=== PATIENT | female | born 1970 | race Caucasian/White ===

== ENCOUNTER 2019-01-10 15:47 | Emergency (ER) | payer SELFPAY ==
[~2019-01-10] VITALS: Ht 170.2 cm; Wt 89.4 kg
[2019-01-10] MEDS ORDERED: NITROGLYCERIN 0.4 MG SL TABS BTL 25'S SL PRN (16:15)
--- NOTE | 2019-01-10 16:19 | ED Chest Pain ---
General Chief Complaint: Cardiac/General Problems Stated Complaint: CHEST PAIN, RT ARM NUMB Nursing Triage Note: Ambulatory to rm 3. Pt c/o chest pain that began approximately 1 hour prior to arrival. Pt reports feeling as if there are "a ton of bricks sitting on my chest." Pt also c/o dizziness and pain radiating to L arm. Pt reports having a pacemaker. Nursing Sepsis Screen: No Definite Risk (CHARLOTTE NUNO DO) History of Present Illness Date Seen by Provider: Jan 10, 2019 Time Seen by Provider: 16:06 This is a 48-year-old female with a history of hypertension, pacemaker/ defibrillator placement, here for chest pain that started 1 hour ago at rest. It feels "like a ton of bricks on my chest". She says she has felt this pain in the past and denies a history of DC or PE. It is not pleuritic. No significant shortness of breath. No leg swelling. Mild cough, no fever, no hemoptysis. No recent stress test, no cardiac stents. No paresthesias in the extremities. Constant, moderate, nonradiating. No modifying factors. (CHARLOTTE NUNO DO) Allergies and Home Medications Allergies Coded Allergies: aspirin (Verified Allergy, Unknown, 01/10/19) morphine (Verified Allergy, Unknown, 01/10/19) Patient Home Medication List Home Medication List Reviewed: Yes (CHARLOTTE NUNO DO) Review of Systems Review of Systems Constitutional: no symptoms reported EENTM: No Symptoms Reported Respiratory: No Symptoms Reported Cardiovascular: See HPI Gastrointestinal: No Symptoms Reported Genitourinary: No Symptoms Reported Musculoskeletal: no symptoms reported Skin: no symptoms reported Psychiatric/Neurological: No Symptoms Reported Endocrine: No Symptoms Reported Hematologic/Lymphatic: No Symptoms Reported (CHARLOTTE NUNO DO) Past Oxmevlx-Yqhleq-Fgdpeo Hx Past Med/Social Hx: Reviewed Nursing Past Med/Soc Hx (CHARLOTTE NUNO DO) Patient Social History Recent Foreign Travel: No Contact w/Someone Who Travel: No Recent Infectious Disease Expo: No (CHARLOTTE NUNO DO) Physical Exam Vital Signs Vital Signs - First Documented 01/10/19 15:47 Temp 98.1 Pulse 86 Resp 10 B/P (MAP) 192/112 (138) Pulse Ox 98 O2 Delivery Room Air (LAMIN ADLER MD) Vital Signs Capillary Refill : Less Than 3 Seconds (CHARLOTTE NUNO DO) Height, Weight, BMI Height: 5'7.00" Weight: 197lbs. oz. 89.122694fx; BMI Method:Stated General Appearance: No Apparent Distress HEENT: PERRL/EOMI, Normal ENT Inspection, Moist Mucous Membranes Neck: Non Tender Respiratory: Lungs Clear; No Rales, No Rhonci, No Wheezing Cardiovascular: Regular Rate, Rhythm, No Edema, Normal Peripheral Pulses Gastrointestinal: Non Tender, Soft Neurologic/Psychiatric: Alert, Oriented x3, No Motor/Sensory Deficits, Normal Mood/Affect Skin: Warm/Dry (CHARLOTTE NUNO DO) Progress/Results/Core Measures Results/Orders Lab Results Laboratory Tests Test 01/10/19 16:00 01/10/19 18:54 Range/Units White Blood Count 8.5 4.3-11.0 10^3/uL Red Blood Count 5.06 4.35-5.85 10^6/uL Hemoglobin 15.8 11.5-16.0 G/DL Hematocrit 48 35-52 % Mean Corpuscular Volume 94 80-99 FL Mean Corpuscular Hemoglobin 31 25-34 PG Mean Corpuscular Hemoglobin Concent 33 32-36 G/DL Red Cell Distribution Width 14.1 10.0-14.5 % Platelet Count 223 130-400 10^3/uL Mean Platelet Volume 10.4 7.4-10.4 FL Prothrombin Time 12.4 12.2-14.7 SEC INR Comment 0.9 0.8-1.4 Activated Partial Thromboplast Time 27 24-35 SEC Sodium Level 138 135-145 MMOL/L Potassium Level 4.1 3.6-5.0 MMOL/L Chloride Level 98 98-107 MMOL/L Carbon Dioxide Level 24 21-32 MMOL/L Anion Gap 16 H 5-14 MMOL/L Blood Urea Nitrogen 14 7-18 MG/DL Creatinine 0.68 0.60-1.30 MG/DL Estimat Glomerular Filtration Rate > 60 BUN/Creatinine Ratio 21 Glucose Level 99 70-105 MG/DL Calcium Level 9.3 8.5-10.1 MG/DL Corrected Calcium 8.5-10.1 MG/DL Magnesium Level 1.9 1.8-2.4 MG/DL Total Bilirubin 0.3 0.1-1.0 MG/DL Aspartate Amino Transf (AST/SGOT) 11 5-34 U/L Alanine Aminotransferase (ALT/SGPT) 12 0-55 U/L Alkaline Phosphatase 114 40-136 U/L Troponin T < 6 6 <=10 NG/L Total Protein 8.0 6.4-8.2 GM/DL Albumin 4.7 H 3.2-4.5 GM/DL (LAMIN ADLER MD) My Orders Orders - LAMIN ADLER MD Troponin T (01/10/19 18:40) (LAMIN ADLER MD) Medications Given in ED Current Medications Medications Dose Ordered Sig/Norma Route Start Time Stop Time Status Last Admin Dose Admin Nitroglycerin 0.4 mg UD PRN SL 01/10/19 16:15 01/10/19 20:14 DC 01/10/19 16:25 0.4 MG (LAMIN ADLER MD) Vital Signs/I&O 01/10/19 01/10/19 15:47 19:54 Temp 98.1 Pulse 86 114 Resp 10 16 B/P (MAP) 192/112 (138) 164/104 (124) Pulse Ox 98 100 O2 Delivery Room Air Room Air (LAMIN ADLER MD) Blood Pressure Mean: 138 Progress Progress Note #1: Progress Note This is a 48-year-old female with a history of hypertension, tobacco abuse, here for chest pain. She is significantly hypertensive. We will treat with nitroglycerin initially and reassess. ECG is reassuring with only nonspecific change in aVF, T-wave inversion in 3. Progress Note #2: Progress Note Patient feels better after morphine. Vitals improved. Initial troponin is negative. We will check a repeat troponin and discharge if negative. Care is signed out to oncoming provider at 6:45 PM. (CHARLOTTE NUNO DO) Progress Note : Time: 19:50 Progress Note I assumed care of the patient at shift change from Dr. Nuno. She was feeling better and bp was improved. Awaiting repeat Troponin which came back still negative. Counseled to follow up with her PCP and to continue on regular medicines as prescribed. (LAMIN ADLER MD) EKG : Comment 2905: Normal sinus rhythm rate of 76. Normal axis. Nonspecific T-wave flattening in lead aVF, T-wave inversion in lead 3. Possible left atrial enlargement. (HCARLOTTE NUNO DO) Departure Impression Primary Impression: Chest pain Qualified Codes: R07.9 - Chest pain, unspecified Additional Impression: Hypertension Qualified Codes: I10 - Essential (primary) hypertension Disposition: 01 HOME, SELF-CARE Condition: Stable Departure-Patient Inst. Decision time for Depature: 20:06 (LAMIN ADLER MD) Referrals: RICHARD WILDE MD (PCP/Family) Primary Care Physician Patient Instructions: Chest Pain (DC), High Blood Pressure (DC) Add. Discharge Instructions: Check with the clinic for continued problems with your blood pressure and chest pressure in your chest. Your tests tonight have all looked ok and the heart tests have looked ok. Take your medicines as prescribed and follow up with Dr. Wilde in clinic. All discharge instructions reviewed with patient and/or family. Voiced understanding. CHARLOTTE NUNO DO Jan 10, 2019 16:19 LAMIN ADLER MD Jan 10, 2019 20:08
[2019-01-10 16:25] LABS: HEMOGLOBIN 15.8 G/DL (11.5-16.0); WHITE BLOOD COUNT 8.5 10^3/uL (4.3-11.0)
[2019-01-10 16:26] LABS: MEAN PLATELET VOLUME 10.4 FL (7.4-10.4); RED CELL DISTRIBUTION WIDTH 14.1 % (10.0-14.5)
--- NOTE | 2019-01-10 16:30 | NUR ---
Pt reassessed and pt reports pain worsened after nitro.
[2019-01-10 16:34] LABS: INR 0.9 (0.8-1.4); PROTHROMBIN TIME PATIENT 12.4 SEC (12.2-14.7)
[2019-01-10 16:41] LABS: ALANINE AMINOTRANSFERASE 12 U/L (0-55); ALBUMIN 4.7 GM/DL (3.2-4.5); ALKALINE PHOSPHATASE 114 U/L (40-136); BILIRUBIN,TOTAL 0.3 MG/DL (0.1-1.0); BUN/CREATININE RATIO 21; CALCIUM 9.3 MG/DL (8.5-10.1); CARBON DIOXIDE 24 MMOL/L (21-32); CHLORIDE 98 MMOL/L (98-107); CREATININE SERUM 0.68 MG/DL (0.60-1.30); GFR ESTIMATED > 60; GLUCOSE 99 MG/DL (70-105); MAGNESIUM 1.9 MG/DL (1.8-2.4); POTASSIUM 4.1 MMOL/L (3.6-5.0); SODIUM 138 MMOL/L (135-145)
--- NOTE | 2019-01-10 16:41 | Diagnostic Imaging Report ---
INDICATION: Chest pain EXAM: Portable chest at 4:09 PM FINDINGS: There is a unipolar pacemaker with IACD. Heart size and pulmonary vascularity are normal. Lungs are clear. There are no effusions or pneumothoraces. IMPRESSION: Negative chest. Dictated by: Dictated on workstation # [id number]
[2019-01-10] MEDS ORDERED: morphine INJ 10 MG/ML 1ML (SYR OR VIAL) IVP STA (17:27)
--- NOTE | 2019-01-10 19:20 | NUR ---
Report given to RYAN Chatman
--- NOTE | 2019-01-10 19:52 | NUR ---
Doctor Viola in to see the patient.
[2019-01-10 19:54] VITALS: BP 164/104
== END 2019-01-10 20:13 | disposition home or self-care (01) ==
LOC: EDUNIT# 15:47 → ER FS 15:48
DX: R07.9 Chest pain, unspecified (principal); I10 Essential (primary) hypertension; Z95.0 Presence of cardiac pacemaker; Z88.6 Allergy status to analgesic agent; Z88.5 Allergy status to narcotic agent
CPT/HCPCS: 36415; 71045; 80053; 83735; 84484; 85027; 85610; 85730; 93041

== ENCOUNTER 2019-02-27 19:28 | Emergency (ER) | payer BC, OTHER ==
[~2019-02-27] VITALS: Ht 170.2 cm; Wt 90.7 kg
[2019-02-27] MEDS ORDERED: RT-ALBUTEROL/IPRATROPIUM 3 ML (DUONEB) VIAL INH ONE (20:15)
--- NOTE | 2019-02-27 20:19 | Diagnostic Imaging Report ---
INDICATION: Cough for two months. EXAMINATION: PA and lateral views of the chest were obtained at 7:51 p.m. COMPARISON: 01/10/2019. FINDINGS: Pacemaker is unchanged. The heart is normal in size. Mediastinal silhouette is unremarkable. The lungs are clear. There is no pneumothorax, pleural fluid or focal infiltrate. IMPRESSION: No change in pacemaker device. No acute infiltrate or acute process in the chest. Dictated by: Dictated on workstation # [id number]
[2019-02-27 20:33] LABS: BASOPHILS % (AUTO) 0 % (0-10); EOSINOPHILS # (AUTO) 0.2 10^3/uL (0.0-0.3); EOSINOPHILS % (AUTO) 2 % (0-10); HEMATOCRIT 43 % (35-52); HEMOGLOBIN 14.4 G/DL (11.5-16.0); LYMPHOCYTES # (AUTO) 3.4 X 10^3 (1.0-4.0); LYMPHOCYTES % (AUTO) 34 % (12-44); MEAN CORPUSCULAR HEMOGLOBIN 32 PG (25-34); MEAN CORPUSCULAR HGB CONC 34 G/DL (32-36); MEAN CORPUSCULAR VOLUME 94 FL (80-99); MEAN PLATELET VOLUME 9.8 FL (7.4-10.4); MONOCYTES # (AUTO) 0.7 X 10^3 (0.0-1.0); MONOCYTES % (AUTO) 7 % (0-12); NEUTROPHILS # (AUTO) 5.7 X 10^3 (1.8-7.8); NEUTROPHILS % (AUTO) 57 % (42-75); PLATELET COUNT 277 10^3/uL (130-400); RED CELL DISTRIBUTION WIDTH 13.5 % (10.0-14.5); WHITE BLOOD COUNT 9.9 10^3/uL (4.3-11.0)
[2019-02-27] MEDS ORDERED: fentaNYL INJECTION 100 MCG/2 ML AMP IVP STA ×2 (20:42→23:15)
--- OUTSIDE RECORDS SUMMARY | 2019-02-27 20:42 | XMS REPORT | Continuity of Care Document ---
Author Organization Unknown Address Unknown Allergies There is no data. Medications There is no data. Problems There is no data. Procedures There is no data. Results Test Result Range PDM - 09 PANEL (PROFILE 1) - 01/08/19 15:01 Prescribed Drug 1 Oxycodone NRG Creatinine 87.5 mg/dL > or=20.0 pH 7.17 4.5 - 9.0 Oxidant NEGATIVE mcg/mL <200 Amphetamines NEGATIVE ng/mL <500 medMATCH Amphetamines CONSISTENT NRG Benzodiazepines NEGATIVE ng/mL <100 medMATCH Benzodiazepines CONSISTENT NRG Marijuana Metabolite NEGATIVE ng/mL <20 medMATCH Marijuana Metab CONSISTENT NRG Cocaine Metabolite NEGATIVE ng/mL <150 medMATCH Cocaine Metab CONSISTENT NRG Opiates POSITIVE ng/mL <100 Oxycodone POSITIVE ng/mL <100 COMMENT NRG Codeine NEGATIVE ng/mL <50 medMATCH Codeine CONSISTENT NRG Hydrocodone 2022 ng/mL <50 medMATCH Hydrocodone INCONSISTENT NRG Hydromorphone 184 ng/mL <50 medMATCH Hydromorphone INCONSISTENT NRG Morphine NEGATIVE ng/mL <50 medMATCH Morphine CONSISTENT NRG Norhydrocodone 3270 ng/mL <50 medMATCH Norhydrocodone INCONSISTENT NRG Noroxycodone 568 ng/mL <50 medMATCH Noroxycodone CONSISTENT NRG Oxycodone NEGATIVE ng/mL <50 medMATCH Oxycodone CONSISTENT NRG Oxymorphone 246 ng/mL <50 medMATCH Oxymorphone CONSISTENT NRG Barbiturates NEGATIVE ng/mL <300 medMATCH Barbiturates CONSISTENT NRG Methadone Metabolite NEGATIVE ng/mL <100 medMATCH Methadone Metab CONSISTENT NRG Phencyclidine NEGATIVE ng/mL <25 medMATCH Phencyclidine CONSISTENT NRG Encounters ACCT No. Visit Date/Time Discharge Status Pt. Type Provider Facility Loc./Unit Complaint [id number] 01/22/2019 13:30:00 01/22/2019 23:59:59 [facility] Outpatient RICHARD HERMAN [facility] [id number] 01/08/2019 11:40:00 Document Registration
[2019-02-27] MEDS ORDERED: CYCLOBENZAPRINE 10 MG (FLEXERIL) TAB PO STA (20:44)
[2019-02-27] MEDS ORDERED: NS 100 ML (IVPB) BAG IV ONE (20:45)
[2019-02-27] MEDS ORDERED: CATHETER FLUSH 10 ML SYR IV PRN (20:45)
[2019-02-27] MEDS ORDERED: IOHEXOL 350 MG/ML 100 ML (OMNIPAQUE 350) VIAL IV ONE (20:45)
[2019-02-27] MEDS ORDERED: HOLD METFORMIN - RECEIVED CONTRAST 20 ML VIAL IV SCH (20:45)
--- NOTE | 2019-02-27 20:51 | ED Cough/URI ---
General Chief Complaint: Cough/Cold/Flu Symptoms Stated Complaint: COUGH,DIZZY, CHEST PAIN, NAUSEA, RT EAR PAIN Nursing Triage Note: Patient states that she has been coughing for 2 months and on antibiotics. She states that Dr. Wilde told her that the next step was to have a CT. Patient states that her chest hurts from coughing, rating it at a 9. Sepsis Screen: No Definite Risk Source: patient History of Present Illness Date Seen by Provider: February 27, 2019 Time Seen by Provider: 20:20 Initial Comments 48 yo F presenting with cough x 2 months and short of breath. She is already had the course of antibiotics for this. She was told by Dr. Wilde the next thing she would need to do would be to have a CAT scan of her chest. She has been coughing so much that she's having pain in the anterior part of her chest. She rates it a 9 out of 10. It hurts more when palpated. She states that she just wants to get a good night's rest. She is also having a lot of right ear pain and sinus pain to the right side of her face. This is worse today. She has been getting eardrops for the right ear but it is not helping. She also has been having a lot of cough but hardly ever brings anything up. She denies having any fever or chills. She does have some nausea with this. She also gets dizzy when she is coughing hard. Allergies and Home Medications Allergies Coded Allergies: aspirin (Verified Allergy, Unknown, 01/10/19) morphine (Verified Allergy, Unknown, 01/10/19) Home Medications Cephalexin 500 Mg Tablet, 500 MG PO QID Prescribed by: LAMIN ADLER on 02/27/192321 Cyclobenzaprine HCl 10 Mg Tablet, 10 MG PO HS PRN for SPASMS Prescribed by: LAMIN ADLER on 02/27/19 232 Patient Home Medication List Home Medication List Reviewed: Yes Review of Systems Review of Systems Constitutional: No chills, No diaphoresis; dizziness (more so when she is coughing); No fever; malaise EENTM: ear pain (right-sided), tearing (right side), hoarseness, nose congestion, throat pain (from coughing), other (sinus pain and pressure on the right); No blurred vision, No mouth pain, No mouth swelling, No epistaxis Respiratory: see HPI, cough; No hemoptysis; short of breath; No stridor; wheezing Cardiovascular: see HPI, chest pain (anterior chest wall pain from coughing so much) Gastrointestinal: No abdominal pain; nausea Genitourinary: no symptoms reported Musculoskeletal: no symptoms reported Skin: no symptoms reported Psychiatric/Neurological: Headache (right-sided headache from her sinuses and ear pain) Hematologic/Lymphatic: No Symptoms Reported Immunological/Allergic: no symptoms reported Past Agwieut-Obtwne-Ncexlo Hx Past Med/Social Hx: Reviewed Nursing Past Med/Soc Hx Patient Social History Alcohol Use: Denies Use Recreational Drug Use: No Smoking Status: Current Everyday Smoker Type Used: Cigarettes 2nd Hand Smoke Exposure: Yes Recent Foreign Travel: No Contact w/Someone Who Travel: No Recent Infectious Disease Expo: No Recent Hopitalizations: No Physical Abuse: No Sexual Abuse: No Mistreated: No Fear: No Immunizations Up To Date Date of Influenza Vaccine: Jul 16, 2018 Seasonal Allergies Seasonal Allergies: No Past Medical History Surgeries: Yes Defibrillator, Pacemaker Respiratory: No Cardiac: Yes (pacemaker) Hypertension Neurological: No Genitourinary: No Gastrointestinal: No Musculoskeletal: Yes (ruptured disks) Endocrine: No HEENT: No Cancer: No Psychosocial: No Integumentary: No Blood Disorders: No Physical Exam Vital Signs - First Documented 02/27/19 19:33 Temp 97.0 Pulse 91 Resp 22 B/P (MAP) 160/90 (113) Pulse Ox 95 O2 Delivery Room Air Capillary Refill : Less Than 3 Seconds Height: 5'7.00" Weight: 200lbs. 0oz. 90.296970kv; BMI Method:Stated General Appearance: WD/WN, mild distress HEENT: PERRL/EOMI; No photophobia; TM abnormal (R) (right TM is erythematous bulging and has an effusion.), pharyngeal erythema; No tonsillar exudate; other (tenderness to palpation over the frontal and maxillary sinus on the right side. Right conjunctiva is injected) Neck: non-tender, full range of motion, supple, normal inspection Respiratory: no respiratory distress, no accessory muscle use, decreased breath sounds; No crackles, No rales, No rhonchi, No stridor; wheezing (end expiratory wheezing), other (anterior chest wall tenderness especially along the sternal borders) Cardiovascular: normal peripheral pulses, regular rate, rhythm, no murmur Gastrointestinal: normal bowel sounds, non tender, soft, no pulsatile mass Extremities: normal range of motion, non-tender, normal inspection Neurologic/Psychiatric: alert, oriented x 3 Skin: normal color, warm/dry Progress/Results/Core Measures Suspected Sepsis Recent Fever Within 48 Hours: No Infection Criteria Present: None New/Unexplained Altered Menta: No Sepsis Screen: No Definite Risk SIRS Temperature:97.0 Pulse: 91 Respiratory Rate: 22 Laboratory Tests 02/27/19 20:23: White Blood Count 9.9 Blood Pressure 160 /90 Mean: 113 Laboratory Tests 02/27/19 20:23: Creatinine 0.69, Platelet Count 277, Total Bilirubin 0.2 Results/Orders Lab Results Laboratory Tests Test 02/27/19 20:23 Range/Units White Blood Count 9.9 4.3-11.0 10^3/uL Red Blood Count 4.53 4.35-5.85 10^6/uL Hemoglobin 14.4 11.5-16.0 G/DL Hematocrit 43 35-52 % Mean Corpuscular Volume 94 80-99 FL Mean Corpuscular Hemoglobin 32 25-34 PG Mean Corpuscular Hemoglobin Concent 34 32-36 G/DL Red Cell Distribution Width 13.5 10.0-14.5 % Platelet Count 277 130-400 10^3/uL Mean Platelet Volume 9.8 7.4-10.4 FL Neutrophils (%) (Auto) 57 42-75 % Lymphocytes (%) (Auto) 34 12-44 % Monocytes (%) (Auto) 7 0-12 % Eosinophils (%) (Auto) 2 0-10 % Basophils (%) (Auto) 0 0-10 % Neutrophils # (Auto) 5.7 1.8-7.8 X 10^3 Lymphocytes # (Auto) 3.4 1.0-4.0 X 10^3 Monocytes # (Auto) 0.7 0.0-1.0 X 10^3 Eosinophils # (Auto) 0.2 0.0-0.3 10^3/uL Basophils # (Auto) 0.0 0.0-0.1 10^3/uL Sodium Level 142 135-145 MMOL/L Potassium Level 3.4 L 3.6-5.0 MMOL/L Chloride Level 102 98-107 MMOL/L Carbon Dioxide Level 21 21-32 MMOL/L Anion Gap 19 H 5-14 MMOL/L Blood Urea Nitrogen 14 7-18 MG/DL Creatinine 0.69 0.60-1.30 MG/DL Estimat Glomerular Filtration Rate > 60 BUN/Creatinine Ratio 20 Glucose Level 105 70-105 MG/DL Calcium Level 9.1 8.5-10.1 MG/DL Corrected Calcium 8.8 8.5-10.1 MG/DL Total Bilirubin 0.2 0.1-1.0 MG/DL Aspartate Amino Transf (AST/SGOT) 18 5-34 U/L Alanine Aminotransferase (ALT/SGPT) 21 0-55 U/L Alkaline Phosphatase 130 40-136 U/L Total Protein 7.6 6.4-8.2 GM/DL Albumin 4.4 3.2-4.5 GM/DL My Orders Orders - LAMIN ADLER MD Cbc With Automated Diff (02/27/19 20:07) Comprehensive Metabolic Panel (02/27/19 20:07) Albuterol/Ipra Inhalation Soln (Duoneb I (02/27/19 20:15) Chest Pa/Lat (2 View) (02/27/19 20:07) Ed Iv/Invasive Line Start (02/27/19 20:07) Sputum Culture (02/27/19 20:07) Svn Small Volume Nebulizer (02/27/19 20:07) Fentanyl Injection (Sublimaze Injection (02/27/19 20:42) Ct Sinus Complete Wo (02/27/19 20:43) Ct Chest W (02/27/19 20:43) Iohexol Injection (Omnipaque 350 Mg/Ml 1 (02/27/19 20:45) Received Contrast (Hold Metformin- Contr (02/27/19 20:45) Sodium Chloride Flush (Catheter Flush Sy (02/27/19 20:45) Ns (Ivpb) (Sodium Chloride 0.9% Ivpb Bag (02/27/19 20:45) Cyclobenzaprine Tablet (Flexeril Tablet) (02/27/19 20:44) Fentanyl Injection (Sublimaze Injection (02/27/19 23:15) Medications Given in ED Current Medications Medications Dose Ordered Sig/Norma Route Start Time Stop Time Status Last Admin Dose Admin Albuterol/ Ipratropium 3 ml ONCE ONCE INH 02/27/19 20:15 02/27/19 20:16 DC 02/27/19 20:15 3 ML Iohexol 75 ml ONCE ONCE IV 02/27/19 20:45 02/27/19 20:46 DC 02/27/19 20:59 75 ML Sodium Chloride 10 ml NEEDED PRN IV 02/27/19 20:45 02/28/19 00:25 DC 02/27/19 20:59 10 ML Sodium Chloride 100 ml ONCE ONCE IV 02/27/19 20:45 02/27/19 20:46 DC 02/27/19 20:59 100 ML Vital Signs/I&O 02/27/19 02/27/19 02/27/19 19:33 19:33 23:32 Temp 97.0 98.9 Pulse 91 86 Resp 22 18 B/P (MAP) 160/90 (113) 148/92 (110) Pulse Ox 95 96 O2 Delivery Room Air Room Air Room Air Capillary Refill : Less Than 3 Seconds Blood Pressure Mean: 113 Progress Note #1: Progress Note Obtain labs and chest x-ray as well as a sputum culture she expectorates anything. Will try a DuoNeb breathing treatment for her cough and shortness of breath. Progress Note #2: Time: 20:35 Progress Note Add on a CT of her sinuses and chest since she has such tenderness to her sinuses on the right side and erythema to the TM on that side. Also since she reports the Dr. Wilde had recommended she get a CAT scan of her chest will determine if there is any other pathology that might be causing her chronic cough over the last few months here. Will try dose of fentanyl to see if it will help with her cough and chest pain. will also try a dose of cyclobenzaprine as a muscle relaxer to try and help her chest wall pain Progress Note #3: Progress Note CT scan of her sinuses showed that she has right-sided maxillary sinus infection. She had a midesophagus mass show up on the CT of her chest. She had no complaints of difficulty swallowing when I asked her about it however she later admitted that occasionally she does have difficulty with swallowing things. The area of the mass is sitting in spot that it could be pressing against part of her trachea and airway were could be causing some irritation and potentially contributing to her cough. There were no abnormalities in the lungs themselves and no lymphadenopathy. Will have the patient follow-up through Dr. Wilde to obtain an EGD to further evaluate the mid esophageal mass. Will do a longer course of antibiotics to help try and treat for the maxillary sinusitis. Also encouraged to see ENT if not improving. Will also prescribe cyclobenzaprine for home to the try at bedtime to help her rest and help with her chest wall pain. Diagnostic Imaging Diagonstic Imaging: Xray Plain Films/CT/US/NM/MRI: chest Comments NAME: JENNIFER DICKERSON [facility] REC#: [id number] PT STATUS: REG ER : 1970 PHYSICIAN: LAMIN ADLER MD ADMIT DATE: 02/27/19/ER FS Signed Date of Exam:02/27/19 CHEST PA/LAT (2 VIEW) INDICATION: Cough for two months. EXAMINATION: PA and lateral views of the chest were obtained at 7:51 p.m. COMPARISON: 01/10/2019. FINDINGS: Pacemaker is unchanged. The heart is normal in size. Mediastinal silhouette is unremarkable. The lungs are clear. There is no pneumothorax, pleural fluid or focal infiltrate. IMPRESSION: No change in pacemaker device. No acute infiltrate or acute process in the chest. Dictated by: Dictated on workstation # [id number] Dict: 02/27/192012 Trans: 02/27/192039 [facility] [id number] Interpreted by: MAIKOL FERRARA MD Electronically signed by: MAIKOL FERRARA MD 02/27/192039 Reviewed: Reviewed by Me (and radiologist reading.) Diagonstic Imaging: CT Plain Films/CT/US/NM/MRI: chest Comments NAME: JENNIFER DICKERSON [facility] REC#: [id number] PT STATUS: REG ER : 1970 PHYSICIAN: LAMIN ADLER MD ADMIT DATE: 02/27/19/ER FS Signed Date of Exam:02/27/19 CT CHEST W INDICATION: Cough x2 months, history of pacemaker. EXAMINATION: CT chest was obtained with IV contrast bolus. COMPARISON: There is no prior chest CT for comparison. FINDINGS: There is a focal area of mass effect associated with the mid thoracic esophagus, measuring about 3.0 cm x 1.5 cm in the axial plane. The esophagus above and below this level does not appear remarkable. There is no adenopathy in the keenan or mediastinum. There are no enlarged axillary nodes. There is a pacemaker device in place. There is an incidental 1.5 cm right thyroid nodule, inferiorly. There is no pleural or pericardial fluid. There is no overt bony abnormality in the chest. Lung parenchymal windows demonstrate some minimal dependent atelectatic changes in the lung bases. There is no consolidation or discrete pulmonary parenchymal nodule. Visualized portions of the upper abdomen demonstrated evidence of previous cholecystectomy. IMPRESSION: There is a focal masslike area in the mid esophagus, this may represent an esophageal mass, extrinsic mass or a possible foreign body lodged in the esophagus. I would suggest further evaluation with endoscopy. There is no adenopathy in the mediastinum or keenan. There is incidental right thyroid nodule which can be followed sonographically. There is no pulmonary parenchymal infiltrate, nodule or pleural fluid. The patient has had previous cholecystectomy. Dictated by: Dictated on workstation # [id number] Dict: 02/27/192111 Trans: 02/27/192211 [facility] [id number] Interpreted by: MAIKOL FERRARA MD Electronically signed by: MAKIOL FERRARA MD 02/27/192211 Reviewed: Reviewed by Me Diagonstic Imaging: CT Plain Films/CT/US/NM/MRI: other (sinuses) Comments NAME: JENNIFER DICKERSON [facility] REC#: [id number] PT STATUS: REG ER : 1970 PHYSICIAN: LAMIN ADLER MD ADMIT DATE: 02/27/19/ER FS Signed Date of Exam:02/27/19 CT SINUS COMPLETE WO INDICATION: Sinusitis and right ear redness and pain. EXAMINATION: CT sinuses were obtained with axial slices without contrast and sagittal and coronal reconstructions. FINDINGS: There is extensive mucosal thickening in the right maxillary sinus. The left maxillary sinus appears clear. The ethmoid air cells are grossly clear. The sphenoid sinuses are clear. The frontal sinuses are hypoplastic. The maxillary teeth are absent. There are lucencies in the maxilla compatible with periodontal disease. There is an old nasal fracture which is healed. There is no orbital mass or hematoma. IMPRESSION: Extensive mucosal thickening in the right maxillary sinus. The remainder of the sinuses are clear. There is no intraorbital hematoma. There are chronic appearing lucencies in the maxilla, maxillary teeth are absent. Dictated by: Dictated on workstation # [id number] Dict: 02/27/192106 Trans: 02/27/192117 E [id number] Interpreted by: MAIKOL FERRARA MD Electronically signed by: MAIKOL FERRARA MD 02/27/192117 Reviewed: Reviewed by Me (and radiologist reading) Departure Impression Primary Impression: Right maxillary sinusitis Additional Impressions: Suppurative otitis media of right ear without rupture of ear drum Esophageal mass Chronic cough Disposition: HOME, SELF-CARE Condition: Stable Departure-Patient Inst. Decision time for Depature: 23:18 Referrals: RICHARD WILDE MD (PCP/Family) Primary Care Physician Patient Instructions: Cough, Adult (DC), EGD-ESOPHAGOGASTRODUODENOSCOPY, Ear Infections (Otitis Media), Sinusitis, Adult (DC) Add. Discharge Instructions: Call Dr. Wilde in the morning to let him know that the CT scan tonight showed a mass in your esophagus and Radiology recommended getting an EGD or scope to look at the mass. This is right against part of your lungs and can be causing irritation that might making you have a cough. You also have sinusitis and an ear infection still so taking a longer course of antibiotics to help clear that up would be helpful as well. You may need to see an ENT doctor if you have continued problems and it is not improving. All discharge instructions reviewed with patient and/or family. Voiced understanding. Scripts Cyclobenzaprine HCl (Cyclobenzaprine HCl) 10 Mg Tablet 10 MG PO HS PRN for SPASMS for 15 Days, #15 TAB 0 Refills Prov: LAMIN ADLER MD 02/27/19 Cephalexin (Cephalexin) 500 Mg Tablet 500 MG PO QID for sinusitis for 14 Days, #56 TAB 0 Refills Prov: LAMIN ADLER MD 02/27/19 LAIMN ADLER MD February 27, 2019 20:51
[2019-02-27 20:59] LABS: ALANINE AMINOTRANSFERASE 21 U/L (0-55); ALBUMIN 4.4 GM/DL (3.2-4.5); ALKALINE PHOSPHATASE 130 U/L (40-136); BILIRUBIN,TOTAL 0.2 MG/DL (0.1-1.0); BUN/CREATININE RATIO 20; CALCIUM 9.1 MG/DL (8.5-10.1); CARBON DIOXIDE 21 MMOL/L (21-32); CHLORIDE 102 MMOL/L (98-107); CREATININE SERUM 0.69 MG/DL (0.60-1.30); GFR ESTIMATED > 60; GLUCOSE 105 MG/DL (70-105); POTASSIUM 3.4 MMOL/L (3.6-5.0); SODIUM 142 MMOL/L (135-145); TOTAL PROTEIN 7.6 GM/DL (6.4-8.2)
--- NOTE | 2019-02-27 21:13 | Diagnostic Imaging Report ---
INDICATION: Sinusitis and right ear redness and pain. EXAMINATION: CT sinuses were obtained with axial slices without contrast and sagittal and coronal reconstructions. FINDINGS: There is extensive mucosal thickening in the right maxillary sinus. The left maxillary sinus appears clear. The ethmoid air cells are grossly clear. The sphenoid sinuses are clear. The frontal sinuses are hypoplastic. The maxillary teeth are absent. There are lucencies in the maxilla compatible with periodontal disease. There is an old nasal fracture which is healed. There is no orbital mass or hematoma. IMPRESSION: Extensive mucosal thickening in the right maxillary sinus. The remainder of the sinuses are clear. There is no intraorbital hematoma. There are chronic appearing lucencies in the maxilla, maxillary teeth are absent. Dictated by: Dictated on workstation # [id number]
--- NOTE | 2019-02-27 21:30 | Diagnostic Imaging Report ---
INDICATION: Cough x2 months, history of pacemaker. EXAMINATION: CT chest was obtained with IV contrast bolus. COMPARISON: There is no prior chest CT for comparison. FINDINGS: There is a focal area of mass effect associated with the mid thoracic esophagus, measuring about 3.0 cm x 1.5 cm in the axial plane. The esophagus above and below this level does not appear remarkable. There is no adenopathy in the keenan or mediastinum. There are no enlarged axillary nodes. There is a pacemaker device in place. There is an incidental 1.5 cm right thyroid nodule, inferiorly. There is no pleural or pericardial fluid. There is no overt bony abnormality in the chest. Lung parenchymal windows demonstrate some minimal dependent atelectatic changes in the lung bases. There is no consolidation or discrete pulmonary parenchymal nodule. Visualized portions of the upper abdomen demonstrated evidence of previous cholecystectomy. IMPRESSION: There is a focal masslike area in the mid esophagus, this may represent an esophageal mass, extrinsic mass or a possible foreign body lodged in the esophagus. I would suggest further evaluation with endoscopy. There is no adenopathy in the mediastinum or keenan. There is incidental right thyroid nodule which can be followed sonographically. There is no pulmonary parenchymal infiltrate, nodule or pleural fluid. The patient has had previous cholecystectomy. Dictated by: Dictated on workstation # [id number]
[2019-02-27] MEDS ORDERED: CYCL10TA9 PO (23:22)
[2019-02-27] MEDS ORDERED: CEPH500T PO (23:22)
[2019-02-27 23:32] VITALS: BP 148/92
== END 2019-02-27 23:32 | disposition home or self-care (01) ==
LOC: EDUNIT# 19:28 → ER FS 19:29
DX: J32.0 Chronic maxillary sinusitis (principal); H66.41 Suppurative otitis media, unspecified, right ear; K22.8 Other specified diseases of esophagus; R05 Cough; I10 Essential (primary) hypertension; F17.210 Nicotine dependence, cigarettes, uncomplicated; Z95.810 Presence of automatic (implantable) cardiac defibrillator; Z88.6 Allergy status to analgesic agent; Z88.5 Allergy status to narcotic agent
CPT/HCPCS: 36415; 70486; 71046; 71260; 80053; 85025; 87070; 87077; 87205; 94640; 96374; 96376

== ENCOUNTER 2019-03-04 21:33 | Emergency (ER) | payer BC ==
[~2019-03-04] VITALS: Ht 172.7 cm; Wt 90.7 kg
[~2019-03-04 21:33] MED LIST: CEPH500T PO; CYCL10TA9 PO
--- OUTSIDE RECORDS SUMMARY | 2019-03-04 21:38 | XMS REPORT | Continuity of Care Document ---
[...] Status Pt. Type Provider Facility Loc./Unit Complaint [id number] 01/22/2019 13:30:00 01/22/2019 23:59:59 [facility] Outpatient RICHARD HERMAN [facility] [id number] 01/08/2019 11:40:00 Document Registration
[2019-03-04] MEDS ORDERED: NITROGLYCERIN 2% OINT 1 GM UNIT DOSE PACKET TOP ONE (22:00)
--- NOTE | 2019-03-04 22:12 | ED General ---
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 Her chest pain is pressure-like and started an hour ago at rest. No significant shortness of breath with this. 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 She is known to cardiology at [facility]. She is significantly hypertensive upon arrival, she states that she has been taking her medications as prescribed. No fever, no leg swelling, no hemoptysis. Allergies and Home Medications Allergies Coded Allergies: aspirin (Verified Allergy, Unknown, 01/10/19) morphine (Verified Allergy, Unknown, 01/10/19) Home Medications Cephalexin 500 Mg Tablet, 500 MG PO QID Prescribed by: LAMIN ADLER on 02/27/192321 Cyclobenzaprine HCl 10 Mg Tablet, 10 MG PO HS PRN for SPASMS Prescribed by: LAMIN ADLER on 02/27/192321 Patient Home Medication List Home Medication List Reviewed: Yes Review of Systems Review of Systems Constitutional: no symptoms reported EENTM: no symptoms reported Respiratory: see HPI Cardiovascular: see HPI Gastrointestinal: no symptoms reported Genitourinary: no symptoms reported Musculoskeletal: no symptoms reported Skin: no symptoms reported Psychiatric/Neurological: No Symptoms Reported Hematologic/Lymphatic: No Symptoms Reported Immunological/Allergic: no symptoms reported Past [place]se[place] Hx Past Med/Social Hx: Reviewed Nursing Past Med/Soc Hx Patient Social History Type Used: Cigarettes 2nd Hand Smoke Exposure: Yes Recent Foreign Travel: No Contact w/Someone Who Travel: No Recent Hopitalizations: No Immunizations Up To Date Date of Influenza Vaccine: Jul 16, 2018 Seasonal Allergies Seasonal Allergies: No Past Medical History Surgeries: Yes Defibrillator, Pacemaker Respiratory: No Cardiac: Yes (pacemaker) Hypertension Neurological: No Genitourinary: No Gastrointestinal: No Musculoskeletal: Yes (ruptured disks) Endocrine: No HEENT: No Cancer: No Psychosocial: No Integumentary: No Blood Disorders: No Physical Exam Vital Signs Vital Signs - First Documented 03/04/19 22:30 Temp 97.7 Pulse 85 Resp 16 B/P (MAP) 205/120 (148) Pulse Ox 97 O2 Delivery Room Air Capillary Refill : Height, Weight, BMI Height: 5'7.00" Weight: 200lbs. 0oz. [id number]; BMI Method:Stated General Appearance: No Apparent Distress HEENT: Moist Mucous Membranes (no visible discomfort) Neck: Supple; No JVD Respiratory: Lungs Clear Cardiovascular: Regular Rate, Rhythm, No Edema, Normal Peripheral Pulses Gastrointestinal: Non Tender, Soft Neurologic/Psychiatric: Alert, No Motor/Sensory Deficits, Normal Mood/Affect Skin: Warm/Dry Progress/Results/Core Measures Suspected Sepsis SIRS Temperature: Pulse: Respiratory Rate: Laboratory Tests 03/04/19 22:00: White Blood Count 9.1 Blood Pressure / Mean: Laboratory Tests 03/04/19 22:00: Creatinine 0.59L, INR Comment 0.9, Platelet Count 261, Total Bilirubin 0.2 Results/Orders Lab Results Laboratory Tests Test 03/04/19 22:00 Range/Units White Blood Count 9.1 4.3-11.0 10^3/uL Red Blood Count 4.19 L 4.35-5.85 10^6/uL Hemoglobin 13.4 11.5-16.0 G/DL Hematocrit 39 35-52 % Mean Corpuscular Volume 34 L 80-99 FL Mean Corpuscular Hemoglobin 32 25-34 PG Mean Corpuscular Hemoglobin Concent 34 32-36 G/DL Red Cell Distribution Width 13.8 10.0-14.5 % Platelet Count 261 130-400 10^3/uL Mean Platelet Volume 9.9 7.4-10.4 FL Neutrophils (%) (Auto) 49 42-75 % Lymphocytes (%) (Auto) 43 12-44 % Monocytes (%) (Auto) 6 0-12 % Eosinophils (%) (Auto) 1 0-10 % Basophils (%) (Auto) 1 0-10 % Neutrophils # (Auto) 4.4 1.8-7.8 X 10^3 Lymphocytes # (Auto) 3.9 1.0-4.0 X 10^3 Monocytes # (Auto) 0.5 0.0-1.0 X 10^3 Eosinophils # (Auto) 0.1 0.0-0.3 10^3/uL Basophils # (Auto) 0.1 0.0-0.1 10^3/uL Prothrombin Time 12.0 L 12.2-14.7 SEC INR Comment 0.9 0.8-1.4 Activated Partial Thromboplast Time 28 24-35 SEC Sodium Level 143 135-145 MMOL/L Potassium Level 3.5 L 3.6-5.0 MMOL/L Chloride Level 104 98-107 MMOL/L Carbon Dioxide Level 20 L 21-32 MMOL/L Anion Gap 19 H 5-14 MMOL/L Blood Urea Nitrogen 11 7-18 MG/DL Creatinine 0.59 L 0.60-1.30 MG/DL Estimat Glomerular Filtration Rate > 60 BUN/Creatinine Ratio 19 Glucose Level 118 H 70-105 MG/DL Calcium Level 8.9 8.5-10.1 MG/DL Corrected Calcium 8.8 8.5-10.1 MG/DL Magnesium Level 1.8 1.8-2.4 MG/DL Total Bilirubin 0.2 0.1-1.0 MG/DL Aspartate Amino Transf (AST/SGOT) 11 5-34 U/L Alanine Aminotransferase (ALT/SGPT) 11 0-55 U/L Alkaline Phosphatase 105 40-136 U/L Troponin T < 6 <=10 NG/L Pro-B-Type Natriuretic Peptide 398.7 H <75.0 PG/ML Total Protein 6.8 6.4-8.2 GM/DL Albumin 4.1 3.2-4.5 GM/DL My Orders Orders - CHARLOTTE GUTHRIE DO Cbc With Automated Diff (03/04/19 21:51) Magnesium (03/04/19 21:51) Chest 1 View Ap/Pa Only (03/04/19 21:51) Ekg Tracing (03/04/19 21:51) Comprehensive Metabolic Panel (03/04/19 21:51) Protime With Inr (03/04/19 21:51) Partial Thromboplastin Time (03/04/19 21:51) O2 (03/04/19 21:51) Monitor-Rhythm Ecg Trace Only (03/04/19 21:51) Ed Iv/Invasive Line Start (03/04/19 21:51) Troponin T (03/04/19 21:51) Probnp Fs (03/04/19 21:51) Nitroglycerin Ointment (Nitrobid Ointme (03/04/19 22:00) Labetalol Injection (Normodyne Injection (03/04/19 23:15) Medications Given in ED Current Medications Medications Dose Ordered Sig/Norma Route Start Time Stop Time Status Last Admin Dose Admin Nitroglycerin 1 inch ONCE ONCE TOP 03/04/19 22:00 03/04/19 22:01 DC 03/04/19 22:09 1 INCH Vital Signs/I&O 03/04/19 22:30 Temp 97.7 Pulse 85 Resp 16 B/P (MAP) 205/120 (148) Pulse Ox 97 O2 Delivery Room Air Capillary Refill : Progress Note : Progress Note Significant HTN, CP, 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 NTG applied topically with some improvement in BP and symptoms, given IV labetalol. Discussed case w Dr Hernandez at [facility] where pt goes for cardiac care, he accepts admission. ECG EKG : Comment 2790: Sinus rhythm rate of 83. First-degree AV block [place] 211. Early precordial R- wave progression. No ST or T-wave abnormalities. QTC 494. Diagnostic Imaging Diagonstic Imaging: Xray Comments EP interpretation: Airway is midline, cardiomediastinal silhouette is within normal limits, diaphragmatic borders are sharp with no effusions, no pneumothoraces, pacemaker/AICD is in place without obvious lead discontinuity. Reviewed: Reviewed by Me Critical Care Note Critical Care Start Time: 22:34 Stop Time: 23:09 Total Time (minutes) 35 Progress Critical care time is exclusive of time spent on separately billable procedures. Hemodynamic management. Frequent reassessments. Discussing case with receiving facility and EMS. Interpretation of chest x-ray, EKG, blood tests. Departure Impression Primary Impression: Hypertensive urgency Additional Impressions: Chest pain Qualified Codes: R07.2 - Precordial pain AICD discharge Disposition: XFER SHT-TRM HOSP Condition: Stable Transfer Time Spoke to Accepting Phy: 23:06 Transfer Facility: Dr Hernandez at [facility] Method of Transfer: EMS Departure-Patient Inst. Referrals: RICHARD HERMAN MD (PCP/Family) Primary Care Physician CHARLOTTE GUTHRIE DO March 04, 2019 22:12
[2019-03-04 22:13] LABS: HEMATOCRIT 39 % (35-52); HEMOGLOBIN 13.4 G/DL (11.5-16.0); MEAN CORPUSCULAR HEMOGLOBIN 32 PG (25-34); MEAN CORPUSCULAR HGB CONC 34 G/DL (32-36); MEAN CORPUSCULAR VOLUME 34 FL (80-99); MEAN PLATELET VOLUME 9.9 FL (7.4-10.4); PLATELET COUNT 261 10^3/uL (130-400); RED CELL DISTRIBUTION WIDTH 13.8 % (10.0-14.5); WHITE BLOOD COUNT 9.1 10^3/uL (4.3-11.0)
[2019-03-04 22:14] LABS: BASOPHILS # (AUTO) 0.1 10^3/uL (0.0-0.1); BASOPHILS % (AUTO) 1 % (0-10); EOSINOPHILS # (AUTO) 0.1 10^3/uL (0.0-0.3); EOSINOPHILS % (AUTO) 1 % (0-10); LYMPHOCYTES # (AUTO) 3.9 X 10^3 (1.0-4.0); LYMPHOCYTES % (AUTO) 43 % (12-44); MONOCYTES # (AUTO) 0.5 X 10^3 (0.0-1.0); MONOCYTES % (AUTO) 6 % (0-12); NEUTROPHILS # (AUTO) 4.4 X 10^3 (1.8-7.8); NEUTROPHILS % (AUTO) 49 % (42-75)
--- NOTE | 2019-03-04 22:30 | NUR ---
Pt pressed call light for chest pain is still there. She was repositioned in bed, pillow adjusted and TV turned on. Pt was informed that we just applied nitro and lets see if it helps with the chest pain and provider will be notifed about Chest Pain. Pt was informed that the nitro was helping with her BP. Dr. Nuno notified.
--- NOTE | 2019-03-04 22:30 | NUR ---
After Nitro was placed to left side of chest, BP has decreased from 205/120, 194/108, 184/103 to 174/98. Doctor was notifed and stated he wants to maintain SBP under 170
[2019-03-04 22:33] LABS: INR 0.9 (0.8-1.4)
[2019-03-04 22:45] LABS: SODIUM 143 MMOL/L (135-145)
[2019-03-04 22:46] LABS: ALANINE AMINOTRANSFERASE 11 U/L (0-55); ALBUMIN 4.1 GM/DL (3.2-4.5); ALKALINE PHOSPHATASE 105 U/L (40-136); BILIRUBIN,TOTAL 0.2 MG/DL (0.1-1.0); BUN/CREATININE RATIO 19; CALCIUM 8.9 MG/DL (8.5-10.1); CARBON DIOXIDE 20 MMOL/L (21-32); CHLORIDE 104 MMOL/L (98-107); CREATININE SERUM 0.59 MG/DL (0.60-1.30); GFR ESTIMATED > 60; GLUCOSE 118 MG/DL (70-105); MAGNESIUM 1.8 MG/DL (1.8-2.4); POTASSIUM 3.5 MMOL/L (3.6-5.0); TOTAL PROTEIN 6.8 GM/DL (6.4-8.2)
[2019-03-04] MEDS ORDERED: LABETALOL HCL 20 MG/4 ML VIAL IV ONE ×2 (23:15→23:30)
--- NOTE | 2019-03-04 23:44 | NUR ---
After giving Labetalol, BP was 157/97 (113)
[2019-03-04] MEDS ORDERED: morphine INJ 10 MG/ML 1ML (SYR OR VIAL) IVP STA (23:58)
[2019-03-05] MEDS ORDERED: cefTRIAXone FOR IV USE 1,000 MG in WATER (STERILE) FOR INJECTION 10 ML IV ONE ×2
[2019-03-05] MEDS ORDERED: ONDANSETRON 4 MG/2 ML (SDV) Z0FRAN IVP ONE
--- NOTE | 2019-03-05 00:07 | NUR ---
[facility] called at this time for request to transfer Pt to [facility].
--- NOTE | 2019-03-05 00:14 | NUR ---
[facility] called back and stated they could not take pt.
--- NOTE | 2019-03-05 00:33 | NUR ---
[facility] was called for transfer and said they couldn't take pt.
--- NOTE | 2019-03-05 00:36 | NUR ---
[facility] was called at this time for transfer. Stated would call back with answer. Took Pt information.
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
[2019-03-05 01:03] VITALS: BP 149/85
[2019-03-05] MEDS ORDERED: HYDROmorphone 2 MG/ML VIAL (DILAUDID) IV ONE (01:30)
[2019-03-05 03:00] VITALS: BP 149/86
[2019-03-05 03:21] VITALS: BP 131/86
[2019-03-05 03:48] VITALS: BP 130/82
--- NOTE | 2019-03-05 04:03 | NUR ---
[facility] was paged out for patient and arrived at this time. Report was given to MARLEE Sy and MARLEE Magaña. Care was transferred at this time.
--- NOTE | 2019-03-05 06:29 | Diagnostic Imaging Report ---
EXAMINATION: AP upright portable chest. INDICATION: Chest pain. COMPARISON: Multiple priors, most recent performed on 02/27/2019. FINDINGS: Single lead transvenous pacemaker/ICD is unchanged in position. The lungs are clear and the pulmonary vasculature is normal. No pneumothorax or large pleural effusion. The cardiomediastinal silhouette is normal. No acute osseous abnormality. IMPRESSION: No acute chest disease. No significant change from prior. Dictated by: Dictated on workstation # [id number]
== END 2019-03-05 04:07 | disposition short-term general hospital (02) ==
LOC: EDUNIT# 21:33 → ER FS 21:34
DX: T82.198A Other mechanical complication of other cardiac electronic device, initial encounter (principal); I16.0 Hypertensive urgency; R07.9 Chest pain, unspecified; I10 Essential (primary) hypertension; Z95.810 Presence of automatic (implantable) cardiac defibrillator; Z88.6 Allergy status to analgesic agent; Z88.5 Allergy status to narcotic agent; Z77.22 Contact with and (suspected) exposure to environmental tobacco smoke (acute) (chronic)
CPT/HCPCS: 36415; 71045; 80053; 83735; 83880; 84484; 85025; 85610; 85730; 93005; 93041

== ENCOUNTER 2019-03-07 18:39 | Emergency (ER) | payer BC ==
[~2019-03-07] VITALS: Ht 170.2 cm; Wt 90.7 kg
[2019-03-07] MEDS ORDERED: cloNIDine 0.2 MG (CATAPRES) TAB PO ONE (19:15)
[2019-03-07] MEDS ORDERED: KETOROLAC 60 MG/2 ML VIAL IM ONE (19:15)
[2019-03-07] MEDS ORDERED: cloNIDine 0.1 MG (CATAPRES) TAB ONE (19:17)
--- NOTE | 2019-03-07 19:22 | ED Lower Extremity ---
General Chief Complaint: Lower Extremity Stated Complaint: PAIN Source: patient Exam Limitations: no limitations History of Present Illness Date Seen by Provider: March 07, 2019 Time Seen by Provider: 19:17 Initial Comments Patient is a 48-year-old female with history of chronic back pain, CAD, AICD placement and recent heart catheterization 2 days ago requiring PTCA. Patient reports right groin pain over heart catheter insertion site. Patient takes oxycodone 3 times daily for treatment of chronic back pain. She states her right groin pain is poorly controlled. On exam, there is a puncture wound with minimal swelling and light bruising but no hematoma. There femoral and popliteal pulse are 3. There is no surrounding rash, cellulitis or active bleeding. Right groin is appropriately tender post catheterization. Of note, the patient is hypertensive with blood pressure 210/110. Patient states she is always this hypertensive and that she is compliant with her blood pressure medication. She denies chest pain palpitations, nausea vomiting or sweats. No other acute symptoms or complaints. Patient's heart catheterization was performed by Dr. Corey at [facility]. Patient is not spoke to her center mgr today regarding her right groin complaint. She does have a follow-up appointment with her PCP tomorrow morning. Severity: moderate Method of Injury: incised Allergies and Home Medications Allergies Coded Allergies: aspirin (Verified Allergy, Unknown, 03/07/19) morphine (Verified Allergy, Unknown, 03/07/19) Home Medications Cephalexin 500 Mg Tablet, 500 MG PO QID Prescribed by: LAMIN ADLER on 02/27/192321 Cyclobenzaprine HCl 10 Mg Tablet, 10 MG PO HS PRN for SPASMS Prescribed by: LAMIN ADLER on 02/27/19 2322 Patient Home Medication List Home Medication List Reviewed: Yes Review of Systems Constitutional: no symptoms reported EENTM: no symptoms reported Respiratory: no symptoms reported Cardiovascular: no symptoms reported Genitourinary: no symptoms reported Musculoskeletal: see HPI Past [place]-Rgwrmr Hx Past Med/Social Hx: Reviewed Nursing Past Med/Soc Hx Patient Social History Alcohol Use: Denies Use Recreational Drug Use: No Type Used: Cigarettes 2nd Hand Smoke Exposure: Yes Recent Foreign Travel: No Contact w/Someone Who Travel: No Recent Hopitalizations: No Physical Abuse: No Sexual Abuse: No Mistreated: No Fear: No Immunizations Up To Date Date of Influenza Vaccine: Jul 16, 2018 Seasonal Allergies Seasonal Allergies: No Past Medical History Surgeries: Yes Defibrillator, Pacemaker Respiratory: No Cardiac: Yes (pacemaker) Hypertension Neurological: No Genitourinary: No Gastrointestinal: No Musculoskeletal: Yes (ruptured disks) Endocrine: No HEENT: No Cancer: No Psychosocial: No Integumentary: No Blood Disorders: No Physical Exam Vital Signs Vital Signs - First Documented 03/07/19 19:14 Temp 97.4 Pulse 82 Resp 18 B/P (MAP) 206/112 (143) O2 Delivery Room Air Capillary Refill : Height, Weight, BMI Height: 5'8.00" Weight: 200lbs. 0oz. [id number]; BMI Method:Stated General Appearance: WD/WN, no apparent distress HEENT: PERRL/EOMI Neck: supple Cardiovascular: normal peripheral pulses, regular rate, rhythm Respiratory: lungs clear, normal breath sounds Gastrointestinal: non tender, soft, other (right inguinal region, puncture wound consistent with heart catheterization insertion site, no hematoma, mild bruising only and appropriate postsurgical tenderness, no rash or active bleeding.) Back: no vertebral tenderness Neurologic/Tendon: normal sensation Neurologic/Psychiatric: envelope cutter II-XII nml as tested, no motor/sensory deficits, oriented x 3 Progress/Results/Core Measures Results/Orders My Orders Orders - ARISTEO COYNE DO Urinalysis (03/07/19 19:01) Ketorolac Injection (Toradol Injection) (03/07/19 19:15) Clonidine Tablet (Catapres Tablet) (03/07/19 19:15) Clonidine Tablet (Catapres Tablet) (03/07/19 19:17) Vital Signs/I&O 03/07/19 19:14 Temp 97.4 Pulse 82 Resp 18 B/P (MAP) 206/112 (143) O2 Delivery Room Air Departure Communication (Admissions) Right groin pain overlying catheter insertion site status post heart catheterization 2 days ago. Low index of suspicion of pseudoaneurysm on physical exam. Blood pressure and pain addressed. Recommend follow-up with PCP and center mgr as scheduled for reevaluation and further management of blood pressure. Impression Primary Impression: Right inguinal pain Disposition: HOME, SELF-CARE Condition: Improved Departure-Patient Inst. Decision time for Depature: 19:22 Referrals: RICHARD HERMAN MD (PCP) Primary Care Physician Patient Instructions: Contusion (DC) Add. Discharge Instructions: Please follow-up with your primary care physician and center mgr for re- evaluation of groin pain and for further management of blood pressure. In the meantime, conitnue home pain medications and take Tylenol and ibuprofen as needed for additional relief. All discharge instructions reviewed with patient and/or family. Voiced understanding. ARISTEO COYNE DO March 07, 2019 19:22
--- NOTE | 2019-03-07 19:47 | NUR ---
pt requesting to be discharged, spoke with Dr Langston, he reccomends pt wait for ua, pt informed but still wants to go home. Dr Langston notified.
[2019-03-07 19:50] LABS: BILIRUBIN,URINE NEGATIVE (NEGATIVE); CLARITY,URINE CLEAR; COLOR,URINE YELLOW; GLUCOSE, URINE (UA) NEGATIVE (NEGATIVE); KETONES,URINE NEGATIVE (NEGATIVE); LEUKOCYTE ESTERASE ,URINE TRACE (NEGATIVE); NITRITE,URINE NEGATIVE (NEGATIVE); PROTEIN,URINE NEGATIVE (NEGATIVE)
[2019-03-07 19:51] LABS: BACTERIA,URINE FEW /HPF; WBC,URINE 0-2 /HPF
[2019-03-07 20:00] VITALS: BP 183/110
--- OUTSIDE RECORDS SUMMARY | 2019-03-07 23:38 | XMS REPORT | Continuity of Care Document ---
[...] Status Pt. Type Provider Facility Loc./Unit Complaint [id number] 01/22/2019 13:30:00 01/22/2019 23:59:59 [facility] Outpatient RICHARD HERMAN [facility] [id number] 01/08/2019 11:40:00 Document Registration
== END 2019-03-07 20:00 | disposition home or self-care (01) ==
LOC: EDUNIT# 18:39 → ER FS 18:40
DX: R10.31 Right lower quadrant pain (principal); I10 Essential (primary) hypertension; I25.10 Atherosclerotic heart disease of native coronary artery without angina pectoris; Z77.22 Contact with and (suspected) exposure to environmental tobacco smoke (acute) (chronic); Z95.9 Presence of cardiac and vascular implant and graft, unspecified; Z95.810 Presence of automatic (implantable) cardiac defibrillator; Z88.6 Allergy status to analgesic agent; Z88.5 Allergy status to narcotic agent
CPT/HCPCS: 81000; 96372; 99284

== ENCOUNTER 2019-04-21 16:09 | Emergency (ER) | payer BC ==
[~2019-04-21] VITALS: Ht 170.2 cm; Wt 90.7 kg
--- OUTSIDE RECORDS SUMMARY | 2019-04-21 16:13 | XMS REPORT | Continuity of Care Document ---
Author Organization Unknown Address Unknown Allergies Active Description Code Type Severity Reaction Onset Reported/Identified Relationship to Patient Clinical Status Yes aspirin [id number] Drug Allergy Unknown N/A 03/07/2019 Yes morphine [id number] Drug Allergy Unknown N/A 03/07/2019 Medications There is no data. Problems Date Dx Coded Attending Type Code Diagnosis Diagnosed By 01/12/2019 CHARLOTTE GUTHRIE DO Ot I10 ESSENTIAL (PRIMARY) HYPERTENSION 01/12/2019 CHARLOTTE GUTHREI DO T Ot R07.9 CHEST PAIN, UNSPECIFIED 01/12/2019 CHARLOTTE GUTHRIE DO T Ot Z88.5 ALLERGY STATUS TO NARCOTIC AGENT STATUS 01/12/2019 CHARLOTTE GUTHRIE DO T Ot Z88.6 ALLERGY STATUS TO ANALGESIC AGENT STATUS 01/12/2019 JERRI TALBERT [place] T Ot Z95.0 PRESENCE OF CARDIAC PACEMAKER 01/17/2019 CHARLTOTE GUTHRIE DO T Ot I10 ESSENTIAL (PRIMARY) HYPERTENSION 01/17/2019 CHARLOTTE GUTHRIE DO Ot R07.9 CHEST PAIN, UNSPECIFIED 01/17/2019 CHARLOTTE GUTHRIE DO T Ot Z88.5 ALLERGY STATUS TO NARCOTIC AGENT STATUS 01/17/2019 CHARLOTTE GUTHRIE DO T Ot Z88.6 ALLERGY STATUS TO ANALGESIC AGENT STATUS 01/17/2019 CHARLOTTE GUTHRIE DO T Ot Z95.0 PRESENCE OF CARDIAC PACEMAKER 02/27/2019 LAMIN ADLER MD, Ot F17.210 NICOTINE DEPENDENCE, CIGARETTES, UNCOMPL 02/27/2019 LAMIN ADLER MD, Ot H66.41 SUPPURATIVE OTITIS MEDIA, UNSPECIFIED, R 02/27/2019 LAMIN ADLER MD, Ot I10 ESSENTIAL (PRIMARY) HYPERTENSION 02/27/2019 LAMIN ADLER MD, Ot J32.0 CHRONIC MAXILLARY SINUSITIS 02/27/2019 LAMIN ADLER MD, Ot K22.8 OTHER SPECIFIED DISEASES OF ESOPHAGUS 02/27/2019 LAMIN ADLER MD, Ot R05 COUGH 02/27/2019 ENYART MD, LAMIN E Ot Z88.5 ALLERGY STATUS TO NARCOTIC AGENT STATUS 02/27/2019 LAMIN ADLER MD Ot Z88.6 ALLERGY STATUS TO ANALGESIC AGENT STATUS 02/27/2019 LAMIN ADLER MD Ot Z95.810 PRESENCE OF AUTOMATIC (IMPLANTABLE) CARD 03/01/2019 LAMIN ADLER MD Ot F17.210 NICOTINE DEPENDENCE, CIGARETTES, UNCOMPL 03/01/2019 LAMIN ADLER MD Ot H66.41 SUPPURATIVE OTITIS MEDIA, UNSPECIFIED, R 03/01/2019 LAMIN ADLER MD Ot I10 ESSENTIAL (PRIMARY) HYPERTENSION 03/01/2019 LAMIN ADLER MD Ot J32.0 CHRONIC MAXILLARY SINUSITIS 03/01/2019 LAMIN ADLER MD Ot K22.8 OTHER SPECIFIED DISEASES OF ESOPHAGUS 03/01/2019 LAMIN ADLER MD Ot R05 COUGH 03/01/2019 LAMIN ADLER MD, Ot Z88.5 ALLERGY STATUS TO NARCOTIC AGENT STATUS 03/01/2019 LAMIN ADLER MD Ot Z88.6 ALLERGY STATUS TO ANALGESIC AGENT STATUS 03/01/2019 LAMIN ADLER MD, Ot Z95.810 PRESENCE OF AUTOMATIC (IMPLANTABLE) CARD 03/05/2019 JERRI TALBERT [place] T Ot I10 ESSENTIAL (PRIMARY) HYPERTENSION 03/05/2019 JERRI TALBERT [place] T Ot I16.0 HYPERTENSIVE URGENCY 03/05/2019 JERRI TALBERT [place] T Ot R07.89 OTHER CHEST PAIN 03/05/2019 JERRI TALBERT [place] T Ot R07.9 CHEST PAIN, UNSPECIFIED 03/05/2019 JERRI TALBERT [place] T Ot T82.198A [facility] COMPL OF OTHER CARDIAC ELECTRONIC D 03/05/2019 JERRI TALBERT [place] T Ot Z77.22 CNTCT W AND EXPSR TO ENVIRON TOBACCO SMO 03/05/2019 CAROLANN GUTHRIE DOED T Ot Z88.5 ALLERGY STATUS TO NARCOTIC AGENT STATUS 03/05/2019 CAROLANN GUTHRIE DOED T Ot Z88.6 ALLERGY STATUS TO ANALGESIC AGENT STATUS 03/05/2019 JERRI TALBERT [place] T Ot Z95.810 PRESENCE OF AUTOMATIC (IMPLANTABLE) CARD 03/06/2019 JERRI TALBERT [place] T Ot I10 ESSENTIAL (PRIMARY) HYPERTENSION 03/06/2019 JERRI TALBERT [place] T Ot I16.0 HYPERTENSIVE URGENCY 03/06/2019 JERRI TALBERT, CHARLOTTE T Ot R07.89 OTHER CHEST PAIN 03/06/2019 JERRI TALBERT, CHARLOTTE T Ot R07.9 CHEST PAIN, UNSPECIFIED 03/06/2019 JERRI TALBERT, CHARLOTTE T Ot T82.198A [facility] COMPL OF OTHER CARDIAC ELECTRONIC D 03/06/2019 JERRI TALBERT [place] T Ot Z77.22 CNTCT W AND EXPSR TO ENVIRON TOBACCO SMO 03/06/2019 JERRI TALBERT, CHARLOTTE T Ot Z88.5 ALLERGY STATUS TO NARCOTIC AGENT STATUS 03/06/2019 JERRI TALBERT, CHARLOTTE T Ot Z88.6 ALLERGY STATUS TO ANALGESIC AGENT STATUS 03/06/2019 JERRI TALBERT, CHARLOTTE T Ot Z95.810 PRESENCE OF AUTOMATIC (IMPLANTABLE) CARD 03/07/2019 DORETHA TALBERT, ARISTEO Ot I10 ESSENTIAL (PRIMARY) HYPERTENSION 03/07/2019 DORETHA TALBERT, ARISTEO Ot I25.10 ATHSCL HEART DISEASE OF [place] CORONARY 03/07/2019 DORETHA TALBERT, ARISTEO Ot R10.31 RIGHT LOWER QUADRANT PAIN 03/07/2019 DORETHA TALBERT ARISTEO Ot Z77.22 CNTCT W AND EXPSR TO ENVIRON TOBACCO SMO 03/07/2019 DORETHA TALBERT ARISTEO Ot Z88.5 ALLERGY STATUS TO NARCOTIC AGENT STATUS 03/07/2019 DORETHA TALBERT, ARISTEO Ot Z88.6 ALLERGY STATUS TO ANALGESIC AGENT STATUS 03/07/2019 COYNE , ARISTEO Ot Z95.810 PRESENCE OF AUTOMATIC (IMPLANTABLE) CARD 03/07/2019 DORETHA TALBERT, ARISTEO Ot Z95.9 PRESENCE OF CARDIAC AND VASCULAR IMPLANT 03/10/2019 JERRI TALBERT, CHARLOTTE T Ot I10 ESSENTIAL (PRIMARY) HYPERTENSION 03/10/2019 EJRRI TALBERT, CHARLOTTE T Ot I16.0 HYPERTENSIVE URGENCY 03/10/2019 JERRI TALBERT, CHARLOTTE T Ot R07.89 OTHER CHEST PAIN 03/10/2019 JERRI TALBERT, CHARLOTTE T Ot R07.9 CHEST PAIN, UNSPECIFIED 03/10/2019 JERRI TALBERT [place] T Ot T82.198A [facility] COMPL OF OTHER CARDIAC ELECTRONIC D 03/10/2019 JERRI TALBERT [place] T Ot Z77.22 CNTCT W AND EXPSR TO ENVIRON TOBACCO SMO 03/10/2019 JERRI TALBERT, CHARLOTTE T Ot Z88.5 ALLERGY STATUS TO NARCOTIC AGENT STATUS 03/10/2019 JERRI TLABERT, CHARLOTTE T Ot Z88.6 ALLERGY STATUS TO ANALGESIC AGENT STATUS 03/10/2019 CHARLOTTE GUTHRIE DO Ot Z95.810 PRESENCE OF AUTOMATIC (IMPLANTABLE) CARD 03/12/2019 ARISTEO COYNE DO Ot I10 ESSENTIAL (PRIMARY) HYPERTENSION 03/12/2019 DORETHA TALBERT ARISTEO Ot I25.10 ATHSCL HEART DISEASE OF [place] CORONARY 03/12/2019 DORETHA TALBERT ARISTEO Ot R10.31 RIGHT LOWER QUADRANT PAIN 03/12/2019 DORETHA TALBERT ARISTEO Ot Z77.22 CNTCT W AND EXPSR TO ENVIRON TOBACCO SMO 03/12/2019 DORETHA TALBERT ARISTEO Ot Z88.5 ALLERGY STATUS TO NARCOTIC AGENT STATUS 03/12/2019 DORETHA TALBERT ARISTEO Ot Z88.6 ALLERGY STATUS TO ANALGESIC AGENT STATUS 03/12/2019 ARISTEO COYNE DO Ot Z95.810 PRESENCE OF AUTOMATIC (IMPLANTABLE) CARD 03/12/2019 DORETHA TALBERT ARISTEO Ot Z95.9 PRESENCE OF CARDIAC AND VASCULAR IMPLANT Procedures There is no data. Results Test [...] NEGATIVE ng/mL <25 medMATCH Phencyclidine CONSISTENT NRG Automated blood complete blood count (hemogram) panel - 01/10/19 16:00 Blood leukocytes automated count (number/volume) 8.5 10*3/uL 4.3-11.0 Blood erythrocytes automated count (number/volume) 5.06 10*6/uL 4.35-5.85 Venous blood hemoglobin measurement (mass/volume) 15.8 g/dL 11.5-16.0 Blood hematocrit (volume fraction) 48 % 35-52 Automated erythrocyte mean corpuscular volume 94 [foz_us] 80-99 Automated erythrocyte mean corpuscular hemoglobin (mass per erythrocyte) 31 pg 25-34 Automated erythrocyte mean corpuscular hemoglobin concentration measurement (mass/volume) 33 g/dL 32-36 Automated erythrocyte distribution width ratio 14.1 % 10.0- 14.5 Automated blood platelet count (count/volume) 223 10*3/uL 130-400 Automated blood platelet mean volume measurement 10.4 [foz_us] 7.4-10.4 PT panel in platelet poor plasma by coagulation assay - 01/10/19 16:00 Prothrombin time (PT) in platelet poor plasma by coagulation assay 12.4 s 12.2-14.7 INR in platelet poor plasma or blood by coagulation assay 0.9 0.8-1.4 Activated partial thromboplastin time (aPTT) in platelet poor plasma bycoagulation assay - 01/10/19 16:00 Activated partial thromboplastin time (aPTT) in platelet poor plasma bycoagulation assay 27 s 24-35 Comprehensive metabolic panel - 01/10/19 16:00 Serum or plasma sodium measurement (moles/volume) 138 mmol/L 135-145 Serum or plasma potassium measurement (moles/volume) 4.1 mmol/L 3.6-5.0 Serum or plasma chloride measurement (moles/volume) 98 mmol/L 98-107 Carbon dioxide 24 mmol/L 21-32 Serum or plasma anion gap determination (moles/volume) 16 mmol/L 5-14 Serum or plasma urea nitrogen measurement (mass/volume) 14 mg/dL 7-18 Serum or plasma creatinine measurement (mass/volume) 0.68 mg/dL 0.60-1.30 Serum or plasma urea nitrogen/creatinine mass ratio 21 NRG Serum or plasma creatinine measurement with calculation of estimated glomerular filtration rate > NRG Serum or plasma glucose measurement (mass/volume) 99 mg/dL 70-105 Serum or plasma calcium measurement (mass/volume) 9.3 mg/dL 8.5-10.1 Serum or plasma total bilirubin measurement (mass/volume) 0.3 mg/dL 0.1-1.0 Serum or plasma alkaline phosphatase measurement (enzymatic activity/volume) 114 U/L 40-136 Serum or plasma aspartate aminotransferase measurement (enzymatic activity/volume) 11 U/L 5-34 Serum or plasma alanine aminotransferase measurement (enzymatic activity/volume) 12 U/L 0-55 Serum or plasma protein measurement (mass/volume) 8.0 g/dL 6.4-8.2 Serum or plasma albumin measurement (mass/volume) 4.7 g/dL 3.2-4.5 Magnesium - 01/10/19 16:00 Magnesium 1.9 mg/dL 1.8-2.4 TROPONIN T - 01/10/19 16:00 TROPONIN T < 6 <=10 TROPONIN T - 01/10/19 18:54 TROPONIN T 6 % <=10 Complete blood count (CBC) with automated white blood cell (WBC) differential - 02/27/19 20:23 Blood leukocytes automated count (number/volume) 9.9 10*3/uL 4.3-11.0 Blood erythrocytes automated count (number/volume) 4.53 10*6/uL 4.35-5.85 Venous blood hemoglobin measurement (mass/volume) 14.4 g/dL 11.5-16.0 Blood hematocrit (volume fraction) 43 % 35-52 Automated erythrocyte mean corpuscular volume 94 [foz_us] 80-99 Automated erythrocyte mean corpuscular hemoglobin (mass per erythrocyte) 32 pg 25-34 Automated erythrocyte mean corpuscular hemoglobin concentration measurement (mass/volume) 34 g/dL 32-36 Automated erythrocyte distribution width ratio 13.5 % 10.0- 14.5 Automated blood platelet count (count/volume) 277 10*3/uL 130-400 Automated blood platelet mean volume measurement 9.8 [foz_us] 7.4-10.4 Automated blood neutrophils/100 leukocytes 57 % 42-75 Automated blood lymphocytes/100 leukocytes 34 % 12-44 Blood monocytes/100 leukocytes 7 % 0-12 Automated blood eosinophils/100 leukocytes 2 % 0-10 Automated blood basophils/100 leukocytes 0 % 0-10 Blood neutrophils automated count (number/volume) 5.7 10*3 1.8-7.8 Blood lymphocytes automated count (number/volume) 3.4 10*3 1.0-4.0 Blood monocytes automated count (number/volume) 0.7 10*3 0.0- 1.0 Automated eosinophil count 0.2 10*3/uL 0.0-0.3 Automated blood basophil count (count/volume) 0.0 10*3/uL 0.0-0.1 Comprehensive metabolic panel - 02/27/19 20:23 Serum or plasma sodium measurement (moles/volume) 142 mmol/L 135-145 Serum or plasma potassium measurement (moles/volume) 3.4 mmol/L 3.6-5.0 Serum or plasma chloride measurement (moles/volume) 102 mmol/L 98-107 Carbon dioxide 21 mmol/L 21-32 Serum or plasma anion gap determination (moles/volume) 19 mmol/L 5-14 Serum or plasma urea nitrogen measurement (mass/volume) 14 mg/dL 7-18 Serum or plasma creatinine measurement (mass/volume) 0.69 mg/dL 0.60-1.30 Serum or plasma urea nitrogen/creatinine mass ratio 20 NRG Serum or plasma creatinine measurement with calculation of estimated glomerular filtration rate > NRG Serum or plasma glucose measurement (mass/volume) 105 mg/dL 70-105 Serum or plasma calcium measurement (mass/volume) 9.1 mg/dL 8.5-10.1 Serum or plasma total bilirubin measurement (mass/volume) 0.2 mg/dL 0.1-1.0 Serum or plasma alkaline phosphatase measurement (enzymatic activity/volume) 130 U/L 40-136 Serum or plasma aspartate aminotransferase measurement (enzymatic activity/volume) 18 U/L 5-34 Serum or plasma alanine aminotransferase measurement (enzymatic activity/volume) 21 U/L 0-55 Serum or plasma protein measurement (mass/volume) 7.6 g/dL 6.4-8.2 Serum or plasma albumin measurement (mass/volume) 4.4 g/dL 3.2-4.5 CALCIUM CORRECTED 8.8 mg/dL 8.5-10.1 Sputum Gram stain - 02/27/19 20:23 Sputum Gram stain 03-01-19, 0605. NR Bacterial sputum culture - 02/27/19 20:23 FREE TEXT EXTERNAL SUSCEPTIBILITY REPORTED 03/03/19 12:05 NRG QUANTITY OF GROWTH Many [facility] Bacterial sputum culture [id number] NR Complete blood count (CBC) with automated white blood cell (WBC) differential - 03/04/19 22:00 Blood leukocytes automated count (number/volume) 9.1 10*3/uL 4.3-11.0 Blood erythrocytes automated count (number/volume) 4.19 10*6/uL 4.35-5.85 Venous blood hemoglobin measurement (mass/volume) 13.4 g/dL 11.5-16.0 Blood hematocrit (volume fraction) 39 % 35-52 Automated erythrocyte mean corpuscular volume 34 [foz_us] 80-99 Automated erythrocyte mean corpuscular hemoglobin (mass per erythrocyte) 32 pg 25-34 Automated erythrocyte mean corpuscular hemoglobin concentration measurement (mass/volume) 34 g/dL 32-36 Automated erythrocyte distribution width ratio 13.8 % 10.0- 14.5 Automated blood platelet count (count/volume) 261 10*3/uL 130-400 Automated blood platelet mean volume measurement 9.9 [foz_us] 7.4-10.4 Automated blood neutrophils/100 leukocytes 49 % 42-75 Automated blood lymphocytes/100 leukocytes 43 % 12-44 Blood monocytes/100 leukocytes 6 % 0-12 Automated blood eosinophils/100 leukocytes 1 % 0-10 Automated blood basophils/100 leukocytes 1 % 0-10 Blood neutrophils automated count (number/volume) 4.4 10*3 1.8-7.8 Blood lymphocytes automated count (number/volume) 3.9 10*3 1.0-4.0 Blood monocytes automated count (number/volume) 0.5 10*3 0.0- 1.0 Automated eosinophil count 0.1 10*3/uL 0.0-0.3 Automated blood basophil count (count/volume) 0.1 10*3/uL 0.0-0.1 PT panel in platelet poor plasma by coagulation assay - 03/04/19 22:00 Prothrombin time (PT) in platelet poor plasma by coagulation assay 12.0 s 12.2-14.7 INR in platelet poor plasma or blood by coagulation assay 0.9 0.8-1.4 Activated partial thromboplastin time (aPTT) in platelet poor plasma bycoagulation assay - 03/04/19 22:00 Activated partial thromboplastin time (aPTT) in platelet poor plasma bycoagulation assay 28 s 24-35 TROPONIN T - 03/04/19 22:00 TROPONIN T < 6 <=10 PROBNP FS - 03/04/19 22:00 PROBNP FS 398.7 pg/mL <75.0 Comprehensive metabolic panel - 03/04/19 22:00 Serum or plasma sodium measurement (moles/volume) 143 mmol/L 135-145 Serum or plasma potassium measurement (moles/volume) 3.5 mmol/L 3.6-5.0 Serum or plasma chloride measurement (moles/volume) 104 mmol/L 98-107 Carbon dioxide 20 mmol/L 21-32 Serum or plasma anion gap determination (moles/volume) 19 mmol/L 5-14 Serum or plasma urea nitrogen measurement (mass/volume) 11 mg/dL 7-18 Serum or plasma creatinine measurement (mass/volume) 0.59 mg/dL 0.60-1.30 Serum or plasma urea nitrogen/creatinine mass ratio 19 NRG Serum or plasma creatinine measurement with calculation of estimated glomerular filtration rate > NRG Serum or plasma glucose measurement (mass/volume) 118 mg/dL 70-105 Serum or plasma calcium measurement (mass/volume) 8.9 mg/dL 8.5-10.1 Serum or plasma total bilirubin measurement (mass/volume) 0.2 mg/dL 0.1-1.0 Serum or plasma alkaline phosphatase measurement (enzymatic activity/volume) 105 U/L 40-136 Serum or plasma aspartate aminotransferase measurement (enzymatic activity/volume) 11 U/L 5-34 Serum or plasma alanine aminotransferase measurement (enzymatic activity/volume) 11 U/L 0-55 Serum or plasma protein measurement (mass/volume) 6.8 g/dL 6.4-8.2 Serum or plasma albumin measurement (mass/volume) 4.1 g/dL 3.2-4.5 CALCIUM CORRECTED 8.8 mg/dL 8.5-10.1 Magnesium - 03/04/19 22:00 Magnesium 1.8 mg/dL 1.8-2.4 TROPONIN T - 03/05/19 02:05 TROPONIN T < 6 <=10 Complete urinalysis with reflex to culture - 03/07/19 17:39 Urine color determination YELLOW NRG Urine clarity determination CLEAR NRG Urine pH measurement by test strip 6.0 5-9 Specific gravity of urine by test strip 1.020 1.016-1.022 Urine protein assay by test strip, semi-quantitative NEGATIVE NEGATIVE Urine glucose detection by automated test strip NEGATIVE NEGATIVE Erythrocytes detection in urine sediment by light microscopy NEGATIVE NEGATIVE Urine ketones detection by automated test strip NEGATIVE NEGATIVE Urine nitrite detection by test strip NEGATIVE NEGATIVE Urine total bilirubin detection by test strip NEGATIVE NEGATIVE Urine urobilinogen measurement by automated test strip (mass/volume) 1.0 mg/dL NORMAL Urine leukocyte esterase detection by dipstick TRACE NEGATIVE Automated urine sediment erythrocyte count by microscopy (number/high power field) NONE NRG Automated urine sediment leukocyte count by microscopy (number/high power field) [HPF] NRG Bacteria detection in urine sediment by light microscopy FEW NRG Squamous epithelial cells detection in urine sediment by light microscopy 2-5 NRG Crystals detection in urine sediment by light microscopy NONE NRG Casts detection in urine sediment by light microscopy NONE NRG Mucus detection in urine sediment by light microscopy NONE NRG Complete urinalysis with reflex to culture NO NRG Encounters ACCT No. Visit Date/Time Discharge Status Pt. Type Provider Facility Loc./Unit Complaint [id number] 03/08/2019 09:40:00 03/08/2019 23:59:59 [facility] Outpatient RICHARD HER[facility] [id number] 01/08/2019 11:40:00 Document Registration [id number] 03/07/2019 18:40:00 03/07/2019 20:00:00 DIS Emergency ARISTEO COYNE DO [facility] FS PAIN [id number] 03/04/2019 21:34:00 03/05/2019 04:07:00 DIS Emergency CHARLOTTE GUTHRIE DO [facility] FS CHEST PAIN AROUND PACE MAKER [id number] 02/27/2019 19:29:00 02/27/2019 23:32:00 DIS Emergency NAYELY DUNCAN, LAMIN Fox [facility] FS COUGH,DIZZY, CHEST PAIN, NAUSEA, RT EAR PAIN [id number] 01/10/2019 15:48:00 01/10/2019 20:13:00 DIS Outpatient CHARLOTTE GUTHRIE DO [facility] FS CHEST PAIN, RT ARM NUMB [id number] 12/15/2018 13:56:00 12/15/2018 13:56:00 CAN Preaddanya ADLER MD, LAMIN Fox [facility] FS RT/LT HAND NUMBNESS
--- NOTE | 2019-04-21 16:14 | NUR ---
Pt brought to ED 6 ambulatory with reported chest pain complaint. See nursing triage. Pt is very unsure if start of chest pain at 1530 approx was so sudden she jumped/jerked and wondered if she got shocked from defibrillator.
--- NOTE | 2019-04-21 16:18 | NUR ---
EKG done, pt tells Dr she can not have aspirin as it "puts fluid around pacemaker". They told me that.
[2019-04-21 16:41] LABS: HEMATOCRIT 47 % (35-52); HEMOGLOBIN 16.1 G/DL (11.5-16.0); MEAN CORPUSCULAR HEMOGLOBIN 32 PG (25-34); MEAN CORPUSCULAR VOLUME 93 FL (80-99); WHITE BLOOD COUNT 7.8 10^3/uL (4.3-11.0)
[2019-04-21 16:42] LABS: BASOPHILS % (AUTO) 0 % (0-10); EOSINOPHILS # (AUTO) 0.1 10^3/uL (0.0-0.3); EOSINOPHILS % (AUTO) 1 % (0-10); LYMPHOCYTES # (AUTO) 3.2 X 10^3 (1.0-4.0); LYMPHOCYTES % (AUTO) 41 % (12-44); MEAN CORPUSCULAR HGB CONC 34 G/DL (32-36); MEAN PLATELET VOLUME 10.7 FL (7.4-10.4); MONOCYTES # (AUTO) 0.6 X 10^3 (0.0-1.0); MONOCYTES % (AUTO) 7 % (0-12); NEUTROPHILS # (AUTO) 3.9 X 10^3 (1.8-7.8); NEUTROPHILS % (AUTO) 50 % (42-75); PLATELET COUNT 241 10^3/uL (130-400)
[2019-04-21] MEDS ORDERED: NITROGLYCERIN 0.4 MG SL TABS BTL 25'S SL PRN (16:45)
[2019-04-21 16:48] LABS: INR 0.9 (0.8-1.4)
[2019-04-21 16:54] LABS: ALANINE AMINOTRANSFERASE 13 U/L (0-55); ALKALINE PHOSPHATASE 118 U/L (40-136); BILIRUBIN,TOTAL 0.2 MG/DL (0.1-1.0); BUN/CREATININE RATIO 8; CALCIUM 9.9 MG/DL (8.5-10.1); CARBON DIOXIDE 26 MMOL/L (21-32); CHLORIDE 99 MMOL/L (98-107); CREATININE SERUM 0.84 MG/DL (0.60-1.30); GFR ESTIMATED > 60; GLUCOSE 100 MG/DL (70-105); MAGNESIUM 1.7 MG/DL (1.8-2.4); POTASSIUM 3.2 MMOL/L (3.6-5.0); SODIUM 142 MMOL/L (135-145)
[2019-04-21 16:55] LABS: ALBUMIN 4.8 GM/DL (3.2-4.5); TOTAL PROTEIN 8.2 GM/DL (6.4-8.2)
[2019-04-21] MEDS ORDERED: NITROGLYCERIN 2% OINT 1 GM UNIT DOSE PACKET TOP ONE (17:00)
--- NOTE | 2019-04-21 17:00 | NUR ---
NTG #1 SL given
--- NOTE | 2019-04-21 17:05 | NUR ---
Dr Land in room evaluating 1st NTG after 5 min. Pain from "10" to "9". Reports the only thing that makes chest pain improve is paste on chest and pain shot that starts with "D". Dr referenced not knowing what this is. Pt given names of meds and said "Dilaudid".
[2019-04-21] MEDS ORDERED: HYDROmorphone 2 MG/ML VIAL (DILAUDID) IV ONE (17:15)
--- NOTE | 2019-04-21 17:30 | NUR ---
reports he will call [facility] per pt choice to transfer for further work up.
--- NOTE | 2019-04-21 17:38 | Diagnostic Imaging Report ---
INDICATION: Chest pain began at 1530 hours while sitting in a chair, patient woke at 7:00 a.m. today not feeling well. Questionable muscle spasm versus defibrillator going off. COMPARISON STUDY: Chest from 03/04/2019. FINDINGS: Frontal view of the chest demonstrates cardiac defibrillator remaining unchanged in position. Heart size and vascularity are normal. The lungs are clear. There are no pleural effusions. IMPRESSION: There are no acute findings. Dictated by: Dictated on workstation # [id number]
--- NOTE | 2019-04-21 17:40 | NUR ---
reports to family accepted to [facility].
--- NOTE | 2019-04-21 17:41 | ED Chest Pain ---
General Chief Complaint: Chest Pain Stated Complaint: CHEST PAIN Nursing Triage Note: Pt presents to ED ambulatory reporting that chest pain began at 1530 while sitting in chair. Pt reports I awoke at 0700 just not feeling well today. Pt states while sitting in chair she felt a jerk and not sure if muscle spasm or a defibrillation. Pt is very anxious. Nursing Sepsis Screen: No Definite Risk Source: patient, family Exam Limitations: no limitations History of Present Illness Date Seen by Provider: Apr 21, 2019 Time Seen by Provider: 16:30 Initial Comments This 48-year-old white female presents with chest pain that began 330 this afternoon while sitting in a chair. Patient states that she has not felt well since she awoke at 7 o'clock this morning. The patient's felt a jerk while she was sitting in a chair and believes that her defibrillator gave her a shock. The patient has known coronary artery disease and has a pacemaker defibrillator. The patient states that her chest pain is been a 10 out of 10 since its onset this afternoon. The patient has had no fever or chills, productive cough, shortness of breath, or palpitations. 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 Allergies and Home Medications Allergies Coded Allergies: aspirin (Verified Allergy, Unknown, 03/07/19) morphine (Verified Allergy, Unknown, 04/21/19) Patient states is not allergic to Morphine Home Medications Cephalexin 500 Mg Tablet, 500 MG PO QID Prescribed by: LAMIN ADLER on 02/27/19 2322 Cyclobenzaprine HCl 10 Mg Tablet, 10 MG PO HS PRN for SPASMS Prescribed by: LAMIN ADLER on 02/27/19 2322 Patient Home Medication List Home Medication List Reviewed: Yes Review of Systems Review of Systems Constitutional: see HPI EENTM: No Symptoms Reported Respiratory: Denies Cough, Denies SOA at Rest Cardiovascular: See HPI, Chest Pain Gastrointestinal: Nausea Genitourinary: No Symptoms Reported Musculoskeletal: no symptoms reported Skin: no symptoms reported Psychiatric/Neurological: No Symptoms Reported Endocrine: No Symptoms Reported Hematologic/Lymphatic: No Symptoms Reported Past Rkadali-Ddsybg-Uegfgl Hx Past Med/Social Hx: Reviewed Nursing Past Med/Soc Hx Patient Social History Alcohol Use: Denies Use Recreational Drug Use: No Smoking Status: Current Everyday Smoker Type Used: Cigarettes 2nd Hand Smoke Exposure: Yes Recent Foreign Travel: No Contact w/Someone Who Travel: No Recent Infectious Disease Expo: No Recent Hopitalizations: No Physical Abuse: No Sexual Abuse: No Mistreated: No Fear: No Immunizations Up To Date Tetanus Booster (TDap): Unknown Date of Influenza Vaccine: Jul 16, 2018 Seasonal Allergies Seasonal Allergies: No Past Medical History Surgeries: Yes Defibrillator, Pacemaker Respiratory: No Cardiac: Yes (pacemaker/defib) Hypertension Neurological: No Genitourinary: No Gastrointestinal: No Musculoskeletal: Yes (ruptured disks) Endocrine: No HEENT: No Cancer: No Psychosocial: No Integumentary: No Blood Disorders: No Physical Exam Vital Signs Vital Signs - First Documented Capillary Refill : Less Than 3 Seconds Height, Weight, BMI Height: 5'7.00" Weight: 200lbs. 0oz. 90.249346wy; BMI Method:Stated General Appearance: WD/WN, Mild Distress Neck: Normal Inspection Respiratory: Lungs Clear Cardiovascular: Regular Rate, Rhythm, No Murmur Gastrointestinal: Normal Bowel Sounds Extremity: Normal Inspection, Normal Range of Motion Neurologic/Psychiatric: Oriented x3, No Motor/Sensory Deficits, Normal Mood/Affect Skin: Normal Color, Warm/Dry Progress/Results/Core Measures Results/Orders Lab Results Laboratory Tests Test 04/21/19 16:20 Range/Units White Blood Count 7.8 4.3-11.0 10^3/uL Red Blood Count 5.09 4.35-5.85 10^6/uL Hemoglobin 16.1 H 11.5-16.0 G/DL Hematocrit 47 35-52 % Mean Corpuscular Volume 93 80-99 FL Mean Corpuscular Hemoglobin 32 25-34 PG Mean Corpuscular Hemoglobin Concent 34 32-36 G/DL Red Cell Distribution Width 14.0 10.0-14.5 % Platelet Count 241 130-400 10^3/uL Mean Platelet Volume 10.7 H 7.4-10.4 FL Neutrophils (%) (Auto) 50 42-75 % Lymphocytes (%) (Auto) 41 12-44 % Monocytes (%) (Auto) 7 0-12 % Eosinophils (%) (Auto) 1 0-10 % Basophils (%) (Auto) 0 0-10 % Neutrophils # (Auto) 3.9 1.8-7.8 X 10^3 Lymphocytes # (Auto) 3.2 1.0-4.0 X 10^3 Monocytes # (Auto) 0.6 0.0-1.0 X 10^3 Eosinophils # (Auto) 0.1 0.0-0.3 10^3/uL Basophils # (Auto) 0.0 0.0-0.1 10^3/uL Prothrombin Time 13.0 12.2-14.7 SEC INR Comment 0.9 0.8-1.4 Activated Partial Thromboplast Time 28 24-35 SEC Sodium Level 142 135-145 MMOL/L Potassium Level 3.2 L 3.6-5.0 MMOL/L Chloride Level 99 98-107 MMOL/L Carbon Dioxide Level 26 21-32 MMOL/L Anion Gap 17 H 5-14 MMOL/L Blood Urea Nitrogen 7 7-18 MG/DL Creatinine 0.84 0.60-1.30 MG/DL Estimat Glomerular Filtration Rate > 60 BUN/Creatinine Ratio 8 Glucose Level 100 70-105 MG/DL Calcium Level 9.9 8.5-10.1 MG/DL Corrected Calcium 8.5-10.1 MG/DL Magnesium Level 1.7 L 1.8-2.4 MG/DL Total Bilirubin 0.2 0.1-1.0 MG/DL Aspartate Amino Transf (AST/SGOT) 10 5-34 U/L Alanine Aminotransferase (ALT/SGPT) 13 0-55 U/L Alkaline Phosphatase 118 40-136 U/L Myoglobin 21.0 10.0-92.0 NG/ML Troponin I < 0.30 <0.30 NG/ML Total Protein 8.2 6.4-8.2 GM/DL Albumin 4.8 H 3.2-4.5 GM/DL My Orders Orders - NEHA ROSE MD Ekg Tracing (04/21/19 16:18) Continuous Ekg Monitoring (04/21/19 16:26) Ed Iv/Invasive Line Start (04/21/19 16:26) Cbc With Automated Diff (04/21/19 16:31) Magnesium (04/21/19 16:31) Chest 1 View Ap/Pa Only (04/21/19 16:31) Comprehensive Metabolic Panel (04/21/19 16:31) Myoglobin Serum (04/21/19 16:31) Protime With Inr (04/21/19 16:31) Partial Thromboplastin Time (04/21/19 16:31) O2 (04/21/19 16:31) Monitor-Rhythm Ecg Trace Only (04/21/19 16:31) Lipid Panel (04/22/19 06:00) Nitroglycerin 0.4 Mg Btl 25's (Nitrostat (04/21/19 16:45) Ed Iv/Invasive Line Start (04/21/19 16:31) Troponin I (04/21/19 16:31) Nitroglycerin Ointment (Nitrobid Ointme (04/21/19 17:00) Hydromorphone Injection (Dilaudid Inject (04/21/19 17:15) Medications Given in ED Current Medications Medications Dose Ordered Sig/Norma Route Start Time Stop Time Status Last Admin Dose Admin Hydromorphone HCl 0.5 mg ONCE ONCE IV 04/21/19 17:15 04/21/19 17:16 DC 04/21/19 17:25 0.5 MG Nitroglycerin 0.4 mg UD PRN SL 04/21/19 16:45 04/21/19 17:00 0.4 MG Nitroglycerin 1 inch ONCE ONCE TOP 04/21/19 17:00 04/21/19 17:01 DC 04/21/19 17:09 1 INCH Vital Signs/I&O 04/21/19 04/21/19 16:14 16:14 Temp 98.8 Pulse 85 Resp 22 B/P (MAP) 180/135 (150) Pulse Ox 98 O2 Delivery Room Air Room Air Blood Pressure Mean: 150 Progress Progress Note : Time: 17:31 Progress Note The patient's chest pain was 10 out of 10. I gave her nitroglycerin sublingually with mild improvement in her pain (9 out of 10). An inch of Nitropaste was applied to the chest wall. Patient states that Dilaudid is the medication choice for chest pain. I gave her 0.5 mg IV. I discussed treatment options with the patient after her workup demonstrated a sinus rhythm and normal troponin. Patient and elected to be transferred to [place] for further definitive care with Dr. Rodriguez. Departure Impression Primary Impression: Chest pain Qualified Codes: R07.9 - Chest pain, unspecified Disposition: 02 XFER SHT-TRM HOSP Condition: Improved Transfer Time Spoke to Accepting Phy: 17:[address] Fox in ED at [facility]. Transfer Time: 17:45 Transfer Facility: [facility] Method of Transfer: EMS Departure-Patient Inst. Referrals: RICHARD HERMAN MD (PCP/Family) Primary Care Physician NEHA ROSE MD Apr 21, 2019 17:41
--- NOTE | 2019-04-21 17:45 | NUR ---
Transfer form signed, await bed assignment
--- NOTE | 2019-04-21 18:30 | NUR ---
Call to transfer center [facility] at [facility] to find they do not know about awaiting bed assignment. Dr Land called at the same time and spoke with Vpiul RN stating he has not passed on the plan for this patient was to send ER to ER.
--- NOTE | 2019-04-21 18:40 | NUR ---
Finished report with Claudia DAVIS in [place] ER. Staff unaware of patient coming from their provider acceptance but will be awaiting arrival. [facility] is dispatched to ER at this time.
[2019-04-21] MEDS ORDERED: fentaNYL INJECTION 100 MCG/2 ML AMP ONE (18:51)
--- NOTE | 2019-04-21 18:56 | NUR ---
Fentanyl 50 mcg SIVP for c/o chest pain per verbal order of Dr Lange. Pt has not been pain free thru entire ED stay. Pt continues to laugh and visit with visitors.
[2019-04-21] MEDS ORDERED: fentaNYL INJECTION 100 MCG/2 ML AMP IVP ONE (19:00)
--- NOTE | 2019-04-21 19:00 | NUR ---
[facility] arriving, report being given. Pt pain reported back down to "9"/10 while visiting with family and laughing.
[2019-04-21 19:15] VITALS: BP 166/105
--- NOTE | 2019-04-21 19:15 | NUR ---
Pt in care of [facility] in route at this time to [facility]. Remains anxious and hypertensive. Dr Land has been aware. Dr Lange providing pt with Nitropaste in place and pain shot given as pt requesting. Pt has been reporting she swears "I am not allergic to Morphine and they have been using it on me before." RN is unable to unverify a verified allergy.
== END 2019-04-21 19:15 | disposition short-term general hospital (02) ==
LOC: EDUNIT# 16:09 → ER FS 16:10
DX: R07.9 Chest pain, unspecified (principal); I25.10 Atherosclerotic heart disease of native coronary artery without angina pectoris; F17.210 Nicotine dependence, cigarettes, uncomplicated; Z95.810 Presence of automatic (implantable) cardiac defibrillator; Z88.6 Allergy status to analgesic agent; Z88.5 Allergy status to narcotic agent
CPT/HCPCS: 36415; 71045; 80053; 83735; 83874; 84484; 85025; 85610; 85730; 93005; 93041; 96374; 96375

== ENCOUNTER 2019-07-16 09:33 | Emergency (ER) | payer BC ==
[~2019-07-16] VITALS: Ht 170.1 cm; Wt 90.7 kg
[2019-07-16] MEDS ORDERED: HYDROcodone/APAP 10 MG/325 MG (LORTAB) TAB PO ONE (10:00)
[2019-07-16] MEDS ORDERED: LABETALOL HCL 20 MG/4 ML VIAL IV ONE ×2 (10:00→10:45)
[2019-07-16 10:02] LABS: WHITE BLOOD COUNT 7.2 10^3/uL (4.3-11.0)
[2019-07-16 10:03] LABS: HEMOGLOBIN 15.6 G/DL (11.5-16.0); MEAN PLATELET VOLUME 10.3 FL (7.4-10.4); RED CELL DISTRIBUTION WIDTH 13.1 % (10.0-14.5)
[2019-07-16 10:23] LABS: POTASSIUM 3.3 MMOL/L (3.6-5.0); SODIUM 139 MMOL/L (135-145)
[2019-07-16 10:24] LABS: ALANINE AMINOTRANSFERASE 10 U/L (0-55); ALBUMIN 4.5 GM/DL (3.2-4.5); ALKALINE PHOSPHATASE 116 U/L (40-136); BILIRUBIN,TOTAL 0.2 MG/DL (0.1-1.0); BUN/CREATININE RATIO 16; CALCIUM 9.1 MG/DL (8.5-10.1); CARBON DIOXIDE 26 MMOL/L (21-32); CHLORIDE 102 MMOL/L (98-107); CREATININE SERUM 0.62 MG/DL (0.60-1.30); GFR ESTIMATED > 60; GLUCOSE 102 MG/DL (70-105); TOTAL PROTEIN 7.5 GM/DL (6.4-8.2)
--- NOTE | 2019-07-16 10:31 | Diagnostic Imaging Report ---
INDICATION: Shortness of breath, chest pain, cardiac pacemaker COMPARISON: 04/21/2019 FINDINGS: Single view of the chest demonstrates clear lungs bilaterally. The heart size is normal. There is no pneumothorax, effusion or focal infiltrate. Pacemaker stable. Osseous structures are age-appropriate. IMPRESSION: Negative chest Dictated by: Dictated on workstation # [id number]
[2019-07-16] MEDS ORDERED: LORazepam INJ 2 MG/ML (ATIVAN) VIAL IVP ONE (10:45)
--- NOTE | 2019-07-16 12:23 | ED Chest Pain ---
General Chief Complaint: Chest Pain Stated Complaint: HIGH BP Nursing Triage Note: Patient c/o high blood pressure, chest heaviness, shortness of breathe, dizziness, and headache. States her blood pressure has been 200s/100s and she just isn't feeling well. She also states that she is having pain in her chest and c/o heaviness starting around 1 hour ago. Nursing Sepsis Screen: No Definite Risk Source: patient Exam Limitations: no limitations History of Present Illness Date Seen by Provider: Jul 16, 2019 Time Seen by Provider: 11:00 Initial Comments Patient is a 49-year-old female with history of hypertension who presents from her pain management physician with reported elevated blood pressure. Patient states she has not taken her blood pressure medication since last evening and is scheduled to takes her blood pressure in the afternoon and evening. Patient states she has also been out of her pain medication for the past 2 days and was at her painter touch up for routine medication refill. Patient was referred to her PCP who instructed the patient to go to the emergency department. Upon arrival, the patient reports substernal chest pain described as dull. Reports feeling anxious. Denies dizziness lightheadedness palpitations, shortness breath nausea vomiting and sweats. On ED arrival, the patient's blood pressures noted to be 200s over 100s. No other acute symptoms or complaints. Timing/Duration: 1 hour Severity/Quality: mild Location: substernal, central Radiation: no radiation Activities at Onset: none Prior CP/Workup: non-cardiac Allergies and Home Medications Allergies Coded Allergies: aspirin (Verified Allergy, Unknown, 03/07/19) morphine (Verified Allergy, Unknown, 04/21/19) Patient states is not allergic to Morphine Home Medications Cephalexin 500 Mg Tablet, 500 MG PO QID Prescribed by: LAMIN Fox ENYART on 02/27/192321 Cyclobenzaprine HCl 10 Mg Tablet, 10 MG PO HS PRN for SPASMS Prescribed by: LAMIN Fox ENYART on 02/27/192321 Patient Home Medication List Home Medication List Reviewed: Yes Review of Systems Review of Systems Constitutional: no symptoms reported EENTM: No Symptoms Reported Respiratory: See HPI Cardiovascular: Chest Pain Gastrointestinal: No Symptoms Reported Genitourinary: No Symptoms Reported Musculoskeletal: no symptoms reported Skin: no symptoms reported Psychiatric/Neurological: No Symptoms Reported Endocrine: No Symptoms Reported Hematologic/Lymphatic: No Symptoms Reported Past Baxgooo-Jdcjur-Uldemx Hx Past Med/Social Hx: Reviewed Nursing Past Med/Soc Hx Patient Social History Alcohol Use: Denies Use Recreational Drug Use: No Type Used: Cigarettes 2nd Hand Smoke Exposure: Yes Recent Foreign Travel: No Contact w/Someone Who Travel: No Recent Infectious Disease Expo: No Recent Hopitalizations: No Physical Abuse: No Sexual Abuse: No Mistreated: No Fear: No Immunizations Up To Date Tetanus Booster (TDap): Unknown Date of Influenza Vaccine: Jul 16, 2018 Seasonal Allergies Seasonal Allergies: No Past Medical History Surgeries: Yes Defibrillator, Gallbladder, Hysterectomy, Pacemaker, 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 Respiratory: No Cardiac: Yes (pacemaker/defib) Heart Attack, Hypertension Neurological: No 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 0oz. 90.807175lu; 31.00 BMI Method:Stated General Appearance: No Apparent Distress, Anxious HEENT: PERRL/EOMI, Normal ENT Inspection, Pharynx Normal Neck: Full Range of Motion, Normal Inspection, Supple Respiratory: Lungs Clear Cardiovascular: Regular Rate, Rhythm, No Edema Gastrointestinal: Soft Neurologic/Psychiatric: Alert, Oriented x3 Focused Exam Sepsis Stage: Ruled Out Progress/Results/Core Measures Results/Orders Lab Results Laboratory Tests Test 07/16/19 09:45 07/16/19 11:45 Range/Units White Blood Count 7.2 4.3-11.0 10^3/uL Red Blood Count 4.86 4.35-5.85 10^6/uL Hemoglobin 15.6 11.5-16.0 G/DL Hematocrit 45 35-52 % Mean Corpuscular Volume 93 80-99 FL Mean Corpuscular Hemoglobin 32 25-34 PG Mean Corpuscular Hemoglobin Concent 34 32-36 G/DL Red Cell Distribution Width 13.1 10.0-14.5 % Platelet Count 258 130-400 10^3/uL Mean Platelet Volume 10.3 7.4-10.4 FL Sodium Level 139 135-145 MMOL/L Potassium Level 3.3 L 3.6-5.0 MMOL/L Chloride Level 102 98-107 MMOL/L Carbon Dioxide Level 26 21-32 MMOL/L Anion Gap 11 5-14 MMOL/L Blood Urea Nitrogen 10 7-18 MG/DL Creatinine 0.62 0.60-1.30 MG/DL Estimat Glomerular Filtration Rate > 60 BUN/Creatinine Ratio 16 Glucose Level 102 70-105 MG/DL Calcium Level 9.1 8.5-10.1 MG/DL Corrected Calcium 8.7 8.5-10.1 MG/DL Total Bilirubin 0.2 0.1-1.0 MG/DL Aspartate Amino Transf (AST/SGOT) 12 5-34 U/L Alanine Aminotransferase (ALT/SGPT) 10 0-55 U/L Alkaline Phosphatase 116 40-136 U/L Troponin I < 0.30 < 0.30 <0.30 NG/ML Total Protein 7.5 6.4-8.2 GM/DL Albumin 4.5 3.2-4.5 GM/DL My Orders Orders - ARISTEO COYNE DO Cbc No Diff (07/16/19 09:49) Comprehensive Metabolic Panel (07/16/19 09:49) Troponin I Fs (07/16/19 09:49) Ekg Tracing (07/16/19 09:49) Labetalol Injection (Normodyne Injection (07/16/19 10:00) Chest 1 View Ap/Pa Only (07/16/19 09:51) Hydrocodone/Apap 10/325 Tablet (Lortab 1 (07/16/19 10:00) Lorazepam Injection (Ativan Injection) (07/16/19 10:45) Labetalol Injection (Normodyne Injection (07/16/19 10:45) Troponin I Fs (07/16/19 10:57) Medications Given in ED Current Medications Medications Dose Ordered Sig/Norma Route Start Time Stop Time Status Last Admin Dose Admin Acetaminophen/ Hydrocodone Bitart 1 ea ONCE ONCE PO 07/16/19 10:00 07/16/19 10:01 DC 07/16/19 10:04 1 EA Labetalol HCl 20 mg ONCE ONCE IV 07/16/19 10:00 07/16/19 10:01 DC 07/16/19 10:04 20 MG Labetalol HCl 20 mg ONCE ONCE IV 07/16/19 10:45 07/16/19 10:46 DC 07/16/19 10:53 20 MG Lorazepam 1 mg ONCE ONCE IVP 07/16/19 10:45 07/16/19 10:46 DC 07/16/19 10:52 1 MG Vital Signs/I&O 07/16/19 07/16/19 09:40 09:40 Temp 37.3 Pulse 108 Resp 17 B/P (MAP) 172/127 (142) Pulse Ox 98 O2 Delivery Room Air Room Air Blood Pressure Mean: 142 Departure Communication (Admissions) EKG, labs reviewed. Serial troponin Troponin negative. Suspect chest pain is related to narcotic withdrawal and anxiety. Both chest pain and anxiety resolved with Ativan. Blood pressure improved with labetalol. Recommend filling new narcotic prescription taking pain blood pressure medication as scheduled with closely PCP follow-up for reevaluation of chest pain. Return cautions reviewed. Patient verbalizes understanding and agreement discharge instructions prior to departure. Impression Primary Impression: Chest pain Additional Impression: Hypertension Disposition: 01 HOME, SELF-CARE Condition: Improved Departure-Patient Inst. Referrals: RICHARD HERMAN MD (PCP/Family) Primary Care Physician Patient Instructions: High Blood Pressure Emergencies, Chest Pain (DC) Add. Discharge Instructions: Please take your pain medication and blood pressure medication as scheduled this afternoon. Follow-up with your PCP for reevaluation tomorrow. Return to the ED if new or worsening symptoms. All discharge instructions reviewed with patient and/or family. Voiced understanding. ARISTEO COYNE DO Jul 16, 2019 12:23
[2019-07-16 12:39] VITALS: BP 169/100
== END 2019-07-16 12:39 | disposition home or self-care (01) ==
LOC: EDUNIT# 09:33 → ER FS 09:35
DX: R07.9 Chest pain, unspecified (principal); I10 Essential (primary) hypertension; I25.2 Old myocardial infarction; Z88.6 Allergy status to analgesic agent; Z95.810 Presence of automatic (implantable) cardiac defibrillator; Z88.5 Allergy status to narcotic agent; Z77.22 Contact with and (suspected) exposure to environmental tobacco smoke (acute) (chronic); Z90.710 Acquired absence of both cervix and uterus; Z98.51 Tubal ligation status
CPT/HCPCS: 36415; 71045; 80053; 84484; 85027; 93005

== ENCOUNTER 2019-07-18 20:39 | Emergency (ER) | payer BC ==
[~2019-07-18] VITALS: Ht 170.1 cm; Wt 91.3 kg
--- NOTE | 2019-07-18 20:46 | ED Chest Pain ---
General Stated Complaint: CHEST PAIN,SOB Source: patient History of Present Illness Date Seen by Provider: Jul 18, 2019 Time Seen by Provider: 20:46 Initial Comments 49-year-old female presenting with complaints of pressure in her chest. She states this started at 7:30 PM. She was just sitting watching TV when it came on. She denies any radiation of pain. She is currently out of her chronic pain medication as well as blood pressure medication. She is scheduled to see her primary provider tomorrow for refills of the medications. She denies having nausea or vomiting. She has had no medications at home for the pain. She denies any change in her vision. She has some swelling and numbness in her right arm and hand. Allergies and Home Medications Allergies Coded Allergies: aspirin (Verified Allergy, Unknown, 03/07/19) morphine (Verified Allergy, Unknown, 04/21/19) Patient states is not allergic to Morphine Home Medications Cephalexin 500 Mg Tablet, 500 MG PO QID Prescribed by: LAMIN ADLER on 02/27/19 2322 Cyclobenzaprine HCl 10 Mg Tablet, 10 MG PO HS PRN for SPASMS Prescribed by: LAMIN ADLER on 02/27/19 2322 Patient Home Medication List Home Medication List Reviewed: Yes Review of Systems Review of Systems Constitutional: No chills; dizziness; No fever; malaise EENTM: See HPI Respiratory: No Symptoms Reported, Shortness of Air, SOA With Exertion, SOA at Rest Cardiovascular: Chest Pain (pressure); Denies Edema; Irregular Heart Rate, Lightheadedness Gastrointestinal: Abdomen Distended; Denies Constipated; Difficulty Swallowing Genitourinary: Denies Frequency, Denies Pain Musculoskeletal: back pain (chronic lumbar pain) Skin: No change in color, No dryness, No lesions Psychiatric/Neurological: No Symptoms Reported Past Nuyrndu-Kdatbn-Ifyslp Hx Past Med/Social Hx: Reviewed Nursing Past Med/Soc Hx Patient Social History Alcohol Use: Denies Use Type Used: Cigarettes 2nd Hand Smoke Exposure: Yes Recent Foreign Travel: No Contact w/Someone Who Travel: No Recent Hopitalizations: No Immunizations Up To Date Tetanus Booster (TDap): Unknown Date of Influenza Vaccine: Jul 16, 2018 Seasonal Allergies Seasonal Allergies: No Past Medical History Surgeries: Yes Defibrillator, Gallbladder, Hysterectomy, Pacemaker, 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 Respiratory: No Cardiac: Yes (pacemaker/defib) Heart Attack, Hypertension 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 0oz. [id number]; 31.00 BMI Method:Stated General Appearance: No Apparent Distress, WD/WN HEENT: PERRL/EOMI, TMs Normal, Normal ENT Inspection, Pharynx Normal Neck: Full Range of Motion, Normal Inspection, Non Tender, Supple Respiratory: Chest Non Tender, Lungs Clear, Normal Breath Sounds, No Accessory Muscle Use, No Respiratory Distress Cardiovascular: Regular Rate, Rhythm, Normal Peripheral Pulses Gastrointestinal: Normal Bowel Sounds, No Organomegaly, Non Tender, Soft Extremity: No Normal Capillary Refill; Normal Inspection, Normal Range of Motion, Non Tender, No Calf Tenderness Neurologic/Psychiatric: Alert, Oriented x3 Skin: Normal Color, Warm/Dry Progress/Results/Core Measures Results/Orders Lab Results Laboratory Tests Test 07/18/19 21:00 07/18/19 21:15 07/18/19 22:45 Range/Units White Blood Count 9.1 4.3-11.0 10^3/uL Red Blood Count 4.28 L 4.35-5.85 10^6/uL Hemoglobin 13.5 11.5-16.0 G/DL Hematocrit 41 35-52 % Mean Corpuscular Volume 95 80-99 FL Mean Corpuscular Hemoglobin 32 25-34 PG Mean Corpuscular Hemoglobin Concent 33 32-36 G/DL Red Cell Distribution Width 13.2 10.0-14.5 % Platelet Count 253 130-400 10^3/uL Mean Platelet Volume 9.9 7.4-10.4 FL Neutrophils (%) (Auto) 49 42-75 % Lymphocytes (%) (Auto) 43 12-44 % Monocytes (%) (Auto) 5 0-12 % Eosinophils (%) (Auto) 2 0-10 % Basophils (%) (Auto) 0 0-10 % Neutrophils # (Auto) 4.5 1.8-7.8 X 10^3 Lymphocytes # (Auto) 4.0 1.0-4.0 X 10^3 Monocytes # (Auto) 0.5 0.0-1.0 X 10^3 Eosinophils # (Auto) 0.1 0.0-0.3 10^3/uL Basophils # (Auto) 0.0 0.0-0.1 10^3/uL Prothrombin Time 12.0 L 12.2-14.7 SEC INR Comment 0.9 0.8-1.4 Activated Partial Thromboplast Time 26 24-35 SEC Sodium Level 143 135-145 MMOL/L Potassium Level 3.1 L 3.6-5.0 MMOL/L Chloride Level 105 98-107 MMOL/L Carbon Dioxide Level 24 21-32 MMOL/L Anion Gap 14 5-14 MMOL/L Blood Urea Nitrogen 12 7-18 MG/DL Creatinine 0.91 0.60-1.30 MG/DL Estimat Glomerular Filtration Rate > 60 BUN/Creatinine Ratio 13 Glucose Level 154 H 70-105 MG/DL Calcium Level 9.1 8.5-10.1 MG/DL Corrected Calcium 9.0 8.5-10.1 MG/DL Magnesium Level 1.6 1.6-2.4 MG/DL Total Bilirubin 0.2 0.1-1.0 MG/DL Aspartate Amino Transf (AST/SGOT) 16 5-34 U/L Alanine Aminotransferase (ALT/SGPT) 14 0-55 U/L Alkaline Phosphatase 104 40-136 U/L Troponin I < 0.30 < 0.30 <0.30 NG/ML Pro-B-Type Natriuretic Peptide 213.2 H <75.0 PG/ML Total Protein 6.7 6.4-8.2 GM/DL Albumin 4.1 3.2-4.5 GM/DL Urine Color YELLOW Urine Clarity SL CLOUDY Urine pH 6.5 5-9 Urine Specific [place] 1.020 1.016-1.022 Urine Protein NEGATIVE NEGATIVE Urine Glucose (UA) NEGATIVE NEGATIVE Urine Ketones NEGATIVE NEGATIVE Urine Nitrite NEGATIVE NEGATIVE Urine Bilirubin NEGATIVE NEGATIVE Urine Urobilinogen 0.2 NORMAL MG/DL Urine Leukocyte Esterase NEGATIVE NEGATIVE Urine RBC (Auto) NEGATIVE NEGATIVE Urine RBC NONE /HPF Urine WBC NONE /HPF Urine Squamous Epithelial Cells >50 H /HPF Urine Crystals PRESENT H /LPF Urine Calcium Oxalate Crystals MODERATE H /LPF Urine Amorphous Sediment FEW HAO URATES H /LPF Urine Bacteria NONE /HPF Urine Casts NONE /LPF Urine Mucus NEGATIVE /LPF Urine Culture Indicated NO My Orders Orders - LAMIN ADLER MD Cbc With Automated Diff (07/18/19 20:44) Magnesium (07/18/19 20:44) Ekg Tracing (07/18/19 20:44) Comprehensive Metabolic Panel (07/18/19:44) Protime With Inr (07/18/19 20:44) Partial Thromboplastin Time (07/18/19 20:44) O2 (07/18/19 20:44) Monitor-Rhythm Ecg Trace Only (07/18/19 20:44) Ed Iv/Invasive Line Start (07/18/19 20:44) Troponin I Fs (07/18/19 20:44) Probnp Fs (07/18/19 20:44) Metoprolol Tartrate Injection (Lopressor (07/18/19 21:03) Hydromorphone Injection (Dilaudid Inject (07/18/19 21:03) Chest Pa/Lat (2 View) (07/18/19 21:03) Hydromorphone Injection (Dilaudid Inject (07/18/19 22:24) Lorazepam Injection (Ativan Injection) (07/18/19 22:24) Metoprolol Tartrate Injection (Lopressor (07/18/19 22:24) Troponin I Fs (07/18/19 23:00) Ua Culture If Indicated (07/18/19 22:26) Amlodipine Tablet (Norvasc Tablet) (07/19/19 00:16) Clonidine Tablet (Catapres Tablet) (07/19/19 00:16) Lisinopril Tablet (Zestril Tablet) (07/19/19 00:16) Spironolactone Tablet (Aldactone Tablet) (07/19/19 00:16) Metoprolol Succinate (Xl) Tab (Toprol Xl (07/19/19 00:16) Hydrocodone/Apap 10/325 Tablet (Lortab 1 (07/19/19 00:16) Rx-Hydrocodone/Apap 5-325 Mg (Rx-Vicodin (07/19/19 00:30) Vital Signs/I&O 10/3/19 10/3/19 21:00 21:08 Temp 36.8 Pulse 117 Resp 20 B/P (MAP) 155/92 (113) Pulse Ox 96 O2 Delivery Room Air Room Air Progress Progress Note #1: Progress Note Check basic labs as well as electrocardiogram, chest x-ray, cardiac testing. She has previously gotten beta blockers as well as Dilaudid for her pain. Will give her a dose of these to try and help with her symptoms. Her electrocardiogram shows sinus tachycardia with no ST elevation. This appears similar to prior tracings. Progress Note #2: Progress Note Labs to show any acute significant abnormality on her troponin. She appears stable and her CBC and chemistry otherwise compared to testing from July 16. Her symptoms are improved after treatment with medication. She continues to have pressure in her chest but again it is improved since her blood pressure has come down some and her heart rate has improved. Will repeat the beta javon as well as the pain medication. She had responded to some Ativan in addition to the medications when she was here the other night. We will try adding one on top of her medications. Repeat the troponin for a second set and see if there is any change. Progress Note #3: Progress Note Repeat troponin is still <0.3. Reassured pt that she appears to be having symptoms related to being out of her medicines and not from having a heart attack. Will order oral doses of her medicines and encourage her to keep follow up with Dr. Wilde as scheduled Monday to refill her medicines. Initial ECG Impression Date: Jul 18, 2019 Initial ECG Impression Time: 20:41 Initial ECG Rate: 120 Initial ECG Rhythm: S.Tach Initial ECG Comparisson: Unchanged Comment Sinus tachycardia with heart rate of 120 bpm. RI interval 556 ms. QT interval 281 ms with a QT corrected interval 397 ms. She has no acute ST elevation. This appears similar to prior tracings in the system. Diagnostic Imaging Diagonstic Imaging: Xray Plain Films/CT/US/NM/MRI: chest Comments NAME: [facility] REC#: [id number] PT STATUS: REG ER : 1970 PHYSICIAN: LAMIN ADLER MD ADMIT DATE: 07/18/19/ER FS Draft Date of Exam:07/18/19 CHEST PA/LAT (2 VIEW) EXAM: Chest PA/LAT (2 view). INDICATION: Chest pain. COMPARISON: 07/16/2019. FINDINGS: Normal heart size and pulmonary vascularity. AICD. No dense consolidation, pleural effusion or pneumothorax. No acute osseous findings. No significant change. IMPRESSION: No acute cardiopulmonary findings. Dictated on workstation # [id number] Dict: 07/18/192125 Trans: 07/18/192127 [facility] [id number] Interpreted by: LORENA AWLKER MD Electronically signed by: Departure Impression Primary Impression: Chest pressure Additional Impressions: Hypertension Qualified Codes: I10 - Essential (primary) hypertension Chronic pain Qualified Codes: G89.4 - Chronic pain syndrome Disposition: HOME, SELF-CARE Condition: Stable Departure-Patient Inst. Decision time for Depature: 00:20 Referrals: RICHARD WILDE MD (PCP/Family) Primary Care Physician Patient Instructions: Chest Pain (DC), Chronic Pain (DC), High Blood Pressure (DC) Add. Discharge Instructions: Follow up with Dr. Wilde on Monday for refills of your medicines and to get your blood pressure under control. LAMIN ADLER MD Jul 18, 2019 20:46
[2019-07-18] MEDS ORDERED: meTOprolol 5 MG/5 ML (LOPRESSOR) VIAL IV STA ×2 (21:03→22:24)
[2019-07-18] MEDS ORDERED: HYDROmorphone 2 MG/ML VIAL (DILAUDID) IV STA ×2 (21:03→22:24)
[2019-07-18 21:07] LABS: BASOPHILS % (AUTO) 0 % (0-10); EOSINOPHILS # (AUTO) 0.1 10^3/uL (0.0-0.3); EOSINOPHILS % (AUTO) 2 % (0-10); HEMATOCRIT 41 % (35-52); HEMOGLOBIN 13.5 G/DL (11.5-16.0); LYMPHOCYTES % (AUTO) 43 % (12-44); MEAN CORPUSCULAR HEMOGLOBIN 32 PG (25-34); MEAN CORPUSCULAR HGB CONC 33 G/DL (32-36); MEAN CORPUSCULAR VOLUME 95 FL (80-99); MEAN PLATELET VOLUME 9.9 FL (7.4-10.4); MONOCYTES # (AUTO) 0.5 X 10^3 (0.0-1.0); MONOCYTES % (AUTO) 5 % (0-12); NEUTROPHILS # (AUTO) 4.5 X 10^3 (1.8-7.8); NEUTROPHILS % (AUTO) 49 % (42-75); PLATELET COUNT 253 10^3/uL (130-400); RED CELL DISTRIBUTION WIDTH 13.2 % (10.0-14.5); WHITE BLOOD COUNT 9.1 10^3/uL (4.3-11.0)
[2019-07-18 21:17] LABS: INR 0.9 (0.8-1.4)
[2019-07-18 21:26] LABS: ALANINE AMINOTRANSFERASE 14 U/L (0-55); ALBUMIN 4.1 GM/DL (3.2-4.5); ALKALINE PHOSPHATASE 104 U/L (40-136); BILIRUBIN,TOTAL 0.2 MG/DL (0.1-1.0); BUN/CREATININE RATIO 13; CALCIUM 9.1 MG/DL (8.5-10.1); CARBON DIOXIDE 24 MMOL/L (21-32); CHLORIDE 105 MMOL/L (98-107); CREATININE SERUM 0.91 MG/DL (0.60-1.30); GFR ESTIMATED > 60; GLUCOSE 154 MG/DL (70-105); POTASSIUM 3.1 MMOL/L (3.6-5.0); SODIUM 143 MMOL/L (135-145); TOTAL PROTEIN 6.7 GM/DL (6.4-8.2)
--- NOTE | 2019-07-18 21:28 | Diagnostic Imaging Report ---
EXAM: Chest PA/LAT (2 view). INDICATION: Chest pain. COMPARISON: 07/16/2019. FINDINGS: Normal heart size and pulmonary vascularity. AICD. No dense consolidation, pleural effusion or pneumothorax. No acute osseous findings. No significant change. IMPRESSION: No acute cardiopulmonary findings. Dictated by: Dictated on workstation # [id number]
[2019-07-18 21:41] LABS: MAGNESIUM 1.6 MG/DL (1.6-2.4)
[2019-07-18] MEDS ORDERED: LORazepam INJ 2 MG/ML (ATIVAN) VIAL IVP STA (22:24)
[2019-07-18 22:40] LABS: BILIRUBIN,URINE NEGATIVE (NEGATIVE); CLARITY,URINE SL CLOUDY; COLOR,URINE YELLOW; GLUCOSE, URINE (UA) NEGATIVE (NEGATIVE); KETONES,URINE NEGATIVE (NEGATIVE); LEUKOCYTE ESTERASE ,URINE NEGATIVE (NEGATIVE); NITRITE,URINE NEGATIVE (NEGATIVE); PH,URINE 6.5 (5-9); PROTEIN,URINE NEGATIVE (NEGATIVE); SQUAMOUS EPITHELIAL CELL,UR >50 /HPF; UROBILINOGEN,URINE 0.2 MG/DL (NORMAL)
[2019-07-18 22:41] LABS: AMORPHOUS SEDIMENT,UR FEW AMOR URATES /LPF; CALCIUM OXALATE CRYSTALS,UR MODERATE /LPF
--- NOTE | 2019-07-18 23:09 | NUR ---
BLOOD PRESSURE IS 180/121
[2019-07-19] MEDS ORDERED: HYDROcodone/APAP 10 MG/325 MG (LORTAB) TAB PO STA (00:16)
[2019-07-19] MEDS ORDERED: meTOproloL SUCCINATE 50 MG (TOPROL XL) TAB PO STA (00:16)
[2019-07-19] MEDS ORDERED: SPIRONOLACTONE 25 MG (ALDACTONE) TAB PO STA (00:16)
[2019-07-19] MEDS ORDERED: amLODIPine 10 MG (NORVASC) TAB PO STA (00:16)
[2019-07-19] MEDS ORDERED: cloNIDine 0.2 MG (CATAPRES) TAB PO STA (00:16)
[2019-07-19] MEDS ORDERED: lisINopril 20 MG (PRINIVIL) TABLET PO STA (00:16)
[2019-07-19] MEDS ORDERED: cloNIDine 0.1 MG (CATAPRES) TAB ONE (00:26)
[2019-07-19] MEDS ORDERED: lisINopril 10 MG (PRINIVIL) TABLET ONE (00:27)
[2019-07-19] MEDS: RX-HYDROCODONE/APAP 5/325 MG #4 TAB PK PO PRN ×2 (00:30→00:39)
[2019-07-19 00:45] VITALS: BP 168/101
== END 2019-07-19 00:41 | disposition home or self-care (01) ==
LOC: EDUNIT# 20:39 → ER FS 20:40
DX: R07.89 Other chest pain (principal); I10 Essential (primary) hypertension; G89.29 Other chronic pain; I25.2 Old myocardial infarction; Z88.6 Allergy status to analgesic agent; Z88.5 Allergy status to narcotic agent; Z77.22 Contact with and (suspected) exposure to environmental tobacco smoke (acute) (chronic); Z98.51 Tubal ligation status; Z95.810 Presence of automatic (implantable) cardiac defibrillator; Z90.710 Acquired absence of both cervix and uterus
CPT/HCPCS: 36415; 71046; 80053; 81000; 83735; 83880; 84484; 85025; 85610; 85730; 93005; 93041; 96374; 96375; 96376

== ENCOUNTER 2019-07-20 21:46 | Emergency (ER) | payer BC ==
[~2019-07-20] VITALS: Ht 170.1 cm; Wt 91.3 kg
[2019-07-20] MEDS ORDERED: LABETALOL HCL 20 MG/4 ML VIAL IV ONE (22:00)
[2019-07-20] MEDS ORDERED: cloNIDine 0.1 MG (CATAPRES) TAB PO ONE (22:00)
[2019-07-20] MEDS ORDERED: fentaNYL INJECTION 100 MCG/2 ML AMP IVP ONE (22:00)
[2019-07-20 22:06] LABS: BASOPHILS % (AUTO) 0 % (0-10); EOSINOPHILS % (AUTO) 1 % (0-10); HEMATOCRIT 44 % (35-52); LYMPHOCYTES % (AUTO) 27 % (12-44); MEAN CORPUSCULAR HEMOGLOBIN 32 PG (25-34); MEAN CORPUSCULAR HGB CONC 34 G/DL (32-36); MEAN CORPUSCULAR VOLUME 94 FL (80-99); MEAN PLATELET VOLUME 9.9 FL (7.4-10.4); MONOCYTES # (AUTO) 0.4 X 10^3 (0.0-1.0); MONOCYTES % (AUTO) 5 % (0-12); NEUTROPHILS # (AUTO) 4.7 X 10^3 (1.8-7.8); NEUTROPHILS % (AUTO) 65 % (42-75); PLATELET COUNT 251 10^3/uL (130-400); WHITE BLOOD COUNT 7.3 10^3/uL (4.3-11.0)
--- NOTE | 2019-07-20 22:06 | ED Chest Pain ---
General Stated Complaint: CHEST PAIN; SOB Source: patient, family History of Present Illness Date Seen by Provider: Jul 20, 2019 Time Seen by Provider: 21:51 Initial Comments 49-year-old female presenting with complaints of chest pressure. She states that this came on with rest while she was watching TV. She did follow up with the clinic can get her medications refilled and hasn't taken those for tonight. She has been seen in the emergency department 3 times this week for the same complaint. Each time her cardiac enzymes have been negative and she has been discharged home. She came back in tonight because again she was having chest pressure while she was sitting watching TV. She denied any activity to bring on these symptoms of chest pressure. She denies any nausea. She has no shortness of breath. Nothing tried to make the symptoms better. She also has chronic pain issues and takes medications for that and Dr. Wilde her primary is working on getting her referred to the pain management clinic for her chronic musculoskeletal chest pains as well. Allergies and Home Medications Allergies Coded Allergies: aspirin (Verified Allergy, Unknown, 03/07/19) morphine (Verified Allergy, Unknown, 04/21/19) Patient states is not allergic to Morphine Home Medications Cephalexin 500 Mg Tablet, 500 MG PO QID Prescribed by: LAMIN ADLER on 02/27/19 232 Cyclobenzaprine HCl 10 Mg Tablet, 10 MG PO HS PRN for SPASMS Prescribed by: LAMIN ADLER on 02/27/19 232 Furosemide 40 Mg Tablet, 40 MG PO DAILY Prescribed by: LAMIN ADLER on 07/21/19 0003 Patient Home Medication List Home Medication List Reviewed: Yes Review of Systems Review of Systems Constitutional: No chills, No fever EENTM: No Symptoms Reported Respiratory: No Symptoms Reported Cardiovascular: Chest Pain Gastrointestinal: No Symptoms Reported Genitourinary: No Symptoms Reported Musculoskeletal: back pain (chronic) Skin: no symptoms reported Past Bhkzdiq-Hxtfki-Lbedti Hx Past Med/Social Hx: Reviewed Nursing Past Med/Soc Hx Patient Social History Type Used: Cigarettes 2nd Hand Smoke Exposure: Yes Recent Hopitalizations: No Immunizations Up To Date Tetanus Booster (TDap): Unknown Date of Influenza Vaccine: Jul 16, 2018 Seasonal Allergies Seasonal Allergies: No Past Medical History Surgeries: Yes Defibrillator, Gallbladder, Hysterectomy, Pacemaker, 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 Respiratory: No Cardiac: Yes (pacemaker/defib) Heart Attack, Hypertension 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 0oz. 90.527627kc; 31.00 BMI Method:Stated General Appearance: No Apparent Distress, WD/WN HEENT: Normal ENT Inspection, Pharynx Normal Neck: Normal Inspection, Non Tender, Supple; No Carotid Bruit Respiratory: Lungs Clear, Normal Breath Sounds, No Accessory Muscle Use, No Respiratory Distress Cardiovascular: Regular Rate, Rhythm, Normal Peripheral Pulses Gastrointestinal: No Pulsatile Mass, Non Tender, Soft Extremity: Normal Capillary Refill, Non Tender, No Calf Tenderness, No Pedal Edema Neurologic/Psychiatric: Alert, Oriented x3, No Motor/Sensory Deficits Skin: Normal Color, Warm/Dry Progress/Results/Core Measures Results/Orders Lab Results Laboratory Tests Test 07/20/19 21:56 Range/Units White Blood Count 7.3 4.3-11.0 10^3/uL Red Blood Count 4.71 4.35-5.85 10^6/uL Hemoglobin 15.0 11.5-16.0 G/DL Hematocrit 44 35-52 % Mean Corpuscular Volume 94 80-99 FL Mean Corpuscular Hemoglobin 32 25-34 PG Mean Corpuscular Hemoglobin Concent 34 32-36 G/DL Red Cell Distribution Width 13.0 10.0-14.5 % Platelet Count 251 130-400 10^3/uL Mean Platelet Volume 9.9 7.4-10.4 FL Neutrophils (%) (Auto) 65 42-75 % Lymphocytes (%) (Auto) 27 12-44 % Monocytes (%) (Auto) 5 0-12 % Eosinophils (%) (Auto) 1 0-10 % Basophils (%) (Auto) 0 0-10 % Neutrophils # (Auto) 4.7 1.8-7.8 X 10^3 Lymphocytes # (Auto) 2.0 1.0-4.0 X 10^3 Monocytes # (Auto) 0.4 0.0-1.0 X 10^3 Eosinophils # (Auto) 0.1 0.0-0.3 10^3/uL Basophils # (Auto) 0.0 0.0-0.1 10^3/uL Prothrombin Time 12.7 12.2-14.7 SEC INR Comment 0.9 0.8-1.4 Activated Partial Thromboplast Time 27 24-35 SEC Sodium Level 141 135-145 MMOL/L Potassium Level 3.0 L 3.6-5.0 MMOL/L Chloride Level 104 98-107 MMOL/L Carbon Dioxide Level 23 21-32 MMOL/L Anion Gap 14 5-14 MMOL/L Blood Urea Nitrogen 8 7-18 MG/DL Creatinine 0.61 0.60-1.30 MG/DL Estimat Glomerular Filtration Rate > 60 BUN/Creatinine Ratio 13 Glucose Level 145 H 70-105 MG/DL Calcium Level 9.2 8.5-10.1 MG/DL Corrected Calcium 8.8 8.5-10.1 MG/DL Magnesium Level 1.7 1.6-2.4 MG/DL Total Bilirubin 0.3 0.1-1.0 MG/DL Aspartate Amino Transf (AST/SGOT) 15 5-34 U/L Alanine Aminotransferase (ALT/SGPT) 16 0-55 U/L Alkaline Phosphatase 121 40-136 U/L Troponin I < 0.30 <0.30 NG/ML Pro-B-Type Natriuretic Peptide 1229.0 H <75.0 PG/ML Total Protein 7.5 6.4-8.2 GM/DL Albumin 4.5 3.2-4.5 GM/DL My Orders Orders - LAMIN ADLER MD Cbc With Automated Diff (07/20/19 21:57) Magnesium (07/20/19 21:57) Chest 1 View Ap/Pa Only (07/20/19 21:57) Ekg Tracing (07/20/19 21:57) Comprehensive Metabolic Panel (07/20/19 21:57) Protime With Inr (07/20/19 21:57) Partial Thromboplastin Time (07/20/19 21:57) O2 (07/20/19 21:57) Monitor-Rhythm Ecg Trace Only (07/20/19 21:57) Ed Iv/Invasive Line Start (07/20/19 21:57) Troponin I Fs (07/20/19 21:57) Probnp Fs (07/20/19 21:57) Clonidine Tablet (Catapres Tablet) (07/20/19 22:00) Labetalol Injection (Normodyne Injection (07/20/19 22:00) Fentanyl Injection (Sublimaze Injection (07/20/19 22:00) Furosemide Injection (Lasix Injection) (07/20/19 23:00) Labetalol Injection (Normodyne Injection (07/20/19 23:00) Clonidine Tablet (Catapres Tablet) (07/20/19 23:00) Fentanyl Injection (Sublimaze Injection (07/20/19 23:00) Hydrocodone/Apap 10/325 Tablet (Lortab 1 (07/20/19 23:00) Rx-Hydrocodone/Apap 5-325 Mg (Rx-Vicodin (07/21/19 00:00) Medications Given in ED Current Medications Medications Dose Ordered Sig/Norma Route Start Time Stop Time Status Last Admin Dose Admin Clonidine HCl 0.1 mg ONCE ONCE PO 07/20/19 22:00 07/20/19 22:01 DC 07/20/19 22:07 0.1 MG Fentanyl Citrate 50 mcg ONCE ONCE IVP 07/20/19 22:00 07/20/19 22:01 DC 07/20/19 22:07 50 MCG Labetalol HCl 20 mg ONCE ONCE IV 07/20/19 22:00 07/20/19 22:01 DC 07/20/19 22:05 20 MG Vital Signs/I&O 07/20/19 07/20/19 07/20/19 07/20/19 21:47 21:47 21:56 23:59 Temp 36.2 36.7 Pulse 90 73 Resp 16 16 B/P (MAP) 204/115 (144) 144/90 Pulse Ox 97 100 O2 Delivery Nasal Cannula Nasal Cannula Nasal Cannula Nasal Cannula O2 Flow Rate 2.0 2.00 2.00 2.00 FiO2 97 Progress Progress Note #1: Progress Note Check labs and ECG with CXR. Give additional medicine for her blood pressure and pain medicine for her chronic pain. No acute change or findings on her ECG. Progress Note #2: Progress Note On recheck she is feeling a little better. pain is now 7/10. She has no acute change on her CBC or Chemistry. Her proBNP is up over 1200 compared to just over 200 on the 3rd. She has continued elevated blood pressure. will add in additional dose of medicine and give lasix for her elevated BNP. However I advised her that if she is not feeling better and the BP is not improved than she will need to follow up with Cardiology as a transfer and see how they would like to manage her pressure and elevated BNP. Progress Note #3: Progress Note On recheck her blood pressure was down to 146/90 and pain was improved so discharge to home and send with a few hydrocodone as a take home pack. advised to check with dr. Rodriguez with cardiology on Monday but to return or seek medical care if having more pain/symptoms before then. Take Lasix for next 3 days. Initial ECG Impression Date: Jul 20, 2019 Initial ECG Impression Time: 21:47 Initial ECG Rate: 92 Initial ECG Rhythm: Normal Sinus Initial ECG Comparisson: Unchanged Comment Sinus rhythm with a heart rate 92 bpm. NH interval of 163 ms. QT interval 410 ms with a QT corrected interval 508 ms. She has no acute ST elevation. She does have some T-wave flattening. This appears similar to prior tracings. Diagnostic Imaging Diagonstic Imaging: Xray Plain Films/CT/US/NM/MRI: chest Comments On my review of her 1 view chest xray film she has No acute infiltrate or effusion. AICD in place. Reviewed: Reviewed by Me Departure Impression Primary Impression: Hypertension Qualified Codes: I10 - Essential (primary) hypertension Additional Impressions: Heart failure Qualified Codes: I50.9 - Heart failure, unspecified Chest pressure Chronic pain Qualified Codes: G89.29 - Other chronic pain Disposition: HOME, SELF-CARE Condition: Stable Departure-Patient Inst. Decision time for Depature: 00:00 Referrals: RICHARD WILDE MD (PCP/Family) Primary Care Physician Patient Instructions: Chest Pain (DC), Chronic Pain (DC), Heart Failure, Adult (DC) Add. Discharge Instructions: Take Furosemide (Lasix) daily for the next 3 days to help act as a diuretic and get some extra fluid off your heart and out of your system If you have worsening pain or symptoms return as you may need to go see cardiology otherwise call Dr. Rodriguez on Monday for follow up since you have had several visits this week for your chest pressure and elevated blood pressure. Scripts Furosemide (Lasix) 40 Mg Tablet 40 MG PO DAILY for 3 Days, #3 TAB 0 Refills Prov: LAMIN ADLER MD 07/21/19 LAMIN ADLER MD Jul 20, 2019 22:06
[2019-07-20 22:07] LABS: EOSINOPHILS # (AUTO) 0.1 10^3/uL (0.0-0.3)
[2019-07-20 22:34] LABS: INR 0.9 (0.8-1.4); PROTHROMBIN TIME PATIENT 12.7 SEC (12.2-14.7)
[2019-07-20 22:35] LABS: ALANINE AMINOTRANSFERASE 16 U/L (0-55); ALBUMIN 4.5 GM/DL (3.2-4.5); ALKALINE PHOSPHATASE 121 U/L (40-136); BILIRUBIN,TOTAL 0.3 MG/DL (0.1-1.0); BUN/CREATININE RATIO 13; CALCIUM 9.2 MG/DL (8.5-10.1); CARBON DIOXIDE 23 MMOL/L (21-32); CHLORIDE 104 MMOL/L (98-107); CREATININE SERUM 0.61 MG/DL (0.60-1.30); GFR ESTIMATED > 60; GLUCOSE 145 MG/DL (70-105); MAGNESIUM 1.7 MG/DL (1.6-2.4); SODIUM 141 MMOL/L (135-145); TOTAL PROTEIN 7.5 GM/DL (6.4-8.2)
[2019-07-20] MEDS ORDERED: FUROSEMIDE 40 MG/4 ML INJ (LASIX) IVP STA (23:00)
[2019-07-20] MEDS ORDERED: HYDROcodone/APAP 10 MG/325 MG (LORTAB) TAB PO STA (23:00)
[2019-07-20] MEDS ORDERED: cloNIDine 0.1 MG (CATAPRES) TAB PO STA (23:00)
[2019-07-20] MEDS ORDERED: LABETALOL HCL 20 MG/4 ML VIAL IV STA (23:00)
[2019-07-20] MEDS ORDERED: fentaNYL INJECTION 100 MCG/2 ML AMP IVP STA (23:00)
--- NOTE | 2019-07-20 23:23 | NUR ---
PT. HAD RATED HER PAIN A 7 SO DOCTOR ORDERED MORE PAIN MEDICATION.
--- NOTE | 2019-07-20 23:40 | NUR ---
BP IS NOW 179/102
[2019-07-20 23:59] VITALS: BP 144/90
[2019-07-21] MEDS ORDERED: RX-HYDROCODONE/APAP 5/325 MG #4 TAB PK PO PRN
[2019-07-21] MEDS ORDERED: FURO-124 PO (00:03)
--- NOTE | 2019-07-21 05:41 | Diagnostic Imaging Report ---
EXAMINATION: Chest 1 view at 9:53 PM INDICATION: Chest pain The heart size is within normal limits and stable when compared to 07/18/2009. The left-sided defibrillator device seen previously is again evident and no different. There is some crowding of the bronchovascular markings in the right infrahilar region when compared to the prior exam but there is no clear evidence for pneumonia or for a pleural effusion. The mediastinum is not widened. The osseous structures are intact. IMPRESSION: There are a few crowded bronchovascular markings in the right infrahilar region but there is no evidence for an acute cardiopulmonary abnormality. Dictated by: Dictated on workstation # [id number]
== END 2019-07-21 00:08 | disposition home or self-care (01) ==
LOC: EDUNIT# 21:46 → ER FS 21:47
DX: I11.0 Hypertensive heart disease with heart failure (principal); I50.9 Heart failure, unspecified; G89.29 Other chronic pain; I25.2 Old myocardial infarction; Z95.810 Presence of automatic (implantable) cardiac defibrillator; Z90.710 Acquired absence of both cervix and uterus; Z98.51 Tubal ligation status; Z88.5 Allergy status to narcotic agent; Z88.6 Allergy status to analgesic agent; Z77.22 Contact with and (suspected) exposure to environmental tobacco smoke (acute) (chronic)
CPT/HCPCS: 36415; 71045; 80053; 83735; 83880; 84484; 85025; 85610; 85730; 93005; 93041

== ENCOUNTER 2019-07-29 19:19 | Emergency (ER) | payer BC ==
[~2019-07-29] VITALS: Ht 170.1 cm; Wt 92.5 kg
[~2019-07-29 19:19] MED LIST changes: +FURO-124 PO
[2019-07-29] MEDS ORDERED: RT-ALBUTEROL/IPRATROPIUM 3 ML (DUONEB) VIAL INH ONE (19:45)
[2019-07-29] MEDS ORDERED: methylPREDNISolone 125 MG (Solu-MEDROL) VIAL IVP ONE (19:45)
--- NOTE | 2019-07-29 19:47 | ED Dyspnea ---
General Chief Complaint: Chest Pain Stated Complaint: SOB,COUGH,CHEST TIGHTNESS Source of Information: Patient Exam Limitations: No Limitations History of Present Illness Date Seen by Provider: Jul 29, 2019 Time Seen by Provider: 19:45 Initial Comments Patient complains of cough and wheezing and dyspnea for the past 24 hours. She also has some anterior chest tightness worse with breathing all day. She is coughing up yellow sputum. She had cold symptoms yesterday. No fevers or chills. Cough is productive of yellow sputum. Patient smokes a half a pack of cigarettes per day. She has a pacemaker. She has a diagnosis of COPD. On chart review she has had several visits recently for chest pain. All had negative enzymes and nondiagnostic EKGs. She is finishing a course of Lasix Allergies and Home Medications Allergies Coded Allergies: aspirin (Verified Allergy, Unknown, 03/07/19) morphine (Verified Allergy, Unknown, 04/21/19) Patient states is not allergic to Morphine Home Medications Azithromycin 250 Mg Tablet, 250 MG PO UD TAKE 2 TABLETS TODAY, THEN TAKE 1 TABLET DAILY FOR 4 MORE DAYS Prescribed by: CRAIG KHANNA on 07/29/192014 Benzonatate 100 Mg Capsule, 200 MG PO TID PRN for COUGH Prescribed by: CRAIG KHANNA on 07/29/192014 Cephalexin 500 Mg Tablet, 500 MG PO QID Prescribed by: LAMIN ADLER on 02/27/192321 Cyclobenzaprine HCl 10 Mg Tablet, 10 MG PO HS PRN for SPASMS Prescribed by: LAMIN ADLER on 02/27/192321 Furosemide 40 Mg Tablet, 40 MG PO DAILY Prescribed by: LAMIN ADLER on 07/21/192 Guaifenesin/Codeine Phosphate 473 Ml Liquid, 10 ML PO QID PRN for COUGH Prescribed by: CRAIG KHANNA on 07/29/192033 Methylprednisolone 4 Mg Tab.ds.pk, 4 MG PO UD PER DOSE PACK INSTRUCTIONS Prescribed by: CRAIG KHANNA on 07/29/192014 Patient Home Medication List Home Medication List Reviewed: Yes Review of Systems Review of Systems Constitutional: No fever; malaise, weakness EENTM: no symptoms reported Respiratory: cough, dyspnea on exertion; No hemoptysis; phlegm, wheezing Cardiovascular: chest pain Genitourinary: no symptoms reported Musculoskeletal: no symptoms reported Skin: no symptoms reported Psychiatric/Neurological: Anxiety Endocrine: No Symptoms Reported Hematologic/Lymphatic: No Symptoms Reported All Other Systems Reviewed Negative Unless Noted: Yes Past Dfualog-Giluee-Fpqgpy Hx Patient Social History Type Used: Cigarettes 2nd Hand Smoke Exposure: Yes Recent Foreign Travel: No Contact w/Someone Who Travel: No Recent Hopitalizations: No Immunizations Up To Date Tetanus Booster (TDap): Unknown Date of Influenza Vaccine: Jul 16, 2018 Seasonal Allergies Seasonal Allergies: No Past Medical History Surgeries: Yes Defibrillator, Gallbladder, Hysterectomy, Pacemaker, 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 Respiratory: No Cardiac: Yes (pacemaker/defib) Heart Attack, Hypertension Neurological: 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 0oz. 90.801264bw; 31.00 BMI Method:Stated General Appearance: WD/WN, Mild Distress HEENT: PERRL/EOMI, Pharynx Normal Neck: Supple Respiratory: Chest Non Tender, Decreased Breath Sounds, Expiration, Wheezing Cardiovascular: Regular Rate, Rhythm, No Edema Gastrointestinal: Non Tender, Soft Extremity: Normal Inspection, Normal Range of Motion, Non Tender, No Calf Tenderness Neurologic/Psychiatric: Alert, Oriented x3, No Motor/Sensory Deficits, Normal Mood/Affect Skin: Normal Color, Warm/Dry Progress/Results/Core Measures Results/Orders Lab Results Laboratory Tests Test 07/29/19 19:29 Range/Units White Blood Count 8.2 4.3-11.0 10^3/uL Red Blood Count 4.27 L 4.35-5.85 10^6/uL Hemoglobin 13.5 11.5-16.0 G/DL Hematocrit 41 35-52 % Mean Corpuscular Volume 95 80-99 FL Mean Corpuscular Hemoglobin 32 25-34 PG Mean Corpuscular Hemoglobin Concent 33 32-36 G/DL Red Cell Distribution Width 13.0 10.0-14.5 % Platelet Count 294 130-400 10^3/uL Mean Platelet Volume 10.4 7.4-10.4 FL Neutrophils (%) (Auto) 60 42-75 % Lymphocytes (%) (Auto) 33 12-44 % Monocytes (%) (Auto) 6 0-12 % Eosinophils (%) (Auto) 1 0-10 % Basophils (%) (Auto) 0 0-10 % Neutrophils # (Auto) 4.9 1.8-7.8 X 10^3 Lymphocytes # (Auto) 2.7 1.0-4.0 X 10^3 Monocytes # (Auto) 0.5 0.0-1.0 X 10^3 Eosinophils # (Auto) 0.1 0.0-0.3 10^3/uL Basophils # (Auto) 0.0 0.0-0.1 10^3/uL Sodium Level 139 135-145 MMOL/L Potassium Level 3.4 L 3.6-5.0 MMOL/L Chloride Level 101 98-107 MMOL/L Carbon Dioxide Level 24 21-32 MMOL/L Anion Gap 14 5-14 MMOL/L Blood Urea Nitrogen 12 7-18 MG/DL Creatinine 0.71 0.60-1.30 MG/DL Estimat Glomerular Filtration Rate > 60 BUN/Creatinine Ratio 17 Glucose Level 116 H 70-105 MG/DL Calcium Level 9.2 8.5-10.1 MG/DL Corrected Calcium 9.0 8.5-10.1 MG/DL Magnesium Level 1.8 1.6-2.4 MG/DL Total Bilirubin 0.2 0.1-1.0 MG/DL Aspartate Amino Transf (AST/SGOT) 11 5-34 U/L Alanine Aminotransferase (ALT/SGPT) 13 0-55 U/L Alkaline Phosphatase 126 40-136 U/L Troponin I < 0.30 <0.30 NG/ML Total Protein 7.4 6.4-8.2 GM/DL Albumin 4.3 3.2-4.5 GM/DL My Orders Orders - CRAIG KHANNA MD Cbc With Automated Diff (07/29/19:) Magnesium (07/29/19:) Chest 1 View Ap/Pa Only (07/29/19:) Ekg Tracing (07/29/19) Comprehensive Metabolic Panel (10/14/19 19:26) Monitor-Rhythm Ecg Trace Only (07/29/19 19:26) Ed Iv/Invasive Line Start (07/29/19 19:26) Troponin I Fs (07/29/19 19:26) Albuterol/Ipra Inhalation Soln (Duoneb I (07/29/19 19:45) Svn Small Volume Nebulizer (07/29/19 19:44) Methylprednisolone Sod Succ (Solu-Medrol (07/29/19 19:45) Ceftriaxone For Iv Use (Rocephin For I (07/29/19 20:00) Benzonatate Capsule (Tessalon Perles) (07/29/19 20:00) Acetaminophen Tablet (Tylenol Tablet) (07/29/19 20:15) Ondansetron Injection (Zofran Injectio (07/29/19 20:18) Acetaminophen/Codeine Tablet (Tylenol W/ (07/29/19 20:45) Medications Given in ED Current Medications Medications Dose Ordered Sig/Norma Route Start Time Stop Time Status Last Admin Dose Admin Acetaminophen 1,000 mg ONCE ONCE PO 07/29/19 20:15 07/29/19 20:16 DC 07/29/19 20:06 1,000 MG Acetaminophen/ Codeine Phosphate 2 tab ONCE ONCE PO 07/29/19 20:45 07/29/19 20:45 DC 07/29/19 20:38 2 TAB Albuterol/ Ipratropium 6 ml ONCE ONCE INH 07/29/19 19:45 07/29/19 19:46 DC 07/29/19 20:01 6 ML Ceftriaxone Sodium 1000 mg/ Sterile Water 10 ml @ 200 mls/hr ONCE ONCE IV 07/29/19 20:00 07/29/19 20:02 DC 07/29/19 20:06 200 MLS/HR Methylprednisolone Sodium Succinate 125 mg ONCE ONCE IVP 07/29/19 19:45 07/29/19 19:46 DC 07/29/19 20:01 125 MG Ondansetron HCl 4 mg STK-MED ONCE .ROUTE 07/29/19 20:18 07/29/19 20:21 DC 07/29/19 20:28 4 MG Vital Signs/I&O 07/29/19 07/29/19 07/29/19 19:25 19:51 20:38 Temp 36.6 36.8 Pulse 76 76 Resp 20 22 B/P (MAP) 150/86 (107) 137/70 Pulse Ox 99 99 O2 Delivery Room Air Room Air Room Air 07/30/19 00:00 Intake Total 10 ml Balance 10 ml Progress Progress Note : Time: 20:11 Progress Note Patient feels better after treatments. We'll treat her for with antibiotics for the questionable infiltrate in her chest x-ray. We will also treated with a course of steroids for her COPD. Initial ECG Impression Date: Jul 29, 2019 Initial ECG Impression Time: 19:26 Initial ECG Rate: 73 Initial ECG Rhythm: Normal Sinus Initial ECG Intervals: Normal Initial ECG Impression: Nonspecific Changes Departure Impression Primary Impression: Chest pain Additional Impressions: COPD exacerbation Pneumonia Disposition: HOME, SELF-CARE Condition: Stable Departure-Patient Inst. Decision time for Depature: 20:12 Referrals: RICHARD HERMAN MD (PCP/Family) Primary Care Physician Patient Instructions: Pneumonia in Adults Add. Discharge Instructions: Stop smoking. Finish antibiotics. See your doctor this week. All discharge instructions reviewed with patient and/or family. Voiced understanding. Scripts Guaifenesin/Codeine Phosphate (Guaifenesin AC Cough Syrup) 473 Ml Liquid 10 ML PO QID PRN for COUGH, #1 EA 0 Refills Prov: CRAIG KHANNA MD 07/29/19 Azithromycin (Zithromax) 250 Mg Tablet 250 MG PO UD, #6 TAB TAKE 2 TABLETS TODAY, THEN TAKE 1 TABLET DAILY FOR 4 MORE DAYS Prov: CRAIG KHANNA MD 07/29/19 Benzonatate (TESSALON PERLES) 100 Mg Capsule 200 MG PO TID PRN for COUGH, #15 CAP Prov: CRAIG KHANNA MD 07/29/19 Methylprednisolone (Medrol) 4 Mg Tab.ds.pk 4 MG PO UD for 6 Days, #21 PKG PER DOSE PACK INSTRUCTIONS Prov: CRAIG KHANNA MD 07/29/19 CRAIG KHANNA MD Jul 29, 2019 19:47
--- NOTE | 2019-07-29 19:48 | Diagnostic Imaging Report ---
EXAMINATION: PA chest at 7:16 PM INDICATION: Cough The heart size is within normal limits and stable when compared to 07/20/2019. The left-sided defibrillator device seen previously is again evident and no different. The prior study did note carotid markings in the right infrahilar region. That finding is again evident. There could be an element of mild pneumonia/atelectasis in this region. The lungs are otherwise generally clear. The mediastinum is not widened. The osseous structures are intact. IMPRESSION: 1. There is persistent crowding of the bronchovascular markings of the right infrahilar region. There could be an element of mild pneumonia in this area. Clinical follow-up is recommended. 2. The overall appearance of the chest is otherwise stable. Dictated by: Dictated on workstation # [id number]
[2019-07-29] MEDS ORDERED: BENZONATATE 100 MG (TESSALON) CAPSULE PO SCH (20:00)
[2019-07-29] MEDS ORDERED: cefTRIAXone FOR IV USE 1,000 MG in WATER (STERILE) FOR INJECTION 10 ML IV ONE (20:00)
[2019-07-29 20:07] LABS: HEMATOCRIT 41 % (35-52); HEMOGLOBIN 13.5 G/DL (11.5-16.0); MEAN CORPUSCULAR HEMOGLOBIN 32 PG (25-34); MEAN CORPUSCULAR HGB CONC 33 G/DL (32-36); MEAN CORPUSCULAR VOLUME 95 FL (80-99); MEAN PLATELET VOLUME 10.4 FL (7.4-10.4); PLATELET COUNT 294 10^3/uL (130-400); WHITE BLOOD COUNT 8.2 10^3/uL (4.3-11.0)
[2019-07-29 20:08] LABS: BASOPHILS % (AUTO) 0 % (0-10); EOSINOPHILS # (AUTO) 0.1 10^3/uL (0.0-0.3); EOSINOPHILS % (AUTO) 1 % (0-10); LYMPHOCYTES # (AUTO) 2.7 X 10^3 (1.0-4.0); LYMPHOCYTES % (AUTO) 33 % (12-44); MONOCYTES # (AUTO) 0.5 X 10^3 (0.0-1.0); MONOCYTES % (AUTO) 6 % (0-12); NEUTROPHILS # (AUTO) 4.9 X 10^3 (1.8-7.8); NEUTROPHILS % (AUTO) 60 % (42-75)
[2019-07-29] MEDS ORDERED: AZIT250T PO (20:15)
[2019-07-29] MEDS ORDERED: METH4TAB PO (20:15)
[2019-07-29] MEDS ORDERED: ACETAMINOPHEN 500 MG TAB (TYLENOL) PO ONE (20:15)
[2019-07-29] MEDS ORDERED: BENZ100C18 PO (20:15)
[2019-07-29 20:17] LABS: ALANINE AMINOTRANSFERASE 13 U/L (0-55); ALBUMIN 4.3 GM/DL (3.2-4.5); ALKALINE PHOSPHATASE 126 U/L (40-136); BILIRUBIN,TOTAL 0.2 MG/DL (0.1-1.0); BUN/CREATININE RATIO 17; CALCIUM 9.2 MG/DL (8.5-10.1); CARBON DIOXIDE 24 MMOL/L (21-32); CHLORIDE 101 MMOL/L (98-107); CREATININE SERUM 0.71 MG/DL (0.60-1.30); GFR ESTIMATED > 60; GLUCOSE 116 MG/DL (70-105); MAGNESIUM 1.8 MG/DL (1.6-2.4); POTASSIUM 3.4 MMOL/L (3.6-5.0); SODIUM 139 MMOL/L (135-145); TOTAL PROTEIN 7.4 GM/DL (6.4-8.2)
[2019-07-29] MEDS ORDERED: ONDANSETRON 4 MG/2 ML (SDV) Z0FRAN ONE (20:18)
[2019-07-29] MEDS ORDERED: GUAI473L29 PO (20:34)
[2019-07-29 20:38] VITALS: BP 137/70
[2019-07-29] MEDS ORDERED: APAP 300 MG/CODEINE 30 MG (TYLENOL #3) TAB PO ONE (20:45)
== END 2019-07-29 20:38 | disposition home or self-care (01) ==
LOC: EDUNIT# 19:19 → ER FS 19:22
DX: J44.1 Chronic obstructive pulmonary disease with (acute) exacerbation (principal); J18.9 Pneumonia, unspecified organism; I10 Essential (primary) hypertension; I25.2 Old myocardial infarction; F17.210 Nicotine dependence, cigarettes, uncomplicated; Z77.22 Contact with and (suspected) exposure to environmental tobacco smoke (acute) (chronic); Z95.810 Presence of automatic (implantable) cardiac defibrillator; Z90.710 Acquired absence of both cervix and uterus; Z98.51 Tubal ligation status; Z88.6 Allergy status to analgesic agent; Z88.5 Allergy status to narcotic agent
CPT/HCPCS: 36415; 71045; 80053; 83735; 84484; 85025; 93005; 93041

== ENCOUNTER 2019-08-13 20:25 | Inpatient (IN) | payer BC ==
[~2019-08-13] VITALS: Ht 170 cm; Wt 85.7 kg
[~2019-08-13 20:25] MED LIST changes: +AZIT250T PO; +BENZ100C18 PO; +GUAI473L29 PO; +METH4TAB PO
[2019-08-13 20:52] LABS: INR 0.9 (0.8-1.4); PROTHROMBIN TIME PATIENT 12.2 SEC (12.2-14.7)
--- NOTE | 2019-08-13 20:55 | ED Chest Pain ---
General Chief Complaint: Chest Pain Stated Complaint: RT ARM NUMB, CHEST PAIN, SOB Nursing Triage Note: PT STATES SHE GOT UPSET WITH HER DAUGHTER ABOUT 30 MIN MANAGER FINANCIAL SERVICES AND PASSED OUT. PT STATES SHE THEN STARTED HAVING CHEST PAIN AND SOB. Nursing Sepsis Screen: No Definite Risk Source: patient Exam Limitations: no limitations History of Present Illness Date Seen by Provider: Aug 13, 2019 Time Seen by Provider: 20:40 Initial Comments The patient is a 49-year-old female who presents for evaluation of chest pain, shortness of breath, and a brief syncopal episode. She states that she got into something emotional with her daughter approximately 30 minutes prior to arrival and passed out. Family witnessed this and states that she appeared to be unconscious or at least on the ground for about 5-10 seconds. The patient has a history of a IL in the past and has a pacemaker/defibrillator. She was not shocked during this episode. She is complaining of 9 out of 10 substernal chest pain radiating to the right arm. She denies fevers or chills, hemoptysis, produc tive cough, abdominal pain, back pain, focal weakness or numbness, current dizziness, palpitations, diaphoresis, or nausea or vomiting. She is alert and oriented 4, calm, and appears to be in no distress this time. She did not take an aspirin at home because she has an allergy. Of note the patient has had multiple recent emergency department visits for chest pain which have been u nremarkable. Timing/Duration: 1/2 hour Severity/Quality: severe Location: substernal Radiation: arms (right) Prior CP/Workup: cardiac cath, other (has pacemaker/defibrillator) ASA po MANAGER FINANCIAL SERVICES: No (patient has an allergy to aspirin which caused fluid to accu mulate around her heart) NTG SL MANAGER FINANCIAL SERVICES: No Associated Symptoms: shortness of breath Allergies and Home Medications Allergies Coded Allergies: aspirin (Verified Allergy, Unknown, 03/07/19) morphine (Verified Allergy, Unknown, 04/21/19) Patient states is not allergic to Morphine Home Medications Azithromycin 250 Mg Tablet, 250 MG PO UD TAKE 2 TABLETS TODAY, THEN TAKE 1 TABLET DAILY FOR 4 MORE DAYS Prescribed by: CRAIG KHANNA on 07/29/192014 Benzonatate 100 Mg Capsule, 200 MG PO TID PRN for COUGH Prescribed by: CRAIG KHANNA on 07/29/192014 Cephalexin 500 Mg Tablet, 500 MG PO QID Prescribed by: LAMIN ADLER on 02/27/192321 Cyclobenzaprine HCl 10 Mg Tablet, 10 MG PO HS PRN for SPASMS Prescribed by: LAMIN ADLER on 02/27/192321 Furosemide 40 Mg Tablet, 40 MG PO DAILY Prescribed by: LAMIN ADLER on 07/21/19 0003 Guaifenesin/Codeine Phosphate 473 Ml Liquid, 10 ML PO QID PRN for COUGH Prescribed by: CRAIG KHANNA on 07/29/192033 Methylprednisolone 4 Mg Tab.ds.pk, 4 MG PO UD PER DOSE PACK INSTRUCTIONS Prescribed by: CRAIG KHANNA on 07/29/192014 Patient Home Medication List Home Medication List Reviewed: Yes Review of Systems Review of Systems Constitutional: no symptoms reported EENTM: No Symptoms Reported Respiratory: Shortness of Air Cardiovascular: Chest Pain Gastrointestinal: No Symptoms Reported Genitourinary: No Symptoms Reported Musculoskeletal: no symptoms reported Skin: no symptoms reported Psychiatric/Neurological: No Symptoms Reported Endocrine: No Symptoms Reported Hematologic/Lymphatic: No Symptoms Reported All Other Systems Reviewed Negative Unless Noted: Yes Past Pnlikfl-Rxrnte-Qsyyyh Hx Past Med/Social Hx: Reviewed Nursing Past Med/Soc Hx Patient Social History Alcohol Use: Denies Use Recreational Drug Use: No Type Used: Cigarettes 2nd Hand Smoke Exposure: Yes Recent Foreign Travel: No Contact w/Someone Who Travel: No Recent Infectious Disease Expo: No Recent Hopitalizations: No Physical Abuse: No Sexual Abuse: No Mistreated: No Immunizations Up To Date Tetanus Booster (TDap): Unknown Date of Influenza Vaccine: Jul 16, 2018 Seasonal Allergies Seasonal Allergies: No Past Medical History Surgeries: Yes Defibrillator, Gallbladder, Hysterectomy, Pacemaker, 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 Respiratory: No Cardiac: Yes (pacemaker/defib) Heart Attack, Hypertension 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 0oz. 90.113013gf; 32.00 BMI Method:Stated General Appearance: No Apparent Distress, WD/WN HEENT: PERRL/EOMI, Pharynx Normal Neck: Full Range of Motion, Normal Inspection Respiratory: Chest Non Tender, Lungs Clear, Normal Breath Sounds, No Accessory Muscle Use Cardiovascular: Regular Rate, Rhythm, No Edema, No Murmur Gastrointestinal: Normal Bowel Sounds, Non Tender, Soft Extremity: Normal Capillary Refill, Non Tender, No Calf Tenderness Neurologic/Psychiatric: Alert, Oriented x3, No Motor/Sensory Deficits, Normal Mood/Affect Skin: Normal Color, Warm/Dry Progress/Results/Core Measures Results/Orders Lab Results Laboratory Tests Test 08/13/19 20:30 08/13/19 22:50 Range/Units White Blood Count 10.8 4.3-11.0 10^3/uL Red Blood Count 4.64 4.35-5.85 10^6/uL Hemoglobin 14.7 11.5-16.0 G/DL Hematocrit 43 35-52 % Mean Corpuscular Volume 93 80-99 FL Mean Corpuscular Hemoglobin 32 25-34 PG Mean Corpuscular Hemoglobin Concent 34 32-36 G/DL Red Cell Distribution Width 13.0 10.0-14.5 % Platelet Count 274 130-400 10^3/uL Mean Platelet Volume 9.9 7.4-10.4 FL Neutrophils (%) (Auto) 58 42-75 % Lymphocytes (%) (Auto) 34 12-44 % Monocytes (%) (Auto) 6 0-12 % Eosinophils (%) (Auto) 2 0-10 % Basophils (%) (Auto) 0 0-10 % Neutrophils # (Auto) 6.3 1.8-7.8 X 10^3 Lymphocytes # (Auto) 3.7 1.0-4.0 X 10^3 Monocytes # (Auto) 0.6 0.0-1.0 X 10^3 Eosinophils # (Auto) 0.2 0.0-0.3 10^3/uL Basophils # (Auto) 0.0 0.0-0.1 10^3/uL Prothrombin Time 12.2 12.2-14.7 SEC INR Comment 0.9 0.8-1.4 Activated Partial Thromboplast Time 26 24-35 SEC Sodium Level 138 135-145 MMOL/L Potassium Level 3.3 L 3.6-5.0 MMOL/L Chloride Level 102 98-107 MMOL/L Carbon Dioxide Level 20 L 21-32 MMOL/L Anion Gap 16 H 5-14 MMOL/L Blood Urea Nitrogen 11 7-18 MG/DL Creatinine 0.75 0.60-1.30 MG/DL Estimat Glomerular Filtration Rate > 60 BUN/Creatinine Ratio 15 Glucose Level 142 H 70-105 MG/DL Calcium Level 9.7 8.5-10.1 MG/DL Corrected Calcium 8.5-10.1 MG/DL Magnesium Level 1.8 1.6-2.4 MG/DL Total Bilirubin 0.2 0.1-1.0 MG/DL Aspartate Amino Transf (AST/SGOT) 13 5-34 U/L Alanine Aminotransferase (ALT/SGPT) 17 0-55 U/L Alkaline Phosphatase 116 40-136 U/L Myoglobin 21.0 10.0-92.0 NG/ML Troponin I 0.30 0.59 *H <0.30 NG/ML Pro-B-Type Natriuretic Peptide 135.7 H <75.0 PG/ML Total Protein 7.4 6.4-8.2 GM/DL Albumin 4.6 H 3.2-4.5 GM/DL My Orders Orders - NIYAH CANADA DO Cbc With Automated Diff (08/13/19 20:32) Magnesium (08/13/19 20:32) Chest 1 View Ap/Pa Only (08/13/19 20:32) Ekg Tracing (08/13/19 20:32) Comprehensive Metabolic Panel (08/13/19 20:32) Myoglobin Serum (08/13/19 20:32) Protime With Inr (08/13/19 20:32) Partial Thromboplastin Time (08/13/19 20:32) O2 (08/13/19 20:32) Monitor-Rhythm Ecg Trace Only (08/13/19 20:32) Ed Iv/Invasive Line Start (08/13/19 20:32) Troponin I Fs (08/13/19 20:32) Probnp Fs (08/13/19 20:32) Nitroglycerin 0.4 Mg Btl 25's (Nitrostat (08/13/19 21:00) Ondansetron Injection (Zofran Injectio (08/13/19 21:30) Fentanyl Injection (Sublimaze Injection (08/13/19 21:30) Potassium Chloride (Tablet) (K Dur Table (08/13/19 22:00) Troponin I Fs (08/13/19 23:00) Initiate Heparin Acs Protocol (08/13/19 23:36) Medications Given in ED Current Medications Medications Dose Ordered Sig/Norma Route Start Time Stop Time Status Last Admin Dose Admin Fentanyl Citrate 50 mcg ONCE ONCE IVP 08/13/19 21:30 08/13/19 21:31 DC 08/13/19 21:44 50 MCG Nitroglycerin 0.4 mg NEEDED PRN SL 08/13/19 21:00 08/13/19 20:54 0.4 MG Ondansetron HCl 4 mg ONCE ONCE IVP 08/13/19 21:30 08/13/19 21:31 DC 08/13/19 21:44 4 MG Potassium Chloride 40 meq ONCE ONCE PO 08/13/19 22:00 08/13/19 22:01 DC 08/13/19 21:55 40 MEQ Vital Signs/I&O 08/13/19 20:27 Temp 36.5 Pulse 93 Resp 18 B/P (MAP) 147/96 (113) Pulse Ox 97 O2 Delivery Room Air Blood Pressure Mean: 113 POS Progress Progress Note : Progress Note @2330 - Patient and family updated on lab and imaging results which shows an elevation of the second troponin. The patient is agreeable to transfer to [facility]. Case discussed with Dr. Soto who accepts the transfer to [facility]. Dr. Naylor (cardiology) paged. EKG : Comment EKG@2024 - normal sinus rhythm, rate of 91, normal axis, no acute ischemic findings noted, no STEMI, reviewed and interpreted by myself Departure Communication (Admissions) Time/Spoke to Admitting Phy: 23:36 Dr. Soto accepts the transfer to [facility]. Impression Primary Impression: Tobacco dependence Additional Impressions: Syncope Elevated troponin ACS (acute coronary syndrome) Disposition: ADMITTED INPATIENT Condition: Stable Admissions Decision to Admit Reason: Admit from ER (General) Decision to Admit/Date: Aug 13, 2019 Time/Decision to Admit Time: 23:36 Departure-Patient Inst. Referrals: RICHARD HERMAN MD (PCP/Family) Primary Care Physician NIYAH CANADA DO Aug 13, 2019 20:55 POS
[2019-08-13] MEDS ORDERED: NITROGLYCERIN 0.4 MG SL TABS BTL 25'S SL PRN (21:00)
[2019-08-13 21:12] LABS: ALANINE AMINOTRANSFERASE 17 U/L (0-55); ALBUMIN 4.6 GM/DL (3.2-4.5); ALKALINE PHOSPHATASE 116 U/L (40-136); BILIRUBIN,TOTAL 0.2 MG/DL (0.1-1.0); BUN/CREATININE RATIO 15; CALCIUM 9.7 MG/DL (8.5-10.1); CARBON DIOXIDE 20 MMOL/L (21-32); CHLORIDE 102 MMOL/L (98-107); CREATININE SERUM 0.75 MG/DL (0.60-1.30); GFR ESTIMATED > 60; GLUCOSE 142 MG/DL (70-105); MAGNESIUM 1.8 MG/DL (1.6-2.4); POTASSIUM 3.3 MMOL/L (3.6-5.0); SODIUM 138 MMOL/L (135-145); TOTAL PROTEIN 7.4 GM/DL (6.4-8.2)
--- NOTE | 2019-08-13 21:25 | Diagnostic Imaging Report ---
INDICATION: Chest pain. Comparison with 07/29/2019. FINDINGS: There has been improved aeration with both lungs now well aerated and clear. The heart is not enlarged. ICD pacer on the left is unchanged. No pneumothorax or pleural effusion. IMPRESSION: Normal portable chest with improved aeration when compared with previous exam. ICD pacer unchanged. Dictated by: Dictated on workstation # [id number]
[2019-08-13] MEDS ORDERED: fentaNYL INJECTION 100 MCG/2 ML AMP IVP ONE (21:30)
[2019-08-13] MEDS ORDERED: ONDANSETRON 4 MG/2 ML (SDV) Z0FRAN IVP ONE (21:30)
[2019-08-13 21:31] LABS: BASOPHILS % (AUTO) 0 % (0-10); EOSINOPHILS # (AUTO) 0.2 10^3/uL (0.0-0.3); EOSINOPHILS % (AUTO) 2 % (0-10); HEMATOCRIT 43 % (35-52); HEMOGLOBIN 14.7 G/DL (11.5-16.0); LYMPHOCYTES # (AUTO) 3.7 X 10^3 (1.0-4.0); LYMPHOCYTES % (AUTO) 34 % (12-44); MEAN CORPUSCULAR HEMOGLOBIN 32 PG (25-34); MEAN CORPUSCULAR HGB CONC 34 G/DL (32-36); MEAN CORPUSCULAR VOLUME 93 FL (80-99); MEAN PLATELET VOLUME 9.9 FL (7.4-10.4); MONOCYTES # (AUTO) 0.6 X 10^3 (0.0-1.0); MONOCYTES % (AUTO) 6 % (0-12); NEUTROPHILS # (AUTO) 6.3 X 10^3 (1.8-7.8); NEUTROPHILS % (AUTO) 58 % (42-75); PLATELET COUNT 274 10^3/uL (130-400); WHITE BLOOD COUNT 10.8 10^3/uL (4.3-11.0)
[2019-08-13] MEDS ORDERED: KCL 20 MEQ TAB (K-DUR) PO ONE (22:00)
[2019-08-13] MEDS ORDERED: HYDROmorphone 2 MG/ML VIAL (DILAUDID) IV ONE (23:45)
[2019-08-13] MEDS ORDERED: HEParin 1000 UNIT/ML (10ML VIAL) FOR BOLUS IV ONE (23:47)
[2019-08-13] MEDS ORDERED: HEParin DRIP 25000 UNIT/500ML 500 ML IV ONE (23:47)
[2019-08-14] VITALS (17 sets, daily range): BP systolic 109–162; BP diastolic 69–113
[2019-08-14] MEDS ORDERED: LORazepam INJ 2 MG/ML (ATIVAN) VIAL IVP ONE (00:45)
[2019-08-14] MEDS ORDERED: NITROGLYCERIN 0.4 MG SL TABS BTL 25'S SL PRN (02:30)
[2019-08-14] MEDS ORDERED: CATHETER FLUSH 10 ML SYR IV PRN ×2 (02:30→09:00)
[2019-08-14] MEDS ORDERED: HEParin DRIP 25000 UNIT/500ML 500 ML IV SCH (02:53)
[2019-08-14] MEDS ORDERED: HEParin 1000 UNIT/ML (10ML VIAL) FOR BOLUS IV PRN (03:00)
[2019-08-14] MEDS: fentaNYL INJECTION 100 MCG/2 ML AMP IV PRN ×7 (03:02→22:24)
[2019-08-14 05:46] LABS: BASOPHILS % (AUTO) 0 % (0-10); EOSINOPHILS # (AUTO) 0.2 10^3/uL (0.0-0.3); EOSINOPHILS % (AUTO) 2 % (0-10); HEMATOCRIT 41 % (35-52); HEMOGLOBIN 13.6 G/DL (11.5-16.0); LYMPHOCYTES # (AUTO) 4.5 X 10^3 (1.0-4.0); LYMPHOCYTES % (AUTO) 45 % (12-44); MEAN CORPUSCULAR HEMOGLOBIN 31 PG (25-34); MEAN CORPUSCULAR HGB CONC 33 G/DL (32-36); MEAN CORPUSCULAR VOLUME 94 FL (80-99); MONOCYTES # (AUTO) 0.6 X 10^3 (0.0-1.0); MONOCYTES % (AUTO) 6 % (0-12); NEUTROPHILS # (AUTO) 4.8 X 10^3 (1.8-7.8); NEUTROPHILS % (AUTO) 48 % (42-75); PLATELET COUNT 237 10^3/uL (130-400); RED CELL DISTRIBUTION WIDTH 13.3 % (10.0-14.5); WHITE BLOOD COUNT 10.1 10^3/uL (4.3-11.0)
--- NOTE | 2019-08-14 05:52 | Pulmonary Consultation ---
History of Present Illness History of Present Illness Date of Consultation 08/14/19 05:48 Time Seen by Provider: 09:48 Date of Admission History of Present Illness 49yo with hx of HTN, pacemaker, presented to ED with chest pain. She reports that the pain started after she was in an argument with a family member. She says that it feels like pressure. It has not resolved since it started yesterday. She says that it does not radiate. She denies any pleuritic component. She denies diaphoresis, nausea, and vomiting. She denies fevers and chills. She denies abdominal pain. She reports having a cath in March which was normal. Allergies and Home Medications Allergies Coded Allergies: aspirin (Verified Allergy, Unknown, 03/07/19) morphine (Verified Allergy, Unknown, 04/21/19) Patient states is not allergic to Morphine Home Medications Albuterol Sulfate 1 Puff Puff, 2 PUFF INH Q4H PRN for SHORTNESS OF BREATH, (Reported) Amlodipine Besylate 10 Mg Tablet, 10 MG PO HS, (Reported) Clonidine HCl 0.1 Mg Tablet, 0.1 MG PO BID, (Reported) Cyclobenzaprine HCl 10 Mg Tablet, 10 MG PO BID, (Reported) Diphenhydramine HCl 25 Mg Capsule, 50 MG PO HS, (Reported) Fluoxetine HCl 20 Mg Capsule, 20 MG PO BID, (Reported) Lisinopril 20 Mg Tablet, 20 MG PO HS, (Reported) Metoprolol Succinate 50 Mg Tab.er.24h, 50 MG PO BID, (Reported) Spironolactone 25 Mg Tablet, 25 MG PO DAILY, (Reported) Past Hvtgsis-Xcjsog-Ezozpc Hx Past Med/Social Hx: Reviewed Nursing Past Med/Soc Hx Patient Social History Alcohol Use: Denies Use Recreational Drug Use: No Type Used: Cigarettes 2nd Hand Smoke Exposure: Yes Recent Foreign Travel: No Contact w/Someone Who Travel: No Recent Infectious Disease Expo: No Recent Hopitalizations: No Physical Abuse: No Sexual Abuse: No Mistreated: No Immunizations Up To Date Tetanus Booster (TDap): Unknown Date of Pneumonia Vaccine: Aug 14, 2016 Date of Influenza Vaccine: Jul 15, 2019 Seasonal Allergies Seasonal Allergies: No Past Medical History Surgeries: Yes Defibrillator, Gallbladder, Hysterectomy, Pacemaker, 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 Respiratory: No Cardiac: Yes (pacemaker/defib) Heart Attack, Hypertension 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 0oz. 90.116883db; 29.75 BMI Method:Stated Exam Exam Vital Signs Date Time Temp Pulse Resp B/P (MAP) Pulse Ox O2 Delivery O2 Flow Rate FiO2 08/14/19 05:02 81 21 94 Nasal Cannula 2.00 08/14/19 05:00 74 14 109/77 (88) 88 Room Air 08/14/19 04:00 95 Room Air 08/14/19 04:00 76 122/84 (97) 95 Room Air 08/14/19 03:30 78 15 134/83 (100) 93 Room Air 08/14/19 03:15 80 15 157/113 (128) 89 Room Air 08/14/19 03:00 80 12 139/109 (119) 95 Room Air 08/14/19 02:45 83 17 159/96 (117) 94 Room Air 08/14/19 02:30 82 136/98 (111) 94 Room Air 08/14/19 02:15 90 145/97 (113) 94 Room Air 08/14/19 02:13 36.5 86 18 152/108 95 Room Air 08/14/19 02:09 36.5 86 18 152/108 (123) 95 Room Air 08/14/19 02:09 90 08/14/19 01:11 100 18 160/100 96 Room Air 08/13/19 20:27 36.5 93 18 147/96 (113) 97 Room Air Height & Weight Height: 5'7.00" Weight: 200lbs. 0oz. 90.313393bv; 29.75 BMI Method:Stated General Appearance: No Apparent Distress, WD/WN HEENT: PERRL/EOMI, Pharynx Normal Neck: Full Range of Motion, Normal Inspection Respiratory: Chest Non Tender, Lungs Clear, Normal Breath Sounds, No Accessory Muscle Use Cardiovascular: Regular Rate, Rhythm, No Edema, No Murmur Capillary Refill: Less Than 3 Seconds Extremity: Normal Capillary Refill, Non Tender, No Calf Tenderness Neurologic/Psychiatric: Alert, Oriented x3, No Motor/Sensory Deficits, Normal Mood/Affect Skin: Normal Color, Warm/Dry Results Lab Laboratory Tests 08/13/19 20:30 Assessment/Plan Assessment/Plan Tobacco dependance with probable COPD -Out pt testing -Repeat labs pending Nocturnal hypoxia per RN -Out pt PSG --Currently on 2 liter currently elevated troponin with CP -Cardiology following SUBHA CLARK DO Aug 14, 2019 05:52 POS
[2019-08-14 06:17] LABS: BUN/CREATININE RATIO 17; CALCIUM 8.8 MG/DL (8.5-10.1); CARBON DIOXIDE 21 MMOL/L (21-32); CHLORIDE 107 MMOL/L (98-107); CREATININE SERUM 0.72 MG/DL (0.60-1.30); GFR ESTIMATED > 60; GLUCOSE 103 MG/DL (70-105); POTASSIUM 3.7 MMOL/L (3.6-5.0); SODIUM 140 MMOL/L (135-145)
[2019-08-14 06:19] LABS: MAGNESIUM 1.8 MG/DL (1.6-2.4)
[2019-08-14] MEDS: CATHETER FLUSH 10 ML SYR IV SCH ×3 (06:20→20:12)
--- NOTE | 2019-08-14 07:05 | Diagnostic Imaging Report ---
INDICATION: Short of breath. EXAMINATION: Chest, 08/14/2019. COMPARISON: 08/13/2019. FINDINGS: Left pacemaker is stable. Heart unchanged. Pulmonary vasculature minimally prominent. No infiltrates, effusions or pneumothorax. IMPRESSION: 1. Question mild pulmonary vascular congestion. Otherwise stable chest. Dictated by: Dictated on workstation # [id number]
[2019-08-14] MEDS ORDERED: REGADENOSON 0.4 MG/5 ML SYR (LEXISCAN) IV ONE (08:45)
[2019-08-14] MEDS ORDERED: ENOXAPARIN 40 MG/0.4 ML (LOVENOX) SYR ONE (08:59)
[2019-08-14] MEDS ORDERED: IOHEXOL 350 MG/ML 100 ML (OMNIPAQUE 350) VIAL IV ONE (09:00)
[2019-08-14] MEDS ORDERED: PANTOPRAZOLE 40 MG (PROTONIX) VIAL ONE (09:00)
[2019-08-14] MEDS ORDERED: meTOproloL SUCCINATE 50 MG (TOPROL XL) TAB PO ONE (09:00)
[2019-08-14] MEDS ORDERED: NS 100 ML (IVPB) BAG IV ONE (09:00)
[2019-08-14] MEDS ORDERED: CLOPIDOGREL 75 MG (PLAVIX) TABLET ONE (09:00)
[2019-08-14] MEDS ORDERED: HOLD METFORMIN - RECEIVED CONTRAST 20 ML VIAL IV SCH (09:00)
[2019-08-14] MEDS: ENOXAPARIN 40 MG/0.4 ML (LOVENOX) SYR SC SCH (09:03)
[2019-08-14] MEDS: PANTOPRAZOLE 40 MG (PROTONIX) VIAL IV SCH (09:03)
[2019-08-14] MEDS: meTOproloL SUCCINATE 50 MG (TOPROL XL) TAB PO SCH (09:04)
[2019-08-14] MEDS: CLOPIDOGREL 75 MG (PLAVIX) TABLET PO SCH (09:04)
--- NOTE | 2019-08-14 09:10 | NUR ---
RECEIVED ORDER FROM DR. GODDARD TO D/C HEPARIN, NO RECEIVED FOR LOVENOX 40, MEDICATION GIVEN AT THIS TIME, ET HEPARIN GTT D/C'D PER PHYSICIAN ORDER.
--- NOTE | 2019-08-14 09:41 | Diagnostic Imaging Report ---
PROCEDURE: CT angiography of the chest with contrast. TECHNIQUE: Multiple contiguous axial images were obtained through the chest after uneventful bolus administration of intravenous contrast. 3D reconstructed CTA MIP acquisitions were also performed. Auto Exposure Controls were utilized during the CT exam to meet ALARA standards for radiation dose reduction. INDICATION: Chest pain. Correlation is made with prior CT from 02/27/2019. Cardiac pacer is in place. The thoracic aorta is normal in caliber. No dissection is detected. Masslike area involving the mid thoracic esophagus is again noted and appear similar to exam from February. Esophagus above and below this level remains unremarkable. No hilar or mediastinal lymphadenopathy apart from this is seen. No pericardial or pleural fluid is detected. There is some thickening of the major fissure on the left. There are areas of infiltrate or atelectasis in the posterior right lower lobe and to a lesser degree posterior left lower lobe. No discrete parenchymal mass is identified. Upper abdomen is unremarkable. IMPRESSION: 1. No evidence of thoracic aortic aneurysm or dissection. 2. Continued masslike soft tissue density in the region of the mid thoracic esophagus, similar to CT chest from 02/27/2019. Correlation with endoscopy would be recommended if not already performed. 5. Bibasilar pulmonary infiltrate/atelectasis, right greater. Dictated by: Dictated on workstation # [id number]
--- NOTE | 2019-08-14 10:17 | Consultation-Cardiology ---
HPI-Cardiology Cardiology Consultation: Date of Consultation 08/14/19 Time Seen by a Provider: 08:30 Date of Admission Attending Physician Tushar Soto MD Admitting Physician John Wilde MD Consulting Physician ANDRE GODDARD MD, MA, FACP, FACC, FSCAI, CCDS HPI: Chief Complaint: CC: Chest discomfort HPI 49 yo woman with onset of chest pain last night after an argument with daughter: midsternal and transthoracic, mod to severe, some shortness of breath with it, w/o any relieving factors, continuous for more than twelve hours, still persistent at mild intensity, not experienced before, feeling of sharp pain to heavy pressure. Chronic, slowly progressive, exertional shortness of breath. No leg swelling. No palp. Did have a syncopal episode, last night, lasting several seconds, lay on the ground, did not hurt self, was witnessed by family. Went to [facility] ER. First troponin at [facility] (by their assay) was negative; second was minimally elevated; was transferred to this hosp; troponin on arrival at this hosp was negative Review of Systems-Cardiology Review of Systems Constitutional: malaise, tiredness; No weight loss, No weight gain Eyes: No vision change Ears/Nose/Throat: No ear discharge, No nasal drainage, No recent hearing loss Respiratory: As described under HPI Cardiovascular: As described under HPI Gastrointestinal: No diarrhea, No nausea Genitourinary: No dysuria, No hematuria, No urine frequency changes Musculoskeletal: No back pain, No joint pain Skin: No rash, No ulcerations Psychiatric/Neurological: syncope (see above); No seizure, No focal weakness Hematologic: No bleeding abnormalities All Other Systems Reviewed Negative Unless Noted: Yes CNF-Zeomyx-Eqiugo Hx Patient Social History Alcohol Use: Denies Use Recreational Drug Use: No Type Used: Cigarettes 2nd Hand Smoke Exposure: Yes Recent Foreign Travel: No Recent Infectious Disease Expo: No Immunizations Up To Date Tetanus Booster (TDap): Unknown Date of Pneumonia Vaccine: Aug 14, 2016 Date of Influenza Vaccine: Jul 15, 2019 Past Medical History PMH As described under Assessment. Family Medical History Family Medical History: Does not provide fam h/o early CAD or SCD Allergies and Home Medications Allergies Coded Allergies: aspirin (Verified Allergy, Unknown, 03/07/19) morphine (Verified Allergy, Unknown, 04/21/19) Patient states is not allergic to Morphine Home Medications Azithromycin 250 Mg Tablet, 250 MG PO UD TAKE 2 TABLETS TODAY, THEN TAKE 1 TABLET DAILY FOR 4 MORE DAYS Prescribed by: CRAIG KHANNA on 07/29/192014 Benzonatate 100 Mg Capsule, 200 MG PO TID PRN for COUGH Prescribed by: CRAIG KHANNA on 07/29/192014 Cephalexin 500 Mg Tablet, 500 MG PO QID Prescribed by: LAMIN ADLER on 02/27/192321 Cyclobenzaprine HCl 10 Mg Tablet, 10 MG PO HS PRN for SPASMS Prescribed by: LAMIN ADLER on 02/27/192321 Furosemide 40 Mg Tablet, 40 MG PO DAILY Prescribed by: LAMIN ADLER on 07/21/192 Guaifenesin/Codeine Phosphate 473 Ml Liquid, 10 ML PO QID PRN for COUGH Prescribed by: CRAIG KHANNA on 07/29/192033 Methylprednisolone 4 Mg Tab.ds.pk, 4 MG PO UD PER DOSE PACK INSTRUCTIONS Prescribed by: CRAIG KHANNA on 07/29/192014 Patient Home Medication List Home Medication List Reviewed: Yes Physical Exam-Cardiology Physical Exam Vital Signs/I&O 08/14/19 08/14/19 08/14/19 08/14/19 01:11 02:09 02:09 02:13 Temp 36.5 36.5 Pulse 100 90 86 86 Resp 18 18 18 B/P (MAP) 160/100 152/108 (123) 152/108 Pulse Ox 96 95 95 O2 Delivery Room Air Room Air Room Air 08/14/19 08/14/19 08/14/19 08/14/19 02:15 02:30 02:45 03:00 Pulse 90 82 83 80 Resp 17 12 B/P (MAP) 145/97 (113) 136/98 (111) 159/96 (117) 139/109 (119) Pulse Ox 94 94 94 95 O2 Delivery Room Air Room Air Room Air Room Air 08/14/19 08/14/19 08/14/19 08/14/19 03:15 03:30 04:00 04:00 Pulse 80 78 76 Resp 15 15 B/P (MAP) 157/113 (128) 134/83 (100) 122/84 (97) Pulse Ox 89 93 95 95 O2 Delivery Room Air Room Air Room Air Room Air 08/14/19 08/14/19 08/14/1930/19 05:00 05:02 06:00 07:00 Pulse 74 81 72 71 Resp 14 21 22 B/P (MAP) 109/77 (88) 130/82 (98) Pulse Ox 88 94 95 O2 Delivery Room Air Nasal Cannula Nasal Cannula O2 Flow Rate 2.00 2.00 08/14/19 08/14/19 08/14/19 07:30 08:00 09:00 Temp 36.3 Pulse Ox 97 O2 Delivery Nasal Cannula Room Air O2 Flow Rate 2.00 Capillary Refill : Less Than 3 Seconds Constitutional: AAO x 3, well-developed, well-nourished HEENT: other (edentulous jawas), EOMI, hearing is well preserved; No xanthelasmas are seen Neck: carotid pulses are 2 + bilaterally, with good upstrokes Respiratory: No accessory muscle use; other (good bilat air entry; somewhat prolonged exp phase) Gastrointestinal: No tender; soft; No guarding, No rebound; audible bowel sounds Extremities: No clubbing, No cyanosis, No significant edema Neurologic/Psychiatric: oriented x 3, other (moves all limbs equally) Skin: No rash on exposed areas, No ulcerations on exposed areas Data Review Labs Laboratory Tests 08/13/19 20:30: White Blood Count 10.8, Red Blood Count 4.64, Hemoglobin 14.7, Hematocrit 43, Mean Corpuscular Volume 93, Mean Corpuscular Hemoglobin 32, Mean Corpuscular Hemoglobin Concent 34, Red Cell Distribution Width 13.0, Platelet Count 274, Mean Platelet Volume 9.9, Neutrophils (%) (Auto) 58, Lymphocytes (%) (Auto) 34, Monocytes (%) (Auto) 6, Eosinophils (%) (Auto) 2, Basophils (%) (Auto) 0, Neutrophils # (Auto) 6.3, Lymphocytes # (Auto) 3.7, Monocytes # (Auto) 0.6, Eosinophils # (Auto) 0.2, Basophils # (Auto) 0.0, Prothrombin Time 12.2, INR Comment 0.9, Activated Partial Thromboplast Time 26, Sodium Level 138, Potassium Level 3.3L, Chloride Level 102, Carbon Dioxide Level 20L, Anion Gap 16H, Blood Urea Nitrogen 11, Creatinine 0.75, Estimat Glomerular Filtration Rate > 60, BUN/Creatinine Ratio 15, Glucose Level 142H, Calcium Level 9.7, Corrected Calcium , Magnesium Level 1.8, Total Bilirubin 0.2, Aspartate Amino Transf (AST/SGOT) 13, Alanine Aminotransferase (ALT/SGPT) 17, Alkaline Phosphatase 116, Myoglobin 21.0, Troponin I 0.30, Pro-B-Type Natriuretic Peptide 135.7H, Total Protein 7.4, Albumin 4.6H 08/13/19 22:50: Troponin I 0.59*H 08/14/19 02:35: Troponin I < 0.028 08/14/19 05:34: Magnesium Level 1.8, Phosphorus Level 3.0 08/14/19 05:37: White Blood Count 10.1, Red Blood Count 4.37, Hemoglobin 13.6, Hematocrit 41, Mean Corpuscular Volume 94, Mean Corpuscular Hemoglobin 31, Mean Corpuscular Hemoglobin Concent 33, Red Cell Distribution Width 13.3, Platelet Count 237, Mean Platelet Volume 10.0, Neutrophils (%) (Auto) 48, Lymphocytes (%) (Auto) 45H , Monocytes (%) (Auto) 6, Eosinophils (%) (Auto) 2, Basophils (%) (Auto) 0, Neutrophils # (Auto) 4.8, Lymphocytes # (Auto) 4.5H, Monocytes # (Auto) 0.6, Eosinophils # (Auto) 0.2, Basophils # (Auto) 0.0, Activated Partial Thromboplast Time 58H, Sodium Level 140, Potassium Level 3.7, Chloride Level 107, Carbon Dioxide Level 21, Anion Gap 12, Blood Urea Nitrogen 12, Creatinine 0.72, Estimat Glomerular Filtration Rate > 60, BUN/Creatinine Ratio 17, Glucose Level 103, Calcium Level 8.8 Laboratory Tests 08/13/19 20:30 08/14/19 05:37 A/P-Cardiology Assessment/Admission Diagnosis Chest discomfort of undetermined etiology. No evidence of Ac [place] No troponin elevation. Troponins since presentation (within a span of less than 12 hours): normal, minimally elevated, normal. This does not fit any physiologic pattern H/o pacemaker implanted in 1988 and subsequently has undergone pulse gen change. She does not know the reason for pacemaker. She thinks it a pacemaker & ICD. She states it is followed by Dr Conn in [place], [place] Reports card cath in or around March [address] Rodriguez at [place], [place]. Was told there were no significant problems Chronic tobacco use Discussion and Recomendations * Treat with antiplatelet agents and bb. She reports allergy/intolerance to ASA. Consequently, we are treating with clopidogrel * Pulm CT angio to eval for PE * Echo to eval for CM * MPI to eval for cor ischemia * We are trying to obtain cardiac recs from [place], [place] * She has been advised to refrain from tobacco use * Monitor labs Clinical Quality Measures AMI/AHF: ASA po Prior to arrival: No (patient has an allergy to aspirin which caused fluid to accumulate around her heart) DVT/VTE Risk/Contraindication: Risk Factor Score Per Nursin RFS Level Per Nursing on Admit: 2=Moderate ANDRE GODDARD MD FACP FAC CCDS Aug 14, 2019 10:17 POS
[2019-08-14] MEDS ORDERED: FLUO20CA25 PO (10:51)
[2019-08-14] MEDS ORDERED: SPIR25TA5 PO (10:51)
[2019-08-14] MEDS ORDERED: CLON0.1T PO (10:51)
[2019-08-14] MEDS ORDERED: RT-ALBUINH INH (10:51)
[2019-08-14] MEDS ORDERED: METO-370 PO (10:51)
[2019-08-14] MEDS ORDERED: AMLO10TA7 PO (10:51)
[2019-08-14] MEDS ORDERED: LISI-552 PO (10:51)
[2019-08-14] MEDS ORDERED: CYCL10TA9 PO (10:54)
[2019-08-14] MEDS ORDERED: DIPH25CA79 PO (10:54)
--- NOTE | 2019-08-14 10:56 | NUR ---
SPOKE WITH THE PATIENT ABOUT HER MEDICATIONS. SHE STATES SHE HAS FINISHED ALL THE PRESCRIPTIONS FILLED AT [facility] MID JULY. WE WENT OVER THE ONES FILLED AT [facility] AND SHE VERIFIED HOW SHE TAKES THEM. SHE TAKES 2 BENADRYL OTC AT BEDTIME.
--- NOTE | 2019-08-14 15:30 | History & Physical-Hospitalist ---
History of Present Illness HPI/Chief Complaint Carmita Goss is a 49yoF with PMH HTN, pacemaker (unclear indication), who presented with chest pain. She reports that the pain started after she was in an argument with a family member. She says that it feels like pressure. It has not resolved since it started yesterday. She says that it does not radiate. She denies any pleuritic component. She denies diaphoresis, nausea, and vomiting. She denies fevers and chills. She denies abdominal pain. She reports having a cath in March which was normal. Source: patient Exam Limitations: no limitations Date Seen 08/14/19 Time Seen by a Provider: 08:45 Attending Physician Tushar Soto MD PCP John Wilde MD Referring Physician Date of Admission Aug 13, 2019 at 23:45 Home Medications & Allergies Home Medications Reviewed patient Home Medication Reconciliation performed by pharmacy medication reconciliations dental lab technician and/or nursing. Patients Allergies have been reviewed. Allergies Allergies Coded Allergies aspirin (Verified Allergy, Unknown, 03/07/19) morphine (Verified Allergy, Unknown, 04/21/19) Patient states is not allergic to Morphine Past Berecos-Zvwvzn-Nngsjc Hx Past Med/Social Hx: Reviewed Nursing Past Med/Soc Hx Patient Social History Alcohol Use: Denies Use Recreational Drug Use: No Type Used: Cigarettes 2nd Hand Smoke Exposure: Yes Recent Foreign Travel: No Contact w/other who traveled: No Recent Hopitalizations: No Recent Infectious Disease Expo: No Immunizations Up To Date Tetanus Booster (TDap): Unknown Date of Pneumonia Vaccine: Aug 14, 2016 Date of Influenza Vaccine: Jul 15, 2019 Seasonal Allergies Seasonal Allergies: No Past Medical History Surgeries: Defibrillator, Gallbladder, Hysterectomy, Pacemaker, 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 Cardiac: Heart Attack, Hypertension : No Hysterectomy, 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 History of Blood Disorders: No Review of Systems Constitutional: no symptoms reported EENTM: no symptoms reported Respiratory: no symptoms reported Cardiovascular: chest pain Gastrointestinal: no symptoms reported Genitourinary: no symptoms reported Musculoskeletal: no symptoms reported Skin: no symptoms reported Psychiatric/Neurological: Anxiety Physical Exam Physical Exam Vital Signs Vital Signs - First Documented 08/13/19 08/14/19 20:27 05:02 Temp 36.5 Pulse 93 Resp 18 B/P (MAP) 147/96 (113) Pulse Ox 97 O2 Delivery Room Air O2 Flow Rate 2.00 Capillary Refill : Less Than 3 Seconds Height, Weight, BMI Height: 5'7.00" Weight: 200lbs. 0oz. 90.282794xo; 29.75 BMI Method:Stated General Appearance: No Apparent Distress, WD/WN HEENT: PERRL/EOMI, Pharynx Normal Neck: Normal Inspection, Supple Respiratory: Chest Non Tender, Lungs Clear, Normal Breath Sounds, No Respiratory Distress Cardiovascular: Regular Rate, Rhythm, No Edema, No Murmur Gastrointestinal: Normal Bowel Sounds, Non Tender, Soft Extremity: Normal Inspection, Non Tender, No Pedal Edema Neurologic/Psychiatric: Alert, Oriented x3, No Motor/Sensory Deficits, Normal Mood/Affect Skin: Normal Color, Warm/Dry Lymphatic: No Adenopathy Results Results/Procedures Labs Laboratory Tests 08/13/19 20:30 08/14/19 05:37 Patient resulted labs reviewed. Imaging: Reviewed Imaging Report Assessment/Plan Admission Diagnosis NSTEMI Admission Status: Inpatient Order (span 2 midnights) Reason for Inpatient Admission: NSTEMI requiring inpatient cardiac evaluation Assessment and Plan NSTEMI HTN -Troponin 0.3 on arrival, trended up to 0.59, then normalized -Started on Heparin gtt overnight, now discontinued -Allergic to ASA -Started on Plavix -Cardiology consulted, appreciate assistance -Pacemaker interrogated -Planning for CTA and TTE today -Lexiscan tomorrow -Continue Toprol -Will add home antihypertensives if needed Nicotine dependence, cigarettes, uncomplicated -Nicotine patch as needed DVT Prophylaxis: Lovenox Diagnosis/Problems Diagnosis/Problems (1) NSTEMI (non-ST elevation myocardial infarction) Status: Acute (2) HTN (hypertension) Status: Chronic Qualifiers: Hypertension type: essential hypertension Qualified Codes: I10 - Essential (primary) hypertension (3) Pacemaker Status: Chronic (4) Nicotine dependence, cigarettes, uncomplicated Status: Chronic Clinical Quality Measures AMI/AHF: ASA po Prior to arrival: No (patient has an allergy to aspirin which caused fluid to accumulate around her heart) DVT/VTE Risk/Contraindication: Risk Factor Score Per Nursin RFS Level Per Nursing on Admit: 2=Moderate HEATHER PULLIAM MD Aug 14, 2019 15:30 POS
--- NOTE | 2019-08-14 17:19 | NUR ---
received report from rayo cowart icu for patient. patient not yet on floor
--- NOTE | 2019-08-14 17:35 | NUR ---
patient now in room. took over care at this time Addendum: 08/14/19 at 1812 by PATRICK JERNIGAN RN I AGREE WITH THE ASSESSMENT DONE IN ICU
[2019-08-15] MEDS: fentaNYL INJECTION 100 MCG/2 ML AMP IV PRN ×7 (01:34→18:02)
[2019-08-15 04:20] VITALS: BP 145/78
[2019-08-15] MEDS: CATHETER FLUSH 10 ML SYR IV SCH ×2 (05:13→13:12)
[2019-08-15 07:18] LABS: CHOLESTEROL 250 MG/DL (< 200); HDL CHOLESTEROL 36 MG/DL (40-60); TRIGLYCERIDES 193 MG/DL (<150); VLDL CHOLESTEROL 39 MG/DL (5-40)
[2019-08-15 08:10] VITALS: BP 145/78
[2019-08-15] MEDS ORDERED: REGADENOSON 0.4 MG/5 ML SYR (LEXISCAN) IV ONE (08:13)
[2019-08-15 08:29] VITALS: BP 152/94
--- NOTE | 2019-08-15 08:41 | Pulmonary Progress Note ---
Subjective Time Seen by a Provider: 08:47 Subjective/Events-last exam No complications noted. Sepsis Event Evaluation Height, Weight, BMI Height: 5'7.00" Weight: 200lbs. 0oz. 90.114982jg; 29.75 BMI Method:Stated Exam Exam Vital Signs Date Time Temp Pulse Resp B/P (MAP) Pulse Ox O2 Delivery O2 Flow Rate FiO2 08/15/19 04:20 36.6 74 16 145/78 (100) 95 Room Air 08/15/19 01:00 72 08/14/19 23:51 36.3 74 20 145/84 (104) 93 Room Air 08/14/19 21:00 Room Air 08/14/19 20:06 36.6 73 20 134/77 (96) 94 Room Air 08/14/19 19:00 72 08/14/19 17:29 36.5 82 20 162/74 (103) 96 Room Air 08/14/19 16:00 97 Room Air 08/14/19 16:00 36.3 08/14/19 16:00 78 25 158/101 (120) 96 Room Air 08/14/19 13:00 73 08/14/19 12:00 97 Room Air 08/14/19 12:00 36.4 75 11 133/69 (90) 96 Room Air 08/14/19 09:00 Room Air I & O 08/15/19 07:00 Intake Total 1620 ml Output Total 500 ml Balance 1120 ml Height & Weight Height: 5'7.00" Weight: 200lbs. 0oz. 90.055195bv; 29.75 BMI Method:Stated General Appearance: No Apparent Distress, WD/WN HEENT: PERRL/EOMI, Pharynx Normal Neck: Normal Inspection, Supple Respiratory: Chest Non Tender, Lungs Clear, Normal Breath Sounds, No Respiratory Distress Cardiovascular: Regular Rate, Rhythm, No Edema, No Murmur Capillary Refill: Less Than 3 Seconds Extremity: Normal Inspection, Non Tender, No Pedal Edema Neurologic/Psychiatric: Alert, Oriented x3, No Motor/Sensory Deficits, Normal Mood/Affect Skin: Normal Color, Warm/Dry Lymphatic: No Adenopathy Results Lab Laboratory Tests 08/13/19 20:30 08/14/19 05:37 Assessment/Plan Assessment/Plan Tobacco dependance with probable COPD -Out pt testing -will check ambulatory desat test for possible home 02 Atelectasis -Monitor Esophagial mass per CT scan -Consider surgical consultation for EGD. -I discussed with Dr. Russo who is going to talk with surgery. Nocturnal hypoxia per RN -Out pt PSG elevated troponin with CP -Cardiology following SUBHA CLARK DO Aug 15, 2019 08:41 POS
[2019-08-15 08:42] VITALS: BP 140/94
[2019-08-15] MEDS ORDERED: ENOXAPARIN 40 MG/0.4 ML (LOVENOX) SYR SC SCH (09:00)
[2019-08-15] MEDS: ENOXAPARIN 40 MG/0.4 ML (LOVENOX) SYR SC SCH (09:52)
[2019-08-15] MEDS: PANTOPRAZOLE 40 MG (PROTONIX) VIAL IV SCH (09:52)
[2019-08-15] MEDS: CLOPIDOGREL 75 MG (PLAVIX) TABLET PO SCH (09:53)
[2019-08-15] MEDS: meTOproloL SUCCINATE 50 MG (TOPROL XL) TAB PO SCH (09:53)
--- NOTE | 2019-08-15 11:40 | NUR ---
Spo02 didnt drop below 94 on 6 min walk Addendum: 08/15/19 at 1140 by FARIHA CLARK RT Amended: Links added.
--- NOTE | 2019-08-15 12:29 | Progress Note - Cardiology ---
Cardiology SOAP Progress Note Subjective: No cp or palp or syncope since admission Has chronic, generalized, body pain Chronic, moderate exertional shortness of breath Objective: I&O/Vital Signs 08/15/19 08/15/19 08/15/19 08/15/19 01:00 04:20 06:56 08:10 Temp 36.6 36.4 Pulse 72 74 72 79 Resp 16 20 B/P (MAP) 145/78 (100) 145/78 (100) Pulse Ox 95 91 O2 Delivery Room Air Room Air 08/15/19 08/15/19 08/15/19 08/15/19 08:29 08:42 09:00 11:36 Pulse 79 112 B/P (MAP) 152/94 (113) 140/94 (109) Pulse Ox 98 98 O2 Delivery Room Air O2 Flow Rate 0.00 08/15/19 00:00 Intake Total 1520 ml Balance 1520 ml Weight (Pounds): 200 Weight (Ounces): 0 Weight (Calculated Kilograms): 90.057636 Constitutional: AAO x 3, well-developed, well-nourished Respiratory: No accessory muscle use; other (good bilat air entry; somewhat prolonged exp phase) Gastrointestional: No tender; soft; No guarding, No rebound; audible bowel sounds Extremities: No clubbing, No cyanosis, No significant edema Neurologic/Psychiatric: oriented x 3, other (moves all limbs equally) Skin: No rash on exposed areas, No ulcerations on exposed areas Results/Procedures: Labs Laboratory Tests 08/15/19 05:31: Triglycerides Level 193H, Cholesterol Level 250H, LDL Cholesterol Direct 190H, VLDL Cholesterol 39, HDL Cholesterol 36L A/P: Assessment: Chest discomfort of undetermined etiology. No evidence of Ac [place] Syncope of undetermined etiology. Interrogation of device on 08/14/19 did not show any treated events or arrhythmia to account for syncope MPI of 08/15/19: no ischemia or infarction, normal LV function False posive troponin elevation at 22:50 on 08/13/19. Troponins since presentation (within a span of less than 12 hours): normal, minimally elevated, normal. This does not fit any physiologic pattern. Therefore, the second troponin is a false positive elevation Card cath of 03/05/19 (Dr Corey at [facility]): mild CAD, normal systolic function, LVEDP not reported S/p single chamber ICD [place] [address] Conn in [place], [place] for nonsustained polymorphic VT, sinus pauses and prolonged QT. Replaced in Sep [address] Conn (last interrogation in Jul 2019) Chronic tobacco use Plan: * We obtained, reviewed and discussed with her her cardiac records form [facility] (summarized above) * We discussed with her the results of her CV w/u at this hosp * We have advised outpt f/u with her regular production control coordinator and with her pcp * We have advised against driving or operating machinery (given symptoms of syncope with which she presented) until cleared by her production control coordinator * She has been advised to refrain from tobacco use Clinical Quality Measures AMI/AHF: ASA po Prior to arrival: No (patient has an allergy to aspirin which caused fluid to accumulate around her heart) ANDRE GODDARD MD FACP FAC CCDS Aug 15, 2019 12:29 POS
[2019-08-15 12:30] VITALS: BP 136/74
--- NOTE | 2019-08-15 14:20 | STRESS TEST ---
DATE OF SERVICE: 08/15/2019 RESTING AND POSTREGADENOSON TECHNETIUM-99M4 TETROFOSMIN SPECT CT IMAGING ORDERING PHYSICIAN: Floyd Gautam MD, [place], FACP, FACC. PRIMARY CARE PHYSICIAN: Dr. Wilde. ATTENDING PHYSICIAN: Tushar Soto MD. CLINICAL DIAGNOSIS: Chest discomfort. Baseline images were carried out after injection of 10.24 mCi of technetium-99m Tetrofosmin. This was followed by 0.4 mg regadenoson and 29.2 mCi of technetium-99m Tetrofosmin for stress imaging. The electrocardiogram showed sinus rhythm throughout the study. She has noted some cramping in the stomach following regadenoson infusion, which resolved in a few minutes. Overall, she tolerated the procedure well. Review of images at rest and following stress does not indicate any significant perfusion defects consistent with significant myocardial ischemia or infarction. Gated images show normal global left ventricular systolic function with a calculated ejection fraction of 83%. Left ventricular end diastolic volume is 46 mL. TID is absent (0.91). CONCLUSIONS: 1. No evidence of significant myocardial ischemia or infarction on this study. 2. Normal regional wall motion. 3. Normal global left ventricular systolic function with a calculated ejection fraction 83%. Job ID: [id number] DocumentID: [id number] Dictated Date: 08/15/2019 09:53:36 [employer] Date: 08/15/2019 14:20:44 Dictated By: FLOYD GAUTAM MD, [place], FACP, FACC,
[2019-08-15] MEDS ORDERED: PANT40TA3 PO (15:27)
[2019-08-15] MEDS ORDERED: ATOR40TA PO (15:27)
--- NOTE | 2019-08-15 15:36 | Discharge Summary ---
Discharge Summary Hospital Course Problems/Dx: (1) NSTEMI (non-ST elevation myocardial infarction) Status: Resolved (2) HTN (hypertension) Status: Chronic Qualifiers: Qualified Codes: I10 - Essential (primary) hypertension (3) Pacemaker Status: Chronic (4) Nicotine dependence, cigarettes, uncomplicated Status: Chronic (5) HLD (hyperlipidemia) Status: Chronic Qualifiers: Qualified Codes: E78.2 - Mixed hyperlipidemia (6) GERD (gastroesophageal reflux disease) Status: Chronic Qualifiers: Qualified Codes: K21.9 - Gastro-esophageal reflux disease without esophagitis (7) Non-cardiac chest pain Hospital Course Date of Admission: Aug 13, 2019 at 23:45 Admission Diagnosis : Chest pain Family Physician/Provider: John Wilde MD Date of Discharge: 08/15/19 Discharge Diagnosis: Non-cardiac chest pain Hospital Course: Carmita Goss is a 49yoF with PMH HTN who presented with chest pain. Her initial troponin was elevated but quickly returned to normal. Cardiology was consulted and believed this to be erroneous and non-physiologic. She underwent cardiac stress test which was normal. She underwent echocardiogram which was normal. She had a CTA which did not reveal any pulmonary embolism. It did however reveal a soft tissue mass adjacent to her esophagus. This was seen on previous imaging. This had been evaluated at an outside facility. General Surgery was consulted for further evaluation and will follow up with her as an outpatient. She was started on Lipitor for cholesterol and Pantoprazole for GERD. Labs and Pending Lab Test: Laboratory Tests 08/15/19 05:31: Triglycerides Level 193H, Cholesterol Level 250H, LDL Cholesterol Direct 190H, VLDL Cholesterol 39, HDL Cholesterol 36L Home Meds Active Pantoprazole Sodium 40 Mg Tablet.dr 40 Mg PO DAILY 30 Days Lipitor (Atorvastatin Calcium) 40 Mg Tablet 40 Mg PO HS 30 Days Reported Benadryl (Diphenhydramine HCl) 25 Mg Capsule 50 Mg PO HS Cyclobenzaprine HCl 10 Mg Tablet 10 Mg PO BID Proair Hfa (Albuterol Sulfate) 1 Puff Puff 2 Puff INH Q4H PRN Fluoxetine HCl 20 Mg Capsule 20 Mg PO BID Amlodipine Besylate 10 Mg Tablet 10 Mg PO HS Metoprolol Succinate 50 Mg Tab.er.24h 50 Mg PO BID Spironolactone 25 Mg Tablet 25 Mg PO DAILY Lisinopril 20 Mg Tablet 20 Mg PO HS Clonidine HCl 0.1 Mg Tablet 0.1 Mg PO BID Assessment/Pt Instructions Take medications as prescribed. Follow up with Dr. Reeder, surgery. Discharge Planning: <30 minutes discharge planning Discharge Instructions Discharge Diet: No Restrictions Activity as Tolerated: Yes Discharge Physical Examination Vital Signs Vital Signs Date Time Temp Pulse Resp B/P (MAP) Pulse Ox O2 Delivery O2 Flow Rate FiO2 08/15/19 12:30 36.6 72 16 136/74 (94) 95 Room Air 08/15/19 11:36 0.00 General Appearance: No Apparent Distress, WD/WN HEENT: PERRL/EOMI, Pharynx Normal Respiratory: Lungs Clear, Normal Breath Sounds, No Respiratory Distress Cardiovascular: Regular Rate, Rhythm, No Edema, No Murmur Gastrointestinal: Normal Bowel Sounds, Non Tender, Soft Extremity: Normal Inspection, Non Tender, No Pedal Edema Skin: Normal Color, Warm/Dry Neurologic/Psychiatric: Alert, Oriented x3, No Motor/Sensory Deficits, Normal Mood/Affect Allergies: Coded Allergies: aspirin (Verified Allergy, Unknown, 03/07/19) morphine (Verified Allergy, Unknown, 04/21/19) Patient states is not allergic to Morphine Discharge Summary Date of Admission Aug 13, 2019 at 23:45 Date of Discharge Discharge Date: Aug 15, 2019 Discharge Time: 15:34 Admission Diagnosis NSTEMI Consults/Procedures Consulations Pulmonology, Cardiology, General Surgery Discharge Diagnosis Non-cardiac chest pain, esophageal mass (1) NSTEMI (non-ST elevation myocardial infarction) Status: Resolved (2) HTN (hypertension) Status: Chronic Qualifiers: Qualified Codes: I10 - Essential (primary) hypertension (3) Pacemaker Status: Chronic (4) Nicotine dependence, cigarettes, uncomplicated Status: Chronic Clinical Quality Measures AMI/AHF: ASA po Prior to arrival: No (patient has an allergy to aspirin which caused fluid to accumulate around her heart) DVT/VTE Risk/Contraindication: Risk Factor Score Per Nursin RFS Level Per Nursing on Admit: 2=Moderate HEATHER PULLIAM MD Aug 15, 2019 15:33 POS
--- NOTE | 2019-08-15 17:24 | HISTORY AND PHYSICAL ---
DATE OF SERVICE: ADMIT DATE: 08/13/2019. ATTENDING PHYSICIAN: Dr. John Wilde of [place]. HISTORY OF PRESENT ILLNESS: The patient is a 49-year-old female who presented to the ER [facility] [place] on 08/13/2019 at night with complaints of chest pain, shortness of breath. She reports that she got into an emotional dispute with family member and had passed out. This was witnessed by family members. She reports that she was unconscious for approximately 5 to 10 seconds. She has had a myocardial infarction in the past and currently has a pacemaker defibrillator. She reports that so far they have not found any cause why she had these symptoms and believe that is not cardiac at this time. She reports today that she does still have a chest pressure. She denies any numbness or tingling down her arms as well as no shortness of breath. She did have a CT scan, which did show a mass like soft tissue density in the region of the mid thoracic esophagus; however, was similar to a CT of the chest on 02/27/2019. She reports that she did have an upper endoscopy by Dr. Langston at [facility] in [place] after that and reports that she was told that she had a hiatal hernia. Upon further questioning, she denies any heartburn or reflux. She also denies any nausea or vomiting. She denies any significant issues with any dysphagia as well as no unintentional weight loss. She reports that she is tolerating regular diet and activities with no issues. PAST MEDICAL HISTORY: Atrial fibrillation, myocardial infarction, hypertension, hypercholesterolemia, chronic back pain. PAST SURGICAL HISTORY: Laparoscopic cholecystectomy, pacemaker defibrillator placed, complete hysterectomy. ALLERGIES: ASPIRIN, MORPHINE. MEDICATIONS: Albuterol 90 mcg inhaler 2 puffs 4 hours p.r.n., amlodipine 10 mg at bedtime, clonidine 0.1 mg b.i.d., Flexeril 10 mg b.i.d., Benadryl 50 mg at bedtime, fluoxetine 20 mg b.i.d., lisinopril 20 mg at bedtime, metoprolol 50 mg b.i.d., spironolactone 25 mg daily. SOCIAL HISTORY: Positive for smoke half pack per day for 35 years. Negative for alcohol. FAMILY HISTORY: Father, liver cancer. Grandmother, uterine cancer. Mother, diabetes, hypertension, myocardial infarction, DVTs. Brother, diabetes, hypertension. VITAL SIGNS: Temperature 36.4 degrees Celsius, pulse 79, respirations 20, blood pressure is 145/78, pulse ox 98% on room air. REVIEW OF SYSTEMS: This is a well-nourished female, in no acute distress. She is not experiencing any shortness of breath or difficulty breathing. She does report episodes of chest pressure sensation and discomfort. No palpitations or diaphoresis. No nausea, vomiting or abdominal pain. No heartburn or reflux. No diarrhea or constipation. No red blood per rectum. No dark tarry stools. No fever or chills. No recent inadvertent weight loss. All other review of systems negative. PHYSICAL EXAMINATION: CHEST: Clear. Good breath sounds bilaterally. HEART: Regular, no murmurs. EXTREMITIES: No lower extremity edema. Negative Homans sign. HEENT: No scleral icterus. No cervical lymphadenopathy. ABDOMEN: Soft, nontender, nondistended. No palpable masses. No organomegaly. SKIN: Warm, dry and pink. NEUROLOGIC: Awake, alert, oriented x3. ASSESSMENT AND PLAN: A 49-year-old female with chest pain, hypertension, who had what sounds to be a syncopal episode versus cardiac. She did have a CT of the chest, which did show soft mass like density in the region of the mid thoracic. She has had a recent EGD and at this time, we will obtain the results from that procedure to determine if she should need a repeat EGD as well as potential biopsies. She is also instructed that she will need to proceed with a conservative medical management at this time for the hiatal hernia and she knows was discovered with smaller and more frequent meals and avoids eating late at night, keeping her head elevated while lying supine. It was also discussed with her that should she have any issues with heartburn and reflux that she will need to avoid any spicy, greasy, acidic, caffeine, alcohol as well as smoking cessation. We will at this time obtain her records from her previous EGD and have her follow up next week with us in the office to further determine if she should need any further evaluation or just continue to monitor this. Job ID: [id number] DocumentID: [id number] Dictated Date: 08/15/2019 14:45:45 Heel Blacker Date: 08/15/2019 17:24:30 Dictated By: KIMBERLY LOBO APRN
[2019-08-15 18:05] VITALS: BP 136/74
--- NOTE | 2019-08-16 23:04 | Physician Query Clarification ---
PQ-Further Specificity Admission/Discharge Admission Date: Aug 13, 2019 at 23:45 Discharge Date: Aug 15, 2019 at 18:08 The medical record reflects the following clinical scenario: History/Risk Factors: chest pain Clinical Findings: chest pain, esophageal mass Treatment: all cardiac testing normal, pantoprazole for GERD Question: Can you further specify non-cardiac chest pain per the clinical indicators above? Cardiology shows NSTEMI ruled out. Please document a response in the Progress Notes or Discharge Summary. 1. Non-cardiac chest pain, cause not found 2. GERD 3. Other, with explanation of the clinical findings. 4. Clinically undetermined, no explanation for the clinical findings. PHYSICIAN RESPONSE Can you specify per above: 2 Please remember a lack of response to the above will prompt a phone page by [facility] /Coding staff. In responding to this query, please exercise your independent professional judgment. The purpose of this communication is to more accurately reflect the complexity of your patients condition. The fact that a question is asked does not imply that any particular answer is desired or expected. Thank you for your timely response to this clarification. Requestors name: [ ] Phone # [ ] THIS PHYSICIAN QUERY FORM IS A PERMANENT PART OF THE MEDICAL RECORD ADONIS SALINAS Aug 16, 2019 23:04 HEATHER LOPEZ MD Aug 17, 2019 15:43 POS
== END 2019-08-15 18:08 | disposition home or self-care (01) | DRG 392 ==
LOC: EDUNIT# 20:25 → ER FS 20:27 → ICU 23:45 → 4TH 08-14 17:00
PROVIDERS: ADMIT Internal Medicine; ATTEND Internal Medicine
DX: K21.9 Gastro-esophageal reflux disease without esophagitis (principal); J98.11 Atelectasis; I25.2 Old myocardial infarction; I10 Essential (primary) hypertension; R55 Syncope and collapse; F17.210 Nicotine dependence, cigarettes, uncomplicated; K22.8 Other specified diseases of esophagus; J44.9 Chronic obstructive pulmonary disease, unspecified; G47.34 Idiopathic sleep related nonobstructive alveolar hypoventilation; R09.02 Hypoxemia; E78.2 Mixed hyperlipidemia; I48.91 Unspecified atrial fibrillation; E78.00 Pure hypercholesterolemia, unspecified; K44.9 Diaphragmatic hernia without obstruction or gangrene; Z95.810 Presence of automatic (implantable) cardiac defibrillator; Z88.6 Allergy status to analgesic agent
CPT/HCPCS: 36415; 71045; 71275; 78452; 80048; 80053; 80061; 83735; 83874; 83880; 84100; 84484; 85025; 85610; 85730; 93005; 93017; 93041; 93306; 94761; 96374; 96375

== ENCOUNTER → 2019-09-02 | Outpatient (CLI) | payer BC ==
[~2019-09-02] MED LIST changes: +AMLO10TA7 PO; +ATOR40TA PO; +CLON0.1T PO; +DIPH25CA79 PO; +FLUO20CA25 PO; +LISI-552 PO; +METO-370 PO; +PANT40TA3 PO; +RT-ALBUINH INH; +SPIR25TA5 PO
== END | disposition home or self-care (01) ==
LOC: PREOP 05:47
PROVIDERS: ATTEND Surgery
DX: Z01.818 Encounter for other preprocedural examination (principal)

== ENCOUNTER 2019-09-08 17:49 | Emergency (ER) | payer BC ==
[~2019-09-08] VITALS: Ht 170 cm; Wt 92.1 kg
--- NOTE | 2019-09-08 18:15 | ED Back Pain ---
General Chief Complaint: Back Problems Stated Complaint: BACK PAIN Source of Information: Patient, Spouse Exam Limitations: No Limitations History of Present Illness Date Seen by Provider: Sep 08, 2019 Time Seen by Provider: 17:50 Initial Comments Patient presents to ER by private conveyance with her spouse and chief complaint that today she was sitting when her chronic back pain exacerbated and she started to have right sided lumbar spinal tenderness and spasm. Her back pain does not radiate and she has no loss of control of bowel or bladder, weakness numbness tingling paresthesias or difficulty walking. She's not had surgery on her back before. She does have some diffuse lumbar spine and 2 bulging disks according to the patient. She took a cyclobenzaprine couple hours ago as well as Tylenol with modest relief but she cannot tolerate NSAIDs because she has a history of heart attack, and dysrhythmia with subsequent placement of pacemaker/AICD and followed by cardiology in [place], [place]. Her primary care doctor Dr. Herman use to keep her on opiates for her back pain but has stopped giving her those. She is using a topical patch. She had endoscopy Bin, 2 days ago for a mass in the back of her esophagus that they're afraid was cancerous but she has not received biopsy results yet. She is not on blood thinners. Allergies and Home Medications Allergies Coded Allergies: aspirin (Verified Allergy, Unknown, 03/07/19) morphine (Verified Allergy, Unknown, Pt has received Lortab & Hydromorphone, 09/06/19) Patient states is not allergic to Morphine Home Medications Albuterol Sulfate 1 Puff Puff, 2 PUFF INH Q4H PRN for SHORTNESS OF BREATH, (Reported) Amlodipine Besylate 10 Mg Tablet, 10 MG PO HS, (Reported) Atorvastatin Calcium 40 Mg Tablet, 40 MG PO HS Prescribed by: HEATHER PULLIAM on 08/15/19 1527 Clonidine HCl 0.1 Mg Tablet, 0.1 MG PO BID, (Reported) Cyclobenzaprine HCl 10 Mg Tablet, 10 MG PO BID, (Reported) Diphenhydramine HCl 25 Mg Capsule, 50 MG PO HS, (Reported) Fluoxetine HCl 20 Mg Capsule, 20 MG PO BID, (Reported) Lisinopril 20 Mg Tablet, 20 MG PO HS, (Reported) Metoprolol Succinate 50 Mg Tab.er.24h, 50 MG PO BID, (Reported) Pantoprazole Sodium 40 Mg Tablet.dr, 40 MG PO DAILY Prescribed by: HEATHER PULLIAM on 08/15/19 1527 Spironolactone 25 Mg Tablet, 25 MG PO DAILY, (Reported) Patient Home Medication List Home Medication List Reviewed: Yes Review of Systems Constitutional: No chills, No diaphoresis EENTM: No ear discharge, No ear pain Respiratory: No cough, No phlegm Cardiovascular: No chest pain, No palpitations Gastrointestinal: No abdominal pain, No nausea Genitourinary: No discharge, No dysuria : No Musculoskeletal: see HPI, back pain; No joint pain All Other Systems Reviewed Negative Unless Noted: Yes Past [id number] Hx Patient Social History Alcohol Use: Denies Use Recreational Drug Use: No Smoking Status: Current Everyday Smoker Type Used: Cigarettes 2nd Hand Smoke Exposure: Yes Recent Hopitalizations: No Physical Abuse: No Sexual Abuse: No Mistreated: No Fear: No Immunizations Up To Date Tetanus Booster (TDap): Unknown Date of Pneumonia Vaccine: Aug 14, 2016 Date of Influenza Vaccine: Jul 15, 2019 Seasonal Allergies Seasonal Allergies: No Past Medical History Surgeries: Yes Defibrillator, Gallbladder, Hysterectomy, Pacemaker, 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 Respiratory: No Cardiac: Yes (pacemaker/defib) Heart Attack, High Cholesterol, Hypertension Neurological: 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 0oz. [id number]; 31.34 BMI Method:Stated General Appearance: WD/WN, Mild Distress HEENT: PERRL/EOMI, Pharynx Normal, Moist Mucous Membranes Neck: Full Range of Motion, Normal Inspection Cardiovascular: No Edema, Normal Peripheral Pulses Respiratory: No Accessory Muscle Use, No Respiratory Distress Peripheral Pulses: 2+ Dorsalis Pedis (R), 2+ Left Dors-Pedis (L) Back: Normal Inspection, No CVA Tenderness, Muscle Spasm (right paraspinous lumbar muscles and to a lesser extent left paraspinous lumbar muscle) Extremity: Normal Capillary Refill, Normal Inspection, Normal Range of Motion Neurologic/Psychiatric: Alert, Oriented x3, No Motor/Sensory Deficits Procedures/Interventions Progress Risks, benefits and alternatives were explained and a site injection around the L5-S1 facet joint using 50-50 mixture of 2% lidocaine with epinephrine and 0.5% Marcaine with a total aggregate injection of 70 mL was performed. Skin was cleaned thoroughly with alcohol and using the Z track method to prevent bleeding. We then applied a bandage patient towards seizure well. Progress/Results/Core Measures Results/Orders Lab Results Laboratory Tests Test 09/08/19 18:07 Range/Units Urine Color YELLOW Urine Clarity SLT CLOUDY Urine pH 6.5 5-9 Urine Specific [place] 1.025 H 1.016-1.022 Urine Protein NEGATIVE NEGATIVE Urine Glucose (UA) NEGATIVE NEGATIVE Urine Ketones TRACE H NEGATIVE Urine Nitrite NEGATIVE NEGATIVE Urine Bilirubin 1+ H NEGATIVE Urine Urobilinogen 1.0 < = 1.0 MG/DL Urine Leukocyte Esterase NEGATIVE NEGATIVE Urine RBC (Auto) NEGATIVE NEGATIVE Urine RBC RARE /HPF Urine WBC 2-5 /HPF Urine Squamous Epithelial Cells 10-25 H /HPF Urine Renal Epithelial Cells /HPF Urine Crystals NONE /LPF Urine Bacteria TRACE /HPF Urine Casts NONE /LPF Urine Mucus MODERATE H /LPF Urine Culture Indicated NO My Orders Orders - MCKENNA SOLANO Ua Culture If Indicated (09/08/19 18:07) Bupivacaine 0.5% W/Epi Inj (Sensorcaine (09/08/19 18:30) Lidocaine 1% Inj 20 Ml (Xylocaine 1% Inj (09/08/19 18:30) Orphenadrine Injection (Norflex Injectio (09/08/19 18:30) Lidocaine/Epi 2% 1:100,000 (Xylocaine/Ep (09/08/19 18:45) Bupivacaine 0.5% Injection (Sensorcaine (09/08/19 18:45) Bupivacaine 0.5% Injection (Sensorcaine (09/08/19 18:34) Lidocaine/Epi 2% 1:100,000 (Xylocaine/Ep (09/08/19 18:34) Medications Given in ED Current Medications Medications Dose Ordered Sig/Norma Route Start Time Stop Time Status Last Admin Dose Admin Bupivacaine HCl 30 ml ONCE ONCE INJ 09/08/19 18:45 09/08/19 18:46 09/08/19 18:42 30 ML Lidocaine/ Epinephrine 20 ml ONCE ONCE INJ 09/08/19 18:45 09/08/19 18:46 09/08/19 18:43 20 ML Orphenadrine Citrate 60 mg ONCE ONCE IM 09/08/19 18:30 09/08/19 18:32 DC 09/08/19 18:40 60 MG Vital Signs/I&O 09/08/19 17:50 Temp 36.9 Pulse 95 Resp 18 B/P (MAP) 170/102 (124) Pulse Ox 95 O2 Delivery Room Air Progress Progress Note : Time: 18:13 Progress Note Plan to check a urinalysis to rule out UTI. We can do a shot of Norflex and a lidocaine/bupivacaine injection. She should continue Tylenol and topical creams as well as a back brace. We'll hold off opiates as this is the first day of her acute exacerbation of her chronic pain. We'll also avoid steroids until she has biopsy results from her esophagus. We don't have any imaging here to reference of her back. If her pain persists despite conservative management and she and her primary care doctor can discuss whether imaging is indicated as well as more aggressive measures such as steroids. Departure Impression Primary Impression: Lumbago Qualified Codes: M54.5 - Low back pain Disposition: 01 HOME, SELF-CARE Condition: Stable Departure-Patient Inst. Decision time for Depature: 18:46 Referrals: RICHARD HERMAN MD (PCP/Family) Primary Care Physician Patient Instructions: Low Back Pain (DC) Add. Discharge Instructions: Keep your follow-up appointment for your biopsy results. Discussed with your primary care doctor with the need more aggressive therapy next week based on your symptoms. Use topical creams such as icy hot, Biofreeze, patches etc. 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 and wear it as indicated. Tylenol 1000 mg every 8 hours as needed. Use your cyclobenzaprine as prescribed. All discharge instructions reviewed with patient and/or family. Voiced understanding. MCKENNA SOLANO Sep 08, 2019 18:15 POS
[2019-09-08 18:23] LABS: CLARITY,URINE SLT CLOUDY; COLOR,URINE YELLOW; PH,URINE 6.5 (5-9); PROTEIN,URINE NEGATIVE (NEGATIVE)
[2019-09-08 18:24] LABS: BILIRUBIN,URINE 1+ (NEGATIVE); GLUCOSE, URINE (UA) NEGATIVE (NEGATIVE); KETONES,URINE TRACE (NEGATIVE); LEUKOCYTE ESTERASE ,URINE NEGATIVE (NEGATIVE); NITRITE,URINE NEGATIVE (NEGATIVE); RBC,URINE RARE /HPF
[2019-09-08 18:25] LABS: BACTERIA,URINE TRACE /HPF
[2019-09-08] MEDS ORDERED: BUP/EPI 0.5% 1:200,000 (SENSORCAINE) 30 ML VIAL INJ ONE (18:30)
[2019-09-08] MEDS ORDERED: ORPHENADRINE 60 MG/2 ML (NORFLEX) AMP IM ONE (18:30)
[2019-09-08] MEDS ORDERED: LIDOCAINE 1% INJ 20 ML 20 ML VIAL INJ ONE (18:30)
[2019-09-08] MEDS ORDERED: BUPIVACAINE 0.5% 30 ML (SENSORCAINE) VIAL ONE (18:34)
[2019-09-08] MEDS ORDERED: LIDOCAINE/EPI 2% 1:100,00 (XYLOCAINE) 20 ML VIAL ONE (18:34)
[2019-09-08] MEDS ORDERED: LIDOCAINE/EPI 2% 1:100,00 (XYLOCAINE) 20 ML VIAL INJ ONE (18:45)
[2019-09-08] MEDS ORDERED: BUPIVACAINE 0.5% 30 ML (SENSORCAINE) VIAL INJ ONE (18:45)
[2019-09-08 18:56] VITALS: BP 170/102
== END 2019-09-08 18:56 | disposition home or self-care (01) ==
LOC: EDUNIT# 17:49 → ER FS 17:50
DX: M54.5 Low back pain (principal); I10 Essential (primary) hypertension; E78.00 Pure hypercholesterolemia, unspecified; I25.2 Old myocardial infarction; K21.9 Gastro-esophageal reflux disease without esophagitis; F17.210 Nicotine dependence, cigarettes, uncomplicated; Z95.810 Presence of automatic (implantable) cardiac defibrillator; Z98.51 Tubal ligation status; Z90.710 Acquired absence of both cervix and uterus; Z88.6 Allergy status to analgesic agent; Z88.5 Allergy status to narcotic agent
CPT/HCPCS: 81000; 96372; 99284

== ENCOUNTER 2019-09-11 19:19 | Emergency (ER) | payer BC ==
[~2019-09-11] VITALS: Ht 170 cm; Wt 90.1 kg
[2019-09-11] MEDS ORDERED: ADENOSINE 6 MG/2 ML (ADENOCARD) VIAL IV ONE ×2 (19:45→20:00)
--- NOTE | 2019-09-11 19:46 | ED Cardiac General ---
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 Complains of pain with shock andt in between shocks. No shortness of air. Compliant with her drug regimen. No recent illness Allergies and Home Medications Allergies Coded Allergies: aspirin (Verified Allergy, Unknown, 03/07/19) morphine (Verified Allergy, Unknown, Pt has received Lortab & Hydromorp radha, 09/06/19) Patient states is not allergic to Morphine Home Medications Albuterol Sulfate 1 Puff Puff, 2 PUFF INH Q4H PRN for SHORTNESS OF BREATH, (Reported) Amlodipine Besylate 10 Mg Tablet, 10 MG PO HS, (Reported) Atorvastatin Calcium 40 Mg Tablet, 40 MG PO HS Prescribed by: HEATHER PULLIAM on 08/15/19 1527 Clonidine HCl 0.1 Mg Tablet, 0.1 MG PO BID, (Reported) Cyclobenzaprine HCl 10 Mg Tablet, 10 MG PO BID, (Reported) Diphenhydramine HCl 25 Mg Capsule, 50 MG PO HS, (Reported) Fluoxetine HCl 20 Mg Capsule, 20 MG PO BID, (Reported) Lisinopril 20 Mg Tablet, 20 MG PO HS, (Reported) Metoprolol Succinate 50 Mg Tab.er.24h, 50 MG PO BID, (Reported) Pantoprazole Sodium 40 Mg Tablet.dr, 40 MG PO DAILY Prescribed by: HEATHER PULLIAM on 08/15/19 1527 Spironolactone 25 Mg Tablet, 25 MG PO DAILY, (Reported) Patient Home Medication List Home Medication List Reviewed: Yes Review of Systems Review of Systems Constitutional: no symptoms reported Respiratory: No Symptoms Reported Cardiovascular: See HPI, Chest Pain Gastrointestinal: No Symptoms Reported Musculoskeletal: no symptoms reported Skin: no symptoms reported Psychiatric/Neurological: No Symptoms Reported Endocrine: No Symptoms Reported All Other Systems Reviewed Negative Unless Noted: Yes Past Uippafp-Kwkvlg-Ltzqgx Hx Patient Social History Alcohol Use: Denies Use Recreational Drug Use: No Type Used: Cigarettes 2nd Hand Smoke Exposure: Yes Recent Foreign Travel: No Contact w/Someone Who Travel: No Recent Infectious Disease Expo: No Recent Hopitalizations: No Physical Abuse: No Sexual Abuse: No Mistreated: No Fear: No Immunizations Up To Date Tetanus Booster (TDap): Unknown Date of Pneumonia Vaccine: Aug 14, 2016 Date of Influenza Vaccine: Jul 15, 2019 Seasonal Allergies Seasonal Allergies: No Past Medical History Surgeries: Yes Defibrillator, Gallbladder, Hysterectomy, Pacemaker, 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 Respiratory: No Cardiac: Yes (pacemaker/defib) Heart Attack, High Cholesterol, Hypertension 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 0oz. [id number]; 31.00 BMI Method:Stated General Appearance: No Apparent Distress, WD/WN HEENT: PERRL/EOMI, Pharynx Normal Neck: Supple Respiratory: Lungs Clear, Normal Breath Sounds Cardiovascular: Regular Rate, Rhythm, No Edema Gastrointestinal: Soft Extremity: Normal Inspection Neurologic/Psychiatric: Alert, No Motor/Sensory Deficits Skin: Normal Color, Warm/Dry Progress/Results/Core Measures Results/Orders Lab Results Laboratory Tests Test 09/11/19 19:24 Range/Units White Blood Count 10.0 4.3-11.0 10^3/uL Red Blood Count 5.21 4.35-5.85 10^6/uL Hemoglobin 15.9 11.5-16.0 G/DL Hematocrit 47 35-52 % Mean Corpuscular Volume 91 80-99 FL Mean Corpuscular Hemoglobin 31 25-34 PG Mean Corpuscular Hemoglobin Concent 34 32-36 G/DL Red Cell Distribution Width 13.2 10.0-14.5 % Platelet Count 301 130-400 10^3/uL Mean Platelet Volume 10.1 7.4-10.4 FL Neutrophils (%) (Auto) 51 42-75 % Lymphocytes (%) (Auto) 43 12-44 % Monocytes (%) (Auto) 4 0-12 % Eosinophils (%) (Auto) 2 0-10 % Basophils (%) (Auto) 1 0-10 % Neutrophils # (Auto) 5.1 1.8-7.8 X 10^3 Lymphocytes # (Auto) 4.2 H 1.0-4.0 X 10^3 Monocytes # (Auto) 0.4 0.0-1.0 X 10^3 Eosinophils # (Auto) 0.2 0.0-0.3 10^3/uL Basophils # (Auto) 0.1 0.0-0.1 10^3/uL Prothrombin Time 12.8 12.2-14.7 SEC INR Comment 0.9 0.8-1.4 Activated Partial Thromboplast Time 27 24-35 SEC Sodium Level 139 135-145 MMOL/L Potassium Level 2.6 L 3.6-5.0 MMOL/L Chloride Level 102 98-107 MMOL/L Carbon Dioxide Level 18 L 21-32 MMOL/L Anion Gap 19 H 5-14 MMOL/L Blood Urea Nitrogen 7 7-18 MG/DL Creatinine 0.68 0.60-1.30 MG/DL Estimat Glomerular Filtration Rate > 60 BUN/Creatinine Ratio 10 Glucose Level 184 H 70-105 MG/DL Calcium Level 9.3 8.5-10.1 MG/DL Corrected Calcium 8.5-10.1 MG/DL Magnesium Level 1.5 L 1.6-2.4 MG/DL Total Bilirubin 0.2 0.1-1.0 MG/DL Aspartate Amino Transf (AST/SGOT) 15 5-34 U/L Alanine Aminotransferase (ALT/SGPT) 16 0-55 U/L Alkaline Phosphatase 129 40-136 U/L Troponin I < 0.30 <0.30 NG/ML Pro-B-Type Natriuretic Peptide 159.0 H <75.0 PG/ML Total Protein 7.9 6.4-8.2 GM/DL Albumin 4.7 H 3.2-4.5 GM/DL My Orders Orders - CRAIG KHANNA MD Cbc With Automated Diff (09/11/19 19:21) Magnesium (09/11/19 19:21) Chest 1 View Ap/Pa Only (09/11/19 19:21) Ekg Tracing (09/11/19 19:21) Comprehensive Metabolic Panel (09/11/19 19:21) Protime With Inr (09/11/19 19:21) Partial Thromboplastin Time (09/11/19 19:21) O2 (09/11/19 19:21) Monitor-Rhythm Ecg Trace Only (09/11/19 19:21) Ed Iv/Invasive Line Start (09/11/19 19:21) Troponin I Fs (09/11/19 19:21) Probnp Fs (09/11/19 19:27) Adenosine Injection (Adenocard Injection (09/11/19 19:45) Adenosine Injection (Adenocard Injection (09/11/19 20:00) Metoprolol Tartrate Injection (Lopressor (09/11/19 20:15) Potassium Chloride (Tablet) (K Dur Table (09/11/19 20:30) Magnesium Oxide Tablet (Mag Ox Tablet) (09/11/19 20:30) 1/2 Ns W/Kcl 20 Meq/L (0.45% Sodium Chlo (09/11/19 20:30) Fentanyl Injection (Sublimaze Injection (09/11/19 20:30) Labetalol Injection (Normodyne Injection (09/11/19 21:00) Medications Given in ED Current Medications Medications Dose Ordered Sig/Norma Route Start Time Stop Time Status Last Admin Dose Admin Adenosine 6 mg ONCE ONCE IV 09/11/19 19:45 09/11/19 19:46 DC 09/11/19 19:44 6 MG Adenosine 12 mg ONCE ONCE IV 09/11/19 20:00 09/11/19 20:01 DC 09/11/19 19:51 12 MG Fentanyl Citrate 75 mcg ONCE ONCE IVP 09/11/19 20:30 09/11/19 20:31 DC 09/11/19 20:36 75 MCG Magnesium Oxide 400 mg ONCE ONCE PO 09/11/19 20:30 09/11/19 20:31 DC 09/11/19 20:31 400 MG Metoprolol Tartrate 10 mg ONCE ONCE IV 09/11/19 20:15 09/11/19 20:16 DC 09/11/19 20:11 10 MG Potassium Chloride 40 meq ONCE ONCE PO 09/11/19 20:30 09/11/19 20:31 DC 09/11/19 20:31 40 MEQ Vital Signs/I&O 11/27/19 19:32 Temp 37.1 Pulse 137 Resp 22 B/P (MAP) 163/115 (131) O2 Delivery Room Air Blood Pressure Mean: 131 POS Progress Progress Note : Time: 20:56 Progress Note Patient was initially treated with adenosine for presumed SVT. This did not change her rhythm. She was given Lopressor 10 mg IV to slow down to 92 bpm sinus rhythm. Her potassium was treated with oral and IV potassium. Magnesium was replenished. Labetalol was given for hypertension. Fentanyl was given for pain. I discussed the patient with Dr. Rodriguez who accepted transfer to [facility] ICU. Initial ECG Impression Date: Sep 11, 2019 Initial ECG Impression Time: 19:24 Initial ECG Rate: 142 Initial ECG Intervals: Normal Initial ECG Intervals Patient initially presented with a narrow complex tachycardia at 142 bpm. Departure Impression Primary Impression: Defibrillator discharge Additional Impressions: Hypokalemia Hypomagnesemia Disposition: XFER SHT-TRM HOSP Condition: Improved Transfer Transfer Reason: Exceeds level of care Time Spoke to Accepting Phy: 21:02 Transfer Progress Notes I spoke with Dr Rodriguez (cardiology) and Dr Wadsworth (cashiers supervisor) who accepted transfer to ICU Transfer Time: 21:02 Transfer Facility: [facility] Method of Transfer: EMS Departure-Patient Inst. Referrals: RICHARD HERMAN MD (PCP/Family) Primary Care Physician CRAIG KHANNA MD Sep 11, 2019 19:45 POS
--- NOTE | 2019-09-11 19:48 | Diagnostic Imaging Report ---
INDICATION: Abnormal discharge of defibrillator. FINDINGS: Implantable cardiac defibrillator device is present. Heart size appears appropriate. Central pulmonary vascularity appears within normal limits. There is no focal alveolar infiltrate or consolidation. There is no effusion. There is no pneumothorax. IMPRESSION: 1. No radiographic evidence of an acute cardiopulmonary process. Heart size and pulmonary vascularity appear appropriate. Dictated by: Dictated on workstation # [id number]
[2019-09-11 20:03] LABS: BASOPHILS # (AUTO) 0.1 10^3/uL (0.0-0.1); BASOPHILS % (AUTO) 1 % (0-10); EOSINOPHILS # (AUTO) 0.2 10^3/uL (0.0-0.3); EOSINOPHILS % (AUTO) 2 % (0-10); HEMATOCRIT 47 % (35-52); HEMOGLOBIN 15.9 G/DL (11.5-16.0); LYMPHOCYTES # (AUTO) 4.2 X 10^3 (1.0-4.0); LYMPHOCYTES % (AUTO) 43 % (12-44); MEAN CORPUSCULAR HEMOGLOBIN 31 PG (25-34); MEAN CORPUSCULAR HGB CONC 34 G/DL (32-36); MEAN CORPUSCULAR VOLUME 91 FL (80-99); MEAN PLATELET VOLUME 10.1 FL (7.4-10.4); MONOCYTES # (AUTO) 0.4 X 10^3 (0.0-1.0); MONOCYTES % (AUTO) 4 % (0-12); NEUTROPHILS # (AUTO) 5.1 X 10^3 (1.8-7.8); NEUTROPHILS % (AUTO) 51 % (42-75); PLATELET COUNT 301 10^3/uL (130-400); RED CELL DISTRIBUTION WIDTH 13.2 % (10.0-14.5)
[2019-09-11 20:14] LABS: INR 0.9 (0.8-1.4); PROTHROMBIN TIME PATIENT 12.8 SEC (12.2-14.7)
[2019-09-11 20:15] LABS: CALCIUM 9.3 MG/DL (8.5-10.1); CARBON DIOXIDE 18 MMOL/L (21-32); CHLORIDE 102 MMOL/L (98-107); GLUCOSE 184 MG/DL (70-105); POTASSIUM 2.6 MMOL/L (3.6-5.0); SODIUM 139 MMOL/L (135-145)
[2019-09-11] MEDS ORDERED: meTOprolol 5 MG/5 ML (LOPRESSOR) VIAL IV ONE (20:15)
[2019-09-11 20:16] LABS: BILIRUBIN,TOTAL 0.2 MG/DL (0.1-1.0); MAGNESIUM 1.5 MG/DL (1.6-2.4); TOTAL PROTEIN 7.9 GM/DL (6.4-8.2)
[2019-09-11 20:20] LABS: ALANINE AMINOTRANSFERASE 16 U/L (0-55); ALBUMIN 4.7 GM/DL (3.2-4.5); ALKALINE PHOSPHATASE 129 U/L (40-136); BUN/CREATININE RATIO 10; CREATININE SERUM 0.68 MG/DL (0.60-1.30); GFR ESTIMATED > 60
[2019-09-11] MEDS ORDERED: fentaNYL INJECTION 100 MCG/2 ML AMP IVP ONE (20:30)
[2019-09-11] MEDS ORDERED: MAGNESIUM OXIDE (MAG-OX)400 MG TAB PO ONE (20:30)
[2019-09-11] MEDS ORDERED: 1/2 NS W/KCL 20 MEQ/L 1,000 ML IV SCH (20:30)
[2019-09-11] MEDS ORDERED: KCL 20 MEQ TAB (K-DUR) PO ONE (20:30)
[2019-09-11] MEDS ORDERED: LABETALOL HCL 20 MG/4 ML VIAL IV ONE (21:00)
[2019-09-11] MEDS ORDERED: LORazepam 0.5 MG (ATIVAN) TABLET PO STA (21:12)
--- NOTE | 2019-09-11 21:20 | NUR ---
dispatch notified of need for transport
--- NOTE | 2019-09-11 21:42 | NUR ---
ems here for transport
[2019-09-11 21:55] VITALS: BP 119/95
== END 2019-09-11 21:55 | disposition short-term general hospital (02) ==
LOC: EDUNIT# 19:19 → ER FS 19:21
DX: T82.191A Other mechanical complication of cardiac pulse generator (battery), initial encounter (principal); E87.6 Hypokalemia; E83.42 Hypomagnesemia; I10 Essential (primary) hypertension; E78.00 Pure hypercholesterolemia, unspecified; I25.2 Old myocardial infarction; K21.9 Gastro-esophageal reflux disease without esophagitis; Z88.6 Allergy status to analgesic agent; Z77.22 Contact with and (suspected) exposure to environmental tobacco smoke (acute) (chronic); Z90.710 Acquired absence of both cervix and uterus; Z98.51 Tubal ligation status
CPT/HCPCS: 36415; 71045; 80053; 83735; 83880; 84484; 85025; 85610; 85730

== ENCOUNTER 2019-09-16 16:25 | Emergency (ER) | payer BC ==
[~2019-09-16] VITALS: Ht 170 cm; Wt 94.6 kg
--- NOTE | 2019-09-16 16:57 | Diagnostic Imaging Report ---
INDICATION: Abnormal function of pacemaker. TECHNIQUE: A frontal chest was obtained at 4:24 PM. COMPARISON: 09/11/2019. FINDINGS: The heart and mediastinal silhouette are normal in appearance. The pacemaker device is unchanged. There is no pneumothorax or pleural fluid. IMPRESSION: No acute process in the chest. The pacemaker device is unchanged from 09/11/2019. Dictated by: Dictated on workstation # [id number]
[2019-09-16 16:58] LABS: HEMATOCRIT 42 % (35-52); MEAN CORPUSCULAR HEMOGLOBIN 31 PG (25-34); WHITE BLOOD COUNT 6.9 10^3/uL (4.3-11.0)
[2019-09-16 16:59] LABS: BASOPHILS % (AUTO) 1 % (0-10); EOSINOPHILS # (AUTO) 0.1 10^3/uL (0.0-0.3); EOSINOPHILS % (AUTO) 2 % (0-10); LYMPHOCYTES # (AUTO) 2.6 X 10^3 (1.0-4.0); LYMPHOCYTES % (AUTO) 38 % (12-44); MEAN CORPUSCULAR HGB CONC 34 G/DL (32-36); MEAN CORPUSCULAR VOLUME 93 FL (80-99); MEAN PLATELET VOLUME 9.8 FL (7.4-10.4); MONOCYTES # (AUTO) 0.4 X 10^3 (0.0-1.0); MONOCYTES % (AUTO) 6 % (0-12); NEUTROPHILS # (AUTO) 3.7 X 10^3 (1.8-7.8); NEUTROPHILS % (AUTO) 53 % (42-75); PLATELET COUNT 271 10^3/uL (130-400); RED CELL DISTRIBUTION WIDTH 13.2 % (10.0-14.5)
[2019-09-16] MEDS ORDERED: NS IV 1000 ML 1,000 ML IV SCH (17:00)
[2019-09-16] MEDS ORDERED: meTOprolol 5 MG/5 ML (LOPRESSOR) VIAL IV ONE (17:00)
--- NOTE | 2019-09-16 17:05 | ED Cardiac General ---
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 She was watching tv when it started. Is complaining of associated chest pain rated at 9/10 and has taken tylenol for the pain. Was seen 5 days ago for same symptoms [facility] She states it quit shocking her after she was admitted and was discharged 2 days ago. Source: patient, family Exam Limitations: no limitations History of Present Illness Date Seen by Provider: Sep 16, 2019 Time Seen by Provider: 16:55 Initial Comments Patient presents with complaint of her defibrillator shocking her five times since last night.. Patient seen for the same thing last week and was transferred to [place] for further evaluation and sent home the next day. Patient said that her defibrillator checked out fine. She was called by the cardiology service from [place] today and they asked how she was doing, she told them that her defibrillator was going off again and advised to come to the ER. Patient complains of chest pain at rest without any shortness of air. Denies any pain or extremities. Denies any recent illness or fever. Allergies and Home Medications Allergies Coded Allergies: aspirin (Verified Allergy, Unknown, 03/07/19) latex (Verified Allergy, Unknown, 09/16/19) morphine (Verified Allergy, Unknown, Pt has received Lortab & Hydromorphone, 09/06/19) Patient states is not allergic to Morphine Home Medications Albuterol Sulfate 1 Puff Puff, 2 PUFF INH Q4H PRN for SHORTNESS OF BREATH, (Reported) Amlodipine Besylate 10 Mg Tablet, 10 MG PO HS, (Reported) Atorvastatin Calcium 40 Mg Tablet, 40 MG PO HS Prescribed by: HEATHER PULLIAM on 08/15/19 1527 Clonidine HCl 0.1 Mg Tablet, 0.1 MG PO BID, (Reported) Cyclobenzaprine HCl 10 Mg Tablet, 10 MG PO BID, (Reported) Diphenhydramine HCl 25 Mg Capsule, 50 MG PO HS, (Reported) Fluoxetine HCl 20 Mg Capsule, 20 MG PO BID, (Reported) Lisinopril 20 Mg Tablet, 20 MG PO HS, (Reported) Metoprolol Succinate 50 Mg Tab.er.24h, 50 MG PO BID, (Reported) Pantoprazole Sodium 40 Mg Tablet.dr, 40 MG PO DAILY Prescribed by: HEATHER PULLIAM on 08/15/19 1527 Spironolactone 25 Mg Tablet, 25 MG PO DAILY, (Reported) Patient Home Medication List Home Medication List Reviewed: Yes Review of Systems Review of Systems Constitutional: see HPI; No fever, No malaise, No weakness Respiratory: Denies Cough, Denies Orthopnea, Denies Shortness of Air Cardiovascular: Chest Pain; Denies Edema, Denies Irregular Heart Rate, Denies Lightheadedness; Palpitations; Denies Syncope Gastrointestinal: Denies Abdominal Pain, Denies Nausea, Denies Vomiting Musculoskeletal: No back pain Past Wjcslwr-Nachuu-Mkeedb Hx Patient Social History Alcohol Use: Denies Use Recreational Drug Use: No Smoking Status: Current Everyday Smoker Type Used: Cigarettes 2nd Hand Smoke Exposure: Yes Recent Foreign Travel: No Contact w/Someone Who Travel: No Recent Infectious Disease Expo: No Recent Hopitalizations: No Physical Abuse: No Sexual Abuse: No Mistreated: No Fear: No Immunizations Up To Date Tetanus Booster (TDap): Unknown Date of Pneumonia Vaccine: Aug 14, 2016 Date of Influenza Vaccine: Jul 15, 2019 Seasonal Allergies Seasonal Allergies: No Past Medical History Surgeries: Yes Defibrillator, Gallbladder, Hysterectomy, Pacemaker, 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 Respiratory: No Cardiac: Yes (pacemaker/defib; a-fib) Heart Attack, High Cholesterol, Hypertension 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 0oz. 90.987330jm; 32.00 BMI Method:Stated General Appearance: No Apparent Distress, WD/WN HEENT: Normal ENT Inspection Neck: Full Range of Motion, Non Tender, Supple; No JVD Respiratory: Chest Non Tender, Lungs Clear, Normal Breath Sounds Cardiovascular: No Gallop, No JVD, No Murmur, Normal Peripheral Pulses, Irregularly Irregular Gastrointestinal: Normal Bowel Sounds, No Pulsatile Mass, Non Tender Extremity: Normal Capillary Refill, Normal Inspection, Non Tender, No Calf Tenderness Neurologic/Psychiatric: Alert, Oriented x3, No Motor/Sensory Deficits Skin: Normal Color, Warm/Dry Progress/Results/Core Measures Results/Orders Lab Results Laboratory Tests Test 09/16/19 13:45 09/16/19 16:45 Range/Units Prothrombin Time 12.2 12.2-14.7 SEC INR Comment 0.9 0.8-1.4 Magnesium Level 1.7 1.6-2.4 MG/DL White Blood Count 6.9 4.3-11.0 10^3/uL Red Blood Count 4.48 4.35-5.85 10^6/uL Hemoglobin 14.0 11.5-16.0 G/DL Hematocrit 42 35-52 % Mean Corpuscular Volume 93 80-99 FL Mean Corpuscular Hemoglobin 31 25-34 PG Mean Corpuscular Hemoglobin Concent 34 32-36 G/DL Red Cell Distribution Width 13.2 10.0-14.5 % Platelet Count 271 130-400 10^3/uL Mean Platelet Volume 9.8 7.4-10.4 FL Neutrophils (%) (Auto) 53 42-75 % Lymphocytes (%) (Auto) 38 12-44 % Monocytes (%) (Auto) 6 0-12 % Eosinophils (%) (Auto) 2 0-10 % Basophils (%) (Auto) 1 0-10 % Neutrophils # (Auto) 3.7 1.8-7.8 X 10^3 Lymphocytes # (Auto) 2.6 1.0-4.0 X 10^3 Monocytes # (Auto) 0.4 0.0-1.0 X 10^3 Eosinophils # (Auto) 0.1 0.0-0.3 10^3/uL Basophils # (Auto) 0.0 0.0-0.1 10^3/uL Sodium Level 141 135-145 MMOL/L Potassium Level 3.4 L 3.6-5.0 MMOL/L Chloride Level 105 98-107 MMOL/L Carbon Dioxide Level 22 21-32 MMOL/L Anion Gap 14 5-14 MMOL/L Blood Urea Nitrogen 14 7-18 MG/DL Creatinine 0.65 0.60-1.30 MG/DL Estimat Glomerular Filtration Rate > 60 BUN/Creatinine Ratio 22 Glucose Level 157 H 70-105 MG/DL Calcium Level 9.2 8.5-10.1 MG/DL Corrected Calcium 9.0 8.5-10.1 MG/DL Total Bilirubin < 0.2 0.1-1.0 MG/DL Aspartate Amino Transf (AST/SGOT) 17 5-34 U/L Alanine Aminotransferase (ALT/SGPT) 17 0-55 U/L Alkaline Phosphatase 105 40-136 U/L Troponin I < 0.30 <0.30 NG/ML Total Protein 7.3 6.4-8.2 GM/DL Albumin 4.3 3.2-4.5 GM/DL My Orders Orders - CHEVY EARLY DO Cbc With Automated Diff (09/16/19 16:40) Comprehensive Metabolic Panel (09/16/19 16:40) Troponin I Fs (09/16/19 16:40) Chest 1 View Ap/Pa Only (09/16/19 16:40) Ekg Tracing (09/16/19 16:40) Protime With Inr (09/16/19 16:58) Magnesium (09/16/19 16:58) Ns Iv 1000 Ml (Sodium Chloride 0.9%) (09/16/19 17:00) Metoprolol Tartrate Injection (Lopressor (09/16/19 17:00) Fentanyl Injection (Sublimaze Injection (09/16/19 17:30) Medications Given in ED Current Medications Medications Dose Ordered Sig/Norma Route Start Time Stop Time Status Last Admin Dose Admin Fentanyl Citrate 50 mcg ONCE ONCE IVP 09/16/19 17:30 09/16/19 17:31 DC 09/16/19 17:43 50 MCG Metoprolol Tartrate 5 mg ONCE ONCE IV 09/16/19 17:00 09/16/19 17:01 DC 09/16/19 17:12 5 MG Vital Signs/I&O 09/16/19 09/16/19 16:30 17:57 Temp 36.6 36.7 Pulse 126 88 Resp 20 17 B/P (MAP) 187/119 (141) 178/119 Pulse Ox 96 97 Blood Pressure Mean: 141 POS Initial ECG Impression Date: Sep 16, 2019 Initial ECG Rhythm: S.Tach Initial ECG Intervals: Normal Initial ECG Impression: Normal Initial ECG Comparisson: No Previous ECG Available Departure Impression Primary Impression: Defibrillator discharge Additional Impression: Sinus tachycardia Disposition: 02 XFER SHT-TRM HOSP Condition: Stable Transfer Transfer Reason: Exceeds level of care Time Spoke to Accepting Phy: 17:30 Transfer Progress Notes Called Sandra Stover @ [phone], Dr Conti accepts @ [phone] for transfer to [facility]. Method of Transfer: EMS Departure-Patient Inst. Referrals: RICHARD HERMAN MD (PCP/Family) Primary Care Physician CHEVY EARLY DO Sep 16, 2019 17:05 POS
[2019-09-16 17:21] LABS: ALANINE AMINOTRANSFERASE 17 U/L (0-55); ALKALINE PHOSPHATASE 105 U/L (40-136); BILIRUBIN,TOTAL < 0.2 MG/DL (0.1-1.0); BUN/CREATININE RATIO 22; CALCIUM 9.2 MG/DL (8.5-10.1); CARBON DIOXIDE 22 MMOL/L (21-32); CHLORIDE 105 MMOL/L (98-107); CREATININE SERUM 0.65 MG/DL (0.60-1.30); GFR ESTIMATED > 60; GLUCOSE 157 MG/DL (70-105); POTASSIUM 3.4 MMOL/L (3.6-5.0); SODIUM 141 MMOL/L (135-145); TOTAL PROTEIN 7.3 GM/DL (6.4-8.2)
[2019-09-16 17:22] LABS: ALBUMIN 4.3 GM/DL (3.2-4.5)
[2019-09-16 17:30] LABS: INR 0.9 (0.8-1.4); PROTHROMBIN TIME PATIENT 12.2 SEC (12.2-14.7)
[2019-09-16] MEDS ORDERED: fentaNYL INJECTION 100 MCG/2 ML AMP IVP ONE (17:30)
[2019-09-16 17:57] VITALS: BP 178/119
[2019-10-11] MEDS ORDERED: PANT40TA2 PO (10:29)
[2019-10-11] MEDS ORDERED: DICL100G31 TOP (10:29)
[2019-10-11] MEDS ORDERED: SUCR1TAB PO (10:29)
[2019-10-11] MEDS ORDERED: HYDR12.5 PO (10:29)
--- OUTSIDE RECORDS SUMMARY | 2019-10-11 19:39 | XMS REPORT | Continuity of Care Document ---
Author Organization Unknown Address Unknown Phone Unavailable Allergies Active Description Code Type Severity Reaction Onset Reported/Identified Relationship to Patient Clinical Status Yes aspirin [id number] Drug Allergy Unknown N/A 03/07/2019 Yes morphine [id number] Drug Allergy Unknown N/A 04/21/2019 Yes morphine [id number] Drug Allergy Unknown Pt has received 09/06/2019 Yes latex [id number] Drug Allergy Unknown N/A 09/16/2019 Medications There is no data. Problems Date Dx Coded Attending Type Code Diagnosis Diagnosed By 01/12/2019 CAROLANN GUTHRIE DOED T Ot I10 ESSENTIAL (PRIMARY) HYPERTENSION 01/12/2019 CAROLANN GUTHRIE DOED T Ot R07. 9 CHEST PAIN, UNSPECIFIED 01/12/2019 JERRI TALBERT [place] T Ot Z88. 5 ALLERGY STATUS TO NARCOTIC AGENT STATUS 01/12/2019 JERRI TALBERT [place] T Ot Z88. 6 ALLERGY STATUS TO ANALGESIC AGENT STATUS 01/12/2019 CAROLANN GUTHRIE DOED T Ot Z95. 0 PRESENCE OF CARDIAC PACEMAKER 01/17/2019 JERRI TALBERT [place] T Ot I10 ESSENTIAL (PRIMARY) HYPERTENSION 01/17/2019 CAROLANN GUTHRIE DOED T Ot R07. 9 CHEST PAIN, UNSPECIFIED 01/17/2019 [place] GUTHRIE DO T Ot Z88. 5 ALLERGY STATUS TO NARCOTIC AGENT STATUS 01/17/2019 JERRI TALBERT [place] T Ot Z88. 6 ALLERGY STATUS TO ANALGESIC AGENT STATUS 01/17/2019 JERRI TALBERT [place] T Ot Z95. 0 PRESENCE OF CARDIAC PACEMAKER 02/27/2019 LAMIN ADLER MD, Ot F17.2 10 NICOTINE DEPENDENCE, CIGARETTES, UNCOMPL 02/27/2019 LAMIN ADLER MD, Ot H66.4 1 SUPPURATIVE OTITIS MEDIA, UNSPECIFIED, R 02/27/2019 LAMIN ADLER MD, Ot I10 ESSENTIAL (PRIMARY) HYPERTENSION 02/27/2019 LAMIN ADLER MD, Ot J32.0 CHRONIC MAXILLARY SINUSITIS 02/27/2019 ENYART MD, LAMIN E Ot K22.8 OTHER SPECIFIED DISEASES OF ESOPHAGUS 02/27/2019 LAMIN ADLER MD Ot R05 COUGH 02/27/2019 LAMIN ADLER MD Ot Z88.5 ALLERGY STATUS TO NARCOTIC AGENT STATUS 02/27/2019 LAMIN ADLER MD Ot Z88.6 ALLERGY STATUS TO ANALGESIC AGENT STATUS 02/27/2019 LAMIN ADLER MD Ot Z95.8 10 PRESENCE OF AUTOMATIC (IMPLANTABLE) CARD 03/01/2019 LAMIN ADLER MD Ot F17.2 10 NICOTINE DEPENDENCE, CIGARETTES, UNCOMPL 03/01/2019 LAMIN ADLER MD Ot H66.4 1 SUPPURATIVE OTITIS MEDIA, UNSPECIFIED, R 03/01/2019 LAMIN ADLER MD, Ot I10 ESSENTIAL (PRIMARY) HYPERTENSION 03/01/2019 LAMIN ADLER MD Ot J32.0 CHRONIC MAXILLARY SINUSITIS 03/01/2019 LAMIN ADLER MD Ot K22.8 OTHER SPECIFIED DISEASES OF ESOPHAGUS 03/01/2019 LAMIN ADLER MD Ot R05 COUGH 03/01/2019 LAMIN ADLER MD, Ot Z88.5 ALLERGY STATUS TO NARCOTIC AGENT STATUS 03/01/2019 LAMIN ADLER MD Ot Z88.6 ALLERGY STATUS TO ANALGESIC AGENT STATUS 03/01/2019 LAMIN ADLER MD Ot Z95.8 10 PRESENCE OF AUTOMATIC (IMPLANTABLE) CARD 03/05/2019 CAROLANN GUTHRIE DOED T Ot I10 ESSENTIAL (PRIMARY) HYPERTENSION 03/05/2019 [place] GUTHRIE DO T Ot I16. 0 HYPERTENSIVE URGENCY 03/05/2019 [place] GUTHRIE DO T Ot R07. 89 OTHER CHEST PAIN 03/05/2019 CAROLANN GUTHRIE DOED T Ot R07. 9 CHEST PAIN, UNSPECIFIED 03/05/2019 CAROLANN GUTHRIE DOED T Ot T82.198A [facility] COMPL OF OTHER CARDIAC ELECTRONIC D 03/05/2019 [place] GUTHRIE DO Ot Z77. 22 CNTCT W AND EXPSR TO ENVIRON TOBACCO SMO 03/05/2019 [place] GUTHRIE DO T Ot Z88. 5 ALLERGY STATUS TO NARCOTIC AGENT STATUS 03/05/2019 [place] GUTHRIE DO T Ot Z88. 6 ALLERGY STATUS TO ANALGESIC AGENT STATUS 03/05/2019 [place] GUTHRIE DO T Ot Z95.810 PRESENCE OF AUTOMATIC (IMPLANTABLE) CARD 03/06/2019 JERRI TALBERT, [place] T Ot I10 ESSENTIAL (PRIMARY) HYPERTENSION 03/06/2019 JERRI TALBERT, [place] T Ot I16. 0 HYPERTENSIVE URGENCY 03/06/2019 JERRI TALBERT, [place] T Ot R07. 89 OTHER CHEST PAIN 03/06/2019 JERRI TALBERT, [place] T Ot R07. 9 CHEST PAIN, UNSPECIFIED 03/06/2019 JERRI TALBERT, [place] T Ot T82.198A [facility] COMPL OF OTHER CARDIAC ELECTRONIC D 03/06/2019 JERRI TALBERT, [place] T Ot Z77. 22 CNTCT W AND EXPSR TO ENVIRON TOBACCO SMO 03/06/2019 JERRI TALBERT, [place] T Ot Z88. 5 ALLERGY STATUS TO NARCOTIC AGENT STATUS 03/06/2019 JERRI TALBERT, [place] T Ot Z88. 6 ALLERGY STATUS TO ANALGESIC AGENT STATUS 03/06/2019 JERRI TALBERT, [place] T Ot Z95.810 PRESENCE OF AUTOMATIC (IMPLANTABLE) CARD 03/07/2019 DORETHA TALBERT, ARISTEO Ot I10 ESSENTIAL (PRIMARY) HYPERTENSION 03/07/2019 COYNE , ARISTEO Ot I25.10 ATHSCL HEART DISEASE OF [place] CORONARY 03/07/2019 COYNE DO, ARISTEO Ot R10.31 RIGHT LOWER QUADRANT PAIN 03/07/2019 COYNE , ARISTEO Ot Z77.22 CNTCT W AND EXPSR TO ENVIRON TOBACCO SMO 03/07/2019 COYNE , ARISTEO Ot Z88.5 ALLERGY STATUS TO NARCOTIC AGENT STATUS 03/07/2019 DORETHA TALBERT, ARISTEO Ot Z88.6 ALLERGY STATUS TO ANALGESIC AGENT STATUS 03/07/2019 COYNE , ARISTEO Ot Z95.810 PRESENCE OF AUTOMATIC (IMPLANTABLE) CARD 03/07/2019 COYNE , ARISTEO Ot Z95.9 PRESENCE OF CARDIAC AND VASCULAR IMPLANT 03/10/2019 JERRI TALBERT, [place] T Ot I10 ESSENTIAL (PRIMARY) HYPERTENSION 03/10/2019 JERRI TALBERT, [place] T Ot I16. 0 HYPERTENSIVE URGENCY 03/10/2019 JERRI TALBERT, [place] T Ot R07. 89 OTHER CHEST PAIN 03/10/2019 JERRI TALBERT, [place] T Ot R07. 9 CHEST PAIN, UNSPECIFIED 03/10/2019 JERRI TALBERT, [place] T Ot T82.198A [facility] COMPL OF OTHER CARDIAC ELECTRONIC D 03/10/2019 JERRI TALBERT, [place] T Ot Z77. 22 CNTCT W AND EXPSR TO ENVIRON TOBACCO SMO 03/10/2019 JERRI DO, [place] T Ot Z88. 5 ALLERGY STATUS TO NARCOTIC AGENT STATUS 03/10/2019 JERRI TALBERT, [place] T Ot Z88. 6 ALLERGY STATUS TO ANALGESIC AGENT STATUS 03/10/2019 JERRI TALBERT, [place] T Ot Z95.810 PRESENCE OF AUTOMATIC (IMPLANTABLE) CARD 03/12/2019 DORETHA TALBERT, ARISTEO Ot I10 ESSENTIAL (PRIMARY) HYPERTENSION 03/12/2019 DORETHA TALBERT, ARISTEO Ot I25.10 ATHSCL HEART DISEASE OF [place] CORONARY 03/12/2019 COYNE DO, ARISTEO Ot R10.31 RIGHT LOWER QUADRANT PAIN 03/12/2019 COYNE , ARISTEO Ot Z77.22 CNTCT W AND EXPSR TO ENVIRON TOBACCO SMO 03/12/2019 DORETHA TALBERT, ARISTEO Ot Z88.5 ALLERGY STATUS TO NARCOTIC AGENT STATUS 03/12/2019 DORETHA TALBERT, ARISTEO Ot Z88.6 ALLERGY STATUS TO ANALGESIC AGENT STATUS 03/12/2019 COYNE , ARISTEO Ot Z95.810 PRESENCE OF AUTOMATIC (IMPLANTABLE) CARD 03/12/2019 COYNE , ARISTEO Ot Z95.9 PRESENCE OF CARDIAC AND VASCULAR IMPLANT 04/21/2019 NEHA ROSE MD Ot F17.210 NICOTINE DEPENDENCE, CIGARETTES, UNCOMPL 04/21/2019 NEHA ROSE MD Ot I25. 10 ATHSCL HEART DISEASE OF [place] CORONARY 04/21/2019 NEHA ROSE MD Ot R07. 9 CHEST PAIN, UNSPECIFIED 04/21/2019 NEHA ROSE MD Ot Z88. 5 ALLERGY STATUS TO NARCOTIC AGENT STATUS 04/21/2019 NEHA ROSE MD Ot Z88. 6 ALLERGY STATUS TO ANALGESIC AGENT STATUS 04/21/2019 NEHA ROSE MD Ot Z95.810 PRESENCE OF AUTOMATIC (IMPLANTABLE) CARD 04/27/2019 NEHA ROSE MD Ot F17.210 NICOTINE DEPENDENCE, CIGARETTES, UNCOMPL 04/27/2019 NEHA ROSE MD Ot I25. 10 ATHSCL HEART DISEASE OF [place] CORONARY 04/27/2019 NEHA ROSE MD Ot R07. 9 CHEST PAIN, UNSPECIFIED 04/27/2019 NEHA ROSE MD Ot Z88. 5 ALLERGY STATUS TO NARCOTIC AGENT STATUS 04/27/2019 NEHA ROSE MD Ot Z88. 6 ALLERGY STATUS TO ANALGESIC AGENT STATUS 04/27/2019 NEHA ROSE MD Ot Z95.810 PRESENCE OF AUTOMATIC (IMPLANTABLE) CARD 07/16/2019 COYNE DO, ARISTEO Ot I10 ESSENTIAL (PRIMARY) HYPERTENSION 07/16/2019 COYNE DO, ARISTEO Ot I25.2 OLD MYOCARDIAL INFARCTION 07/16/2019 COYNE DO, ARISTEO Ot R03.0 ELEVATED BLOOD-PRESSURE READING, W/O GHADA 07/16/2019 COYNE DO, ARISTEO Ot R07.9 CHEST PAIN, UNSPECIFIED 07/16/2019 COYNE DO, ARISTEO Ot Z77.22 CNTCT W AND EXPSR TO ENVIRON TOBACCO [facility] [place] 07/16/2019 H[place]OWE[place] DO, ARISTEO Ot Z88.5 ALLERGY STATUS TO NARCOTIC AGENT STATUS 07/16/2019 COYNE DO, ARISTEO Ot Z88.6 ALLERGY STATUS TO ANALGESIC AGENT STATUS 07/16/2019 COYNE DO, ARISTEO Ot Z90.710 ACQUIRED ABSENCE OF BOTH CERVIX AND UTER 07/16/2019 HALLOWELL DO, ARISTEO Ot Z95.810 PRESENCE OF AUTOMATIC (IMPLANTABLE) CARD 07/16/2019 HALLOWELL DO, ARITSEO Ot Z98.51 TUBAL LIGATION STATUS 07/18/2019 HALLOWELL DO, ARISTEO Ot I10 ESSENTIAL (PRIMARY) HYPERTENSION 07/18/2019 HALLOWELL DO, ARISTEO Ot I25.2 OLD MYOCARDIAL INFARCTION 07/18/2019 HALLOWELL DO, ARISTEO Ot R03.0 ELEVATED BLOOD-PRESSURE READING, W/O GHADA 07/18/2019 HALLOWELL DO, ARISTEO Ot R07.9 CHEST PAIN, UNSPECIFIED 07/18/2019 HALLOWELL DO, ARISTEO Ot Z77.22 CNTCT W AND EXPSR TO ENVIRON TOBACCO [facility] [place] 07/18/2019 HALLOWELL DO, ARISTEO Ot Z88.5 ALLERGY STATUS TO NARCOTIC AGENT STATUS 07/18/2019 HALLOWELL DO, ARISTEO Ot Z88.6 ALLERGY STATUS TO ANALGESIC AGENT STATUS 07/18/2019 HALLOWELL DO, ARISTEO Ot Z90.710 ACQUIRED ABSENCE OF BOTH CERVIX AND UTER 07/18/2019 HALLOWELL DO, ARISTEO Ot Z95.810 PRESENCE OF AUTOMATIC (IMPLANTABLE) CARD 07/18/2019 COYNE DO, ARISTEO Ot Z98.51 TUBAL LIGATION STATUS 07/19/2019 NAYELY DUNCAN, LAMIN Fox Ot G89.2 9 OTHER CHRONIC PAIN 07/19/2019 LAMIN ADLER MD Ot I10 ESSENTIAL (PRIMARY) HYPERTENSION 07/19/2019 LAMIN ADLER MD Ot I25.2 OLD MYOCARDIAL INFARCTION 07/19/2019 NAYELY DUNCAN, LAMIN Fox Ot R07.8 9 OTHER CHEST PAIN 07/19/2019 LAMIN ADLER MD Ot R07.9 CHEST PAIN, UNSPECIFIED 07/19/2019 LAMIN ADLER MD Ot Z77.2 2 CNTCT W AND EXPSR TO ENVIRON TOBACCO SMO 07/19/2019 LAMIN ADLER MD Ot Z88.5 ALLERGY STATUS TO NARCOTIC AGENT STATUS 07/19/2019 LAMIN ADLER MD Ot Z88.6 ALLERGY STATUS TO ANALGESIC AGENT STATUS 07/19/2019 LAMIN ADLER MD Ot Z90.7 10 ACQUIRED ABSENCE OF BOTH CERVIX AND UTER 07/19/2019 LAMIN ADLER MD Ot Z95.8 10 PRESENCE OF AUTOMATIC (IMPLANTABLE) CARD 07/19/2019 LAMIN ADLER MD Ot Z98.5 1 TUBAL LIGATION STATUS 07/21/2019 LAMIN ADLER MD Ot G89.2 9 OTHER CHRONIC PAIN 07/21/2019 LAMIN ADLER MD Ot I11.0 HYPERTENSIVE HEART DISEASE WITH HEART FA 07/21/2019 LAMIN ADLER MD Ot I25.2 OLD MYOCARDIAL INFARCTION 07/21/2019 LAMIN ADLER MD Ot I50.9 HEART FAILURE, UNSPECIFIED 07/21/2019 LAMIN ADLER MD Ot R07.9 CHEST PAIN, UNSPECIFIED 07/21/2019 LAMIN ADLER MD Ot Z77.2 2 CNTCT W AND EXPSR TO ENVIRON TOBACCO SMO 07/21/2019 LAMIN ADLER MD Ot Z88.5 ALLERGY STATUS TO NARCOTIC AGENT STATUS 07/21/2019 LAMIN ADLER MD Ot Z88.6 ALLERGY STATUS TO ANALGESIC AGENT STATUS 07/21/2019 LAMIN ADLER MD Ot Z90.7 10 ACQUIRED ABSENCE OF BOTH CERVIX AND UTER 07/21/2019 LAMIN ADLER MD Ot Z95.8 10 PRESENCE OF AUTOMATIC (IMPLANTABLE) CARD 07/21/2019 LAMIN ADLER MD Ot Z98.5 1 TUBAL LIGATION STATUS 07/24/2019 LAMIN ADLER MD Ot G89.2 9 OTHER CHRONIC PAIN 07/24/2019 LAMIN ADLER MD Ot I10 ESSENTIAL (PRIMARY) HYPERTENSION 07/24/2019 LAMIN ADLER MD Ot I25.2 OLD MYOCARDIAL INFARCTION 07/24/2019 LAMIN ADLER MD Ot R07.8 9 OTHER CHEST PAIN 07/24/2019 LAMIN ADLER MD Ot R07.9 CHEST PAIN, UNSPECIFIED 07/24/2019 LAMIN ADLER MD Ot Z77.2 2 CNTCT W AND EXPSR TO ENVIRON TOBACCO SMO 07/24/2019 LAMIN ADLER MD Ot Z88.5 ALLERGY STATUS TO NARCOTIC AGENT STATUS 07/24/2019 LAMIN ADLER MD Ot Z88.6 ALLERGY STATUS TO ANALGESIC AGENT STATUS 07/24/2019 LAMIN ADLER MD Ot Z90.7 10 ACQUIRED ABSENCE OF BOTH CERVIX AND UTER 07/24/2019 LAMIN ADLER MD Ot Z95.8 10 PRESENCE OF AUTOMATIC (IMPLANTABLE) CARD 07/24/2019 LAMIN ADLER MD Ot Z98.5 1 TUBAL LIGATION STATUS 07/25/2019 COYNE DO, ARISTEO Ot I10 ESSENTIAL (PRIMARY) HYPERTENSION 07/25/2019 COYNE DO, ARISTEO Ot I25.2 OLD MYOCARDIAL INFARCTION 07/25/2019 COYNE DO, ARISTEO Ot R03.0 ELEVATED BLOOD-PRESSURE READING, W/O GHADA 07/25/2019 COYNE DO, ARISTEO Ot R07.9 CHEST PAIN, UNSPECIFIED 07/25/2019 COYNE DO, ARISTEO Ot Z77.22 CNTCT W AND EXPSR TO ENVIRON TOBACCO SMO 07/25/2019 COYNE DO, ARISTEO Ot Z88.5 ALLERGY STATUS TO NARCOTIC AGENT STATUS 07/25/2019 COYNE DO, ARISTEO Ot Z88.6 ALLERGY STATUS TO ANALGESIC AGENT STATUS 07/25/2019 COYNE DO, ARISTEO Ot Z90.710 ACQUIRED ABSENCE OF BOTH CERVIX AND UTER 07/25/2019 COYNE DO, ARISTEO Ot Z95.810 PRESENCE OF AUTOMATIC (IMPLANTABLE) CARD 07/25/2019 COYNE DO, ARISTEO Ot Z98.51 TUBAL LIGATION STATUS 07/25/2019 LAMIN ADLER MD Ot G89.2 9 OTHER CHRONIC PAIN 07/25/2019 LAMIN ADLER MD Ot I11.0 HYPERTENSIVE HEART DISEASE WITH HEART FA 07/25/2019 LAMIN ADLER MD Ot I25.2 OLD MYOCARDIAL INFARCTION 07/25/2019 LAMIN ADLER MD Ot I50.9 HEART FAILURE, UNSPECIFIED 07/25/2019 LAMIN ADLER MD Ot R07.9 CHEST PAIN, UNSPECIFIED 07/25/2019 LAMIN ADLER MD Ot Z77.2 2 CNTCT W AND EXPSR TO ENVIRON TOBACCO SMO 07/25/2019 LAMIN ADLER MD Ot Z88.5 ALLERGY STATUS TO NARCOTIC AGENT STATUS 07/25/2019 LAMIN ADLER MD Ot Z88.6 ALLERGY STATUS TO ANALGESIC AGENT STATUS 07/25/2019 LAMIN ADLER MD Ot Z90.7 10 ACQUIRED ABSENCE OF BOTH CERVIX AND UTER 07/25/2019 LAMIN ADLER MD Ot Z95.8 10 PRESENCE OF AUTOMATIC (IMPLANTABLE) CARD 07/25/2019 LAMIN ADLER MD Ot Z98.5 1 TUBAL LIGATION STATUS 07/28/2019 LAMIN ADLER MD Ot G89.2 9 OTHER CHRONIC PAIN 07/28/2019 LAMIN ADLER MD Ot I11.0 HYPERTENSIVE HEART DISEASE WITH HEART FA 07/28/2019 LAMIN ADLER MD Ot I25.2 OLD MYOCARDIAL INFARCTION 07/28/2019 LAMIN ADLER MD Ot I50.9 HEART FAILURE, UNSPECIFIED 07/28/2019 LAMIN ADLER MD Ot R07.9 CHEST PAIN, UNSPECIFIED 07/28/2019 LAMIN ADLER MD Ot Z77.2 2 CNTCT W AND EXPSR TO ENVIRON TOBACCO SMO 07/28/2019 LAMIN ADLER MD Ot Z88.5 ALLERGY STATUS TO NARCOTIC AGENT STATUS 07/28/2019 LAMIN ADLER MD Ot Z88.6 ALLERGY STATUS TO ANALGESIC AGENT STATUS 07/28/2019 LAMIN ADLER MD Ot Z90.7 10 ACQUIRED ABSENCE OF BOTH CERVIX AND UTER 07/28/2019 LAMIN ADLER MD Ot Z95.8 10 PRESENCE OF AUTOMATIC (IMPLANTABLE) CARD 07/28/2019 LAMIN ADLER MD Ot Z98.5 1 TUBAL LIGATION STATUS 07/29/2019 CRAIG KHANNA MD Ot F17.210 NICOTINE DEPENDENCE, CIGARETTES, UNCOMPL 07/29/2019 CRAIG KHANNA MD Ot I10 ESSENTIAL (PRIMARY) HYPERTENSION 07/29/2019 CRAIG KHANNA MD Ot I25. 2 OLD MYOCARDIAL INFARCTION 07/29/2019 CRAIG KHANNA MD Ot J18. 9 PNEUMONIA, UNSPECIFIED ORGANISM 07/29/2019 CRAIG KHANNA MD Ot J44. 1 CHRONIC OBSTRUCTIVE PULMONARY DISEASE W 07/29/2019 JEY MD, CRAIG A Ot R07. 9 CHEST PAIN, UNSPECIFIED 07/29/2019 CRAIG KHANNA MD A Ot Z77. 22 CNTCT W AND EXPSR TO ENVIRON TOBACCO SMO 07/29/2019 CRAIG KHANNA MD A Ot Z88. 5 ALLERGY STATUS TO NARCOTIC AGENT STATUS 07/29/2019 CRAIG KHANNA MD A Ot Z88. 6 ALLERGY STATUS TO ANALGESIC AGENT STATUS 07/29/2019 CRAIG KHANNA MD A Ot Z90.710 ACQUIRED ABSENCE OF BOTH CERVIX AND UTER 07/29/2019 CRAIG KHANNA MD A Ot Z95.810 PRESENCE OF AUTOMATIC (IMPLANTABLE) CARD 07/29/2019 CRAIG KHANNA MD A Ot Z98. 51 TUBAL LIGATION STATUS 08/02/2019 CRAIG KHANNA MD A Ot F17.210 NICOTINE DEPENDENCE, CIGARETTES, UNCOMPL 08/02/2019 CRAIG KHANNA MD A Ot I10 ESSENTIAL (PRIMARY) HYPERTENSION 08/02/2019 CRAIG KHANNA MD A Ot I25. 2 OLD MYOCARDIAL INFARCTION 08/02/2019 CRAIG KHANNA MD A Ot J18. 9 PNEUMONIA, UNSPECIFIED ORGANISM 08/02/2019 CRAIG KHANNA MD A Ot J44. 1 CHRONIC OBSTRUCTIVE PULMONARY DISEASE W 08/02/2019 CRAIG KHANNA MD A Ot R07. 9 CHEST PAIN, UNSPECIFIED 08/02/2019 CRAIG KHANNA MD A Ot Z77. 22 CNTCT W AND EXPSR TO ENVIRON TOBACCO SMO 08/02/2019 CRAIG KHANNA MD A Ot Z88. 5 ALLERGY STATUS TO NARCOTIC AGENT STATUS 08/02/2019 CRAIG KHANNA MD A Ot Z88. 6 ALLERGY STATUS TO ANALGESIC AGENT STATUS 08/02/2019 CRAIG KHANNA MD A Ot Z90.710 ACQUIRED ABSENCE OF BOTH CERVIX AND UTER 08/02/2019 CRAIG KHANNA MD A Ot Z95.810 PRESENCE OF AUTOMATIC (IMPLANTABLE) CARD 08/02/2019 CRAIG KHANNA MD A Ot Z98. 51 TUBAL LIGATION STATUS 08/08/2019 CRAIG KHANNA MD A Ot F17.210 NICOTINE DEPENDENCE, CIGARETTES, UNCOMPL 08/08/2019 CRAIG KHANNA MD A Ot I10 ESSENTIAL (PRIMARY) HYPERTENSION 08/08/2019 CRAIG KHANNA MD A Ot I25. 2 OLD MYOCARDIAL INFARCTION 08/08/2019 CRAIG KHANNA MD A Ot J18. 9 PNEUMONIA, UNSPECIFIED ORGANISM 08/08/2019 CRAIG KHANNA MD Ot J44. 1 CHRONIC OBSTRUCTIVE PULMONARY DISEASE W 08/08/2019 CRAIG KHANNA MD Ot R07. 9 CHEST PAIN, UNSPECIFIED 08/08/2019 CRAIG KHANNA MD Ot Z77. 22 CNTCT W AND EXPSR TO ENVIRON TOBACCO SMO 08/08/2019 CRAIG KHANNA MD Ot Z88. 5 ALLERGY STATUS TO NARCOTIC AGENT STATUS 08/08/2019 CRAIG KHANNA MD Ot Z88. 6 ALLERGY STATUS TO ANALGESIC AGENT STATUS 08/08/2019 CRAIG KHANNA MD Ot Z90.710 ACQUIRED ABSENCE OF BOTH CERVIX AND UTER 08/08/2019 CRAIG KHANNA MD Ot Z95.810 PRESENCE OF AUTOMATIC (IMPLANTABLE) CARD 08/08/2019 CRAIG KHANNA MD Ot Z98. 51 TUBAL LIGATION STATUS 08/15/2019 MARIAJOSE PEREZ MD Ot F17.210 NICOTINE DEPENDENCE, CIGARETTES, UNCOMPL 08/15/2019 MARIAJOSE PEREZ MD Ot G47.34 IDIO SLEEP RELATED NONOBSTRUCTIVE ALVEOL 08/15/2019 MARIAJOSE PEREZ MD Ot I10 ESSENTIAL (PRIMARY) HYPERTENSION 08/15/2019 MARIAJOSE PEREZ MD Ot I21 .4 NON-ST ELEVATION (NSTEMI) MYOCARDIAL INF 08/15/2019 MARIAJOSE PEREZ MD Ot I25 .2 OLD MYOCARDIAL INFARCTION 08/15/2019 MARIAJOSE PEREZ MD Ot J44 .9 CHRONIC OBSTRUCTIVE PULMONARY DISEASE, U 08/15/2019 MARIAJOSE PEREZ MD Ot R55 SYNCOPE AND COLLAPSE 08/15/2019 MARIAJOSE PEREZ MD Ot Z88 .6 ALLERGY STATUS TO ANALGESIC AGENT STATUS 08/15/2019 MARIAJOSE PEREZ MD Ot Z95.810 PRESENCE OF AUTOMATIC (IMPLANTABLE) CARD 08/15/2019 MARIAJOSE PEREZ MD Ot E78.00 PURE HYPERCHOLESTEROLEMIA, UNSPECIFIED 08/15/2019 MARIAJOSE PEREZ MD Ot E78 .2 MIXED HYPERLIPIDEMIA 08/15/2019 MARIAJOSE PEREZ MD Ot F17.210 NICOTINE DEPENDENCE, CIGARETTES, UNCOMPL 08/15/2019 MARIAJOSE PEREZ MD Ot G47.34 IDIO SLEEP RELATED NONOBSTRUCTIVE ALVEOL 08/15/2019 MARIAJOSE PEREZ MD Ot I10 ESSENTIAL (PRIMARY) HYPERTENSION 08/15/2019 MARIAJOSE PEREZ MD Ot I21 .4 NON-ST ELEVATION (NSTEMI) MYOCARDIAL INF 08/15/2019 MARIAJOSE PEREZ MD Ot I25 .2 OLD MYOCARDIAL INFARCTION 08/15/2019 MARIAJOSE PEREZ MD Ot I48.91 UNSPECIFIED ATRIAL FIBRILLATION 08/15/2019 MARIAJOSE PEREZ MD Ot J44 .9 CHRONIC OBSTRUCTIVE PULMONARY DISEASE, U 08/15/2019 MARIAJOSE PEREZ MD Ot J98.11 ATELECTASIS 08/15/2019 MARIAJOSE PEREZ MD Ot K21 .9 GASTRO-ESOPHAGEAL REFLUX DISEASE WITHOUT 08/15/2019 MARIAJOSE PEREZ MD Ot K22 .8 OTHER SPECIFIED DISEASES OF ESOPHAGUS 08/15/2019 MARIAJOSE PEREZ MD Ot K44 .9 DIAPHRAGMATIC HERNIA WITHOUT OBSTRUCTION 08/15/2019 MARIAJOSE PEREZ MD Ot R07.89 OTHER CHEST PAIN 08/15/2019 MARIAJOSE PEREZ MD Ot R09.02 HYPOXEMIA 08/15/2019 MARIAJOSE PEREZ MD Ot R55 SYNCOPE AND COLLAPSE 08/15/2019 MARIAJOSE PEREZ MD Ot Z88 .6 ALLERGY STATUS TO ANALGESIC AGENT STATUS 08/15/2019 MARIAJOSE PEREZ MD Ot Z95.810 PRESENCE OF AUTOMATIC (IMPLANTABLE) CARD 09/03/2019 ALEXANDRE MATA MD Ot Z01.81 8 ENCOUNTER FOR OTHER PREPROCEDURAL EXAMIN 09/06/2019 ALEXANDRE MATA MD Ot E78.00 PURE HYPERCHOLESTEROLEMIA, UNSPECIFIED 09/06/2019 ALEXANDRE MATA MD Ot E78.5 HYPERLIPIDEMIA, UNSPECIFIED 09/06/2019 ALEXANDRE MATA MD Ot F17.20 0 NICOTINE DEPENDENCE, UNSPECIFIED, UNCOMP 09/06/2019 ALEXANDRE MATA MD Ot F41.9 ANXIETY DISORDER, UNSPECIFIED 09/06/2019 ALEXANDRE MATA MD Ot G89.29 OTHER CHRONIC PAIN 09/06/2019 ALEXANDRE MATA MD Ot I10 ESSENTIAL (PRIMARY) HYPERTENSION 09/06/2019 ALEXANDRE MATA MD Ot I25.10 ATHSCL HEART DISEASE OF [place] CORONARY 09/06/2019 ALEXANDRE MATA MD Ot I25.2 OLD MYOCARDIAL INFARCTION 09/06/2019 ALEXANDRE MATA MD, Ot J44.9 CHRONIC OBSTRUCTIVE PULMONARY DISEASE, U 09/06/2019 ALEXANDRE MATA MD, Ot K21.0 GASTRO-ESOPHAGEAL REFLUX DISEASE WITH ES 09/06/2019 ALEXANDRE MATA MD, Ot K29.50 UNSPECIFIED CHRONIC GASTRITIS WITHOUT BL 09/06/2019 ALEXANDRE MATA MD, Ot K29.80 DUODENITIS WITHOUT BLEEDING 09/06/2019 ALEXANDRE MATA MD, Ot K31.89 OTHER DISEASES OF STOMACH AND DUODENUM 09/06/2019 ALEXANDRE MATA MD, Ot K44.9 DIAPHRAGMATIC HERNIA WITHOUT OBSTRUCTION 09/06/2019 ALEXANDRE MATA MD, Ot M54.9 DORSALGIA, UNSPECIFIED 09/06/2019 ALEXANDRE MATA MD, Ot Z79.89 9 OTHER MANAGER CULINARY (CURRENT) DRUG THERAPY 09/06/2019 ALEXANDRE MATA MD, Ot Z80.0 FAMILY HISTORY OF MALIGNANT NEOPLASM OF 09/06/2019 ALEXANDRE MATA MD, Ot Z80.49 FAMILY HISTORY OF MALIGNANT NEOPLASM OF 09/06/2019 ALEXANDRE MATA MD, Ot Z82.49 FAMILY HX OF ISCHEM HEART DIS AND OTH DI 09/06/2019 ALEXANDRE MATA MD, Ot Z88.5 ALLERGY STATUS TO NARCOTIC AGENT STATUS 09/06/2019 ALEXANDRE MATA MD, Ot Z88.6 ALLERGY STATUS TO ANALGESIC AGENT STATUS 09/06/2019 ALEXANDRE MATA MD, Ot Z90.49 ACQUIRED ABSENCE OF OTHER SPECIFIED PART 09/06/2019 ALEXANDRE MATA MD, Ot Z90.71 0 ACQUIRED ABSENCE OF BOTH CERVIX AND UTER 09/06/2019 ALEXANDRE MATA MD, Ot Z95.81 0 PRESENCE OF AUTOMATIC (IMPLANTABLE) CARD 09/08/2019 ALEXANDRE MATA MD Ot Z01.81 8 ENCOUNTER FOR OTHER PREPROCEDURAL EXAMIN 09/08/2019 MCKENNA SOLANO MD Ot E78. 00 PURE HYPERCHOLESTEROLEMIA, UNSPECIFIED 09/08/2019 MCKENNA SOLANO MD Ot F17.210 NICOTINE DEPENDENCE, CIGARETTES, UNCOMPL 09/08/2019 MCKENNA SOLANO MD Ot I10 ESSENTIAL (PRIMARY) HYPERTENSION 09/08/2019 MCKENNA SOLANO MD Ot I25. 2 OLD MYOCARDIAL INFARCTION 09/08/2019 MCKENNA SOLANO MD Ot K21. 9 GASTRO-ESOPHAGEAL REFLUX DISEASE WITHOUT 09/08/2019 MCKENNA SOLANO MD, Ot M54. 5 LOW BACK PAIN 09/08/2019 MCKENNA SOLANO MD Ot Z88. 5 ALLERGY STATUS TO NARCOTIC AGENT STATUS 09/08/2019 MCKENNA SOLANO MD Ot Z88. 6 ALLERGY STATUS TO ANALGESIC AGENT STATUS 09/08/2019 MCKENNA SOLANO MD Ot Z90.710 ACQUIRED ABSENCE OF BOTH CERVIX AND UTER 09/08/2019 MCKENNA SOLANO MD Ot Z95.810 PRESENCE OF AUTOMATIC (IMPLANTABLE) CARD 09/08/2019 MCKENNA SOLANO MD Ot Z98. 51 TUBAL LIGATION STATUS 09/11/2019 CRAIG KHANNA MD Ot E78. 00 PURE HYPERCHOLESTEROLEMIA, UNSPECIFIED 09/11/2019 CRAIG KHANNA MD Ot E83. 42 HYPOMAGNESEMIA 09/11/2019 CRAIG KHANNA MD Ot E87. 6 HYPOKALEMIA 09/11/2019 CRAIG KHANNA MD Ot I10 ESSENTIAL (PRIMARY) HYPERTENSION 09/11/2019 CRAIG KHANNA MD Ot I25. 2 OLD MYOCARDIAL INFARCTION 09/11/2019 CRAIG KHANNA MD A Ot K21. 9 GASTRO-ESOPHAGEAL REFLUX DISEASE WITHOUT 09/11/2019 CRAIG KHANNA MD A Ot T82.191[facility] COMPL OF CARDIAC PULSE GENERATOR (B 09/11/2019 CRAIG KHANNA MD Ot Z77. 22 CNTCT W AND EXPSR TO ENVIRON TOBACCO SMO 09/11/2019 CRAIG KHANNA MD Ot Z88. 6 ALLERGY STATUS TO ANALGESIC AGENT STATUS 09/11/2019 CRAIG KHANNA MD Ot Z90.710 ACQUIRED ABSENCE OF BOTH CERVIX AND UTER 09/11/2019 CRAIG KHANNA MD Ot Z98. 51 TUBAL LIGATION STATUS 09/13/2019 CRAIG KHANNA MD A Ot E78. 00 PURE HYPERCHOLESTEROLEMIA, UNSPECIFIED 09/13/2019 CRAIG KHANNA MD A Ot E83. 42 HYPOMAGNESEMIA 09/13/2019 CRAIG KHANNA MD A Ot E87. 6 HYPOKALEMIA 09/13/2019 CRAIG KHANNA MD A Ot I10 ESSENTIAL (PRIMARY) HYPERTENSION 09/13/2019 CRAIG KHANNA MD A Ot I25. 2 OLD MYOCARDIAL INFARCTION 09/13/2019 CRAIG KHANNA MD A Ot K21. 9 GASTRO-ESOPHAGEAL REFLUX DISEASE WITHOUT 09/13/2019 CRAIG KHANNA MD A Ot T82.191[facility] COMPL OF CARDIAC PULSE GENERATOR (B 09/13/2019 JEY DUNCAN, CRAIG Ozuna Ot Z77. 22 CNTCT W AND EXPSR TO ENVIRON TOBACCO SMO 09/13/2019 CRAIG KHANNA MD, Ot Z88. 6 ALLERGY STATUS TO ANALGESIC AGENT STATUS 09/13/2019 CRAIG KHANNA MD, Ot Z90.710 ACQUIRED ABSENCE OF BOTH CERVIX AND UTER 09/13/2019 CRAIG KHANNA MD, Ot Z98. 51 TUBAL LIGATION STATUS 09/16/2019 ALEXANDRE MATA MD, Ot E78.00 PURE HYPERCHOLESTEROLEMIA, UNSPECIFIED 09/16/2019 ALEXANDRE MATA MD, Ot E78.5 HYPERLIPIDEMIA, UNSPECIFIED 09/16/2019 ALEXANDRE MATA MD, Ot F17.20 0 NICOTINE DEPENDENCE, UNSPECIFIED, UNCOMP 09/16/2019 ALEXANDRE MATA MD, Ot F41.9 ANXIETY DISORDER, UNSPECIFIED 09/16/2019 ALEXANDRE MATA MD, Ot G89.29 OTHER CHRONIC PAIN 09/16/2019 ALEXANDRE MATA MD, Ot I10 ESSENTIAL (PRIMARY) HYPERTENSION 09/16/2019 ALEXANDRE MATA MD, Ot I25.10 ATHSCL HEART DISEASE OF [place] CORONARY 09/16/2019 ALEXANDRE MATA MD, Ot I25.2 OLD MYOCARDIAL INFARCTION 09/16/2019 ALEXANDRE MATA MD, Ot J44.9 CHRONIC OBSTRUCTIVE PULMONARY DISEASE, U 09/16/2019 ALEXANDRE MATA MD, Ot K21.0 GASTRO-ESOPHAGEAL REFLUX DISEASE WITH ES 09/16/2019 ALEXANDRE MATA MD, Ot K29.50 UNSPECIFIED CHRONIC GASTRITIS WITHOUT BL 09/16/2019 ALEXANDRE MATA MD, Ot K29.80 DUODENITIS WITHOUT BLEEDING 09/16/2019 ALEXANDRE MATA MD, Ot K31.89 OTHER DISEASES OF STOMACH AND DUODENUM 09/16/2019 ALEXANDRE MATA MD, Ot K44.9 DIAPHRAGMATIC HERNIA WITHOUT OBSTRUCTION 09/16/2019 ALEXANDRE MATA MD, Ot M54.9 DORSALGIA, UNSPECIFIED 09/16/2019 ALEXANDRE MATA MD, Ot Z79.89 9 OTHER [facility] (CURRENT) DRUG THERAPY 09/16/2019 ALEXANDRE MATA MD, Ot Z80.0 FAMILY HISTORY OF MALIGNANT NEOPLASM OF 09/16/2019 ALEXANDRE MATA MD, Ot Z80.49 FAMILY HISTORY OF MALIGNANT NEOPLASM OF 09/16/2019 ALEXANDRE MATA MD, Ot Z82.49 FAMILY HX OF ISCHEM HEART DIS AND OTH DI 09/16/2019 ALEXANDRE MATA MD, Ot Z88.5 ALLERGY STATUS TO NARCOTIC AGENT STATUS 09/16/2019 ALEXANDRE MATA MD, Ot Z88.6 ALLERGY STATUS TO ANALGESIC AGENT STATUS 09/16/2019 ALEXANDRE MATA MD, Ot Z90.49 ACQUIRED ABSENCE OF OTHER SPECIFIED PART 09/16/2019 ALEXANDRE MATA MD, Ot Z90.71 0 ACQUIRED ABSENCE OF BOTH CERVIX AND UTER 09/16/2019 ALEXANDRE MATA MD, Ot Z95.81 0 PRESENCE OF AUTOMATIC (IMPLANTABLE) CARD 09/16/2019 ROVENSTINE DO, CHEVY L Ot E78.00 PURE HYPERCHOLESTEROLEMIA, UNSPECIFIED 09/16/2019 ROVENSTINE DO, CHEVY L Ot F17.210 NICOTINE DEPENDENCE, CIGARETTES, UNCOMPL 09/16/2019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 (mass/volume ) 12 mg/dL 7-18 Serum or plasma creatinine measurement (mass/volume) 0.91 mg/dL 0.60-1.30 Serum or plasma urea nitrogen/creatinine mass ratio 13 NRG Serum or plasma creatinine measurement w ith calculation of estimated glomerular filtration rate > NRG Serum or plasma glucose measurement (mass/volume) 154 mg/dL 70-105 Serum or plasma calcium measurement (mass/volume) 9.1 mg/dL 8.5-10.1 Serum or plasma total bilirubin measurement (mass/volu me) 0.2 mg/dL 0.1-1.0 Serum or plasma alkaline phosphatase eugene surement (enzymatic activity/volume) 104 U/L 40-136 Serum or plasma aspartate aminotransfera se measurement (enzymatic activity/volume) 16 U/L 5-34 Serum or plasma alanine aminotransferase measurement (enzymatic activity/volume) 14 U/L 0-55 Serum or plasma protein measurement (mass/volume) 6.7 g/dL 6.4-8.2 Serum or plasma albumin measurement (mass/volume) 4.1 g/dL 3.2-4.5 CALCIUM CORRECTED 9.0 mg/dL 8.5-10.1 Magnesium - 07/18/19 21:00 Magnesium 1.6 mg/dL 1.6-2.4 TROPONIN I FS - 07/18/19 21:00 TROPONIN I FS < 0.30 <0.30 PROBNP FS - 07/18/19 21:00 PROBNP FS 213.2 pg/mL <75.0 Complete urinalysis with reflex to cultu re - 07/18/19 21:15 Urine color determination YELLOW NRG Urine clarity determination SL CLOUDY N RG Urine pH measurement by test strip 6.5 5-9 Specific gravity of urine by test strip 1.020 1.016-1.022 Urine protein assay by test strip, semi-quantitative NEGATIVE NEGATIVE Urine glucose detection by automated test strip NE GATIVE NEGATIVE Erythrocytes detection in urine sediment by light micr oscopy NEGATIVE NEGATIVE Urine ketones detection by automated test strip NE GATIVE NEGATIVE Urine nitrite detection by test strip NEGATIVE NEGATIVE Urine total bilirubin detection by test strip NEGA TIVE NEGATIVE Urine urobilinogen measurement by automated test strip (mass/volume) 0.2 mg/dL NORMAL Urine leukocyte esterase detection by dipstick NEG ATIVE NEGATIVE Automated urine sediment erythrocyte cou nt by microscopy (number/high power field) NONE NRG Automated urine sediment leukocyte count by microscopy (number/high power field) NONE NRG Bacteria detection in urine sediment by light microsco py NONE NRG Squamous epithelial cells detection in u rine sediment by light microscopy >50 NRG Crystals detection in urine sediment by light microsco py PRESENT NRG Casts detection in urine sediment by light microscopy NONE NRG Mucus detection in urine sediment by light microscopy NEGATIVE NRG Complete urinalysis with reflex to culture NO NRG Amorphous sediment detection in urine sediment by ligh t microscopy FEW HAO URATES NRG Calcium oxalate crystals detection in ur ine sediment by light microscopy MODERATE NRG TROPONIN I FS - 07/18/19 22:45 TROPONIN I FS < 0.30 <0.30 Complete blood count (CBC) with automate d white blood cell (WBC) differential - 07/20/19 21:56 Blood leukocytes automated count (number/volume) 7.3 10*3/uL 4.3-11.0 Blood erythrocytes automated count (number/volume) 4.71 10*6/uL 4.35-5.85 Venous blood hemoglobin measurement (mass/volume) 15.0 g/dL 11.5-16.0 Blood hematocrit (volume fraction) 44 % 35-52 Automated erythrocyte mean corpuscular volume 94 [ foz_us] 80-99 Automated erythrocyte mean corpuscular h emoglobin (mass per erythrocyte) 32 pg 25-34 Automated erythrocyte mean corpuscular h emoglobin concentration measurement (mass/volume) 34 g/dL 32-36 Automated erythrocyte distribution width ratio 13. 0 % 10.0- 14.5 Automated blood platelet count (count/volume) 251 10*3/uL 130-400 Automated blood platelet mean volume measurement 9.9 [foz_us] 7.4-10.4 Automated blood neutrophils/100 leukocytes 65 % 42-75 Automated blood lymphocytes/100 leukocytes 27 % 12-44 Blood monocytes/100 leukocytes 5 % 0-12 Automated blood eosinophils/100 leukocytes 1 % 0-10 Automated blood basophils/100 leukocytes 0 % 0-10 Blood neutrophils automated count (number/volume) 4.7 10*3 1.8-7.8 Blood lymphocytes automated count (number/volume) 2.0 10*3 1.0-4.0 Blood monocytes automated count (number/volume) 0. 4 10*3 0.0-1.0 Automated eosinophil count 0.1 10*3/uL 0 .0-0.3 Automated blood basophil count (count/volume) 0.0 10*3/uL 0.0-0.1 PT panel in platelet poor plasma by coag ulation assay - 07/20/19 21:56 Prothrombin time (PT) in platelet poor plasma by coagu lation assay 12.7 s 12.2-14.7 INR in platelet poor plasma or blood by coagulation as say 0.9 0.8-1.4 Activated partial thromboplastin time (a PTT) in platelet poor plasma bycoagulation assay - 07/20/19 21:56 Activated partial thromboplastin time (a PTT) in platelet poor plasma bycoagulation assay 27 s 24-35 TROPONIN I FS - 07/20/19 21:56 TROPONIN I FS < 0.30 <0.30 Comprehensive metabolic panel - 07/20/19 21:56 Serum or plasma sodium measurement (moles/volume) 141 mmol/L 135-145 Serum or plasma potassium measurement (moles/volume) 3.0 mmol/L 3.6-5.0 Serum or plasma chloride measurement (moles/volume) 104 mmol/L 98-107 Carbon dioxide 23 mmol/L 21-32 Serum or plasma anion gap determination (moles/volume) 14 mmol/L 5-14 Serum or plasma urea nitrogen measurement (mass/volume ) 8 mg/dL 7-18 Serum or plasma creatinine measurement (mass/volume) 0.61 mg/dL 0.60-1.30 Serum or plasma urea nitrogen/creatinine mass ratio 13 NRG Serum or plasma creatinine measurement w ith calculation of estimated glomerular filtration rate > NRG Serum or plasma glucose measurement (mass/volume) 145 mg/dL 70-105 Serum or plasma calcium measurement (mass/volume) 9.2 mg/dL 8.5-10.1 Serum or plasma total bilirubin measurement (mass/volu me) 0.3 mg/dL 0.1-1.0 Serum or plasma alkaline phosphatase eugene surement (enzymatic activity/volume) 121 U/L 40-136 Serum or plasma aspartate aminotransfera se measurement (enzymatic activity/volume) 15 U/L 5-34 Serum or plasma alanine aminotransferase measurement (enzymatic activity/volume) 16 U/L 0-55 Serum or plasma protein measurement (mass/volume) 7.5 g/dL 6.4-8.2 Serum or plasma albumin measurement (mass/volume) 4.5 g/dL 3.2-4.5 CALCIUM CORRECTED 8.8 mg/dL 8.5-10.1 Magnesium - 07/20/19 21:56 Magnesium 1.7 mg/dL 1.6-2.4 PROBNP FS - 07/20/19 21:56 PROBNP FS 1229.0 pg/mL <75.0 Complete blood count (CBC) with automate d white blood cell (WBC) differential - 07/29/19 19:29 Blood leukocytes automated count (number/volume) 8.2 10*3/uL 4.3-11.0 Blood erythrocytes automated count (number/volume) 4.27 10*6/uL 4.35-5.85 Venous blood hemoglobin measurement (mass/volume) 13.5 g/dL 11.5-16.0 Blood hematocrit (volume fraction) 41 % 35-52 Automated erythrocyte mean corpuscular volume 95 [ foz_us] 80-99 Automated erythrocyte mean corpuscular h emoglobin (mass per erythrocyte) 32 pg 25-34 Automated erythrocyte mean corpuscular h emoglobin concentration measurement (mass/volume) 33 g/dL 32-36 Automated erythrocyte distribution width ratio 13. 0 % 10.0- 14.5 Automated blood platelet count (count/volume) 294 10*3/uL 130-400 Automated blood platelet mean volume measurement 10.4 [foz_us] 7.4-10.4 Automated blood neutrophils/100 leukocytes 60 % 42-75 Automated blood lymphocytes/100 leukocytes 33 % 12-44 Blood monocytes/100 leukocytes 6 % 0-12 Automated blood eosinophils/100 leukocytes 1 % 0-10 Automated blood basophils/100 leukocytes 0 % 0-10 Blood neutrophils automated count (number/volume) 4.9 10*3 1.8-7.8 Blood lymphocytes automated count (number/volume) 2.7 10*3 1.0-4.0 Blood monocytes automated count (number/volume) 0. 5 10*3 0.0-1.0 Automated eosinophil count 0.1 10*3/uL 0 .0-0.3 Automated blood basophil count (count/volume) 0.0 10*3/uL 0.0-0.1 Comprehensive metabolic panel - 07/29/19 19:29 Serum or plasma sodium measurement (moles/volume) 139 mmol/L 135-145 Serum or plasma potassium measurement (moles/volume) 3.4 mmol/L 3.6-5.0 Serum or plasma chloride measurement (moles/volume) 101 mmol/L 98-107 Carbon dioxide 24 mmol/L 21-32 Serum or plasma anion gap determination (moles/volume) 14 mmol/L 5-14 Serum or plasma urea nitrogen measurement (mass/volume ) 12 mg/dL 7-18 Serum or plasma creatinine measurement (mass/volume) 0.71 mg/dL 0.60-1.30 Serum or plasma urea nitrogen/creatinine mass ratio 17 NRG Serum or plasma creatinine measurement w ith calculation of estimated glomerular filtration rate > NRG Serum or plasma glucose measurement (mass/volume) 116 mg/dL 70-105 Serum or plasma calcium measurement (mass/volume) 9.2 mg/dL 8.5-10.1 Serum or plasma total bilirubin measurement (mass/volu me) 0.2 mg/dL 0.1-1.0 Serum or plasma alkaline phosphatase eugene surement (enzymatic activity/volume) 126 U/L 40-136 Serum or plasma aspartate aminotransfera se measurement (enzymatic activity/volume) 11 U/L 5-34 Serum or plasma alanine aminotransferase measurement (enzymatic activity/volume) 13 U/L 0-55 Serum or plasma protein measurement (mass/volume) 7.4 g/dL 6.4-8.2 Serum or plasma albumin measurement (mass/volume) 4.3 g/dL 3.2-4.5 CALCIUM CORRECTED 9.0 mg/dL 8.5-10.1 Magnesium - 07/29/19 19:29 Magnesium 1.8 mg/dL 1.6-2.4 TROPONIN I FS - 07/29/19 19:29 TROPONIN I FS < 0.30 <0.30 PT panel in platelet poor plasma by coag ulation assay - 08/13/19 20:30 Prothrombin time (PT) in platelet poor plasma by coagu lation assay 12.2 s 12.2-14.7 INR in platelet poor plasma or blood by coagulation as say 0.9 0.8-1.4 Activated partial thromboplastin time (a PTT) in platelet poor plasma bycoagulation assay - 08/13/19 20:30 Activated partial thromboplastin time (a PTT) in platelet poor plasma bycoagulation assay 26 s 24-35 TROPONIN I FS - 08/13/19 20:30 TROPONIN I FS 0.30 ng/mL <0.30 PROBNP FS - 08/13/19 20:30 PROBNP FS 135.7 pg/mL <75.0 Comprehensive metabolic panel - 08/13/19 20:30 Serum or plasma sodium measurement (moles/volume) 138 mmol/L 135-145 Serum or plasma potassium measurement (moles/volume) 3.3 mmol/L 3.6-5.0 Serum or plasma chloride measurement (moles/volume) 102 mmol/L 98-107 Carbon dioxide 20 mmol/L 21-32 Serum or plasma anion gap determination (moles/volume) 16 mmol/L 5-14 Serum or plasma urea nitrogen measurement (mass/volume ) 11 mg/dL 7-18 Serum or plasma creatinine measurement (mass/volume) 0.75 mg/dL 0.60-1.30 Serum or plasma urea nitrogen/creatinine mass ratio 15 NRG Serum or plasma creatinine measurement w ith calculation of estimated glomerular filtration rate > NRG Serum or plasma glucose measurement (mass/volume) 142 mg/dL 70-105 Serum or plasma calcium measurement (mass/volume) 9.7 mg/dL 8.5-10.1 Serum or plasma total bilirubin measurement (mass/volu me) 0.2 mg/dL 0.1-1.0 Serum or plasma alkaline phosphatase eugene surement (enzymatic activity/volume) 116 U/L 40-136 Serum or plasma aspartate aminotransfera se measurement (enzymatic activity/volume) 13 U/L 5-34 Serum or plasma alanine aminotransferase measurement (enzymatic activity/volume) 17 U/L 0-55 Serum or plasma protein measurement (mass/volume) 7.4 g/dL 6.4-8.2 Serum or plasma albumin measurement (mass/volume) 4.6 g/dL 3.2-4.5 Magnesium - 08/13/19 20:30 Magnesium 1.8 mg/dL 1.6-2.4 Myoglobin, serum - 08/13/19 20:30 Myoglobin, serum 21.0 ng/mL 10.0-92.0 Complete blood count (CBC) with automate d white blood cell (WBC) differential - 08/13/19 20:30 Blood leukocytes automated count (number/volume) 10.8 10*3/uL 4.3-11.0 Blood erythrocytes automated count (number/volume) 4.64 10*6/uL 4.35-5.85 Venous blood hemoglobin measurement (mass/volume) 14.7 g/dL 11.5-16.0 Blood hematocrit (volume fraction) 43 % 35-52 Automated erythrocyte mean corpuscular volume 93 [ foz_us] 80-99 Automated erythrocyte mean corpuscular h emoglobin (mass per erythrocyte) 32 pg 25-34 Automated erythrocyte mean corpuscular h emoglobin concentration measurement (mass/volume) 34 g/dL 32-36 Automated erythrocyte distribution width ratio 13. 0 % 10.0- 14.5 Automated blood platelet count (count/volume) 274 10*3/uL 130-400 Automated blood platelet mean volume measurement 9.9 [foz_us] 7.4-10.4 Automated blood neutrophils/100 leukocytes 58 % 42-75 Automated blood lymphocytes/100 leukocytes 34 % 12-44 Blood monocytes/100 leukocytes 6 % 0-12 Automated blood eosinophils/100 leukocytes 2 % 0-10 Automated blood basophils/100 leukocytes 0 % 0-10 Blood neutrophils automated count (number/volume) 6.3 10*3 1.8-7.8 Blood lymphocytes automated count (number/volume) 3.7 10*3 1.0-4.0 Blood monocytes automated count (number/volume) 0. 6 10*3 0.0-1.0 Automated eosinophil count 0.2 10*3/uL 0 .0-0.3 Automated blood basophil count (count/volume) 0.0 10*3/uL 0.0-0.1 TROPONIN I FS - 08/13/19 22:50 TROPONIN I FS 0.59 ng/mL <0.30 Serum or plasma troponin i.cardiac measu rement (mass/volume) - 08/14/19 02:35 Serum or plasma troponin i.cardiac measurement (mass/v olume) < ng/mL <0.028 Serum or plasma phosphate measurement (m ass/volume) - 08/14/19 05:34 Serum or plasma phosphate measurement (mass/volume) 3.0 mg/dL 2.3-4.7 Magnesium - 08/14/19 05:34 Magnesium 1.8 mg/dL 1.6-2.4 Complete blood count (CBC) with automate d white blood cell (WBC) differential - 08/14/19 05:37 Blood leukocytes automated count (number/volume) 10.1 10*3/uL 4.3-11.0 Blood erythrocytes automated count (number/volume) 4.37 10*6/uL 4.35-5.85 Venous blood hemoglobin measurement (mass/volume) 13.6 g/dL 11.5-16.0 Blood hematocrit (volume fraction) 41 % 35-52 Automated erythrocyte mean corpuscular volume 94 [ foz_us] 80-99 Automated erythrocyte mean corpuscular h emoglobin (mass per erythrocyte) 31 pg 25-34 Automated erythrocyte mean corpuscular h emoglobin concentration measurement (mass/volume) 33 g/dL 32-36 Automated erythrocyte distribution width ratio 13. 3 % 10.0- 14.5 Automated blood platelet count (count/volume) 237 10*3/uL 130-400 Automated blood platelet mean volume measurement 10.0 [foz_us] 7.4-10.4 Automated blood neutrophils/100 leukocytes 48 % 42-75 Automated blood lymphocytes/100 leukocytes 45 % 12-44 Blood monocytes/100 leukocytes 6 % 0-12 Automated blood eosinophils/100 leukocytes 2 % 0-10 Automated blood basophils/100 leukocytes 0 % 0-10 Blood neutrophils automated count (number/volume) 4.8 10*3 1.8-7.8 Blood lymphocytes automated count (number/volume) 4.5 10*3 1.0-4.0 Blood monocytes automated count (number/volume) 0. 6 10*3 0.0-1.0 Automated eosinophil count 0.2 10*3/uL 0 .0-0.3 Automated blood basophil count (count/volume) 0.0 10*3/uL 0.0-0.1 Whole blood basic metabolic panel - 07/18 05:37 Serum or plasma sodium measurement (moles/volume) 140 mmol/L 135-145 Serum or plasma potassium measurement (moles/volume) 3.7 mmol/L 3.6-5.0 Serum or plasma chloride measurement (moles/volume) 107 mmol/L 98-107 Carbon dioxide 21 mmol/L 21-32 Serum or plasma anion gap determination (moles/volume) 12 mmol/L 5-14 Serum or plasma urea nitrogen measurement (mass/volume ) 12 mg/dL 7-18 Serum or plasma creatinine measurement (mass/volume) 0.72 mg/dL 0.60-1.30 Serum or plasma urea nitrogen/creatinine mass ratio 17 NRG Serum or plasma creatinine measurement w ith calculation of estimated glomerular filtration rate > NRG Serum or plasma glucose measurement (mass/volume) 103 mg/dL 70-105 Serum or plasma calcium measurement (mass/volume) 8.8 mg/dL 8.5-10.1 Activated partial thromboplastin time (a PTT) in platelet poor plasma bycoagulation assay - 08/14/19 05:37 Activated partial thromboplastin time (a PTT) in platelet poor plasma bycoagulation assay 58 s 24-35 Lipid 1996 panel - 08/15/19 05:31 Serum or plasma triglyceride measurement (mass/volume) 193 mg/dL <150 Serum or plasma cholesterol measurement (mass/volume) 250 mg/dL < 200 Serum or plasma cholesterol in HDL measurement (mass/v olume) 36 mg/dL 40-60 Cholesterol in LDL [mass/volume] in serum or plasma by direct assay 190 mg/dL 1-129 Serum or plasma cholesterol in VLDL measurement (mass/ volume) 39 mg/dL 5-40 Complete urinalysis with reflex to cultu re - 09/08/19 18:07 Urine color determination YELLOW NRG Urine clarity determination SLT CLOUDY NRG Urine pH measurement by test strip 6.5 5-9 Specific gravity of urine by test strip 1.025 1.016-1.022 Urine protein assay by test strip, semi-quantitative NEGATIVE NEGATIVE Urine glucose detection by automated test strip NE GATIVE NEGATIVE Erythrocytes detection in urine sediment by light micr oscopy NEGATIVE NEGATIVE Urine ketones detection by automated test strip TR SAMIRA NEGATIVE Urine nitrite detection by test strip NEGATIVE NEGATIVE Urine total bilirubin detection by test strip 1+ NEGATIVE Urine urobilinogen measurement by automated test strip (mass/volume) 1.0 mg/dL < = 1.0 Urine leukocyte esterase detection by dipstick NEG ATIVE NEGATIVE Automated urine sediment erythrocyte cou nt by microscopy (number/high power field) RARE NRG Automated urine sediment leukocyte count by microscopy (number/high power field) [HPF] NRG Bacteria detection in urine sediment by light microsco py TRACE NRG Squamous epithelial cells detection in u rine sediment by light microscopy 10-25 NRG Crystals detection in urine sediment by light microsco py NONE NRG Casts detection in urine sediment by light microscopy NONE NRG Mucus detection in urine sediment by light microscopy MODERATE NRG Complete urinalysis with reflex to culture NO NRG Complete blood count (CBC) with automate d white blood cell (WBC) differential - 09/11/19 19:24 Blood leukocytes automated count (number/volume) 10.0 10*3/uL 4.3-11.0 Blood erythrocytes automated count (number/volume) 5.21 10*6/uL 4.35-5.85 Venous blood hemoglobin measurement (mass/volume) 15.9 g/dL 11.5-16.0 Blood hematocrit (volume fraction) 47 % 35-52 Automated erythrocyte mean corpuscular volume 91 [ foz_us] 80-99 Automated erythrocyte mean corpuscular h emoglobin (mass per erythrocyte) 31 pg 25-34 Automated erythrocyte mean corpuscular h emoglobin concentration measurement (mass/volume) 34 g/dL 32-36 Automated erythrocyte distribution width ratio 13. 2 % 10.0- 14.5 Automated blood platelet count (count/volume) 301 10*3/uL 130-400 Automated blood platelet mean volume measurement 10.1 [foz_us] 7.4-10.4 Automated blood neutrophils/100 leukocytes 51 % 42-75 Automated blood lymphocytes/100 leukocytes 43 % 12-44 Blood monocytes/100 leukocytes 4 % 0-12 Automated blood eosinophils/100 leukocytes 2 % 0-10 Automated blood basophils/100 leukocytes 1 % 0-10 Blood neutrophils automated count (number/volume) 5.1 10*3 1.8-7.8 Blood lymphocytes automated count (number/volume) 4.2 10*3 1.0-4.0 Blood monocytes automated count (number/volume) 0. 4 10*3 0.0-1.0 Automated eosinophil count 0.2 10*3/uL 0 .0-0.3 Automated blood basophil count (count/volume) 0.1 10*3/uL 0.0-0.1 PT panel in platelet poor plasma by coag ulation assay - 09/11/19 19:24 Prothrombin time (PT) in platelet poor plasma by coagu lation assay 12.8 s 12.2-14.7 INR in platelet poor plasma or blood by coagulation as say 0.9 0.8-1.4 Activated partial thromboplastin time (a PTT) in platelet poor plasma bycoagulation assay - 09/11/19 19:24 Activated partial thromboplastin time (a PTT) in platelet poor plasma bycoagulation assay 27 s 24-35 Comprehensive metabolic panel - 09/11/19 19:24 Serum or plasma sodium measurement (moles/volume) 139 mmol/L 135-145 Serum or plasma potassium measurement (moles/volume) 2.6 mmol/L 3.6-5.0 Serum or plasma chloride measurement (moles/volume) 102 mmol/L 98-107 Carbon dioxide 18 mmol/L 21-32 Serum or plasma anion gap determination (moles/volume) 19 mmol/L 5-14 Serum or plasma urea nitrogen measurement (mass/volume ) 7 mg/dL 7-18 Serum or plasma creatinine measurement (mass/volume) 0.68 mg/dL 0.60-1.30 Serum or plasma urea nitrogen/creatinine mass ratio 10 NRG Serum or plasma creatinine measurement w ith calculation of estimated glomerular filtration rate > NRG Serum or plasma glucose measurement (mass/volume) 184 mg/dL 70-105 Serum or plasma calcium measurement (mass/volume) 9.3 mg/dL 8.5-10.1 Serum or plasma total bilirubin measurement (mass/volu me) 0.2 mg/dL 0.1-1.0 Serum or plasma alkaline phosphatase eugene surement (enzymatic activity/volume) 129 U/L 40-136 Serum or plasma aspartate aminotransfera se measurement (enzymatic activity/volume) 15 U/L 5-34 Serum or plasma alanine aminotransferase measurement (enzymatic activity/volume) 16 U/L 0-55 Serum or plasma protein measurement (mass/volume) 7.9 g/dL 6.4-8.2 Serum or plasma albumin measurement (mass/volume) 4.7 g/dL 3.2-4.5 Magnesium - 09/11/19 19:24 Magnesium 1.5 mg/dL 1.6-2.4 TROPONIN I FS - 09/11/19 19:24 TROPONIN I FS < 0.30 <0.30 PROBNP FS - 09/11/19 19:24 PROBNP FS 159.0 pg/mL <75.0 Magnesium - 09/16/19 13:45 Magnesium 1.7 mg/dL 1.6-2.4 PT panel in platelet poor plasma by coag ulation assay - 09/16/19 13:45 Prothrombin time (PT) in platelet poor plasma by coagu lation assay 12.2 s 12.2-14.7 INR in platelet poor plasma or blood by coagulation as say 0.9 0.8-1.4 Complete blood count (CBC) with automate d white blood cell (WBC) differential - 09/16/19 16:45 Blood leukocytes automated count (number/volume) 6.9 10*3/uL 4.3-11.0 Blood erythrocytes automated count (number/volume) 4.48 10*6/uL 4.35-5.85 Venous blood hemoglobin measurement (mass/volume) 14.0 g/dL 11.5-16.0 Blood hematocrit (volume fraction) 42 % 35-52 Automated erythrocyte mean corpuscular volume 93 [ foz_us] 80-99 Automated erythrocyte mean corpuscular h emoglobin (mass per erythrocyte) 31 pg 25-34 Automated erythrocyte mean corpuscular h emoglobin concentration measurement (mass/volume) 34 g/dL 32-36 Automated erythrocyte distribution width ratio 13. 2 % 10.0- 14.5 Automated blood platelet count (count/volume) 271 10*3/uL 130-400 Automated blood platelet mean volume measurement 9.8 [foz_us] 7.4-10.4 Automated blood neutrophils/100 leukocytes 53 % 42-75 Automated blood lymphocytes/100 leukocytes 38 % 12-44 Blood monocytes/100 leukocytes 6 % 0-12 Automated blood eosinophils/100 leukocytes 2 % 0-10 Automated blood basophils/100 leukocytes 1 % 0-10 Blood neutrophils automated count (number/volume) 3.7 10*3 1.8-7.8 Blood lymphocytes automated count (number/volume) 2.6 10*3 1.0-4.0 Blood monocytes automated count (number/volume) 0. 4 10*3 0.0-1.0 Automated eosinophil count 0.1 10*3/uL 0 .0-0.3 Automated blood basophil count (count/volume) 0.0 10*3/uL 0.0-0.1 Comprehensive metabolic panel - 09/16/19 16:45 Serum or plasma sodium measurement (moles/volume) 141 mmol/L 135-145 Serum or plasma potassium measurement (moles/volume) 3.4 mmol/L 3.6-5.0 Serum or plasma chloride measurement (moles/volume) 105 mmol/L 98-107 Carbon dioxide 22 mmol/L 21-32 Serum or plasma anion gap determination (moles/volume) 14 mmol/L 5-14 Serum or plasma urea nitrogen measurement (mass/volume ) 14 mg/dL 7-18 Serum or plasma creatinine measurement (mass/volume) 0.65 mg/dL 0.60-1.30 Serum or plasma urea nitrogen/creatinine mass ratio 22 NRG Serum or plasma creatinine measurement w ith calculation of estimated glomerular filtration rate > NRG Serum or plasma glucose measurement (mass/volume) 157 mg/dL 70-105 Serum or plasma calcium measurement (mass/volume) 9.2 mg/dL 8.5-10.1 Serum or plasma total bilirubin measurement (mass/volu me) < mg/dL 0.1-1.0 Serum or plasma alkaline phosphatase eugene surement (enzymatic activity/volume) 105 U/L 40-136 Serum or plasma aspartate aminotransfera se measurement (enzymatic activity/volume) 17 U/L 5-34 Serum or plasma alanine aminotransferase measurement (enzymatic activity/volume) 17 U/L 0-55 Serum or plasma protein measurement (mass/volume) 7.3 g/dL 6.4-8.2 Serum or plasma albumin measurement (mass/volume) 4.3 g/dL 3.2-4.5 CALCIUM CORRECTED 9.0 mg/dL 8.5-10.1 TROPONIN I FS - 09/16/19 16:45 TROPONIN I FS < 0.30 <0.30 Blood CBC with ordered manual differenti al panel - 10/03/19 20:25 Blood leukocytes automated count (number/volume) 7.2 10*3/uL 4.3-11.0 Blood erythrocytes automated count (number/volume) 4.88 10*6/uL 4.35-5.85 Venous blood hemoglobin measurement (mass/volume) 15.1 g/dL 11.5-16.0 Blood hematocrit (volume fraction) 44 % 35-52 Automated erythrocyte mean corpuscular volume 91 [ foz_us] 80-99 Automated erythrocyte mean corpuscular h emoglobin (mass per erythrocyte) 31 pg 25-34 Automated erythrocyte mean corpuscular h emoglobin concentration measurement (mass/volume) 34 g/dL 32-36 Automated erythrocyte distribution width ratio 13. 0 % 10.0- 14.5 Automated blood platelet count (count/volume) 265 10*3/uL 130-400 Automated blood platelet mean volume measurement 10.0 [foz_us] 7.4-10.4 Automated blood neutrophils/100 leukocytes 60 % 42-75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
== END 2019-09-16 18:14 | disposition short-term general hospital (02) ==
LOC: EDUNIT# 16:25 → ER FS 16:26
DX: T82.191A Other mechanical complication of cardiac pulse generator (battery), initial encounter (principal); R00.0 Tachycardia, unspecified; I10 Essential (primary) hypertension; E78.00 Pure hypercholesterolemia, unspecified; I25.2 Old myocardial infarction; K21.9 Gastro-esophageal reflux disease without esophagitis; F17.210 Nicotine dependence, cigarettes, uncomplicated; Z98.51 Tubal ligation status; Z90.710 Acquired absence of both cervix and uterus; Z88.6 Allergy status to analgesic agent; Z91.040 Latex allergy status; Z88.5 Allergy status to narcotic agent
CPT/HCPCS: 36415; 71045; 80053; 83735; 84484; 85025; 85610; 93005; 96374; 96375

== ENCOUNTER 2019-10-03 20:19 | Emergency (ER) | payer BC ==
[~2019-10-03] VITALS: Ht 170 cm; Wt 90.0 kg
--- NOTE | 2019-10-03 20:23 | ED General ---
General Stated Complaint: CHEST PAIN Source of Information: Patient History of Present Illness Date Seen by Provider: Oct 03, 2019 Time Seen by Provider: 20:23 Initial Comments Patient is a 49-year-old female with past medical history significant for c ardiac arrhythmia, hyperlipidemia, high blood, and tobacco abuse who comes to the emergency department today complaining of chest pain. The patient has heaviness over the sternal area of her chest which has been present since around 1:00 this afternoon. Pain started while she was at rest and watching TV. No aggravating or alleviating factors. She does feel mildly short of breath because of the pain. She has not been ill lately. No recent fever, chills, cough. Patient does not have prior known history of coronary artery disease. She states she last underwent cardiac catheterization about 6 months earlier which was negative for any acute stenosis and no intervention was performed. She also had a stress test at that time which was reportedly positive and lead to her catheterization. She had a subsequent stress test which was negative. She does have history of some arrhythmia for which she had a pacemaker/defibrillator placed. The patient does endorse a history in recent months of the sensation that her defibrillator was shocking her but that she underwent a complete workup including interrogation and there were no shocks. Patient does continue to have this sensation but declines that is new or different today compared to her experience over the last several months. Timing/Duration: 4-6 Hours Severity: Moderate Associated Systoms: Chest Pain, Shortness of Air Allergies and Home Medications Allergies Coded Allergies: aspirin (Verified Allergy, Unknown, 03/07/19) latex (Verified Allergy, Unknown, 09/16/19) morphine (Verified Allergy, Unknown, Pt has received Lortab & Hydromorphone, 09/06/19) Patient states is not allergic to Morphine Home Medications Albuterol Sulfate 1 Puff Puff, 2 PUFF INH Q4H PRN for SHORTNESS OF BREATH, (Reported) Amlodipine Besylate 10 Mg Tablet, 10 MG PO HS, (Reported) Atorvastatin Calcium 40 Mg Tablet, 40 MG PO HS Prescribed by: HEATHER PULLIAM on 08/15/19 1527 Clonidine HCl 0.1 Mg Tablet, 0.1 MG PO BID, (Reported) Cyclobenzaprine HCl 10 Mg Tablet, 10 MG PO BID, (Reported) Diphenhydramine HCl 25 Mg Capsule, 50 MG PO HS, (Reported) Fluoxetine HCl 20 Mg Capsule, 20 MG PO BID, (Reported) Lisinopril 20 Mg Tablet, 20 MG PO HS, (Reported) Metoprolol Succinate 50 Mg Tab.er.24h, 50 MG PO BID, (Reported) Pantoprazole Sodium 40 Mg Tablet.dr, 40 MG PO DAILY Prescribed by: HEATHER PULLIAM on 08/15/19 1527 Spironolactone 25 Mg Tablet, 25 MG PO DAILY, (Reported) Patient Home Medication List Home Medication List Reviewed: Yes Review of Systems Review of Systems Constitutional: no symptoms reported EENTM: no symptoms reported Respiratory: no symptoms reported Cardiovascular: chest pain Gastrointestinal: no symptoms reported Genitourinary: no symptoms reported Musculoskeletal: no symptoms reported Skin: no symptoms reported Psychiatric/Neurological: No Symptoms Reported All Other Systems Reviewed Negative Unless Noted: Yes Past Yygrqol-Ysrmzm-Svugqh Hx Patient Social History Type Used: Cigarettes 2nd Hand Smoke Exposure: Yes Recent Foreign Travel: No Contact w/Someone Who Travel: No Recent Hopitalizations: No Immunizations Up To Date Tetanus Booster (TDap): Unknown Date of Pneumonia Vaccine: Aug 14, 2016 Date of Influenza Vaccine: Jul 15, 2019 Seasonal Allergies Seasonal Allergies: No Past Medical History Surgeries: Yes Defibrillator, Gallbladder, Hysterectomy, Pacemaker, 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 Respiratory: No Cardiac: Yes (pacemaker/defib; a-fib) Heart Attack, High Cholesterol, Hypertension 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 0oz. 90.416189lu; 32.00 BMI Method:Stated General Appearance: No Apparent Distress, WD/WN, Anxious HEENT: PERRL/EOMI, TMs Normal, Normal ENT Inspection Neck: Full Range of Motion, Normal Inspection Respiratory: Lungs Clear, Normal Breath Sounds Cardiovascular: Regular Rate, Rhythm, No Edema, No Gallop, No Murmur Gastrointestinal: Non Tender, Soft Extremity: Normal Capillary Refill, Normal Inspection, No Calf Tenderness Neurologic/Psychiatric: Alert, Oriented x3 Progress/Results/Core Measures Suspected Sepsis SIRS Temperature: Pulse: Respiratory Rate: Laboratory Tests 10/03/19 20:25: White Blood Count 7.2 Blood Pressure / Mean: Laboratory Tests 10/03/19 20:25: Creatinine 0.96, Platelet Count 265 Results/Orders Lab Results Laboratory Tests Test 10/03/19 20:25 Range/Units White Blood Count 7.2 4.3-11.0 10^3/uL Red Blood Count 4.88 4.35-5.85 10^6/uL Hemoglobin 15.1 11.5-16.0 G/DL Hematocrit 44 35-52 % Mean Corpuscular Volume 91 80-99 FL Mean Corpuscular Hemoglobin 31 25-34 PG Mean Corpuscular Hemoglobin Concent 34 32-36 G/DL Red Cell Distribution Width 13.0 10.0-14.5 % Platelet Count 265 130-400 10^3/uL Mean Platelet Volume 10.0 7.4-10.4 FL Neutrophils (%) (Auto) 60 42-75 % Lymphocytes (%) (Auto) 33 12-44 % Monocytes (%) (Auto) 5 0-12 % Eosinophils (%) (Auto) 2 0-10 % Basophils (%) (Auto) 0 0-10 % Neutrophils # (Auto) 4.3 1.8-7.8 X 10^3 Lymphocytes # (Auto) 2.4 1.0-4.0 X 10^3 Monocytes # (Auto) 0.4 0.0-1.0 X 10^3 Eosinophils # (Auto) 0.1 0.0-0.3 10^3/uL Basophils # (Auto) 0.0 0.0-0.1 10^3/uL Neutrophils % (Manual) 62 % Lymphocytes % (Manual) 32 % Monocytes % (Manual) 5 % Eosinophils % (Manual) 1 % Basophils % (Manual) 0 % Band Neutrophils 0 % D-Dimer 0.36 0.00-0.49 UG/ML Sodium Level 138 135-145 MMOL/L Potassium Level 3.4 L 3.6-5.0 MMOL/L Chloride Level 102 98-107 MMOL/L Carbon Dioxide Level 20 L 21-32 MMOL/L Anion Gap 16 H 5-14 MMOL/L Blood Urea Nitrogen 17 7-18 MG/DL Creatinine 0.96 0.60-1.30 MG/DL Estimat Glomerular Filtration Rate > 60 BUN/Creatinine Ratio 18 Glucose Level 132 H 70-105 MG/DL Calcium Level 9.8 8.5-10.1 MG/DL Troponin I < 0.30 <0.30 NG/ML My Orders Orders - CLAUDIA RYAN DO Chest 1 View Ap/Pa Only (10/03/19 20:30) Ekg Tracing (10/03/19 20:30) Ed Iv/Invasive Line Start (10/03/19 20:30) Cbc And Manual Diff (10/03/19 20:30) Basic Metabolic Panel (10/03/19 20:30) Troponin I Fs (10/03/19 20:30) Fibrin Degradation Products (10/03/19 20:30) Fentanyl Injection (Sublimaze Injection (10/03/19 20:30) Ns Iv 1000 Ml (Sodium Chloride 0.9%) (10/03/19 21:00) Diazepam Tablet (Valium Tablet) (10/03/19 21:00) Famotidine Injection (Pepcid Injection) (10/03/19 21:00) Hydromorphone Injection (Dilaudid Inject (10/03/19 21:30) Ondansetron Injection (Zofran Injectio (10/03/19 21:45) Ketorolac Injection (Toradol Injection) (10/03/19 22:15) Hydromorphone Injection (Dilaudid Inject (10/03/19 22:15) Medications Given in ED Current Medications Medications Dose Ordered Sig/Norma Route Start Time Stop Time Status Last Admin Dose Admin Diazepam 5 mg ONCE ONCE PO 10/03/19 21:00 10/03/19 21:01 DC 10/03/19 21:08 5 MG Famotidine 20 mg ONCE ONCE IVP 10/03/19 21:00 10/03/19 21:01 DC 10/03/19 21:09 20 MG Fentanyl Citrate 100 mcg ONCE PRN IVP 10/03/19 20:30 10/03/19 20:38 100 MCG Hydromorphone HCl 1 mg ONCE ONCE IJ 10/03/19 21:30 10/03/19 21:31 DC 10/03/19 21:35 1 MG Ondansetron HCl 4 mg ONCE ONCE IVP 10/03/19 21:45 10/03/19 21:46 DC 10/03/19 21:46 4 MG Vital Signs/I&O 10/03/19 10/03/19 20:22 21:35 Temp 37.2 37.19896 Pulse 100 Resp 20 B/P (MAP) 173/116 (135) Pulse Ox 99 O2 Delivery Room Air Capillary Refill : Progress Note : Time: 20:37 Progress Note Patient is seen and examined. Overall reassuring PE and EKG is NSR w/o signs of ischemia or arrhythmia. Mild tachy at 103. Patient does seem very anxious. Will give dose of fentanyl for her pain. She declines ASA stating that it causes "fluid to build up around my pacemaker." Standard labs ordered and will do CXR. Patient's electronic medical record is extensively reviewed. There is some report in notes that she has history of coronary artery disease. In very thorough discussion with her, this does not seem to be accurate. Patient is describing an episode when her heart stopped beating due to arrhythmia as a heart attack. When questioned more directly about coronary artery disease, the patient cannot answer. She has had clean heart catheterization in recent years. Most recently, she had stress testing done about 3 weeks earlier during an inpatient stay for chest pain which was unrevealing for cardiac etiology. Patient also has known hiatal hernia which could be a source for much of her discomfort. She does take antacid medications at home. 21:30: All results are reviewed. Trop is not elevated. Dimer is normal range. CXR normal. Mildly elevated A.G. IVF's running. Patient continues to c/o pain. Will give additional dose of pain medications. Pepcid 20 mg IV also ordered. 22:15: Patient is currently feeling improved. She was given multiple doses of opiate pain medication during the ED course which she tolerates without difficulty. These were poorly responsive to improve her pain symptoms although she did eventually feel much better. Her vital signs remain stable. Patient was alert and oriented and had normal oxygen saturations on room air. She was speaking clearly and ambulate with a normal gait. Workup overall is negative. Her symptoms have been going on for over 8 hours and troponin weren't elevated by now. Additionally, she had negative cardiac workup just a couple of weeks earlier. Do not feel her pain this evening is secondary to a cardiac origin. I recommended that she follow up with her primary care doctor. Return to the ER if her symptoms worsen. ECG Initial ECG Impression Date: Oct 03, 2019 Initial ECG Impression Time: 20:30 Initial ECG Rate: 103 Initial ECG Rhythm: Normal Sinus, S.Tach Initial ECG Impression: Normal Departure Impression Primary Impression: Non-cardiac chest pain Disposition: 01 HOME, SELF-CARE Condition: Improved Departure-Patient Inst. Referrals: RICHARD HERMAN MD (PCP/Family) Primary Care Physician CLAUDIA RYAN DO Oct 03, 2019 20:23
[2019-10-03] MEDS ORDERED: fentaNYL INJECTION 100 MCG/2 ML AMP IVP PRN (20:30)
[2019-10-03 20:43] LABS: HEMATOCRIT 44 % (35-52); HEMOGLOBIN 15.1 G/DL (11.5-16.0); MEAN CORPUSCULAR HEMOGLOBIN 31 PG (25-34); MEAN CORPUSCULAR HGB CONC 34 G/DL (32-36); MEAN CORPUSCULAR VOLUME 91 FL (80-99); NEUTROPHILS % (AUTO) 60 % (42-75); PLATELET COUNT 265 10^3/uL (130-400); WHITE BLOOD COUNT 7.2 10^3/uL (4.3-11.0)
[2019-10-03 20:44] LABS: BASOPHILS % (AUTO) 0 % (0-10); EOSINOPHILS # (AUTO) 0.1 10^3/uL (0.0-0.3); EOSINOPHILS % (AUTO) 2 % (0-10); LYMPHOCYTES # (AUTO) 2.4 X 10^3 (1.0-4.0); LYMPHOCYTES % (AUTO) 33 % (12-44); MONOCYTES # (AUTO) 0.4 X 10^3 (0.0-1.0); MONOCYTES % (AUTO) 5 % (0-12); NEUTROPHILS # (AUTO) 4.3 X 10^3 (1.8-7.8)
--- NOTE | 2019-10-03 20:45 | Diagnostic Imaging Report ---
PATIENT HISTORY: Chest pain and shortness of breath. TECHNIQUE: Single frontal view of the chest. COMPARISON: 09/16/2019 FINDINGS: The lung volumes are normal. No focal consolidation is seen. No large pleural effusion or pneumothorax is seen. The cardiomediastinal silhouette is normal in size and contour. No acute osseous abnormality is seen. The AICD leads appear stable. IMPRESSION: No acute pulmonary abnormality seen. Dictated by: Dictated on workstation # [id number]
[2019-10-03 20:56] LABS: BAND NEUTROPHILS 0 %; BASOPHILS % (MANUAL) 0 %; EOSINOPHILS % (MANUAL) 1 %; LYMPHOCYTES % (MANUAL) 32 %; MONOCYTES % (MANUAL) 5 %; NEUTROPHILS % (MANUAL) 62 %
[2019-10-03 20:59] LABS: BUN/CREATININE RATIO 18; CALCIUM 9.8 MG/DL (8.5-10.1); CARBON DIOXIDE 20 MMOL/L (21-32); CHLORIDE 102 MMOL/L (98-107); CREATININE SERUM 0.96 MG/DL (0.60-1.30); GFR ESTIMATED > 60; GLUCOSE 132 MG/DL (70-105); POTASSIUM 3.4 MMOL/L (3.6-5.0); SODIUM 138 MMOL/L (135-145)
[2019-10-03] MEDS ORDERED: FAMOTIDINE 20MG/2ML IV (PEPCID) IVP ONE (21:00)
[2019-10-03] MEDS ORDERED: DIAZEPAM 5 MG (VALIUM) TABLET PO ONE (21:00)
[2019-10-03] MEDS ORDERED: NS IV 1000 ML 1,000 ML IV SCH (21:00)
[2019-10-03] MEDS ORDERED: HYDROmorphone 2 MG/ML VIAL (DILAUDID) IJ ONE (21:30)
[2019-10-03] MEDS ORDERED: ONDANSETRON 4 MG/2 ML (SDV) Z0FRAN IVP ONE (21:45)
[2019-10-03] MEDS ORDERED: KETOROLAC 30 MG/ML VIAL IVP ONE (22:15)
[2019-10-03] MEDS ORDERED: HYDROmorphone 2 MG/ML VIAL (DILAUDID) IV ONE (22:15)
[2019-10-03] MEDS ORDERED: GUAI-557 PO (22:17)
[2019-10-03 22:18] VITALS: BP 149/77
== END 2019-10-03 22:28 | disposition home or self-care (01) ==
LOC: EDUNIT# 20:19 → ER FS 20:20
DX: R07.89 Other chest pain (principal); I10 Essential (primary) hypertension; E78.5 Hyperlipidemia, unspecified; E78.00 Pure hypercholesterolemia, unspecified; I25.2 Old myocardial infarction; K21.9 Gastro-esophageal reflux disease without esophagitis; Z88.6 Allergy status to analgesic agent; Z91.040 Latex allergy status; Z88.5 Allergy status to narcotic agent; Z77.22 Contact with and (suspected) exposure to environmental tobacco smoke (acute) (chronic); Z95.810 Presence of automatic (implantable) cardiac defibrillator; Z90.710 Acquired absence of both cervix and uterus; Z98.51 Tubal ligation status
CPT/HCPCS: 36415; 71045; 80048; 84484; 85007; 85027; 85379; 93005; 96361; 96374; 96375; 96376

== ENCOUNTER 2019-10-05 20:59 | Emergency (ER) | payer BC ==
[~2019-10-05] VITALS: Ht 170 cm; Wt 90.0 kg
[~2019-10-05 20:59] MED LIST changes: +GUAI-557 PO
--- NOTE | 2019-10-05 21:35 | ED Chest Pain ---
General Chief Complaint: Chest Pain Stated Complaint: CHEST PAIN/SOB Nursing Triage Note: PT STATES SHE FEELS LIKE SHE IS BEING "SHOCKED". PT SEEN TH NIGHT FOR THE SAME REASON. 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 Nursing Sepsis Screen: No Definite Risk History of Present Illness Date Seen by Provider: Oct 05, 2019 Time Seen by Provider: 21:15 Initial Comments here with shock feeling in her chest. was here a week ago and her ivcd was checked out and she says it is not causing the problem but doesn't know what is. no sob no change in bowel or bladder. Timing/Duration: 1 week Severity/Quality: mild Location: substernal Radiation: no radiation Activities at Onset: none Modifying Factors: worse with coughing, worse with exercise, worse with lying down, worse with movement Allergies and Home Medications Allergies Coded Allergies: aspirin (Verified Allergy, Unknown, 03/07/19) latex (Verified Allergy, Unknown, 09/16/19) morphine (Verified Allergy, Unknown, Pt has received Lortab & Hydromorphone, 09/06/19) Patient states is not allergic to Morphine Home Medications Albuterol Sulfate 1 Puff Puff, 2 PUFF INH Q4H PRN for SHORTNESS OF BREATH, (Reported) Amlodipine Besylate 10 Mg Tablet, 10 MG PO HS, (Reported) Atorvastatin Calcium 40 Mg Tablet, 40 MG PO HS Prescribed by: HEATHER PULLIAM on 08/15/19 1527 Clonidine HCl 0.1 Mg Tablet, 0.1 MG PO BID, (Reported) Cyclobenzaprine HCl 10 Mg Tablet, 10 MG PO BID, (Reported) Diphenhydramine HCl 25 Mg Capsule, 50 MG PO HS, (Reported) Fluoxetine HCl 20 Mg Capsule, 20 MG PO BID, (Reported) Guaifenesin/Dextromethorphan 118 Ml Liquid, 118 ML PO Q4H PRN for cough Prescribed by: CLAUDIA RYAN on 10/03/197 Lisinopril 20 Mg Tablet, 20 MG PO HS, (Reported) Metoprolol Succinate 50 Mg Tab.er.24h, 50 MG PO BID, (Reported) Pantoprazole Sodium 40 Mg Tablet.dr, 40 MG PO DAILY Prescribed by: HEATHER PULLIAM on 08/15/19 1527 Spironolactone 25 Mg Tablet, 25 MG PO DAILY, (Reported) Patient Home Medication List Home Medication List Reviewed: Yes Review of Systems Review of Systems Constitutional: no symptoms reported EENTM: No Symptoms Reported Respiratory: No Symptoms Reported Cardiovascular: Chest Pain Gastrointestinal: No Symptoms Reported Genitourinary: No Symptoms Reported Musculoskeletal: no symptoms reported Skin: no symptoms reported Psychiatric/Neurological: No Symptoms Reported Past Pmqpoxo-Beuioj-Beajkq Hx Past Med/Social Hx: Reviewed Nursing Past Med/Soc Hx Patient Social History Alcohol Use: Denies Use Recreational Drug Use: No Type Used: Cigarettes 2nd Hand Smoke Exposure: Yes Recent Foreign Travel: No Contact w/Someone Who Travel: No Recent Infectious Disease Expo: No Recent Hopitalizations: No Physical Abuse: No Sexual Abuse: No Mistreated: No Immunizations Up To Date Tetanus Booster (TDap): Unknown Date of Pneumonia Vaccine: Aug 14, 2016 Date of Influenza Vaccine: Jul 15, 2019 Seasonal Allergies Seasonal Allergies: No Past Medical History Surgeries: Yes Defibrillator, Gallbladder, Hysterectomy, Pacemaker, 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 Respiratory: No Cardiac: Yes (pacemaker/defib; a-fib) Atrial Fibrillation, Heart Attack, High Cholesterol, Hypertension 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 0oz. 90.486031mt; 31.00 BMI Method:Stated General Appearance: No Apparent Distress, WD/WN HEENT: PERRL/EOMI, TMs Normal, Normal ENT Inspection, Pharynx Normal Neck: Full Range of Motion, Supple Respiratory: Lungs Clear, Normal Breath Sounds Cardiovascular: Regular Rate, Rhythm, No Murmur Gastrointestinal: Normal Bowel Sounds, Non Tender, Soft Neurologic/Psychiatric: Alert, Oriented x3 Skin: Normal Color, Warm/Dry Progress/Results/Core Measures Results/Orders Lab Results Laboratory Tests Test 10/05/19 21:14 Range/Units White Blood Count 8.5 4.3-11.0 10^3/uL Red Blood Count 4.30 L 4.35-5.85 10^6/uL Hemoglobin 13.1 11.5-16.0 G/DL Hematocrit 39 35-52 % Mean Corpuscular Volume 92 80-99 FL Mean Corpuscular Hemoglobin 30 25-34 PG Mean Corpuscular Hemoglobin Concent 33 32-36 G/DL Red Cell Distribution Width 13.0 10.0-14.5 % Platelet Count 243 130-400 10^3/uL Mean Platelet Volume 10.1 7.4-10.4 FL Neutrophils (%) (Auto) 70 42-75 % Lymphocytes (%) (Auto) 22 12-44 % Monocytes (%) (Auto) 5 0-12 % Eosinophils (%) (Auto) 2 0-10 % Basophils (%) (Auto) 0 0-10 % Neutrophils # (Auto) 6.0 1.8-7.8 X 10^3 Lymphocytes # (Auto) 1.8 1.0-4.0 X 10^3 Monocytes # (Auto) 0.4 0.0-1.0 X 10^3 Eosinophils # (Auto) 0.2 0.0-0.3 10^3/uL Basophils # (Auto) 0.0 0.0-0.1 10^3/uL Neutrophils % (Manual) % Sodium Level 139 135-145 MMOL/L Potassium Level 3.8 3.6-5.0 MMOL/L Chloride Level 103 98-107 MMOL/L Carbon Dioxide Level 22 21-32 MMOL/L Anion Gap 14 5-14 MMOL/L Blood Urea Nitrogen 14 7-18 MG/DL Creatinine 0.79 0.60-1.30 MG/DL Estimat Glomerular Filtration Rate > 60 BUN/Creatinine Ratio 18 Glucose Level 106 H 70-105 MG/DL Calcium Level 9.2 8.5-10.1 MG/DL Corrected Calcium 8.9 8.5-10.1 MG/DL Total Bilirubin 0.2 0.1-1.0 MG/DL Aspartate Amino Transf (AST/SGOT) 12 5-34 U/L Alanine Aminotransferase (ALT/SGPT) 12 0-55 U/L Alkaline Phosphatase 117 40-136 U/L Troponin I 0.30 <0.30 NG/ML Total Protein 7.1 6.4-8.2 GM/DL Albumin 4.4 3.2-4.5 GM/DL My Orders Orders - JEAN PAUL LIRIANO JR, MD Cbc And Manual Diff (10/05/19 21:30) Comprehensive Metabolic Panel (10/05/19 21:30) Troponin I Fs (10/05/19 21:30) Chest 1 View Ap/Pa Only (10/05/19 21:30) Ekg Tracing (10/05/19 21:30) Ed Iv/Invasive Line Start (10/05/19 21:39) Vital Signs/I&O 10/05/19 21:00 Temp 37.2 Pulse 97 Resp 14 B/P (MAP) 178/87 (117) Pulse Ox 99 O2 Delivery Room Air Blood Pressure Mean: 117 Initial ECG Impression Date: Oct 05, 2019 Initial ECG Impression Time: 21:05 Initial ECG Rate: 87 Initial ECG Rhythm: Normal Sinus Initial ECG Intervals: Normal Initial ECG Impression: Nonspecific Changes Departure Impression Primary Impression: Chest pain Qualified Codes: R07.9 - Chest pain, unspecified Disposition: HOME, SELF-CARE Condition: Stable Departure-Patient Inst. Referrals: RICHARD HERMAN MD (PCP/Family) Primary Care Physician Patient Instructions: Chest Pain That Is Not Caused by the Heart (DC) JEAN PAUL LIRIANO JR, MD Oct 05, 2019 21:34
[2019-10-05 21:37] LABS: BASOPHILS % (AUTO) 0 % (0-10); EOSINOPHILS # (AUTO) 0.2 10^3/uL (0.0-0.3); EOSINOPHILS % (AUTO) 2 % (0-10); HEMATOCRIT 39 % (35-52); HEMOGLOBIN 13.1 G/DL (11.5-16.0); LYMPHOCYTES # (AUTO) 1.8 X 10^3 (1.0-4.0); LYMPHOCYTES % (AUTO) 22 % (12-44); MEAN CORPUSCULAR HEMOGLOBIN 30 PG (25-34); MEAN CORPUSCULAR HGB CONC 33 G/DL (32-36); MEAN CORPUSCULAR VOLUME 92 FL (80-99); MEAN PLATELET VOLUME 10.1 FL (7.4-10.4); MONOCYTES # (AUTO) 0.4 X 10^3 (0.0-1.0); MONOCYTES % (AUTO) 5 % (0-12); NEUTROPHILS % (AUTO) 70 % (42-75); PLATELET COUNT 243 10^3/uL (130-400); WHITE BLOOD COUNT 8.5 10^3/uL (4.3-11.0)
[2019-10-05 21:45] LABS: BUN/CREATININE RATIO 18; CALCIUM 9.2 MG/DL (8.5-10.1); CARBON DIOXIDE 22 MMOL/L (21-32); CHLORIDE 103 MMOL/L (98-107); CREATININE SERUM 0.79 MG/DL (0.60-1.30); GFR ESTIMATED > 60; GLUCOSE 106 MG/DL (70-105); POTASSIUM 3.8 MMOL/L (3.6-5.0); SODIUM 139 MMOL/L (135-145)
[2019-10-05 21:46] LABS: ALANINE AMINOTRANSFERASE 12 U/L (0-55); ALBUMIN 4.4 GM/DL (3.2-4.5); ALKALINE PHOSPHATASE 117 U/L (40-136); BILIRUBIN,TOTAL 0.2 MG/DL (0.1-1.0); TOTAL PROTEIN 7.1 GM/DL (6.4-8.2)
--- NOTE | 2019-10-05 21:51 | Diagnostic Imaging Report ---
INDICATION: Chest pain. COMPARISON: 10/03/2019. EXAMINATION: Single view of the chest was obtained. FINDINGS: The lungs are clear. Heart and vessels are normal. No failure, effusion or pneumothorax. There has been no change. IMPRESSION: Stable negative chest. Dictated by: Dictated on workstation # [id number]
[2019-10-05 22:29] VITALS: BP 156/78
== END 2019-10-05 22:28 | disposition home or self-care (01) ==
LOC: EDUNIT# 20:59 → ER FS 21:02
DX: R07.9 Chest pain, unspecified (principal); I10 Essential (primary) hypertension; E78.00 Pure hypercholesterolemia, unspecified; I48.91 Unspecified atrial fibrillation; I25.2 Old myocardial infarction; K21.9 Gastro-esophageal reflux disease without esophagitis; Z95.810 Presence of automatic (implantable) cardiac defibrillator; Z88.6 Allergy status to analgesic agent; Z91.040 Latex allergy status; Z88.5 Allergy status to narcotic agent; Z77.22 Contact with and (suspected) exposure to environmental tobacco smoke (acute) (chronic); Z98.51 Tubal ligation status; Z90.710 Acquired absence of both cervix and uterus
CPT/HCPCS: 36415; 71045; 80053; 84484; 85007; 85027

== ENCOUNTER 2019-10-07 15:07 | Emergency (ER) | payer BC ==
[~2019-10-07] VITALS: Ht 170 cm; Wt 91.0 kg
[2019-10-07] MEDS ORDERED: NITROGLYCERIN 0.4 MG SL TABS BTL 25'S SL PRN (15:30)
--- NOTE | 2019-10-07 15:37 | ED Chest Pain ---
General Chief Complaint: Respiratory Problems Stated Complaint: CHEST PAIN/SOA Nursing Triage Note: PT REPORTS HURTS TO TAKE IN A DEEP BREATH. STARTED ABOUT 0330 LAST PM. SHE REPROTS A COUGH DUE TO SMOKING BUT IT HAS BECAME MORE PREVALENT IN THE LAST 24 HOURS. Nursing Sepsis Screen: No Definite Risk Source: patient Exam Limitations: no limitations History of Present Illness Date Seen by Provider: Oct 07, 2019 Time Seen by Provider: 15:25 Initial Comments Patient came into the emergency room with complaint of having lower sternal chest pain radiating to both sides of the chest which is sharp in nature since 3:00 this morning. She had 2 visits within the past week for chest pains and troponins were negative. She had a cardiac catheter done in April 2019 which was negative and she had 2 negative stress test. Patient had a negative d-dimer on of this month. She rated her pain as 10 out of 10 but was not in any dis tress. Her pain gets worse with palpation and deep breathing. She denies having any abdominal pain, unilateral swelling of the legs or leg cramps. She denies having any shortness of breath. She denies having any issues with anxiety. She does have history of reflux esophagitis and she takes medications for it. She does have history of high blood pressure, hypercholesterolemia and have a history of pacemaker placement. Timing/Duration: 12 hours Severity/Quality: severe Location: substernal (lower) Radiation: other (both sides of chest) Activities at Onset: none Prior CP/Workup: cardiac cath, stress test Modifying Factors: improves with breathing, improves with palpation Associated Symptoms: No heartburn, No shortness of breath, No syncope, No weakness Allergies and Home Medications Allergies Coded Allergies: aspirin (Verified Allergy, Unknown, 03/07/19) latex (Verified Allergy, Unknown, 09/16/19) morphine (Verified Allergy, Unknown, Pt has received Lortab & Hydromorphone, 09/06/19) Patient states is not allergic to Morphine Home Medications Albuterol Sulfate 1 Puff Puff, 2 PUFF INH Q4H PRN for SHORTNESS OF BREATH, (Reported) Amlodipine Besylate 10 Mg Tablet, 10 MG PO HS, (Reported) Atorvastatin Calcium 40 Mg Tablet, 40 MG PO HS Prescribed by: HEATHER PULLIAM on 08/15/19 1527 Clonidine HCl 0.1 Mg Tablet, 0.1 MG PO BID, (Reported) Cyclobenzaprine HCl 10 Mg Tablet, 10 MG PO BID, (Reported) Diphenhydramine HCl 25 Mg Capsule, 50 MG PO HS, (Reported) Fluoxetine HCl 20 Mg Capsule, 20 MG PO BID, (Reported) Guaifenesin/Dextromethorphan 118 Ml Liquid, 118 ML PO Q4H PRN for cough Prescribed by: CLAUDIA RYAN on 10/03/19 2217 Lisinopril 20 Mg Tablet, 20 MG PO HS, (Reported) Metoprolol Succinate 50 Mg Tab.er.24h, 50 MG PO BID, (Reported) Pantoprazole Sodium 40 Mg Tablet.dr, 40 MG PO DAILY Prescribed by: HEATHER PULLIAM on 08/15/19 1527 Spironolactone 25 Mg Tablet, 25 MG PO DAILY, (Reported) Review of Systems Review of Systems Constitutional: see HPI EENTM: No Symptoms Reported Respiratory: Cough Cardiovascular: Chest Pain Gastrointestinal: No Symptoms Reported Genitourinary: No Symptoms Reported Musculoskeletal: no symptoms reported Skin: no symptoms reported Psychiatric/Neurological: No Symptoms Reported; Denies Anxiety Endocrine: No Symptoms Reported All Other Systems Reviewed Negative Unless Noted: Yes Past Dkjwpnb-Yplfdr-Vlihkx Hx Patient Social History Alcohol Use: Denies Use Recreational Drug Use: No Smoking Status: Current Everyday Smoker Type Used: Cigarettes 2nd Hand Smoke Exposure: Yes Recent Foreign Travel: No Contact w/Someone Who Travel: No Recent Infectious Disease Expo: No Recent Hopitalizations: No Physical Abuse: No Sexual Abuse: No Mistreated: No Fear: No Immunizations Up To Date Tetanus Booster (TDap): Unknown Date of Pneumonia Vaccine: Aug 14, 2016 Date of Influenza Vaccine: Jul 15, 2019 Seasonal Allergies Seasonal Allergies: No Past Medical History Surgeries: Yes Defibrillator, Gallbladder, Hysterectomy, Pacemaker, 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 Respiratory: No Cardiac: Yes (pacemaker/defib; a-fib) Atrial Fibrillation, Heart Attack, High Cholesterol, Hypertension 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 0oz. 90.002914ss; 31.00 BMI Method:Stated General Appearance: No Apparent Distress, WD/WN HEENT: PERRL/EOMI, TMs Normal, Normal ENT Inspection, Pharynx Normal Neck: Full Range of Motion, Normal Inspection, Non Tender Respiratory: Lungs Clear, Normal Breath Sounds, No Accessory Muscle Use, No Respiratory Distress, Other (tenderness in lower sternal area) Cardiovascular: Regular Rate, Rhythm, No Edema, No Gallop, No JVD, No Murmur, Normal Peripheral Pulses Gastrointestinal: Normal Bowel Sounds, No Organomegaly, No Pulsatile Mass, Non Tender, Soft Extremity: Normal Inspection, Non Tender, No Calf Tenderness, No Pedal Edema Neurologic/Psychiatric: Alert, Oriented x3, No Motor/Sensory Deficits, Normal Mood/Affect, wrapper counter II-XII Norm as Tested Skin: Normal Color, Warm/Dry Progress/Results/Core Measures Results/Orders Lab Results Laboratory Tests Test 10/07/19 15:10 Range/Units White Blood Count 6.8 4.3-11.0 10^3/uL Red Blood Count 4.69 4.35-5.85 10^6/uL Hemoglobin 14.2 11.5-16.0 G/DL Hematocrit 43 35-52 % Mean Corpuscular Volume 91 80-99 FL Mean Corpuscular Hemoglobin 30 25-34 PG Mean Corpuscular Hemoglobin Concent 33 32-36 G/DL Red Cell Distribution Width 13.2 10.0-14.5 % Platelet Count 242 130-400 10^3/uL Mean Platelet Volume 10.2 7.4-10.4 FL Neutrophils (%) (Auto) 57 42-75 % Lymphocytes (%) (Auto) 36 12-44 % Monocytes (%) (Auto) 4 0-12 % Eosinophils (%) (Auto) 2 0-10 % Basophils (%) (Auto) 0 0-10 % Neutrophils # (Auto) 3.9 1.8-7.8 X 10^3 Lymphocytes # (Auto) 2.5 1.0-4.0 X 10^3 Monocytes # (Auto) 0.3 0.0-1.0 X 10^3 Eosinophils # (Auto) 0.1 0.0-0.3 10^3/uL Basophils # (Auto) 0.0 0.0-0.1 10^3/uL Sodium Level 140 135-145 MMOL/L Potassium Level 3.2 L 3.6-5.0 MMOL/L Chloride Level 103 98-107 MMOL/L Carbon Dioxide Level 21 21-32 MMOL/L Anion Gap 16 H 5-14 MMOL/L Blood Urea Nitrogen 10 7-18 MG/DL Creatinine 0.69 0.60-1.30 MG/DL Estimat Glomerular Filtration Rate > 60 BUN/Creatinine Ratio 14 Glucose Level 132 H 70-105 MG/DL Calcium Level 9.1 8.5-10.1 MG/DL Corrected Calcium 8.5-10.1 MG/DL Total Bilirubin 0.4 0.1-1.0 MG/DL Aspartate Amino Transf (AST/SGOT) 13 5-34 U/L Alanine Aminotransferase (ALT/SGPT) 12 0-55 U/L Alkaline Phosphatase 125 40-136 U/L Troponin I < 0.30 <0.30 NG/ML Total Protein 7.7 6.4-8.2 GM/DL Albumin 4.6 H 3.2-4.5 GM/DL My Orders Orders - KURT TREJO MD Cbc With Automated Diff (10/07/19 15:28) Comprehensive Metabolic Panel (10/07/19 15:28) Troponin I Fs (10/07/19 15:28) Chest 1 View Ap/Pa Only (10/07/19 15:28) Nitroglycerin 0.4 Mg Btl 25's (Nitrostat (10/07/19 15:30) Medications Given in ED Current Medications Medications Dose Ordered Sig/Norma Route Start Time Stop Time Status Last Admin Dose Admin Nitroglycerin 1 TAB Q 5 MIN X 3 NEEDED PRN SL 10/07/19 15:30 10/07/19 15:40 0.4 MG Vital Signs/I&O 10/07/19 15:17 Temp 36.8 Pulse 106 Resp 22 B/P (MAP) 154/116 (129) Pulse Ox 99 O2 Delivery Room Air Blood Pressure Mean: 129 Progress Progress Note #1: Time: 16:14 Progress Note Patient had 1 nitroglycerin and she said pain did not get any better and does not want any more nitro.wants pain meds. I offered to give tylenol and GI cocktail and she refused it. I told we do not give narcotic pain meds for her pain and her troponin is negative. I informed to the patient that we will do rpt troponin in 3 hrs and if that is negative we will discharge her and she needs to follow up with her PCP to discuss about her pain insipite of negative cath and negative stress test twice recently. Progress Note #2: Time: 16:44 Progress Note Patient called nurse and said she does not want to wait for 3 hrs to get rpt troponin and wants to sign out AMA. Initial ECG Impression Date: Oct 07, 2019 Initial ECG Impression Time: 14:08 Initial ECG Rhythm: Normal Sinus Initial ECG Impression: Nonspecific Changes Departure Impression Primary Impression: Other chest pain Disposition: 07 AGAINST MEDICAL ADVICE Condition: Improved Departure-Patient Inst. Referrals: RICHARD HERMAN MD (PCP/Family) Primary Care Physician KURT TREJO MD Oct 07, 2019 15:37
--- NOTE | 2019-10-07 15:42 | Diagnostic Imaging Report ---
INDICATION: Cough COMPARISON: 10/05/2019 FINDINGS: Single frontal view of the chest demonstrates normal heart size and pulmonary vascularity. The lungs are well aerated and clear. No large pleural effusion or pneumothorax is seen. The visualized osseous structures show no acute abnormalities. Left-sided AICD is noted. IMPRESSION: 1. No acute cardiopulmonary process. Dictated by: Dictated on workstation # [id number]
[2019-10-07 15:51] LABS: BASOPHILS % (AUTO) 0 % (0-10); EOSINOPHILS % (AUTO) 2 % (0-10); HEMATOCRIT 43 % (35-52); HEMOGLOBIN 14.2 G/DL (11.5-16.0); LYMPHOCYTES % (AUTO) 36 % (12-44); MEAN CORPUSCULAR HEMOGLOBIN 30 PG (25-34); MEAN CORPUSCULAR HGB CONC 33 G/DL (32-36); MEAN CORPUSCULAR VOLUME 91 FL (80-99); MEAN PLATELET VOLUME 10.2 FL (7.4-10.4); MONOCYTES % (AUTO) 4 % (0-12); NEUTROPHILS % (AUTO) 57 % (42-75); PLATELET COUNT 242 10^3/uL (130-400); RED CELL DISTRIBUTION WIDTH 13.2 % (10.0-14.5); WHITE BLOOD COUNT 6.8 10^3/uL (4.3-11.0)
[2019-10-07 15:52] LABS: EOSINOPHILS # (AUTO) 0.1 10^3/uL (0.0-0.3); LYMPHOCYTES # (AUTO) 2.5 X 10^3 (1.0-4.0); MONOCYTES # (AUTO) 0.3 X 10^3 (0.0-1.0); NEUTROPHILS # (AUTO) 3.9 X 10^3 (1.8-7.8)
[2019-10-07 15:59] LABS: BUN/CREATININE RATIO 14; CARBON DIOXIDE 21 MMOL/L (21-32); CHLORIDE 103 MMOL/L (98-107); CREATININE SERUM 0.69 MG/DL (0.60-1.30); GFR ESTIMATED > 60; POTASSIUM 3.2 MMOL/L (3.6-5.0); SODIUM 140 MMOL/L (135-145)
[2019-10-07 16:00] LABS: ALANINE AMINOTRANSFERASE 12 U/L (0-55); ALBUMIN 4.6 GM/DL (3.2-4.5); ALKALINE PHOSPHATASE 125 U/L (40-136); BILIRUBIN,TOTAL 0.4 MG/DL (0.1-1.0); CALCIUM 9.1 MG/DL (8.5-10.1); GLUCOSE 132 MG/DL (70-105); TOTAL PROTEIN 7.7 GM/DL (6.4-8.2)
[2019-10-07 16:43] VITALS: BP 156/92
--- NOTE | 2019-10-07 16:44 | NUR ---
THE PT LEFT AMA. PAPERS SIGNED. SHE HAD ASKED FOR NARCOTIC PAIN MEDICATION TWICE AND THIS RN LET THE DR KNOW. HE OFFERED TYLENOL AND A GI COCKTAIL AND SHE REFUSED. SHE CAME TO THE DOOR AND STATED SHE WANTED TO LEAVE AND THIS RN ASKED WHY AND SHE STATED BECAUSE THE DR WILL NOT GIVE HER PAIN MEDICATION. SHE STATED ALL THE DRS IN THE PAST HAVE GIVEN ME NARCOTICS. SHE INSISTED HER IV BE REMOVED. RISK OF LEAVING EXPLAINED TO PT EVEN AND SHE STILL WANTED TO LEAVE SO SHE SIGNED THE AMA PAPERS AND EXITED THE ER.
[2019-10-08] MEDS ORDERED: ACHD5005 PO (20:20)
[2019-10-11] MEDS ORDERED: DICL100G31 TOP (10:29)
[2019-10-11] MEDS ORDERED: PANT40TA2 PO (10:29)
[2019-10-11] MEDS ORDERED: SUCR1TAB PO (10:29)
[2019-10-11] MEDS ORDERED: HYDR12.5 PO (10:29)
== END 2019-10-07 16:45 | disposition left against medical advice (07) ==
LOC: EDUNIT# 15:07 → ER FS 15:09
DX: R07.89 Other chest pain (principal); E78.00 Pure hypercholesterolemia, unspecified; I10 Essential (primary) hypertension; I25.2 Old myocardial infarction; I48.91 Unspecified atrial fibrillation; K21.9 Gastro-esophageal reflux disease without esophagitis; F17.210 Nicotine dependence, cigarettes, uncomplicated; Z95.810 Presence of automatic (implantable) cardiac defibrillator; Z98.51 Tubal ligation status; Z90.710 Acquired absence of both cervix and uterus; Z95.9 Presence of cardiac and vascular implant and graft, unspecified; Z88.6 Allergy status to analgesic agent; Z88.5 Allergy status to narcotic agent; Z91.040 Latex allergy status
CPT/HCPCS: 36415; 71045; 80053; 84484; 85025; 93005

== ENCOUNTER 2019-10-08 02:01 | Emergency (ER) | payer BC ==
[~2019-10-08] VITALS: Ht 170.1 cm; Wt 90.7 kg
--- NOTE | 2019-10-08 02:09 | ED Chest Pain ---
General Stated Complaint: HYPENTENSION Source: patient Exam Limitations: no limitations History of Present Illness Date Seen by Provider: Oct 08, 2019 Time Seen by Provider: 02:14 Initial Comments Patient seen in the ER yesterday afternoon for chest pain and left AGAINST MEDICAL ADVICE because she did not got her narcotic pain medications. She came back tonight saying that she passed out at home. She denies having any injury from passing out and denies having any pain anywhere except continues to have pleuritic chest pain. She denies having any abdominal pain, unilateral swelling of the legs or leg cramps. She denies any drug use and denies any alcohol use. She had multiple cardiac evaluations including cardiac catheter in April and the 2 negative stress test after that. This is her fourth visit within the past week for chest pains. She also has defibrillator interrogated recently and checked out fine. She said her chest pain has been going on from 3:00 yesterday morning. 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) NTG SL COMPUTER SALESPERSON RETAIL: No Associated Symptoms: syncope Allergies and Home Medications Allergies Coded Allergies: aspirin (Verified Allergy, Unknown, 03/07/19) latex (Verified Allergy, Unknown, 09/16/19) morphine (Verified Allergy, Unknown, Pt has received Lortab & Hydromorphone, 09/06/19) Patient states is not allergic to Morphine Home Medications Albuterol Sulfate 1 Puff Puff, 2 PUFF INH Q4H PRN for SHORTNESS OF BREATH, (Reported) Amlodipine Besylate 10 Mg Tablet, 10 MG PO HS, (Reported) Atorvastatin Calcium 40 Mg Tablet, 40 MG PO HS Prescribed by: HEATHER PULLIAM on 08/15/19 1527 Clonidine HCl 0.1 Mg Tablet, 0.1 MG PO BID, (Reported) Cyclobenzaprine HCl 10 Mg Tablet, 10 MG PO BID, (Reported) Diphenhydramine HCl 25 Mg Capsule, 50 MG PO HS, (Reported) Fluoxetine HCl 20 Mg Capsule, 20 MG PO BID, (Reported) Guaifenesin/Dextromethorphan 118 Ml Liquid, 118 ML PO Q4H PRN for cough Prescribed by: CLAUDIA RYAN on 10/03/19 2217 Lisinopril 20 Mg Tablet, 20 MG PO HS, (Reported) Metoprolol Succinate 50 Mg Tab.er.24h, 50 MG PO BID, (Reported) Pantoprazole Sodium 40 Mg Tablet.dr, 40 MG PO DAILY Prescribed by: HEATHER PULLIAM on 08/15/19 1527 Spironolactone 25 Mg Tablet, 25 MG PO DAILY, (Reported) Review of Systems Review of Systems Constitutional: see HPI EENTM: No Mouth Pain Respiratory: Denies Cough, Denies Shortness of Air Cardiovascular: Chest Pain, Syncope Gastrointestinal: Denies Abdominal Pain Genitourinary: Denies No Symptoms Reported Musculoskeletal: No back pain Skin: No see HPI Psychiatric/Neurological: Anxiety Endocrine: Denies Excessive Sweating Hematologic/Lymphatic: Denies Anemia Past Wyimzzg-Raqtkg-Edjkdu Hx Patient Social History Type Used: Cigarettes 2nd Hand Smoke Exposure: Yes Recent Foreign Travel: No Contact w/Someone Who Travel: No Recent Hopitalizations: No Immunizations Up To Date Tetanus Booster (TDap): Unknown Date of Pneumonia Vaccine: Aug 14, 2016 Date of Influenza Vaccine: Jul 15, 2019 Seasonal Allergies Seasonal Allergies: No Past Medical History Surgeries: Yes Defibrillator, Gallbladder, Hysterectomy, Pacemaker, 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 Respiratory: No Cardiac: Yes (pacemaker/defib; a-fib) Atrial Fibrillation, Heart Attack, High Cholesterol, Hypertension 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 0oz. 90.820213qb; 31.00 BMI Method:Stated General Appearance: Anxious HEENT: PERRL/EOMI, TMs Normal, Normal ENT Inspection, Pharynx Normal Neck: Full Range of Motion, Normal Inspection, Non Tender, Supple Respiratory: Lungs Clear, Normal Breath Sounds, No Accessory Muscle Use, No Respiratory Distress, Other (tenderness on chest wall) Cardiovascular: No Edema, No Gallop, No JVD, No Murmur, Normal Peripheral Pulses, Tachycardia Gastrointestinal: Normal Bowel Sounds, No Organomegaly, No Pulsatile Mass, Non Tender, Soft Extremity: Normal Capillary Refill, Normal Inspection, Non Tender Neurologic/Psychiatric: Alert, Oriented x3, No Motor/Sensory Deficits, Normal Mood/Affect, cupola patcher helper II-XII Norm as Tested Skin: Normal Color, Warm/Dry Progress/Results/Core Measures Results/Orders Lab Results Laboratory Tests Test 10/08/19 02:06 Range/Units White Blood Count 8.8 4.3-11.0 10^3/uL Red Blood Count 4.55 4.35-5.85 10^6/uL Hemoglobin 13.9 11.5-16.0 G/DL Hematocrit 41 35-52 % Mean Corpuscular Volume 90 80-99 FL Mean Corpuscular Hemoglobin 31 25-34 PG Mean Corpuscular Hemoglobin Concent 34 32-36 G/DL Red Cell Distribution Width 13.0 10.0-14.5 % Platelet Count 239 130-400 10^3/uL Mean Platelet Volume 10.2 7.4-10.4 FL Neutrophils (%) (Auto) 59 42-75 % Lymphocytes (%) (Auto) 33 12-44 % Monocytes (%) (Auto) 6 0-12 % Eosinophils (%) (Auto) 1 0-10 % Basophils (%) (Auto) 1 0-10 % Neutrophils # (Auto) 5.2 1.8-7.8 X 10^3 Lymphocytes # (Auto) 2.9 1.0-4.0 X 10^3 Monocytes # (Auto) 0.5 0.0-1.0 X 10^3 Eosinophils # (Auto) 0.1 0.0-0.3 10^3/uL Basophils # (Auto) 0.0 0.0-0.1 10^3/uL Sodium Level 141 135-145 MMOL/L Potassium Level 3.0 L 3.6-5.0 MMOL/L Chloride Level 104 98-107 MMOL/L Carbon Dioxide Level 21 21-32 MMOL/L Anion Gap 16 H 5-14 MMOL/L Blood Urea Nitrogen 9 7-18 MG/DL Creatinine 0.71 0.60-1.30 MG/DL Estimat Glomerular Filtration Rate > 60 BUN/Creatinine Ratio 13 Glucose Level 101 70-105 MG/DL Calcium Level 9.3 8.5-10.1 MG/DL Corrected Calcium 8.5-10.1 MG/DL Magnesium Level 1.6 1.6-2.4 MG/DL Total Bilirubin 0.2 0.1-1.0 MG/DL Aspartate Amino Transf (AST/SGOT) 12 5-34 U/L Alanine Aminotransferase (ALT/SGPT) 12 0-55 U/L Alkaline Phosphatase 120 40-136 U/L Troponin I < 0.30 <0.30 NG/ML Total Protein 7.6 6.4-8.2 GM/DL Albumin 4.6 H 3.2-4.5 GM/DL My Orders Orders - KURT TREJO MD Comprehensive Metabolic Panel (10/08/19 02:09) Cbc With Automated Diff (10/08/19 02:09) Troponin I Fs (10/08/19 02:09) Ct Angio Chest W (10/08/19 02:09) Lorazepam Injection (Ativan Injection) (10/08/19 02:15) Ekg Tracing (10/08/19 02:09) Labetalol Injection (Normodyne Injection (10/08/19 02:15) Ed Iv/Invasive Line Start (10/08/19 02:17) Iohexol Injection (Omnipaque 350 Mg/Ml 1 (10/08/19 02:30) Received Contrast (Hold Metformin- Contr (10/08/19 02:30) Sodium Chloride Flush (Catheter Flush Sy (10/08/19 02:30) Ns (Ivpb) (Sodium Chloride 0.9% Ivpb Bag (10/08/19 02:30) Magnesium (10/08/19 02:28) Potassium Chloride (Tablet) (K Dur Table (10/08/19 03:15) Metoprolol Tartrate (Ir) Tab (Lopressor (10/08/19 03:15) Medications Given in ED Current Medications Medications Dose Ordered Sig/Norma Route Start Time Stop Time Status Last Admin Dose Admin Iohexol 125 ml ONCE ONCE IV 10/08/19 02:30 10/08/19 02:31 DC 10/08/19 02:35 125 ML Labetalol HCl 20 mg ONCE ONCE IV 10/08/19 02:15 10/08/19 02:16 DC 10/08/19 02:29 20 MG Lorazepam 1 mg ONCE ONCE IVP 10/08/19 02:15 10/08/19 02:16 DC 10/08/19 02:29 1 MG Sodium Chloride 10 ml NEEDED PRN IV 10/08/19 02:30 10/08/19 02:35 10 ML Sodium Chloride 100 ml ONCE ONCE IV 10/08/19 02:30 10/08/19 02:31 DC 10/08/19 02:35 80 ML Vital Signs/I&O 10/08/19 10/08/19 02:01 02:01 Temp 37.1 Pulse 134 Resp 20 B/P (MAP) 185/127 (146) Pulse Ox 98 O2 Delivery Room Air Room Air Progress Progress Note : Time: 03:12 Progress Note Patient's blood pressure and heart rate came down with Ativan and labetalol. Her troponins are negative. Lab work was unremarkable except for mild hypokalemia. Patient was given 40 mEq of potassium and 50 mg of metoprolol by mouth. She has pleuritic chest pain for the past 24 hours with the negative troponins and had multiple cardiac evaluations including cardiac catheter and stress test within the past 6 months. Informed to the patient that she needs to follow up with her primary care doctor for proper management of her blood pressure. Advised to take her blood pressure medications regularly. Informed about negative CT angio chest. Initial ECG Impression Date: Oct 08, 2019 Initial ECG Impression Time: 02:07 Initial ECG Rhythm: Normal Sinus, S.Tach Initial ECG Intervals: Normal Initial ECG Impression: Nonspecific Changes Departure Impression Primary Impression: Chest pain Qualified Codes: R07.1 - Chest pain on breathing Additional Impression: Hypertensive urgency Disposition: 01 HOME, SELF-CARE Condition: Improved Departure-Patient Inst. Decision time for Depature: 03:17 Referrals: RICHARD HERMAN MD (PCP/Family) Primary Care Physician Patient Instructions: High Blood Pressure (DC), Chest Pain (DC) Add. Discharge Instructions: Follow-up with your primary care doctor in 2-3 days for adjustment of her blood pressure medications. Check blood pressures at home and take log to the doctor's office. Take your home blood pressure medications regularly without missing any doses. Return to the emergency room if is any concerns. KURT TREJO MD Oct 08, 2019 02:09
[2019-10-08] MEDS ORDERED: LABETALOL HCL 20 MG/4 ML VIAL IV ONE (02:15)
[2019-10-08] MEDS ORDERED: LORazepam INJ 2 MG/ML (ATIVAN) VIAL IVP ONE ×2 (02:15→03:45)
[2019-10-08] MEDS ORDERED: HOLD METFORMIN - RECEIVED CONTRAST 20 ML VIAL IV SCH (02:30)
[2019-10-08] MEDS ORDERED: CATHETER FLUSH 10 ML SYR IV PRN (02:30)
[2019-10-08] MEDS ORDERED: IOHEXOL 350 MG/ML 150 ML (OMNIPAQUE 350) VIAL IV ONE (02:30)
[2019-10-08] MEDS ORDERED: NS 100 ML (IVPB) BAG IV ONE (02:30)
[2019-10-08 02:43] LABS: HEMATOCRIT 41 % (35-52); HEMOGLOBIN 13.9 G/DL (11.5-16.0); MEAN CORPUSCULAR HEMOGLOBIN 31 PG (25-34); MEAN CORPUSCULAR HGB CONC 34 G/DL (32-36); MEAN CORPUSCULAR VOLUME 90 FL (80-99); MEAN PLATELET VOLUME 10.2 FL (7.4-10.4); PLATELET COUNT 239 10^3/uL (130-400); WHITE BLOOD COUNT 8.8 10^3/uL (4.3-11.0)
[2019-10-08 02:44] LABS: BASOPHILS % (AUTO) 1 % (0-10); EOSINOPHILS # (AUTO) 0.1 10^3/uL (0.0-0.3); EOSINOPHILS % (AUTO) 1 % (0-10); LYMPHOCYTES # (AUTO) 2.9 X 10^3 (1.0-4.0); LYMPHOCYTES % (AUTO) 33 % (12-44); MONOCYTES # (AUTO) 0.5 X 10^3 (0.0-1.0); MONOCYTES % (AUTO) 6 % (0-12); NEUTROPHILS # (AUTO) 5.2 X 10^3 (1.8-7.8); NEUTROPHILS % (AUTO) 59 % (42-75)
[2019-10-08 03:05] LABS: CARBON DIOXIDE 21 MMOL/L (21-32); CHLORIDE 104 MMOL/L (98-107); SODIUM 141 MMOL/L (135-145)
[2019-10-08 03:06] LABS: ALANINE AMINOTRANSFERASE 12 U/L (0-55); ALBUMIN 4.6 GM/DL (3.2-4.5); ALKALINE PHOSPHATASE 120 U/L (40-136); BILIRUBIN,TOTAL 0.2 MG/DL (0.1-1.0); BUN/CREATININE RATIO 13; CALCIUM 9.3 MG/DL (8.5-10.1); CREATININE SERUM 0.71 MG/DL (0.60-1.30); GFR ESTIMATED > 60; GLUCOSE 101 MG/DL (70-105); MAGNESIUM 1.6 MG/DL (1.6-2.4); TOTAL PROTEIN 7.6 GM/DL (6.4-8.2)
[2019-10-08] MEDS ORDERED: meTOprolol TARTRATE 25 MG (LOPRESSOR) TABLET ONE (03:12)
[2019-10-08] MEDS ORDERED: KCL 20 MEQ TAB (K-DUR) PO ONE (03:15)
[2019-10-08] MEDS ORDERED: meTOprolol TARTRATE 50 MG (LOPRESSOR) TAB PO ONE (03:15)
[2019-10-08] MEDS ORDERED: ANTACID SUSP 30 ML UDC (MYLANTA) PO ONE (03:30)
[2019-10-08] MEDS ORDERED: meTOprolol TARTRATE 25 MG (LOPRESSOR) TABLET PO ONE (03:30)
[2019-10-08] MEDS ORDERED: LIDOCAINE 2% VISCOUS 15 ML UDC PO ONE ×2 (03:30)
[2019-10-08 03:37] VITALS: BP 160/118
--- NOTE | 2019-10-08 07:19 | Diagnostic Imaging Report ---
PROCEDURE: CT angiography of the chest with contrast. TECHNIQUE: Multiple contiguous axial images were obtained through the chest after uneventful bolus administration of intravenous contrast. 3D reconstructed CTA MIP acquisitions were also performed. Auto Exposure Controls were utilized during the CT exam to meet ALARA standards for radiation dose reduction. INDICATION: Shortness of breath. Pulmonary embolism. COMPARISON: 08/14/2019. FINDINGS: The heart is slightly enlarged without pericardial effusion. The pulmonary arteries and aorta are grossly normal. There is no lymphadenopathy. There is dependent atelectasis in both lung bases. There is no focal infiltrate. There is some distention of the esophagus containing debris in the mid esophagus. Follow-up is recommended. Visualized upper abdominal sonograms are unremarkable. There is a cardiac pacemaker in place. There is a nonspecific thyroid nodule on the right. Consider ultrasound follow-up. Osseous structures are age-appropriate. IMPRESSION: 1. Cardiac enlargement without overt pulmonary edema. Cardiac pacemaker is in place. 2. No pulmonary embolism or acute aortic pathology. 3. Slight dependent atelectasis. 4. Right thyroid nodule. Ultrasound correlation recommended. Agree with preliminary report. Dictated by: Dictated on workstation # [id number]
[2019-10-08] MEDS ORDERED: ACHD5005 PO (20:20)
[2019-10-11] MEDS ORDERED: PANT40TA2 PO (10:29)
[2019-10-11] MEDS ORDERED: SUCR1TAB PO (10:29)
[2019-10-11] MEDS ORDERED: HYDR12.5 PO (10:29)
[2019-10-11] MEDS ORDERED: DICL100G31 TOP (10:29)
== END 2019-10-08 03:37 | disposition home or self-care (01) ==
LOC: EDUNIT# 02:01 → ER FS 02:03
DX: R07.2 Precordial pain (principal); I16.0 Hypertensive urgency; I48.91 Unspecified atrial fibrillation; I10 Essential (primary) hypertension; E78.00 Pure hypercholesterolemia, unspecified; I25.2 Old myocardial infarction; K21.9 Gastro-esophageal reflux disease without esophagitis; Z95.810 Presence of automatic (implantable) cardiac defibrillator; Z88.6 Allergy status to analgesic agent; Z91.040 Latex allergy status; Z88.5 Allergy status to narcotic agent; Z77.22 Contact with and (suspected) exposure to environmental tobacco smoke (acute) (chronic); Z90.710 Acquired absence of both cervix and uterus; Z98.51 Tubal ligation status
CPT/HCPCS: 36415; 71275; 80053; 83735; 84484; 85025; 96374; 96375

== ENCOUNTER 2019-10-08 18:37 | Emergency (ER) | payer BC ==
[~2019-10-08] VITALS: Ht 170 cm; Wt 93.2 kg
[2019-10-08] MEDS ORDERED: KETOROLAC 60 MG/2 ML VIAL IM STA (18:53)
[2019-10-08] MEDS ORDERED: fentaNYL INJECTION 100 MCG/2 ML AMP IM STA (18:53)
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
--- NOTE | 2019-10-08 19:26 | Diagnostic Imaging Report ---
INDICATION: Injury, swelling and pain. FINDINGS: Distal radius and ulna and the carpal bones appeared intact. Arthritic changes at the interphalangeal joints and at the first CMC. No erosive component is found. Soft tissue swelling dorsally at the level of the distal metacarpals is best seen in the lateral view. A fracture cannot be identified. IMPRESSION: Dorsal soft tissue swelling. Osteoarthritis but no fracture radiographically apparent. Dictated by: Dictated on workstation # [id number]
[2019-10-08] MEDS ORDERED: RX-HYDROCODONE/APAP 5/325 MG #4 TAB PK PO PRN (20:15)
[2019-10-08] MEDS ORDERED: ACHD5005 PO (20:20)
[2019-10-08 20:25] VITALS: BP 158/93
[2019-10-11] MEDS ORDERED: DICL100G31 TOP (10:29)
[2019-10-11] MEDS ORDERED: PANT40TA2 PO (10:29)
[2019-10-11] MEDS ORDERED: SUCR1TAB PO (10:29)
[2019-10-11] MEDS ORDERED: HYDR12.5 PO (10:29)
== END 2019-10-08 20:25 | disposition home or self-care (01) ==
LOC: EDUNIT# 18:37 → ER FS 18:38
DX: T23.161A Burn of first degree of back of right hand, initial encounter (principal); S60.221A Contusion of right hand, initial encounter; R20.2 Paresthesia of skin; I10 Essential (primary) hypertension; I48.91 Unspecified atrial fibrillation; I25.2 Old myocardial infarction; E78.00 Pure hypercholesterolemia, unspecified; K21.9 Gastro-esophageal reflux disease without esophagitis; F17.210 Nicotine dependence, cigarettes, uncomplicated; Z90.710 Acquired absence of both cervix and uterus; Z95.810 Presence of automatic (implantable) cardiac defibrillator; Z88.6 Allergy status to analgesic agent; Z91.040 Latex allergy status; Z88.5 Allergy status to narcotic agent; Z98.51 Tubal ligation status; X11.8XXA Contact with other hot tap-water, initial encounter
CPT/HCPCS: 36415; 73130; 84484; 96372

== ENCOUNTER 2019-10-10 15:10 | Emergency (ER) | payer BC ==
[~2019-10-10] VITALS: Ht 170.1 cm; Wt 93.1 kg
[~2019-10-10 15:10] MED LIST changes: +ACHD5005 PO
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
[2019-10-10 16:00] VITALS: BP 153/131
[2019-10-11] MEDS ORDERED: DICL100G31 TOP ×2 (10:29)
[2019-10-11] MEDS ORDERED: SUCR1TAB PO ×2 (10:29)
[2019-10-11] MEDS ORDERED: PANT40TA2 PO ×2 (10:29)
[2019-10-11] MEDS ORDERED: HYDR12.5 PO ×2 (10:29)
== END 2019-10-10 16:00 | disposition home or self-care (01) ==
LOC: EDUNIT# 15:10 → ER FS 15:11
DX: T23.061D Burn of unspecified degree of back of right hand, subsequent encounter (principal); T31.0 Burns involving less than 10% of body surface; I10 Essential (primary) hypertension; E78.00 Pure hypercholesterolemia, unspecified; I48.91 Unspecified atrial fibrillation; I25.2 Old myocardial infarction; K21.9 Gastro-esophageal reflux disease without esophagitis; Z88.6 Allergy status to analgesic agent; Z91.040 Latex allergy status; Z88.5 Allergy status to narcotic agent; Z77.22 Contact with and (suspected) exposure to environmental tobacco smoke (acute) (chronic); Z95.810 Presence of automatic (implantable) cardiac defibrillator; Z90.710 Acquired absence of both cervix and uterus; Z98.51 Tubal ligation status; X58.XXXD Exposure to other specified factors, subsequent encounter

== ENCOUNTER 2019-10-11 03:04 | Observation (INO) | payer BC ==
[~2019-10-11] VITALS: Ht 167.5 cm; Wt 93.0 kg
[2019-10-11] VITALS (9 sets, daily range): BP systolic 117–165; BP diastolic 76–97
[2019-10-11 03:20] LABS: HEMATOCRIT 43 % (35-52); HEMOGLOBIN 14.6 G/DL (11.5-16.0); MEAN CORPUSCULAR HEMOGLOBIN 31 PG (25-34); WHITE BLOOD COUNT 8.6 10^3/uL (4.3-11.0)
[2019-10-11 03:21] LABS: BASOPHILS % (AUTO) 1 % (0-10); EOSINOPHILS # (AUTO) 0.2 10^3/uL (0.0-0.3); EOSINOPHILS % (AUTO) 2 % (0-10); LYMPHOCYTES # (AUTO) 3.4 X 10^3 (1.0-4.0); LYMPHOCYTES % (AUTO) 39 % (12-44); MEAN CORPUSCULAR HGB CONC 34 G/DL (32-36); MEAN CORPUSCULAR VOLUME 90 FL (80-99); MEAN PLATELET VOLUME 9.7 FL (7.4-10.4); MONOCYTES # (AUTO) 0.4 X 10^3 (0.0-1.0); MONOCYTES % (AUTO) 5 % (0-12); NEUTROPHILS # (AUTO) 4.6 X 10^3 (1.8-7.8); NEUTROPHILS % (AUTO) 53 % (42-75); PLATELET COUNT 254 10^3/uL (130-400); RED CELL DISTRIBUTION WIDTH 13.1 % (10.0-14.5)
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
[2019-10-11 03:34] LABS: INR 0.9 (0.8-1.4); PROTHROMBIN TIME PATIENT 12.6 SEC (12.2-14.7)
[2019-10-11 03:40] LABS: ALANINE AMINOTRANSFERASE 11 U/L (0-55); ALBUMIN 4.9 GM/DL (3.2-4.5); ALKALINE PHOSPHATASE 128 U/L (40-136); BILIRUBIN,TOTAL 0.3 MG/DL (0.1-1.0); BUN/CREATININE RATIO 14; CALCIUM 9.4 MG/DL (8.5-10.1); CARBON DIOXIDE 24 MMOL/L (21-32); CHLORIDE 101 MMOL/L (98-107); CREATININE SERUM 0.77 MG/DL (0.60-1.30); GFR ESTIMATED > 60; GLUCOSE 102 MG/DL (70-105); MAGNESIUM 1.9 MG/DL (1.6-2.4); POTASSIUM 3.3 MMOL/L (3.6-5.0); SODIUM 140 MMOL/L (135-145); TOTAL PROTEIN 7.9 GM/DL (6.4-8.2)
[2019-10-11] MEDS ORDERED: LABETALOL HCL 20 MG/4 ML VIAL IV STA (03:53)
[2019-10-11] MEDS ORDERED: fentaNYL INJECTION 100 MCG/2 ML AMP IVP STA ×2 (03:53→05:15)
[2019-10-11] MEDS ORDERED: NITROGLYCERIN 2% OINT 1 GM UNIT DOSE PACKET TOP STA (03:53)
[2019-10-11] MEDS ORDERED: ENOXAPARIN 100 MG/1 ML (LOVENOX) SYR SC STA (04:18)
[2019-10-11] MEDS ORDERED: LORazepam INJ 2 MG/ML (ATIVAN) VIAL IVP STA (04:31)
[2019-10-11] MEDS ORDERED: POTASSIUM CL 10MEQ/50ML IVPB 50 ML IV STA (05:19)
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
[2019-10-11] MEDS ORDERED: NS IV 1000 ML 1,000 ML ONE (06:05)
[2019-10-11] MEDS: fentaNYL INJECTION 100 MCG/2 ML AMP IVP PRN ×3 (06:15→13:02)
--- NOTE | 2019-10-11 06:38 | Diagnostic Imaging Report ---
INDICATION: Chest pain. Comparison is made with prior examination from 10/07/2019. FINDINGS: The heart size is normal. The lungs are clear. There is no pleural effusion or pneumothorax. The mediastinum is unremarkable. IMPRESSION: No acute cardiopulmonary abnormality Dictated by: Dictated on workstation # [id number]
[2019-10-11 07:13] LABS: CHOLESTEROL 215 MG/DL (< 200); HDL CHOLESTEROL 50 MG/DL (40-60); TRIGLYCERIDES 157 MG/DL (<150); VLDL CHOLESTEROL 31 MG/DL (5-40)
[2019-10-11] MEDS ORDERED: CATHETER FLUSH 10 ML SYR IV PRN (07:30)
[2019-10-11] MEDS ORDERED: hydrOXYzine (VISTARIL/ATARAX) 25 MG capsule/tablet PO PRN (08:45)
--- NOTE | 2019-10-11 09:12 | History & Physical ---
HPI History of Present Illness: Pt came to ER with chest pain that started last night during the night. She has a history of racing heart and has pacemaker and defibrillator. Denies any stents. Chest pain has eased up with pain medication here but not resolved. She also feels numb on her right side lower face and down arm. Denies fever. Has had cough which is chronic for her. Denies nausea, vomiting. Usually sees Dr. Gonzalez for Cardiology but is wanting to transfer care to [place] for distance reasons. Her defibrillator discharged after onset of her chest pain, and interrogation device in ER was unable to read. Source: patient Date seen by provider: Oct 11, 2019 Time Seen by Provider: 09:09 Attending Physician Rosanne Dunn MD PCP John Wilde MD Consult Date of Admission Oct 11, 2019 at 04:09 Home Medications Home Medications Reviewed patient Home Medication Reconciliation performed by pharmacy medication reconciliations blood bank laboratory technician and/or nursing. Patients Allergies have been reviewed. Allergies Coded Allergies: aspirin (Verified Allergy, Unknown, 03/07/19) latex (Verified Allergy, Unknown, 09/16/19) morphine (Verified Allergy, Unknown, Pt has received Lortab & Hydromorphone, 09/06/19) Patient states is not allergic to Morphine BPC-Xkxpfz-Eqkgbu Hx Patient Social History Alcohol Use: Denies Use Recreational Drug Use: No Smoking Status: Current Everyday Smoker Type Used: Cigarettes 2nd Hand Smoke Exposure: Yes Recent Foreign Travel: No Contact w/other who traveled: No Recent Hopitalizations: No Recent Infectious Disease Expo: No Immunizations Up To Date Tetanus Booster (TDap): Unknown Date of Pneumonia Vaccine: Aug 14, 2016 Date of Influenza Vaccine: Jul 15, 2019 Past Medical History PMHx: HTN HLD Heart disease- pacemaker and debrillator in place SurgHx: Pacemaker/defibrillator placement Hysterectomy Cholecystectomy Esophageal biopsy/EGD- Dr. Reeder Jul 2019 Family Medical History Significant Family History: Heart Disease Review of Systems ([facility]) Constitutional: No fever EENTM: No nose congestion, No throat pain Respiratory: see HPI Cardiovascular: see HPI Gastrointestinal: No abdominal pain, No constipation, No diarrhea, No nausea, No vomiting Genitourinary: No dysuria Musculoskeletal: joint pain (chronic) Skin: No rash Reviewed Test Results Reviewed Test Results Lab Laboratory Tests Test 10/11/19 03:11 10/11/19 06:46 Range/Units White Blood Count 8.6 4.3-11.0 10^3/uL Red Blood Count 4.72 4.35-5.85 10^6/uL Hemoglobin 14.6 11.5-16.0 G/DL Hematocrit 43 35-52 % Mean Corpuscular Volume 90 80-99 FL Mean Corpuscular Hemoglobin 31 25-34 PG Mean Corpuscular Hemoglobin Concent 34 32-36 G/DL Red Cell Distribution Width 13.1 10.0-14.5 % Platelet Count 254 130-400 10^3/uL Mean Platelet Volume 9.7 7.4-10.4 FL Neutrophils (%) (Auto) 53 42-75 % Lymphocytes (%) (Auto) 39 12-44 % Monocytes (%) (Auto) 5 0-12 % Eosinophils (%) (Auto) 2 0-10 % Basophils (%) (Auto) 1 0-10 % Neutrophils # (Auto) 4.6 1.8-7.8 X 10^3 Lymphocytes # (Auto) 3.4 1.0-4.0 X 10^3 Monocytes # (Auto) 0.4 0.0-1.0 X 10^3 Eosinophils # (Auto) 0.2 0.0-0.3 10^3/uL Basophils # (Auto) 0.0 0.0-0.1 10^3/uL Prothrombin Time 12.6 12.2-14.7 SEC INR Comment 0.9 0.8-1.4 Activated Partial Thromboplast Time 27 24-35 SEC Sodium Level 140 135-145 MMOL/L Potassium Level 3.3 L 3.6-5.0 MMOL/L Chloride Level 101 98-107 MMOL/L Carbon Dioxide Level 24 21-32 MMOL/L Anion Gap 15 H 5-14 MMOL/L Blood Urea Nitrogen 11 7-18 MG/DL Creatinine 0.77 0.60-1.30 MG/DL Estimat Glomerular Filtration Rate > 60 BUN/Creatinine Ratio 14 Glucose Level 102 70-105 MG/DL Calcium Level 9.4 8.5-10.1 MG/DL Corrected Calcium 8.5-10.1 MG/DL Magnesium Level 1.9 1.6-2.4 MG/DL Total Bilirubin 0.3 0.1-1.0 MG/DL Aspartate Amino Transf (AST/SGOT) 12 5-34 U/L Alanine Aminotransferase (ALT/SGPT) 11 0-55 U/L Alkaline Phosphatase 128 40-136 U/L Troponin I < 0.30 < 0.028 <0.028 NG/ML Pro-B-Type Natriuretic Peptide 684.6 H <75.0 PG/ML Total Protein 7.9 6.4-8.2 GM/DL Albumin 4.9 H 3.2-4.5 GM/DL Myoglobin 19.6 10.0-92.0 NG/ML Triglycerides Level 157 H <150 MG/DL Cholesterol Level 215 H < 200 MG/DL LDL Cholesterol Direct 158 H 1-129 MG/DL VLDL Cholesterol 31 5-40 MG/DL HDL Cholesterol 50 40-60 MG/DL Physical Exam-([facility]) Physical Exam Vital Signs VS - Last 72 Hours, by Label 10/11/19 10/11/19 10/11/19 10/11/19 03:09 03:09 05:22 06:00 Temp 36.7 36.6 Pulse 112 99 84 Resp 20 19 18 B/P (MAP) 203/117 (145) 155/101 124/85 (98) Pulse Ox 98 95 O2 Delivery Room Air Room Air Room Air Room Air 10/11/19 10/11/19 10/11/19 10/11/19 06:05 06:15 06:30 06:49 Pulse 85 81 80 Resp 18 18 B/P (MAP) 120/76 (91) 124/81 (95) Pulse Ox 95 95 95 O2 Delivery Room Air Room Air Room Air 10/11/19 10/11/19 10/11/19 10/11/19 06:49 08:00 08:00 09:00 Pulse 78 76 Resp 18 B/P (MAP) 136/83 (100) Pulse Ox 91 91 91 O2 Delivery Room Air Room Air Room Air 10/11/19 10/11/19 10/11/19 10/11/19 09:13 12:00 12:00 12:40 Temp 36.9 Pulse 80 85 77 Resp 18 B/P (MAP) 117/78 (91) 152/83 (106) Pulse Ox 92 91 91 O2 Delivery Room Air Room Air Room Air Capillary Refill : Less Than 3 Seconds General Appearance: no apparent distress Eyes: Bilateral Eye PERRL HEENT: PERRL/EOMI, pharynx normal Respiratory: lungs clear, normal breath sounds Cardiovascular: regular rate, rhythm, no murmur Gastrointestinal: normal bowel sounds, non tender, soft Extremities: no pedal edema Neurologic/Psychiatric: investigator claims II-XII nml as tested, alert, normal mood/affect, oriented x 3; No abnormal cerebellar tests, No motor weakness Skin: normal color, warm/dry Assessment/Plan Assessment/Plan Admission Status: Observation (1) Chest pain Status: Acute Assessment & Plan: No elevation in troponin. Suspect may be related to hiatal hernia/reflux. Cardiology consulted, appreciate recommendations. Had echo 08/15/2019 with LVH, EF 60-65% and RVSP 15 mmHg. Qualifiers: Qualified Codes: R07.9 - Chest pain, unspecified (2) Defibrillator discharge Status: Acute Assessment & Plan: Uncertain etiology, Cardiology consulted appreciate recommendations. (3) GERD (gastroesophageal reflux disease) Status: Chronic Assessment & Plan: Resume home meds Qualifiers: Qualified Codes: K21.0 - Gastro-esophageal reflux disease with esophagitis (4) HTN (hypertension) Status: Chronic Assessment & Plan: Resume home meds Qualifiers: Qualified Codes: I10 - Essential (primary) hypertension (5) DVT prophylaxis Assessment & Plan: Enoxaparin Clinical Quality Measures AMI/AHF: ASA po Prior to arrival: No DVT/VTE Risk/Contraindication: Risk Factor Score Per Nursin RFS Level Per Nursing on Admit: 2=Moderate ROSANNE DUNN MD Oct 11, 2019 09:12
[2019-10-11] MEDS: FLUoxetine HCL 20 MG (PROzac) CAP PO SCH ×2 (10:15→20:20)
[2019-10-11] MEDS: NS IV 1000 ML 1,000 ML IV SCH ×2 (10:26→15:56)
[2019-10-11] MEDS ORDERED: PANT40TA2 PO ×2 (10:29)
[2019-10-11] MEDS ORDERED: SUCR1TAB PO ×2 (10:29)
[2019-10-11] MEDS ORDERED: HYDR12.5 PO ×2 (10:29)
[2019-10-11] MEDS ORDERED: DICL100G31 TOP ×2 (10:29)
--- NOTE | 2019-10-11 10:32 | NUR ---
WENT OVER THE EXT MED HX WITH THE PATIENT, SHE VERIFIED HOW SHE TAKES EACH MED. SHE FILLED LIPITOR 40MG #30 08-15-[address] PULLIAM, SHE STATES SHE HAS NOT HAD AN APPOINTMENT WITH HER PCP SINCE THAT VISIT HERE AT THE HOSPITAL SO SHE IS PROBABLY OUT OF THAT MEDICATION. I REMOVED IT FROM THE MED REC AT THIS TIME, SHE IS GOING TO TALK TO HER DRFrances ABOUT IT. SHE FILLED SPIRONOLACTONE 25MG #90 07-19-19 HOWEVER FILLED HCTZ MORE RECENTLY FOR 30 DAYS, SHE STATES THE SPIRONOLACTONE WAS REPLACED BY THE HCTZ. SHE TAKES BENADRYL 2 TABS HS PRN SLEEP.
[2019-10-11] MEDS ORDERED: DICLOFENAC 1% GEL 100 GM (VOLTAREN) TUBE TOP PRN (14:15)
[2019-10-11] MEDS ORDERED: RT-ALBUTEROL SULF 2.5 MG/3 ML PRE-MIX VIAL INH PRN (14:15)
[2019-10-11] MEDS ORDERED: NON-FORMULARY MEDICATION 1 EA EA (Diphenhydramine HCl (Benadryl) 50 MG) PO PRN (14:15)
[2019-10-11] MEDS ORDERED: KCL 20 MEQ TAB (K-DUR) PO NR (14:15)
[2019-10-11] MEDS: SUCRALFATE 1 GM (CARAFATE) TAB PO SCH ×2 (15:29→20:20)
[2019-10-11] MEDS ORDERED: ENOXAPARIN 40 MG/0.4 ML (LOVENOX) SYR SQ SCH (15:30)
[2019-10-11] MEDS ORDERED: diphenhydrAMINE 25 MG TAB (BENADRYL) PO PRN (15:30)
[2019-10-11] MEDS ORDERED: ANTACID SUSP 30 ML UDC (MYLANTA) PO NR (17:15)
--- NOTE | 2019-10-11 17:36 | Consultation-Cardiology ---
HPI-Cardiology Cardiology Consultation: Date of Consultation 10/11/19 Date of Admission Attending Physician Ledy Mullen MD Admitting Physician John Wilde MD Consulting Physician Lindsey KENNEDY MD HPI: Time Seen by a Provider: 12:00 Chief Complaint: ICD shock This is a 49-year-old female who presents with chest pain and near syncope. She has previous history of ICD due to nonsustained VT, prolonged QT interval. She presented with complains of possible syncope and dizziness and told the ER that her ICD fired. She complains of chest pain as well as numbness in the right arm. She is had these episodes previously as well coronary angiography done previously was negative. When I saw the patient today she was not having any further complaints. Review of Systems-Cardiology Review of Systems Constitutional: As described under HPI; No As described under HPI, No no symptoms reported, No chills, No fever, No lightheadedness Eyes: No As described under HPI, No no symptoms reported, No blindness, No blurred vision, No contact lenses, No drainage, No decreased acuity, No foreign body sensation, No pain, No vision change Ears/Nose/Throat: No As described under HPI, No no symptoms reported, No chronic hearing loss, No ear discharge, No ear pain, No nasal drainage, No ulcerations Respiratory: No no symptoms reported; As described under HPI; No As described u nder HPI, No cough, No orthopnea, No shortness of breath, No SOB with excertion Cardiovascular: No no symptoms reported; As described under HPI; No As described under HPI; chest pain; No edema, No irregular heart rate, No lightheadedness, No palpitations Gastrointestinal: No no symptoms reported, No As described under HPI, No abdomen distended, No abdominal pain, No blood streaked bowels, No constipation, No diarrhea, No nausea, No vomiting, No stool coloration changes Genitourinary: No As described under HPI, No burning, No dysuria, No discharge, No frequency, No flank pain, No hematuria, No urgency : Yes : No Skin: No rash, No skin related problems, No ulcerations Psychiatric/Neurological: No anxiety, No depression, No seizure, No focal weakness, No syncope Hematologic: No bleeding abnormalities [id number] Hx Patient Social History Alcohol Use: Denies Use Recreational Drug Use: No Smoking Status: Current Everyday Smoker Type Used: Cigarettes 2nd Hand Smoke Exposure: Yes Recent Foreign Travel: No Recent Infectious Disease Expo: No Hospitalization with Isolation: Denies Immunizations Up To Date Tetanus Booster (TDap): Unknown Date of Pneumonia Vaccine: Aug 14, 2016 Date of Influenza Vaccine: Jul 15, 2019 Past Medical History PMH As described under Assessment. Family Medical History Family Medical History: Does not provide fam h/o early CAD or SCD Allergies and Home Medications Allergies Coded Allergies: aspirin (Verified Allergy, Unknown, 03/07/19) latex (Verified Allergy, Unknown, 09/16/19) morphine (Verified Allergy, Unknown, Pt has received Lortab & Hydromorphone, 09/06/19) Patient states is not allergic to Morphine Home Medications Albuterol Sulfate 1 Puff Puff, 2 PUFF INH Q4H PRN for SHORTNESS OF BREATH, (Reported) Amlodipine Besylate 10 Mg Tablet, 10 MG PO HS, (Reported) Clonidine HCl 0.1 Mg Tablet, 0.1 MG PO BID, (Reported) Cyclobenzaprine HCl 10 Mg Tablet, 10 MG PO BID, (Reported) Diclofenac Sodium 100 Gm Gel..gram., TOP QID PRN for ARTHRITIS PAIN, (Reported) Diphenhydramine HCl 25 Mg Capsule, 50 MG PO HS PRN for SLEEP, (Reported) Fluoxetine HCl 20 Mg Capsule, 20 MG PO BID, (Reported) Hydrochlorothiazide 12.5 Mg Capsule, 12.5 MG PO DAILY, (Reported) Lisinopril 20 Mg Tablet, 20 MG PO HS, (Reported) Metoprolol Succinate 50 Mg Tab.er.24h, 50 MG PO BID, (Reported) Pantoprazole Sodium 40 Mg Tablet.dr, 40 MG PO DAILY, (Reported) Sucralfate 1 Gm Tablet, 1 GM PO ACHS, (Reported) Patient Home Medication List Home Medication List Reviewed: Yes Physical Exam-Cardiology Physical Exam Vital Signs/I&O 10/11/19 10/11/19 10/11/19 10/11/19 06:00 06:05 06:15 06:30 Temp 36.6 Pulse 84 85 81 80 Resp 18 18 18 B/P (MAP) 124/85 (98) 120/76 (91) 124/81 (95) Pulse Ox 95 95 95 O2 Delivery Room Air Room Air Room Air 10/11/19 10/11/19 10/11/1927/19 06:49 06:49 08:00 08:00 Pulse 78 76 Resp 18 B/P (MAP) 136/83 (100) Pulse Ox 95 91 91 O2 Delivery Room Air Room Air Room Air 10/11/19 10/11/19 10/11/19 10/11/19 09:00 09:13 12:00 12:00 Temp 36.9 Pulse 80 85 Resp 18 B/P (MAP) 117/78 (91) 152/83 (106) Pulse Ox 91 92 91 91 O2 Delivery Room Air Room Air Room Air Room Air 10/11/19 10/11/19 12:40 16:00 Temp 36.4 Pulse 77 76 Resp 18 B/P (MAP) 136/87 (103) Pulse Ox 95 O2 Delivery Room Air Capillary Refill : Less Than 3 Seconds Constitutional: appears stated age, AAO x 3; No apparent distress; well- developed, well-nourished HEENT: PERRL; No discharge; hearing is well preserved, oral hygience is good; No ulceration, No xanthelasmas are seen Neck: No carotid bruit; carotid pulses are 2 + bilaterally Respiratory: chest is bilaterally symmetric, lungs clear to auscultation Cardiovascular: regular rate-rhythm, S1 and S2 Gastrointestinal: soft, audible bowel sounds; No spleenomegaly Rectal: deferred Extremities: normal range of motion, non-tender, normal inspection; No clubbing, No cyanosis; no lower extremity edema bilateral; No significant edema Neurologic/Psychiatric: no motor/sensory deficits, alert, normal mood/affect, oriented x 3, power is 5/5 both on sides Skin: normal color; No rash, No ulcerations Data Review Labs Laboratory Tests 10/11/19 03:11: White Blood Count 8.6, Red Blood Count 4.72, Hemoglobin 14.6, Hematocrit 43, Mean Corpuscular Volume 90, Mean Corpuscular Hemoglobin 31, Mean Corpuscular Hemoglobin Concent 34, Red Cell Distribution Width 13.1, Platelet Count 254, Mean Platelet Volume 9.7, Neutrophils (%) (Auto) 53, Lymphocytes (%) (Auto) 39, Monocytes (%) (Auto) 5, Eosinophils (%) (Auto) 2, Basophils (%) (Auto) 1, Neutrophils # (Auto) 4.6, Lymphocytes # (Auto) 3.4, Monocytes # (Auto) 0.4, Eosinophils # (Auto) 0.2, Basophils # (Auto) 0.0, Prothrombin Time 12.6, INR Comment 0.9, Activated Partial Thromboplast Time 27, Sodium Level 140, Potassium Level 3.3L, Chloride Level 101, Carbon Dioxide Level 24, Anion Gap 15H, Blood Urea Nitrogen 11, Creatinine 0.77, Estimat Glomerular Filtration Rate > 60, BUN/Creatinine Ratio 14, Glucose Level 102, Calcium Level 9.4, Corrected Calcium , Magnesium Level 1.9, Total Bilirubin 0.3, Aspartate Amino Transf (AST/SGOT) 12, Alanine Aminotransferase (ALT/SGPT) 11, Alkaline Phosphatase 128, Troponin I < 0.30, Pro-B-Type Natriuretic Peptide 684.6H, Total Protein 7.9, Albumin 4.9H 10/11/19 06:46: Troponin I < 0.028, Myoglobin 19.6, Triglycerides Level 157H, Cholesterol Level 215H, LDL Cholesterol Direct 158H, VLDL Cholesterol 31, HDL Cholesterol 50 10/11/19 12:30: Troponin I < 0.028 ECG Impression ECG Initial ECG Rhythm: S.Tach Comment Prolonged QTc interval. A/P-Cardiology Assessment/Admission Diagnosis History of VT, ICD firing, Prolonged QTc interval, Elevated BNP. Chest pain, Hypokalemia, Hyperlipidemia, Smoking Plan History of VT, congenital long QT syndrome, ICD placement in 2007 in [facility]. Generator change in September 2017. ICD firing, remote device interrogation done which showed no evidence of ICD shock or ATP therapy. Prolonged QTc interval, ICD in place. Elevated BNP. No evidence of florid congestive heart failure on examination. We'll request an echocardiogram. Chest pain, negative serial troponin. She had a myocardial perfusion imaging on 08/15/2019 which showed no ischemia or infarction. Coronary angiography done 03/05/2019 showed mild CAD with normal LV systolic function. No further cardiac testing is recommended. Hypokalemia, Hyperlipidemia Active smoking, smoking cessation is strongly recommended. Thank you for your consultation. Please call me if you have any questions. Sandro Kennedy MD, FACP, FACC, FSCAI, FHRS, CCDS Interventional Cardiology Cardiac Electrophysiology Vascular Medicine and Endovascular Interventions Clinical Quality Measures AMI/AHF: ASA po Prior to arrival: No DVT/VTE Risk/Contraindication: Risk Factor Score Per Nursin RFS Level Per Nursing on Admit: 2=Moderate Lindsey KENNEDY MD Oct 11, 2019 17:36
[2019-10-11] MEDS: IBUPROFEN 600 MG (MOTRIN) TAB PO PRN (18:05)
[2019-10-11] MEDS ORDERED: FUROSEMIDE 40 MG/4 ML INJ (LASIX) IVP NR (19:00)
[2019-10-11] MEDS: CYCLOBENZAPRINE 10 MG (FLEXERIL) TAB PO SCH (20:19)
[2019-10-11] MEDS: cloNIDine 0.1 MG (CATAPRES) TAB PO SCH (20:20)
[2019-10-11] MEDS: meTOproloL SUCCINATE 50 MG (TOPROL XL) TAB PO SCH (20:20)
[2019-10-11] MEDS ORDERED: lisINopril 20 MG (PRINIVIL) TABLET PO SCH (21:00)
[2019-10-11] MEDS ORDERED: amLODIPine 10 MG (NORVASC) TAB PO SCH (21:00)
[2019-10-11] MEDS: ACETAMINOPHEN 325 MG TABLET PO PRN (23:15)
[2019-10-11] MEDS ORDERED: LORazepam 0.5 MG (ATIVAN) TABLET PO STA (23:21)
[2019-10-12] VITALS: BP 115/71
[2019-10-12 04:00] VITALS: BP 133/86
[2019-10-12 04:08] LABS: HEMOGLOBIN 12.1 G/DL (11.5-16.0); RED CELL DISTRIBUTION WIDTH 13.6 % (10.0-14.5); WHITE BLOOD COUNT 6.9 10^3/uL (4.3-11.0)
[2019-10-12 04:30] LABS: ALANINE AMINOTRANSFERASE 11 U/L (0-55); ALBUMIN 3.7 GM/DL (3.2-4.5); ALKALINE PHOSPHATASE 94 U/L (40-136); BILIRUBIN,TOTAL 0.2 MG/DL (0.1-1.0); BUN/CREATININE RATIO 20; CALCIUM 8.5 MG/DL (8.5-10.1); CARBON DIOXIDE 22 MMOL/L (21-32); CHLORIDE 106 MMOL/L (98-107); CREATININE SERUM 0.81 MG/DL (0.60-1.30); GFR ESTIMATED > 60; GLUCOSE 99 MG/DL (70-105); POTASSIUM 3.8 MMOL/L (3.6-5.0); SODIUM 139 MMOL/L (135-145)
[2019-10-12] MEDS: SUCRALFATE 1 GM (CARAFATE) TAB PO SCH ×2 (06:13→10:14)
[2019-10-12 08:00] VITALS: BP 129/85
[2019-10-12] MEDS ORDERED: PANTOPRAZOLE 40 MG (PROTONIX) TAB PO SCH (09:00)
[2019-10-12] MEDS ORDERED: HYDROCHLOROTHIAZIDE 12.5 MG (HCTZ) CAP PO SCH (09:00)
[2019-10-12] MEDS: CYCLOBENZAPRINE 10 MG (FLEXERIL) TAB PO SCH (10:14)
[2019-10-12] MEDS: meTOproloL SUCCINATE 50 MG (TOPROL XL) TAB PO SCH (10:15)
[2019-10-12] MEDS: cloNIDine 0.1 MG (CATAPRES) TAB PO SCH (10:15)
[2019-10-12] MEDS: FLUoxetine HCL 20 MG (PROzac) CAP PO SCH (10:16)
[2019-10-12] MEDS: ACETAMINOPHEN 325 MG TABLET PO PRN (11:23)
--- NOTE | 2019-10-12 11:57 | Discharge Instructions ---
Discharge Instructions Reconcile Patient Problems Problems Reviewed?: Yes Discharge Medications New, Converted or Re-Newed RX: Other Patient Instructions Patient Instructions follow-up with Dr. Wilde in the next week. Please remind him that you have a right thyroid nodule that may need further evaluation. In addition, it's recommended that he seek a referral for an esophageal sonogram to further evaluate the abnormalities of your esophagus. This has remained stable over the last 2 CAT scans but may require further evaluation as well. Patient Instructions: please continue to try and stop smoking and follow a bland diet Return to [facility] For: change in status or need for further evaluation Activity & Diet Discharge Diet: Cardiac Diet Activity as Tolerated: Yes Copy Copies To 1: [facility]PONCHO PATI[facility]O MD Oct 12, 2019 11:57
[2019-10-12 12:00] VITALS: BP 127/75
--- NOTE | 2019-10-12 12:06 | Discharge Summary ---
Discharge Summary Hospital Course Was the Problem List Reviewed?: Yes Hospital Course Date of Admission: Oct 11, 2019 at 04:09 Admission Diagnosis : Family Physician/Provider: John Wilde MD Date of Discharge: 10/12/19 Discharge Diagnosis: [ chest pain most likely related to the esophagus Defibrillator/pacemaker Hypertension Tobaccoism Right thyroid nodule Esophageal thickening of uncertain etiology ] Hospital Course: [ ] Patient was admitted admitted with complaints of dizziness and that her defibrillator discharged. The defibrillator was interrogated and there is no evidence of abnormality or discharge. Her vitals stayed normal throughout the hospitalization. She did have chest discomfort throughout the hospitalization that seemed to be relieved best with fentanyl. CT chest pulmonary angiogram was unremarkable except for persistent mild thickening in the mid esophagus and food that was still there. Echocardiogram was obtained for a slightly elevated BNP and that was normal. The patient has had recent cardiac evaluation that is been unrevealing. Serial EKGs and troponins were unremarkable and unchanged. The patient slept well after being given some Ativan for anxiety. An incidental finding of a right thyroid nodule as seen on the CT. Outpatient follow-up is recommended for the thyroid nodule and for consideration of a esophageal sonogram for further evaluation of the thickened esophagus. An upper endoscopy has been done which showed duodenitis and gastritis within the last several clay hs. Labs and Pending Lab Test: Laboratory Tests 10/11/19 12:30: Troponin I < 0.028 10/12/19 03:50: White Blood Count 6.9, Red Blood Count 3.91L, Hemoglobin 12.1, Hematocrit 37, Mean Corpuscular Volume 93, Mean Corpuscular Hemoglobin 31, Mean Corpuscular Hemoglobin Concent 33, Red Cell Distribution Width 13.6, Platelet Count 202, Mean Platelet Volume 10.0, Sodium Level 139, Potassium Level 3.8, Chloride Level 106, Carbon Dioxide Level 22, Anion Gap 11, Blood Urea Nitrogen 16, Creatinine 0.81, Estimat Glomerular Filtration Rate > 60, BUN/Creatinine Ratio 20, Glucose Level 99, Calcium Level 8.5, Corrected Calcium 8.7, Total Bilirubin 0.2, Aspartate Amino Transf (AST/SGOT) 8, Alanine Aminotransferase (ALT/SGPT) 11, Alkaline Phosphatase 94, B-Type Natriuretic Peptide 10.8, Total Protein 6.0L, Albumin 3.7 Home Meds Active Reported Protonix (Pantoprazole Sodium) 40 Mg Tablet.dr 40 Mg PO DAILY Hydrochlorothiazide 12.5 Mg Capsule 12.5 Mg PO DAILY Diclofenac Sodium 100 Gm Gel..gram. TOP QID PRN Sucralfate 1 Gm Tablet 1 Gm PO ACHS Benadryl (Diphenhydramine HCl) 25 Mg Capsule 50 Mg PO HS PRN Cyclobenzaprine HCl 10 Mg Tablet 10 Mg PO BID Proair Hfa (Albuterol Sulfate) 1 Puff Puff 2 Puff INH Q4H PRN Fluoxetine HCl 20 Mg Capsule 20 Mg PO BID Amlodipine Besylate 10 Mg Tablet 10 Mg PO HS Metoprolol Succinate 50 Mg Tab.er.24h 50 Mg PO BID Lisinopril 20 Mg Tablet 20 Mg PO HS Clonidine HCl 0.1 Mg Tablet 0.1 Mg PO BID Assessment/Pt Instructions follow up with your primary care provider within the next week or 2 for further workup and evaluation of your esophagus and thyroid nodule Discharge Planning: >30 minutes discharge planning Discharge Instructions Discharge Diet: Cardiac Diet Activity as Tolerated: Yes Discharge Physical Examination Vital Signs Vital Signs Date Time Temp Pulse Resp B/P (MAP) Pulse Ox O2 Delivery O2 Flow Rate FiO2 10/12/19 09:00 95 Room Air 10/12/19 08:00 36.6 75 16 129/85 (100) General Appearance: No Apparent Distress, WD/WN HEENT: Normal ENT Inspection Respiratory: Chest Non Tender, Lungs Clear, Normal Breath Sounds, No Accessory Muscle Use, No Respiratory Distress Cardiovascular: Regular Rate, Rhythm, No Gallop, No JVD, No Murmur, Normal Pe ripheral Pulses Gastrointestinal: Normal Bowel Sounds, No Organomegaly, Non Tender, Soft Extremity: Normal Capillary Refill, Normal Range of Motion, No Calf Tenderness Skin: Normal Color, Warm/Dry Neurologic/Psychiatric: Alert, Oriented x3, No Motor/Sensory Deficits, fruit dumper II- XII Norm as Tested, Depressed Affect Allergies: Coded Allergies: aspirin (Verified Allergy, Unknown, 03/07/19) latex (Verified Allergy, Unknown, 09/16/19) morphine (Verified Allergy, Unknown, Pt has received Lortab & Hydromorphone, 09/06/19) Patient states is not allergic to Morphine Discharge Summary Date of Admission Oct 11, 2019 at 04:09 Date of Discharge Discharge Date: Oct 12, 2019 Discharge Time: 1200 Clinical Quality Measures AMI/AHF: ASA po Prior to arrival: No DVT/VTE Risk/Contraindication: Risk Factor Score Per Nursin RFS Level Per Nursing on Admit: 2=Moderate PONCHO HORNER MD Oct 12, 2019 12:05
--- NOTE | 2019-10-12 12:47 | Cardiology Progress Note ---
Cardiology SOAP Progress Note Subjective: Occasional chest pain. Objective: I&O/Vital Signs 10/12/19 10/12/19 10/12/19 10/12/19 01:00 04:00 04:00 07:00 Temp 36.7 Pulse 74 58 60 Resp 21 B/P (MAP) 133/86 (102) Pulse Ox 95 97 O2 Delivery Room Air Room Air 10/12/19 10/12/19 10/12/19 10/12/19 08:00 08:00 09:00 12:00 Temp 36.6 Pulse 75 Resp 16 B/P (MAP) 129/85 (100) Pulse Ox 93 95 95 95 O2 Delivery Room Air Room Air Room Air Room Air 10/12/19 10/12/19 12:00 12:21 Temp 36.8 Pulse 64 67 Resp 18 B/P (MAP) 127/75 (92) Pulse Ox 98 O2 Delivery Room Air 10/12/19 00:00 Intake Total 1100 ml Output Total 800 ml Balance 300 ml Weight (Pounds): 200 Weight (Ounces): 0 Weight (Calculated Kilograms): 90.930257 Constitutional: appears stated age, AAO x 3; No apparent distress; well- developed, well-nourished Respiratory: chest is bilaterally symmetric, lungs clear to auscultation Cardiovascular: regular rate-rhythm, S1 and S2 Gastrointestional: soft, audible bowel sounds; No spleenomegaly Extremities: normal range of motion, non-tender, normal inspection; No clubbing, No cyanosis; no lower extremity edema bilateral; No significant edema Neurologic/Psychiatric: no motor/sensory deficits, alert, normal mood/affect, oriented x 3, power is 5/5 both on sides Skin: normal color; No rash, No ulcerations Results/Procedures: Labs Laboratory Tests 10/12/19 03:50: White Blood Count 6.9, Red Blood Count 3.91L, Hemoglobin 12.1, Hematocrit 37, Mean Corpuscular Volume 93, Mean Corpuscular Hemoglobin 31, Mean Corpuscular Hemoglobin Concent 33, Red Cell Distribution Width 13.6, Platelet Count 202, Mean Platelet Volume 10.0, Sodium Level 139, Potassium Level 3.8, Chloride Level 106, Carbon Dioxide Level 22, Anion Gap 11, Blood Urea Nitrogen 16, Creatinine 0.81, Estimat Glomerular Filtration Rate > 60, BUN/Creatinine Ratio 20, Glucose Level 99, Calcium Level 8.5, Corrected Calcium 8.7, Total Bilirubin 0.2, Aspartate Amino Transf (AST/SGOT) 8, Alanine Aminotransferase (ALT/SGPT) 11, Alkaline Phosphatase 94, B-Type Natriuretic Peptide 10.8, Total Protein 6.0L, Albumin 3.7 A/P: Assessment/Dx: History of VT, ICD firing, Prolonged QTc interval, Elevated BNP. Chest pain, Hypokalemia, Hyperlipidemia, Smoking Plan: History of VT, congenital long QT syndrome, ICD placement in 2007 in [facility]. Generator change in September 2017. ICD firing, remote device interrogation done which showed no evidence of ICD shock or ATP therapy. Prolonged QTc interval, ICD in place. Elevated BNP. No evidence of florid congestive heart failure on examination. Echocardiogram done 10/11/2019 shows normal LV function with no significant valvular heart disease. Chest pain, negative serial troponin. She had a myocardial perfusion imaging on 08/15/2019 which showed no ischemia or infarction. Coronary angiography done 03/05/2019 showed mild CAD with normal LV systolic function. No further cardiac testing is recommended. Hypokalemia, Hyperlipidemia Active smoking, smoking cessation is strongly recommended. 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 Thank you for your consultation. Please call me if you have any questions. Sandro Kennedy MD, FACP, FACC, FSCAI, FHRS, CCDS Interventional Cardiology Cardiac Electrophysiology Vascular Medicine and Endovascular Interventions Clinical Quality Measures AMI/AHF: ASA po Prior to arrival: Lindsey Salmon MD Oct 12, 2019 12:47
[2019-10-12] MEDS: IBUPROFEN 600 MG (MOTRIN) TAB PO PRN (13:55)
[2019-10-12 14:10] VITALS: BP 148/88
--- NOTE | 2019-10-12 15:10 | NUR ---
JENNIFER DICKERSON demonstrates understanding of discharge instructions and accurately returns instructions upon questioning. Copy of Post-Discharge Instructions given to PT. JENNIFER DICKERSON is able to manage continuing needs after discharge. Patients belongings returned to PT. Patient discharged from [facility] on 10/12/19 at 1510. JENNIFER DICKERSON left floor via W/C, accompanied by STAFF AND PER AUTO.
== END 2019-10-12 15:10 | disposition home or self-care (01) ==
LOC: EDUNIT# 03:04 → ER FS 03:05 → CSD 04:09
PROVIDERS: ADMIT Family Medicine; ATTEND Family Medicine
DX: R07.9 Chest pain, unspecified (principal); T82.198A Other mechanical complication of other cardiac electronic device, initial encounter; I48.91 Unspecified atrial fibrillation; I25.2 Old myocardial infarction; I10 Essential (primary) hypertension; K21.9 Gastro-esophageal reflux disease without esophagitis; E78.5 Hyperlipidemia, unspecified; E87.6 Hypokalemia; M54.9 Dorsalgia, unspecified; G89.29 Other chronic pain; F17.200 Nicotine dependence, unspecified, uncomplicated; Z88.5 Allergy status to narcotic agent; Z88.6 Allergy status to analgesic agent; Z91.040 Latex allergy status; Z79.899 Other long term (current) drug therapy; Z98.51 Tubal ligation status; Z90.710 Acquired absence of both cervix and uterus; Z90.49 Acquired absence of other specified parts of digestive tract; Z98.1 Arthrodesis status; Z82.49 Family history of ischemic heart disease and other diseases of the circulatory system
CPT/HCPCS: 36415; 71046; 80053; 80061; 83735; 83874; 83880; 84484; 85025; 85027; 85610; 85730; 93005; 93041; 93306; 96372; 96374; 96375; 96376

== ENCOUNTER 2019-10-20 21:42 | Emergency (ER) | payer BC ==
[~2019-10-20] VITALS: Ht 170.1 cm; Wt 90.7 kg
[~2019-10-20 21:42] MED LIST changes: +DICL100G31 TOP; +HYDR12.5 PO; +PANT40TA2 PO; +SUCR1TAB PO
[2019-10-20 22:15] LABS: HEMATOCRIT 44 % (35-52); HEMOGLOBIN 15.2 G/DL (11.5-16.0); LYMPHOCYTES % (AUTO) 30 % (12-44); MEAN CORPUSCULAR HEMOGLOBIN 31 PG (25-34); MEAN CORPUSCULAR HGB CONC 34 G/DL (32-36); MEAN CORPUSCULAR VOLUME 90 FL (80-99); MEAN PLATELET VOLUME 9.4 FL (7.4-10.4); MONOCYTES % (AUTO) 5 % (0-12); NEUTROPHILS % (AUTO) 63 % (42-75); PLATELET COUNT 353 10^3/uL (130-400); RED CELL DISTRIBUTION WIDTH 13.7 % (10.0-14.5); WHITE BLOOD COUNT 8.3 10^3/uL (4.3-11.0)
--- NOTE | 2019-10-20 22:15 | ED Chest Pain ---
General Chief Complaint: Chest Pain Stated Complaint: CHEST PAIN/RIGHT ARM PAIN History of Present Illness Date Seen by Provider: Oct 20, 2019 Time Seen by Provider: 22:00 Initial Comments Patient is here with chest pain and right arm pain has been in the ER almost 10 times in the last month and a half for similar complaints her coronary artery disease history is known about her recent appointments showed there is no need for further cardiovascular workup and that the feelings were that this chest pain was noncardiac in any way she is now complaining of right arm numbness which started earlier in the day and bodies are entire right arm has some shoulder pain to go with it does note some right leg weakness and change in sensation as well although she is not demonstrated. Emergency room Timing/Duration: 24 hours Severity/Quality: mild, aching, pressure Location: substernal, shoulder Radiation: arms (right) Allergies and Home Medications Allergies Coded Allergies: aspirin (Verified Allergy, Unknown, 03/07/19) latex (Verified Allergy, Unknown, 09/16/19) morphine (Verified Allergy, Unknown, Pt has received Lortab & Hydromorphone, 09/06/19) Patient states is not allergic to Morphine Home Medications Albuterol Sulfate 1 Puff Puff, 2 PUFF INH Q4H PRN for SHORTNESS OF BREATH, (Reported) Amlodipine Besylate 10 Mg Tablet, 10 MG PO HS, (Reported) Clonidine HCl 0.1 Mg Tablet, 0.1 MG PO BID, (Reported) Cyclobenzaprine HCl 10 Mg Tablet, 10 MG PO BID, (Reported) Diphenhydramine HCl 25 Mg Capsule, 50 MG PO HS PRN for SLEEP, (Reported) Fluoxetine HCl 20 Mg Capsule, 20 MG PO BID, (Reported) Hydrochlorothiazide 12.5 Mg Capsule, 12.5 MG PO DAILY, (Reported) Lisinopril 20 Mg Tablet, 20 MG PO HS, (Reported) Metoprolol Succinate 50 Mg Tab.er.24h, 50 MG PO BID, (Reported) Pantoprazole Sodium 40 Mg Tablet.dr, 40 MG PO DAILY, (Reported) Sucralfate 1 Gm Tablet, 1 GM PO ACHS, (Reported) Patient Home Medication List Home Medication List Reviewed: Yes Review of Systems Review of Systems Constitutional: No chills, No fever; weakness EENTM: No Blurred Vision, No Double Vision Respiratory: Denies Cough, Denies Shortness of Air Cardiovascular: Chest Pain; Denies Edema, Denies Irregular Heart Rate Gastrointestinal: Denies Abdominal Pain, Denies Nausea, Denies Vomiting Genitourinary: Denies Frequency, Denies Pain Musculoskeletal: No back pain, No joint pain, No muscle pain, No neck pain Skin: No dryness, No rash Past Hvwdvsz-Svzvsg-Sordiw Hx Patient Social History Type Used: Cigarettes 2nd Hand Smoke Exposure: Yes Recent Foreign Travel: No Contact w/Someone Who Travel: No Recent Hopitalizations: No Immunizations Up To Date Tetanus Booster (TDap): Unknown Date of Pneumonia Vaccine: Aug 14, 2016 Date of Influenza Vaccine: Jul 15, 2019 Seasonal Allergies Seasonal Allergies: No Past Medical History Surgeries: Yes Defibrillator, Gallbladder, Hysterectomy, Pacemaker, 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 Respiratory: No Cardiac: Yes (pacemaker/defib; a-fib) Atrial Fibrillation, Heart Attack, High Cholesterol, Hypertension 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 0oz. 90.194786ic; 32.79 BMI Method:Stated General Appearance: WD/WN, Mild Distress HEENT: TMs Normal, Pharynx Normal Neck: Full Range of Motion, Non Tender Respiratory: Lungs Clear, No Respiratory Distress Cardiovascular: Regular Rate, Rhythm, No Murmur Gastrointestinal: Normal Bowel Sounds, Non Tender Neurologic/Psychiatric: Alert, Oriented x3; No No Motor/Sensory Deficits (sensory testing patient denies being unable to feel anything in the right arm does not have any dermatomal distribution reflexes are intact motor function seems to be intact.) Skin: Normal Color, Warm/Dry Lymphatic: No Adenopathy Progress/Results/Core Measures Results/Orders Lab Results Laboratory Tests Test 10/20/19 21:50 Range/Units White Blood Count 8.3 4.3-11.0 10^3/uL Red Blood Count 4.96 4.35-5.85 10^6/uL Hemoglobin 15.2 11.5-16.0 G/DL Hematocrit 44 35-52 % Mean Corpuscular Volume 90 80-99 FL Mean Corpuscular Hemoglobin 31 25-34 PG Mean Corpuscular Hemoglobin Concent 34 32-36 G/DL Red Cell Distribution Width 13.7 10.0-14.5 % Platelet Count 353 130-400 10^3/uL Mean Platelet Volume 9.4 7.4-10.4 FL Neutrophils (%) (Auto) 63 42-75 % Lymphocytes (%) (Auto) 30 12-44 % Monocytes (%) (Auto) 5 0-12 % Eosinophils (%) (Auto) 1 0-10 % Basophils (%) (Auto) 0 0-10 % Neutrophils # (Auto) 5.3 1.8-7.8 X 10^3 Lymphocytes # (Auto) 2.5 1.0-4.0 X 10^3 Monocytes # (Auto) 0.4 0.0-1.0 X 10^3 Eosinophils # (Auto) 0.1 0.0-0.3 10^3/uL Basophils # (Auto) 0.0 0.0-0.1 10^3/uL D-Dimer 0.40 0.00-0.49 UG/ML Sodium Level 139 135-145 MMOL/L Potassium Level 3.2 L 3.6-5.0 MMOL/L Chloride Level 101 98-107 MMOL/L Carbon Dioxide Level 19 L 21-32 MMOL/L Anion Gap 19 H 5-14 MMOL/L Blood Urea Nitrogen 8 7-18 MG/DL Creatinine 0.72 0.60-1.30 MG/DL Estimat Glomerular Filtration Rate > 60 BUN/Creatinine Ratio 11 Glucose Level 128 H 70-105 MG/DL Calcium Level 9.5 8.5-10.1 MG/DL Corrected Calcium 8.5-10.1 MG/DL Total Bilirubin 0.2 0.1-1.0 MG/DL Aspartate Amino Transf (AST/SGOT) 16 5-34 U/L Alanine Aminotransferase (ALT/SGPT) 21 0-55 U/L Alkaline Phosphatase 137 H 40-136 U/L Troponin I < 0.30 <0.30 NG/ML Total Protein 8.2 6.4-8.2 GM/DL Albumin 4.9 H 3.2-4.5 GM/DL My Orders Orders - JEAN PAUL LIRIANO JR, MD Comprehensive Metabolic Panel (10/20/19 22:09) Troponin I Fs (10/20/19 22:09) Fibrin Degradation Products (10/20/19 22:09) Ed Iv/Invasive Line Start (10/20/19 22:12) Cbc With Automated Diff (10/20/19 21:50) Ct Head/Cervical Spine Wo (10/20/19 22:28) Vital Signs/I&O 10/20/19 10/20/19 21:44 22:16 Temp 37.3 Pulse 142 Resp 20 B/P (MAP) 205/126 (152) Pulse Ox 96 O2 Delivery Room Air Room Air Progress Progress Note : Time: 23:27 Progress Note After reviewing the patient's chart cardiac history recent cardiology appointment failed to show any reason to think this would be her heart both negative CT head and neck as suspected she is tachycardic and mildly hypertensive do feel like with her past history and the amount time she's been in the emergency room and receive narcotic pain medication that there is a dependency and that possibly she is having withdrawal symptoms at this time she is currently on blood pressure medicine she has had the ability to follow up with her physician but has failed to do so discussed doing nerve conduction studies and other testing on the arm she refuses as it will not be covered by her co-pay will follow depending on what her desires as will not give her narcotic pain medications at this time. Departure Impression Primary Impression: Arm paresthesia, right Disposition: 01 HOME, SELF-CARE Condition: Stable Departure-Patient Inst. Referrals: RICHARD HERMAN MD (PCP/Family) Primary Care Physician Patient Instructions: Paresthesias (DC) Add. Discharge Instructions: Follow-up with her primary care physician this week All discharge instructions reviewed with patient and/or family. Voiced understanding. JEAN PAUL LIRAINO JR, MD Oct 20, 2019 22:15
[2019-10-20 22:16] LABS: BASOPHILS % (AUTO) 0 % (0-10); EOSINOPHILS # (AUTO) 0.1 10^3/uL (0.0-0.3); EOSINOPHILS % (AUTO) 1 % (0-10); LYMPHOCYTES # (AUTO) 2.5 X 10^3 (1.0-4.0); MONOCYTES # (AUTO) 0.4 X 10^3 (0.0-1.0); NEUTROPHILS # (AUTO) 5.3 X 10^3 (1.8-7.8)
[2019-10-20 22:18] LABS: CARBON DIOXIDE 19 MMOL/L (21-32); CHLORIDE 101 MMOL/L (98-107); POTASSIUM 3.2 MMOL/L (3.6-5.0); SODIUM 139 MMOL/L (135-145)
[2019-10-20 22:19] LABS: ALANINE AMINOTRANSFERASE 21 U/L (0-55); ALBUMIN 4.9 GM/DL (3.2-4.5); ALKALINE PHOSPHATASE 137 U/L (40-136); BILIRUBIN,TOTAL 0.2 MG/DL (0.1-1.0); BUN/CREATININE RATIO 11; CALCIUM 9.5 MG/DL (8.5-10.1); CREATININE SERUM 0.72 MG/DL (0.60-1.30); GFR ESTIMATED > 60; GLUCOSE 128 MG/DL (70-105); TOTAL PROTEIN 8.2 GM/DL (6.4-8.2)
[2019-10-20 23:32] VITALS: BP 184/102
--- NOTE | 2019-10-20 23:34 | NUR ---
Patient threw discharge instructions in the trash on her way out of the room.
--- NOTE | 2019-10-21 06:29 | Diagnostic Imaging Report ---
PROCEDURE: CT head and CT cervical spine without contrast. TECHNIQUE: Multiple contiguous axial images were obtained through the brain and cervical spine without the use of intravenous contrast. Sagittal and coronal reformations through the cervical spine were then performed. Auto Exposure Controls were utilized during the CT exam to meet ALARA standards for radiation dose reduction. INDICATION: Right arm numbness. COMPARISON: None FINDINGS: CT head: Ventricles and cortical sulci are age appropriate. There are scattered and confluent areas of decreased attenuation within the periventricular and subcortical deep white matter, right greater than left. Appearance is suggestive of underlying small vessel ischemic changes; presumably chronic. There is, however, no prior available for comparison purposes. There is no large area of loss of silva-white matter junction differentiation to suggest acute territorial infarct. There is no mass effect or midline shift. No evidence of intra or extra-axial intracranial hemorrhage is identified. Bony calvarium is intact. Included portions of paranasal sinuses and mastoid air cells are clear. CT cervical spine: Evaluation of the static alignment of the cervical spine shows reversal of the normal lordotic curvature. Findings, however, may relate to underlying spasm, as well as patient positioning and degenerative changes. There is no significant anteroretrolisthesis. There is no evidence of jumped facets. Vertebral body heights are maintained. There is no evidence of acute fracture. No bony fragments are seen within the spinal canal. There are moderate multilevel degenerative changes consisting of intervertebral disc height loss as well as anterior and posterior disc osteophyte complex formations and multilevel facet arthropathy. These changes are greatest at the C5-C6 and C6-C7 levels. Pre and paravertebral soft tissue structures are unremarkable. Included portions of the lung apices are clear. IMPRESSION: 1. No acute intracranial abnormality. No CT evidence of mass, acute infarct or intracranial hemorrhage. 2. Small vessel ischemic changes in the periventricular and subcortical white matter; likely chronic. 3. No acute fracture or dislocation of the cervical spine. 4. Multilevel degenerative changes, greatest at the C5-C6 and C6-C7 levels. Dictated by: Dictated on workstation # [id number]
== END 2019-10-20 23:32 | disposition home or self-care (01) ==
LOC: EDUNIT# 21:42 → ER FS 21:45
DX: R20.2 Paresthesia of skin (principal); I10 Essential (primary) hypertension; I48.91 Unspecified atrial fibrillation; I25.2 Old myocardial infarction; E78.00 Pure hypercholesterolemia, unspecified; K21.9 Gastro-esophageal reflux disease without esophagitis; Z88.6 Allergy status to analgesic agent; Z91.040 Latex allergy status; Z88.5 Allergy status to narcotic agent; Z77.22 Contact with and (suspected) exposure to environmental tobacco smoke (acute) (chronic); Z95.810 Presence of automatic (implantable) cardiac defibrillator; Z90.710 Acquired absence of both cervix and uterus; Z98.51 Tubal ligation status; Z82.49 Family history of ischemic heart disease and other diseases of the circulatory system
CPT/HCPCS: 36415; 70450; 72125; 80053; 84484; 85007; 85025; 85379; 93005

== ENCOUNTER 2019-11-03 17:43 | Emergency (ER) | payer BC ==
[~2019-11-03] VITALS: Ht 170.1 cm; Wt 93.2 kg
[~2019-11-03 17:43] MED LIST changes: -FLUO20CA25 PO; +FLUO20CA45 PO; -METO-370 PO; +METO50TA7 PO
--- NOTE | 2019-11-03 18:28 | Diagnostic Imaging Report ---
EXAM: CHEST PA/LAT (2 VIEW) INDICATION: Chest pain. COMPARISON: 10/11/2019. FINDINGS: Normal heart size and central pulmonary vascularity. No focal pulmonary opacity, pleural effusion or pneumothorax. No acute osseous findings. AICD. No significant change. IMPRESSION: No acute cardiopulmonary findings. Dictated by: Dictated on workstation # [id number]
--- NOTE | 2019-11-03 18:46 | ED Cough/URI ---
General Chief Complaint: Cough/Cold/Flu Symptoms Stated Complaint: VOMITING,COUGH,SOB Nursing Triage Note: Pt presents to ED reporting cough and headache. Pt states coughing began to bother he breathing yesterday. Pt is a smoker. Sepsis Screen: No Definite Risk Source: patient History of Present Illness Date Seen by Provider: Nov 03, 2019 Time Seen by Provider: 18:19 Initial Comments 49 yo F presenting with cough that has been going on for over a week but she felt it was worse in last few days. She does continue to smoke a few cigarettes a day. She had subjective fever and chills. She has having chest wall pain from coughing so much. She had not really been bringing anything up with coughing. She also was having a headache from coughing so much. She was having trouble resting and sleeping because of her cough. She has coughed to the point that she threw up as well. Allergies and Home Medications Allergies Coded Allergies: aspirin (Verified Allergy, Unknown, 03/07/19) latex (Verified Allergy, Unknown, 09/16/19) morphine (Verified Allergy, Unknown, Pt has received Lortab & Hydromorphone, 09/06/19) Patient states is not allergic to Morphine Home Medications Albuterol Sulfate 1 Puff Puff, 2 PUFF INH Q4H PRN for SHORTNESS OF BREATH, (Reported) Amlodipine Besylate 10 Mg Tablet, 10 MG PO HS, (Reported) Benzonatate 100 Mg Capsule, 100 MG PO Q4H PRN for COUGH Prescribed by: LAMIN ADLER on 11/03/191900 Clonidine HCl 0.1 Mg Tablet, 0.1 MG PO BID, (Reported) Cyclobenzaprine HCl 10 Mg Tablet, 10 MG PO BID, (Reported) Diphenhydramine HCl 25 Mg Capsule, 50 MG PO HS PRN for SLEEP, (Reported) Fluoxetine HCl 20 Mg Capsule, 20 MG PO BID, (Reported) Guaifenesin/Codeine Phosphate 473 Ml Liquid, 10 ML PO Q6H PRN for cough Prescribed by: LAMIN ADLER on 11/03/191900 Hydrochlorothiazide 12.5 Mg Capsule, 12.5 MG PO DAILY, (Reported) Lisinopril 20 Mg Tablet, 20 MG PO HS, (Reported) Metoprolol Succinate 50 Mg Tab.er.24h, 50 MG PO BID, (Reported) Pantoprazole Sodium 40 Mg Tablet.dr, 40 MG PO DAILY, (Reported) Prednisone 20 Mg Tab, 40 MG PO DAILY Prescribed by: LAMIN ADLER on 11/03/191900 Sucralfate 1 Gm Tablet, 1 GM PO ACHS, (Reported) Patient Home Medication List Home Medication List Reviewed: Yes Review of Systems Review of Systems Constitutional: chills, fever (subjective), malaise EENTM: hoarseness, nose congestion; No epistaxis Respiratory: cough, short of breath Cardiovascular: chest pain (chest wall pain) Gastrointestinal: No abdominal pain, No nausea; vomiting (post tussive) Genitourinary: no symptoms reported Musculoskeletal: see HPI Skin: no symptoms reported Psychiatric/Neurological: Paresthesia (chronic tingling and numbness into right arm) Hematologic/Lymphatic: No Symptoms Reported All Other Systems Reviewed Negative Unless Noted: Yes (Negative excepted noted.) Past Rorfcnj-Rpzbob-Emppjj Hx Past Med/Social Hx: Reviewed Nursing Past Med/Soc Hx Patient Social History Alcohol Use: Denies Use Recreational Drug Use: No Smoking Status: Current Everyday Smoker Type Used: Cigarettes 2nd Hand Smoke Exposure: Yes Recent Foreign Travel: No Contact w/Someone Who Travel: No Recent Infectious Disease Expo: No Recent Hopitalizations: No Physical Abuse: No Sexual Abuse: No Mistreated: No Fear: No Immunizations Up To Date Tetanus Booster (TDap): Unknown Date of Pneumonia Vaccine: Aug 14, 2016 Date of Influenza Vaccine: Jul 15, 2019 Seasonal Allergies Seasonal Allergies: No Past Medical History Surgeries: Yes Defibrillator, Gallbladder, Hysterectomy, Pacemaker, 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 Respiratory: Yes (Tobaccoism) Cardiac: Yes (pacemaker/defib; a-fib) Atrial Fibrillation, Heart Attack, High Cholesterol, Hypertension 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 0oz. 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, alert, oriented x 3 Skin: normal color, warm/dry Progress/Results/Core Measures Suspected Sepsis Recent Fever Within 48 Hours: No Infection Criteria Present: None New/Unexplained Altered Menta: No Sepsis Screen: No Definite Risk SIRS Temperature: Pulse: 116 Respiratory Rate: 22 Blood Pressure 158 /122 Mean: 134 Results/Orders Micro Results Microbiology 11/03/19 Influenza Types A,B Antigen (MENDEZ) - Final, Complete My Orders Orders - LAMIN ADLER MD Influenza A And B Antigens (11/03/19 18:00) Chest Pa/Lat (2 View) (11/03/19 18:00) Dexamethasone Injection (Decadron Inject (11/03/19 18:48) Fentanyl Injection (Sublimaze Injection (11/03/19 18:48) Benzonatate Capsule (Tessalon Perles) (11/03/19 18:48) Promethazine/ Codeine Syrup (Phenergan W (11/03/19 18:50) Vital Signs/I&O 11/03/19 11/03/19 17:45 17:45 Temp 35.8 Pulse 116 Resp 22 B/P (MAP) 158/122 (134) Pulse Ox 97 O2 Delivery Room Air Room Air Capillary Refill : Less Than 3 Seconds Blood Pressure Mean: 134 Progress Note #1: Progress Note check influenza swab and 2 view CXR. Progress Note #2: Progress Note Negative flu swab and cxr is clear of infiltrate or effusion. Will treat with steroid for inflammation and cough. Patient states that the cough syrup she got back in July when she was diagnosed with pneumonia had helped a lot so will prescribe that again. For here will give a steroid and fentanyl shot to try and help with her chest wall pain. Encourage fluids and rest. Use Tessalon Perles to help with the cough as well and given the first dose here. Continue on her regular medicines at home to help with blood pressure. As She is sleeping and breathing better her blood pressure should come down. Diagnostic Imaging Diagonstic Imaging: Xray Plain Films/CT/US/NM/MRI: chest Comments NAME: JENNIFER DICKERSON [facility] REC#: [id number] PT STATUS: REG ER : 1970 PHYSICIAN: LAMIN ADLER MD ADMIT DATE: 11/03/19/ER FS Draft Date of Exam:11/03/19 CHEST PA/LAT (2 VIEW) EXAM: CHEST PA/LAT (2 VIEW) INDICATION: Chest pain. COMPARISON: 10/11/2019. FINDINGS: Normal heart size and central pulmonary vascularity. No focal pulmonary opacity, pleural effusion or pneumothorax. No acute osseous findings. AICD. No significant change. IMPRESSION: No acute cardiopulmonary findings. Dictated on workstation # [id number] Dict: 11/03/19 1822 Trans: 11/03/19 1828 [id number] Interpreted by: LORENA WALKER MD Electronically signed by: Departure Impression Primary Impression: Upper respiratory infection with cough and congestion Additional Impressions: Chest wall muscle strain Qualified Codes: S29.011A - Strain of muscle and tendon of front wall of thorax, initial encounter Essential hypertension Disposition: HOME, SELF-CARE Condition: Stable Departure-Patient Inst. Decision time for Depature: 19:01 Referrals: RICHARD HERMAN MD (PCP/Family) Primary Care Physician Patient Instructions: Chest Pain That Is Not Caused by the Heart (DC), Cough, Adult (DC), Viral Upper Respiratory Infection, Adult (DC) Add. Discharge Instructions: Stay well hydrated and drink plenty of water. Follow up with clinic for worsening cough and congestion. Try the cough medicine and steroid to help with your cough and chest wall pain. Continue with your inhaler at home as well. Use a humidifier at the bedside when sleeping to help keep your airways moist and this will help with the cough as well. All discharge instructions reviewed with patient and/or family. Voiced understanding. Scripts Prednisone (Prednisone) 20 Mg Tab 40 MG PO DAILY for cough/chest wall pain for 3 Days, #6 TAB 0 Refills Prov: LAMIN ADLER MD 11/03/19 Benzonatate (TESSALON PERLES) 100 Mg Capsule 100 MG PO Q4H PRN for COUGH for 7 Days, #40 CAP 0 Refills Prov: LAMIN ADLER MD 11/03/19 Guaifenesin/Codeine Phosphate (Guaifenesin AC Cough Syrup) 473 Ml Liquid 10 ML PO Q6H PRN for cough for 5 Days, #200 ML 0 Refills Prov: LAMIN ADLER MD 11/03/19 LAMIN ADLER MD Nov 03, 2019 18:46
[2019-11-03] MEDS ORDERED: fentaNYL INJECTION 100 MCG/2 ML AMP IM STA (18:48)
[2019-11-03] MEDS ORDERED: BENZONATATE 100 MG (TESSALON) CAPSULE PO STA (18:48)
[2019-11-03] MEDS ORDERED: DEXAMETHASONE 10 MG/ML (DECADRON) 1 ML VIAL IM STA (18:48)
[2019-11-03] MEDS ORDERED: PROMETHAZINE/ CODEINE SYRUP 5 ML UDC PO STA (18:50)
--- NOTE | 2019-11-03 18:55 | NUR ---
Report to Na DAVIS.
[2019-11-03] MEDS ORDERED: GUAI473L29 PO (19:01)
[2019-11-03] MEDS ORDERED: BENZ100C18 PO (19:01)
[2019-11-03] MEDS ORDERED: PRD20T PO (19:01)
[2019-11-03 19:06] VITALS: BP 212/130
== END 2019-11-03 19:06 | disposition home or self-care (01) ==
LOC: EDUNIT# 17:43 → ER FS 17:44
DX: S29.011A Strain of muscle and tendon of front wall of thorax, initial encounter (principal); J06.9 Acute upper respiratory infection, unspecified; I10 Essential (primary) hypertension; I48.91 Unspecified atrial fibrillation; E78.00 Pure hypercholesterolemia, unspecified; I25.2 Old myocardial infarction; K21.9 Gastro-esophageal reflux disease without esophagitis; F17.210 Nicotine dependence, cigarettes, uncomplicated; Z88.6 Allergy status to analgesic agent; Z91.040 Latex allergy status; Z88.5 Allergy status to narcotic agent; Z95.810 Presence of automatic (implantable) cardiac defibrillator; Z98.51 Tubal ligation status; Z82.49 Family history of ischemic heart disease and other diseases of the circulatory system; X58.XXXA Exposure to other specified factors, initial encounter
CPT/HCPCS: 71046; 87804; 96372

== ENCOUNTER 2019-11-17 20:06 | Observation (INO) | payer BC ==
[~2019-11-17] VITALS: Ht 170.1 cm; Wt 93.0 kg
[~2019-11-17 20:06] MED LIST changes: +PRD20T PO
--- NOTE | 2019-11-17 20:30 | ED Chest Pain ---
General Chief Complaint: Chest Wall Stated Complaint: PACEMAKER WENT OFF Nursing Triage Note: Patient states that she has had a cough for 3 months. She states that she hasn't been feeling well for the last couple of days. She states that she got up to go to the bathroom and her "pacemaker went off". Patient states she doesn't feel right and she is having chest pain that she rates at an 11. Nursing Sepsis Screen: No Definite Risk History of Present Illness Date Seen by Provider: Nov 17, 2019 Time Seen by Provider: 20:30 Initial Comments Patient said she hasn't felt good over the last few days no fever no chills but just has had cough mild congestion Azael defibrillator fire to the right no chest pain but now having quite a bit of pain Timing/Duration: 1 week Severity/Quality: moderate Location: central Radiation: no radiation Activities at Onset: activity Prior CP/Workup: cardiac cath Modifying Factors: worse with coughing, worse with palpation Allergies and Home Medications Allergies Coded Allergies: aspirin (Verified Allergy, Unknown, 03/07/19) latex (Verified Allergy, Unknown, 09/16/19) morphine (Verified Allergy, Unknown, Pt has received Lortab & Hydromorphone, 09/06/19) Patient states is not allergic to Morphine Home Medications Albuterol Sulfate 1 Puff Puff, 2 PUFF INH Q4H PRN for SHORTNESS OF BREATH, (Reported) Amlodipine Besylate 10 Mg Tablet, 10 MG PO HS, (Reported) Benzonatate 100 Mg Capsule, 100 MG PO Q4H PRN for COUGH Prescribed by: LAMIN ADLER on 11/03/191900 Clonidine HCl 0.1 Mg Tablet, 0.1 MG PO BID, (Reported) Cyclobenzaprine HCl 10 Mg Tablet, 10 MG PO BID, (Reported) Diphenhydramine HCl 25 Mg Capsule, 50 MG PO HS PRN for SLEEP, (Reported) Fluoxetine HCl 20 Mg Capsule, 20 MG PO BID, (Reported) Guaifenesin/Codeine Phosphate 473 Ml Liquid, 10 ML PO Q6H PRN for cough Prescribed by: LAMIN ADLER on 11/03/191900 Hydrochlorothiazide 12.5 Mg Capsule, 12.5 MG PO DAILY, (Reported) Lisinopril 20 Mg Tablet, 20 MG PO HS, (Reported) Metoprolol Succinate 50 Mg Tab.er.24h, 50 MG PO BID, (Reported) Pantoprazole Sodium 40 Mg Tablet.dr, 40 MG PO DAILY, (Reported) Prednisone 20 Mg Tab, 40 MG PO DAILY Prescribed by: LAMIN ADLER on 11/03/191900 Sucralfate 1 Gm Tablet, 1 GM PO ACHS, (Reported) Patient Home Medication List Home Medication List Reviewed: Yes Review of Systems Review of Systems Constitutional: No chills, No fever; malaise, weakness EENTM: No Nose Congestion, No Throat Pain Respiratory: Cough; Denies Shortness of Air Cardiovascular: Chest Pain; Denies Palpitations Gastrointestinal: Denies Abdominal Pain, Denies Diarrhea, Denies Nausea, Denies Vomiting Genitourinary: Denies Burning, Denies Frequency Musculoskeletal: No muscle pain, No muscle stiffness Skin: No rash Psychiatric/Neurological: Denies Headache, Denies Numbness, Denies Tingling Past Odmpaft-Lmotee-Tigupj Hx Past Med/Social Hx: Reviewed Nursing Past Med/Soc Hx Patient Social History Type Used: Cigarettes 2nd Hand Smoke Exposure: Yes Recent Foreign Travel: No Contact w/Someone Who Travel: No Recent Infectious Disease Expo: No Recent Hopitalizations: No Physical Abuse: No Sexual Abuse: No Mistreated: No Fear: No Immunizations Up To Date Tetanus Booster (TDap): Unknown Date of Pneumonia Vaccine: Aug 14, 2016 Date of Influenza Vaccine: Jul 15, 2019 Seasonal Allergies Seasonal Allergies: No Past Medical History Surgeries: Yes Defibrillator, Gallbladder, Hysterectomy, Pacemaker, 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 Respiratory: Yes (Tobaccoism) Cardiac: Yes (pacemaker/defib; a-fib) Atrial Fibrillation, Heart Attack, High Cholesterol, Hypertension Neurological: No FORMER HAND History: Hysterectomy, 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 Genitourinary: No Gastrointestinal: Yes (Esophageal Mass) Gastroesophageal Reflux, Hiatal Hernia Musculoskeletal: Yes (ruptured disks) Chronic Back Pain Endocrine: No HEENT: No Cancer: No Psychosocial: No Integumentary: No Blood Disorders: No Family Medical History Heart Disease Physical Exam Vital Signs Vital Signs - First Documented 11/17/19 20:24 Temp 37.6 Pulse 140 Resp 13 B/P (MAP) 206/133 (157) Pulse Ox 96 O2 Delivery Room Air Capillary Refill : Less Than 3 Seconds Height, Weight, BMI Height: 5'7.00" Weight: 200lbs. 0oz. 90.047974ul; 31.00 BMI Method:Stated General Appearance: No Apparent Distress, WD/WN HEENT: PERRL/EOMI, TMs Normal, Pharynx Normal Neck: Full Range of Motion, Supple Respiratory: Chest Non Tender, Lungs Clear, No Respiratory Distress Cardiovascular: No Murmur, Tachycardia Gastrointestinal: Normal Bowel Sounds, Non Tender, Soft Neurologic/Psychiatric: Alert, Oriented x3, Normal Mood/Affect Skin: Normal Color, Warm/Dry Progress/Results/Core Measures Results/Orders Lab Results Laboratory Tests Test 11/17/19 20:52 Range/Units White Blood Count 6.2 4.3-11.0 10^3/uL Red Blood Count 4.55 4.35-5.85 10^6/uL Hemoglobin 14.0 11.5-16.0 G/DL Hematocrit 41 35-52 % Mean Corpuscular Volume 91 80-99 FL Mean Corpuscular Hemoglobin 31 25-34 PG Mean Corpuscular Hemoglobin Concent 34 32-36 G/DL Red Cell Distribution Width 13.6 10.0-14.5 % Platelet Count 290 130-400 10^3/uL Mean Platelet Volume 9.6 7.4-10.4 FL Neutrophils (%) (Auto) 70 42-75 % Lymphocytes (%) (Auto) 22 12-44 % Monocytes (%) (Auto) 6 0-12 % Eosinophils (%) (Auto) 1 0-10 % Basophils (%) (Auto) 0 0-10 % Neutrophils # (Auto) 4.4 1.8-7.8 X 10^3 Lymphocytes # (Auto) 1.4 1.0-4.0 X 10^3 Monocytes # (Auto) 0.4 0.0-1.0 X 10^3 Eosinophils # (Auto) 0.1 0.0-0.3 10^3/uL Basophils # (Auto) 0.0 0.0-0.1 10^3/uL Neutrophils % (Manual) 75 % Lymphocytes % (Manual) 15 % Monocytes % (Manual) 4 % Reactive Lymphocytes 6 % Microcytosis SLIGHT Sodium Level 141 135-145 MMOL/L Potassium Level 2.9 L 3.6-5.0 MMOL/L Chloride Level 102 98-107 MMOL/L Carbon Dioxide Level 25 21-32 MMOL/L Anion Gap 14 5-14 MMOL/L Blood Urea Nitrogen 7 7-18 MG/DL Creatinine 0.60 0.60-1.30 MG/DL Estimat Glomerular Filtration Rate > 60 BUN/Creatinine Ratio 12 Glucose Level 103 70-105 MG/DL Calcium Level 9.2 8.5-10.1 MG/DL Corrected Calcium 9.0 8.5-10.1 MG/DL Total Bilirubin 0.3 0.1-1.0 MG/DL Aspartate Amino Transf (AST/SGOT) 9 5-34 U/L Alanine Aminotransferase (ALT/SGPT) 10 0-55 U/L Alkaline Phosphatase 137 H 40-136 U/L Troponin I < 0.30 <0.30 NG/ML Total Protein 7.1 6.4-8.2 GM/DL Albumin 4.2 3.2-4.5 GM/DL Micro Results Microbiology 11/17/19 Influenza Types A,B Antigen (MENDEZ) - Final, Complete My Orders Orders - JEAN PAUL LRIIANO JR, MD Cbc And Manual Diff (11/17/19 20:43) Comprehensive Metabolic Panel (11/17/19 20:43) Troponin I Fs (11/17/19 20:43) Chest 1 View Ap/Pa Only (11/17/19 20:43) Ekg Tracing (11/17/19 20:43) Ed Iv/Invasive Line Start (11/17/19 20:54) Influenza A And B Antigens (11/17/19 20:56) Magnesium (11/17/19 21:28) Potassium Chloride (Tablet) (K Dur Table (11/17/19 21:30) Ketorolac Injection (Toradol Injection) (11/17/19 21:45) Labetalol Injection (Normodyne Injection (11/17/19 21:45) Medications Given in ED Current Medications Medications Dose Ordered Sig/Norma Route Start Time Stop Time Status Last Admin Dose Admin Ketorolac Tromethamine 15 mg ONCE ONCE IVP 11/17/19 21:45 11/17/19 21:46 11/17/19 21:36 15 MG Potassium Chloride 40 meq ONCE ONCE PO 11/17/19 21:30 11/17/19 21:31 DC 11/17/19 21:36 40 MEQ Vital Signs/I&O 11/17/19 20:24 Temp 37.6 Pulse 140 Resp 13 B/P (MAP) 206/133 (157) Pulse Ox 96 O2 Delivery Room Air Blood Pressure Mean: 157 Progress Progress Note : Time: 21:42 Progress Note At this point lab looks good other than small slightly hypokalemic we'll replaced with oral potassium will also draw a magnesium level with the history of her defibrillator firing and not able to validate this will send her to [facility] for observation discussed with Dr. Toledo and Dr. Crawford and both agreed to accept her to cardiac stepdown to give her some labetalol for the blood pressure issues Initial ECG Impression Date: Nov 17, 2019 Initial ECG Impression Time: 20:11 Initial ECG Rate: 136 Initial ECG Rhythm: S.Tach Initial ECG Intervals: Normal Initial ECG Impression: 1st Degree AV Block Departure Communication (Admissions) Time/Spoke to Admitting Phy: 21:42 Discussed defibrillator filing and the need for observation as well as lab results discussed with Dr. Toledo and with Dr. Crawford and agreed to accept Impression Primary Impression: Implantable cardioverter-defibrillator discharge Disposition: XFER SHT-TRM HOSP Condition: Stable Admissions Decision to Admit Reason: Admit from ER (General) Decision to Admit/Date: Nov 17, 2019 Time/Decision to Admit Time: 21:43 Transfer Method of Transfer: EMS Departure-Patient Inst. Referrals: RICHARD HERMAN MD (PCP/Family) Primary Care Physician JEAN PAUL LIRIANO JR, MD Nov 17, 2019 20:30
[2019-11-17 21:01] LABS: BASOPHILS % (AUTO) 0 % (0-10); EOSINOPHILS # (AUTO) 0.1 10^3/uL (0.0-0.3); EOSINOPHILS % (AUTO) 1 % (0-10); HEMATOCRIT 41 % (35-52); LYMPHOCYTES # (AUTO) 1.4 X 10^3 (1.0-4.0); LYMPHOCYTES % (AUTO) 22 % (12-44); MEAN CORPUSCULAR HEMOGLOBIN 31 PG (25-34); MEAN CORPUSCULAR HGB CONC 34 G/DL (32-36); MEAN CORPUSCULAR VOLUME 91 FL (80-99); MEAN PLATELET VOLUME 9.6 FL (7.4-10.4); MONOCYTES # (AUTO) 0.4 X 10^3 (0.0-1.0); MONOCYTES % (AUTO) 6 % (0-12); NEUTROPHILS # (AUTO) 4.4 X 10^3 (1.8-7.8); NEUTROPHILS % (AUTO) 70 % (42-75); PLATELET COUNT 290 10^3/uL (130-400); RED CELL DISTRIBUTION WIDTH 13.6 % (10.0-14.5); WHITE BLOOD COUNT 6.2 10^3/uL (4.3-11.0)
--- NOTE | 2019-11-17 21:13 | Diagnostic Imaging Report ---
INDICATION: Chest pain. EXAMINATION: Frontal chest was obtained at 8:53 p.m. COMPARISON: 11/03/2019. FINDINGS: Heart is normal in size. Pacemaker is unchanged. There is no focal infiltrate, pneumothorax or pleural fluid. IMPRESSION: No acute process in the chest. Dictated by: Dictated on workstation # [id number]
[2019-11-17 21:21] LABS: LYMPHOCYTES % (MANUAL) 15 %; MICROCYTOSIS SLIGHT; MONOCYTES % (MANUAL) 4 %; NEUTROPHILS % (MANUAL) 75 %; REACTIVE LYMPHOCYTES 6 %
[2019-11-17 21:23] LABS: ALANINE AMINOTRANSFERASE 10 U/L (0-55); ALBUMIN 4.2 GM/DL (3.2-4.5); ALKALINE PHOSPHATASE 137 U/L (40-136); BILIRUBIN,TOTAL 0.3 MG/DL (0.1-1.0); BUN/CREATININE RATIO 12; CALCIUM 9.2 MG/DL (8.5-10.1); CARBON DIOXIDE 25 MMOL/L (21-32); CHLORIDE 102 MMOL/L (98-107); GFR ESTIMATED > 60; GLUCOSE 103 MG/DL (70-105); POTASSIUM 2.9 MMOL/L (3.6-5.0); SODIUM 141 MMOL/L (135-145); TOTAL PROTEIN 7.1 GM/DL (6.4-8.2)
[2019-11-17] MEDS ORDERED: KCL 20 MEQ TAB (K-DUR) PO ONE (21:30)
[2019-11-17] MEDS ORDERED: KETOROLAC 30 MG/ML VIAL IVP ONE (21:45)
[2019-11-17] MEDS ORDERED: LABETALOL HCL 20 MG/4 ML VIAL IV ONE (21:45)
[2019-11-17] MEDS ORDERED: LABETALOL HCL 20 MG/4 ML VIAL IV PRN (23:45)
[2019-11-17 23:48] VITALS: BP 183/122
[2019-11-17 23:49] VITALS: BP 183/122
[2019-11-18] VITALS (15 sets, daily range): BP systolic 126–185; BP diastolic 57–104
--- NOTE | 2019-11-18 00:10 | NUR ---
PT REPORTING CONTINUED CHEST PAIN AT THIS TIME. 07/25 AND RADIATING TO RIGHT SHOULDER. PT REPORTS THAT THIS PAIN HAS BEEN HAPPENING "OFF AND ON FOR A REALLY LONG TIME." B/P 182/122, HR 93. THIS RN DISCUSSED PRN MEDICATIONS ORDERED BY ER PHYSICIAN FOR PAIN (500 MG PO TYLENOL Q4HR). PT REPORTS THAT SHE HAS BEEN ALTERNATING BETWEEN TYLENOL AND IBUPROFEN AT HOME AND "THE TYLENOL WON'T HELP HER PAIN." PT ALSO INFORMED THIS RN THAT USUALLY WHEN SHE COMES IN FOR THIS TYPE OF PAIN, "DILAUDID AND ATIVAN IS WHAT THEY ORDER AND IT SEEMS TO HELP." THIS RN CALLED TO REPORT PT'S CONTINUED PAIN, VS AND CURRENT MEDICATIONS ORDERED WITH DR. LILLY. NEW ORDERS RECEIVED FOR 1 MG IV MORPHINE Q2 PRN PAIN, 0.5 INCH NITRO PASTE Q6 HR PRN SBP>180 AND CHANGE PRN LABETALOL DOSE TO FROM 20MG TO 10 MG. NEW ORDERS DISCUSSED WITH PATIENT. PT NOW REQUESTING SANDWICH AND COKE AT THIS TIME.
[2019-11-18] MEDS ORDERED: morphine INJ 4 MG/ML 1 ML (VIAL/SYRINGE) ONE (00:14)
[2019-11-18] MEDS ORDERED: NITROGLYCERIN 2% OINT 1 GM UNIT DOSE PACKET TOP PRN (00:15)
[2019-11-18] MEDS ORDERED: NITROGLYCERIN 2% OINT 1 GM UNIT DOSE PACKET ONE (00:15)
[2019-11-18] MEDS: ACETAMINOPHEN 500 MG TAB (TYLENOL) PO PRN ×4 (00:25→15:20)
[2019-11-18] MEDS: morphine INJ 4 MG/ML 1 ML (VIAL/SYRINGE) IVP PRN ×2 (00:26→03:45)
[2019-11-18] MEDS ORDERED: LABETALOL HCL 20 MG/4 ML VIAL IV PRN (02:45)
--- NOTE | 2019-11-18 09:09 | Consultation-Cardiology ---
HPI-Cardiology Cardiology Consultation: Date of Consultation 11/18/19 Date of Admission Attending Physician Sue Gonzalez MD Admitting Physician John Wilde MD Consulting Physician JULIO TERESA JJK-Iiyfsi-Eooyin Hx Patient Social History Type Used: Cigarettes 2nd Hand Smoke Exposure: Yes Recent Foreign Travel: No Recent Infectious Disease Expo: No Hospitalization with Isolation: Denies Immunizations Up To Date Tetanus Booster (TDap): Unknown Date of Pneumonia Vaccine: Aug 14, 2016 Date of Influenza Vaccine: Jul 15, 2019 Past Medical History PMH As described under Assessment. Family Medical History Family Medical History: Does not provide fam h/o early CAD or SCD Allergies and Home Medications Allergies Coded Allergies: aspirin (Verified Allergy, Unknown, 03/07/19) latex (Verified Allergy, Unknown, 09/16/19) Home Medications Acetaminophen 500 Mg Tablet, 1,000 MG PO Q4H PRN for PAIN-MILD (1-4), (Reported) Albuterol Sulfate 1 Puff Puff, 2 PUFF INH Q4H PRN for SHORTNESS OF BREATH, (Reported) Amlodipine Besylate 10 Mg Tablet, 10 MG PO HS, (Reported) LAST FILLED #90 10-4-19 Clonidine HCl 0.1 Mg Tablet, 0.1 MG PO BID, (Reported) LAST FILLED #180 10-4-19 Cyclobenzaprine HCl 10 Mg Tablet, 10 MG PO BID PRN for MUSCLE SPASMS, (Reported) Diphenhydramine HCl 25 Mg Capsule, 50 MG PO HS PRN for SLEEP, (Reported) Fluoxetine HCl 20 Mg Capsule, 20 MG PO BID, (Reported) Lisinopril 20 Mg Tablet, 20 MG PO HS, (Reported) LAST FILLED #90 10-4-19 Metoprolol Succinate 50 Mg Tab.er.24h, 50 MG PO BID, (Reported) LAST FILLED #180 10-4-19 Pantoprazole Sodium 40 Mg Tablet.dr, 40 MG PO DAILY, (Reported) Spironolactone 25 Mg Tablet, 25 MG PO DAILY, (Reported) LAST FILLED #90 10-4-19 Sucralfate 1 Gm Tablet, 1 GM PO BID PRN for STOMACH UPSET, (Reported) Physical Exam-Cardiology Physical Exam Vital Signs/I&O 11/18/19 23:59 Intake Total 360 ml Output Total 0 ml Balance 360 ml Capillary Refill : Less Than 3 Seconds Data Review Labs Microbiology 11/17/19 Influenza Types A,B Antigen (MENDEZ) - Final, Complete A/P-Cardiology Assessment/Admission Diagnosis MPI of 08/15/19: no ischemia or infarction, normal LV function Card cath of 03/05/19 (Dr Corey at [facility]): mild CAD, normal systolic function, LVEDP not reported S/p single chamber ICD implanted in [address] Conn in [place], [place] for nonsustained polymorphic VT, sinus pauses and prolonged QT. Replaced in Sep [address] Conn (last interrogation in Jul 2019) Chronic tobacco use Clinical Quality Measures DVT/VTE Risk/Contraindication: Risk Factor Score Per Nursin RFS Level Per Nursing on Admit: 3=High JULIO SIBLEY Nov 18, 2019 09:09
[2019-11-18 09:12] LABS: BUN/CREATININE RATIO 13; CALCIUM 8.6 MG/DL (8.5-10.1); CARBON DIOXIDE 24 MMOL/L (21-32); CHLORIDE 107 MMOL/L (98-107); CREATININE SERUM 0.79 MG/DL (0.60-1.30); GFR ESTIMATED > 60; GLUCOSE 194 MG/DL (70-105); MAGNESIUM 1.7 MG/DL (1.6-2.4); SODIUM 143 MMOL/L (135-145)
--- NOTE | 2019-11-18 09:24 | Consultation-Cardiology ---
HPI-Cardiology Cardiology Consultation: Date of Consultation 11/18/19 Time Seen by a Provider: 09:00 Date of Admission Attending Physician Sue Gonzalez MD Admitting Physician John Wilde MD Consulting Physician ANDRE GODDARD MD, MA, FACP, FACC, FSCAI, CCDS Primary machine packer: Dr Rodriguez Primary finger cobbler: Dr Conn HPI: Chief Complaint: CC: Chest discomfort, probable shock from ICD HPI 49 yo woman with chronic chest discomfort: present for a year, continuous, waxes and wanes, varies from mild to severe, worse with certain foods, no correlation with exertion, no particular relieving factors except narcotic analgesics, not associated with other symptoms, experienced across entire chest, sometimes sharp and sometimes dull and sometimes a feeling of burning, a dull pain always present. Chronic exertional shortness of breath. Cough productive of small quantities of yellowish sputum in the mornings, chronic. Chronic malaise. No leg swelling. No recent palp. Last night, while walking to the bathroom, had a feeling of being knocked over. Feels that was due to an ICD discharge. Came to ER. Was hospitalized. Currently at the usual baseline of symptoms (see above) Review of Systems-Cardiology Review of Systems Constitutional: As described under HPI Eyes: No vision change Ears/Nose/Throat: No ear discharge, No nasal drainage, No recent hearing loss Respiratory: As described under HPI Cardiovascular: As described under HPI Gastrointestinal: No constipation, No diarrhea, No vomiting Genitourinary: No dysuria, No hematuria, No urine frequency changes Musculoskeletal: back pain (chronic) Skin: No rash, No ulcerations Psychiatric/Neurological: No focal weakness, No syncope Hematologic: No bleeding abnormalities [id number]-Luqngp Hx Patient Social History Type Used: Cigarettes 2nd Hand Smoke Exposure: Yes Recent Foreign Travel: No Recent Infectious Disease Expo: No Hospitalization with Isolation: Denies Immunizations Up To Date Tetanus Booster (TDap): Unknown Date of Pneumonia Vaccine: Aug 14, 2016 Date of Influenza Vaccine: Jul 15, 2019 Past Medical History PMH As described under Assessment. Family Medical History Family Medical History: Does not provide fam h/o early CAD or SCD Allergies and Home Medications Allergies Coded Allergies: aspirin (Verified Allergy, Unknown, 03/07/19) latex (Verified Allergy, Unknown, 09/16/19) Home Medications Albuterol Sulfate 1 Puff Puff, 2 PUFF INH Q4H PRN for SHORTNESS OF BREATH, (Reported) Amlodipine Besylate 10 Mg Tablet, 10 MG PO HS, (Reported) Benzonatate 100 Mg Capsule, 100 MG PO Q4H PRN for COUGH Prescribed by: LAMIN ADLER on 11/03/191900 Clonidine HCl 0.1 Mg Tablet, 0.1 MG PO BID, (Reported) Cyclobenzaprine HCl 10 Mg Tablet, 10 MG PO BID, (Reported) Diphenhydramine HCl 25 Mg Capsule, 50 MG PO HS PRN for SLEEP, (Reported) Fluoxetine HCl 20 Mg Capsule, 20 MG PO BID, (Reported) Guaifenesin/Codeine Phosphate 473 Ml Liquid, 10 ML PO Q6H PRN for cough Prescribed by: LAMIN ADLER on 11/03/191900 Hydrochlorothiazide 12.5 Mg Capsule, 12.5 MG PO DAILY, (Reported) Lisinopril 20 Mg Tablet, 20 MG PO HS, (Reported) Metoprolol Succinate 50 Mg Tab.er.24h, 50 MG PO BID, (Reported) Pantoprazole Sodium 40 Mg Tablet.dr, 40 MG PO DAILY, (Reported) Prednisone 20 Mg Tab, 40 MG PO DAILY Prescribed by: LAMIN ADLER on 11/03/191900 Sucralfate 1 Gm Tablet, 1 GM PO ACHS, (Reported) Patient Home Medication List Home Medication List Reviewed: Yes Physical Exam-Cardiology Physical Exam Vital Signs/I&O 11/17/19 11/17/19 11/17/19 11/17/19 22:57 23:45 23:48 23:49 Temp 36.3 36.3 Pulse 100 97 93 93 Resp 16 18 18 B/P (MAP) 154/101 183/122 (142) 183/122 Pulse Ox 97 95 95 O2 Delivery Room Air Room Air Room Air 11/17/19 11/18/19 11/18/19 11/18/19 23:55 00:00 00:00 00:15 Pulse 93 92 Resp 17 12 B/P (MAP) 150/104 (119) 159/100 (119) Pulse Ox 98 98 97 95 O2 Delivery Room Air Room Air Room Air Room Air 11/18/19 11/18/19 11/18/19 11/18/19 00:30 00:45 01:00 01:00 Pulse 105 95 91 93 Resp 29 34 23 B/P (MAP) 126/83 (97) 185/100 (128) Pulse Ox 98 98 O2 Delivery Room Air Room Air Room Air 11/18/19 11/18/19 11/18/19 11/18/19 01:15 01:30 01:45 02:00 Pulse 86 92 96 96 Resp 16 19 18 18 B/P (MAP) 140/75 (96) 130/74 (92) 128/65 (86) 139/57 (84) O2 Delivery Room Air Room Air Room Air Room Air 11/18/19 11/18/19 11/18/19 11/18/19 03:00 04:00 04:00 05:00 Pulse 89 82 84 Resp 15 11 15 B/P (MAP) 139/80 (99) 137/68 (91) 150/91 (110) Pulse Ox 97 O2 Delivery Room Air Room Air Room Air Room Air 11/18/19 11/18/19 11/18/19 06:00 07:00 08:00 Pulse 84 86 89 Resp 15 15 B/P (MAP) 135/81 (99) 140/77 (98) O2 Delivery Room Air Room Air Capillary Refill : Less Than 3 Seconds Constitutional: AAO x 3, well-developed, well-nourished HEENT: PERRL, hearing is well preserved; No xanthelasmas are seen Neck: other (edentulous jaws), carotid pulses are 2 + bilaterally, with good upstrokes Respiratory: other (lungs resonant to percussion, good bilat air entry, somewhat prolonged exp phase and a few scattered exp wheezes) Cardiovascular: regular rate-rhythm, S1 and S2, systolic murmur (soft ARMANDO at card base) Gastrointestinal: No tender; soft; No guarding, No rebound; audible bowel sounds Extremities: No clubbing, No cyanosis, No significant edema Neurologic/Psychiatric: oriented x 3, other (moves all limbs eaually) Skin: No rash on exposed areas, No ulcerations on exposed areas Data Review Labs Laboratory Tests 11/17/19 20:52: White Blood Count 6.2, Red Blood Count 4.55, Hemoglobin 14.0, Hematocrit 41, Mean Corpuscular Volume 91, Mean Corpuscular Hemoglobin 31, Mean Corpuscular Hemoglobin Concent 34, Red Cell Distribution Width 13.6, Platelet Count 290, Mean Platelet Volume 9.6, Neutrophils (%) (Auto) 70, Lymphocytes (%) (Auto) 22, Monocytes (%) (Auto) 6, Eosinophils (%) (Auto) 1, Basophils (%) (Auto) 0, Neutrophils # (Auto) 4.4, Lymphocytes # (Auto) 1.4, Monocytes # (Auto) 0.4, Eosinophils # (Auto) 0.1, Basophils # (Auto) 0.0, Neutrophils % (Manual) 75, Lymphocytes % (Manual) 15, Monocytes % (Manual) 4, Reactive Lymphocytes 6, Microcytosis SLIGHT, Sodium Level 141, Potassium Level 2.9L, Chloride Level 102, Carbon Dioxide Level 25, Anion Gap 14, Blood Urea Nitrogen 7, Creatinine 0.60, Estimat Glomerular Filtration Rate > 60, BUN/Creatinine Ratio 12, Glucose Level 103, Calcium Level 9.2, Corrected Calcium 9.0, Total Bilirubin 0.3, Aspartate Amino Transf (AST/SGOT) 9, Alanine Aminotransferase (ALT/SGPT) 10, Alkaline Phosphatase 137H, Troponin I < 0.30, Total Protein 7.1, Albumin 4.2 11/17/19 21:28: Magnesium Level 1.8 11/18/19 08:40: Sodium Level 143, Potassium Level 3.0L, Chloride Level 107, Carbon Dioxide Level 24, Anion Gap 12, Blood Urea Nitrogen 10, Creatinine 0.79, Estimat Glomerular Filtration Rate > 60, BUN/Creatinine Ratio 13, Glucose Level 194H, Calcium Level 8.6, Magnesium Level 1.7 Microbiology 11/17/19 Influenza Types A,B Antigen (MENDEZ) - Final, Complete Laboratory Tests 11/17/19 20:52 11/18/19 08:40 A/P-Cardiology Assessment/Admission Diagnosis Chronic, non-cardiac chest pain. No evidence of ACS On ICD discharges. Device interrogated today () and functioning normally Hypokalemia, likely due to chronic HCTZ therapy MPI of 08/15/19: no ischemia or infarction, normal LV function Card cath of 03/05/19 (Dr Corey at [facility]): mild CAD, normal systolic function, LVEDP not reported S/p single chamber ICD implanted in [address] in [place], [place] for nonsustained polymorphic VT, sinus pauses and prolonged QT. Replaced in Sep [address] Conn (last interrogation in Jul 2019) Chronic tobacco use Discussion and Recomendations * We interviewed and examined her, reviewed her history and records, and interrogated the device * There is no evidence of ACS or ICD discharges or any clinical evidence of CHF * Symptoms appear to be non-cardiac and management of these is with the Hospitalist Service * We recommend replenishing K and d/c HCTZ * We have advised her to continue close cardiac f/u with her machine packer (Dr Rodriguez) and her finger cobbler (Dr Conn) Clinical Quality Measures DVT/VTE Risk/Contraindication: Risk Factor Score Per Nursin RFS Level Per Nursing on Admit: 3=High ANDRE GODDARD MD FACP FAC CCDS Nov 18, 2019 09:24
[2019-11-18] MEDS ORDERED: KCL 20 MEQ TAB (K-DUR) PO NR ×2 (09:30→11:30)
[2019-11-18] MEDS ORDERED: SPIR25TA5 PO (09:46)
[2019-11-18] MEDS ORDERED: PANT40TA3 PO (09:46)
[2019-11-18] MEDS ORDERED: ACET-2267 PO (09:46)
--- NOTE | 2019-11-18 09:47 | NUR ---
SPOKE WITH THE PATIENT ABOUT HER MEDICATIONS. WE WENT OVER THE EXT MED HX AND SHE VERIFIED HOW SHE TAKES THEM TO THE BEST OF HER ABILITY. SHE STATES SHE DOES NOT TAKE THE CARAFATE QID, SHE TAKES IT MORE LIKE BID PRN. SHE STATES SHE NO LONGER TAKING THE CHOLESTEROL MEDICATION THAT WAS PRESCRIBED BY DR. PULLIAM. SHE STATES SHE IS TAKING TWO FLUID PILLS, HCTZ AND SPIRONOLACTONE. SHE IS PAST DUE FOR REFILL ON SEVERAL OF HER MEDICATIONS, SHE ADMITS MISSING DOSES FROM TIME TO TIME. I HAVE NOTED THE PAST DUE FILL DATE ON THE MED REC. SHE STATES SHE TAKES BENADRYL AND TYLENOL OTC PRN.
--- NOTE | 2019-11-18 14:53 | Discharge Summary ---
Discharge Summary Hospital Course Was the Problem List Reviewed?: Yes Hospital Course Date of Admission: Nov 17, 2019 at 21:54 Admission Diagnosis : Chest pain Family Physician/Provider: John Wilde MD Date of Discharge: 11/18/19 Discharge Diagnosis: Musculoskeletal chest pain Hospital Course: Carmita Goss is a 49-year-old female who presented with chest pain. She has an ICD and she believes that it was malfunctioning and firing. It was interrogated and there were no events. Cardiology was consulted and evaluated her. 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 Labs and Pending Lab Test: Laboratory Tests 11/17/19 20:52: White Blood Count 6.2, Red Blood Count 4.55, Hemoglobin 14.0, Hematocrit 41, Mean Corpuscular Volume 91, Mean Corpuscular Hemoglobin 31, Mean Corpuscular Hemoglobin Concent 34, Red Cell Distribution Width 13.6, Platelet Count 290, Mean Platelet Volume 9.6, Neutrophils (%) (Auto) 70, Lymphocytes (%) (Auto) 22, Monocytes (%) (Auto) 6, Eosinophils (%) (Auto) 1, Basophils (%) (Auto) 0, Neutrophils # (Auto) 4.4, Lymphocytes # (Auto) 1.4, Monocytes # (Auto) 0.4, Eosinophils # (Auto) 0.1, Basophils # (Auto) 0.0, Neutrophils % (Manual) 75, Lymphocytes % (Manual) 15, Monocytes % (Manual) 4, Reactive Lymphocytes 6, Microcytosis SLIGHT, Sodium Level 141, Potassium Level 2.9L, Chloride Level 102, Carbon Dioxide Level 25, Anion Gap 14, Blood Urea Nitrogen 7, Creatinine 0.60, Estimat Glomerular Filtration Rate > 60, BUN/Creatinine Ratio 12, Glucose Level 103, Calcium Level 9.2, Corrected Calcium 9.0, Total Bilirubin 0.3, Aspartate Amino Transf (AST/SGOT) 9, Alanine Aminotransferase (ALT/SGPT) 10, Alkaline Phosphatase 137H, Troponin I < 0.30, Total Protein 7.1, Albumin 4.2 11/17/19 21:28: Magnesium Level 1.8 11/18/19 08:40: Sodium Level 143, Potassium Level 3.0L, Chloride Level 107, Carbon Dioxide Level 24, Anion Gap 12, Blood Urea Nitrogen 10, Creatinine 0.79, Estimat Glomerular Filtration Rate > 60, BUN/Creatinine Ratio 13, Glucose Level 194H, Calcium Level 8.6, Magnesium Level 1.7 Microbiology 11/17/19 Influenza Types A,B Antigen (MENDEZ) - Final, Complete Home Meds Active Reported Tylenol Extra Strength (Acetaminophen) 500 Mg Tablet 1,000 Mg PO Q4H PRN Spironolactone 25 Mg Tablet 25 Mg PO DAILY LAST FILLED #90 07-19-19 Pantoprazole Sodium 40 Mg Tablet.dr 40 Mg PO DAILY Hydrochlorothiazide 12.5 Mg Capsule 12.5 Mg PO DAILY LAST FILLED #30 09-17-19 Sucralfate 1 Gm Tablet 1 Gm PO BID PRN Benadryl (Diphenhydramine HCl) 25 Mg Capsule 50 Mg PO HS PRN Cyclobenzaprine HCl 10 Mg Tablet 10 Mg PO BID PRN Proair Hfa (Albuterol Sulfate) 1 Puff Puff 2 Puff INH Q4H PRN Fluoxetine HCl 20 Mg Capsule 20 Mg PO BID Amlodipine Besylate 10 Mg Tablet 10 Mg PO HS LAST FILLED #90 07-19-19 Metoprolol Succinate 50 Mg Tab.er.24h 50 Mg PO BID LAST FILLED #180 07-19-19 Lisinopril 20 Mg Tablet 20 Mg PO HS LAST FILLED #90 07-19-19 Clonidine HCl 0.1 Mg Tablet 0.1 Mg PO BID LAST FILLED #180 07-19-19 Assessment/Pt Instructions Follow-up with your cylinder die machine operator. Return with worsening shortness of breath, c hest pain, or if you feel like you're getting worse. Discharge Planning: <30 minutes discharge planning Discharge Instructions Discharge Diet: No Restrictions Activity as Tolerated: Yes Consultations Cardiology Discharge Physical Examination Vital Signs Vital Signs Date Time Temp Pulse Resp B/P (MAP) Pulse Ox O2 Delivery O2 Flow Rate FiO2 11/18/19 12:54 71 11/18/19 12:33 36.5 11/18/19 12:00 20 161/78 (105) Room Air 11/18/19 12:00 97 General Appearance: No Apparent Distress, WD/WN HEENT: PERRL/EOMI, Pharynx Normal Respiratory: Lungs Clear, Normal Breath Sounds, No Respiratory Distress Cardiovascular: Regular Rate, Rhythm, No Murmur Gastrointestinal: Normal Bowel Sounds, Non Tender, Soft Extremity: Normal Inspection, Non Tender, No Pedal Edema Skin: Normal Color, Warm/Dry Neurologic/Psychiatric: Alert, Oriented x3, No Motor/Sensory Deficits, Normal Mood/Affect Allergies: Coded Allergies: aspirin (Verified Allergy, Unknown, 03/07/19) latex (Verified Allergy, Unknown, 09/16/19) Discharge Summary Date of Admission Nov 17, 2019 at 21:54 Date of Discharge Discharge Date: Nov 18, 2019 Discharge Time: 14:52 Admission Diagnosis Chest pain Consults/Procedures Consulations Cardiology Discharge Diagnosis Musculoskeletal chest pain Clinical Quality Measures DVT/VTE Risk/Contraindication: Risk Factor Score Per Nursin RFS Level Per Nursing on Admit: 3=High HEATHER PULLIAM MD Nov 18, 2019 14:52
--- OUTSIDE RECORDS SUMMARY | 2019-11-23 06:27 | XMS REPORT | Continuity of Care Document ---
Author Organization Unknown Address Unknown Phone Unavailable Allergies Active Description Code Type Severity Reaction Onset Reported/Identified Relationship to Patient Clinical Status Yes aspirin [id number] Drug Allergy Unknown N/A 03/07/2019 Yes morphine [id number] Drug Allergy Unknown N/A 04/21/2019 Yes morphine [id number] Drug Allergy Unknown Pt has received 09/06/2019 Yes latex [id number] Drug Allergy Unknown N/A 09/16/2019 Medications There [...] 03/05/2019 CAROLANN GUTHRIE DOED T Ot T82.198A [facility] COMPL OF OTHER CARDIAC ELECTRONIC [...] 03/06/2019 JERRI TALBERT, [place] T Ot T82.198A [facility] COMPL OF OTHER CARDIAC ELECTRONIC [...] ARISTEO Ot I25.10 ATHSCL HEART DISEASE OF [place] CORONARY 03/07/2019 COYNE DO, ARISTEO Ot R10.31 [...] 03/10/2019 JERRI TALBERT, [place] T Ot T82.198A [facility] COMPL OF OTHER CARDIAC ELECTRONIC [...] ARISTEO Ot I25.10 ATHSCL HEART DISEASE OF [place] CORONARY 03/12/2019 COYNE DO, ARISTEO Ot R10.31 [...] Ot I25. 10 ATHSCL HEART DISEASE OF [place] CORONARY 04/21/2019 NEHA ROSE MD Ot R07. [...] Ot I25. 10 ATHSCL HEART DISEASE OF [place] CORONARY 04/27/2019 NEHA ROSE MD Ot R07. 9 CHEST PAIN, UNSPECIFIED 04/27/2019 NEHA ORSE MD Ot Z88. 5 ALLERGY STATUS TO [...] CNTCT W AND [place]PSR [place] ENV[place]BACCO [facility] [place] DO, ARISTEO Ot Z88.5 ALLERGY STATUS TO NARCOTIC AGENT STATUS 07/16/2019 COYNE DO, ARISTEO Ot Z88.6 ALLERGY STATUS TO ANALGESIC AGENT STATUS 07/16/2019 [place] DO, ARISTEO Ot Z90.710 ACQUIRED ABSENCE OF BOTH CERVIX AND UTER 07/16/2019 [place] DO, ARISTEO Ot Z95.810 PRESENCE OF AUTOMATIC (IMPLANTABLE) CARD 07/16/2019 [place] DO, ARISTEO Ot Z98.51 TUBAL LIGATION STATUS 07/18/2019 [place] DO, ARISTEO Ot I10 ESSENTIAL (PRIMARY) HYPERTENSION 07/18/2019 [place] DO, ARISTEO Ot I25.2 OLD MYOCARDIAL INFARCTION 07/18/2019 [place] DO, ARISTEO Ot R03.0 ELEVATED BLOOD-PRESSURE READING, W/O GHADA 07/18/2019 [place] DO, ARISTEO Ot R07.9 CHEST PAIN, UNSPECIFIED 07/18/2019 [place] DO, ARISTEO Ot Z77.22 CNTCT W AND EXPSR TO ENVIRON TOBACCO [facility] [place] DO, ARISTEO Ot Z88.5 ALLERGY STATUS TO NARCOTIC AGENT STATUS 07/18/2019 [place] DO, ARISTEO Ot Z88.6 ALLERGY STATUS TO ANALGESIC AGENT STATUS 07/18/2019 [place] DO, ARISTEO Ot Z90.710 ACQUIRED ABSENCE OF BOTH CERVIX AND UTER 07/18/2019 [place] DO, ARISTEO Ot Z95.810 PRESENCE OF AUTOMATIC (IMPLANTABLE) CARD 07/18/2019 [place] DO, ARISTEO Ot Z98.51 TUBAL LIGATION STATUS [...] Ot R07. 9 CHEST PAIN, UNSPECIFIED 08/02/2019 CRIAG KHANNA MD A Ot Z77. 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 09/06/2019 ALEXANDRE MATA MD, [...] 09/11/2019 CRAIG KHANNA MD A Ot T82.191A [facility] COMPL OF CARDIAC PULSE GENERATOR (B 09/11/2019 [...] 09/13/2019 CRAIG KHANNA MD A Ot T82.191A [facility] COMPL OF CARDIAC PULSE GENERATOR (B 09/13/2019 [...] MD, Ot I25.10 ATHSCL HEART DISEASE OF [place] CORONARY 09/16/2019 ALEXANDRE MATA MD, Ot I25.2 [...] ALEXANDRE MATA MD, Ot Z79.89 9 OTHER RETIREMENT (CURRENT) DRUG THERAPY 09/16/2019 ALEXANDRE MATA MD, [...] 09/16/2019 ROVENSTINE DO, CHEVY L Ot T82.191A [facility] COMPL OF CARDIAC PULSE GENERATOR (B 09/16/2019 [...] WITHOUT 09/19/2019 CRAIG KHANNA MD Ot T82.191A [facility] COMPL OF CARDIAC PULSE GENERATOR (B 09/19/2019 [...] 09/21/2019 ROVENSTINE DO, CHEVY L Ot T82.191A [facility] COMPL OF CARDIAC PULSE GENERATOR (B 09/21/2019 [...] CHEVY L Ot Z98.51 TUBAL LIGATION STATUS 10/03/2019 RYANCLAUDIA SHARP DO L Ot E78.00 PURE HYPERCHOLESTEROLEMIA, UNSPECIFIED 10/03/2019 CONNOR TALBERTCLAUDIA Ot E78 .5 HYPERLIPIDEMIA, UNSPECIFIED 10/03/2019 CONNOR TALBERTCLAUDIA Ot I10 ESSENTIAL (PRIMARY) HYPERTENSION 10/03/2019 CONNOR TALBERTCLAUDIA Ot I25 .2 OLD MYOCARDIAL INFARCTION 10/03/2019 CONNOR TALBERTCLAUDIA Ot K21 .9 GASTRO-ESOPHAGEAL REFLUX DISEASE WITHOUT 10/03/2019 CONNOR TALBERTCLAUDIA Ot R07.89 OTHER CHEST PAIN 10/03/2019 CONNOR TALBERTCLAUDIA Ot R07 .9 CHEST PAIN, UNSPECIFIED 10/03/2019 CONNOR TALBERTCLAUDIA Ot Z77.22 CNTCT W AND EXPSR TO ENVIRON TOBACCO SMO 10/03/2019 CONNOR TALBERTCLAUDIA Ot Z88 .5 ALLERGY STATUS TO NARCOTIC AGENT STATUS 10/03/2019 CONNOR TALBERTCLAUDIA Ot Z88 .6 ALLERGY STATUS TO ANALGESIC AGENT STATUS 10/03/2019 CONNOR TALBERTCLAUDIA Ot Z90.710 ACQUIRED ABSENCE OF BOTH CERVIX AND UTER 10/03/2019 CONNOR TALBERTCLAUDIA Ot Z91.040 LATEX ALLERGY STATUS 10/03/2019 CONNOR TALBERT CLAUDIA L Ot Z95.810 PRESENCE OF AUTOMATIC (IMPLANTABLE) CARD 10/03/2019 CONNOR TALBERTCLAUDIA Ot Z98.51 TUBAL LIGATION STATUS 10/05/2019 JEAN PAUL LIRIANO MD Ot E78.00 PURE HYPERCHOLESTEROLEMIA, UNSPECIFIED 10/05/2019 JEAN PAUL LIRIANO MD Ot I1 0 ESSENTIAL (PRIMARY) HYPERTENSION 10/05/2019 JEAN PAUL LIRIANO MD Ot I25.2 OLD MYOCARDIAL INFARCTION 10/05/2019 JEAN PAUL LIRIANO MD Ot I48.91 UNSPECIFIED ATRIAL FIBRILLATION 10/05/2019 JEAN PAUL LIRIANO MD Ot K21.9 GASTRO-ESOPHAGEAL REFLUX DISEASE WITHOUT 10/05/2019 JEAN PAUL LIRIANO MD Ot R07.9 CHEST PAIN, UNSPECIFIED 10/05/2019 JEAN PAUL LIRIANO MD Ot Z77.22 CNTCT W AND EXPSR TO ENVIRON TOBACCO SMO 10/05/2019 JEAN PAUL LIRIANO MD Ot Z88.5 ALLERGY STATUS TO NARCOTIC AGENT STATUS 10/05/2019 JEAN PAUL LIRIANO MD Ot Z88.6 ALLERGY STATUS TO ANALGESIC AGENT STATUS 10/05/2019 JEAN PAUL LIRIANO MD Ot Z90.710 ACQUIRED ABSENCE OF BOTH CERVIX AND UTER 10/05/2019 JEAN PAUL LIRIANO MD Ot Z91.040 LATEX ALLERGY STATUS 10/05/2019 JEAN PAUL LIRIANO MD Ot Z95.810 PRESENCE OF AUTOMATIC (IMPLANTABLE) CARD 10/05/2019 JEAN PAUL LIRIANO MD Ot Z98.51 TUBAL LIGATION STATUS 10/05/2019 ALEXANDRE MATA MD Ot Z01.81 8 ENCOUNTER FOR OTHER PREPROCEDURAL EXAMIN 10/07/2019 KURT TREJO MD Ot E78.00 PURE HYPERCHOLESTEROLEMIA, UNSPECIFIED 10/07/2019 KURT TREJO MD Ot F17.210 NICOTINE DEPENDENCE, CIGARETTES, UNCOMPL 10/07/2019 KURT TREJO MD Ot I10 ESSENTIAL (PRIMARY) HYPERTENSION 10/07/2019 KURT TREJO MD Ot I25.2 OLD MYOCARDIAL INFARCTION 10/07/2019 KURT TREJO MD Ot I48.91 UNSPECIFIED ATRIAL FIBRILLATION 10/07/2019 KURT TREJO MD Ot K21.9 GASTRO-ESOPHAGEAL REFLUX DISEASE WITHOUT 10/07/2019 KURT TREJO MD Ot R07.89 OTHER CHEST PAIN 10/07/2019 KURT TREJO MD Ot R07.9 CHEST PAIN, UNSPECIFIED 10/07/2019 KURT TREJO MD Ot Z88.5 ALLERGY STATUS TO NARCOTIC AGENT STATUS 10/07/2019 KURT TREJO MD Ot Z88.6 ALLERGY STATUS TO ANALGESIC AGENT STATUS 10/07/2019 KURT TREJO MD Ot Z90.710 ACQUIRED ABSENCE OF BOTH CERVIX AND UTER 10/07/2019 KURT TREJO MD Ot Z91.040 LATEX ALLERGY STATUS 10/07/2019 KURT TREJO MD Ot Z95.810 PRESENCE OF AUTOMATIC (IMPLANTABLE) CARD 10/07/2019 KURT TREJO MD Ot Z95.9 PRESENCE OF CARDIAC AND VASCULAR IMPLANT 10/07/2019 KURT TREJO MD Ot Z98.51 TUBAL LIGATION STATUS 10/08/2019 KURT TREJO MD Ot E78.00 PURE HYPERCHOLESTEROLEMIA, UNSPECIFIED 10/08/2019 KURT TREJO MD Ot I10 ESSENTIAL (PRIMARY) HYPERTENSION 10/08/2019 KURT TREJO MD Ot I16.0 HYPERTENSIVE URGENCY 10/08/2019 KURT TREJO MD Ot I25.2 OLD MYOCARDIAL INFARCTION 10/08/2019 KURT TREJO MD Ot I48.91 UNSPECIFIED ATRIAL FIBRILLATION 10/08/2019 KURT TREJO MD Ot K21.9 GASTRO-ESOPHAGEAL REFLUX DISEASE WITHOUT 10/08/2019 KURT TREJO MD Ot R07.2 PRECORDIAL PAIN 10/08/2019 KURT TREJO MD Ot Z77.22 CNTCT W AND EXPSR TO ENVIRON TOBACCO SMO 10/08/2019 KURT TREJO MD Ot Z88.5 ALLERGY STATUS TO NARCOTIC AGENT STATUS 10/08/2019 KURT TREJO MD Ot Z88.6 ALLERGY STATUS TO ANALGESIC AGENT STATUS 10/08/2019 KURT TREJO MD Ot Z90.710 ACQUIRED ABSENCE OF BOTH CERVIX AND UTER 10/08/2019 KURT TREJO MD Ot Z91.040 LATEX ALLERGY STATUS 10/08/2019 KURT TREJO MD Ot Z95.810 PRESENCE OF AUTOMATIC (IMPLANTABLE) CARD 10/08/2019 KURT TREJO MD Ot Z98.51 TUBAL LIGATION STATUS 10/08/2019 JEAN PAUL LIRIANO MD Ot E78.00 [...] LIRIANO MD Ot Z98.51 TUBAL LIGATION STATUS 10/08/2019 LAMIN ADLER MD Ot E78.0 0 PURE HYPERCHOLESTEROLEMIA, UNSPECIFIED 10/08/2019 LAMIN ADLER MD Ot F17.2 10 NICOTINE DEPENDENCE, CIGARETTES, UNCOMPL 10/08/2019 LAMIN ADLER MD Ot I10 ESSENTIAL (PRIMARY) HYPERTENSION 10/08/2019 LAMIN ADLER MD Ot I25.2 OLD MYOCARDIAL INFARCTION 10/08/2019 LAMIN ADLER MD Ot I48.9 1 UNSPECIFIED ATRIAL FIBRILLATION 10/08/2019 LAMIN ADLER MD Ot K21.9 GASTRO-ESOPHAGEAL REFLUX DISEASE WITHOUT 10/08/2019 LAMIN ADLER MD Ot R20.2 PARESTHESIA OF SKIN 10/08/2019 LAMIN ADLER MD Ot S60.221A CONTUSION OF RIGHT HAND, INITIAL ENCOUNT 10/08/2019 LAMIN ADLER MD, Ot T23.161A BURN OF FIRST DEGREE OF BACK OF RIGHT DE JESUS 10/08/2019 LAMIN ADLER MD Ot X11.8XXA CONTACT WITH OTHER HOT TAP-WATER, INITIA 10/08/2019 LAMIN ADLER MD Ot Z88.5 ALLERGY STATUS TO NARCOTIC AGENT STATUS 10/08/2019 LAMIN ADLER MD Ot Z88.6 ALLERGY STATUS TO ANALGESIC AGENT STATUS 10/08/2019 LAMIN ADLER MD Ot Z90.7 10 ACQUIRED ABSENCE OF BOTH CERVIX AND UTER 10/08/2019 LAMIN ADLER MD Ot Z91.0 40 LATEX ALLERGY STATUS 10/08/2019 LAMIN ADLER MD Ot Z95.8 10 PRESENCE OF AUTOMATIC (IMPLANTABLE) CARD 10/08/2019 LAMIN ADLER MD Ot Z98.5 1 TUBAL LIGATION STATUS 10/10/2019 [...] OF RIGHT DE JESUS 10/10/2019 LAMIN ADLER MD Ot X11.8XXA CONTACT WITH OTHER HOT TAP-WATER, INITIA 10/10/2019 LAMIN ADLER MD Ot Z88.5 ALLERGY STATUS TO NARCOTIC AGENT STATUS 10/10/2019 LAMIN ADLER MD Ot Z88.6 ALLERGY STATUS TO ANALGESIC AGENT STATUS 10/10/2019 LAMIN ADLER MD Ot Z90.7 10 ACQUIRED ABSENCE OF BOTH CERVIX AND UTER 10/10/2019 LAMIN ADLER MD Ot Z91.0 40 LATEX ALLERGY STATUS 10/10/2019 LAMIN ADLER MD Ot Z95.8 10 PRESENCE OF AUTOMATIC (IMPLANTABLE) CARD 10/10/2019 LAMIN ADLER MD Ot Z98.5 1 TUBAL LIGATION STATUS 10/10/2019 [...] MD Ot Z98.51 TUBAL LIGATION STATUS 10/10/2019 MILTON DUNCAN, NEHA Mejia Ot E78. 00 PURE HYPERCHOLESTEROLEMIA, UNSPECIFIED 10/10/2019 MILTON DUNCAN, NEHA Mejia Ot I10 ESSENTIAL (PRIMARY) HYPERTENSION 10/10/2019 MILTON DUNCAN, NEHA Mejia Ot I25. 2 OLD MYOCARDIAL INFARCTION 10/10/2019 MILTON DUNCAN, NEHA Mejia Ot I48. 91 UNSPECIFIED ATRIAL FIBRILLATION 10/10/2019 MILTON DUNCAN, NEHA Mejia Ot K21. 9 GASTRO-ESOPHAGEAL REFLUX DISEASE WITHOUT 10/10/2019 MILTON DUNCAN, NEHA Mejia Ot T23.061D BURN OF UNSP DEGREE OF BACK OF RIGHT RYAN 10/10/2019 MILTON DUNCAN, NEHA Mejia Ot T31. 0 CARRIZALES INVOLVING LESS THAN 10% OF BODY HEARD 10/10/2019 MILTON DUNCAN, NEHA Mejia Ot X58.XXXD EXPOSURE TO OTHER SPECIFIED FACTORS, SUB 10/10/2019 MILTON DUNCAN, NEHA Mejia Ot Z77. 22 CNTCT W AND EXPSR TO ENVIRON TOBACCO SMO 10/10/2019 MILTON DUNCAN, NEHA Mejia Ot Z88. 5 ALLERGY STATUS TO NARCOTIC AGENT STATUS 10/10/2019 MILTON DUNCAN, NEHA Mejia Ot Z88. 6 ALLERGY STATUS TO ANALGESIC AGENT STATUS 10/10/2019 MILTON DUNCAN, NEHA Mejia Ot Z90.710 ACQUIRED ABSENCE OF BOTH CERVIX AND UTER 10/10/2019 MILTON DUNCAN, NEHA Mejia Ot Z91.040 LATEX ALLERGY STATUS 10/10/2019 MILTON DUNCAN, NEHA Mejia Ot Z95.810 PRESENCE OF AUTOMATIC (IMPLANTABLE) CARD 10/10/2019 MILTON DUNCAN, NEHA Mejia Ot Z98. 51 TUBAL LIGATION STATUS 10/12/2019 ROSANNE DUNN MD Ot E78 .5 HYPERLIPIDEMIA, UNSPECIFIED 10/12/2019 ROSANNE DUNN MD Ot E87 .6 HYPOKALEMIA 10/12/2019 ROSANNE DUNN MD Ot F17.200 NICOTINE DEPENDENCE, UNSPECIFIED, UNCOMP 10/12/2019 ROSANNE DUNN MD Ot G89.29 OTHER CHRONIC PAIN 10/12/2019 ROSANNE DUNN MD Ot I10 ESSENTIAL (PRIMARY) HYPERTENSION 10/12/2019 ROSANNE DUNN MD Ot I25 .2 OLD MYOCARDIAL INFARCTION 10/12/2019 ROSANNE DUNN MD Ot I48.91 UNSPECIFIED ATRIAL FIBRILLATION 10/12/2019 ROSANNE DUNN MD Ot K21 .9 GASTRO-ESOPHAGEAL REFLUX DISEASE WITHOUT 10/12/2019 ROSANNE DUNN MD Ot M54 .9 DORSALGIA, UNSPECIFIED 10/12/2019 ROSANNE DUNN MD Ot R07 .9 CHEST PAIN, UNSPECIFIED 10/12/2019 ROSANNE DUNN MD Ot T82.198A [facility] COMPL OF OTHER CARDIAC ELECTRONIC D 10/12/2019 ROSANNE DUNN MD, Ot 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 10/12/2019 ROSANNE DUNN MD Ot Z82.49 FAMILY HX OF ISCHEM HEART DIS AND OTH DI 10/12/2019 ROSANNE DUNN MD, Ot Z88 .5 ALLERGY STATUS TO NARCOTIC AGENT STATUS 10/12/2019 ROSANNE DUNN MD Ot Z88 .6 ALLERGY STATUS TO ANALGESIC AGENT STATUS 10/12/2019 ROSANNE DUNN MD Ot Z90.49 ACQUIRED ABSENCE OF OTHER SPECIFIED PART 10/12/2019 ROSANNE DUNN MD Ot Z90.710 ACQUIRED ABSENCE OF BOTH CERVIX AND UTER 10/12/2019 ROSANNE DUNN MD Ot Z91.040 LATEX ALLERGY STATUS 10/12/2019 ROSANNE DUNN MD Ot Z98 .1 ARTHRODESIS STATUS 10/12/2019 ROSANNE DUNN MD Ot Z98.51 TUBAL LIGATION STATUS 10/12/2019 ROSANNE DUNN MD Ot E78 .5 HYPERLIPIDEMIA, UNSPECIFIED 10/12/2019 ROSANNE DUNN MD Ot E87 .6 HYPOKALEMIA 10/12/2019 ROSANNE DNUN MD Ot F17.200 NICOTINE DEPENDENCE, UNSPECIFIED, UNCOMP 10/12/2019 ROSANNE DUNN MD Ot G89.29 OTHER CHRONIC PAIN 10/12/2019 ROSANNE DUNN MD Ot I10 ESSENTIAL (PRIMARY) HYPERTENSION 10/12/2019 ROSANNE DUNN MD Ot I25 .2 OLD MYOCARDIAL INFARCTION 10/12/2019 ROSANNE DUNN MD Ot I48.91 UNSPECIFIED ATRIAL FIBRILLATION 10/12/2019 ROSANNE DUNN MD Ot K21 .9 GASTRO-ESOPHAGEAL REFLUX DISEASE WITHOUT 10/12/2019 ROSANNE DUNN MD, Ot M54 .9 DORSALGIA, UNSPECIFIED 10/12/2019 ROSANNE DUNN MD, Ot R07 .9 CHEST PAIN, UNSPECIFIED 10/12/2019 ROSANNE DUNN MD Ot T82.198A [facility] COMPL OF OTHER CARDIAC ELECTRONIC D 10/12/2019 ROSANNE DUNN MD Ot Z79.899 OTHER RETIREMENT (CURRENT) DRUG THERAPY 10/12/2019 ROSANNE DUNN MD Ot Z82.49 FAMILY HX OF ISCHEM HEART DIS AND OTH DI 10/12/2019 ROSANNE DUNN MD, Ot Z88 .5 ALLERGY STATUS TO NARCOTIC AGENT STATUS 10/12/2019 ROSANNE DUNN MD, Ot Z88 .6 ALLERGY STATUS TO ANALGESIC AGENT STATUS 10/12/2019 ROSANNE DUNN MD Ot Z90.49 ACQUIRED ABSENCE OF OTHER SPECIFIED PART 10/12/2019 ROSANNE DUNN MD Ot Z90.710 ACQUIRED ABSENCE OF BOTH CERVIX AND UTER 10/12/2019 ROSANNE DUNN MD Ot Z91.040 LATEX ALLERGY STATUS 10/12/2019 ROSNANE DUNN MD Ot Z98 .1 ARTHRODESIS STATUS 10/12/2019 ROSANNE DUNN MD, Ot Z98.51 TUBAL LIGATION STATUS 10/14/2019 KURT TREJO MD Ot E78.00 PURE HYPERCHOLESTEROLEMIA, UNSPECIFIED 10/14/2019 KURT TREJO MD Ot F17.210 NICOTINE DEPENDENCE, CIGARETTES, UNCOMPL 10/14/2019 KURT TREJO MD Ot I10 ESSENTIAL (PRIMARY) HYPERTENSION 10/14/2019 KURT TREJO MD Ot I25.2 OLD MYOCARDIAL INFARCTION 10/14/2019 KURT TREJO MD Ot I48.91 UNSPECIFIED ATRIAL FIBRILLATION 10/14/2019 KURT TREJO MD Ot K21.9 GASTRO-ESOPHAGEAL REFLUX DISEASE WITHOUT 10/14/2019 KURT TREJO MD Ot R07.89 OTHER CHEST PAIN 10/14/2019 KURT TREJO MD Ot R07.9 CHEST PAIN, UNSPECIFIED 10/14/2019 KURT TREJO MD Ot Z88.5 ALLERGY STATUS TO NARCOTIC AGENT STATUS 10/14/2019 KURT TREJO MD Ot Z88.6 ALLERGY STATUS TO ANALGESIC AGENT STATUS 10/14/2019 KURT TREJO MD Ot Z90.710 ACQUIRED ABSENCE OF BOTH CERVIX AND UTER 10/14/2019 KURT TREJO MD Ot Z91.040 LATEX ALLERGY STATUS 10/14/2019 KURT TREJO MD Ot Z95.810 PRESENCE OF AUTOMATIC (IMPLANTABLE) CARD 10/14/2019 KURT TREJO MD Ot Z95.9 PRESENCE OF CARDIAC AND VASCULAR IMPLANT 10/14/2019 KURT TREJO MD Ot Z98.51 TUBAL LIGATION STATUS 10/15/2019 NEHA ROSE MD Ot E78. 00 PURE HYPERCHOLESTEROLEMIA, UNSPECIFIED 10/15/2019 NEHA ROSE MD Ot I10 ESSENTIAL (PRIMARY) HYPERTENSION 10/15/2019 NEHA ROSE MD Ot I25. 2 OLD MYOCARDIAL INFARCTION 10/15/2019 NEHA ROSE MD Ot I48. 91 UNSPECIFIED ATRIAL FIBRILLATION 10/15/2019 NEHA ROSE MD Ot K21. 9 GASTRO-ESOPHAGEAL REFLUX DISEASE WITHOUT 10/15/2019 NEHA ROSE MD Ot T23.061D BURN OF UNSP DEGREE OF BACK OF RIGHT RYAN 10/15/2019 NEHA ROSE MD Ot T31. 0 CARRIZALES INVOLVING LESS THAN 10% OF BODY HEARD 10/15/2019 NEHA ROSE MD Ot X58.XXXD EXPOSURE TO OTHER SPECIFIED FACTORS, SUB 10/15/2019 NEHA ROSE MD Ot Z77. 22 CNTCT W AND EXPSR TO ENVIRON TOBACCO SMO 10/15/2019 NEHA ROSE MD Ot Z88. 5 ALLERGY STATUS TO NARCOTIC AGENT STATUS 10/15/2019 NEHA ROSE MD Ot Z88. 6 ALLERGY STATUS TO ANALGESIC AGENT STATUS 10/15/2019 NEHA ROSE MD Ot Z90.710 ACQUIRED ABSENCE OF BOTH CERVIX AND UTER 10/15/2019 NEHA ROSE MD Ot Z91.040 LATEX ALLERGY STATUS 10/15/2019 NEHA ROSE MD Ot Z95.810 PRESENCE OF AUTOMATIC (IMPLANTABLE) CARD 10/15/2019 NEHA ROSE MD Ot Z98. 51 TUBAL LIGATION STATUS 10/20/2019 JEAN PAUL LIRIANO MD Ot E78.00 PURE HYPERCHOLESTEROLEMIA, UNSPECIFIED 10/20/2019 JEAN PAUL LIRIANO MD Ot I1 0 ESSENTIAL (PRIMARY) HYPERTENSION 10/20/2019 JEAN PAUL LIRIANO MD Ot I25.2 OLD MYOCARDIAL INFARCTION 10/20/2019 JEAN PAUL LIRIANO MD Ot I48.91 UNSPECIFIED ATRIAL FIBRILLATION 10/20/2019 JEAN PAUL LIRIANO MD Ot K21.9 GASTRO-ESOPHAGEAL REFLUX DISEASE WITHOUT 10/20/2019 JEAN PAUL LIRIANO MD Ot R07.9 CHEST PAIN, UNSPECIFIED 10/20/2019 JEAN PAUL LIRIANO MD, Ot R20.2 PARESTHESIA OF SKIN 10/20/2019 JEAN PAUL LIRIANO MD Ot Z77.22 CNTCT W AND EXPSR TO ENVIRON TOBACCO SMO 10/20/2019 JEAN PAUL LIRIANO MD Ot Z82.49 FAMILY HX OF ISCHEM HEART DIS AND OTH DI 10/20/2019 JEAN PAUL LIRIANO MD Ot Z88.5 ALLERGY STATUS TO NARCOTIC AGENT STATUS 10/20/2019 JEAN PAUL LIRIANO MD Ot Z88.6 ALLERGY STATUS TO ANALGESIC AGENT STATUS 10/20/2019 JEAN PAUL LIRIANO MD Ot Z90.710 ACQUIRED ABSENCE OF BOTH CERVIX AND UTER 10/20/2019 JEAN PAUL LIRIANO MD Ot Z91.040 LATEX ALLERGY STATUS 10/20/2019 JEAN PAUL LIRIANO MD Ot Z95.810 PRESENCE OF AUTOMATIC (IMPLANTABLE) CARD 10/20/2019 JEAN PAUL LIRIANO MD Ot Z98.51 TUBAL LIGATION STATUS 10/24/2019 ROSANNE DUNN MD Ot E78 .5 HYPERLIPIDEMIA, UNSPECIFIED 10/24/2019 ROSANNE DUNN MD Ot E87 .6 HYPOKALEMIA 10/24/2019 ROSANNE DUNN MD Ot F17.200 NICOTINE DEPENDENCE, UNSPECIFIED, UNCOMP 10/24/2019 ROSANNE DUNN MD Ot G89.29 OTHER CHRONIC PAIN 10/24/2019 ROSANNE DUNN MD Ot I10 ESSENTIAL (PRIMARY) HYPERTENSION 10/24/2019 ROSANNE DUNN MD Ot I25 .2 OLD MYOCARDIAL INFARCTION 10/24/2019 ROSANNE DUNN MD Ot I48.91 UNSPECIFIED ATRIAL FIBRILLATION 10/24/2019 ROSANNE DUNN MD Ot K21 .9 GASTRO-ESOPHAGEAL REFLUX DISEASE WITHOUT 10/24/2019 ROSANNE DUNN MD Ot M54 .9 DORSALGIA, UNSPECIFIED 10/24/2019 ROSANNE DUNN MD Ot R07 .9 CHEST PAIN, UNSPECIFIED 10/24/2019 ROSANNE DUNN MD Ot T82.198A [facility] COMPL OF OTHER CARDIAC ELECTRONIC D 10/24/2019 ROSANNE DUNN MD Ot Z79.899 OTHER RETIREMENT (CURRENT) DRUG THERAPY 10/24/2019 ROSANNE DUNN MD Ot Z82.49 FAMILY HX OF ISCHEM HEART DIS AND OTH DI 10/24/2019 ROSANNE DUNN MD Ot Z88 .5 ALLERGY STATUS TO NARCOTIC AGENT STATUS 10/24/2019 ROSANNE DUNN MD Ot Z88 .6 ALLERGY STATUS TO ANALGESIC AGENT STATUS 10/24/2019 ROSANNE DUNN MD Ot Z90.49 ACQUIRED ABSENCE OF OTHER SPECIFIED PART 10/24/2019 ROSANNE DUNN MD Ot Z90.710 ACQUIRED ABSENCE OF BOTH CERVIX AND UTER 10/24/2019 ROSANNE DUNN MD Ot Z91.040 LATEX ALLERGY STATUS 10/24/2019 ROSANNE DUNN MD Ot Z98 .1 ARTHRODESIS STATUS 10/24/2019 ROSANNE DUNN MD Ot Z98.51 TUBAL LIGATION STATUS 10/28/2019 JEAN PAUL LIRIANO MD Ot E78.00 PURE HYPERCHOLESTEROLEMIA, UNSPECIFIED 10/28/2019 JEAN PAUL LIRIANO MD Ot I1 0 ESSENTIAL (PRIMARY) HYPERTENSION 10/28/2019 JEAN PAUL LIRIANO MD, Ot I25.2 OLD MYOCARDIAL INFARCTION 10/28/2019 JEAN PAUL LIRIANO MD Ot I48.91 UNSPECIFIED ATRIAL FIBRILLATION 10/28/2019 JEAN PAUL LIRIANO MD Ot K21.9 GASTRO-ESOPHAGEAL REFLUX DISEASE WITHOUT 10/28/2019 JEAN PAUL LIRIANO MD Ot R07.9 CHEST PAIN, UNSPECIFIED 10/28/2019 JEAN PAUL LIRIANO MD Ot R20.2 PARESTHESIA OF SKIN 10/28/2019 JEAN PAUL LIRIANO MD Ot Z77.22 CNTCT W AND EXPSR TO ENVIRON TOBACCO SMO 10/28/2019 JEAN PAUL LIRIANO MD Ot Z82.49 FAMILY HX OF ISCHEM HEART DIS AND OTH DI 10/28/2019 JEAN PAUL LIRIANO MD Ot Z88.5 ALLERGY STATUS TO NARCOTIC AGENT STATUS 10/28/2019 JEAN PAUL LIRIANO MD Ot Z88.6 ALLERGY STATUS TO ANALGESIC AGENT STATUS 10/28/2019 JEAN PAUL LIRIANO MD Ot Z90.710 ACQUIRED ABSENCE OF BOTH CERVIX AND UTER 10/28/2019 JEAN PAUL LIRIANO MD Ot Z91.040 LATEX ALLERGY STATUS 10/28/2019 JEAN PAUL LIRIANO MD Ot Z95.810 PRESENCE OF AUTOMATIC (IMPLANTABLE) CARD 10/28/2019 JEAN PAUL LIRIANO MD Ot Z98.51 TUBAL LIGATION STATUS 11/03/2019 LAMIN ADLER MD Ot E78.0 0 PURE HYPERCHOLESTEROLEMIA, UNSPECIFIED 11/03/2019 LAMIN ADLER MD Ot F17.2 10 NICOTINE DEPENDENCE, CIGARETTES, UNCOMPL 11/03/2019 LAMIN ADLER MD, Ot I10 ESSENTIAL (PRIMARY) HYPERTENSION 11/03/2019 LAMIN ADLER MD, Ot I25.2 OLD MYOCARDIAL INFARCTION 11/03/2019 LAMIN ADLER MD Ot I48.9 1 UNSPECIFIED ATRIAL FIBRILLATION 11/03/2019 LAMIN ADLER MD, Ot J06.9 ACUTE UPPER RESPIRATORY INFECTION, UNSPE 11/03/2019 LAMIN ADLER MD, Ot K21.9 GASTRO-ESOPHAGEAL REFLUX DISEASE WITHOUT 11/03/2019 LAMIN ADLER MD Ot R05 COUGH 11/03/2019 LAMIN ADLER MD, Ot S29.011A STRAIN OF MUSCLE AND TENDON OF FRONT WAL 11/03/2019 LAMIN ADLER MD, Ot X58.XXXA EXPOSURE TO OTHER SPECIFIED FACTORS, INI 11/03/2019 LAMIN ADLER MD, Ot Z82.4 9 FAMILY HX OF ISCHEM HEART DIS AND OTH DI 11/03/2019 LAMIN ADLER MD, Ot Z88.5 ALLERGY STATUS TO NARCOTIC AGENT STATUS 11/03/2019 LAMIN ADLER MD, Ot Z88.6 ALLERGY STATUS TO ANALGESIC AGENT STATUS 11/03/2019 LAMIN ADLER MD Ot Z91.0 40 LATEX ALLERGY STATUS 11/03/2019 LAMIN ADLER MD Ot Z95.8 10 PRESENCE OF AUTOMATIC (IMPLANTABLE) CARD 11/03/2019 LAMIN ADLER MD Ot Z98.5 1 TUBAL LIGATION STATUS 11/06/2019 LAMIN ADLER MD Ot E78.0 0 PURE HYPERCHOLESTEROLEMIA, UNSPECIFIED 11/06/2019 LAMIN ADLER MD, Ot F17.2 10 NICOTINE DEPENDENCE, CIGARETTES, UNCOMPL 11/06/2019 LAMIN ADLER MD, Ot I10 ESSENTIAL (PRIMARY) HYPERTENSION 11/06/2019 LAMIN ADLER MD, Ot I25.2 OLD MYOCARDIAL INFARCTION 11/06/2019 LAMIN ADLER MD, Ot I48.9 1 UNSPECIFIED ATRIAL FIBRILLATION 11/06/2019 LAMIN ADLER MD, Ot J06.9 ACUTE UPPER RESPIRATORY INFECTION, UNSPE 11/06/2019 LAMIN ADLER MD, Ot K21.9 GASTRO-ESOPHAGEAL REFLUX DISEASE WITHOUT 11/06/2019 LAMIN ADLER MD, Ot R05 COUGH 11/06/2019 LAMIN ADLER MD, Ot S29.011A STRAIN OF MUSCLE AND TENDON OF FRONT WAL 11/06/2019 LAMIN ADLER MD, Ot X58.XXXA EXPOSURE TO OTHER SPECIFIED FACTORS, INI 11/06/2019 LAMIN ADLER MD, Ot Z82.4 9 FAMILY HX OF ISCHEM HEART DIS AND OTH DI 11/06/2019 LAMIN ADLER MD, Ot Z88.5 ALLERGY STATUS TO NARCOTIC AGENT STATUS 11/06/2019 LAMIN ADLER MD, Ot Z88.6 ALLERGY STATUS TO ANALGESIC AGENT STATUS 11/06/2019 LAMIN ADLER MD, Ot Z91.0 40 LATEX ALLERGY STATUS 11/06/2019 LAMIN ADLER MD, Ot Z95.8 10 PRESENCE OF AUTOMATIC (IMPLANTABLE) CARD 11/06/2019 LAMIN ADLER MD, Ot Z98.5 1 TUBAL LIGATION STATUS Procedures There is no [...] 03/03/19 12:05 NRG QUANTITY OF GROWTH Many NR Bacterial sputum culture [id number] NRG Complete blood count (CBC) with automate [...] poor plasma by coag ulation assay - 12/27/19 03:11 Prothrombin time (PT) in platelet poor [...] i.cardiac measurement (mass/v olume) < ng/mL <0.028 Comprehensive metabolic panel - 10/12/19 03:50 Serum or plasma sodium measurement (moles/volume) 139 mmol/L 135-145 Serum or plasma potassium measurement (moles/volume) 3.8 mmol/L 3.6-5.0 Serum or plasma chloride measurement (moles/volume) 106 mmol/L 98-107 Carbon dioxide 22 mmol/L 21-32 Serum or plasma anion gap determination (moles/volume) 11 mmol/L 5-14 Serum or plasma urea nitrogen measurement (mass/volume ) 16 mg/dL 7-18 Serum or plasma creatinine measurement (mass/volume) 0.81 mg/dL 0.60-1.30 Serum or plasma urea nitrogen/creatinine mass ratio 20 NRG Serum or plasma creatinine measurement w ith calculation of estimated glomerular filtration rate > NRG Serum or plasma glucose measurement (mass/volume) 99 mg/dL 70-105 Serum or plasma calcium measurement (mass/volume) 8.5 mg/dL 8.5-10.1 Serum or plasma total bilirubin measurement (mass/volu me) 0.2 mg/dL 0.1-1.0 Serum or plasma alkaline phosphatase eugene surement (enzymatic activity/volume) 94 U/L 40-136 Serum or plasma aspartate aminotransfera se measurement (enzymatic activity/volume) 8 U/L 5-34 Serum or plasma alanine aminotransferase measurement (enzymatic activity/volume) 11 U/L 0-55 Serum or plasma protein measurement (mass/volume) 6.0 g/dL 6.4-8.2 Serum or plasma albumin measurement (mass/volume) 3.7 g/dL 3.2-4.5 CALCIUM CORRECTED 8.7 mg/dL 8.5-10.1 Automated blood complete blood count (he mogram) panel - 10/12/19 03:50 Blood leukocytes automated count (number/volume) 6.9 10*3/uL 4.3-11.0 Blood erythrocytes automated count (number/volume) 3.91 10*6/uL 4.35-5.85 Venous blood hemoglobin measurement (mass/volume) 12.1 g/dL 11.5-16.0 Blood hematocrit (volume fraction) 37 % 35-52 Automated erythrocyte mean corpuscular volume 93 [ foz_us] 80-99 Automated erythrocyte mean corpuscular h emoglobin (mass per erythrocyte) 31 pg 25-34 Automated erythrocyte mean corpuscular h emoglobin concentration measurement (mass/volume) 33 g/dL 32-36 Automated erythrocyte distribution width ratio 13. 6 % 10.0- 14.5 Automated blood platelet count (count/volume) 202 10*3/uL 130-400 Automated blood platelet mean volume measurement 10.0 [foz_us] 7.4-10.4 Serum or plasma lithium measurement (mol es/volume) - 10/12/19 03:50 BNP PT 10.8 pg/mL <100.0 Complete blood count (CBC) with automate d white blood cell (WBC) differential - 10/20/19 21:50 Blood leukocytes automated count (number/volume) 8.3 10*3/uL 4.3-11.0 Blood erythrocytes automated count (number/volume) 4.96 10*6/uL 4.35-5.85 Venous blood hemoglobin measurement (mass/volume) 15.2 g/dL 11.5-16.0 Blood hematocrit (volume fraction) 44 % 35-52 Automated erythrocyte mean corpuscular volume 90 [ foz_us] 80-99 Automated erythrocyte mean corpuscular h emoglobin (mass per erythrocyte) 31 pg 25-34 Automated erythrocyte mean corpuscular h emoglobin concentration measurement (mass/volume) 34 g/dL 32-36 Automated erythrocyte distribution width ratio 13. 7 % 10.0- 14.5 Automated blood platelet count (count/volume) 353 10*3/uL 130-400 Automated blood platelet mean volume measurement 9.4 [foz_us] 7.4-10.4 Automated blood neutrophils/100 leukocytes 63 % 42-75 Automated blood lymphocytes/100 leukocytes 30 % 12-44 Blood monocytes/100 leukocytes 5 % 0-12 Automated blood eosinophils/100 leukocytes 1 % 0-10 Automated blood basophils/100 leukocytes 0 % 0-10 Blood neutrophils automated count (number/volume) 5.3 10*3 1.8-7.8 Blood lymphocytes automated count (number/volume) 2.5 10*3 1.0-4.0 Blood monocytes automated count (number/volume) 0. 4 10*3 0.0-1.0 Automated eosinophil count 0.1 10*3/uL 0 .0-0.3 Automated blood basophil count (count/volume) 0.0 10*3/uL 0.0-0.1 Comprehensive metabolic panel - 10/20/19 21:50 Serum or plasma sodium measurement (moles/volume) 139 mmol/L 135-145 Serum or plasma potassium measurement (moles/volume) 3.2 mmol/L 3.6-5.0 Serum or plasma chloride measurement (moles/volume) 101 mmol/L 98-107 Carbon dioxide 19 mmol/L 21-32 Serum or plasma anion gap determination (moles/volume) 19 mmol/L 5-14 Serum or plasma urea nitrogen measurement (mass/volume ) 8 mg/dL 7-18 Serum or plasma creatinine measurement (mass/volume) 0.72 mg/dL 0.60-1.30 Serum or plasma urea nitrogen/creatinine mass ratio 11 NRG Serum or plasma creatinine measurement w ith calculation of estimated glomerular filtration rate > NRG Serum or plasma glucose measurement (mass/volume) 128 mg/dL 70-105 Serum or plasma calcium measurement (mass/volume) 9.5 mg/dL 8.5-10.1 Serum or plasma total bilirubin measurement (mass/volu me) 0.2 mg/dL 0.1-1.0 Serum or plasma alkaline phosphatase eugene surement (enzymatic activity/volume) 137 U/L 40-136 Serum or plasma aspartate aminotransfera se measurement (enzymatic activity/volume) 16 U/L 5-34 Serum or plasma alanine aminotransferase measurement (enzymatic activity/volume) 21 U/L 0-55 Serum or plasma protein measurement (mass/volume) 8.2 g/dL 6.4-8.2 Serum or plasma albumin measurement (mass/volume) 4.9 g/dL 3.2-4.5 TROPONIN I FS - 10/20/19 21:50 TROPONIN I FS < 0.30 <0.30 Fibrin D-dimer FEU measurement in platel et poor plasma (mass/volume) - 10/20/19 21:50 Fibrin D-dimer FEU measurement in platelet poor plasma (mass/volume) 0.40 ug/mL 0.00-0.49 Influenza virus A and B antigen detectio n - 11/03/19 18:10 FLU RESULT NEGATIVE FOR INFLUENZA A AND B ANTIGENS BY IA NRG Blood CBC with ordered manual differenti al panel - 11/17/19 20:52 Blood leukocytes automated count (number/volume) 6.2 10*3/uL 4.3-11.0 Blood erythrocytes automated count (number/volume) 4.55 10*6/uL 4.35-5.85 Venous blood hemoglobin measurement (mass/volume) 14.0 g/dL 11.5-16.0 Blood hematocrit (volume fraction) 41 % 35-52 Automated erythrocyte mean corpuscular volume 91 [ foz_us] 80-99 Automated erythrocyte mean corpuscular h emoglobin (mass per erythrocyte) 31 pg 25-34 Automated erythrocyte mean corpuscular h emoglobin concentration measurement (mass/volume) 34 g/dL 32-36 Automated erythrocyte distribution width ratio 13. 6 % 10.0- 14.5 Automated blood platelet count (count/volume) 290 10*3/uL 130-400 Automated blood platelet mean volume measurement 9.6 [foz_us] 7.4-10.4 Automated blood neutrophils/100 leukocytes 70 % 42-75 Automated blood lymphocytes/100 leukocytes 22 % 12-44 Blood monocytes/100 leukocytes 4 % NRG Automated blood eosinophils/100 leukocytes 1 % 0-10 Automated blood basophils/100 leukocytes 0 % 0-10 Blood neutrophils automated count (number/volume) 4.4 10*3 1.8-7.8 Blood lymphocytes automated count (number/volume) 1.4 10*3 1.0-4.0 Blood monocytes automated count (number/volume) 0. 4 10*3 0.0-1.0 Automated eosinophil count 0.1 10*3/uL 0 .0-0.3 Automated blood basophil count (count/volume) 0.0 10*3/uL 0.0-0.1 Manual blood segmented neutrophils/100 leukocytes 75 % NR Manual blood lymphocytes/100 leukocytes 15 % NRG Blood lymphocytes variant/100 leukocytes 6 % NR Blood microcytes detection by light microscopy [facility] Influenza virus A and B antigen detectio n - 11/17/19 20:52 FLU RESULT NEGATIVE FOR INFLUENZA A AND B ANTIGENS BY IA [facility] Comprehensive metabolic panel - 11/17/19 20:52 Serum or plasma sodium measurement (moles/volume) 141 mmol/L 135-145 Serum or plasma potassium measurement (moles/volume) 2.9 mmol/L 3.6-5.0 Serum or plasma chloride measurement (moles/volume) 102 mmol/L 98-107 Carbon dioxide 25 mmol/L 21-32 Serum or plasma anion gap determination (moles/volume) 14 mmol/L 5-14 Serum or plasma urea nitrogen measurement (mass/volume ) 7 mg/dL 7-18 Serum or plasma creatinine measurement (mass/volume) 0.60 mg/dL 0.60-1.30 Serum or plasma urea nitrogen/creatinine mass ratio 12 NRG Serum or plasma creatinine measurement w ith calculation of estimated glomerular filtration rate > NRG Serum or plasma glucose measurement (mass/volume) 103 mg/dL 70-105 Serum or plasma calcium measurement (mass/volume) 9.2 mg/dL 8.5-10.1 Serum or plasma total bilirubin measurement (mass/volu me) 0.3 mg/dL 0.1-1.0 Serum or plasma alkaline phosphatase eugene surement (enzymatic activity/volume) 137 U/L 40-136 Serum or plasma aspartate aminotransfera se measurement (enzymatic activity/volume) 9 U/L 5-34 Serum or plasma alanine aminotransferase measurement (enzymatic activity/volume) 10 U/L 0-55 Serum or plasma protein measurement (mass/volume) 7.1 g/dL 6.4-8.2 Serum or plasma albumin measurement (mass/volume) 4.2 g/dL 3.2-4.5 CALCIUM CORRECTED 9.0 mg/dL 8.5-10.1 TROPONIN I FS - 11/17/19 20:52 TROPONIN I FS < 0.30 <0.30 Magnesium - 11/17/19 21:28 Magnesium 1.8 mg/dL 1.6-2.4 Whole blood basic metabolic panel - 01/02 08:40 Serum or plasma sodium measurement (moles/volume) 143 mmol/L 135-145 Serum or plasma potassium measurement (moles/volume) 3.0 mmol/L 3.6-5.0 Serum or plasma chloride measurement (moles/volume) 107 mmol/L 98-107 Carbon dioxide 24 mmol/L 21-32 [...] NRG Serum or plasma glucose measurement (mass/volume) 194 mg/dL 70-105 Serum or plasma calcium measurement (mass/volume) 8.6 mg/dL 8.5-10.1 Magnesium - 11/18/19 08:40 Magnesium 1.7 mg/dL 1.6-2.4 Encounters ACCT No. Visit Date/Time Discharge Status Pt. Type Provider Facility Loc./Unit Complaint [id number] 07/09/2019 13:00:00 07/09/2019 23:59:5 9 [facility] Outpatient RICHARD HERMAN [facility] [id number] 07/09/2019 13:00:00 Document Registration [id number] 01/08/2019 11:40:00 Document Registration [id number] 11/17/2019 21:54:00 020 16:50:00 DIS Inpatient SINCERE LILLY MD Via [facility] ICU PACEMAKER WENT OFF [id number] 11/03/2019 17:44:00 19:06:00 DIS Emergency LAMIN ADLER MD Via [facility] ER FS VOMITING,COUGH,SOB [id number] 10/20/2019 21:45:00 23:32:00 DIS Emergency JEAN PAUL LIRIANO MD Via [facility] ER FS CHEST PAIN/RIGHT ARM PA IN [id number] 10/11/2019 06:00:00 11:49:00 DIS Inpatient SHAUN DUNCAN, ROSANNE Caicedo Via [facility] CSD CHEST PAIN,NEAR SYNCOPE,DEFRIBRILLATOR FIRING [id number] 10/10/2019 15:11:00 16:00:00 DIS Emergency MILTON DUNCAN, NEHA Mejia [facility] ER FS RT HAND WOUND CHECK [id number] 10/08/2019 18:38:00 20:25:00 DIS Emergency LAMIN ADLER MD [facility] ER FS R HAND BURN [id number] 10/08/2019 02:03:00 03:37:00 DIS Emergency KURT TREJO MD [facility] ER FS HYPENTENSION [id number] 10/07/2019 15:09:00 16:45:00 DIS Emergency KURT TREJO MD [facility] ER FS CHEST PAIN/SOA [id number] 10/05/2019 21:02:00 22:28:00 DIS Emergency JEAN PAUL LIRIANO MD [facility] ER FS CHEST PAIN/SOB [id number] 10/03/2019 20:20:00 22:28:00 DIS Emergency RYANCLAUDIA SHARP DO Via [facility] ER FS CHEST PAIN [id number] 09/16/2019 16:26:00 18:14:00 DIS Emergency ROVENCHEVY BECKER DO Via [facility] ER FS PACE MAKER ISSU E [id number] 09/11/2019 19:21:00 21:55:00 DIS Emergency CRAIG KHANNA MD [facility] ER FS IRR HEART RATE [id number] 09/08/2019 17:50:00 18:56:00 DIS Emergency XIOMARA DUNCAN, MCKENNA Gonzalez [facility] ER FS BACK PAIN [id number] 09/06/2019 11:14:00 14:16:00 DIS Outpatient ALEXANDRE MATA MD [facility] ENDO ESOPHAGEAL MASS PER CT/ COUGH [id number] 09/02/2019 05:47:00 23:59:59 CLS Outpatient ALEXANDRE MATA MD [facility] PREOP EGD [id number] 08/13/2019 23:45:00 18:08:00 DIS Inpatient CHRIS DUNCAN, MARIAJOSE Gimenez Via [facility] 4TH ACS1 ELEV TROPONIN, TASHI ST PAIN [id number] 08/07/2019 09:44:00 23:59:59 CLS Preadmit OTHER, UNLISTED [facility] RAD LUMBAR RADICULOPATHY [id number] 07/29/2019 19:22:00 20:38:00 DIS Emergency JEY DUNCAN, CRAIG Ozuna [facility] ER FS SOB,COUGH,CHEST TIGHTNE SS [id number] 07/20/2019 21:47:00 00:08:00 DIS Emergency LAMIN ADLER MD [facility] ER FS CHEST PAIN; SOB [id number] 07/18/2019 20:40:00 00:41:00 DIS Emergency LAMIN ADLER MD [facility] ER FS CHEST PAIN,SOB [id number] 07/16/2019 09:35:00 12:39:00 DIS Emergency ARISTEO COYNE DO Via [facility] ER FS HIGH BP [id number] 04/21/2019 16:10:00 19:15:00 DIS Emergency NEHA ROSE MD [facility] ER FS CHEST PAIN [id number] 03/07/2019 18:40:00 05/23/2 019 20:00:00 DIS Emergency DORETHA TALBERTARISTEO Via [facility] ER FS PAIN [id number] 03/04/2019 21:34:00 04:07:00 DIS Emergency CHARLOTTE GUTHRIE DO Via [facility] ER FS CHEST PAIN AROUND PACE MAKER [id number] 02/27/2019 19:29:00 23:32:00 DIS Emergency LAMIN ADLER MD [facility] ER FS COUGH,DIZZY, CHEST PAIN , NAUSEA, RT EAR PAIN [id number] 01/10/2019 15:48:00 20:13:00 DIS Outpatient CHARLOTTE GUTHRIE DO Via [facility] ER FS CHEST PAIN, RT ARM NUMB [id number] 12/15/2018 13:56:00 13:56:00 CAN Preadmit NAYELY DUNCAN, LAMIN martell [facility] ER FS RT/LT HAND NUMBNESS
--- OUTSIDE RECORDS SUMMARY | 2019-11-23 07:25 | XMS REPORT | Continuity of Care Document ---
Author Organization Unknown Address Unknown Phone Unavailable Allergies Active Description Code Type Severity Reaction Onset Reported/Identified Relationship to Patient Clinical Status Yes aspirin [id number] Drug Allergy Unknown N/A 03/07/2019 Yes morphine [id number] Drug Allergy Unknown N/A 04/21/2019 Yes morphine [id number] Drug Allergy Unknown Pt has received 09/06/2019 Yes latex [id number] Drug Allergy Unknown N/A 09/16/2019 Medications There [...] 03/05/2019 CAROLANN GUTHRIE DOED T Ot T82.198A [facility] COMPL OF OTHER CARDIAC ELECTRONIC D [...] 89 OTHER CHEST PAIN 03/06/2019 JERRI TALBERT, CAHRLOTTE T Ot R07. 9 CHEST PAIN, UNSPECIFIED 03/06/2019 JERRI TALBERT, CHARLOTTE T Ot T82.198A [facility] COMPL OF OTHER CARDIAC ELECTRONIC D [...] ARISTEO Ot I25.10 ATHSCL HEART DISEASE OF [place] CORONARY 03/07/2019 COYNE DO, ARISTEO Ot R10.31 [...] 03/10/2019 JERRI TALBERT, CHARLOTTE T Ot T82.198A [facility] COMPL OF OTHER CARDIAC ELECTRONIC D [...] ARISTEO Ot I25.10 ATHSCL HEART DISEASE OF [place] CORONARY 03/12/2019 COYNE DO, ARISTEO Ot R10.31 [...] Ot I25. 10 ATHSCL HEART DISEASE OF [place] CORONARY 04/21/2019 NEHA ROSE MD Ot R07. [...] Ot I25. 10 ATHSCL HEART DISEASE OF [place] CORONARY 04/27/2019 NEHA ROSE MD Ot R07. [...] W AND [place]PSR [place] [facility] [place] WIN[place] DO, ARISTEO Ot Z88.5 ALLERGY STATUS TO NARCOTIC AGENT STATUS 07/16/2019 COYNE DO, ARISTEO Ot Z88.6 ALLERGY STATUS TO ANALGESIC AGENT STATUS 07/16/2019 COYNE DO, ARISTEO Ot Z90.710 ACQUIRED ABSENCE OF BOTH CERVIX AND UTER 07/16/2019 WINIFREDE DO, ARISTEO Ot Z95.810 PRESENCE OF AUTOMATIC (IMPLANTABLE) CARD 07/16/2019 WINIFREDE DO, ARISTEO Ot Z98.51 TUBAL LIGATION STATUS 07/18/2019 WINIFREDE DO, ARISTEO Ot I10 ESSENTIAL (PRIMARY) HYPERTENSION 07/18/2019 WINIFREDE DO, ARISTEO Ot I25.2 OLD MYOCARDIAL INFARCTION 07/18/2019 WINIFREDE DO, ARISTEO Ot R03.0 ELEVATED BLOOD-PRESSURE READING, W/O GHADA 07/18/2019 WINIFREDE DO, ARISTEO Ot R07.9 CHEST PAIN, UNSPECIFIED 07/18/2019 WINIFREDE DO, ARISTEO Ot Z77.22 CNTCT W AND EXPSR TO ENV[place]ACCO [facility] [place]/18/2019 WINIFREDE DO, ARISTEO Ot Z88.5 ALLERGY STATUS TO NARCOTIC AGENT STATUS 07/18/2019 WINIFREDE DO, ARISTEO Ot Z88.6 ALLERGY STATUS TO ANALGESIC AGENT STATUS 07/18/2019 WINIFREDE DO, ARISTEO Ot Z90.710 ACQUIRED ABSENCE OF BOTH CERVIX AND UTER 07/18/2019 WINIFREDE DO, ARISTEO Ot Z95.810 PRESENCE OF AUTOMATIC [...] Ot R07.9 CHEST PAIN, UNSPECIFIED 07/28/2019 LAMIN DALER MD Ot Z77.2 2 CNTCT W AND [...] EXPSR TO ENVIRON TOBACCO SMO 08/02/2019 CRAIG KHANAN MD A Ot Z88. 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 COMPL OF CARDIAC PULSE GENERATOR (B [...] 09/13/2019 CRAIG KHANNA MD A Ot T82.191A [facility] COMPL OF CARDIAC PULSE GENERATOR (B [...] MD, Ot I25.10 ATHSCL HEART DISEASE OF [place] CORONARY 09/16/2019 ALEXANDRE MATA MD, Ot I25.2 OLD MYOCARDIAL INFARCTION 09/16/2019 ALEXANDRE MATA MD, Ot J44.9 CHRONIC OBSTRUCTIVE PULMONARY DISEASE, U 09/16/2019 ALEXANDRE MATA MD, Ot K21.0 GASTRO-ESOPHAGEAL REFLUX DISEASE WITH ES 09/16/2019 ALEXANDRE MATA MD, Ot K29.50 UNSPECIFIED CHRONIC GASTRITIS WITHOUT BL 09/16/2019 LAEXANDRE MATA MD, Ot K29.80 DUODENITIS WITHOUT BLEEDING 09/16/2019 ALEXANDRE MATA MD, Ot K31.89 OTHER DISEASES OF STOMACH AND DUODENUM 09/16/2019 ALEXANDRE MATA MD, Ot K44.9 DIAPHRAGMATIC HERNIA WITHOUT OBSTRUCTION 09/16/2019 ALEXANDRE MATA MD, Ot M54.9 DORSALGIA, UNSPECIFIED 09/16/2019 ALEXANDRE MATA MD, Ot Z79.89 9 OTHER MCC (CURRENT) DRUG THERAPY 09/16/2019 ALEXANDRE MATA MD, [...] 09/16/2019 ROVENSTINE DO, CHEVY L Ot T82.191A [facility] COMPL OF CARDIAC PULSE GENERATOR (B [...] WITHOUT 09/19/2019 CRAIG KHANNA MD Ot T82.191A [facility] COMPL OF CARDIAC PULSE GENERATOR (B [...] 09/21/2019 ROVENSTINE DO, CHEVY L Ot T82.191A [facility] COMPL OF CARDIAC PULSE GENERATOR (B [...] STATUS TO NARCOTIC AGENT STATUS 10/08/2019 LAMIN ALDER MD Ot Z88.6 ALLERGY STATUS TO ANALGESIC [...] OF BODY HEARD 10/10/2019 MILTON DUNCAN, NEHA eMjia Ot X58.XXXD EXPOSURE TO OTHER SPECIFIED FACTORS, [...] UNSPECIFIED 10/12/2019 ROSANNE DUNN MD Ot T82.198A [facility] COMPL OF OTHER CARDIAC ELECTRONIC D 10/12/2019 ROSANNE DUNN MD, Ot Z79.899 OTHER TECHNICIAN (CURRENT) DRUG THERAPY 10/12/2019 ROSANNE DUNN MD [...] UNSPECIFIED 10/12/2019 ROSANNE DUNN MD Ot T82.198A [facility] COMPL OF OTHER CARDIAC ELECTRONIC D 10/12/2019 ROSANNE DUNN MD Ot Z79.899 OTHER [facility] (CURRENT) DRUG THERAPY 10/12/2019 ROSANNE DUNN MD [...] MD Ot I48.91 UNSPECIFIED ATRIAL FIBRILLATION 10/20/2019 JAEN PAUL LIRIANO MD Ot K21.9 GASTRO-ESOPHAGEAL REFLUX [...] UNSPECIFIED 10/24/2019 ROSANNE DUNN MD Ot T82.198A [facility] COMPL OF OTHER CARDIAC ELECTRONIC D 10/24/2019 ROSANNE DUNN MD Ot Z79.899 OTHER MCC (CURRENT) DRUG THERAPY 10/24/2019 ROSANNE DUNN MD [...] MD Ot Z98 .1 ARTHRODESIS STATUS 10/24/2019 ROASNNE DUNN MD Ot Z98.51 TUBAL LIGATION STATUS [...] OF GROWTH Many NR Bacterial sputum culture [id number] NRG Complete blood count (CBC) with automate [...] NR Blood microcytes detection by light microscopy [facility] Influenza virus A and B antigen detectio n - 11/17/19 20:52 FLU RESULT NEGATIVE FOR INFLUENZA A AND B ANTIGENS BY IA [facility] Comprehensive metabolic panel - 11/17/19 20:52 [...] Status Pt. Type Provider Facility Loc./Unit Complaint [id number] 07/09/2019 13:00:00 07/09/2019 23:59:5 9 [facility] Outpatient RICHARD HERMAN [facility] [id number] 07/09/2019 13:00:00 Document Registration [id number] 01/08/2019 11:40:00 Document Registration [id number] 11/17/2019 21:54:00 020 16:50:00 DIS Inpatient SINCERE LILLY MD Via [facility] ICU PACEMAKER WENT OFF [id number] 11/03/2019 17:44:00 19:06:00 DIS Emergency LAMIN ADLER MD Via [facility] ER FS VOMITING,COUGH,SOB [id number] 10/20/2019 21:45:00 23:32:00 DIS Emergency JEAN PAUL LIRIANO MD Via [facility] ER FS CHEST PAIN/RIGHT ARM PA IN [id number] 10/11/2019 06:00:00 11:49:00 DIS Inpatient SHAUN DUNCAN, ROSANNE Caicedo [facility] CSD CHEST PAIN,NEAR SYNCOPE,DEFRIBRILLATOR FIRING [id number] 10/10/2019 15:11:00 16:00:00 DIS Emergency MILTON DUNCAN, NEHA Mejia [facility] ER FS RT HAND WOUND CHECK [id number] 10/08/2019 18:38:00 20:25:00 DIS Emergency LAMIN ADLER MD [facility] ER FS R HAND BURN [id number] 10/08/2019 02:03:00 03:37:00 DIS Emergency KURT TREJO MD [facility] ER FS HYPENTENSION [id number] 10/07/2019 15:09:00 16:45:00 DIS Emergency KURT TREJO MD [facility] ER FS CHEST PAIN/SOA [id number] 10/05/2019 21:02:00 22:28:00 DIS Emergency JEAN PAUL LIRIANO MD [facility] ER FS CHEST PAIN/SOB [id number] 10/03/2019 20:20:00 22:28:00 DIS Emergency RYANCLAUDIA SHARP DO [facility] ER FS CHEST PAIN [id number] 09/16/2019 16:26:00 18:14:00 DIS Emergency ROVENCHEVY BECKER DO Via [facility] ER FS PACE MAKER ISSU E [id number] 09/11/2019 19:21:00 21:55:00 DIS Emergency CRAIG KHANNA MD [facility] ER FS IRR HEART RATE [id number] 09/08/2019 17:50:00 18:56:00 DIS Emergency XIOMARA DUNCAN, MCKENNA Gonzalez [facility] ER FS BACK PAIN [id number] 09/06/2019 11:14:00 14:16:00 DIS Outpatient ALEXANDRE MATA MD [facility] ENDO ESOPHAGEAL MASS PER CT/ COUGH [id number] 09/02/2019 05:47:00 23:59:59 CLS Outpatient ALEXANDRE MATA MD [facility] PREOP EGD [id number] 08/13/2019 23:45:00 18:08:00 DIS Inpatient CHRIS DUNCAN, MARIAJOSE Gimenez [facility] 4TH ACS1 ELEV TROPONIN, TASHI ST PAIN [id number] 08/07/2019 09:44:00 23:59:59 CLS Preadmit OTHER, UNLISTED [facility] RAD LUMBAR RADICULOPATHY [id number] 07/29/2019 19:22:00 20:38:00 DIS Emergency JEY DUNCAN, CRAIG Ozuna [facility] ER FS SOB,COUGH,CHEST TIGHTNE SS [id number] 07/20/2019 21:47:00 00:08:00 DIS Emergency LAMIN ADLER MD [facility] ER FS CHEST PAIN; SOB [id number] 07/18/2019 20:40:00 00:41:00 DIS Emergency LAMIN ADLER MD [facility] ER FS CHEST PAIN,SOB [id number] 07/16/2019 09:35:00 12:39:00 DIS Emergency ARISTEO COYNE DO Via [facility] ER FS HIGH BP [id number] 04/21/2019 16:10:00 19:15:00 DIS Emergency NEHA ROSE MD [facility] ER FS CHEST PAIN [id number] 03/07/2019 18:40:00 05/23/2 019 20:00:00 DIS Emergency DORETHA TALBERTARISTEO Via [facility] ER FS PAIN [id number] 03/04/2019 21:34:00 04:07:00 DIS Emergency CHARLOTTE GUTHRIE DO Via [facility] ER FS CHEST PAIN AROUND PACE MAKER [id number] 02/27/2019 19:29:00 23:32:00 DIS Emergency LAMIN ADLER MD [facility] ER FS COUGH,DIZZY, CHEST PAIN , NAUSEA, RT EAR PAIN [id number] 01/10/2019 15:48:00 20:13:00 DIS Outpatient CHARLOTTE GUTHRIE DO Via [facility] ER FS CHEST PAIN, RT ARM NUMB [id number] 12/15/2018 13:56:00 13:56:00 CAN Preadmit NAYELY DUNCAN, LAMIN martell [facility] ER FS RT/LT HAND NUMBNESS
== END 2019-11-18 11:32 | disposition home or self-care (01) ==
LOC: EDUNIT# 20:06 → ER FS 20:09 → ICU 21:54 → UNDOADMIN 21:54 → ICU 23:43 → UNDODISIN 11-18 16:50
PROVIDERS: ADMIT Family Medicine; ATTEND Family Medicine
DX: I48.91 Unspecified atrial fibrillation (principal); I25.2 Old myocardial infarction; I10 Essential (primary) hypertension; K21.9 Gastro-esophageal reflux disease without esophagitis; G89.29 Other chronic pain; M54.9 Dorsalgia, unspecified; E87.6 Hypokalemia; E78.00 Pure hypercholesterolemia, unspecified; Z79.82 Long term (current) use of aspirin; Z91.040 Latex allergy status; Z88.5 Allergy status to narcotic agent; Z79.899 Other long term (current) drug therapy; Z90.710 Acquired absence of both cervix and uterus; Z98.51 Tubal ligation status; Z98.810 Dental sealant status; Z88.0 Allergy status to penicillin
CPT/HCPCS: 36415; 71045; 80048; 80053; 83735; 84484; 85007; 85027; 87804; 93005; 96374; 96375

== ENCOUNTER 2019-12-11 16:26 | Emergency (ER) | payer BC ==
[~2019-12-11] VITALS: Ht 170.1 cm; Wt 95.8 kg
[~2019-12-11 16:26] MED LIST changes: +ACET-2267 PO; -FLUO20CA45 PO; +FLUO20CA46 PO
--- NOTE | 2019-12-11 16:43 | ED General ---
General Stated Complaint: CHEST TIGHTNESS,HIGH BLOOD PRESSURE,SOB Source of Information: Patient History of Present Illness Date Seen by Provider: Dec 11, 2019 Time Seen by Provider: 16:41 Initial Comments Patient presents with onset of chest tightness that began last night and persist on presentation ER today. States she's had a cough for the past 3 months that has not gone away, denies fever or chills. She is a daily smoker with history of a cardiac defibrillator/pacemaker. Denies history of NC. Denies abdominal pain, nausea vomiting. States she did take her morning medications today. Called her doctor due to elevated blood pressure and chest pain and was advised, the ER. Allergies and Home Medications Allergies Coded Allergies: aspirin (Verified Allergy, Unknown, 03/07/19) latex (Verified Allergy, Unknown, 09/16/19) Home Medications Acetaminophen 500 Mg Tablet, 1,000 MG PO Q4H PRN for PAIN-MILD (1-4), (Reported) Albuterol Sulfate 1 Puff Puff, 2 PUFF INH Q4H PRN for SHORTNESS OF BREATH, (Repo rted) Amlodipine Besylate 10 Mg Tablet, 10 MG PO HS, (Reported) LAST FILLED #90 10-4-19 Clonidine HCl 0.1 Mg Tablet, 0.1 MG PO BID, (Reported) LAST FILLED #180 10-4-19 Cyclobenzaprine HCl 10 Mg Tablet, 10 MG PO BID PRN for MUSCLE SPASMS, (Reported) Diphenhydramine HCl 25 Mg Capsule, 50 MG PO HS PRN for SLEEP, (Reported) Fluoxetine HCl 20 Mg Capsule, 20 MG PO BID, (Reported) Lisinopril 20 Mg Tablet, 20 MG PO HS, (Reported) LAST FILLED #90 10-4-19 Metoprolol Succinate 50 Mg Tab.er.24h, 50 MG PO BID, (Reported) LAST FILLED #180 10-4-19 Pantoprazole Sodium 40 Mg Tablet.dr, 40 MG PO DAILY, (Reported) Spironolactone 25 Mg Tablet, 25 MG PO DAILY, (Reported) LAST FILLED #90 10-4-19 Sucralfate 1 Gm Tablet, 1 GM PO BID PRN for STOMACH UPSET, (Reported) Patient Home Medication List Home Medication List Reviewed: Yes Review of Systems Review of Systems Constitutional: see HPI; No dizziness, No fever, No malaise, No weakness Respiratory: cough, dyspnea on exertion; No hemoptysis, No orthopnea, No short of breath Cardiovascular: see HPI, chest pain; No edema, No palpitations, No vascular heart diseas Gastrointestinal: No abdominal pain, No vomiting Musculoskeletal: No back pain, No joint pain Skin: No change in color, No change in hair/nails Past Pwzwooe-Qczuas-Sorhwt Hx Past Med/Social Hx: Reviewed Nursing Past Med/Soc Hx Patient Social History Type Used: Cigarettes 2nd Hand Smoke Exposure: Yes Recent Foreign Travel: No Contact w/Someone Who Travel: No Recent Hopitalizations: No Immunizations Up To Date Tetanus Booster (TDap): Unknown Date of Pneumonia Vaccine: Aug 14, 2016 Date of Influenza Vaccine: Jul 15, 2019 Seasonal Allergies Seasonal Allergies: No Past Medical History Surgeries: Yes Defibrillator, Gallbladder, Hysterectomy, Pacemaker, 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 Respiratory: Yes (Tobaccoism) Cardiac: Yes (pacemaker/defib; a-fib) Atrial Fibrillation, Heart Attack, High Cholesterol, Hypertension 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 0oz. [id number]; 32.14 BMI Method:Stated General Appearance: No Apparent Distress, WD/WN HEENT: PERRL/EOMI, Normal ENT Inspection Neck: Non Tender, Supple Respiratory: Chest Non Tender, Lungs Clear, Normal Breath Sounds Cardiovascular: No Edema, No Gallop, No JVD, Normal Peripheral Pulses, Tachycardia Gastrointestinal: Non Tender, Soft; No Distended, No Guarding Extremity: Normal Capillary Refill, Normal Inspection, Non Tender, No Calf Tenderness Neurologic/Psychiatric: Alert, Oriented x3, No Motor/Sensory Deficits Skin: Normal Color, Warm/Dry Progress/Results/Core Measures Suspected Sepsis SIRS Temperature: Pulse: Respiratory Rate: Laboratory Tests 2/26/20 16:40: White Blood Count 7.5 Blood Pressure / Mean: Laboratory Tests 12/11/19 16:40: Creatinine 0.62, Platelet Count 296, Total Bilirubin 0.2 Results/Orders Lab Results Laboratory Tests Test 12/11/19 16:40 Range/Units White Blood Count 7.5 4.3-11.0 10^3/uL Red Blood Count 4.90 4.35-5.85 10^6/uL Hemoglobin 15.2 11.5-16.0 G/DL Hematocrit 45 35-52 % Mean Corpuscular Volume 91 80-99 FL Mean Corpuscular Hemoglobin 31 25-34 PG Mean Corpuscular Hemoglobin Concent 34 32-36 G/DL Red Cell Distribution Width 13.8 10.0-14.5 % Platelet Count 296 130-400 10^3/uL Mean Platelet Volume 9.9 7.4-10.4 FL Neutrophils (%) (Auto) 54 42-75 % Lymphocytes (%) (Auto) 38 12-44 % Monocytes (%) (Auto) 6 0-12 % Eosinophils (%) (Auto) 2 0-10 % Basophils (%) (Auto) 1 0-10 % Neutrophils # (Auto) 4.0 1.8-7.8 X 10^3 Lymphocytes # (Auto) 2.8 1.0-4.0 X 10^3 Monocytes # (Auto) 0.4 0.0-1.0 X 10^3 Eosinophils # (Auto) 0.1 0.0-0.3 10^3/uL Basophils # (Auto) 0.0 0.0-0.1 10^3/uL Sodium Level 140 135-145 MMOL/L Potassium Level 3.4 L 3.6-5.0 MMOL/L Chloride Level 102 98-107 MMOL/L Carbon Dioxide Level 21 21-32 MMOL/L Anion Gap 17 H 5-14 MMOL/L Blood Urea Nitrogen 13 7-18 MG/DL Creatinine 0.62 0.60-1.30 MG/DL Estimat Glomerular Filtration Rate > 60 BUN/Creatinine Ratio 21 Glucose Level 116 H 70-105 MG/DL Calcium Level 9.8 8.5-10.1 MG/DL Corrected Calcium 8.5-10.1 MG/DL Total Bilirubin 0.2 0.1-1.0 MG/DL Aspartate Amino Transf (AST/SGOT) 9 5-34 U/L Alanine Aminotransferase (ALT/SGPT) 14 0-55 U/L Alkaline Phosphatase 122 40-136 U/L Troponin I < 0.30 <0.30 NG/ML Total Protein 8.0 6.4-8.2 GM/DL Albumin 4.8 H 3.2-4.5 GM/DL My Orders Orders - SAMARAVENSTCHEVY NINO DO Troponin I Fs (12/11/19 16:49) Ed Iv/Invasive Line Start (12/11/19 16:49) Ekg Tracing (12/11/19 16:49) Chest 1 View Ap/Pa Only (12/11/19 16:49) Cbc With Automated Diff (12/11/19 16:49) Comprehensive Metabolic Panel (12/11/19 16:49) Ns Iv 1000 Ml (Sodium Chloride 0.9%) (12/11/19 17:00) Metoprolol Tartrate Injection (Lopressor (12/11/19 18:00) Ns Iv 1000 Ml (Sodium Chloride 0.9%) (12/11/19 18:00) Medications Given in ED Current Medications Medications Dose Ordered Sig/Norma Route Start Time Stop Time Status Last Admin Dose Admin Metoprolol Tartrate 5 mg ONCE ONCE IV 12/11/19 18:00 12/11/19 18:01 DC 12/11/19 18:00 5 MG Vital Signs/I&O 12/11/19 16:30 Temp 36.5 Pulse 131 Resp 18 B/P (MAP) 186/126 (146) Pulse Ox 97 O2 Delivery Room Air Capillary Refill : Progress Note : Progress Note Normal workup including chest x-ray and negative troponin. Heart rate remained elevated in the 110's- 120s despite 1 L normal saline bolus (was 130 on arrival). Was given 5 metoprolol IV and a second liter normal saline, then heart rate stabilized at 90. Patient has persistent coarse cough (which she says she's had for 3 months). Did discuss her long-term smoking is likely the cause of her 3 month cough. Did discuss smoking cessation as well. ECG Initial ECG Impression Date: Dec 11, 2019 Initial ECG Impression Time: 16:40 Initial ECG Rate: 120 Initial ECG Rhythm: S.Tach Initial ECG Intervals: QT (HJm=107) Departure Impression Primary Impression: Chest pain Qualified Codes: R07.9 - Chest pain, unspecified Additional Impressions: Bronchitis Tobacco dependence Sinus tachycardia Disposition: 01 HOME, SELF-CARE Condition: Improved Departure-Patient Inst. Referrals: RICHARD HERMAN MD (PCP/Family) Primary Care Physician Patient Instructions: Chronic Bronchitis, Quitting Smoking CHEVY EARLY DO Dec 11, 2019 16:43
[2019-12-11] MEDS ORDERED: NS IV 1000 ML 1,000 ML IV SCH ×2 (17:00→18:00)
[2019-12-11 17:12] LABS: BASOPHILS % (AUTO) 1 % (0-10); EOSINOPHILS # (AUTO) 0.1 10^3/uL (0.0-0.3); EOSINOPHILS % (AUTO) 2 % (0-10); HEMATOCRIT 45 % (35-52); HEMOGLOBIN 15.2 G/DL (11.5-16.0); LYMPHOCYTES # (AUTO) 2.8 X 10^3 (1.0-4.0); LYMPHOCYTES % (AUTO) 38 % (12-44); MEAN CORPUSCULAR HEMOGLOBIN 31 PG (25-34); MEAN CORPUSCULAR HGB CONC 34 G/DL (32-36); MEAN CORPUSCULAR VOLUME 91 FL (80-99); MEAN PLATELET VOLUME 9.9 FL (7.4-10.4); MONOCYTES # (AUTO) 0.4 X 10^3 (0.0-1.0); MONOCYTES % (AUTO) 6 % (0-12); NEUTROPHILS % (AUTO) 54 % (42-75); PLATELET COUNT 296 10^3/uL (130-400); RED CELL DISTRIBUTION WIDTH 13.8 % (10.0-14.5); WHITE BLOOD COUNT 7.5 10^3/uL (4.3-11.0)
--- NOTE | 2019-12-11 17:24 | Diagnostic Imaging Report ---
INDICATION: Chest tightness and cough x3 months. TECHNIQUE: Single-view chest, 5:18 p.m. CORRELATION STUDY: 11/17/2019. FINDINGS: Left-sided unipolar pacemaker remains in place. Heart size, mediastinum, and vasculature overall are stable. The lungs are clear with no consolidating infiltrate. There is no significant effusion or pneumothorax. IMPRESSION: 1. Stable chest demonstrates no acute abnormality. Dictated by: Dictated on workstation # [id number]
[2019-12-11 17:31] LABS: ALANINE AMINOTRANSFERASE 14 U/L (0-55); ALKALINE PHOSPHATASE 122 U/L (40-136); BILIRUBIN,TOTAL 0.2 MG/DL (0.1-1.0); BUN/CREATININE RATIO 21; CALCIUM 9.8 MG/DL (8.5-10.1); CARBON DIOXIDE 21 MMOL/L (21-32); CHLORIDE 102 MMOL/L (98-107); CREATININE SERUM 0.62 MG/DL (0.60-1.30); GFR ESTIMATED > 60; GLUCOSE 116 MG/DL (70-105); POTASSIUM 3.4 MMOL/L (3.6-5.0); SODIUM 140 MMOL/L (135-145)
[2019-12-11 17:32] LABS: ALBUMIN 4.8 GM/DL (3.2-4.5)
[2019-12-11] MEDS ORDERED: meTOprolol 5 MG/5 ML (LOPRESSOR) VIAL IV ONE (18:00)
[2019-12-11 18:34] VITALS: BP 171/109
--- NOTE | 2019-12-11 18:34 | NUR ---
Pt discharged from ER after didscussed stable findings and noting throughout stay pt has a very course cough that is reported to be existing for 3 mo. Pt continues to be a chronic smoker. 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 reiterates she has been reporting this cough for 3 mo that causes some tightness. Pt states to be sure her records do not state she is allergic Morphine. Pt is advised she is not meeting criteria for need of an admission per the Dr at this time and is informed of plan for discharge and patient insists to be readied now. Pt verbalizes understanding of home instructions read and verbalizes no questions. IV dc'd with 400 ml credit to waste. Pt's spouse is sleeping in waiting room.
== END 2019-12-11 18:34 | disposition home or self-care (01) ==
LOC: EDUNIT# 16:26 → ER FS 16:28
DX: J40 Bronchitis, not specified as acute or chronic (principal); R00.0 Tachycardia, unspecified; I10 Essential (primary) hypertension; E78.00 Pure hypercholesterolemia, unspecified; I48.91 Unspecified atrial fibrillation; I25.2 Old myocardial infarction; K21.9 Gastro-esophageal reflux disease without esophagitis; F17.200 Nicotine dependence, unspecified, uncomplicated; Z91.040 Latex allergy status; Z88.6 Allergy status to analgesic agent; Z95.810 Presence of automatic (implantable) cardiac defibrillator; Z98.51 Tubal ligation status
CPT/HCPCS: 36415; 71045; 80053; 84484; 85025; 93005; 96374

== ENCOUNTER 2020-02-10 10:28 | Emergency (ER) | payer BC ==
[~2020-02-10] VITALS: Ht 170 cm; Wt 91.0 kg
--- NOTE | 2020-02-10 10:32 | ED Cardiac General ---
History of Present Illness General Stated Complaint: STROKE SYMPTOMS Source: patient History of Present Illness Date Seen by Provider: Feb 10, 2020 Time Seen by Provider: 10:32 Initial Comments 49-year-old female presents due to bilateral arm numbness. Some occasional weakness. Patient reports that she has numbness that comes and goes. Patient reports his been going on for at least 4 days but likely longer. Patient reports fall for 5 days ago. She has a "knot on the back of her head" that she is not sure how it got there. Patient denies any chest pain. Patient is not actually having symptoms. She reports weakness however is not showing any weakness upon presentation holding a water bottle, her phone and doing all normal activities as she is being roomed.. Patient reports very nonspecific malaise. Patient does not have any acute complaints. Allergies and Home Medications Allergies Coded Allergies: aspirin (Verified Allergy, Unknown, 03/07/19) latex (Verified Allergy, Unknown, 09/16/19) Home Medications Acetaminophen 500 Mg Tablet, 1,000 MG PO Q4H PRN for PAIN-MILD (1-4), (Reported) Albuterol Sulfate 1 Puff Puff, 2 PUFF INH Q4H PRN for SHORTNESS OF BREATH, (Reported) Amlodipine Besylate 10 Mg Tablet, 10 MG PO HS, (Reported) LAST FILLED #90 10-4-19 Clonidine HCl 0.1 Mg Tablet, 0.1 MG PO BID, (Reported) LAST FILLED #180 10-4-19 Cyclobenzaprine HCl 10 Mg Tablet, 10 MG PO BID PRN for MUSCLE SPASMS, (Reported) Diphenhydramine HCl 25 Mg Capsule, 50 MG PO HS PRN for SLEEP, (Reported) Fluoxetine HCl 20 Mg Capsule, 20 MG PO BID, (Reported) Lisinopril 20 Mg Tablet, 20 MG PO HS, (Reported) LAST FILLED #90 10-4-19 Metoprolol Succinate 50 Mg Tab.er.24h, 50 MG PO BID, (Reported) LAST FILLED #180 10-4-19 Pantoprazole Sodium 40 Mg Tablet.dr, 40 MG PO DAILY, (Reported) Spironolactone 25 Mg Tablet, 25 MG PO DAILY, (Reported) LAST FILLED #90 10-4-19 Sucralfate 1 Gm Tablet, 1 GM PO BID PRN for STOMACH UPSET, (Reported) Patient Home Medication List Home Medication List Reviewed: Yes Review of Systems Review of Systems Constitutional: see HPI; No chills, No fever Respiratory: No Symptoms Reported Cardiovascular: No Symptoms Reported Gastrointestinal: No Symptoms Reported Genitourinary: No Symptoms Reported Musculoskeletal: see HPI Skin: see HPI Psychiatric/Neurological: See HPI Past Yhfcuyy-Uomuda-Hqmbfc Hx Past Med/Social Hx: Reviewed Nursing Past Med/Soc Hx Patient Social History Type Used: Cigarettes 2nd Hand Smoke Exposure: Yes Recent Foreign Travel: No Contact w/Someone Who Travel: No Recent Hopitalizations: No Immunizations Up To Date Tetanus Booster (TDap): Unknown Date of Pneumonia Vaccine: Aug 14, 2016 Date of Influenza Vaccine: Jul 15, 2019 Seasonal Allergies Seasonal Allergies: No Past Medical History Surgeries: Yes Defibrillator, Gallbladder, Hysterectomy, Pacemaker, 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 Respiratory: Yes (Tobaccoism) Cardiac: Yes (pacemaker/defib; a-fib) Atrial Fibrillation, Heart Attack, High Cholesterol, Hypertension 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 0oz. 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 Norm as Tested; No Abnormal restaurant and bar manager II-XII, No Abnormal Gait, No Disoriented, No EOM Palsy, No Facial Droop, No Motor Weakness, No Sensory Deficit Skin: Normal Color, Warm/Dry Lymphatic: No Adenopathy Progress/Results/Core Measures Results/Orders Lab Results Laboratory Tests Test 02/10/20 10:35 02/10/20 10:50 Range/Units White Blood Count 10.2 4.3-11.0 10^3/uL Red Blood Count 3.70 L 4.35-5.85 10^6/uL Hemoglobin 11.4 L 11.5-16.0 G/DL Hematocrit 34 L 35-52 % Mean Corpuscular Volume 92 80-99 FL Mean Corpuscular Hemoglobin 31 25-34 PG Mean Corpuscular Hemoglobin Concent 34 32-36 G/DL Red Cell Distribution Width 14.0 10.0-14.5 % Platelet Count 272 130-400 10^3/uL Mean Platelet Volume 10.1 7.4-10.4 FL Neutrophils (%) (Auto) 71 42-75 % Lymphocytes (%) (Auto) 21 12-44 % Monocytes (%) (Auto) 7 0-12 % Eosinophils (%) (Auto) 1 0-10 % Basophils (%) (Auto) 0 0-10 % Neutrophils # (Auto) 7.2 1.8-7.8 X 10^3 Lymphocytes # (Auto) 2.1 1.0-4.0 X 10^3 Monocytes # (Auto) 0.8 0.0-1.0 X 10^3 Eosinophils # (Auto) 0.1 0.0-0.3 10^3/uL Basophils # (Auto) 0.0 0.0-0.1 10^3/uL Sodium Level 137 135-145 MMOL/L Potassium Level 2.9 L 3.6-5.0 MMOL/L Chloride Level 97 L 98-107 MMOL/L Carbon Dioxide Level 25 21-32 MMOL/L Anion Gap 15 H 5-14 MMOL/L Blood Urea Nitrogen 21 H 7-18 MG/DL Creatinine 1.50 H 0.60-1.30 MG/DL Estimat Glomerular Filtration Rate 37 BUN/Creatinine Ratio 14 Glucose Level 114 H 70-105 MG/DL Calcium Level 8.2 L 8.5-10.1 MG/DL Corrected Calcium 8.4 L 8.5-10.1 MG/DL Magnesium Level 1.8 1.6-2.4 MG/DL Total Bilirubin 0.4 0.1-1.0 MG/DL Aspartate Amino Transf (AST/SGOT) 11 5-34 U/L Alanine Aminotransferase (ALT/SGPT) 9 0-55 U/L Alkaline Phosphatase 132 40-136 U/L Troponin I < 0.30 <0.30 NG/ML Total Protein 6.7 6.4-8.2 GM/DL Albumin 3.8 3.2-4.5 GM/DL Urine Color YELLOW Urine Clarity SL CLOUDY Urine pH 6.0 5-9 Urine Specific [place] 1.020 1.016-1.022 Urine Protein NEGATIVE NEGATIVE Urine Glucose (UA) NEGATIVE NEGATIVE Urine Ketones NEGATIVE NEGATIVE Urine Nitrite NEGATIVE NEGATIVE Urine Bilirubin NEGATIVE NEGATIVE Urine Urobilinogen 0.2 < = 1.0 MG/DL Urine Leukocyte Esterase NEGATIVE NEGATIVE Urine RBC (Auto) NEGATIVE NEGATIVE Urine RBC NONE /HPF Urine WBC 5-10 H /HPF Urine Squamous Epithelial Cells >50 H /HPF Urine Crystals NONE /LPF Urine Bacteria FEW H /HPF Urine Casts NONE /LPF Urine Mucus LARGE H /LPF Urine Culture Indicated NO Urine Opiates Screen NEGATIVE NEGATIVE Urine Oxycodone Screen NEGATIVE NEGATIVE Urine Methadone Screen NEGATIVE NEGATIVE Urine Propoxyphene Screen NEGATIVE NEGATIVE Urine Barbiturates Screen NEGATIVE NEGATIVE Ur Tricyclic Antidepressants Screen POSITIVE H NEGATIVE Urine Phencyclidine Screen NEGATIVE NEGATIVE Urine Amphetamines Screen NEGATIVE NEGATIVE Urine Methamphetamines Screen NEGATIVE NEGATIVE Urine Benzodiazepines Screen NEGATIVE NEGATIVE Urine Cocaine Screen NEGATIVE NEGATIVE Urine Cannabinoids Screen NEGATIVE NEGATIVE My Orders Orders - LOPEZ,TERESSA L DO Cbc With Automated Diff (02/10/20 10:38) Drug Screen Stat (Urine) (02/10/20 10:38) Magnesium (02/10/20 10:38) Ua Culture If Indicated (02/10/20 10:38) Troponin I Fs (02/10/20 10:38) Ekg Tracing (02/10/20 10:38) Ct Head Wo-R/O Stroke (02/10/20 10:38) Comprehensive Metabolic Panel (02/10/20 11:23) Potassium Chloride (Tablet) (K Dur Table (02/10/20 12:00) Ns Iv 1000 Ml (Sodium Chloride 0.9%) (02/10/20 12:00) Ns Iv 1000 Ml (Sodium Chloride 0.9%) (02/10/20 11:40) Medications Given in ED Current Medications Medications Dose Ordered Sig/Norma Route Start Time Stop Time Status Last Admin Dose Admin Potassium Chloride 40 meq ONCE ONCE PO 02/10/20 12:00 02/10/20 12:01 DC 02/10/20 11:52 40 MEQ Vital Signs/I&O 02/10/20 10:34 Temp 37.7 Pulse 92 Resp 18 B/P (MAP) 107/59 (75) Pulse Ox 94 O2 Delivery Room Air Initial ECG Impression Date: Feb 10, 2020 Initial ECG Impression Time: 10:50 Initial ECG Rhythm: Normal Sinus Initial ECG Impression: Nonspecific Changes Initial ECG Comparisson: Unchanged (similar to 12/11/19) Comment poor quality due to patient moving, no acute findings compared to ekg dated 12/11/19 Diagnostic Imaging Diagonstic Imaging: CT Plain Films/CT/US/NM/MRI: head Comments [facility], [place] NAME: JENNIFER DICKERSON [facility] REC#: [id number] PT STATUS: REG ER : 1970 PHYSICIAN: TERESSA LOPEZ DO ADMIT DATE: 02/10/20/ER FS Draft Date of Exam:02/10/20 CT HEAD WO-R/O STROKE PROCEDURE: CT head without, r/o stroke. TECHNIQUE: Multiple contiguous axial images were obtained through the brain without the use of intravenous contrast. Auto Exposure Controls were utilized during the CT exam to meet ALARA standards for radiation dose reduction. INDICATION: Right hand weakness x 1 week. FINDINGS: The overall quality of the study is somewhat limited due to patient motion. The ventricular size is normal. No hydrocephalus is seen. The silva/white matter differentiation is maintained. There is no midline shift. No acute intra-axial or extra-axial hemorrhage is detected. The cisterns are patent. The visualized paranasal sinuses are clear. IMPRESSION: Somewhat compromised study due to motion artifact. No acute intracranial process is detected. Departure Impression Primary Impression: Hypokalemia Additional Impressions: Acute kidney injury Dehydration Disposition: 01 HOME, SELF-CARE Condition: Stable Departure-Patient Inst. Referrals: RICHARD HEMRAN MD (PCP/Family) Primary Care Physician Follow-up in 2-3 days for recheck of symptoms and continuation of care Patient Instructions: Acute Kidney Injury, Hypokalemia Add. Discharge Instructions: Emergency department focuses on treating and ruling out life-threatening diseases. Whenever possible, a diagnosis is given. However, most patients are given an impression based on their history, physical exam, and workup during your brief time in the ER. Information about probable diagnosis and other educational material has been provided. Please take the time to read and understand this information. It is very important that you follow up with a physician as discussed during the visit today. Failure to adhere to your follow-up instructions may lead to severe disability, injury, or so please make sure to keep your appointments or obtain one as requested. Please keep in mind the emergency department is not designed to your primary care or "family doctor" and nonurgent issues are best evaluated by an outpatient physician TERESSA LOPEZ DO Feb 10, 2020 10:32
--- NOTE | 2020-02-10 10:56 | Diagnostic Imaging Report ---
PROCEDURE: CT head without, r/o stroke. TECHNIQUE: Multiple contiguous axial images were obtained through the brain without the use of intravenous contrast. Auto Exposure Controls were utilized during the CT exam to meet ALARA standards for radiation dose reduction. INDICATION: Right hand weakness x 1 week. FINDINGS: The overall quality of the study is somewhat limited due to patient motion. The ventricular size is normal. No hydrocephalus is seen. The silva/white matter differentiation is maintained. There is no midline shift. No acute intra-axial or extra-axial hemorrhage is detected. The cisterns are patent. The visualized paranasal sinuses are clear. IMPRESSION: Somewhat compromised study due to motion artifact. No acute intracranial process is detected. Dictated by: Dictated on workstation # [id number]
[2020-02-10 10:59] LABS: BASOPHILS % (AUTO) 0 % (0-10); EOSINOPHILS # (AUTO) 0.1 10^3/uL (0.0-0.3); EOSINOPHILS % (AUTO) 1 % (0-10); HEMATOCRIT 34 % (35-52); HEMOGLOBIN 11.4 G/DL (11.5-16.0); LYMPHOCYTES # (AUTO) 2.1 X 10^3 (1.0-4.0); LYMPHOCYTES % (AUTO) 21 % (12-44); MEAN CORPUSCULAR HEMOGLOBIN 31 PG (25-34); MEAN CORPUSCULAR HGB CONC 34 G/DL (32-36); MEAN PLATELET VOLUME 10.1 FL (7.4-10.4); MONOCYTES # (AUTO) 0.8 X 10^3 (0.0-1.0); MONOCYTES % (AUTO) 7 % (0-12); NEUTROPHILS # (AUTO) 7.2 X 10^3 (1.8-7.8); NEUTROPHILS % (AUTO) 71 % (42-75); PLATELET COUNT 272 10^3/uL (130-400); WHITE BLOOD COUNT 10.2 10^3/uL (4.3-11.0)
[2020-02-10 11:00] LABS: MEAN CORPUSCULAR VOLUME 92 FL (80-99)
--- OUTSIDE RECORDS SUMMARY | 2020-02-10 11:00 | XMS REPORT | Continuity of Care Document ---
Author Organization Unknown Address Unknown Phone Unavailable Allergies Active Description Code Type Severity Reaction Onset Reported/Identified Relationship to Patient Clinical Status Yes aspirin [id number] Drug Allergy Unknown N/A 03/07/2019 Yes morphine [id number] Drug Allergy Unknown N/A 04/21/2019 Yes morphine [id number] Drug Allergy Unknown Pt has received 09/06/2019 Yes latex [id number] Drug Allergy Unknown N/A 09/16/2019 Medications There is no data. Problems Date Dx Coded Attending Type Code Diagnosis Diagnosed By 01/12/2019 CAROLANN GUTHRIE DOED T Ot I10 ESSENTIAL (PRIMARY) HYPERTENSION 01/12/2019 CAROLANN GUTHRIE DOED T Ot R07. 9 CHEST PAIN, UNSPECIFIED 01/12/2019 CAROLANN GUTHRIE DOED T Ot Z88. 5 ALLERGY STATUS TO [...] ALLERGY STATUS TO ANALGESIC AGENT STATUS 01/17/2019 CAROLANN GUTHRIE DOED T Ot Z95. 0 [...] MD Ot R05 COUGH 03/01/2019 LAMIN ADLER MD Ot Z88.5 ALLERGY STATUS [...] Ot R07. 9 CHEST PAIN, UNSPECIFIED 03/05/2019 CHARLOTTE GUTHRIE DO T Ot T82.198A [facility] COMPL OF OTHER CARDIAC ELECTRONIC D [...] 03/06/2019 JERRI TALBERT, CHARLOTTE T Ot T82.198A [facility] COMPL OF OTHER CARDIAC ELECTRONIC D 03/06/2019 JERRI TALBERT, HCARLOTTE T Ot Z77. 22 CNTCT W AND [...] ARISTEO Ot I25.10 ATHSCL HEART DISEASE OF [place] CORONARY 03/07/2019 COYNE , ARISTEO Ot R10.31 RIGHT LOWER QUADRANT PAIN [...] 03/10/2019 JERRI TALBERT, [place] T Ot T82.198A [facility] COMPL OF OTHER CARDIAC ELECTRONIC D 03/10/2019 JERRI TALBERT, [place] T Ot Z77. 22 CNTCT W AND EXPSR TO ENVIRON TOBACCO SMO 03/10/2019 [facility], [place] T Ot Z88. 5 ALLERGY STATUS TO NARCOTIC AGENT STATUS 03/10/2019 JERRI TALBERT, [place] T Ot Z88. 6 ALLERGY STATUS TO ANALGESIC AGENT STATUS 03/10/2019 JERRI TALBERT, [place] T Ot Z95.810 PRESENCE OF AUTOMATIC (IMPLANTABLE) CARD 03/12/2019 DORETHA TALBERT, ARISTEO Ot I10 ESSENTIAL (PRIMARY) HYPERTENSION 03/12/2019 COYNE DO, ARISTEO Ot I25.10 ATHSCL HEART DISEASE OF [place] CORONARY 03/12/2019 COYNE DO, ARISTEO Ot R10.31 RIGHT LOWER QUADRANT PAIN 03/12/2019 COYNE DO, ARISTEO Ot Z77.22 CNTCT W AND EXPSR TO ENVIRON TOBACCO SMO 03/12/2019 COYNE DO, ARISTEO Ot Z88.5 ALLERGY STATUS TO NARCOTIC AGENT STATUS 03/12/2019 DORETHA TALBERT, ARISTEO Ot Z88.6 ALLERGY STATUS TO ANALGESIC AGENT STATUS 03/12/2019 [facility], ARISTEO Ot Z95.810 PRESENCE OF AUTOMATIC (IMPLANTABLE) CARD 03/12/2019 COYNE , ARISTEO Ot Z95.9 PRESENCE OF CARDIAC AND VASCULAR IMPLANT 04/21/2019 NEHA ROSE MD Ot F17.210 NICOTINE DEPENDENCE, CIGARETTES, UNCOMPL 04/21/2019 NEHA ROSE MD Ot I25. 10 ATHSCL HEART DISEASE OF [place] CORONARY 04/21/2019 NEHA ROSE MD Ot R07. [...] Ot I25. 10 ATHSCL HEART DISEASE OF [place] CORONARY 04/27/2019 NEHA ROSE MD Ot R07. [...] CNTCT W AND EXPSR TO ENVIRON TOBACCO [facility] 07/16/2019 [place] DO, ARISTEO Ot Z88.5 ALLERGY STATUS TO NARCOTIC AGENT STATUS 07/16/2019 COY[place] DO, ARISTEO Ot Z88.6 ALLERGY STATUS TO ANALGESIC AGENT STATUS 07/16/2019 [place] DO, ARISTEO Ot Z90.710 ACQUIRED ABSENCE OF BOTH CERVIX AND UTER 07/16/2019 [place] DO, ARISTEO Ot Z95.810 PRESENCE OF AUTOMATIC (IMPLANTABLE) CARD 07/16/2019 [place] DO, ARISTEO Ot Z98.51 TUBAL LIGATION STATUS 07/18/2019 [place] DO, ARISTEO Ot I10 ESSENTIAL (PRIMARY) HYPERTENSION 07/18/2019 [place] DO, ARISTEO Ot I25.2 OLD MYOCARDIAL INFARCTION 07/18/2019 [place] DO, ARISTEO Ot R03.0 ELEVATED BLOOD-PRESSURE READING, W/O GHADA 07/18/2019 [place] DO, ARISTEO Ot R07.9 CHEST PAIN, UNSPECIFIED 07/18/2019 [place] DO, ARISTEO Ot Z77.22 CNTCT W AND EXPSR TO ENVIRON TOBACCO [facility] 07/18/2019 [place] DO, ARISTEO Ot Z88.5 ALLERGY STATUS TO NARCOTIC AGENT STATUS 07/18/2019 [place] DO, ARISTEO Ot Z88.6 ALLERGY STATUS TO ANALGESIC AGENT STATUS 07/18/2019 [place] DO, ARISTEO Ot Z90.710 ACQUIRED ABSENCE OF BOTH CERVIX AND UTER 07/18/2019 [place] DO, ARISTEO Ot Z95.810 PRESENCE OF AUTOMATIC (IMPLANTABLE) CARD 07/18/2019 [place] DO, ARISTEO Ot Z98.51 TUBAL LIGATION STATUS 07/19/2019 NAYELY DUNCAN, LAMIN Fox Ot G89.2 9 OTHER CHRONIC PAIN 07/19/2019 NAYELY DUNCAN, LAMIN Fox Ot I10 ESSENTIAL (PRIMARY) HYPERTENSION 07/19/2019 NAYELY DUNCAN, LAMIN Fox Ot I25.2 OLD MYOCARDIAL INFARCTION 07/19/2019 NAYELY [...] PNEUMONIA, UNSPECIFIED ORGANISM 08/08/2019 CRAIG KHANNA MD A Ot J44. 1 [...] MD Ot I25.10 ATHSCL HEART DISEASE OF [place] CORONARY 09/06/2019 ALEXANDRE MATA MD, Ot I25.2 OLD MYOCARDIAL INFARCTION 09/06/2019 ALEXANDRE [...] ALEXANDRE MATA MD, Ot Z79.[address] REGISTRY OFFICER (CURRENT) DRUG THERAPY 09/06/2019 ALEXANDRE MATA MD, [...] GASTRO-ESOPHAGEAL REFLUX DISEASE WITHOUT 09/08/2019 MCKENNA SOLANO MD Ot M54. 5 LOW BACK PAIN 09/08/2019 [...] 09/11/2019 CRAIG KHANNA MD A Ot T82.191A [facility] COMPL OF CARDIAC PULSE GENERATOR (B [...] 09/13/2019 CRAIG KHANNA MD A Ot T82.191A [facility] COMPL OF CARDIAC PULSE GENERATOR (B 09/13/2019 CRAIG KHANNA MD, Ot Z77. 22 CNTCT [...] MD, Ot I25.10 ATHSCL HEART DISEASE OF [place] CORONARY 09/16/2019 ALEXANDRE MATA MD, Ot I25.2 [...] ALEXANDRE MATA MD, Ot Z79.89 9 OTHER INTERMEDIATE (CURRENT) DRUG THERAPY 09/16/2019 ALEXANDRE MATA MD, [...] Ot I25.2 OLD MYOCARDIAL INFARCTION 09/16/2019 ROVENSTINE DO CHEVY L Ot K21.9 GASTRO-ESOPHAGEAL REFLUX DISEASE WITHOUT 09/16/2019 ROVENSTINE DOPATRICKEN L Ot R00.0 TACHYCARDIA, UNSPECIFIED 09/16/2019 ROVENSTINE DO, CHEVY L Ot T82.191A [facility] COMPL OF CARDIAC PULSE GENERATOR (B 09/16/2019 ROVENSTINE DO CHEVY L Ot Z88.5 ALLERGY STATUS TO NARCOTIC AGENT STATUS 09/16/2019 ROVENSTINE DO CHEVY L Ot Z88.6 ALLERGY STATUS TO ANALGESIC AGENT STATUS 09/16/2019 ROVENSTINE DO, CHEVY L Ot Z90.710 ACQUIRED ABSENCE OF BOTH CERVIX AND UTER 09/16/2019 ROVENSTINE DO CHEVY L Ot Z91.040 LATEX ALLERGY STATUS 09/16/2019 ROVENSTINE DO CHEVY L Ot Z98.51 TUBAL LIGATION STATUS [...] WITHOUT 09/19/2019 CRAIG KHANNA MD Ot T82.191A [facility] COMPL OF CARDIAC PULSE GENERATOR (B 09/19/2019 CRAIG KHANNA MD, Ot Z77. 22 CNTCT W AND EXPSR TO ENVIRON TOBACCO SMO 09/19/2019 CRAIG KHANNA MD, Ot Z88. 6 ALLERGY STATUS TO ANALGESIC AGENT STATUS 09/19/2019 CRAIG KHANNA MD Ot Z90.710 ACQUIRED ABSENCE OF BOTH CERVIX AND UTER 09/19/2019 CRAIG KHANAN MD Ot Z98. 51 TUBAL LIGATION STATUS [...] 09/21/2019 ROVENSTINE DO, CHEVY L Ot T82.191A [facility] COMPL OF CARDIAC PULSE GENERATOR (B [...] L Ot Z98.51 TUBAL LIGATION STATUS 10/03/2019 CLAUDIA RYAN DO L Ot E78.00 PURE HYPERCHOLESTEROLEMIA, UNSPECIFIED [...] Ot Z91.040 LATEX ALLERGY STATUS 10/03/2019 CONNOR TALBERTCLAUDIA Ot Z95.810 PRESENCE OF AUTOMATIC (IMPLANTABLE) CARD [...] RIGHT HAND, INITIAL ENCOUNT 10/08/2019 LAMIN ADLER MD Ot T23.161A BURN OF FIRST DEGREE OF [...] UNSPECIFIED 10/12/2019 ROSANNE DUNN MD Ot T82.198A [facility] COMPL OF OTHER CARDIAC ELECTRONIC D 10/12/2019 ROSANNE DUNN MD Ot Z79.[address] REGISTRY OFFICER (CURRENT) DRUG THERAPY 10/12/2019 ROSANNE DUNN MD Ot Z82.49 FAMILY HX OF ISCHEM HEART DIS AND OTH DI 10/12/2019 ROSANNE DUNN MD Ot Z88 .5 ALLERGY [...] UNSPECIFIED 10/12/2019 ROSANNE DUNN MD Ot T82.198A [facility] COMPL OF OTHER CARDIAC ELECTRONIC D 10/12/2019 ROSANNE DUNN MD Ot Z79.899 OTHER INTERMEDIATE (CURRENT) DRUG THERAPY 10/12/2019 ROSANNE DUNN MD [...] Ot I25.2 OLD MYOCARDIAL INFARCTION 10/14/2019 KURT TRJEO MD Ot I48.91 UNSPECIFIED ATRIAL FIBRILLATION 10/14/2019 [...] OF UNSP DEGREE OF BACK OF RIGHT RYNA 10/15/2019 NEHA ROSE MD Ot T31. 0 [...] CHEST PAIN, UNSPECIFIED 10/20/2019 JEAN PAUL LIRIANO MD Ot R20.2 PARESTHESIA OF SKIN 10/20/2019 JEAN [...] UNSPECIFIED 10/24/2019 ROSANNE DUNN MD Ot T82.198A [facility] COMPL OF OTHER CARDIAC ELECTRONIC D 10/24/2019 ROSANNE DUNN MD Ot Z79.899 OTHER INTERMEDIATE (CURRENT) DRUG THERAPY 10/24/2019 ROSANNE DUNN MD [...] I25.2 OLD MYOCARDIAL INFARCTION 11/03/2019 LAMIN ADLER MD, Ot I48.9 1 UNSPECIFIED ATRIAL FIBRILLATION 11/03/2019 LAMIN ADLER MD, Ot J06.9 ACUTE UPPER RESPIRATORY INFECTION, UNSPE 11/03/2019 LAMIN ADLER MD, Ot K21.9 GASTRO-ESOPHAGEAL REFLUX DISEASE WITHOUT 11/03/2019 LAMIN ADLER MD, Ot R05 COUGH 11/03/2019 LAMIN ADLER MD, [...] NICOTINE DEPENDENCE, CIGARETTES, UNCOMPL 11/06/2019 LAMIN ADLER MD Ot I10 ESSENTIAL (PRIMARY) HYPERTENSION 11/06/2019 LAMIN ADLER MD, Ot I25.2 OLD MYOCARDIAL INFARCTION 11/06/2019 LAMIN ADLER MD Ot I48.9 1 UNSPECIFIED ATRIAL FIBRILLATION 11/06/2019 LAMIN ADLER MD Ot J06.9 ACUTE UPPER RESPIRATORY INFECTION, UNSPE [...] MD, Ot Z98.5 1 TUBAL LIGATION STATUS 11/18/2019 SINCERE LILLY MD Ot E78. 00 PURE HYPERCHOLESTEROLEMIA, UNSPECIFIED 11/18/2019 SINCERE LILLY MD Ot E87. 6 HYPOKALEMIA 11/18/2019 SINCERE LILLY MD Ot G89. 29 OTHER CHRONIC PAIN 11/18/2019 SINCERE LILLY MD Ot I10 ESSENTIAL (PRIMARY) HYPERTENSION 11/18/2019 SINCERE LILLY MD, Ot I25. 2 OLD MYOCARDIAL INFARCTION 11/18/2019 SINCERE LILLY MD Ot I48. 91 UNSPECIFIED ATRIAL FIBRILLATION 11/18/2019 SINCERE LILLY MD Ot K21. 9 GASTRO-ESOPHAGEAL REFLUX DISEASE WITHOUT 11/18/2019 SINCERE LILLY MD, Ot M54. 9 DORSALGIA, UNSPECIFIED 11/18/2019 SINCERE LILLY MD Ot Z79. 82 INTERMEDIATE (CURRENT) USE OF ASPIRIN 11/18/2019 SINCERE LILLY MD, Ot Z79.899 OTHER INTERMEDIATE (CURRENT) DRUG THERAPY 11/18/2019 SINCERE LILLY MD, Ot Z88. 0 ALLERGY STATUS TO PENICILLIN 11/18/2019 SINCERE LILLY MD, Ot Z88. 5 ALLERGY STATUS TO NARCOTIC AGENT STATUS 11/18/2019 SINCERE LILLY MD, Ot Z90.710 ACQUIRED ABSENCE OF BOTH CERVIX AND UTER 11/18/2019 SINCERE LILLY MD Ot Z91.040 LATEX ALLERGY STATUS 11/18/2019 SINCERE LILLY MD, Ot Z98. 51 TUBAL LIGATION STATUS 11/18/2019 SINCERE LILLY MD, Ot Z98.810 DENTAL SEALANT STATUS 12/11/2019 ROVENSTINE DO, CHEVY Lezama Ot E78.00 PURE HYPERCHOLESTEROLEMIA, UNSPECIFIED 12/11/2019 ROVENSTINE DO, CHEVY L Ot F17.200 NICOTINE DEPENDENCE, UNSPECIFIED, UNCOMP 12/11/2019 ROVENSTINE DO, CHEVY L Ot I10 ESSENTIAL (PRIMARY) HYPERTENSION 12/11/2019 ROVENSTINE DO, CHEVY L Ot I25.2 OLD MYOCARDIAL INFARCTION 12/11/2019 ROVENSTINE DO, CHEVY L Ot I48.91 UNSPECIFIED ATRIAL FIBRILLATION 12/11/2019 ROVENSTINE DO, CHEVY L Ot J40 BRONCHITIS, NOT SPECIFIED ACUTE OR CH 12/11/2019 ROVENSTINE DO, CHEVY L Ot K21.9 GASTRO-ESOPHAGEAL REFLUX DISEASE WITHOUT 12/11/2019 ROVENSTINE DO, CHEVY L Ot R00.0 TACHYCARDIA, UNSPECIFIED 12/11/2019 ROVENSTINE DO, CHEVY L Ot R07.89 OTHER CHEST PAIN 12/11/2019 ROVENSTINE DO, CHEVY L Ot Z88.6 ALLERGY STATUS TO ANALGESIC AGENT STATUS 12/11/2019 ROVENSTINE DO, CHEVY Lezama Ot Z91.040 LATEX ALLERGY STATUS 12/11/2019 ROVENSTINE DO, CHEVY L Ot Z95.810 PRESENCE OF AUTOMATIC (IMPLANTABLE) CARD 12/11/2019 ROVENSTINE DO, CHEVY Lezama Ot Z98.51 TUBAL LIGATION STATUS 12/13/2019 ROVENSTINE DO, CHEVY Lezama Ot E78.00 PURE HYPERCHOLESTEROLEMIA, UNSPECIFIED 12/13/2019 ROVENSTINE DO, CHEVY Lezama Ot F17.200 NICOTINE DEPENDENCE, UNSPECIFIED, UNCOMP 12/13/2019 ROVENSTINE DO, CHEVY Lezama Ot I10 ESSENTIAL (PRIMARY) HYPERTENSION 12/13/2019 ROVENSTINE DO, CHEVY Lezama Ot I25.2 OLD MYOCARDIAL INFARCTION 12/13/2019 ROVENSTINE DO, CHEVY Lezama Ot I48.91 UNSPECIFIED ATRIAL FIBRILLATION 12/13/2019 ROVENSTINE DO, CHEVY Lezama Ot J40 BRONCHITIS, NOT SPECIFIED ACUTE OR CH 12/13/2019 ROVENSTINE DO, CHEVY Lezama Ot K21.9 GASTRO-ESOPHAGEAL REFLUX DISEASE WITHOUT 12/13/2019 ROVENSTINE DO, CHEVY Lezama Ot R00.0 TACHYCARDIA, UNSPECIFIED 12/13/2019 ROVENSTINE DO, CHEVY Lezama Ot R07.89 OTHER CHEST PAIN 12/13/2019 ROVENSTINE DO, CHEVY Lezama Ot Z88.6 ALLERGY STATUS TO ANALGESIC AGENT STATUS 12/13/2019 ROVENSTINE DO, CHEVY Lezama Ot Z91.040 LATEX ALLERGY STATUS 12/13/2019 ROVENSTINE DO, CHEVY Lezama Ot Z95.810 PRESENCE OF AUTOMATIC (IMPLANTABLE) CARD 12/13/2019 ROVENSTINE DO, CHEVY Lezama Ot Z98.51 TUBAL LIGATION STATUS Procedures There [...] 0605. NR Bacterial sputum culture - 02/27/19 20:2 3 FREE TEXT EXTERNAL SUSCEPTIBILITY REPORTED 03/03/19 12:05 NRG QUANTITY OF GROWTH Many [facility] Bacterial sputum culture [id number] NR Complete blood count (CBC) with automate d [...] % 12-44 Blood monocytes/100 leukocytes 4 % NR Automated blood eosinophils/100 leukocytes 1 % 0-10 Automated blood basophils/100 leukocytes 0 % 0-10 Blood neutrophils automated count (number/volume) 4.4 10*3 1.8-7.8 Blood lymphocytes automated count (number/volume) 1.4 10*3 1.0-4.0 Blood monocytes automated count (number/volume) 0. 4 10*3 0.0-1.0 Automated eosinophil count 0.1 10*3/uL 0 .0-0.3 Automated blood basophil count (count/volume) 0.0 10*3/uL 0.0-0.1 Manual blood segmented neutrophils/100 leukocytes 75 % NRG Manual blood lymphocytes/100 leukocytes 15 % NRG Blood lymphocytes variant/100 leukocytes 6 % NRG Blood microcytes detection by light microscopy [facility] Influenza virus A and B antigen detectio n - 11/17/19 20:52 FLU RESULT NEGATIVE FOR INFLUENZA A AND B ANTIGENS BY IA [facility] Comprehensive metabolic panel - 11/17/19 20:52 Serum [...] - 11/18/19 08:40 Magnesium 1.7 mg/dL 1.6-2.4 Complete blood count (CBC) with automate d white blood cell (WBC) differential - 12/11/19 16:40 Blood leukocytes automated count (number/volume) 7.5 10*3/uL 4.3-11.0 Blood erythrocytes automated count (number/volume) 4.90 10*6/uL 4.35-5.85 Venous blood hemoglobin measurement (mass/volume) 15.2 g/dL 11.5-16.0 Blood hematocrit (volume fraction) 45 % 35-52 Automated erythrocyte mean corpuscular volume 91 [ foz_us] 80-99 Automated erythrocyte mean corpuscular h emoglobin (mass per erythrocyte) 31 pg 25-34 Automated erythrocyte mean corpuscular h emoglobin concentration measurement (mass/volume) 34 g/dL 32-36 Automated erythrocyte distribution width ratio 13. 8 % 10.0- 14.5 Automated blood platelet count (count/volume) 296 10*3/uL 130-400 Automated blood platelet mean volume measurement 9.9 [foz_us] 7.4-10.4 Automated blood neutrophils/100 leukocytes 54 % 42-75 Automated blood lymphocytes/100 leukocytes 38 % 12-44 Blood monocytes/100 leukocytes 6 % 0-12 Automated blood eosinophils/100 leukocytes 2 % 0-10 Automated blood basophils/100 leukocytes 1 % 0-10 Blood neutrophils automated count (number/volume) 4.0 10*3 1.8-7.8 Blood lymphocytes automated count (number/volume) 2.8 10*3 1.0-4.0 Blood monocytes automated count (number/volume) 0. 4 10*3 0.0-1.0 Automated eosinophil count 0.1 10*3/uL 0 .0-0.3 Automated blood basophil count (count/volume) 0.0 10*3/uL 0.0-0.1 Comprehensive metabolic panel - 12/11/19 16:40 Serum or plasma sodium measurement (moles/volume) 140 mmol/L 135-145 Serum or plasma potassium measurement (moles/volume) 3.4 mmol/L 3.6-5.0 Serum or plasma chloride measurement (moles/volume) 102 mmol/L 98-107 Carbon dioxide 21 mmol/L 21-32 Serum or plasma anion gap determination (moles/volume) 17 mmol/L 5-14 Serum or plasma urea nitrogen measurement (mass/volume ) 13 mg/dL 7-18 Serum or plasma creatinine measurement (mass/volume) 0.62 mg/dL 0.60-1.30 Serum or plasma urea nitrogen/creatinine mass ratio 21 NRG Serum or plasma creatinine measurement w ith calculation of estimated glomerular filtration rate > NRG Serum or plasma glucose measurement (mass/volume) 116 mg/dL 70-105 Serum or plasma calcium measurement (mass/volume) 9.8 mg/dL 8.5-10.1 Serum or plasma total bilirubin measurement (mass/volu me) 0.2 mg/dL 0.1-1.0 Serum or plasma alkaline phosphatase eugene surement (enzymatic activity/volume) 122 U/L 40-136 Serum or plasma aspartate aminotransfera se measurement (enzymatic activity/volume) 9 U/L 5-34 Serum or plasma alanine aminotransferase measurement (enzymatic activity/volume) 14 U/L 0-55 Serum or plasma protein measurement (mass/volume) 8.0 g/dL 6.4-8.2 Serum or plasma albumin measurement (mass/volume) 4.8 g/dL 3.2-4.5 TROPONIN I FS - 12/11/19 16:40 TROPONIN I FS < 0.30 <0.30 CBC - 01/09/20 15:54 WHITE BLOOD CELL COUNT 9.5 Thousand/uL 3 .8-10.8 RED BLOOD CELL COUNT 5.11 Million/uL 3.8 0-5.10 HEMOGLOBIN 16.1 g/dL 11.7-15.5 HEMATOCRIT 46.7 % 35.0-45.0 MCV 91.4 fL 80.0-100.0 MCH 31.5 pg 27.0-33.0 MCHC 34.5 g/dL 32.0-36.0 RDW 13.0 % 11.0-15.0 PLATELET COUNT 292 Thousand/uL 140-400 MPV 10.1 fL 7.5-12.5 ABSOLUTE NEUTROPHILS 6242 cells/uL 1500- 7800 ABSOLUTE LYMPHOCYTES 2622 cells/uL 850-3 900 ABSOLUTE MONOCYTES 513 cells/uL 200-950 ABSOLUTE EOSINOPHILS 86 cells/uL 15-500 ABSOLUTE BASOPHILS 38 cells/uL 0-200 NEUTROPHILS 65.7 % NRG LYMPHOCYTES 27.6 % NRG MONOCYTES 5.4 % NRG EOSINOPHILS 0.9 % NRG BASOPHILS 0.4 % NRG Encounters ACCT No. Visit Date/Time Discharge Status Pt. Type Provider Facility Loc./Unit Complaint [id number] 01/09/2020 15:40:00 01/09/2020 23:59:5 9 [facility] Outpatient RICHARD [facility] [id number] 01/09/2020 15:40:00 Document Registration [id number] 07/09/2019 13:00:00 Document Registration [id number] 01/08/2019 11:40:00 Document Registration [id number] 12/11/2019 16:28:00 18:34:00 DIS Emergency CHEVY EARLY DO [facility] ER FS CHEST TIGHTNESS ,HIGH BLOOD PRESSURE,SOB [id number] 11/17/2019 23:45:00 11:32:00 DIS Inpatient SINCERE LILLY MD [facility] ICU PACEMAKER WENT OFF [id number] 11/03/2019 17:44:00 19:06:00 DIS Emergency NAYELY DUNCAN, LAMIN Fox [facility] ER FS VOMITING,COUGH,SOB [id number] 10/20/2019 21:45:00 23:32:00 DIS Emergency DEANDRA DUNCAN, JEAN PAUL Lezama [facility] ER FS CHEST PAIN/RIGHT ARM PA IN [id number] 10/11/2019 06:00:00 11:49:00 DIS Inpatient SHAUN DUNCAN, ROSANNE Caicedo [facility] CSD CHEST PAIN,NEAR SYNCOPE,DEFRIBRILLATOR FIRING [id number] 10/10/2019 15:11:00 16:00:00 DIS Emergency MILTON DUNCAN, NEHA Mejia [facility] ER FS RT HAND WOUND CHECK [id number] 10/08/2019 18:38:00 20:25:00 DIS Emergency LAMIN ADLER MD [facility] ER FS R HAND BURN [id number] 10/08/2019 02:03:00 03:37:00 DIS Emergency KURT TREJO MD [facility] ER FS HYPENTENSION [id number] 10/07/2019 15:09:00 16:45:00 DIS Emergency KURT TREJO MD [facility] ER FS CHEST PAIN/SOA [id number] 10/05/2019 21:02:00 22:28:00 DIS Emergency JEAN PAUL LIRIANO MD [facility] ER FS CHEST PAIN/SOB [id number] 10/03/2019 20:20:00 22:28:00 DIS Emergency CLAUDIA RYAN DO [facility] ER FS CHEST PAIN [id number] 09/16/2019 16:26:00 18:14:00 DIS Emergency ROVENSTCHEVY NINO DO [facility] ER FS PACE MAKER ISSU E [id number] 09/11/2019 19:21:00 21:55:00 DIS Emergency JEY DUNCAN, CRAIG Ozuna [facility] ER FS IRR HEART RATE [id number] 09/08/2019 17:50:00 18:56:00 DIS Emergency XIOMARA DUNCAN, MCKENNA Gonzalez [facility] ER FS BACK PAIN [id number] 09/06/2019 11:14:00 14:16:00 DIS Outpatient ALEXANDRE MATA MD [facility] ENDO ESOPHAGEAL MASS PER CT/ COUGH [id number] 09/02/2019 05:47:00 23:59:59 CLS Outpatient ALEXANDRE MATA MD [facility] PREOP EGD [id number] 08/13/2019 23:45:00 18:08:00 DIS Inpatient CHRIS DUNCAN, MARIAJOSE Gimenez [facility] 4TH ACS1 ELEV TROPONIN, TASHI ST PAIN [id number] 08/07/2019 09:44:00 23:59:59 CLS Preadmit OTHER, UNLISTED [facility] RAD LUMBAR RADICULOPATHY [id number] 07/29/2019 19:22:00 20:38:00 DIS Emergency JEY DUNCAN, CRAIG Ozuna [facility] ER FS SOB,COUGH,CHEST TIGHTNE SS [id number] 07/20/2019 21:47:00 00:08:00 DIS Emergency LAMIN ADLER MD [facility] ER FS CHEST PAIN; SOB [id number] 07/18/2019 20:40:00 00:41:00 DIS Emergency LAMIN ADLER MD [facility] ER FS CHEST PAIN,SOB [id number] 07/16/2019 09:35:00 12:39:00 DIS Emergency ARISTEO COYNE DO [facility] ER FS HIGH BP [id number] 04/21/2019 16:10:00 07/07/2 019 19:15:00 DIS Emergency MILTON MD, NEHA Mejia [facility] ER FS CHEST PAIN [id number] 03/07/2019 18:40:00 20:00:00 DIS Emergency COYNE DO ARISTEO [facility] ER FS PAIN [id number] 03/04/2019 21:34:00 04:07:00 DIS Emergency CHARLOTTE GUTHRIE DO [facility] ER FS CHEST PAIN AROUND PACE MAKER [id number] 02/27/2019 19:29:00 23:32:00 DIS Emergency NAYELY DUNCAN, LAMIN Fox [facility] ER FS COUGH,DIZZY, CHEST PAIN , NAUSEA, RT EAR PAIN [id number] 01/10/2019 15:48:00 20:13:00 DIS Outpatient CHARLOTTE GUTHRIE DO [facility] ER FS CHEST PAIN, RT ARM NUMB [id number] 12/15/2018 13:56:00 13:56:00 CAN Preadmit NAYELY DUNCAN, LAMIN Pereira ia [facility] ER FS RT/LT HAND NUMBNESS
[2020-02-10 11:08] LABS: BACTERIA,URINE FEW /HPF; BILIRUBIN,URINE NEGATIVE (NEGATIVE); CLARITY,URINE SL CLOUDY; COLOR,URINE YELLOW; GLUCOSE, URINE (UA) NEGATIVE (NEGATIVE); KETONES,URINE NEGATIVE (NEGATIVE); LEUKOCYTE ESTERASE ,URINE NEGATIVE (NEGATIVE); NITRITE,URINE NEGATIVE (NEGATIVE); PROTEIN,URINE NEGATIVE (NEGATIVE); SQUAMOUS EPITHELIAL CELL,UR >50 /HPF
[2020-02-10 11:09] LABS: MAGNESIUM 1.8 MG/DL (1.6-2.4)
[2020-02-10 11:16] LABS: AMPHETAMINE SCREEN, URINE NEGATIVE (NEGATIVE); BARBITURATE SCREEN URINE NEGATIVE (NEGATIVE); BENZODIAZEPINES SCREEN URINE NEGATIVE (NEGATIVE); CANNABINOID SCREEN, URINE NEGATIVE (NEGATIVE); COCAINE SCREEN URINE NEGATIVE (NEGATIVE); METHADONE STAT NEGATIVE (NEGATIVE); METHAMPHETAMINE SCREEN URINE S NEGATIVE (NEGATIVE); OPIATE SCREEN URINE NEGATIVE (NEGATIVE); OXYCODONE STAT NEGATIVE (NEGATIVE); PROPOXYPHENE STAT NEGATIVE (NEGATIVE); TRICYCLIC ANTIDEPRESSANTS SCRE POSITIVE (NEGATIVE)
[2020-02-10 11:33] LABS: CALCIUM 8.2 MG/DL (8.5-10.1); CREATININE SERUM 1.5 MG/DL (0.60-1.30); POTASSIUM 2.9 MMOL/L (3.6-5.0)
[2020-02-10 11:34] LABS: ALBUMIN 3.8 GM/DL (3.2-4.5); BILIRUBIN,TOTAL 0.4 MG/DL (0.1-1.0); TOTAL PROTEIN 6.7 GM/DL (6.4-8.2)
[2020-02-10] MEDS ORDERED: NS IV 1000 ML 1,000 ML ONE (11:40)
[2020-02-10] MEDS ORDERED: NS IV 1000 ML 1,000 ML IV SCH (12:00)
[2020-02-10] MEDS ORDERED: KCL 20 MEQ TAB (K-DUR) PO ONE (12:00)
[2020-02-10 12:26] VITALS: BP 107/59
== END 2020-02-10 12:26 | disposition home or self-care (01) ==
LOC: EDUNIT# 10:28 → ER FS 10:30
DX: N17.9 Acute kidney failure, unspecified (principal); E87.6 Hypokalemia; E86.0 Dehydration; I10 Essential (primary) hypertension; I48.91 Unspecified atrial fibrillation; I25.2 Old myocardial infarction; E78.00 Pure hypercholesterolemia, unspecified; K21.9 Gastro-esophageal reflux disease without esophagitis; Z88.6 Allergy status to analgesic agent; Z91.041 Radiographic dye allergy status; Z77.22 Contact with and (suspected) exposure to environmental tobacco smoke (acute) (chronic); Z95.810 Presence of automatic (implantable) cardiac defibrillator; Z82.49 Family history of ischemic heart disease and other diseases of the circulatory system
CPT/HCPCS: 36415; 70450; 80053; 80306; 81000; 83735; 84484; 85025; 93005

== ENCOUNTER 2020-04-07 20:21 | Emergency (ER) | payer BC ==
[~2020-04-07] VITALS: Ht 170 cm; Wt 100.9 kg
--- NOTE | 2020-04-07 20:35 | ED Fall/Injury ---
General Stated Complaint: HAND INJ Source: patient, RN/MD, RN notes reviewed Exam Limitations: no limitations History of Present Illness Date Seen by Provider: Apr 07, 2020 Time Seen by Provider: 20:22 Initial Comments This patient is a 49-year-old female presents to the [facility] status post fall. Patient states she's given a bathtub and fell now has significant swelling and pain to left hand posteriorly. Patient also states she is unable to murmur or ring finger ring. Occurred: this evening Severity: moderate Injuries/Pain Location: upper extremity Loss of Consciousness: no loss of consciousness Allergies and Home Medications Allergies Coded Allergies: aspirin (Verified Allergy, Unknown, 03/07/19) latex (Verified Allergy, Unknown, 09/16/19) Home Medications Acetaminophen 500 Mg Tablet, 1,000 MG PO Q4H PRN for PAIN-MILD (1-4), (Reported) Albuterol Sulfate 1 Puff Puff, 2 PUFF INH Q4H PRN for SHORTNESS OF BREATH, (Reported) Amlodipine Besylate 10 Mg Tablet, 10 MG PO HS, (Reported) LAST FILLED #90 10-4-19 Clonidine HCl 0.1 Mg Tablet, 0.1 MG PO BID, (Reported) LAST FILLED #180 10-4-19 Cyclobenzaprine HCl 10 Mg Tablet, 10 MG PO BID PRN for MUSCLE SPASMS, (Reported) Diphenhydramine HCl 25 Mg Capsule, 50 MG PO HS PRN for SLEEP, (Reported) Fluoxetine HCl 20 Mg Capsule, 20 MG PO BID, (Reported) Lisinopril 20 Mg Tablet, 20 MG PO HS, (Reported) LAST FILLED #90 10-4-19 Metoprolol Succinate 50 Mg Tab.er.24h, 50 MG PO BID, (Reported) LAST FILLED #180 10-4-19 Pantoprazole Sodium 40 Mg Tablet.dr, 40 MG PO DAILY, (Reported) Spironolactone 25 Mg Tablet, 25 MG PO DAILY, (Reported) LAST FILLED #90 10-4-19 Sucralfate 1 Gm Tablet, 1 GM PO BID PRN for STOMACH UPSET, (Reported) Patient Home Medication List Home Medication List Reviewed: Yes Review of Systems Review of Systems Constitutional: No no symptoms reported; see HPI; No chills, No diaphoresis, No dizziness, No fever, No malaise, No weakness, No weight gain, No weight loss, No other Eyes: Denies No Symptoms Reported, Denies See HPI, Denies Blindness, Denies Blurred Vision, Denies Drainage, Denies Decreased Acuity, Denies Foreign Body Sensation, Denies Inflammation, Denies Pain, Denies Photophobia, Denies Previous Injury, Denies Shadows, Denies Tunnel Vision, Denies Vision Changes, Denies Contact Lenses, Denies Glasses, Denies Other Ears, Nose, Mouth, Throat: denies no symptoms reported, denies see HPI, denies ear pain, denies ear discharge, denies nose pain, denies nose discharge, denies epistaxis, denies mouth pain, denies mouth swelling, denies loose teeth, denies throat pain, denies throat swelling Respiratory: No no symptoms reported, No see HPI, No cough, No dyspnea on exertion, No hemoptysis, No orthopnea, No phlegm, No short of breath, No stridor, No wheezing, No other Cardiovascular: No no symptoms reported, No see HPI, No chest pain, No edema, No Hx of Intervention, No palpitations, No syncope, No vascular heart diseas, No other Gastrointestinal: No RUQ, No LUQ, No RLQ, No LLQ, No no symptoms reported, No see HPI, No abdominal pain, No constipation, No diarrhea, No dysphagia, No hematemesis, No heartburn, No jaundice, No loss of appetite, No melena, No nausea, No vomiting, No other Musculoskeletal: No no symptoms reported; see HPI; No back pain, No gout; joint pain; No joint swelling, No muscle pain, No muscle stiffness, No muscle cramps, No muscle twitching, No muscle weakness, No neck pain, No other Skin: No no symptoms reported, No see HPI, No change in color, No change in hair/nails, No dryness, No hx of skin cancer, No lesions, No lumps, No pruritus, No rash, No other Past Vlpnheu-Mfzjid-Ljwewg Hx Patient Social History Type Used: Cigarettes 2nd Hand Smoke Exposure: Yes Recent Foreign Travel: No Contact w/Someone Who Travel: No Recent Hopitalizations: No Immunizations Up To Date Tetanus Booster (TDap): Unknown Date of Pneumonia Vaccine: Aug 14, 2016 Date of Influenza Vaccine: Jul 15, 2019 Seasonal Allergies Seasonal Allergies: No Past Medical History Surgeries: Yes Defibrillator, Gallbladder, Hysterectomy, Pacemaker, 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 Respiratory: Yes (Tobaccoism) Cardiac: Yes (pacemaker/defib; a-fib) Atrial Fibrillation, Heart Attack, High Cholesterol, Hypertension Neurological: No 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 0oz. 90.773240dv; 31.00 BMI Method:Stated General Appearance: WD/WN, no apparent distress Neck: non-tender, full range of motion, supple, normal inspection Cardiovascular: normal peripheral pulses, regular rate, rhythm, no edema, no gallop, no JVD, no murmur Respiratory: chest non-tender, lungs clear, normal breath sounds, no respiratory distress, no accessory muscle use Extremities: swelling, other (significant pain to the posterior left hand with swelling.) Procedures/Interventions Using the string method was easily able to remove ring finger ring wedding band. Without difficulty. Patient tolerated procedure well. Progress/Results/Core Measures Results/Orders My Orders Orders - CLAUDIA DELEON MD Hand 3 View Left (04/07/20 20:32) Ice: Apply To Affected Area (04/07/20 20:32) Vital Signs/I&O 04/07/20 20:33 Temp 37.1 Pulse 102 Resp 18 B/P (MAP) 164/115 (131) Pulse Ox 97 O2 Delivery Room Air Progress Progress Note : Time: 20:55 Progress Note Negative evaluation by x-ray.. Extremities just soft tissue swelling and contusion to the hand. Rest ice elevation as instructed. Tylenol Motrin as needed for pain. Departure Impression Primary Impression: Contusion of hand Disposition: HOME, SELF-CARE Condition: Stable Departure-Patient Inst. Decision time for Depature: 20:55 Referrals: RICHARD HERMAN MD (PCP) Primary Care Physician Patient Instructions: Hand Pain (DC) Add. Discharge Instructions: Rest ice elevation as instructed. Tylenol Motrin as needed for pain. CLAUDIA DELEON MD Apr 07, 2020 20:35
--- NOTE | 2020-04-07 20:49 | Diagnostic Imaging Report ---
INDICATION: Hand pain after a fall EXAMINATION: Left hand 04/07/2020 FINDINGS: Three views of the hand demonstrate soft tissue prominence along the dorsum of the hand with no underlying fractures or dislocations appreciated. IMPRESSION: 1. No acute osseous abnormality. Dictated by: Dictated on workstation # [id number]
[2020-04-07 21:02] VITALS: BP 164/115
--- OUTSIDE RECORDS SUMMARY | 2020-04-07 22:19 | XMS REPORT | Continuity of Care Document ---
Author Organization Unknown Address Unknown Phone Unavailable Allergies Active Description Code Type Severity Reaction Onset Reported/Identified Relationship to Patient Clinical Status Yes aspirin [id number] Drug Allergy Unknown N/A 03/07/2019 Yes morphine [id number] Drug Allergy Unknown N/A 04/21/2019 Yes morphine [id number] Drug Allergy Unknown Pt has received 09/06/2019 Yes latex [id number] Drug Allergy Unknown N/A 09/16/2019 Medications There [...] 03/05/2019 CHARLOTTE GUTHRIE DO T Ot T82.198A [facility] COMPL OF OTHER CARDIAC ELECTRONIC [...] 03/06/2019 JERRI TALBERT, CHARLOTTE T Ot T82.198A [facility] COMPL OF OTHER CARDIAC ELECTRONIC [...] ARISTEO Ot I25.10 ATHSCL HEART DISEASE OF [place] CORONARY 03/07/2019 COYNE , ARISTEO Ot R10.31 [...] 03/10/2019 JERRI TALBERT, CHARLOTTE T Ot T82.198A [facility] COMPL OF OTHER CARDIAC ELECTRONIC D 03/10/2019 JERRI TALBERT, CHARLOTTE T Ot Z77. 22 CNTCT W AND EXPSR TO ENVIRON TOBACCO SMO 03/10/2019 [facility], CHARLOTTE T Ot Z88. 5 ALLERGY STATUS TO NARCOTIC AGENT STATUS 03/10/2019 JERRI TALBERT, CHARLOTTE T Ot Z88. 6 ALLERGY STATUS TO ANALGESIC AGENT STATUS 03/10/2019 JERRI TALBERT, CHARLOTTE T Ot Z95.810 PRESENCE OF AUTOMATIC (IMPLANTABLE) CARD 03/12/2019 DORETHA TALBERT, ARISTEO Ot I10 ESSENTIAL (PRIMARY) HYPERTENSION 03/12/2019 COYNE DO, ARISTEO Ot I25.10 ATHSCL HEART DISEASE OF [place] CORONARY 03/12/2019 COYNE DO, ARISTEO Ot R10.31 RIGHT LOWER QUADRANT PAIN 03/12/2019 COYNE DO, ARISTEO Ot Z77.22 CNTCT W AND EXPSR TO ENVIRON TOBACCO SMO 03/12/2019 COYNE DO, ARISTEO Ot Z88.5 ALLERGY STATUS TO NARCOTIC AGENT STATUS 03/12/2019 DORETHA TALBERT, ARISTEO Ot Z88.6 ALLERGY STATUS TO ANALGESIC AGENT STATUS 03/12/2019 [facility], ARISTEO Ot Z95.810 PRESENCE OF AUTOMATIC (IMPLANTABLE) CARD 03/12/2019 COYNE , ARISTEO Ot Z95.9 PRESENCE OF CARDIAC AND VASCULAR IMPLANT 04/21/2019 NEHA ROSE MD Ot F17.210 NICOTINE DEPENDENCE, CIGARETTES, UNCOMPL 04/21/2019 NEHA ROSE MD Ot I25. 10 ATHSCL HEART DISEASE OF [place] CORONARY 04/21/2019 NEHA ROSE MD Ot R07. [...] Ot I25. 10 ATHSCL HEART DISEASE OF [place] CORONARY 04/27/2019 NEHA ROSE MD Ot R07. [...] CNTCT W AND EXPSR TO ENVIRON TOBACCO [facility] 07/16/2019 [place], ARISTEO Ot Z88.5 ALLERGY STATUS TO NARCOTIC AGENT STATUS 07/16/2019 [place] DO, ARISTEO Ot Z88.6 ALLERGY STATUS TO ANALGESIC AGENT STATUS 07/16/2019 [place] DO, ARISTEO Ot Z90.710 ACQUIRED ABSENCE OF BOTH CERVIX AND UTER 07/16/2019 [place] DO, ARISTEO Ot Z95.810 PRESENCE OF AUTOMATIC (IMPLANTABLE) CARD 07/16/2019 [place] DO, ARISTEO Ot Z98.51 TUBAL LIGATION STATUS 07/18/2019 [place] DO, ARISTEO Ot I10 ESSENTIAL (PRIMARY) HYPERTENSION 07/18/2019 [place] DO, ARISTEO Ot I25.2 OLD MYOCARDIAL INFARCTION 07/18/2019 [place] DO, ARISTEO Ot R03.0 ELEVATED BLOOD-PRESSURE READING, W/O GHADA 07/18/2019 [place] DO, ARISTEO Ot R07.9 CHEST PAIN, UNSPECIFIED 07/18/2019 [place] DO, ARISTEO Ot Z77.22 CNTCT W AND EXPSR TO ENVIRON TOBACCO [facility] 07/18/2019 [place] DO, ARISTEO Ot Z88.5 ALLERGY STATUS TO NARCOTIC AGENT STATUS 07/18/2019 [place] DO, ARISTEO Ot Z88.6 ALLERGY STATUS TO ANALGESIC AGENT STATUS 07/18/2019 [place] DO, ARISTEO Ot Z90.710 ACQUIRED ABSENCE OF BOTH CERVIX AND UTER 07/18/2019 [place] DO, ARISTEO Ot Z95.810 PRESENCE OF AUTOMATIC (IMPLANTABLE) CARD 07/18/2019 [place] DO, ARISTEO Ot Z98.51 TUBAL LIGATION STATUS 07/19/2019 NAYELY DUNCAN, LAMIN Fox Ot G89.2 9 OTHER CHRONIC PAIN 07/19/2019 NAYELY DUNCAN, LAMIN oFx Ot I10 ESSENTIAL (PRIMARY) HYPERTENSION 07/19/2019 NAYELY [...] OF BOTH CERVIX AND UTER 07/24/2019 LAMIN DALER MD Ot Z95.8 10 PRESENCE OF AUTOMATIC [...] MD Ot I25.10 ATHSCL HEART DISEASE OF [place] CORONARY 09/06/2019 ALEXANDRE MATA MD, Ot I25.2 [...] ALEXANDRE MATA MD, Ot Z79.89 9 OTHER CARE HOME (CURRENT) DRUG THERAPY 09/06/2019 ALEXANDRE MATA MD, [...] 09/11/2019 CRAIG KHANNA MD A Ot T82.191A [facility] COMPL OF CARDIAC PULSE GENERATOR [...] 09/13/2019 CRAIG KHANNA MD A Ot T82.191A [facility] COMPL OF CARDIAC PULSE GENERATOR [...] MD, Ot I25.10 ATHSCL HEART DISEASE OF [place] CORONARY 09/16/2019 ALEXANDRE MATA MD, Ot I25.2 [...] ALEXANDRE MATA MD, Ot Z79.89 9 OTHER QUALITY CONTROL OPERATOR (CURRENT) DRUG THERAPY 09/16/2019 ALEXANDRE MATA MD, [...] 09/16/2019 ROVENSTINE DO, CHEVY L Ot T82.191A [facility] COMPL OF CARDIAC PULSE GENERATOR [...] WITHOUT 09/19/2019 CRAIG KHANNA MD Ot T82.191A [facility] COMPL OF CARDIAC PULSE GENERATOR [...] 09/21/2019 ROVENSTINE DO, CHEVY L Ot T82.191A [facility] COMPL OF CARDIAC PULSE GENERATOR [...] MD Ot Z91.040 LATEX ALLERGY STATUS 10/08/2019 KRUT TREJO MD Ot Z95.810 PRESENCE OF AUTOMATIC [...] UNSPECIFIED 10/12/2019 ROSANNE DUNN MD Ot T82.198A [facility] COMPL OF OTHER CARDIAC ELECTRONIC D 10/12/2019 ROSANNE DUNN MD Ot Z79.899 OTHER CARE HOME (CURRENT) DRUG THERAPY 10/12/2019 ROSANNE DUNN MD [...] UNSPECIFIED 10/12/2019 ROSANNE DUNN MD Ot T82.198A [facility] COMPL OF OTHER CARDIAC ELECTRONIC D 10/12/2019 ROSANNE DUNN MD Ot Z79.899 OTHER CARE HOME (CURRENT) DRUG THERAPY 10/12/2019 ROSANNE DUNN MD [...] F17.210 NICOTINE DEPENDENCE, CIGARETTES, UNCOMPL 10/14/2019 KURT TREOJ MD Ot I10 ESSENTIAL (PRIMARY) HYPERTENSION 10/14/2019 [...] Ot F17.200 NICOTINE DEPENDENCE, UNSPECIFIED, UNCOMP 10/24/2019 RSOANNE DUNN MD Ot G89.29 OTHER CHRONIC PAIN [...] UNSPECIFIED 10/24/2019 ROSANNE DUNN MD Ot T82.198A [facility] COMPL OF OTHER CARDIAC ELECTRONIC D 10/24/2019 ROSANNE DUNN MD Ot Z79.899 OTHER QUALITY CONTROL OPERATOR (CURRENT) DRUG THERAPY 10/24/2019 ROSANNE DUNN MD [...] I48.9 1 UNSPECIFIED ATRIAL FIBRILLATION 11/06/2019 LAMIN ADELR MD Ot J06.9 ACUTE UPPER RESPIRATORY INFECTION, [...] 11/18/2019 SINCERE LILLY MD Ot Z79. 82 QUALITY CONTROL OPERATOR (CURRENT) USE OF ASPIRIN 11/18/2019 SINCERE LILLY MD, Ot Z79.899 OTHER QUALITY CONTROL OPERATOR (CURRENT) DRUG THERAPY 11/18/2019 SINCERE LILLY MD, [...] PURE HYPERCHOLESTEROLEMIA, UNSPECIFIED 12/13/2019 ROVENSTINE DO, CHEVY L Ot F17.200 NICOTINE DEPENDENCE, UNSPECIFIED, UNCOMP 12/13/2019 ROVENSTINE DO, CHEVY L Ot I10 ESSENTIAL (PRIMARY) HYPERTENSION 12/13/2019 ROVENSTINE DO, CHEVY L Ot I25.2 OLD MYOCARDIAL INFARCTION 12/13/2019 ROVENSTINE DO, CHEVY L Ot I48.91 UNSPECIFIED ATRIAL FIBRILLATION 12/13/2019 ROVENSTINE DO, CHEVY L Ot J40 BRONCHITIS, NOT SPECIFIED ACUTE OR CH 12/13/2019 ROVENSTINE DO, CHEVY L Ot K21.9 GASTRO-ESOPHAGEAL REFLUX DISEASE WITHOUT 12/13/2019 [...] CHEVY Lezama Ot Z98.51 TUBAL LIGATION STATUS 02/10/2020 LOPEZ DO, TERESSA L Ot E78.0 0 PURE HYPERCHOLESTEROLEMIA, UNSPECIFIED 02/10/2020 LOPEZ DO, TERESSA L Ot E86.0 DEHYDRATION 02/10/2020 LOPEZ DO, TERESSA L Ot E87.6 HYPOKALEMIA 02/10/2020 LOPEZ DO, TERESSA L Ot I10 ESSENTIAL (PRIMARY) HYPERTENSION 02/10/2020 LOPEZ DO, TERESSA L Ot I25.2 OLD MYOCARDIAL INFARCTION 02/10/2020 LOPEZ DO, TERESSA L Ot I48.9 1 UNSPECIFIED ATRIAL FIBRILLATION 02/10/2020 LOPEZ DO, TERESSA L Ot K21.9 GASTRO-ESOPHAGEAL REFLUX DISEASE WITHOUT 02/10/2020 LOPEZ DO, TERESSA L Ot N17.9 ACUTE KIDNEY FAILURE, UNSPECIFIED 02/10/2020 LOPEZ DO, TERESSA L Ot Z77.2 2 CNTCT W AND EXPSR TO ENVIRON TOBACCO SMO 02/10/2020 LOPEZ DO, TERESSA L Ot Z82.4 9 FAMILY HX OF ISCHEM HEART DIS AND OTH DI 02/10/2020 LOPEZ DO, TERESSA L Ot Z88.6 ALLERGY STATUS TO ANALGESIC AGENT STATUS 02/10/2020 LOPEZ DO, TERESSA L Ot Z91.0 41 RADIOGRAPHIC DYE ALLERGY STATUS 02/10/2020 LOPEZ DO, TERESSA L Ot Z95.8 10 PRESENCE OF AUTOMATIC (IMPLANTABLE) CARD 02/10/2020 ALEXANDRE MATA MD Ot Z01.81 8 ENCOUNTER FOR OTHER PREPROCEDURAL EXAMIN 02/13/2020 LOPEZ DO, TERESSA L Ot E78.0 0 PURE HYPERCHOLESTEROLEMIA, UNSPECIFIED 02/13/2020 LOPEZ DO, TERESSA L Ot E86.0 DEHYDRATION 02/13/2020 LOPEZ DO, TERESSA L Ot E87.6 HYPOKALEMIA 02/13/2020 LOPEZ DO, TERESSA L Ot I10 ESSENTIAL (PRIMARY) HYPERTENSION 02/13/2020 LOPEZ DO, TERESSA L Ot I25.2 OLD MYOCARDIAL INFARCTION 02/13/2020 LOPEZ DO, TERESSA L Ot I48.9 1 UNSPECIFIED ATRIAL FIBRILLATION 02/13/2020 LOPEZ DO, TERESSA L Ot K21.9 GASTRO-ESOPHAGEAL REFLUX DISEASE WITHOUT 02/13/2020 LOPEZ DO, TERESSA L Ot N17.9 ACUTE KIDNEY FAILURE, UNSPECIFIED 02/13/2020 LOPEZ DO, TERESSA L Ot Z77.2 2 CNTCT W AND EXPSR TO ENVIRON TOBACCO SMO 02/13/2020 LOPEZ DO, TERESSA L Ot Z82.4 9 FAMILY HX OF ISCHEM HEART DIS AND OTH DI 02/13/2020 LOPEZ DO, TERESSA L Ot Z88.6 ALLERGY STATUS TO ANALGESIC AGENT STATUS 02/13/2020 LOPEZ DO, TERESSA L Ot Z91.0 41 RADIOGRAPHIC DYE ALLERGY STATUS 02/13/2020 LOPEZ DO, TERESSA L Ot Z95.8 10 PRESENCE OF AUTOMATIC (IMPLANTABLE) CARD Procedures There is no data. Results Test [...] CONSISTENT NRG Automated blood complete blood count ([facility]) panel - 01/10/19 16:00 Blood leukocytes automated [...] 03/03/19 12:05 NRG QUANTITY OF GROWTH Many [facility] [place] Bacterial sputum culture [id number] NR Complete blood count (CBC) with automate [...] NRG Blood microcytes detection by light microscopy [facility] Influenza virus A and B antigen detectio n - 11/17/19 20:52 FLU RESULT NEGATIVE FOR INFLUENZA A AND B ANTIGENS BY [facility] [place] Comprehensive metabolic panel - 11/17/19 20:52 Serum [...] 0.9 % NRG BASOPHILS 0.4 % NRG Complete blood count (CBC) with automate d white blood cell (WBC) differential - 02/10/20 10:35 Blood leukocytes automated count (number/volume) 10.2 10*3/uL 4.3-11.0 Blood erythrocytes automated count (number/volume) 3.70 10*6/uL 4.35-5.85 Venous blood hemoglobin measurement (mass/volume) 11.4 g/dL 11.5-16.0 Blood hematocrit (volume fraction) 34 % 35-52 Automated erythrocyte mean corpuscular volume 92 [ foz_us] 80-99 Automated erythrocyte mean corpuscular h emoglobin (mass per erythrocyte) 31 pg 25-34 Automated erythrocyte mean corpuscular h emoglobin concentration measurement (mass/volume) 34 g/dL 32-36 Automated erythrocyte distribution width ratio 14. 0 % 10.0- 14.5 Automated blood platelet count (count/volume) 272 10*3/uL 130-400 Automated blood platelet mean volume measurement 10.1 [foz_us] 7.4-10.4 Automated blood neutrophils/100 leukocytes 71 % 42-75 Automated blood lymphocytes/100 leukocytes 21 % 12-44 Blood monocytes/100 leukocytes 7 % 0-12 Automated blood eosinophils/100 leukocytes 1 % 0-10 Automated blood basophils/100 leukocytes 0 % 0-10 Blood neutrophils automated count (number/volume) 7.2 10*3 1.8-7.8 Blood lymphocytes automated count (number/volume) 2.1 10*3 1.0-4.0 Blood monocytes automated count (number/volume) 0. 8 10*3 0.0-1.0 Automated eosinophil count 0.1 10*3/uL 0 .0-0.3 Automated blood basophil count (count/volume) 0.0 10*3/uL 0.0-0.1 Magnesium - 02/10/20 10:35 Magnesium 1.8 mg/dL 1.6-2.4 TROPONIN I FS - 02/10/20 10:35 TROPONIN I FS < 0.30 <0.30 Comprehensive metabolic panel - 02/10/20 10:35 Serum or plasma sodium measurement (moles/volume) 137 mmol/L 135-145 Serum or plasma potassium measurement (moles/volume) 2.9 mmol/L 3.6-5.0 Serum or plasma chloride measurement (moles/volume) 97 mmol/L 98-107 Carbon dioxide 25 mmol/L 21-32 Serum or plasma anion gap determination (moles/volume) 15 mmol/L 5-14 Serum or plasma urea nitrogen measurement (mass/volume ) 21 mg/dL 7-18 Serum or plasma creatinine measurement (mass/volume) 1.50 mg/dL 0.60-1.30 Serum or plasma urea nitrogen/creatinine mass ratio 14 NRG Serum or plasma creatinine measurement w ith calculation of estimated glomerular filtration rate 37 NRG Serum or plasma glucose measurement (mass/volume) 114 mg/dL 70-105 Serum or plasma calcium measurement (mass/volume) 8.2 mg/dL 8.5-10.1 Serum or plasma total bilirubin measurement (mass/volu me) 0.4 mg/dL 0.1-1.0 Serum or plasma alkaline phosphatase eugene surement (enzymatic activity/volume) 132 U/L 40-136 Serum or plasma aspartate aminotransfera se measurement (enzymatic activity/volume) 11 U/L 5-34 Serum or plasma alanine aminotransferase measurement (enzymatic activity/volume) 9 U/L 0-55 Serum or plasma protein measurement (mass/volume) 6.7 g/dL 6.4-8.2 Serum or plasma albumin measurement (mass/volume) 3.8 g/dL 3.2-4.5 CALCIUM CORRECTED 8.4 mg/dL 8.5-10.1 Complete urinalysis with reflex to cultu re - 02/10/20 10:50 Urine color determination YELLOW NRG Urine clarity determination SL CLOUDY N RG Urine pH measurement by test strip 6.0 [...] by automated test strip (mass/volume) 0.2 mg/dL < = 1.0 Urine leukocyte esterase [...] detection in urine sediment by light microscopy LARGE NRG Complete urinalysis with reflex to culture NO NRG Urine drug screening test - 02/10/20 10: 50 Urine phencyclidine detection by screening method NEGATIVE NEGATIVE Urine benzodiazepines detection by screening method NEGATIVE NEGATIVE Urine cocaine detection NEGATIVE NEGATI VE Urine amphetamines detection by screening method N EGATIVE NEGATIVE Urine methamphetamine detection by screening method NEGATIVE NEGATIVE Urine cannabinoids detection by screening method N EGATIVE NEGATIVE Urine opiates detection by screening method NEGATI VE NEGATIVE Urine barbiturates detection NEGATIVE N EGATIVE Screening urine tricyclic antidepressants detection POSITIVE NEGATIVE Urine methadone detection by screening method NEGA TIVE NEGATIVE Urine oxycodone detection NEGATIVE NEGA TIVE Urine propoxyphene detection NEGATIVE N EGATIVE Encounters ACCT No. Visit Date/Time Discharge Status Pt. Type Provider Facility Loc./Unit Complaint [id number] 02/11/2020 16:00:00 02/11/2020 23:59:[address] [facility] Outpatient RICHARD HERMAN [facility] [id number] 01/09/2020 15:40:00 Document Registration [id number] 07/09/2019 13:00:00 Document Registration [id number] 01/08/2019 11:40:00 Document Registration [id number] 02/10/2020 10:30:00 12:26:00 DIS Emergency TERESSA LOPEZ DO [facility] ER FS STROKE SYMPTOMS [id number] 12/11/2019 16:28:00 18:34:00 DIS Emergency SAMARAVENSTCHEVY NINO DO [facility] ER FS CHEST TIGHTNESS ,HIGH BLOOD PRESSURE,SOB [id number] 11/17/2019 23:45:00 11:32:00 DIS Inpatient MAXX DUNCAN, SINCERE Portillo [facility] ICU PACEMAKER WENT OFF [id number] 11/03/2019 17:44:00 19:06:00 DIS Emergency LAMIN ADLER MD [facility] ER FS VOMITING,COUGH,SOB [id number] 10/20/2019 21:45:00 23:32:00 DIS Emergency JEAN PAUL LIRIANO MD [facility] ER FS CHEST PAIN/RIGHT ARM PA IN [id number] 10/11/2019 06:00:00 11:49:00 DIS Inpatient ROSANNE DUNN MD [facility] CSD CHEST PAIN,NEAR SYNCOPE,DEFRIBRILLATOR FIRING [id number] 10/10/2019 15:11:00 16:00:00 DIS Emergency MILTON DUNCAN, NEHA Mejia [facility] ER FS RT HAND WOUND CHECK [id number] 10/08/2019 18:38:00 20:25:00 DIS Emergency NAYELY DUNCAN, LAMIN Fox [facility] ER FS R HAND BURN [id number] 10/08/2019 02:03:00 03:37:00 DIS Emergency MAYA DUNCAN, KURT Bradford [facility] ER FS HYPENTENSION [id number] 10/07/2019 15:09:00 16:45:00 DIS Emergency MAYA DUNCAN, KURT Bradford [facility] ER FS CHEST PAIN/SOA [id number] 10/05/2019 21:02:00 22:28:00 DIS Emergency DEANDRA DUNCAN, JEAN PAUL Lezama [facility] ER FS CHEST PAIN/SOB [id number] 10/03/2019 20:20:00 22:28:00 DIS Emergency CLAUDIA RYAN DO [facility] ER FS CHEST PAIN [id number] 09/16/2019 16:26:00 18:14:00 DIS Emergency SAMARAVENSTCHEVY NINO DO [facility] ER FS PACE MAKER ISSU E [id number] 09/11/2019 19:21:00 21:55:00 DIS Emergency JEY DUNCAN, CRAIG Ozuna [facility] ER FS IRR HEART RATE [id number] 09/08/2019 17:50:00 18:56:00 DIS Emergency MCKENNA SOLANO MD [facility] ER FS BACK PAIN [id number] 09/06/2019 11:14:00 14:16:00 DIS Outpatient ALEXANDRE MATA MD [facility] ENDO ESOPHAGEAL MASS PER CT/ COUGH [id number] 09/02/2019 05:47:00 23:59:59 CLS Outpatient ALEXANDRE MATA MD [facility] PREOP EGD [id number] 08/13/2019 23:45:00 18:08:00 DIS Inpatient CHRIS DUNCAN, MARIAJOSE Gimenez [facility] 4TH ACS1 ELEV TROPONIN, TASHI ST PAIN [id number] 08/07/2019 09:44:00 23:59:59 CLS Preadmit OTHER, UNLISTED [facility] RAD LUMBAR RADICULOPATHY [id number] 07/29/2019 19:22:00 20:38:00 DIS Emergency CRAIG KHANNA MD [facility] ER FS SOB,COUGH,CHEST TIGHTNE SS [id number] 07/20/2019 21:47:00 00:08:00 DIS Emergency LAMIN ADLER MD [facility] ER FS CHEST PAIN; SOB [id number] 07/18/2019 20:40:00 00:41:00 DIS Emergency LAMIN ADLER MD [facility] ER FS CHEST PAIN,SOB [id number] 07/16/2019 09:35:00 12:39:00 DIS Emergency ARISTEO COYNE DO [facility] ER FS HIGH BP [id number] 04/21/2019 16:10:00 19:15:00 DIS Emergency NEHA ROSE MD [facility] ER FS CHEST PAIN [id number] 03/07/2019 18:40:00 20:00:00 DIS Emergency ARISTEO COYNE DO [facility] ER FS PAIN [id number] 03/04/2019 21:34:00 04:07:00 DIS Emergency CHARLOTTE GUTHRIE DO [facility] ER FS CHEST PAIN AROUND PACE MAKER [id number] 02/27/2019 19:29:00 23:32:00 DIS Emergency NAYELY DUNCAN, LAMIN [facility] FS COUGH,DIZZY, CHEST PAIN , NAUSEA, RT EAR PAIN [id number] 01/10/2019 15:48:00 20:13:00 DIS Outpatient CHARLOTTE GUTHRIE DO [facility] CHEST PAIN, RT ARM NUMB [id number] 12/15/2018 13:56:00 13:56:00 CAN Preadmit NAYELY DUNCAN, LAMIN [facility] FS RT/LT HAND NUMBNESS
== END 2020-04-07 21:03 | disposition home or self-care (01) ==
LOC: EDUNIT# 20:21 → ER FS 20:22
DX: S60.222A Contusion of left hand, initial encounter (principal); I10 Essential (primary) hypertension; I25.2 Old myocardial infarction; K21.9 Gastro-esophageal reflux disease without esophagitis; G89.29 Other chronic pain; M54.9 Dorsalgia, unspecified; Z91.040 Latex allergy status; Z77.22 Contact with and (suspected) exposure to environmental tobacco smoke (acute) (chronic); Z23 Encounter for immunization; Z88.6 Allergy status to analgesic agent; Z95.810 Presence of automatic (implantable) cardiac defibrillator; Z82.49 Family history of ischemic heart disease and other diseases of the circulatory system; W18.2XXA Fall in (into) shower or empty bathtub, initial encounter
CPT/HCPCS: 73130

== ENCOUNTER 2020-04-08 19:18 | Emergency (ER) | payer BC ==
[~2020-04-08] VITALS: Ht 170 cm; Wt 100.9 kg
--- OUTSIDE RECORDS SUMMARY | 2020-04-08 19:26 | XMS REPORT | Continuity of Care Document ---
Author Organization Unknown Address Unknown Phone Unavailable Allergies Active Description Code Type Severity Reaction Onset Reported/Identified Relationship to Patient Clinical Status Yes aspirin [id number] Drug Allergy Unknown N/A 03/07/2019 Yes morphine [id number] Drug Allergy Unknown N/A 04/21/2019 Yes morphine [id number] Drug Allergy Unknown Pt has received 09/06/2019 Yes latex [id number] Drug Allergy Unknown N/A 09/16/2019 Medications There [...] 03/05/2019 CHARLOTTE GUTHRIE DO T Ot T82.198A [facility] COMPL OF OTHER CARDIAC ELECTRONIC D [...] 03/06/2019 JERRI TALBERT, CHARLOTTE T Ot T82.198A [facility] COMPL OF OTHER CARDIAC ELECTRONIC D [...] ARISTEO Ot I25.10 ATHSCL HEART DISEASE OF [place] CORONARY 03/07/2019 COYNE , ARISTEO Ot R10.31 [...] 03/10/2019 JERRI TALBERT, CHARLOTTE T Ot T82.198A [facility] COMPL OF OTHER CARDIAC ELECTRONIC D 03/10/2019 JERRI TALBERT, CHARLOTTE T Ot Z77. 22 CNTCT W AND EXPSR TO ENVIRON TOBACCO SMO 03/10/2019 [facility], CHARLOTTE T Ot Z88. 5 ALLERGY STATUS TO NARCOTIC AGENT STATUS 03/10/2019 JERRI TALBERT, CHARLOTTE T Ot Z88. 6 ALLERGY STATUS TO ANALGESIC AGENT STATUS 03/10/2019 JERRI TALBERT, CHARLOTTE T Ot Z95.810 PRESENCE OF AUTOMATIC (IMPLANTABLE) CARD 03/12/2019 DORETHA TALBERT, ARISTEO Ot I10 ESSENTIAL (PRIMARY) HYPERTENSION 03/12/2019 COYNE DO, ARISTEO Ot I25.10 ATHSCL HEART DISEASE OF [place] CORONARY 03/12/2019 COYNE DO, ARISTEO Ot R10.31 RIGHT LOWER QUADRANT PAIN 03/12/2019 COYNE DO, ARISTEO Ot Z77.22 CNTCT W AND EXPSR TO ENVIRON TOBACCO SMO 03/12/2019 COYNE DO, ARISTEO Ot Z88.5 ALLERGY STATUS TO NARCOTIC AGENT STATUS 03/12/2019 DORETHA TALBERT, ARISTEO Ot Z88.6 ALLERGY STATUS TO ANALGESIC AGENT STATUS 03/12/2019 [facility], ARISTEO Ot Z95.810 PRESENCE OF AUTOMATIC (IMPLANTABLE) CARD 03/12/2019 COYNE , ARISTEO Ot Z95.9 PRESENCE OF CARDIAC AND VASCULAR IMPLANT 04/21/2019 NEHA ROSE MD Ot F17.210 NICOTINE DEPENDENCE, CIGARETTES, UNCOMPL 04/21/2019 NEHA ROSE MD Ot I25. 10 ATHSCL HEART DISEASE OF [place] CORONARY 04/21/2019 NEHA ROSE MD Ot R07. [...] Ot I25. 10 ATHSCL HEART DISEASE OF [place] CORONARY 04/27/2019 NEHA ROSE MD Ot R07. [...] EXPSR TO EN[place]IRON [place]BACCO [facility] [place]/16/2019 HILLMAN DO, ARISTEO Ot Z88.5 ALLERGY STATUS TO NARCOTIC AGENT STATUS 07/16/2019 COYNE DO, ARISTEO Ot Z88.6 ALLERGY STATUS TO ANALGESIC AGENT STATUS 07/16/2019 [facility]ILLMAN DO, ARISTEO Ot Z90.710 ACQUIRED ABSENCE OF BOTH CERVIX AND UTER 07/16/2019 [facility]ILLMAN DO, ARISTEO Ot Z95.810 PRESENCE OF AUTOMATIC (IMPLANTABLE) CARD 07/16/2019 HILLMAN DO, ARISTEO Ot Z98.51 TUBAL LIGATION STATUS 07/18/2019 HILLMAN DO, ARISTEO Ot I10 ESSENTIAL (PRIMARY) HYPERTENSION 07/18/2019 HILLMAN DO, ARISTEO Ot I25.2 OLD MYOCARDIAL INFARCTION 07/18/2019 HILLMAN DO, ARISTEO Ot R03.0 ELEVATED BLOOD-PRESSURE READING, W/O GHADA 07/18/2019 HILLMAN DO, ARISTEO Ot R07.9 CHEST PAIN, UNSPECIFIED 07/18/2019 HILLMAN DO, ARISTEO Ot Z77.22 CNTCT W AND EXPSR TO EN[place]IRON [place]BACCO [facility] [place]/18/2019 HILLMAN DO, ARISTEO Ot Z88.5 ALLERGY STATUS TO NARCOTIC AGENT STATUS 07/18/2019 HILLMAN DO, ARISTEO Ot Z88.6 ALLERGY STATUS TO ANALGESIC AGENT STATUS 07/18/2019 HILLMAN DO, ARISTEO Ot Z90.710 ACQUIRED ABSENCE OF BOTH CERVIX AND UTER 07/18/2019 HILLMAN DO, ARISTEO Ot Z95.810 PRESENCE OF AUTOMATIC [...] R07.9 CHEST PAIN, UNSPECIFIED 07/25/2019 COYNE DO, AIRSTEO Ot Z77.22 CNTCT W AND EXPSR TO [...] MD Ot I25.10 ATHSCL HEART DISEASE OF [place] CORONARY 09/06/2019 ALEXANDRE MATA MD, Ot I25.2 [...] ALEXANDRE MATA MD, Ot Z79.89 9 OTHER PRISON (CURRENT) DRUG THERAPY 09/06/2019 ALEXANDRE MATA MD, [...] ABSENCE OF BOTH CERVIX AND UTER 09/06/2019 LAEXANDRE MATA MD, Ot Z95.81 0 PRESENCE OF [...] 09/11/2019 CRAIG KHANNA MD A Ot T82.191A [facility] COMPL OF CARDIAC PULSE GENERATOR (B [...] 09/13/2019 CRAIG KHANNA MD A Ot T82.191A [facility] COMPL OF CARDIAC PULSE GENERATOR (B [...] MD, Ot I25.10 ATHSCL HEART DISEASE OF [place] CORONARY 09/16/2019 ALEXANDRE MATA MD, Ot I25.2 [...] ALEXANDRE MATA MD, Ot Z79.89 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 09/16/2019 ALEXANDRE MATA MD, [...] 09/16/2019 ROVENSTINE DO, CHEVY L Ot T82.191A [facility] COMPL OF CARDIAC PULSE GENERATOR (B [...] WITHOUT 09/19/2019 CRAIG KHANNA MD Ot T82.191A [facility] COMPL OF CARDIAC PULSE GENERATOR (B [...] 09/21/2019 ROVENSTINE DO, CHEVY L Ot T82.191A [facility] COMPL OF CARDIAC PULSE GENERATOR (B [...] I25 .2 OLD MYOCARDIAL INFARCTION 10/03/2019 CONNOR TALBERTLCAUDIA Ot K21 .9 GASTRO-ESOPHAGEAL REFLUX DISEASE WITHOUT 10/03/2019 CONNOR TALBERTCLAUDIA Ot R07.89 OTHER CHEST PAIN 10/03/2019 CONNOR TALBERTCLAUDIA Ot R07 .9 CHEST PAIN, UNSPECIFIED 10/03/2019 CONNOR TALBERTCLAUDIA Ot Z77.22 CNTCT W AND EXPSR TO ENVIRON TOBACCO SMO 10/03/2019 CONNOR ATLBERTCLAUDIA Ot Z88 .5 ALLERGY STATUS TO NARCOTIC [...] K21.9 GASTRO-ESOPHAGEAL REFLUX DISEASE WITHOUT 10/10/2019 KURT RTEJO MD Ot R07.2 PRECORDIAL PAIN 10/10/2019 KURT [...] UNSPECIFIED 10/12/2019 ROSANNE DUNN MD Ot T82.198A [facility] COMPL OF OTHER CARDIAC ELECTRONIC D 10/12/2019 ROSANNE DUNN MD Ot Z79.899 OTHER PRISON (CURRENT) DRUG THERAPY 10/12/2019 ROSANNE DUNN MD [...] UNSPECIFIED 10/12/2019 ROSANNE DUNN MD Ot T82.198A [facility] COMPL OF OTHER CARDIAC ELECTRONIC D 10/12/2019 ROSANNE DUNN MD Ot Z79.899 OTHER PRISON (CURRENT) DRUG THERAPY 10/12/2019 ROSANNE DUNN MD [...] F17.200 NICOTINE DEPENDENCE, UNSPECIFIED, UNCOMP 10/24/2019 ROSANNE DNUN MD Ot G89.29 OTHER CHRONIC PAIN 10/24/2019 [...] UNSPECIFIED 10/24/2019 ROSANNE DUNN MD Ot T82.198A [facility] COMPL OF OTHER CARDIAC ELECTRONIC D 10/24/2019 ROSANNE DUNN MD Ot Z79.89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 82 ROTARY DRILLER (CURRENT) USE OF ASPIRIN 11/18/2019 SINCERE LILLY MD, Ot Z79.89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 11/18/2019 SINCERE LILLY MD, [...] CONSISTENT NRG Automated blood complete blood count ([facility]) panel - 01/10/19 16:00 Blood leukocytes automated [...] 12:05 NRG QUANTITY OF GROWTH Many [facility] Bacterial sputum culture [id number] NR Complete blood count (CBC) with automate [...] NRG Blood microcytes detection by light microscopy [facility] Influenza virus A and B antigen detectio n - 11/17/19 20:52 FLU RESULT NEGATIVE FOR INFLUENZA A AND B ANTIGENS BY IA [facility] Comprehensive metabolic panel - 11/17/19 20:52 Serum [...] Status Pt. Type Provider Facility Loc./Unit Complaint [id number] 02/11/2020 16:00:00 02/11/2020 23:59:5 9 [facility] Outpatient RICHARD HERMAN [facility] [id number] 01/09/2020 15:40:00 Document Registration [id number] 07/09/2019 13:00:00 Document Registration [id number] 01/08/2019 11:40:00 Document Registration [id number] 04/07/2020 20:22:00 21:03:00 DIS Emergency PANCHO DUNCAN, CLAUDIA Case [facility] ER FS HAND INJ [id number] 02/10/2020 10:30:00 12:26:00 DIS Emergency TERESSA LOPEZ DO [facility] ER FS STROKE SYMPTOMS [id number] 12/11/2019 16:28:00 18:34:00 DIS Emergency ROVENSTINE CHEVY TALBERT [facility] ER FS CHEST TIGHTNESS ,HIGH BLOOD PRESSURE,SOB [id number] 11/17/2019 23:45:00 11:32:00 DIS Inpatient MAXX DUNCAN, SINCERE Portillo [facility] ICU PACEMAKER WENT OFF [id number] 11/03/2019 17:44:00 19:06:00 DIS Emergency LAMIN ADLER MD [facility] ER FS VOMITING,COUGH,SOB [id number] 10/20/2019 21:45:00 23:32:00 DIS Emergency JEAN PAUL LIRIANO MD [facility] ER FS CHEST PAIN/RIGHT ARM PA IN [id number] 10/11/2019 06:00:00 11:49:00 DIS Inpatient SHAUN DUNCAN, ROSANNE Caicedo [facility] CSD CHEST PAIN,NEAR SYNCOPE,DEFRIBRILLATOR FIRING [id number] 10/10/2019 15:11:00 16:00:00 DIS Emergency MILTON DUNCAN, NEHA Mejia [facility] ER FS RT HAND WOUND CHECK [id number] 10/08/2019 18:38:00 20:25:00 DIS Emergency NAYELY DUNCAN, LAMIN Fox [facility] ER FS R HAND BURN [id number] 10/08/2019 02:03:00 03:37:00 DIS Emergency MAYA DUNCAN, KURT Bradford [facility] ER FS HYPENTENSION [id number] 10/07/2019 15:09:00 16:45:00 DIS Emergency MAYA DUNCAN, KURT Bradford [facility] ER FS CHEST PAIN/SOA [id number] 10/05/2019 21:02:00 22:28:00 DIS Emergency JEAN PAUL LIRIANO MD [facility] ER FS CHEST PAIN/SOB [id number] 10/03/2019 20:20:00 22:28:00 DIS Emergency CLAUDIA RYAN DO [facility] ER FS CHEST PAIN [id number] 09/16/2019 16:26:00 18:14:00 DIS Emergency ROVENSTCHEVY NINO DO [facility] ER FS PACE MAKER ISSU E [id number] 09/11/2019 19:21:00 21:55:00 DIS Emergency CRAIG KHANNA MD [facility] ER FS IRR HEART RATE [id number] 09/08/2019 17:50:00 18:56:00 DIS Emergency MCKENNA SOLANO MD [facility] ER FS BACK PAIN [id number] 09/06/2019 11:14:00 14:16:00 DIS Outpatient ALEXANDRE MATA MD [facility] ENDO ESOPHAGEAL MASS PER CT/ COUGH [id number] 09/02/2019 05:47:00 23:59:59 CLS Outpatient ALEXANDRE MATA MD [facility] PREOP EGD [id number] 08/13/2019 23:45:00 18:08:00 DIS Inpatient CHRIS DUNCAN, MARIAJOSE Gimenez [facility] 4TH ACS1 ELEV TROPONIN, TASHI ST PAIN [id number] 08/07/2019 09:44:00 23:59:59 CLS Preadmit OTHER, UNLISTED [facility] RAD LUMBAR RADICULOPATHY [id number] 07/29/2019 19:22:00 20:38:00 DIS Emergency CRAIG KHANNA MD [facility] ER FS SOB,COUGH,CHEST TIGHTNE SS [id number] 07/20/2019 21:47:00 00:08:00 DIS Emergency LAMIN ADLER MD [facility] ER FS CHEST PAIN; SOB [id number] 07/18/2019 20:40:00 00:41:00 DIS Emergency LAMIN ADLER MD [facility] ER FS CHEST PAIN,SOB [id number] 07/16/2019 09:35:00 12:39:00 DIS Emergency ARISTEO COYNE DO [facility] ER FS HIGH BP [id number] 04/21/2019 16:10:00 19:15:00 DIS Emergency NEHA ROSE MD [facility] ER FS CHEST PAIN [id number] 03/07/2019 18:40:00 20:00:00 DIS ARISTEO Whiteside DO [facility] ER FS PAIN [id number] 03/04/2019 21:34:00 04:07:00 DIS Emergency CHARLOTTE GUTHRIE DO [facility] ER FS CHEST PAIN AROUND PACE MAKER [id number] 02/27/2019 19:29:00 23:32:00 DIS Emergency LAMIN ADLER MD [facility] ER FS COUGH,DIZZY, CHEST PAIN , NAUSEA, RT EAR PAIN [id number] 01/10/2019 15:48:00 20:13:00 DIS Outpatient CHARLOTTE GUTHRIE DO [facility] ER FS CHEST PAIN, RT ARM NUMB [id number] 12/15/2018 13:56:00 13:56:00 CAN Preadmit NAYELY DUNCAN, LAMIN martell [facility] ER FS RT/LT HAND NUMBNESS
--- NOTE | 2020-04-08 19:47 | ED Upper Extremity ---
General Chief Complaint: Upper Extremity Stated Complaint: HAND LACERATION/FELL Source: patient Exam Limitations: no limitations History of Present Illness Date Seen by Provider: Apr 08, 2020 Time Seen by Provider: 19:47 Initial Comments 49-year-old female with a small laceration in the back of her left hand. Patient fell last night and then again today. She was seen last night with negative x- rays. She fell today and thinks she hit either piece of glass or maybe some concrete. There is no increased swelling or pain however there is a small 1.5 cm laceration with some abrasions around the laceration site. There is mild bleeding. She no significant change from her prior fall with some swelling to the hand. Allergies and Home Medications Allergies Coded Allergies: aspirin (Verified Allergy, Unknown, 03/07/19) latex (Verified Allergy, Unknown, 09/16/19) Home Medications Acetaminophen 500 Mg Tablet, 1,000 MG PO Q4H PRN for PAIN-MILD (1-4), (Reported) Albuterol Sulfate 1 Puff Puff, 2 PUFF INH Q4H PRN for SHORTNESS OF BREATH, (Reported) Amlodipine Besylate 10 Mg Tablet, 10 MG PO HS, (Reported) LAST FILLED #90 10-4-19 Clonidine HCl 0.1 Mg Tablet, 0.1 MG PO BID, (Reported) LAST FILLED #180 10-4-19 Cyclobenzaprine HCl 10 Mg Tablet, 10 MG PO BID PRN for MUSCLE SPASMS, (Reported) Diphenhydramine HCl 25 Mg Capsule, 50 MG PO HS PRN for SLEEP, (Reported) Fluoxetine HCl 20 Mg Capsule, 20 MG PO BID, (Reported) Lisinopril 20 Mg Tablet, 20 MG PO HS, (Reported) LAST FILLED #90 10-4-19 Metoprolol Succinate 50 Mg Tab.er.24h, 50 MG PO BID, (Reported) LAST FILLED #180 10-4-19 Pantoprazole Sodium 40 Mg Tablet.dr, 40 MG PO DAILY, (Reported) Spironolactone 25 Mg Tablet, 25 MG PO DAILY, (Reported) LAST FILLED #90 10-4-19 Sucralfate 1 Gm Tablet, 1 GM PO BID PRN for STOMACH UPSET, (Reported) Patient Home Medication List Home Medication List Reviewed: Yes Review of Systems Constitutional: no symptoms reported Respiratory: no symptoms reported Cardiovascular: no symptoms reported Gastrointestinal: no symptoms reported Genitourinary: no symptoms reported Musculoskeletal: see HPI Skin: see HPI Psychiatric/Neurological: No Symptoms Reported Past Ktenori-Abyqst-Ffxskj Hx Past Med/Social Hx: Reviewed Nursing Past Med/Soc Hx Patient Social History Type Used: Cigarettes 2nd Hand Smoke Exposure: Yes Recent Foreign Travel: No Contact w/Someone Who Travel: No Recent Hopitalizations: No Immunizations Up To Date Tetanus Booster (TDap): Unknown Date of Pneumonia Vaccine: Aug 14, 2016 Date of Influenza Vaccine: Jul 15, 2019 Seasonal Allergies Seasonal Allergies: No Past Medical History Surgeries: Yes Defibrillator, Gallbladder, Hysterectomy, Pacemaker, 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 Respiratory: Yes (Tobaccoism) Cardiac: Yes (pacemaker/defib; a-fib) Atrial Fibrillation, Heart Attack, High Cholesterol, Hypertension 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 0oz. 90.034614dd; 34.00 BMI Method:Stated General Appearance: WD/WN, no apparent distress HEENT: PERRL/EOMI Neck: full range of motion, supple Cardiovascular: normal peripheral pulses, regular rate, rhythm Respiratory: lungs clear, normal breath sounds Gastrointestinal: non tender, soft Back: normal inspection Shoulder: normal inspection Elbow/Forearm: normal inspection Wrist: Yes soft tissue tenderness, Yes swelling Hand: laceration, soft tissue tenderness, swelling Neurologic/Psychiatric: nursing home admissions director II-XII nml as tested, alert, normal mood/affect, oriented x 3 Skin: normal color, warm/dry, other (1.5 cm laceration with surrounding abrasions) Procedures/Interventions Wound Location: Upper Extremities Other Wound Location Dorsum of left hand Wound Length (cm): 1.5 Wound's Depth, Shape: superficial, linear Wound Explored: clean Other Closure Supply: Steri Strip /" (4), Wound Adhesive Progress Patient tolerated well with close approximation. Progress/Results/Core Measures Results/Orders My Orders Orders - TERESSA LOPEZ DO Dipht,Pertuss(Acell),Tet Adult (Boostrix (04/08/20 20:00) Toradol 60 Mg Im (04/08/20 19:56) Vital Signs/I&O 04/08/20 19:45 Temp 36.2 Pulse 121 Resp 18 B/P (MAP) 176/121 (139) Pulse Ox 96 O2 Delivery Room Air Departure Impression Primary Impression: Laceration of left hand Qualified Codes: S61.412A - Laceration without foreign body of left hand, initial encounter Additional Impression: Contusion of left hand Qualified Codes: S60.222A - Contusion of left hand, initial encounter Disposition: 01 HOME, SELF-CARE Condition: Stable Departure-Patient Inst. Referrals: RICHARD HERMAN MD (PCP/Family) Primary Care Physician Patient Instructions: Contusion (DC), Laceration Repair With Glue (DC) Add. Discharge Instructions: Follow-up with your primary care provider in 7-10 days if no improvement for repeat x-ray of the one that was obtained in last night's visit All discharge instructions reviewed with patient and/or family. Voiced understanding. TERESSA LOPEZ DO Apr 08, 2020 19:47
[2020-04-08] MEDS ORDERED: KETOROLAC 60 MG/2 ML VIAL IM STA (19:56)
[2020-04-08] MEDS ORDERED: TETANUS,DIPTH,PERTUSS P/F (BOOSTRIX) 0.5 ML VIAL IM ONE (20:00)
[2020-04-08 20:05] VITALS: BP 177/114
== END 2020-04-08 20:05 | disposition home or self-care (01) ==
LOC: EDUNIT# 19:18 → ER FS 19:20
DX: S61.412A Laceration without foreign body of left hand, initial encounter (principal); I10 Essential (primary) hypertension; I25.2 Old myocardial infarction; K21.9 Gastro-esophageal reflux disease without esophagitis; G89.29 Other chronic pain; M54.9 Dorsalgia, unspecified; Z88.6 Allergy status to analgesic agent; Z91.040 Latex allergy status; Z77.22 Contact with and (suspected) exposure to environmental tobacco smoke (acute) (chronic); Z95.810 Presence of automatic (implantable) cardiac defibrillator; Z82.49 Family history of ischemic heart disease and other diseases of the circulatory system; Z91.81 History of falling; Z23 Encounter for immunization; W19.XXXA Unspecified fall, initial encounter
CPT/HCPCS: 90715; 99284

== ENCOUNTER 2020-04-27 17:25 | Emergency (ER) | payer BC ==
[~2020-04-27] VITALS: Ht 170.2 cm; Wt 101.3 kg
--- NOTE | 2020-04-27 18:39 | ED Upper Extremity ---
General Chief Complaint: Upper Extremity Stated Complaint: CELLULITUS IN FOREARM Nursing Triage Note: Patient reports she fell 3 weeks ago and injured her left forearm. She states she has had multiple x-rays of the arm that have been negative for any acute fracture. She states she has seen her PCP several times and has taken 2 different antibiotics prescriptions for presumed cellulitis of her arm, but her forearm has continued to swell and she has continued pain. Nursing Sepsis Screen: No Definite Risk History of Present Illness Date Seen by Provider: Apr 27, 2020 Time Seen by Provider: 18:00 Initial Comments This patient presents to the emergency department with complaint left arm pain states this is been going on for about a month. Patient does have swelling to the posterior aspect of the left forearm. Patient states that she was also thought it was cellulitis after she fell on her arm patient states she's had a total of 12 x-rays have all been negative for any acute findings. Patient was not wearing a splint. Patient's arm is swollen but does not have any erythema. Patient states still complaining of the pain difficult to move. Patient has not been wearing a splint and has not been following rest past compression or elevation. Patient's that she needs additional medications for pain. Patient does not appear to be in acute pain at this time. Onset: other (one month) Pain/Injury Location: left forearm, left wrist Allergies and Home Medications Allergies Coded Allergies: aspirin (Verified Allergy, Unknown, 03/07/19) latex (Verified Allergy, Unknown, 09/16/19) Home Medications Acetaminophen 500 Mg Tablet, 1,000 MG PO Q4H PRN for PAIN-MILD (1-4), (Reported) Albuterol Sulfate 1 Puff Puff, 2 PUFF INH Q4H PRN for SHORTNESS OF BREATH, (Reported) Amlodipine Besylate 10 Mg Tablet, 10 MG PO HS, (Reported) LAST FILLED #90 07-19-19 Clonidine HCl 0.1 Mg Tablet, 0.1 MG PO BID, (Reported) LAST FILLED #180 07-19-19 Cyclobenzaprine HCl 10 Mg Tablet, 10 MG PO BID PRN for MUSCLE SPASMS, (Reported) Diphenhydramine HCl 25 Mg Capsule, 50 MG PO HS PRN for SLEEP, (Reported) Fluoxetine HCl 20 Mg Capsule, 20 MG PO BID, (Reported) Lisinopril 20 Mg Tablet, 20 MG PO HS, (Reported) LAST FILLED #90 07-19-19 Metoprolol Succinate 50 Mg Tab.er.24h, 50 MG PO BID, (Reported) LAST FILLED #180 07-19-19 Pantoprazole Sodium 40 Mg Tablet.dr, 40 MG PO DAILY, (Reported) Spironolactone 25 Mg Tablet, 25 MG PO DAILY, (Reported) LAST FILLED #90 07-19-19 Sucralfate 1 Gm Tablet, 1 GM PO BID PRN for STOMACH UPSET, (Reported) Patient Home Medication List Home Medication List Reviewed: Yes Review of Systems Constitutional: No no symptoms reported, No see HPI, No chills, No diaphoresis, No dizziness, No fever, No malaise, No weakness, No weight gain, No weight loss, No other EENTM: No see HPI, No no symptoms reported, No ear discharge, No hearing loss, No ear pain, No blurred vision, No double vision, No eye pain, No tearing, No vision loss, No dental problems, No hoarseness, No mouth pain, No mouth swelling, No epistaxis, No nose congestion, No nose pain, No throat pain, No throat swelling, No other Respiratory: No no symptoms reported, No see HPI, No cough, No dyspnea on exertion, No hemoptysis, No orthopnea, No phlegm, No short of breath, No stridor, No wheezing, No other Cardiovascular: No no symptoms reported, No see HPI, No chest pain, No edema, No Hx of Intervention, No palpitations, No syncope, No vascular heart diseas, No other Gastrointestinal: No RUQ, No LUQ, No RLQ, No LLQ, No no symptoms reported, No see HPI, No abdominal pain, No constipation, No diarrhea, No dysphagia, No hematemesis, No heartburn, No jaundice, No loss of appetite, No melena, No nausea, No vomiting, No other Musculoskeletal: No no symptoms reported, No see HPI, No back pain, No gout, No joint pain, No joint swelling, No muscle pain, No muscle stiffness, No muscle cramps, No muscle twitching, No muscle weakness, No neck pain, No other Skin: No no symptoms reported, No see HPI, No change in color, No change in hair/nails, No dryness, No hx of skin cancer, No lesions, No lumps, No pruritus, No rash, No other All Other Systems Reviewed Negative Unless Noted: Yes Past Aksasti-Qhezmk-Hrffmj Hx Patient Social History Alcohol Use: Denies Use Recreational Drug Use: No Smoking Status: Current Everyday Smoker Type Used: Cigarettes 2nd Hand Smoke Exposure: Yes Recent Foreign Travel: No Contact w/Someone Who Travel: No Recent Infectious Disease Expo: No Recent Hopitalizations: No Immunizations Up To Date Tetanus Booster (TDap): Unknown Date of Pneumonia Vaccine: Aug 14, 2016 Date of Influenza Vaccine: Jul 15, 2019 Seasonal Allergies Seasonal Allergies: No Past Medical History Surgeries: Yes Defibrillator, Gallbladder, Hysterectomy, Pacemaker, 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 Respiratory: Yes (Tobaccoism) Cardiac: Yes (pacemaker/defib; a-fib) Atrial Fibrillation, Heart Attack, High Cholesterol, Hypertension 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 0oz. [id number]; 34.00 BMI Method:Stated General Appearance: WD/WN, no apparent distress Cardiovascular: normal peripheral pulses, regular rate, rhythm, no edema, no gallop, no JVD, no murmur Respiratory: chest non-tender, lungs clear, normal breath sounds, no respiratory distress, no accessory muscle use Gastrointestinal: normal bowel sounds, non tender, soft, no organomegaly, no pulsatile mass, abnormal bowel sounds Elbow/Forearm: Left, limited ROM, pain, soft tissue tenderness, swelling (patient states injuries that is unchanged the past several weeks.) Progress/Results/Core Measures Results/Orders Vital Signs/I&O 04/27/20 17:29 Temp 36.2 Pulse 122 Resp 18 B/P (MAP) 188/121 (143) Pulse Ox 98 O2 Delivery Room Air Blood Pressure Mean: 143 Progress Progress Note : Time: 18:44 Progress Note Negative evaluation the emergency department. Patient has not been wearing the splint on her left forearm. Patient states she's had multiple x-rays that were all negative for any acute injuries. Patient offered additional x-rays with declines. Instructed the patient wear splint we will provide. Patient is to continue all home medications. We will write the patient a prescription for diclofenac to help with any additional pain swelling. Patient is to follow wrist past elevation and compression as instructed. Patient should follow-up with her primary care physician next 2-3 days Departure Impression Primary Impression: Contusion of wrist Additional Impression: Left wrist sprain Disposition: HOME, SELF-CARE Condition: Stable Departure-Patient Inst. Decision time for Depature: 18:45 Referrals: RICHARD HERMAN MD (PCP) Primary Care Physician KATHI HUYNH MD Patient Instructions: Common Wrist Injuries (DC) Add. Discharge Instructions: Wear splint as instructed. Wrist has elevation compression as instructed. Take medications as previously prescribed. We will prescribe diclofenac to help with pain and swelling. Avoid taking ibuprofen with this medication. All discharge instructions reviewed with patient and/or family. Voiced understanding. Scripts Diclofenac Sodium (Diclofenac Sodium) 75 Mg Tablet. 75 MG PO BID for 10 Days, #20 TAB 0 Refills Prov: CLAUDIA DELEON MD 04/27/20 Diclofenac Sodium (Diclofenac Sodium) 75 Mg Tablet. 75 MG PO BID for 10 Days, #20 TAB 0 Refills Prov: CLAUDIA DELEON MD 04/27/20 CLAUDIA DELEON MD Apr 27, 2020 18:39
[2020-04-27] MEDS ORDERED: DICL75TA2 PO ×2 (18:46→18:47)
[2020-04-27 18:50] VITALS: BP 183/121
--- OUTSIDE RECORDS SUMMARY | 2020-04-27 20:12 | XMS REPORT | Continuity of Care Document ---
Author Organization Unknown Address Unknown Phone Unavailable Allergies Active Description Code Type Severity Reaction Onset Reported/Identified Relationship to Patient Clinical Status Yes aspirin [id number] Drug Allergy Unknown N/A 03/07/2019 Yes morphine [id number] Drug Allergy Unknown N/A 04/21/2019 Yes morphine [id number] Drug Allergy Unknown Pt has received 09/06/2019 Yes latex [id number] Drug Allergy Unknown N/A 09/16/2019 Medications There [...] 03/05/2019 CHARLOTTE GUTHRIE DO T Ot T82.198A [facility] COMPL OF OTHER CARDIAC ELECTRONIC D 03/05/2019 [...] 03/06/2019 JERRI TALBERT, CHARLOTTE T Ot T82.198A [facility] COMPL OF OTHER CARDIAC ELECTRONIC D 03/06/2019 [...] ARISTEO Ot I25.10 ATHSCL HEART DISEASE OF [place] CORONARY 03/07/2019 COYNE , ARISTEO Ot R10.31 [...] 03/10/2019 JERRI TALBERT, CHARLOTTE T Ot T82.198A [facility] COMPL OF OTHER CARDIAC ELECTRONIC D 03/10/2019 JERRI TALBERT, CHARLOTTE T Ot Z77. 22 CNTCT W AND EXPSR TO ENVIRON TOBACCO SMO 03/10/2019 [facility], [place] T Ot Z88. 5 ALLERGY STATUS TO NARCOTIC AGENT STATUS 03/10/2019 JERRI TALBERT, CHARLOTTE T Ot Z88. 6 ALLERGY STATUS TO ANALGESIC AGENT STATUS 03/10/2019 JERRI TALBERT, CHARLOTTE T Ot Z95.810 PRESENCE OF AUTOMATIC (IMPLANTABLE) CARD 03/12/2019 DORETHA TALBERT, ARISTEO Ot I10 ESSENTIAL (PRIMARY) HYPERTENSION 03/12/2019 COYNE DO, ARISTEO Ot I25.10 ATHSCL HEART DISEASE OF [place] CORONARY 03/12/2019 COYNE DO, ARISTEO Ot R10.31 RIGHT LOWER QUADRANT PAIN 03/12/2019 COYNE DO, ARISTEO Ot Z77.22 CNTCT W AND EXPSR TO ENVIRON TOBACCO SMO 03/12/2019 COYNE DO, ARISTEO Ot Z88.5 ALLERGY STATUS TO NARCOTIC AGENT STATUS 03/12/2019 DORETHA TALBERT, ARISTEO Ot Z88.6 ALLERGY STATUS TO ANALGESIC AGENT STATUS 03/12/2019 [facility], ARISTEO Ot Z95.810 PRESENCE OF AUTOMATIC (IMPLANTABLE) CARD 03/12/2019 COYNE , ARISTEO Ot Z95.9 PRESENCE OF CARDIAC AND VASCULAR IMPLANT 04/21/2019 NEHA ROSE MD Ot F17.210 NICOTINE DEPENDENCE, CIGARETTES, UNCOMPL 04/21/2019 NEHA ROSE MD Ot I25. 10 ATHSCL HEART DISEASE OF [place] CORONARY 04/21/2019 NEHA ROSE MD Ot R07. 9 CHEST PAIN, UNSPECIFIED 04/21/2019 NEHA ROSE MD Ot Z88. 5 ALLERGY STATUS TO NARCOTIC AGENT STATUS 04/21/2019 NEHA ROSE MD Ot Z88. 6 ALLERGY STATUS TO ANALGESIC AGENT STATUS 04/21/2019 NEHA ROSE MD Ot Z95.810 PRESENCE OF AUTOMATIC (IMPLANTABLE) CARD 04/27/2019 NEHA ROES MD Ot F17.210 NICOTINE DEPENDENCE, CIGARETTES, UNCOMPL 04/27/2019 NEHA ROSE MD Ot I25. 10 ATHSCL HEART DISEASE OF [place] CORONARY 04/27/2019 NEHA ROSE MD Ot R07. [...] CNTCT W AND EXPSR TO ENVIRON TOBACCO [facility] 07/16/2019 MESA DO, ARISTEO Ot Z88.5 ALLERGY STATUS TO NARCOTIC AGENT STATUS 07/16/2019 COYNE DO, ARISTEO Ot Z88.6 ALLERGY STATUS TO ANALGESIC AGENT STATUS 07/16/2019 MESA DO, ARISTEO Ot Z90.710 ACQUIRED ABSENCE OF BOTH CERVIX AND UTER 07/16/2019 MESA DO, ARISTEO Ot Z95.810 PRESENCE OF AUTOMATIC (IMPLANTABLE) CARD 07/16/2019 MESA DO, ARISTEO Ot Z98.51 TUBAL LIGATION STATUS 07/18/2019 MESA DO, ARISTEO Ot I10 ESSENTIAL (PRIMARY) HYPERTENSION 07/18/2019 MESA DO, ARISTEO Ot I25.2 OLD MYOCARDIAL INFARCTION 07/18/2019 MESA DO, ARISTEO Ot R03.0 ELEVATED BLOOD-PRESSURE READING, W/O GHADA 07/18/2019 MESA DO, ARISTEO Ot R07.9 CHEST PAIN, UNSPECIFIED 07/18/2019 MESA DO, ARISTEO Ot Z77.22 CNTCT W AND EXPSR TO ENVIRON TOBACCO [facility] [place] 07/18/2019 MESA DO, ARISTEO Ot Z88.5 ALLERGY STATUS TO NARCOTIC AGENT STATUS 07/18/2019 MESA DO, ARISTEO Ot Z88.6 ALLERGY STATUS TO ANALGESIC AGENT STATUS 07/18/2019 MESA DO, ARISTEO Ot Z90.710 ACQUIRED ABSENCE OF BOTH CERVIX AND UTER 07/18/2019 MESA DO, ARISTEO Ot Z95.810 PRESENCE OF AUTOMATIC [...] OF BOTH CERVIX AND UTER 07/28/2019 LAMIN ADELR MD Ot Z95.8 10 PRESENCE OF AUTOMATIC [...] MD Ot F41.9 ANXIETY DISORDER, UNSPECIFIED 09/06/2019 LAEXANDRE MATA MD Ot G89.29 OTHER CHRONIC PAIN 09/06/2019 ALEXANDRE MATA MD Ot I10 ESSENTIAL (PRIMARY) HYPERTENSION 09/06/2019 ALEXANDRE MATA MD Ot I25.10 ATHSCL HEART DISEASE OF [place] CORONARY 09/06/2019 ALEXANDRE MATA MD, Ot I25.2 [...] Z79.89 9 OTHER [facility] (CURRENT) DRUG THERAPY 09/06/2019 ALEXANDRE MATA MD, [...] 09/11/2019 CRAIG KHANNA MD A Ot T82.191A [facility] COMPL OF CARDIAC PULSE GENERATOR (B 09/11/2019 [...] 09/13/2019 CRAIG KHANNA MD A Ot T82.191A [facility] COMPL OF CARDIAC PULSE GENERATOR (B 09/13/2019 [...] Ot E78.00 PURE HYPERCHOLESTEROLEMIA, UNSPECIFIED 09/16/2019 ALEXANDRE MTAA MD, Ot E78.5 HYPERLIPIDEMIA, UNSPECIFIED 09/16/2019 ALEXANDRE MATA MD, Ot F17.20 0 NICOTINE DEPENDENCE, UNSPECIFIED, UNCOMP 09/16/2019 ALEXANDRE MATA MD, Ot F41.9 ANXIETY DISORDER, UNSPECIFIED 09/16/2019 ALEXANDRE MATA MD, Ot G89.29 OTHER CHRONIC PAIN 09/16/2019 ALEXANDRE MATA MD, Ot I10 ESSENTIAL (PRIMARY) HYPERTENSION 09/16/2019 ALEXANDRE MATA MD, Ot I25.10 ATHSCL HEART DISEASE OF [place] CORONARY 09/16/2019 ALEXANDRE MATA MD, Ot I25.2 [...] ALEXANDRE MATA MD, Ot 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 09/16/2019 ALEXANDRE MATA MD, [...] 09/16/2019 ROVENSTINE DO, CHEVY L Ot T82.191A [facility] COMPL OF CARDIAC PULSE GENERATOR (B 09/16/2019 [...] WITHOUT 09/19/2019 CRAIG KHANNA MD Ot T82.191A [facility] COMPL OF CARDIAC PULSE GENERATOR (B 09/19/2019 [...] 09/21/2019 ROVENSTINE DO, CHEVY L Ot T82.191A [facility] COMPL OF CARDIAC PULSE GENERATOR (B 09/21/2019 [...] Ot Z98.51 TUBAL LIGATION STATUS 10/08/2019 KURT TRJEO MD Ot E78.00 PURE HYPERCHOLESTEROLEMIA, UNSPECIFIED 10/08/2019 [...] UNSPECIFIED 10/12/2019 ROSANNE DUNN MD Ot T82.198A [facility] COMPL OF OTHER CARDIAC ELECTRONIC D 10/12/2019 ROSANNE DUNN MD Ot Z79.899 OTHER [facility] (CURRENT) DRUG THERAPY 10/12/2019 ROSANNE DUNN MD [...] UNSPECIFIED 10/12/2019 ROSANNE DUNN MD Ot T82.198A [facility] COMPL OF OTHER CARDIAC ELECTRONIC D 10/12/2019 ROSANNE DUNN MD Ot Z79.899 OTHER [facility] (CURRENT) DRUG THERAPY 10/12/2019 ROSANNE DUNN MD [...] UNSPECIFIED 10/24/2019 ROSANNE DUNN MD Ot T82.198A [facility] COMPL OF OTHER CARDIAC ELECTRONIC D 10/24/2019 ROSANNE DUNN MD Ot 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 11/18/2019 SINCERE LILLY MD, [...] Z95.8 10 PRESENCE OF AUTOMATIC (IMPLANTABLE) CARD 04/10/2020 CLAUDIA DELEON MD Ot G89.29 OTHER CHRONIC PAIN 04/10/2020 CLAUDIA DELEON MD Ot I1 0 ESSENTIAL (PRIMARY) HYPERTENSION 04/10/2020 CLAUDIA DELEON MD Ot I25.2 OLD MYOCARDIAL INFARCTION 04/10/2020 CLAUDIA DELEON MD Ot K21.9 GASTRO-ESOPHAGEAL REFLUX DISEASE WITHOUT 04/10/2020 CLAUDIA DELEON MD Ot M54.9 DORSALGIA, UNSPECIFIED 04/10/2020 CLAUDIA DELEON MD Ot M79.642 PAIN IN LEFT HAND 04/10/2020 CLAUDIA DELEON MD Ot S60.222A CONTUSION OF LEFT HAND, INITIAL ENCOUNTE 04/10/2020 CLAUDIA DELEON MD Ot W18.2XXA FALL IN (INTO) SHOWER OR EMPTY BATHTUB, 04/10/2020 CLAUDIA DELEON MD Ot Z2 3 ENCOUNTER FOR IMMUNIZATION 04/10/2020 CLAUDIA DELEON MD Ot Z77.22 CNTCT W AND EXPSR TO ENVIRON TOBACCO SMO 04/10/2020 CLAUDIA DELEON MD Ot Z82.49 FAMILY HX OF ISCHEM HEART DIS AND OTH DI 04/10/2020 CLAUDIA DELEON MD Ot Z88.6 ALLERGY STATUS TO ANALGESIC AGENT STATUS 04/10/2020 CLAUDIA DELEON MD Ot Z91.040 LATEX ALLERGY STATUS 04/10/2020 CLAUDIA DELEON MD Ot Z95.810 PRESENCE OF AUTOMATIC (IMPLANTABLE) CARD 04/10/2020 LOPEZ DO, TERESSA L Ot G89.2 9 OTHER CHRONIC PAIN 04/10/2020 LOPEZ DO, TERESSA L Ot I10 ESSENTIAL (PRIMARY) HYPERTENSION 04/10/2020 LOPEZ DO, TERESSA L Ot I25.2 OLD MYOCARDIAL INFARCTION 04/10/2020 LOPEZ DO, TERESSA L Ot K21.9 GASTRO-ESOPHAGEAL REFLUX DISEASE WITHOUT 04/10/2020 LOPEZ DO, TERESSA L Ot M54.9 DORSALGIA, UNSPECIFIED 04/10/2020 LOPEZ DO, TERESSA L Ot S61.412A LACERATION WITHOUT FOREIGN BODY OF LEFT 04/10/2020 LOPEZ DO, TERESSA L Ot W19.XXXA UNSPECIFIED FALL, INITIAL ENCOUNTER 04/10/2020 LOPEZ DO, TERESSA L Ot Z23 ENCOUNTER FOR IMMUNIZATION 04/10/2020 LOPEZ DO, TERESSA L Ot Z77.2 2 CNTCT W AND EXPSR TO ENVIRON TOBACCO SMO 04/10/2020 LOPEZ DO, TERESSA L Ot Z82.4 9 FAMILY HX OF ISCHEM HEART DIS AND OTH DI 04/10/2020 TERESSA LOPEZ DO Ot Z88.6 ALLERGY STATUS TO ANALGESIC AGENT STATUS 04/10/2020 JOHN DOTERESSA Ot Z91.0 40 LATEX ALLERGY STATUS 04/10/2020 LOPEZ DOPASQUALER L Ot Z91.8 1 HISTORY OF FALLING 04/10/2020 TERESSA LOPEZ DO Ot Z95.8 10 PRESENCE OF AUTOMATIC (IMPLANTABLE) [...] OF GROWTH Many NR Bacterial sputum culture [id number] NR Complete blood count (CBC) with automate [...] mg/dL 0.1-1.0 Serum or plasma alkaline phosphatase uegene surement (enzymatic activity/volume) 105 U/L 40-136 Serum [...] Manual blood segmented neutrophils/100 leukocytes 75 % [facility] Manual blood lymphocytes/100 leukocytes 15 % NR Blood lymphocytes variant/100 leukocytes 6 % [facility] Blood microcytes detection by light microscopy [facility] Influenza virus A and B antigen detectio n - 11/17/19 20:52 FLU RESULT NEGATIVE FOR INFLUENZA A AND B ANTIGENS BY IA [facility] Comprehensive metabolic panel - 11/17/19 20:52 Serum or plasma sodium measurement (moles/volume) 141 mmol/L 135-145 Serum or plasma potassium measurement (moles/volume) 2.9 mmol/L 3.6-5.0 Serum or plasma chloride measurement (moles/volume) 102 mmol/L 98-107 Carbon dioxide 25 mmol/L -32 Serum or plasma anion gap determination (moles/volume) [...] 107 mmol/L 98-107 Carbon dioxide 24 mmol/L -32 Serum or plasma anion gap determination (moles/volume) [...] Status Pt. Type Provider Facility Loc./Unit Complaint [id number] 04/23/2020 18:00:00 04/23/2020 23:59:5 9 CLS Outpatient RICHARD HERMAN [facility] [id number] 01/09/2020 15:40:00 Document Registration [id number] 07/09/2019 13:00:00 Document Registration [id number] 01/08/2019 11:40:00 Document Registration [id number] 04/27/2020 17:26:00 18:50:00 DIS Emergency CLAUDIA DELEON MD [facility] ER FS FOREARM PAIN AND SWELLI NG [id number] 04/08/2020 19:20:00 20:05:00 DIS Outpatient TERESSA LOPEZ DO [facility] ER FS HAND LACERATION/FELL [id number] 04/07/2020 20:22:00 21:03:00 DIS Outpatient CLAUDIA DELEON MD [facility] ER FS HAND INJ [id number] 02/10/2020 10:30:00 12:26:00 DIS Emergency LOPEZ TERESSA TALBERT [facility] ER FS STROKE SYMPTOMS [id number] 12/11/2019 16:28:00 18:34:00 DIS Emergency ROVENSTINE DOCHEVY L [facility] ER FS CHEST TIGHTNESS ,HIGH BLOOD PRESSURE,SOB [id number] 11/17/2019 23:45:00 11:32:00 DIS Inpatient MAXX DUNCAN, SINCERE Portillo [facility] ICU PACEMAKER WENT OFF [id number] 11/03/2019 17:44:00 19:06:00 DIS Emergency NAYELY DUNCAN, LAMIN Fox [facility] ER FS VOMITING,COUGH,SOB [id number] 10/20/2019 21:45:00 23:32:00 DIS Emergency JEAN PAUL LIRIANO MD [facility] ER FS CHEST PAIN/RIGHT ARM PA IN [id number] 10/11/2019 06:00:00 11:49:00 DIS Inpatient ROSANNE DUNN MD [facility] CSD CHEST PAIN,NEAR SYNCOPE,DEFRIBRILLATOR FIRING [id number] 10/10/2019 15:11:00 16:00:00 DIS Emergency MILTON DUNCAN, NEHA Mejia [facility] ER FS RT HAND WOUND CHECK [id number] 10/08/2019 18:38:00 20:25:00 DIS Emergency LAMIN ADLER MD [facility] ER FS R HAND BURN [id number] 10/08/2019 02:03:00 03:37:00 DIS Emergency KURT TREJO MD [facility] ER FS HYPENTENSION [id number] 10/07/2019 15:09:00 16:45:00 DIS Emergency KURT TREJO MD [facility] ER FS CHEST PAIN/SOA [id number] 10/05/2019 21:02:00 22:28:00 DIS Emergency DEANDRA DUNCAN, JEAN PAUL Lezama [facility] ER FS CHEST PAIN/SOB [id number] 10/03/2019 20:20:00 22:28:00 DIS Emergency CLAUDIA RYAN DO L [facility] ER FS CHEST PAIN [id number] 09/16/2019 16:26:00 18:14:00 DIS Emergency ROVENSTMICA DOCHEVY [facility] ER FS PACE MAKER ISSU E [id number] 09/11/2019 19:21:00 21:55:00 DIS Emergency JEY DUNCAN, CRAIG Ozuna [facility] ER FS IRR HEART RATE [id number] 09/08/2019 17:50:00 18:56:00 DIS Emergency XIOMARA DUNCAN, MCKENNA Gonzalez [facility] ER FS BACK PAIN [id number] 09/06/2019 11:14:00 14:16:00 DIS Outpatient ALEXANDRE MATA MD [facility] ENDO ESOPHAGEAL MASS PER CT/ COUGH [id number] 09/02/2019 05:47:00 23:59:59 CLS Outpatient ALEXANDRE MATA MD [facility] PREOP EGD [id number] 08/13/2019 23:45:00 18:08:00 DIS Inpatient CHRIS DUNCAN, MARIAJOSE Gimenez [facility] 4TH ACS1 ELEV TROPONIN, TASHI ST PAIN [id number] 08/07/2019 09:44:00 23:59:59 CLS Preadmit OTHER, UNLISTED [facility] RAD LUMBAR RADICULOPATHY [id number] 07/29/2019 19:22:00 20:38:00 DIS Emergency CRAIG KHANNA MD [facility] ER FS SOB,COUGH,CHEST TIGHTNE SS [id number] 07/20/2019 21:47:00 00:08:00 DIS Emergency LAMIN ADLER MD [facility] ER FS CHEST PAIN; SOB [id number] 07/18/2019 20:40:00 00:41:00 DIS Emergency LAMIN ADLER MD [facility] ER FS CHEST PAIN,SOB [id number] 07/16/2019 09:35:00 12:39:00 DIS Emergency ARISTEO COYNE DO [facility] ER FS HIGH BP [id number] 04/21/2019 16:10:00 19:15:00 DIS Emergency MILTON DUNCAN, NEHA Mejia [facility] ER FS CHEST PAIN [id number] 03/07/2019 18:40:00 20:00:00 DIS Emergency ARISTEO COYNE DO [facility] ER FS PAIN [id number] 03/04/2019 21:34:00 04:07:00 DIS Emergency CHARLOTTE GUTHRIE DO [facility] ER FS CHEST PAIN AROUND PACE MAKER [id number] 02/27/2019 19:29:00 23:32:00 DIS Emergency LAMIN ADLER MD [facility] ER FS COUGH,DIZZY, CHEST PAIN , NAUSEA, RT EAR PAIN [id number] 01/10/2019 15:48:00 20:13:00 DIS Outpatient CAROLANN GUTHRIE DOED T [facility] ER FS CHEST PAIN, RT ARM NUMB [id number] 12/15/2018 13:56:00 13:56:00 CAN Preadmit NAYELY DUNCAN, LAMIN Pereira [facility] ER FS RT/LT HAND NUMBNESS
== END 2020-04-27 18:50 | disposition home or self-care (01) ==
LOC: EDUNIT# 17:25 → ER FS 17:26
DX: S63.502A Unspecified sprain of left wrist, initial encounter (principal); I48.91 Unspecified atrial fibrillation; I10 Essential (primary) hypertension; I25.2 Old myocardial infarction; K21.9 Gastro-esophageal reflux disease without esophagitis; M54.9 Dorsalgia, unspecified; G89.29 Other chronic pain; F17.210 Nicotine dependence, cigarettes, uncomplicated; Z88.6 Allergy status to analgesic agent; Z91.040 Latex allergy status; Z95.0 Presence of cardiac pacemaker; Z90.710 Acquired absence of both cervix and uterus; W19.XXXA Unspecified fall, initial encounter

== ENCOUNTER 2020-05-06 15:10 | Emergency (ER) | payer BC ==
[~2020-05-06] VITALS: Ht 167 cm; Wt 125.0 kg
[~2020-05-06 15:10] MED LIST changes: +DICL75TA2 PO
[2020-05-06] MEDS ORDERED: HYDROcodone/APAP 5 MG/325 MG (LORTAB) TAB PO ONE (15:30)
--- NOTE | 2020-05-06 15:49 | Diagnostic Imaging Report ---
INDICATION: Fall with left forearm pain and swelling. TECHNIQUE: AP and lateral views of the left forearm were obtained. FINDINGS: No fracture or acute bony abnormality is seen. IMPRESSION: Negative left forearm. Dictated by: Dictated on workstation # [id number]
--- NOTE | 2020-05-06 15:51 | Diagnostic Imaging Report ---
INDICATION: Left wrist pain post injury. AP, oblique, and lateral views of the left wrist are obtained. No acute fracture or acute bony abnormality is seen. There is degenerative change of the radiocarpal joint and first carpometacarpal joint. IMPRESSION: Underlying degenerative findings. No acute abnormality of left wrist. Dictated by: Dictated on workstation # [id number]
--- NOTE | 2020-05-06 15:54 | ED Upper Extremity ---
General Chief Complaint: Upper Extremity Stated Complaint: ARM PAIN Nursing Triage Note: LEFT ARM PAIN X 1 MONTH Nursing Sepsis Screen: No Definite Risk Source: patient Exam Limitations: no limitations History of Present Illness Date Seen by Provider: May 06, 2020 Time Seen by Provider: 15:31 Initial Comments The patient is a pleasant 50-year-old female presents for evaluation of a left upper extremity injury. She states that she fell about a month ago and has been having pain to the distal left forearm, wrist, and hand as well as some swell ing. She went to an urgent care after the injury and had multiple x-rays performed and was told that these were unremarkable. She then followed up with her PCP who has her set up with an orthopedic consultation this Monday. She states that because of the pain and swelling she was concerned. She denies any other injuries and did not hit her head or lose consciousness during this fall. Severity: moderate Pain/Injury Location: right forearm, right wrist, right hand Method of Injury: fell Modifying Factors: Improves With Immobilization (helps), Improves With Movement (makes it worse) Allergies and Home Medications Allergies Coded Allergies: aspirin (Verified Allergy, Unknown, 03/07/19) latex (Verified Allergy, Unknown, 09/16/19) Home Medications Acetaminophen 500 Mg Tablet, 1,000 MG PO Q4H PRN for PAIN-MILD (1-4), (Reported) Albuterol Sulfate 1 Puff Puff, 2 PUFF INH Q4H PRN for SHORTNESS OF BREATH, (Reported) Amlodipine Besylate 10 Mg Tablet, 10 MG PO HS, (Reported) LAST FILLED #90 104-19 Clonidine HCl 0.1 Mg Tablet, 0.1 MG PO BID, (Reported) LAST FILLED #180 10-4-19 Cyclobenzaprine HCl 10 Mg Tablet, 10 MG PO BID PRN for MUSCLE SPASMS, (Reported) Diclofenac Sodium 75 Mg Tablet., 75 MG PO BID Prescribed by: CLAUDIA DELEON on 04/27/201845 Diclofenac Sodium 75 Mg Tablet., 75 MG PO BID Prescribed by: CLAUDIA DELEON on 04/27/201846 Diphenhydramine HCl 25 Mg Capsule, 50 MG PO HS PRN for SLEEP, (Reported) Fluoxetine HCl 20 Mg Capsule, 20 MG PO BID, (Reported) Lisinopril 20 Mg Tablet, 20 MG PO HS, (Reported) LAST FILLED #90 10-4-19 Metoprolol Succinate 50 Mg Tab.er.24h, 50 MG PO BID, (Reported) LAST FILLED #180 07-19-19 Pantoprazole Sodium 40 Mg Tablet.dr, 40 MG PO DAILY, (Reported) Spironolactone 25 Mg Tablet, 25 MG PO DAILY, (Reported) LAST FILLED #90 07-19-19 Sucralfate 1 Gm Tablet, 1 GM PO BID PRN for STOMACH UPSET, (Reported) Patient Home Medication List Home Medication List Reviewed: Yes Review of Systems Constitutional: no symptoms reported EENTM: no symptoms reported Respiratory: no symptoms reported Cardiovascular: no symptoms reported Gastrointestinal: no symptoms reported Genitourinary: no symptoms reported Musculoskeletal: joint pain (right wrist/distal forearm/hand) Skin: no symptoms reported Psychiatric/Neurological: No Symptoms Reported All Other Systems Reviewed Negative Unless Noted: Yes Past Linlcsh-Yivsnp-Okpapz Hx Past Med/Social Hx: Reviewed Nursing Past Med/Soc Hx Patient Social History Alcohol Use: Denies Use Recreational Drug Use: No Smoking Status: Current Everyday Smoker Type Used: Cigarettes 2nd Hand Smoke Exposure: Yes Recent Foreign Travel: No Contact w/Someone Who Travel: No Recent Infectious Disease Expo: No Recent Hopitalizations: No Physical Abuse: No Sexual Abuse: No Mistreated: No Fear: No Immunizations Up To Date Tetanus Booster (TDap): Unknown Date of Pneumonia Vaccine: Aug 14, 2016 Date of Influenza Vaccine: Jul 15, 2019 Seasonal Allergies Seasonal Allergies: No Past Medical History Surgeries: Yes Defibrillator, Gallbladder, Hysterectomy, Pacemaker, 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 Respiratory: Yes (Tobaccoism) Cardiac: Yes (pacemaker/defib; a-fib) Atrial Fibrillation, Heart Attack, High Cholesterol, Hypertension Neurological: No EARLY CHILDHOOD History: Hysterectomy, 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 Genitourinary: No Gastrointestinal: Yes (Esophageal Mass) Gastroesophageal Reflux, Hiatal Hernia Musculoskeletal: Yes (ruptured disks) Chronic Back Pain Endocrine: No HEENT: No Cancer: No Psychosocial: No Integumentary: No Blood Disorders: No Family Medical History Heart Disease Physical Exam Vital Signs Vital Signs - First Documented 05/06/20 15:20 Temp 36.3 Pulse 92 Resp 18 B/P (MAP) 166/92 (116) Pulse Ox 95 O2 Delivery Room Air Capillary Refill : Less Than 3 Seconds Height, Weight, BMI Height: 5'7.00" Weight: 200lbs. 0oz. 90.666834tt; 44.00 BMI Method:Stated General Appearance: WD/WN, no apparent distress HEENT: PERRL/EOMI Neck: non-tender, full range of motion, normal inspection Cardiovascular: regular rate, rhythm, no edema, no murmur Respiratory: lungs clear, normal breath sounds, no respiratory distress, no accessory muscle use Gastrointestinal: normal bowel sounds, non tender, soft Elbow/Forearm: normal ROM, Right, soft tissue tenderness (distal volar forearm, slight bruising and swelling), swelling Wrist: Yes soft tissue tenderness (right wrist), Yes swelling Hand: Right, soft tissue tenderness, swelling (right hand dorsal swelling and mild tenderness) Progress/Results/Core Measures Results/Orders My Orders Orders - NIYAH CANADA DO Wrist 3 View Left (05/06/20 15:27) Hand 3 View Left (05/06/20 15:27) Forearm 2 View Left (05/06/20 15:27) Ice: Apply To Affected Area (05/06/20 15:28) Hydrocodone/Apap 5/325 Tablet (Lortab 5 (05/06/20 15:30) Vital Signs/I&O 05/06/20 15:20 Temp 36.3 Pulse 92 Resp 18 B/P (MAP) 166/92 (116) Pulse Ox 95 O2 Delivery Room Air Blood Pressure Mean: 116 Progress Progress Note : Progress Note @1618 - updated on all imaging results which are unremarkable. She already is wearing a sling and has been encouraged to continue doing so for comfort. Strongly advised the patient to keep the appointment with orthopedic she has t his Monday. Advised patient to take the prescribed pain medication as needed for pain relief. The patient expresses verbal understanding and agreement with the plan and is stable for discharge home at this time. Diagnostic Imaging Diagonstic Imaging: Xray Comments [facility], [place] NAME: JENNIFER DICKERSON [facility] REC#: [id number] PT STATUS: REG ER : 1970 PHYSICIAN: NIYAH CANADA DO ADMIT DATE: 05/06/20/ER FS Draft Date of Exam:05/06/20 WRIST 3 VIEW LEFT INDICATION: Left wrist pain post injury. AP, oblique, and lateral views of the left wrist are obtained. No acute fracture or acute bony abnormality is seen. There is degenerative change of the radiocarpal joint and first carpometacarpal joint. IMPRESSION: Underlying degenerative findings. No acute abnormality of left wrist. Dictated on workstation # [id number] Dict: 05/06/20 1548 Trans: 05/06/20 1551 [id number] Interpreted by: MAIKOL FERRARA MD Electronically signed by: Departure Impression Primary Impression: Injury of left forearm and wrist Disposition: HOME, SELF-CARE Condition: Stable Departure-Patient Inst. Decision time for Depature: 16:20 Referrals: RICHARD HERMAN MD (PCP/Family) Primary Care Physician Patient Instructions: Contusion (DC), How to Use a Shoulder Sling, Acute Pain, Adult Add. Discharge Instructions: Keep the appointment with the orthopedic surgeon you have this Monday. Take the prescribed medicine as directed, as needed. Return to the emergency Department immediately for new or worsening symptoms. Scripts Hydrocodone/Acetaminophen (Hydrocodone-Acetamin 5-325 mg) 1 Each Tablet 1 EACH PO Q4H for Pain for 5 Days, #15 TAB Prov: NIYAH CANADA DO 05/06/20 NIYAH CANADA DO May 06, 2020 15:54
--- NOTE | 2020-05-06 15:54 | Diagnostic Imaging Report ---
INDICATION: Left wrist injury from a fall. FINDINGS: Three views of the left hand show no fracture, dislocation, or other acute abnormalities. IMPRESSION: Negative left hand. Dictated by: Dictated on workstation # [id number]
[2020-05-06] MEDS ORDERED: HYDR-3812 PO (16:21)
[2020-05-06 16:27] VITALS: BP 122/71
--- OUTSIDE RECORDS SUMMARY | 2020-05-06 17:13 | XMS REPORT | Continuity of Care Document ---
Author Organization Unknown Address Unknown Phone Unavailable Allergies Active Description Code Type Severity Reaction Onset Reported/Identified Relationship to Patient Clinical Status Yes aspirin [id number] Drug Allergy Unknown N/A 03/07/2019 Yes morphine [id number] Drug Allergy Unknown N/A 04/21/2019 Yes morphine [id number] Drug Allergy Unknown Pt has received 09/06/2019 Yes latex [id number] Drug Allergy Unknown N/A 09/16/2019 Medications There [...] CHARLOTTE GUTHRIE DO T Ot T82.198A [facility] COMPL OF OTHER CARDIAC ELECTRONIC [...] JERRI TALBERT, CHARLOTTE T Ot T82.198A [facility] COMPL OF OTHER CARDIAC ELECTRONIC [...] ARISTEO Ot I25.10 ATHSCL HEART DISEASE OF [place] CORONARY 03/07/2019 COYNE , ARISTEO Ot R10.31 [...] JERRI TALBERT, CHARLOTTE T Ot T82.198A [facility] COMPL OF OTHER CARDIAC ELECTRONIC D 03/10/2019 JERRI TALBERT, [place] T Ot Z77. 22 CNTCT W AND EXPSR TO ENVIRON TOBACCO SMO 03/10/2019 [facility], [place] T Ot Z88. 5 ALLERGY STATUS TO NARCOTIC AGENT STATUS 03/10/2019 JERRI TALBERT, [place] T Ot Z88. 6 ALLERGY STATUS TO ANALGESIC AGENT STATUS 03/10/2019 JERRI TALBERT, [place] T Ot Z95.810 PRESENCE OF AUTOMATIC (IMPLANTABLE) CARD 03/12/2019 DORETHA TALBERT, ARISTEO Ot I10 ESSENTIAL (PRIMARY) HYPERTENSION 03/12/2019 [place] DO, ARISTEO Ot I25.10 ATHSCL HEART DISEASE OF [place] CORONARY 03/12/2019 [place] DO, ARISTEO Ot R10.31 RIGHT LOWER QUADRANT PAIN 03/12/2019 [place] DO, ARISTEO Ot Z77.22 CNTCT W AND EXPSR TO ENVIRON TOBACCO SMO 03/12/2019 [place] DO, ARISTEO Ot Z88.5 ALLERGY STATUS TO NARCOTIC AGENT STATUS 03/12/2019 DORETHA TALBERT, ARISTEO Ot Z88.6 ALLERGY STATUS TO ANALGESIC AGENT STATUS 03/12/2019 [facility], ARISTEO Ot Z95.810 PRESENCE OF AUTOMATIC (IMPLANTABLE) CARD 03/12/2019 [place] , ARISTEO Ot Z95.9 PRESENCE OF CARDIAC AND VASCULAR IMPLANT 04/21/2019 NEHA ROSE MD Ot F17.210 NICOTINE DEPENDENCE, CIGARETTES, UNCOMPL 04/21/2019 NEHA ROSE MD Ot I25. 10 ATHSCL HEART DISEASE OF [place] CORONARY 04/21/2019 NEHA ROSE MD Ot R07. [...] Ot I25. 10 ATHSCL HEART DISEASE OF [place] CORONARY 04/27/2019 NEHA ROSE MD Ot R07. [...] CNTCT W AND EXPSR TO ENVIRON TOBACCO [facility] 07/16/2019 [place] DO, ARISTEO Ot Z88.5 ALLERGY STATUS TO NARCOTIC AGENT STATUS 07/16/2019 [place] DO, ARISTEO Ot Z88.6 ALLERGY STATUS TO ANALGESIC AGENT STATUS 07/16/2019 [place] DO, ARISTEO Ot Z90.710 ACQUIRED ABSENCE OF BOTH CERVIX AND UTER 07/16/2019 [place] DO, ARISTEO Ot Z95.810 PRESENCE OF AUTOMATIC (IMPLANTABLE) CARD 07/16/2019 [place] DO, ARISTEO Ot Z98.51 TUBAL LIGATION STATUS 07/18/2019 [place] DO, ARISTEO Ot I10 ESSENTIAL (PRIMARY) HYPERTENSION 07/18/2019 [place] DO, ARISTEO Ot I25.2 OLD MYOCARDIAL INFARCTION 07/18/2019 [place] DO, ARISTEO Ot R03.0 ELEVATED BLOOD-PRESSURE READING, W/O GHADA 07/18/2019 [place] DO, ARISTEO Ot R07.9 CHEST PAIN, UNSPECIFIED 07/18/2019 [place] DO, ARISTEO Ot Z77.22 CNTCT W AND EXPSR TO ENVIRON TOBACCO [facility] 07/18/2019 [place] DO, ARISTEO Ot Z88.5 ALLERGY STATUS TO NARCOTIC AGENT STATUS 07/18/2019 [place] DO, ARISTEO Ot Z88.6 ALLERGY STATUS TO ANALGESIC AGENT STATUS 07/18/2019 [place] DO, ARISTEO Ot Z90.710 ACQUIRED ABSENCE OF BOTH CERVIX AND UTER 07/18/2019 [place] DO, ARISTEO Ot Z95.810 PRESENCE OF AUTOMATIC [...] Ot J18. 9 PNEUMONIA, UNSPECIFIED ORGANISM 08/02/2019 CRAGI KHANNA MD A Ot J44. 1 CHRONIC [...] IDIO SLEEP RELATED NONOBSTRUCTIVE ALVEOL 08/15/2019 MARIAJOSE PREEZ MD Ot I10 ESSENTIAL (PRIMARY) HYPERTENSION 08/15/2019 [...] MD Ot I25.10 ATHSCL HEART DISEASE OF [place] CORONARY 09/06/2019 ALEXANDRE MATA MD, Ot I25.2 OLD MYOCARDIAL INFARCTION 09/06/2019 ALEXANDRE MATA MD, Ot J44.9 CHRONIC OBSTRUCTIVE PULMONARY DISEASE, U 09/06/2019 ALEXANDRE MATA MD, Ot K21.0 GASTRO-ESOPHAGEAL REFLUX DISEASE WITH ES 09/06/2019 ALEXNADRE MATA MD, Ot K29.50 UNSPECIFIED CHRONIC GASTRITIS WITHOUT BL 09/06/2019 ALEXANDRE MATA MD, Ot K29.80 DUODENITIS WITHOUT BLEEDING 09/06/2019 ALEXANDRE MATA MD, Ot K31.89 OTHER DISEASES OF STOMACH AND DUODENUM 09/06/2019 ALEXANDRE MATA MD, Ot K44.9 DIAPHRAGMATIC HERNIA WITHOUT OBSTRUCTION 09/06/2019 ALEXANDRE MATA MD, Ot M54.9 DORSALGIA, UNSPECIFIED 09/06/2019 ALEXANDRE MATA MD, Ot Z79.89 9 OTHER SENIOR LIVING (CURRENT) DRUG THERAPY 09/06/2019 ALEXANDRE MATA MD, [...] CRAIG KHANNA MD A Ot T82.191A [facility] COMPL OF CARDIAC PULSE GENERATOR [...] A Ot E83. 42 HYPOMAGNESEMIA 09/13/2019 CRAIG KHANAN MD A Ot E87. 6 HYPOKALEMIA 09/13/2019 CRAIG KHANNA MD A Ot I10 ESSENTIAL (PRIMARY) HYPERTENSION 09/13/2019 CRAIG KHANNA MD A Ot I25. 2 OLD MYOCARDIAL INFARCTION 09/13/2019 CRAIG KHANNA MD A Ot K21. 9 GASTRO-ESOPHAGEAL REFLUX DISEASE WITHOUT 09/13/2019 CRAIG KHANNA MD A Ot T82.191A [facility] COMPL OF CARDIAC PULSE GENERATOR [...] MD, Ot I25.10 ATHSCL HEART DISEASE OF [place] CORONARY 09/16/2019 ALEXANDRE MATA MD, Ot I25.2 [...] ALEXANDRE MATA MD, Ot Z79.89 9 OTHER CLUB STEWARD (CURRENT) DRUG THERAPY 09/16/2019 ALEXANDRE MATA MD, [...] ROVENSTINE DO, CHEVY L Ot T82.191A [facility] COMPL OF CARDIAC PULSE GENERATOR [...] 09/19/2019 CRAIG KHANNA MD Ot T82.191A [facility] COMPL OF CARDIAC PULSE GENERATOR [...] ROVENSTINE DO, CHEVY L Ot T82.191A [facility] COMPL OF CARDIAC PULSE GENERATOR [...] OF BACK OF RIGHT DE JESUS 10/08/2019 ALMIN ADLER MD Ot X11.8XXA CONTACT WITH OTHER [...] TREJO MD Ot I16.0 HYPERTENSIVE URGENCY 10/10/2019 KRUT TREJO MD Ot I25.2 OLD MYOCARDIAL INFARCTION [...] 10/12/2019 ROSANNE DUNN MD Ot T82.198A [facility] COMPL OF OTHER CARDIAC ELECTRONIC D 10/12/2019 ROSANNE DUNN MD Ot Z79.899 OTHER SENIOR LIVING (CURRENT) DRUG THERAPY 10/12/2019 ROSANNE DUNN MD [...] 10/12/2019 ROSANNE DUNN MD Ot T82.198A [facility] COMPL OF OTHER CARDIAC ELECTRONIC D 10/12/2019 ROSANNE DUNN MD Ot Z79.899 OTHER SENIOR LIVING (CURRENT) DRUG THERAPY 10/12/2019 ROSANNE DUNN MD Ot Z82.49 FAMILY HX OF ISCHEM HEART DIS AND OTH DI 10/12/2019 ROSANNE DUNN MD, Ot Z88 .5 ALLERGY STATUS TO NARCOTIC AGENT STATUS 10/12/2019 ROSANNE DUNN MD, Ot Z88 .6 ALLERGY STATUS TO ANALGESIC AGENT STATUS 10/12/2019 ROSANNE DUNN MD Ot Z90.49 ACQUIRED ABSENCE OF OTHER SPECIFIED PART 10/12/2019 ROSNANE DUNN MD Ot Z90.710 ACQUIRED ABSENCE OF [...] GASTRO-ESOPHAGEAL REFLUX DISEASE WITHOUT 10/20/2019 JEAN PAUL LIRAINO MD Ot R07.9 CHEST PAIN, UNSPECIFIED 10/20/2019 [...] 10/24/2019 ROSANNE DUNN MD Ot T82.198A [facility] COMPL OF OTHER CARDIAC ELECTRONIC D 10/24/2019 ROSANNE DUNN MD Ot Z79.899 OTHER CLUB STEWARD (CURRENT) DRUG THERAPY 10/24/2019 ROSANNE DUNN MD [...] 11/18/2019 SINCERE LILLY MD Ot Z79. 82 CLUB STEWARD (CURRENT) USE OF ASPIRIN 11/18/2019 SINCERE LILLY MD, Ot Z79.899 OTHER CLUB STEWARD (CURRENT) DRUG THERAPY 11/18/2019 SINCERE LILLY MD, [...] GASTRO-ESOPHAGEAL REFLUX DISEASE WITHOUT 04/10/2020 LOPEZ DO, ETRESSA L Ot M54.9 DORSALGIA, UNSPECIFIED 04/10/2020 LOPEZ [...] ISCHEM HEART DIS AND OTH DI 04/10/2020 TERESAS LOPEZ DO Ot Z88.6 ALLERGY STATUS TO [...] OF GROWTH Many NR Bacterial sputum culture [id number] NR Complete blood count (CBC) with automate [...] Manual blood segmented neutrophils/100 leukocytes 75 % [facility] Manual blood lymphocytes/100 leukocytes 15 % NR Blood lymphocytes variant/100 leukocytes 6 % [facility] Blood microcytes detection by light microscopy [facility] Influenza virus A and B antigen detectio n - 11/17/19 20:52 FLU RESULT NEGATIVE FOR INFLUENZA A AND B ANTIGENS BY IA [facility] Comprehensive metabolic panel - 11/17/19 [...] Status Pt. Type Provider Facility Loc./Unit Complaint [id number] 04/29/2020 16:40:00 04/29/2020 23:59:5 9 CLS Outpatient RICHARD HERMAN [facility] [id number] 01/09/2020 15:40:00 Document Registration [id number] 07/09/2019 13:00:00 Document Registration [id number] 01/08/2019 11:40:00 Document Registration [id number] 04/27/2020 17:26:00 18:50:00 DIS Emergency CLAUDIA DELEON MD [facility] ER FS FOREARM PAIN AND SWELLI NG [id number] 04/08/2020 19:20:00 20:05:00 DIS Outpatient TERESSA LOPEZ DO [facility] ER FS HAND LACERATION/FELL [id number] 04/07/2020 20:22:00 21:03:00 DIS Outpatient CLAUDIA DELENO MD [facility] ER FS HAND INJ [id number] 02/10/2020 10:30:00 12:26:00 DIS Emergency LOPEZ DOTERESSA [facility] ER FS STROKE SYMPTOMS [id number] 12/11/2019 16:28:00 18:34:00 DIS Emergency ROVENSTINE DO, CHEVY L [facility] ER FS CHEST TIGHTNESS ,HIGH BLOOD PRESSURE,SOB [id number] 11/17/2019 23:45:00 11:32:00 DIS Inpatient MAXX DUNCAN, SINCERE Portillo [facility] ICU PACEMAKER WENT OFF [id number] 11/03/2019 17:44:00 19:06:00 DIS Emergency NAYELY DUNCAN, LAMIN Fox [facility] ER FS VOMITING,COUGH,SOB [id number] 10/20/2019 21:45:00 23:32:00 DIS Emergency JEAN PAUL LIRIANO MD [facility] ER FS CHEST PAIN/RIGHT ARM PA IN [id number] 10/11/2019 06:00:00 11:49:00 DIS Inpatient SHAUN DUNCAN, ROSANNE Caicedo [facility] CSD CHEST PAIN,NEAR SYNCOPE,DEFRIBRILLATOR FIRING [id number] 10/10/2019 15:11:00 16:00:00 DIS Emergency MILTON DUNCAN, NEHA Mejia [facility] ER FS RT HAND WOUND CHECK [id number] 10/08/2019 18:38:00 20:25:00 DIS Emergency LAMIN ADLER MD [facility] ER FS R HAND BURN [id number] 10/08/2019 02:03:00 03:37:00 DIS Emergency KURT TREJO MD [facility] ER FS HYPENTENSION [id number] 10/07/2019 15:09:00 16:45:00 DIS Emergency KURT TREJO MD [facility] ER FS CHEST PAIN/SOA [id number] 10/05/2019 21:02:00 22:28:00 DIS Emergency DEANDRA DUNCAN, JEAN PAUL Lezama [facility] ER FS CHEST PAIN/SOB [id number] 10/03/2019 20:20:00 22:28:00 DIS Emergency CLAUDIA RYAN DO L [facility] ER FS CHEST PAIN [id number] 09/16/2019 16:26:00 18:14:00 DIS Emergency ROVENSTCHEVY NINO DO [facility] ER FS PACE MAKER ISSU E [id number] 09/11/2019 19:21:00 21:55:00 DIS Emergency CRAIG KHANNA MD [facility] ER FS IRR HEART RATE [id number] 09/08/2019 17:50:00 18:56:00 DIS Emergency XIOMARA DUNCAN, MCKENNA Gonzalez [facility] ER FS BACK PAIN [id number] 09/06/2019 11:14:00 14:16:00 DIS Outpatient ALEXANDRE MATA MD [facility] ENDO ESOPHAGEAL MASS PER CT/ COUGH [id number] 09/02/2019 05:47:00 23:59:59 CLS Outpatient ALEXANDRE MATA MD [facility] PREOP EGD [id number] 08/13/2019 23:45:00 18:08:00 DIS Inpatient CHRIS DUNCAN, MARIAJOSE Gimenez [facility] 4TH ACS1 ELEV TROPONIN, TASHI ST PAIN [id number] 08/07/2019 09:44:00 23:59:59 CLS Preadmit OTHER, UNLISTED [facility] RAD LUMBAR RADICULOPATHY [id number] 07/29/2019 19:22:00 20:38:00 DIS Emergency CRAIG KHANNA MD [facility] ER FS SOB,COUGH,CHEST TIGHTNE SS [id number] 07/20/2019 21:47:00 00:08:00 DIS Emergency LAMIN ADLER MD [facility] ER FS CHEST PAIN; SOB [id number] 07/18/2019 20:40:00 00:41:00 DIS Emergency LAMIN ADLER MD [facility] ER FS CHEST PAIN,SOB [id number] 07/16/2019 09:35:00 12:39:00 DIS Emergency ARISTEO COYNE DO [facility] ER FS HIGH BP [id number] 04/21/2019 16:10:00 19:15:00 DIS Emergency MILTON DUNCAN, NEHA S [facility] ER FS CHEST PAIN [id number] 03/07/2019 18:40:00 20:00:00 DIS Emergency ARISTEO COYNE DO [facility] ER FS PAIN [id number] 03/04/2019 21:34:00 04:07:00 DIS Emergency CHARLOTTE GUTHRIE DO [facility] ER FS CHEST PAIN AROUND PACE MAKER [id number] 02/27/2019 19:29:00 23:32:00 DIS Emergency LAMIN ADLER MD [facility] ER FS COUGH,DIZZY, CHEST PAIN , NAUSEA, RT EAR PAIN [id number] 01/10/2019 15:48:00 20:13:00 DIS Outpatient CHARLOTTE GUTHRIE DO T [facility] ER FS CHEST PAIN, RT ARM NUMB [id number] 12/15/2018 13:56:00 13:56:00 CAN PreadLAMIN Guillen MD, V [facility] ER FS RT/LT HAND NUMBNESS
== END 2020-05-06 16:28 | disposition home or self-care (01) ==
LOC: EDUNIT# 15:10 → ER FS 15:11
DX: S59.912A Unspecified injury of left forearm, initial encounter (principal); S69.92XA Unspecified injury of left wrist, hand and finger(s), initial encounter; S50.11XA Contusion of right forearm, initial encounter; I10 Essential (primary) hypertension; K21.9 Gastro-esophageal reflux disease without esophagitis; I25.2 Old myocardial infarction; G89.29 Other chronic pain; M54.9 Dorsalgia, unspecified; F17.210 Nicotine dependence, cigarettes, uncomplicated; Z95.810 Presence of automatic (implantable) cardiac defibrillator; Z91.040 Latex allergy status; Z88.6 Allergy status to analgesic agent; Z79.1 Long term (current) use of non-steroidal anti-inflammatories (NSAID); Z82.49 Family history of ischemic heart disease and other diseases of the circulatory system; W19.XXXA Unspecified fall, initial encounter
CPT/HCPCS: 73110; 73130

== ENCOUNTER → 2020-05-18 | Outpatient (CLI) | payer BC ==
[~2020-05-18] MED LIST changes: +HYDR-3812 PO
--- NOTE | 2020-05-18 15:42 | Diagnostic Imaging Report ---
PROCEDURE: CT left upper extremity without contrast. TECHNIQUE: Multiple contiguous axial images were obtained through the left upper extremity without the use of intravenous contrast. Auto Exposure Controls were utilized during the CT exam to meet ALARA standards for radiation dose reduction. INDICATION: Pain and swelling in the forearm after fall. COMPARISON: CT head performed concurrently. Left forearm radiographs of 05/06/2020. FINDINGS: Bones: There is no acute or healing fracture within the radius or ulna. Elbow alignment is normal. There are a few tiny 2-3 mm mineralized bodies within the elbow joint at the level of the olecranon fossa. Soft tissues: Subcutaneous induration and reticulations within the dorsal and radial aspect of the proximal forearm are noted. There is some low-attenuation within the proximal aspect of the proximal extensor muscle bellies at the level of the forearm which could represent areas of partial tear or intramuscular hemorrhage. This predominantly involves the extensor digitorum and extensor carpi radialis muscle bellies. No abnormality in the flexor compartments is seen. IMPRESSION: 1. Abnormal low attenuation in the proximal extensor muscle bellies of the forearm is suspicious for intramuscular hemorrhage and/or partial-thickness tear. If it will alter patient management, then MRI of the proximal one-half of the forearm could be performed for better soft tissue assessment. 2. No fracture within the forearm. Dictated by: Dictated on workstation # [id number]
--- NOTE | 2020-05-18 17:07 | Diagnostic Imaging Report ---
PROCEDURE: CT left upper extremity without contrast. TECHNIQUE: Multiple contiguous axial images were obtained through the left upper extremity without the use of intravenous contrast. Auto Exposure Controls were utilized during the CT exam to meet ALARA standards for radiation dose reduction. INDICATION: Left hand pain. COMPARISON: CT of the forearm performed concurrently. FINDINGS: BONES: There is no acute or healing fracture within the hand or wrist. There is a prominent smooth osseous excrescence arising from the dorsal aspect of the long finger metacarpal that has the appearance of a carpal boss. Multifocal degenerative changes are present throughout the hand greatest at the thumb CMC. No osseous erosions. SOFT TISSUES: Moderate dorsal swelling and subcutaneous reticulations in the distal forearm, wrist and hand. Intrinsic musculature of the hand is normal bulk. No soft tissue gas or radiopaque foreign body. IMPRESSION: 1. No fracture within the left hand. 2. Dorsal swelling may be due to contusion or edema. Dictated by: Dictated on workstation # [id number]
== END ==
LOC: RAD FS 13:52
PROVIDERS: ATTEND Orthopaedic Surgery
DX: S62.301A Unspecified fracture of second metacarpal bone, left hand, initial encounter for closed fracture (principal); S52.92XA Unspecified fracture of left forearm, initial encounter for closed fracture; W19.XXXA Unspecified fall, initial encounter
CPT/HCPCS: 73200

== ENCOUNTER 2020-05-23 21:54 | Emergency (ER) | payer BC ==
[~2020-05-23] VITALS: Ht 170.1 cm; Wt 107.0 kg
--- NOTE | 2020-05-23 21:58 | ED General ---
General Chief Complaint: Back Problems Stated Complaint: LOWER BACK PAIN Source of Information: Patient History of Present Illness Date Seen by Provider: May 23, 2020 Time Seen by Provider: 21:57 Initial Comments Patient is a 50-year-old female who comes to the emergency department today complaining of right lower quadrant on the right back pain. Her symptoms started yesterday and have progressively worsened over the course of the last 24 hours. She describes the pain to be severe and achy in nature. She states she has not urinated today. She does not have prior known history of kidney stone. Denies fever. Denies nausea or vomiting. No upper abdomen pain. She is having normal bowel movements. Allergies and Home Medications Allergies Coded Allergies: aspirin (Verified Allergy, Unknown, 03/07/19) latex (Verified Allergy, Unknown, 09/16/19) Home Medications Acetaminophen 500 Mg Tablet, 1,000 MG PO Q4H PRN for PAIN-MILD (1-4), (Reported) Albuterol Sulfate 1 Puff Puff, 2 PUFF INH Q4H PRN for SHORTNESS OF BREATH, (Reported) Amlodipine Besylate 10 Mg Tablet, 10 MG PO HS, (Reported) LAST FILLED #90 10-4-19 Clonidine HCl 0.1 Mg Tablet, 0.1 MG PO BID, (Reported) LAST FILLED #180 10-4-19 Cyclobenzaprine HCl 10 Mg Tablet, 10 MG PO BID PRN for MUSCLE SPASMS, (Reported) Diclofenac Sodium 75 Mg Tablet.dr, 75 MG PO BID Prescribed by: CLAUDIA DELEON on 04/27/20 1846 Diclofenac Sodium 75 Mg Tablet.dr, 75 MG PO BID Prescribed by: CLAUDIA DELEON on 04/27/20 1847 Diphenhydramine HCl 25 Mg Capsule, 50 MG PO HS PRN for SLEEP, (Reported) Fluoxetine HCl 20 Mg Capsule, 20 MG PO BID, (Reported) Hydrocodone/Acetaminophen 1 Each Tablet, 1 EACH PO Q4H Prescribed by: NIYAH CANADA on 05/06/20 1621 Lisinopril 20 Mg Tablet, 20 MG PO HS, (Reported) LAST FILLED #90 10-4-19 Metoprolol Succinate 50 Mg Tab.er.24h, 50 MG PO BID, (Reported) LAST FILLED #180 10-4-19 Pantoprazole Sodium 40 Mg Tablet.dr, 40 MG PO DAILY, (Reported) Spironolactone 25 Mg Tablet, 25 MG PO DAILY, (Reported) LAST FILLED #90 10-4-19 Sucralfate 1 Gm Tablet, 1 GM PO BID PRN for STOMACH UPSET, (Reported) Patient Home Medication List Home Medication List Reviewed: Yes Review of Systems Review of Systems Constitutional: no symptoms reported EENTM: no symptoms reported Respiratory: no symptoms reported Cardiovascular: no symptoms reported Gastrointestinal: see HPI Genitourinary: see HPI, decreased output Musculoskeletal: no symptoms reported Skin: no symptoms reported All Other Systems Reviewed Negative Unless Noted: Yes Past Adngxxc-Ulitrs-Chvqgz Hx Patient Social History Type Used: Cigarettes 2nd Hand Smoke Exposure: Yes Recent Foreign Travel: No Contact w/Someone Who Travel: No Recent Hopitalizations: No Immunizations Up To Date Tetanus Booster (TDap): Unknown Date of Pneumonia Vaccine: Aug 14, 2016 Date of Influenza Vaccine: Jul 15, 2019 Seasonal Allergies Seasonal Allergies: No Past Medical History Surgeries: Yes Defibrillator, Gallbladder, Hysterectomy, Pacemaker, 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 Respiratory: Yes (Tobaccoism) Cardiac: Yes (pacemaker/defib; a-fib) Atrial Fibrillation, Heart Attack, High Cholesterol, Hypertension Neurological: No PIPE COREMAKER History: Hysterectomy, 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 Genitourinary: No Gastrointestinal: Yes (Esophageal Mass) Gastroesophageal Reflux, Hiatal Hernia Musculoskeletal: Yes (ruptured disks) Chronic Back Pain Endocrine: No HEENT: No Cancer: No Psychosocial: No Integumentary: No Blood Disorders: No Family Medical History Heart Disease Physical Exam Vital Signs Vital Signs - First Documented 05/23/20 22:19 Temp 37.2 Pulse 125 Resp 16 B/P (MAP) 209/122 (151) Pulse Ox 97 O2 Delivery Room Air Capillary Refill : Height, Weight, BMI Height: 5'7.00" Weight: 200lbs. 0oz. [id number]; 44.00 BMI Method:Stated General Appearance: WD/WN, Other (significant distress 2/2 pain) HEENT: PERRL/EOMI, Normal ENT Inspection Neck: Full Range of Motion Respiratory: Lungs Clear Cardiovascular: Regular Rate, Rhythm Gastrointestinal: Non Tender, Soft Extremity: Normal Capillary Refill Neurologic/Psychiatric: Alert, Oriented x3 Skin: Normal Color, Warm/Dry Progress/Results/Core Measures Suspected Sepsis SIRS Temperature: Pulse: Respiratory Rate: Laboratory Tests 05/23/20 22:15: White Blood Count 6.6 Blood Pressure / Mean: Laboratory Tests 05/23/20 22:15: Creatinine 0.76, Platelet Count 301 Results/Orders Lab Results Laboratory Tests Test 05/23/20 22:15 05/23/20 22:50 Range/Units White Blood Count 6.6 4.3-11.0 10^3/uL Red Blood Count 4.54 4.35-5.85 10^6/uL Hemoglobin 13.7 11.5-16.0 G/DL Hematocrit 42 35-52 % Mean Corpuscular Volume 93 80-99 FL Mean Corpuscular Hemoglobin 30 25-34 PG Mean Corpuscular Hemoglobin Concent 32 32-36 G/DL Red Cell Distribution Width 15.4 H 10.0-14.5 % Platelet Count 301 130-400 10^3/uL Mean Platelet Volume 9.8 7.4-10.4 FL Neutrophils (%) (Auto) 44 42-75 % Lymphocytes (%) (Auto) 46 H 12-44 % Monocytes (%) (Auto) 7 0-12 % Eosinophils (%) (Auto) 2 0-10 % Basophils (%) (Auto) 0 0-10 % Neutrophils # (Auto) 2.9 1.8-7.8 X 10^3 Lymphocytes # (Auto) 3.0 1.0-4.0 X 10^3 Monocytes # (Auto) 0.5 0.0-1.0 X 10^3 Eosinophils # (Auto) 0.1 0.0-0.3 10^3/uL Basophils # (Auto) 0.0 0.0-0.1 10^3/uL Sodium Level 138 135-145 MMOL/L Potassium Level 3.8 3.6-5.0 MMOL/L Chloride Level 100 98-107 MMOL/L Carbon Dioxide Level 23 21-32 MMOL/L Anion Gap 15 H 5-14 MMOL/L Blood Urea Nitrogen 16 7-18 MG/DL Creatinine 0.76 0.60-1.30 MG/DL Estimat Glomerular Filtration Rate > 60 BUN/Creatinine Ratio 21 Glucose Level 200 H 70-105 MG/DL Calcium Level 10.1 8.5-10.1 MG/DL Urine Color YELLOW Urine Clarity CLEAR Urine pH 6.0 5-9 Urine Specific [place] >=1.030 1.016-1.022 Urine Protein NEGATIVE NEGATIVE Urine Glucose (UA) NEGATIVE NEGATIVE Urine Ketones NEGATIVE NEGATIVE Urine Nitrite NEGATIVE NEGATIVE Urine Bilirubin NEGATIVE NEGATIVE Urine Urobilinogen 1.0 < = 1.0 MG/DL Urine Leukocyte Esterase NEGATIVE NEGATIVE Urine RBC (Auto) NEGATIVE NEGATIVE Urine RBC 2-5 H /HPF Urine WBC 0-2 /HPF Urine Squamous Epithelial Cells 25-50 H /HPF Urine Crystals NONE /LPF Urine Bacteria TRACE /HPF Urine Casts NONE /LPF Urine Mucus NO /LPF Urine Culture Indicated NO My Orders Orders - CLAUDIA RYAN DO Ed Iv/Invasive Line Start (05/23/20 22:01) Cbc With Automated Diff (05/23/20 22:01) Basic Metabolic Panel (05/23/20 22:01) Urinalysis (05/23/20 22:01) Ns Iv 1000 Ml (Sodium Chloride 0.9%) (05/23/20 22:15) Ketorolac Injection (Toradol Injection) (05/23/20 22:15) Morphine Injection (Morphine Injection (05/23/20 22:01) Ct Abd/Pelvis Wo(Kidney Stone) (05/23/20 22:01) Hydromorphone Injection (Dilaudid Inject (05/23/20 22:45) Morphine Injection (Morphine Injection (05/23/20 23:25) Magnesium Citrate Oral Soln (Citrate Of (05/23/20 23:30) Medications Given in ED Current Medications Medications Dose Ordered Sig/Norma Route Start Time Stop Time Status Last Admin Dose Admin Hydromorphone HCl 1 mg ONCE ONCE IV 05/23/20 22:45 05/23/20 22:46 DC 05/23/20 22:47 1 MG Ketorolac Tromethamine 30 mg ONCE ONCE IVP 05/23/20 22:15 05/23/20 22:16 DC 05/23/20 22:17 30 MG Vital Signs/I&O 05/23/20 22:19 Temp 37.2 Pulse 125 Resp 16 B/P (MAP) 209/122 (151) Pulse Ox 97 O2 Delivery Room Air Capillary Refill : Progress Note : Time: 21:58 Progress Note Patient is seen and examined on arrival to her room. She does appear to be in significant discomfort. We will place IV, give IV fluids, give Toradol and morphine for pain. We'll do a CT scan and check labs including UA. 23:30: Patient mildly improved but not dramatically. Given morphine IV and dilaudid but denies significant pain relief after these. Review of [facility] reveals patient to have very frequent heavy opiate prescriptions which she acknowledges are for chronic back pain. No acute findings this evening to support the amount of pain she is having. She does have very large amount of stool present and noted on CT scan. Discharged home this evening and given some mag citrate to take at home. F/u with PCP. Departure Impression Primary Impression: Abdominal pain Additional Impression: Constipation Disposition: 01 HOME, SELF-CARE Condition: Improved Departure-Patient Inst. Referrals: RICHARD HERMAN MD (PCP/Family) Primary Care Physician CLAUDIA RYAN DO May 23, 2020 21:58
[2020-05-23] MEDS ORDERED: morphine INJ 10 MG/ML 1ML (SYR OR VIAL) IVP STA ×2 (22:01→23:25)
--- OUTSIDE RECORDS SUMMARY | 2020-05-23 22:02 | XMS REPORT | Continuity of Care Document ---
Author Organization Unknown Address Unknown Phone Unavailable Allergies Active Description Code Type Severity Reaction Onset Reported/Identified Relationship to Patient Clinical Status Yes aspirin [id number] Drug Allergy Unknown N/A 03/07/2019 Yes morphine [id number] Drug Allergy Unknown N/A 04/21/2019 Yes morphine [id number] Drug Allergy Unknown Pt has received 09/06/2019 Yes latex [id number] Drug Allergy Unknown N/A 09/16/2019 Medications There [...] 03/05/2019 CHARLOTTE GUTHRIE DO T Ot T82.198A [facility] COMPL OF OTHER CARDIAC ELECTRONIC [...] 03/06/2019 JERRI TALBERT, [place] T Ot T82.198A [facility] COMPL OF OTHER CARDIAC ELECTRONIC [...] ARISTEO Ot I25.10 ATHSCL HEART DISEASE OF [place] CORONARY 03/07/2019 COYNE , ARISTEO Ot R10.31 [...] 03/10/2019 JERRI TALBERT, [place] T Ot T82.198A [facility] COMPL OF OTHER CARDIAC ELECTRONIC D 03/10/2019 JERRI TALBERT, [place] T Ot Z77. 22 CNTCT W AND EXPSR TO ENVIRON TOBACCO SMO 03/10/2019 [facility], [place] T Ot Z88. 5 ALLERGY STATUS TO NARCOTIC AGENT STATUS 03/10/2019 JERRI TALBERT, [place] T Ot Z88. 6 ALLERGY STATUS TO ANALGESIC AGENT STATUS 03/10/2019 JERRI TALBERT, [place] T Ot Z95.810 PRESENCE OF AUTOMATIC (IMPLANTABLE) CARD 03/12/2019 DORETHA TALBERT, ARISTEO Ot I10 ESSENTIAL (PRIMARY) HYPERTENSION 03/12/2019 COYNE DO, ARISTEO Ot I25.10 ATHSCL HEART DISEASE OF [place] CORONARY 03/12/2019 COYNE DO, ARISTEO Ot R10.31 RIGHT LOWER QUADRANT PAIN 03/12/2019 COYNE DO, ARISTEO Ot Z77.22 CNTCT W AND EXPSR TO ENVIRON TOBACCO SMO 03/12/2019 COYNE DO, ARISTEO Ot Z88.5 ALLERGY STATUS TO NARCOTIC AGENT STATUS 03/12/2019 DORETHA TALBERT, ARISTEO Ot Z88.6 ALLERGY STATUS TO ANALGESIC AGENT STATUS 03/12/2019 [facility], ARISTEO Ot Z95.810 PRESENCE OF AUTOMATIC (IMPLANTABLE) CARD 03/12/2019 COYNE , ARISTEO Ot Z95.9 PRESENCE OF CARDIAC AND VASCULAR IMPLANT 04/21/2019 NEHA ROSE MD Ot F17.210 NICOTINE DEPENDENCE, CIGARETTES, UNCOMPL 04/21/2019 NEHA ROSE MD Ot I25. 10 ATHSCL HEART DISEASE OF [place] CORONARY 04/21/2019 NEHA ROSE MD Ot R07. [...] Ot I25. 10 ATHSCL HEART DISEASE OF [place] CORONARY 04/27/2019 NEHA ROSE MD Ot R07. [...] CNTCT W AND EXPSR TO ENVIRON TOBACCO [facility] [place] 07/16/2019 JOELTON DO, ARISTEO Ot Z88.5 ALLERGY STATUS TO NARCOTIC AGENT STATUS 07/16/2019 COYNE DO, ARISTEO Ot Z88.6 ALLERGY STATUS TO ANALGESIC AGENT STATUS 07/16/2019 JOELTON DO, ARISTEO Ot Z90.710 ACQUIRED ABSENCE OF BOTH CERVIX AND UTER 07/16/2019 JOELTON DO, ARISTEO Ot Z95.810 PRESENCE OF AUTOMATIC (IMPLANTABLE) CARD 07/16/2019 JOELTON DO, ARISTEO Ot Z98.51 TUBAL LIGATION STATUS 07/18/2019 JOELTON DO, ARISTEO Ot I10 ESSENTIAL (PRIMARY) HYPERTENSION 07/18/2019 JOELTON DO, ARISTEO Ot I25.2 OLD MYOCARDIAL INFARCTION 07/18/2019 JOELTON DO, ARISTEO Ot R03.0 ELEVATED BLOOD-PRESSURE READING, W/O GHADA 07/18/2019 JOELTON DO, ARISTEO Ot R07.9 CHEST PAIN, UNSPECIFIED 07/18/2019 JOELTON DO, ARISTEO Ot Z77.22 CNTCT W AND EXPSR TO ENVIRON TOBACCO [facility] [place] 07/18/2019 JOELTON DO, ARISTEO Ot Z88.5 ALLERGY STATUS TO NARCOTIC AGENT STATUS 07/18/2019 JOELTON DO, ARISTEO Ot Z88.6 ALLERGY STATUS TO ANALGESIC AGENT STATUS 07/18/2019 JOELTON DO, ARISTEO Ot Z90.710 ACQUIRED ABSENCE OF BOTH CERVIX AND UTER 07/18/2019 JOELTON DO, ARISTEO Ot Z95.810 PRESENCE OF AUTOMATIC [...] Ot E78.00 PURE HYPERCHOLESTEROLEMIA, UNSPECIFIED 08/15/2019 MARIAJOSE PREEZ MD Ot E78 .2 MIXED HYPERLIPIDEMIA 08/15/2019 [...] MD Ot I25.10 ATHSCL HEART DISEASE OF [place] CORONARY 09/06/2019 ALEXANDRE MATA MD, Ot I25.2 [...] ALEXANDRE MATA MD, Ot Z79.89 9 OTHER LONGTERM (CURRENT) DRUG THERAPY 09/06/2019 ALEXANDRE MATA MD, [...] 09/11/2019 CRAIG KHANNA MD A Ot T82.191A [facility] COMPL OF CARDIAC PULSE GENERATOR [...] 09/13/2019 CRAIG KHANNA MD A Ot T82.191A [facility] COMPL OF CARDIAC PULSE GENERATOR [...] MD, Ot I25.10 ATHSCL HEART DISEASE OF [place] CORONARY 09/16/2019 ALEXANDRE MATA MD, Ot I25.2 [...] ALEXANDRE MATA MD, Ot Z79.89 9 OTHER PRODUCTION SUPERINTENDENT (CURRENT) DRUG THERAPY 09/16/2019 ALEXANDRE MATA MD, [...] 09/16/2019 ROVENSTINE DO, CHEVY L Ot T82.191A [facility] COMPL OF CARDIAC PULSE GENERATOR [...] WITHOUT 09/19/2019 CRAIG KHANNA MD Ot T82.191A [facility] COMPL OF CARDIAC PULSE GENERATOR [...] 09/21/2019 ROVENSTINE DO, CHEVY L Ot T82.191A [facility] COMPL OF CARDIAC PULSE GENERATOR [...] Ot F17.210 NICOTINE DEPENDENCE, CIGARETTES, UNCOMPL 10/07/2019 UKRT TREJO MD Ot I10 ESSENTIAL (PRIMARY) HYPERTENSION [...] Ot Z98.51 TUBAL LIGATION STATUS 10/10/2019 LAMIN DALER MD, Ot E78.0 0 PURE HYPERCHOLESTEROLEMIA, UNSPECIFIED [...] UNSPECIFIED 10/12/2019 ROSANNE DUNN MD Ot T82.198A [facility] COMPL OF OTHER CARDIAC ELECTRONIC D 10/12/2019 ROSANNE DUNN MD Ot Z79.899 OTHER LONGTERM (CURRENT) DRUG THERAPY 10/12/2019 ROSANNE DUNN MD [...] UNSPECIFIED 10/12/2019 ROSANNE DUNN MD Ot T82.198A [facility] COMPL OF OTHER CARDIAC ELECTRONIC D 10/12/2019 ROSANNE DUNN MD Ot Z79.899 OTHER LONGTERM (CURRENT) DRUG THERAPY 10/12/2019 ROSANNE DUNN MD [...] UNSPECIFIED 10/24/2019 ROSANNE DUNN MD Ot T82.198A [facility] COMPL OF OTHER CARDIAC ELECTRONIC D 10/24/2019 ROSANNE DUNN MD Ot Z79.899 OTHER PRODUCTION SUPERINTENDENT (CURRENT) DRUG THERAPY 10/24/2019 ROSANNE DUNN MD [...] Z98.51 TUBAL LIGATION STATUS 10/28/2019 JEAN PAUL LIRINAO MD Ot E78.00 PURE HYPERCHOLESTEROLEMIA, UNSPECIFIED 10/28/2019 [...] 11/18/2019 SINCERE LILLY MD Ot Z79. 82 PRODUCTION SUPERINTENDENT (CURRENT) USE OF ASPIRIN 11/18/2019 SINCERE LILLY MD, Ot Z79.899 OTHER PRODUCTION SUPERINTENDENT (CURRENT) DRUG THERAPY 11/18/2019 SINCERE LILLY MD, [...] L Ot I25.2 OLD MYOCARDIAL INFARCTION 02/10/2020 LOPZE DO, TERESSA L Ot I48.9 1 UNSPECIFIED [...] Z95.8 10 PRESENCE OF AUTOMATIC (IMPLANTABLE) CARD 04/07/2020 CLAUDIA DELEON MD Ot G89.29 OTHER CHRONIC PAIN 04/07/2020 CLAUDIA DELEON MD Ot I1 0 ESSENTIAL (PRIMARY) HYPERTENSION 04/07/2020 CLAUDIA DELEON MD Ot I25.2 OLD MYOCARDIAL INFARCTION 04/07/2020 CLAUDIA DELEON MD Ot K21.9 GASTRO-ESOPHAGEAL REFLUX DISEASE WITHOUT 04/07/2020 CLAUDIA DELEON MD Ot M54.9 DORSALGIA, UNSPECIFIED 04/07/2020 CLAUDIA DELEON MD Ot M79.642 PAIN IN LEFT HAND 04/07/2020 CLAUDIA DELEON MD Ot S60.222A CONTUSION OF LEFT HAND, INITIAL ENCOUNTE 04/07/2020 CLAUDIA DELEON MD Ot W18.2XXA FALL IN (INTO) SHOWER OR EMPTY BATHTUB, 04/07/2020 CLAUDIA DEELON MD Ot Z2 3 ENCOUNTER FOR IMMUNIZATION 04/07/2020 CLAUDIA DELEON MD Ot Z77.22 CNTCT W AND EXPSR TO ENVIRON TOBACCO SMO 04/07/2020 CLAUDIA DELEON MD Ot Z82.49 FAMILY HX OF ISCHEM HEART DIS AND OTH DI 04/07/2020 CLAUDIA DELEON MD Ot Z88.6 ALLERGY STATUS TO ANALGESIC AGENT STATUS 04/07/2020 CLAUDIA DELEON MD Ot Z91.040 LATEX ALLERGY STATUS 04/07/2020 CLAUDIA DELEON MD Ot Z95.810 PRESENCE OF AUTOMATIC (IMPLANTABLE) CARD 04/08/2020 LOPEZ DO, TERESSA L Ot G89.2 9 OTHER CHRONIC PAIN 04/08/2020 LOPEZ DO, TERESSA L Ot I10 ESSENTIAL (PRIMARY) HYPERTENSION 04/08/2020 LOPEZ DO, TERESSA L Ot I25.2 OLD MYOCARDIAL INFARCTION 04/08/2020 LOPEZ DO, TERESSA L Ot K21.9 GASTRO-ESOPHAGEAL REFLUX DISEASE WITHOUT 04/08/2020 LOPEZ DO, TERESSA L Ot M54.9 DORSALGIA, UNSPECIFIED 04/08/2020 LOPEZ DO, TERESSA L Ot S61.412A LACERATION WITHOUT FOREIGN BODY OF LEFT 04/08/2020 LOPEZ DO, TERESSA L Ot W19.XXXA UNSPECIFIED FALL, INITIAL ENCOUNTER 04/08/2020 LOPEZ DO, TERESSA L Ot Z23 ENCOUNTER FOR IMMUNIZATION 04/08/2020 LOPEZ DO, TERESSA L Ot Z77.2 2 CNTCT W AND EXPSR TO ENVIRON TOBACCO SMO 04/08/2020 LOPEZ DO, TERESSA L Ot Z82.4 9 FAMILY HX OF [place]HE[place] HEART DIS AND OTH DI 04/08/2020 LOPEZ DO, TERESSA L Ot Z88.6 ALLERGY STATUS TO ANALGESIC AGENT STATUS 04/08/2020 LOPEZ DO, TERESSA L Ot Z91.0 40 LATEX ALLERGY STATUS 04/08/2020 LOPEZ DO, TERESSA L Ot Z91.8 1 HISTORY OF FALLING 04/08/2020 LOPEZ DO, TERESSA L Ot Z95.8 10 [...] ISCHEM HEART DIS AND OTH DI 04/10/2020 LOPEZ DO, TERESSA L Ot Z88.6 ALLERGY STATUS TO ANALGESIC AGENT STATUS 04/10/2020 LOPEZ DO, TERESSA L Ot Z91.0 40 LATEX ALLERGY STATUS 04/10/2020 LOPEZ DO, TERESSA L Ot Z91.8 1 HISTORY OF FALLING 04/10/2020 LOPEZ DO, TERESSA L Ot Z95.8 10 PRESENCE OF AUTOMATIC (IMPLANTABLE) CARD 04/27/2020 CLAUDIA DELEON MD Ot F17.210 NICOTINE DEPENDENCE, CIGARETTES, UNCOMPL 04/27/2020 CLAUDIA DELEON MD Ot G89.29 OTHER CHRONIC PAIN 04/27/2020 CLAUDIA DELEON MD Ot I1 0 ESSENTIAL (PRIMARY) HYPERTENSION 04/27/2020 CLAUDIA DELEON MD Ot I25.2 OLD MYOCARDIAL INFARCTION 04/27/2020 CLAUDIA DELEON MD Ot I48.91 UNSPECIFIED ATRIAL FIBRILLATION 04/27/2020 CLAUDIA DELEON MD Ot K21.9 GASTRO-ESOPHAGEAL REFLUX DISEASE WITHOUT 04/27/2020 CLAUDIA DELEON MD Ot M54.9 DORSALGIA, UNSPECIFIED 04/27/2020 CLAUDIA DELEON MD Ot M79.89 OTHER SPECIFIED SOFT TISSUE DISORDERS 04/27/2020 CLAUDIA DELEON MD Ot S63.502A UNSPECIFIED SPRAIN OF LEFT WRIST, INITIA 04/27/2020 CLAUDIA DELEON MD Ot W19.XXXA UNSPECIFIED FALL, INITIAL ENCOUNTER 04/27/2020 CLAUDIA DELEON MD Ot Z88.6 ALLERGY STATUS TO ANALGESIC AGENT STATUS 04/27/2020 CLAUDIA DELEON MD Ot Z90.710 ACQUIRED ABSENCE OF BOTH CERVIX AND UTER 04/27/2020 CLAUDIA DELEON MD Ot Z91.040 LATEX ALLERGY STATUS 04/27/2020 CLAUDIA DELEON MD Ot Z95.0 PRESENCE OF CARDIAC PACEMAKER 05/14/2020 NANCIE LINDER DO Ot F17.210 NICOTINE DEPENDENCE, CIGARETTES, UNCOMPL 05/14/2020 NANCIE LINDER DO Ot G89. 29 OTHER CHRONIC PAIN 05/14/2020 NANCIE LINDER DO Ot I10 ESSENTIAL (PRIMARY) HYPERTENSION 05/14/2020 NANCIE LINDER DO Ot I25. 2 OLD MYOCARDIAL INFARCTION 05/14/2020 NANCIE LINDER DO Ot K21. 9 GASTRO-ESOPHAGEAL REFLUX DISEASE WITHOUT 05/14/2020 NANCIE LINDER DO Ot M54. 9 DORSALGIA, UNSPECIFIED 05/14/2020 NANCIE LINDER DO Ot M79.632 PAIN IN LEFT FOREARM 05/14/2020 NANCIE LINDER DO Ot S50.11XA CONTUSION OF RIGHT FOREARM, INITIAL ENCO 05/14/2020 NANCIE LINDER DO Ot S59.912A UNSPECIFIED INJURY OF LEFT FOREARM, INIT 05/14/2020 NANCIE LINDER DO Ot S69.92XA UNSP INJURY OF LEFT WRIST, HAND AND FING 05/14/2020 NANCIE LINDER DO Ot W19.XXXA UNSPECIFIED FALL, INITIAL ENCOUNTER 05/14/2020 NANCIE LINDER DO Ot Z79. 1 LONGTERM (CURRENT) USE OF NON-STEROIDAL 05/14/2020 NANCIE LINDER DO Ot Z82. 49 FAMILY HX OF ISCHE[place] HEART DIS AND OTH DI 05/14/2020 NANCIE LINDER DO Ot Z88. 6 ALLERGY STATUS TO ANALGESIC AGENT STATUS 05/14/2020 NANCIE LINDER DO Ot Z91.040 LATEX ALLERGY STATUS 05/14/2020 NANCIE LINDER DO Ot Z95.810 PRESENCE OF AUTOMATIC (IMPLANTABLE) CARD 05/22/2020 BINU PUENTE DO Ot S52.92XA UNSP FRACTURE OF LEFT FOREARM, INIT FOR 05/22/2020 BINU PUENTE DO Ot S62.301A UNSP FRACTURE OF SECOND METACARPAL BONE, 05/22/2020 BINU PUENTE DO Ot W19.XXXA UNSPECIFIED FALL, INITIAL ENCOUNTER Procedures There is no data. Results Test [...] - 02/27/19 20:23 Sputum Gram stain 03-01-19604. NR Bacterial sputum culture - 02/27/19 20:2 3 FREE TEXT EXTERNAL SUSCEPTIBILITY REPORTED 03/03/19 12:05 NRG QUANTITY OF GROWTH Many NR Bacterial sputum culture [id number] NR Complete blood count (CBC) with automate [...] mg/dL 8.5-10.1 Automated blood complete blood count ( mogram) panel - 10/12/19 03:50 Blood leukocytes [...] ANTIGENS BY IA [facility] Blood CBC with ordered manual differenti al [...] NR Manual blood lymphocytes/100 leukocytes 15 % NR Blood lymphocytes variant/100 leukocytes 6 % [facility] Blood microcytes detection by light microscopy [facility] Influenza virus A and B antigen [...] Status Pt. Type Provider Facility Loc./Unit Complaint [id number] 05/08/2020 11:50:00 05/08/2020 23:59:5 9 [facility] Outpatient RICHARD HERMAN [facility] [id number] 01/09/2020 15:40:00 Document Registration [id number] 07/09/2019 13:00:00 Document Registration [id number] 01/08/2019 11:40:00 Document Registration [id number] 05/18/2020 13:52:00 23:59:59 CLS Outpatient BINU PUENTE DO Via [facility] RAD FS FX OF METACARPA L BONE LEFT [id number] 05/06/2020 15:11:00 16:28:00 DIS Outpatient NANCIE LINDER DO [facility] ER FS ARM PAIN [id number] 04/27/2020 17:26:00 18:50:00 DIS Emergency CLAUDIA DELEON MD [facility] ER FS FOREARM PAIN AND SWELLI NG [id number] 04/08/2020 19:20:00 20:05:00 DIS Emergency TERESSA LOPEZ DO [facility] ER FS HAND LACERATION/FELL [id number] 04/07/2020 20:22:00 06/23/2 020 21:03:00 DIS Emergency PANCHO DUNCAN, CLAUDIA W [facility] ER FS HAND INJ [id number] 02/10/2020 10:30:00 12:26:00 DIS Emergency LOPEZ DO, TERESSA Lezama [facility] ER FS STROKE SYMPTOMS [id number] 12/11/2019 16:28:00 18:34:00 DIS Emergency ROVENSTMICA DO, CHEVY L [facility] ER FS CHEST TIGHTNESS ,HIGH BLOOD PRESSURE,SOB [id number] 11/17/2019 23:45:00 11:32:00 DIS Inpatient MAXX DUNCAN, SINCERE Portillo [facility] ICU PACEMAKER WENT OFF [id number] 11/03/2019 17:44:00 19:06:00 DIS Emergency NAYELY DUNCAN, LAMIN Fox [facility] ER FS VOMITING,COUGH,SOB [id number] 10/20/2019 21:45:00 23:32:00 DIS Emergency DEANDRA DUNCAN, JEAN PAUL Lezama [facility] ER FS CHEST PAIN/RIGHT ARM PA IN [id number] 10/11/2019 06:00:00 11:49:00 DIS Inpatient SHAUN DUNCAN, ROSANNE Caicedo [facility] CSD CHEST PAIN,NEAR SYNCOPE,DEFRIBRILLATOR FIRING [id number] 10/10/2019 15:11:00 16:00:00 DIS Emergency MILTON DUNCAN, NEHA Mejia [facility] ER FS RT HAND WOUND CHECK [id number] 10/08/2019 18:38:00 20:25:00 DIS Emergency LAMIN ADLER MD [facility] ER FS R HAND BURN [id number] 10/08/2019 02:03:00 03:37:00 DIS Emergency MAYA DUNCAN, KURT Bradford [facility] ER FS HYPENTENSION [id number] 10/07/2019 15:09:00 16:45:00 DIS Emergency MAYA DUNCAN, KURT Bradford [facility] ER FS CHEST PAIN/SOA [id number] 10/05/2019 21:02:00 22:28:00 DIS Emergency DEANDRA DUNCAN, JEAN PAUL Lezama [facility] ER FS CHEST PAIN/SOB [id number] 10/03/2019 20:20:00 22:28:00 DIS Emergency CONNOR TALBERT CLAUDIA L [facility] ER FS CHEST PAIN [id number] 09/16/2019 16:26:00 18:14:00 DIS Emergency ROVENSTMICA TALBERT CHEVY Teja [facility] ER FS PACE MAKER ISSU E [id number] 09/11/2019 19:21:00 21:55:00 DIS Emergency CRAIG KHANNA MD [facility] ER FS IRR HEART RATE [id number] 09/08/2019 17:50:00 18:56:00 DIS Emergency XIOMARA DUNCAN, MCKENNA Gonzalez [facility] ER FS BACK PAIN [id number] 09/06/2019 11:14:00 14:16:00 DIS Outpatient ALEXANDRE MATA MD [facility] ENDO ESOPHAGEAL MASS PER CT/ COUGH [id number] 09/02/2019 05:47:00 23:59:59 CLS Outpatient ALEXANDRE MATA MD [facility] PREOP EGD [id number] 08/13/2019 23:45:00 18:08:00 DIS Inpatient CHRIS DUNCAN, MARIAJOSE Gimenez [facility] 4TH ACS1 ELEV TROPONIN, TASHI ST PAIN [id number] 08/07/2019 09:44:00 23:59:59 CLS Preadmit OTHER, UNLISTED [facility] RAD LUMBAR RADICULOPATHY [id number] 07/29/2019 19:22:00 20:38:00 DIS Emergency CRAIG KHANNA MD [facility] ER FS SOB,COUGH,CHEST TIGHTNE SS [id number] 07/20/2019 21:47:00 00:08:00 DIS Emergency NAYELY DUNCAN, LAMIN Fox [facility] ER FS CHEST PAIN; SOB [id number] 07/18/2019 20:40:00 00:41:00 DIS Emergency LAMIN ADLER MD [facility] ER FS CHEST PAIN,SOB [id number] 07/16/2019 09:35:00 12:39:00 DIS Emergency ARISTEO COYNE DO [facility] ER FS HIGH BP [id number] 04/21/2019 16:10:00 19:15:00 DIS Emergency MILTON DUNCAN, NEHA Mejia [facility] ER FS CHEST PAIN [id number] 03/07/2019 18:40:00 20:00:00 DIS Emergency ARISTEO COYNE DO [facility] ER FS PAIN [id number] 03/04/2019 21:34:00 04:07:00 DIS Emergency JERRI TALBERT [place] T [facility] ER FS CHEST PAIN AROUND PACE MAKER [id number] 02/27/2019 19:29:00 23:32:00 DIS Emergency LAMIN ADLER MD [facility] ER FS COUGH,DIZZY, CHEST PAIN , NAUSEA, RT EAR PAIN [id number] 01/10/2019 15:48:00 20:13:00 DIS Outpatient JERRI TALBERT [place] T [facility] ER FS CHEST PAIN, RT ARM NUMB [id number] 12/15/2018 13:56:00 13:56:00 CAN Preadmit NAYELY DUNCAN, LAMIN Pereira ia [facility] ER FS RT/LT HAND NUMBNESS [id number] 05/23/2020 21:57:[address] Emergency CLAUDIA RYNA DO [facility] ER FS LOWER BACK PAIN
[2020-05-23] MEDS ORDERED: NS IV 1000 ML 1,000 ML IV SCH (22:15)
[2020-05-23] MEDS ORDERED: KETOROLAC 30 MG/ML VIAL IVP ONE (22:15)
[2020-05-23 22:22] LABS: BASOPHILS % (AUTO) 0 % (0-10); EOSINOPHILS % (AUTO) 2 % (0-10); HEMATOCRIT 42 % (35-52); HEMOGLOBIN 13.7 G/DL (11.5-16.0); LYMPHOCYTES % (AUTO) 46 % (12-44); MEAN CORPUSCULAR HEMOGLOBIN 30 PG (25-34); MEAN CORPUSCULAR HGB CONC 32 G/DL (32-36); MEAN CORPUSCULAR VOLUME 93 FL (80-99); MEAN PLATELET VOLUME 9.8 FL (7.4-10.4); MONOCYTES % (AUTO) 7 % (0-12); NEUTROPHILS % (AUTO) 44 % (42-75); PLATELET COUNT 301 10^3/uL (130-400); RED CELL DISTRIBUTION WIDTH 15.4 % (10.0-14.5); WHITE BLOOD COUNT 6.6 10^3/uL (4.3-11.0)
[2020-05-23 22:23] LABS: EOSINOPHILS # (AUTO) 0.1 10^3/uL (0.0-0.3); MONOCYTES # (AUTO) 0.5 X 10^3 (0.0-1.0); NEUTROPHILS # (AUTO) 2.9 X 10^3 (1.8-7.8)
[2020-05-23] MEDS ORDERED: HYDROmorphone 2 MG/ML VIAL (DILAUDID) IV ONE (22:45)
[2020-05-23 22:47] LABS: BUN/CREATININE RATIO 21; CALCIUM 10.1 MG/DL (8.5-10.1); CARBON DIOXIDE 23 MMOL/L (21-32); CHLORIDE 100 MMOL/L (98-107); CREATININE SERUM 0.76 MG/DL (0.60-1.30); GFR ESTIMATED > 60; GLUCOSE 200 MG/DL (70-105); POTASSIUM 3.8 MMOL/L (3.6-5.0); SODIUM 138 MMOL/L (135-145)
[2020-05-23 23:01] LABS: BILIRUBIN,URINE NEGATIVE (NEGATIVE); CLARITY,URINE CLEAR; COLOR,URINE YELLOW; GLUCOSE, URINE (UA) NEGATIVE (NEGATIVE); KETONES,URINE NEGATIVE (NEGATIVE); NITRITE,URINE NEGATIVE (NEGATIVE); PROTEIN,URINE NEGATIVE (NEGATIVE)
[2020-05-23 23:02] LABS: BACTERIA,URINE TRACE /HPF; LEUKOCYTE ESTERASE ,URINE NEGATIVE (NEGATIVE); SQUAMOUS EPITHELIAL CELL,UR 25-50 /HPF; WBC,URINE 0-2 /HPF
[2020-05-23] MEDS ORDERED: MAGNESIUM CITRATE 300 ML BTL PO ONE (23:30)
[2020-05-23 23:38] VITALS: BP 150/101
--- NOTE | 2020-05-24 06:51 | Diagnostic Imaging Report ---
PROCEDURE: CT urinary tract, rule out kidney stone. TECHNIQUE: Multiple contiguous axial images were obtained through the abdomen and pelvis without the use of intravenous contrast. Auto Exposure Controls were utilized during the CT exam to meet ALARA standards for radiation dose reduction. INDICATION: Abdominal pain. No prior examination available for comparison. FINDINGS: The heart size is normal. The lung bases are clear. The liver is normal in size without focal lesions. Gallbladder surgically absent. No biliary duct dilatation. Spleen is normal. The pancreas and adrenal glands are unremarkable. Kidneys normal in appearance. The aorta is nonaneurysmal. The bowel gas pattern is nonspecific. There is a moderate amount of retained fecal material likely reflecting some degree of constipation. Some prominence of the common bile duct however this is likely secondary to previous cholecystectomy. There are degenerative changes in the spine. IMPRESSION: No acute abnormality in the abdomen or pelvis. Prominence of common bile duct presumably secondary to previous cholecystectomy. Moderate amount of retained fecal material likely reflecting some degree of constipation. Dictated by: Dictated on workstation # [id number]
== END 2020-05-23 23:38 | disposition home or self-care (01) ==
LOC: EDUNIT# 21:54 → ER FS 21:57
DX: K59.00 Constipation, unspecified (principal); I10 Essential (primary) hypertension; I25.2 Old myocardial infarction; K21.9 Gastro-esophageal reflux disease without esophagitis; G89.29 Other chronic pain; M54.9 Dorsalgia, unspecified; Z88.6 Allergy status to analgesic agent; Z91.040 Latex allergy status; Z95.810 Presence of automatic (implantable) cardiac defibrillator; Z82.49 Family history of ischemic heart disease and other diseases of the circulatory system
CPT/HCPCS: 36415; 74176; 80048; 81000; 85025

== ENCOUNTER 2020-05-25 16:06 | Emergency (ER) | payer BC ==
[2020-05-25 16:23] VITALS: BP 152/100
--- NOTE | 2020-05-25 16:26 | ED Abdominal Pain ---
General Chief Complaint: Abdominal/GI Problems Stated Complaint: ABD/BACK PAIN Source of Information: Patient Exam Limitations: No Limitations History of Present Illness Date Seen by Provider: May 25, 2020 Time Seen by Provider: 16:10 Initial Comments The patient is a 50-year-old female who presents for evaluation of right flank radiating to right lower quadrant abdominal pain which started 3-4 days ago. She was seen in this emergency department 2 days ago for the same complaint and had an essentially benign workup including a CT scan with IV contrast. There was some evidence of constipation and she states that she took the prescribed medications and had a bowel movement but that it did not help relieve her pain. The patient is prescribed chronic pain medications for chronic back pain. She denies vomiting but states that she has been having some nausea. She is noted to be tachycardic to the 130s 140s upon arrival. She states that she has felt warm at home but did not take her temperature. She denies urinary complaints, diarrhea, rectal bleeding, palpitations, dizziness, recent abdominal trauma, pelvic pain/bleeding/discharge, chest pain or shortness of breath, or cough. She states that she has had a total hysterectomy and a cholecystectomy in the past. Timing/Duration: 3-4 Days Severity/Quality: Moderate Location: RLQ, Flank (right) Radiation: RLQ Activities at Onset: None Associated Symptoms: Nausea/Vomiting (nausea, no vomiting) Allergies and Home Medications Allergies Coded Allergies: aspirin (Verified Allergy, Unknown, 03/07/19) latex (Verified Allergy, Unknown, 09/16/19) Home Medications Acetaminophen 500 Mg Tablet, 1,000 MG PO Q4H PRN for PAIN-MILD (1-4), (Reported) Albuterol Sulfate 1 Puff Puff, 2 PUFF INH Q4H PRN for SHORTNESS OF BREATH, (Reported) Amlodipine Besylate 10 Mg Tablet, 10 MG PO HS, (Reported) LAST FILLED #90 07-19- Clonidine HCl 0.1 Mg Tablet, 0.1 MG PO BID, (Reported) LAST FILLED #180 4-19 Cyclobenzaprine HCl 10 Mg Tablet, 10 MG PO BID PRN for MUSCLE SPASMS, (Reported) Diclofenac Sodium 75 Mg Tablet., 75 MG PO BID Prescribed by: CLAUDIA DELEON on 04/27/20 407 Diclofenac Sodium 75 Mg Tablet., 75 MG PO BID Prescribed by: CLAUDIA DELEON on 04/27/20 1847 Diphenhydramine HCl 25 Mg Capsule, 50 MG PO HS PRN for SLEEP, (Reported) Fluoxetine HCl 20 Mg Capsule, 20 MG PO BID, (Reported) Hydrocodone/Acetaminophen 1 Each Tablet, 1 EACH PO Q4H Prescribed by: NIYAH CANADA on 05/06/20 1621 Lisinopril 20 Mg Tablet, 20 MG PO HS, (Reported) LAST FILLED #90 07-19-19 Metoprolol Succinate 50 Mg Tab.er.24h, 50 MG PO BID, (Reported) LAST FILLED #180 10- Pantoprazole Sodium 40 Mg Tablet.dr, 40 MG PO DAILY, (Reported) Spironolactone 25 Mg Tablet, 25 MG PO DAILY, (Reported) LAST FILLED #90 07-19-19 Sucralfate 1 Gm Tablet, 1 GM PO BID PRN for STOMACH UPSET, (Reported) Patient Home Medication List Home Medication List Reviewed: Yes Review of Systems Review of Systems Constitutional: no symptoms reported EENTM: No Symptoms Reported Respiratory: No Symptoms Reported Cardiovascular: No Symptoms Reported Gastrointestinal: Abdominal Pain, Nausea Genitourinary: Flank Pain (right ) Musculoskeletal: no symptoms reported Skin: no symptoms reported Psychiatric/Neurological: No Symptoms Reported Endocrine: No Symptoms Reported Hematologic/Lymphatic: No Symptoms Reported All Other Systems Reviewed Negative Unless Noted: Yes Past Mjetsmz-Ybdrti-Gkxmks Hx Past Med/Social Hx: Reviewed Nursing Past Med/Soc Hx Patient Social History Alcohol Use: Denies Use Recreational Drug Use: No Smoking Status: Current Everyday Smoker Type Used: Cigarettes 2nd Hand Smoke Exposure: Yes Recent Foreign Travel: No Contact w/Someone Who Travel: No Recent Hopitalizations: No Physical Abuse: No Sexual Abuse: No Mistreated: No Fear: No Immunizations Up To Date Tetanus Booster (TDap): Unknown Date of Pneumonia Vaccine: Aug 14, 2016 Date of Influenza Vaccine: Jul 15, 2019 Seasonal Allergies Seasonal Allergies: No Past Medical History Surgeries: Yes Defibrillator, Gallbladder, Hysterectomy, Pacemaker, 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 Respiratory: Yes (Tobaccoism) Cardiac: Yes (pacemaker/defib; a-fib) Atrial Fibrillation, Heart Attack, High Cholesterol, Hypertension Neurological: No [employer] History: Hysterectomy, 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 Genitourinary: No Gastrointestinal: Yes (Esophageal Mass) Gastroesophageal Reflux, Hiatal Hernia Musculoskeletal: Yes (ruptured disks) Chronic Back Pain Endocrine: No HEENT: No Cancer: No Psychosocial: No Integumentary: No Blood Disorders: No Family Medical History Heart Disease Physical Exam Vital Signs Vital Signs - First Documented 05/25/20 16:23 Temp 36.7 Pulse 135 Resp 16 B/P (MAP) 152/100 (117) Pulse Ox 96 Capillary Refill : Height/Weight/BMI Height: 5'7.00" Weight: 200lbs. 0oz. [id number]; 36.00 BMI Method:Stated General Appearance: WD/WN, no apparent distress HEENT: PERRL/EOMI, pharynx normal Neck: full range of motion, supple Respiratory: lungs clear, no respiratory distress, no accessory muscle use Cardiovascular: regular rate, rhythm, no edema, no JVD Gastrointestinal: tenderness (RLQ) Back: CVA tenderness (R) Neurologic/Psychiatric: no motor/sensory deficits, alert, normal mood/affect, oriented x 3 Skin: normal color, warm/dry Focused Exam Lactate Level 05/25/20 16:45: Lactic Acid Level 1.36 Lactic Acid Level Laboratory Tests Test 05/25/20 16:45 Lactic Acid Level 1.36 MMOL/L (0.50-2.00) Progress/Results/Core Measures Results/Orders Lab Results Laboratory Tests Test 05/25/20 16:25 05/25/20 16:45 Range/Units White Blood Count 9.5 4.3-11.0 10^3/uL Red Blood Count 4.91 4.35-5.85 10^6/uL Hemoglobin 14.7 11.5-16.0 G/DL Hematocrit 46 35-52 % Mean Corpuscular Volume 93 80-99 FL Mean Corpuscular Hemoglobin 30 25-34 PG Mean Corpuscular Hemoglobin Concent 32 32-36 G/DL Red Cell Distribution Width 15.1 H 10.0-14.5 % Platelet Count 360 130-400 10^3/uL Mean Platelet Volume 9.6 7.4-10.4 FL Neutrophils (%) (Auto) 63 42-75 % Lymphocytes (%) (Auto) 30 12-44 % Monocytes (%) (Auto) 5 0-12 % Eosinophils (%) (Auto) 1 0-10 % Basophils (%) (Auto) 0 0-10 % Neutrophils # (Auto) 6.0 1.8-7.8 X 10^3 Lymphocytes # (Auto) 2.9 1.0-4.0 X 10^3 Monocytes # (Auto) 0.5 0.0-1.0 X 10^3 Eosinophils # (Auto) 0.1 0.0-0.3 10^3/uL Basophils # (Auto) 0.0 0.0-0.1 10^3/uL Sodium Level 137 135-145 MMOL/L Potassium Level 3.8 3.6-5.0 MMOL/L Chloride Level 100 98-107 MMOL/L Carbon Dioxide Level 22 21-32 MMOL/L Anion Gap 15 H 5-14 MMOL/L Blood Urea Nitrogen 21 H 7-18 MG/DL Creatinine 0.81 0.60-1.30 MG/DL Estimat Glomerular Filtration Rate > 60 BUN/Creatinine Ratio 26 Glucose Level 142 H 70-105 MG/DL Calcium Level 9.6 8.5-10.1 MG/DL Corrected Calcium 8.5-10.1 MG/DL Total Bilirubin 0.3 0.1-1.0 MG/DL Aspartate Amino Transf (AST/SGOT) 15 5-34 U/L Alanine Aminotransferase (ALT/SGPT) 14 0-55 U/L Alkaline Phosphatase 136 40-136 U/L Total Protein 8.0 6.4-8.2 GM/DL Albumin 4.7 H 3.2-4.5 GM/DL Amylase Level 16 L 25-125 U/L Lipase 14 8-78 U/L Lactic Acid Level 1.36 0.50-2.00 MMOL/L My Orders Orders - NIYAH CANADA DO Comprehensive Metabolic Panel (05/25/20 16:08) Lipase (05/25/20 16:08) Amylase (05/25/20 16:08) Ua Culture If Indicated (05/25/20 16:08) Ed Iv/Invasive Line Start (05/25/20 16:08) Cbc With Automated Diff (05/25/20 16:08) Ns Iv 1000 Ml (Sodium Chloride 0.9%) (05/25/20 16:30) Ketorolac Injection (Toradol Injection) (05/25/20 16:30) Ct Abdomen/Pelvis Wo (05/25/20 16:16) Ekg Tracing (05/25/20 16:16) Continuous Ekg Monitoring (05/25/20 16:16) Lactic Acid Analyzer (05/25/20 16:20) Medications Given in ED Current Medications Medications Dose Ordered Sig/Norma Route Start Time Stop Time Status Last Admin Dose Admin Ketorolac Tromethamine 30 mg ONCE ONCE IVP 05/25/20 16:30 05/25/20 16:31 DC 05/25/20 16:40 30 MG Vital Signs/I&O 05/25/20 16:23 Temp 36.7 Pulse 135 Resp 16 B/P (MAP) 152/100 (117) Pulse Ox 96 Progress Progress Note : Progress Note @1709 - patient updated on lab and imaging results which are acutely unremarkable. Advised the patient to follow with with her PCP X1 to 2 days. To further workup her symptoms the patient may require a colonoscopy. Patient advised to return to the emergency Department immediately for new or worsening symptoms. Comment @1618 - Sinus tachycardia, rate of 128, normal axis, no acute ischemic findings noted, no STEMI, reviewed and interpreted by myself Diagnostic Imaging Diagonstic Imaging: CT Comments [facility], [place] NAME: JENNIFER DICKERSON [facility] REC#: [id number] PT STATUS: REG ER : 1970 PHYSICIAN: NIYAH CANADA DO ADMIT DATE: 05/25/20/ER FS Signed Date of Exam:05/25/20 CT ABDOMEN/PELVIS WO PROCEDURE: CT abdomen and pelvis without contrast. TECHNIQUE: Multiple contiguous axial images were obtained through the abdomen and pelvis without the use of intravenous contrast. Auto Exposure Controls were utilized during the CT exam to meet ALARA standards for radiation dose reduction. INDICATION: Right lower quadrant abdominal pain. FINDINGS: Unenhanced images of the liver and spleen reveal no focal abnormality. Gallbladder is surgically absent with continued biliary ductal ectasia. There is no evidence of pancreatic, adrenal gland or splenic lesion on the noncontrast study. There is no evidence of renal calculus or hydronephrosis. No ureteric stone is seen. Moderate amount of colonic stool is noted. There is no evidence of localized inflammation or organized fluid collection. Unopacified bladder is stable and unremarkable in appearance. Lumbar degenerative findings are similar to the previous study. IMPRESSION: No CT evidence of acute abnormality or adverse change. Dictated by: Dictated on workstation # [id number] Dict: 05/25/20 1639 Trans: 05/25/20 1655 [facility] [id number] Interpreted by: RAMONA HERNANDEZ MD Electronically signed by: RAMONA HERNANDEZ MD 05/25/20 1655 Departure Impression Primary Impression: Abdominal pain Disposition: 01 HOME, SELF-CARE Condition: Stable Departure-Patient Inst. Decision time for Depature: 17:10 Referrals: RICHARD HERMAN MD (PCP/Family) Primary Care Physician Patient Instructions: Severe Abdominal Pain, Adult (DC), Stomach Ache and Stomach Upset Add. Discharge Instructions: Follow-up with your doctor in the next 1-2 days. Return to the emergency Department immediately for new or worsening symptoms. NIYAH CANADA DO May 25, 2020 16:26
[2020-05-25] MEDS ORDERED: NS IV 1000 ML 1,000 ML IV SCH (16:30)
[2020-05-25] MEDS ORDERED: KETOROLAC 30 MG/ML VIAL IVP ONE (16:30)
[2020-05-25 16:38] LABS: HEMATOCRIT 46 % (35-52); HEMOGLOBIN 14.7 G/DL (11.5-16.0); MEAN CORPUSCULAR HEMOGLOBIN 30 PG (25-34); WHITE BLOOD COUNT 9.5 10^3/uL (4.3-11.0)
[2020-05-25 16:39] LABS: BASOPHILS % (AUTO) 0 % (0-10); EOSINOPHILS # (AUTO) 0.1 10^3/uL (0.0-0.3); EOSINOPHILS % (AUTO) 1 % (0-10); LYMPHOCYTES # (AUTO) 2.9 X 10^3 (1.0-4.0); LYMPHOCYTES % (AUTO) 30 % (12-44); MEAN CORPUSCULAR HGB CONC 32 G/DL (32-36); MEAN CORPUSCULAR VOLUME 93 FL (80-99); MEAN PLATELET VOLUME 9.6 FL (7.4-10.4); MONOCYTES # (AUTO) 0.5 X 10^3 (0.0-1.0); MONOCYTES % (AUTO) 5 % (0-12); NEUTROPHILS % (AUTO) 63 % (42-75); PLATELET COUNT 360 10^3/uL (130-400); RED CELL DISTRIBUTION WIDTH 15.1 % (10.0-14.5)
--- NOTE | 2020-05-25 16:48 | Diagnostic Imaging Report ---
PROCEDURE: CT abdomen and pelvis without contrast. TECHNIQUE: Multiple contiguous axial images were obtained through the abdomen and pelvis without the use of intravenous contrast. Auto Exposure Controls were utilized during the CT exam to meet ALARA standards for radiation dose reduction. INDICATION: Right lower quadrant abdominal pain. FINDINGS: Unenhanced images of the liver and spleen reveal no focal abnormality. Gallbladder is surgically absent with continued biliary ductal ectasia. There is no evidence of pancreatic, adrenal gland or splenic lesion on the noncontrast study. There is no evidence of renal calculus or hydronephrosis. No ureteric stone is seen. Moderate amount of colonic stool is noted. There is no evidence of localized inflammation or organized fluid collection. Unopacified bladder is stable and unremarkable in appearance. Lumbar degenerative findings are similar to the previous study. IMPRESSION: No CT evidence of acute abnormality or adverse change. Dictated by: Dictated on workstation # [id number]
[2020-05-25 16:56] LABS: CHLORIDE 100 MMOL/L (98-107); POTASSIUM 3.8 MMOL/L (3.6-5.0); SODIUM 137 MMOL/L (135-145)
[2020-05-25 16:57] LABS: ALANINE AMINOTRANSFERASE 14 U/L (0-55); ALBUMIN 4.7 GM/DL (3.2-4.5); ALKALINE PHOSPHATASE 136 U/L (40-136); AMYLASE 16 U/L (25-125); BILIRUBIN,TOTAL 0.3 MG/DL (0.1-1.0); BUN/CREATININE RATIO 26; CALCIUM 9.6 MG/DL (8.5-10.1); CARBON DIOXIDE 22 MMOL/L (21-32); CREATININE SERUM 0.81 MG/DL (0.60-1.30); GFR ESTIMATED > 60; GLUCOSE 142 MG/DL (70-105); LIPASE 14 U/L (8-78)
--- OUTSIDE RECORDS SUMMARY | 2020-05-25 17:04 | XMS REPORT | Continuity of Care Document ---
Author Organization Unknown Address Unknown Phone Unavailable Allergies Active Description Code Type Severity Reaction Onset Reported/Identified Relationship to Patient Clinical Status Yes aspirin [id number] Drug Allergy Unknown N/A 03/07/2019 Yes morphine [id number] Drug Allergy Unknown N/A 04/21/2019 Yes morphine [id number] Drug Allergy Unknown Pt has received 09/06/2019 Yes latex [id number] Drug Allergy Unknown N/A 09/16/2019 Medications There [...] 03/05/2019 CHARLOTTE GUTHRIE DO T Ot T82.198A [facility] COMPL OF OTHER CARDIAC ELECTRONIC [...] 03/06/2019 JERRI TALBERT, CHARLOTTE T Ot T82.198A [facility] COMPL OF OTHER CARDIAC ELECTRONIC [...] ARISTEO Ot I25.10 ATHSCL HEART DISEASE OF [place] CORONARY 03/07/2019 COYNE , ARISTEO Ot R10.31 [...] 03/10/2019 JERRI TALBERT, CHARLOTTE T Ot T82.198A [facility] COMPL OF OTHER CARDIAC ELECTRONIC D 03/10/2019 JERRI TALBERT, CHARLOTTE T Ot Z77. 22 CNTCT W AND EXPSR TO ENVIRON TOBACCO SMO 03/10/2019 [facility], [place] T Ot Z88. 5 ALLERGY STATUS TO NARCOTIC AGENT STATUS 03/10/2019 JERRI TALBERT, CHARLOTTE T Ot Z88. 6 ALLERGY STATUS TO ANALGESIC AGENT STATUS 03/10/2019 JERRI TALBERT, CHARLOTTE T Ot Z95.810 PRESENCE OF AUTOMATIC (IMPLANTABLE) CARD 03/12/2019 DORETHA TALBERT, ARISTEO Ot I10 ESSENTIAL (PRIMARY) HYPERTENSION 03/12/2019 COYNE DO, ARISTEO Ot I25.10 ATHSCL HEART DISEASE OF [place] CORONARY 03/12/2019 COYNE DO, ARISTEO Ot R10.31 RIGHT LOWER QUADRANT PAIN 03/12/2019 COYNE DO, ARISTEO Ot Z77.22 CNTCT W AND EXPSR TO ENVIRON TOBACCO SMO 03/12/2019 COYNE DO, ARISTEO Ot Z88.5 ALLERGY STATUS TO NARCOTIC AGENT STATUS 03/12/2019 DORETHA TALBERT, ARISTEO Ot Z88.6 ALLERGY STATUS TO ANALGESIC AGENT STATUS 03/12/2019 [facility], ARISTEO Ot Z95.810 PRESENCE OF AUTOMATIC (IMPLANTABLE) CARD 03/12/2019 COYNE , ARISTEO Ot Z95.9 PRESENCE OF CARDIAC AND VASCULAR IMPLANT 04/21/2019 NEHA ROSE MD Ot F17.210 NICOTINE DEPENDENCE, CIGARETTES, UNCOMPL 04/21/2019 NEHA ROSE MD Ot I25. 10 ATHSCL HEART DISEASE OF [place] CORONARY 04/21/2019 NEHA ROSE MD Ot R07. [...] Ot I25. 10 ATHSCL HEART DISEASE OF [place] CORONARY 04/27/2019 NEHA ROSE MD Ot R07. [...] CNTCT W AND EXPSR TO ENVIRON TOBACCO [facility] 07/16/2019 HAWI DO, ARISTEO Ot Z88.5 ALLERGY STATUS TO NARCOTIC AGENT STATUS 07/16/2019 COYNE DO, ARISTEO Ot Z88.6 ALLERGY STATUS TO ANALGESIC AGENT STATUS 07/16/2019 HAWI DO, ARISTEO Ot Z90.710 ACQUIRED ABSENCE OF BOTH CERVIX AND UTER 07/16/2019 HAWI DO, ARISTEO Ot Z95.810 PRESENCE OF AUTOMATIC (IMPLANTABLE) CARD 07/16/2019 HAWI DO, ARISTEO Ot Z98.51 TUBAL LIGATION STATUS 07/18/2019 HAWI DO, ARISTEO Ot I10 ESSENTIAL (PRIMARY) HYPERTENSION 07/18/2019 HAWI DO, ARISTEO Ot I25.2 OLD MYOCARDIAL INFARCTION 07/18/2019 HAWI DO, ARISTEO Ot R03.0 ELEVATED BLOOD-PRESSURE READING, W/O GHADA 07/18/2019 HAWI DO, ARISTEO Ot R07.9 CHEST PAIN, UNSPECIFIED 07/18/2019 HAWI DO, ARISTEO Ot Z77.22 CNTCT W AND EXPSR TO ENVIRON TOBACCO [facility] 07/18/2019 HAWI DO, ARISTEO Ot Z88.5 ALLERGY STATUS TO NARCOTIC AGENT STATUS 07/18/2019 HAWI DO, ARISTEO Ot Z88.6 ALLERGY STATUS TO ANALGESIC AGENT STATUS 07/18/2019 HAWI DO, ARISTEO Ot Z90.710 ACQUIRED ABSENCE OF BOTH CERVIX AND UTER 07/18/2019 HAWI DO, ARISTEO Ot Z95.810 PRESENCE OF AUTOMATIC [...] MD Ot R07.9 CHEST PAIN, UNSPECIFIED 07/19/2019 LAMNI ADLER MD Ot Z77.2 2 CNTCT W [...] Ot I25. 2 OLD MYOCARDIAL INFARCTION 08/08/2019 CRAGI KHANNA MD A Ot J18. 9 PNEUMONIA, [...] MD Ot I25.10 ATHSCL HEART DISEASE OF [place] CORONARY 09/06/2019 ALEXANDRE MATA MD, Ot I25.2 [...] DISEASES OF STOMACH AND DUODENUM 09/06/2019 ALEXANDRE AMTA MD, Ot K44.9 DIAPHRAGMATIC HERNIA WITHOUT OBSTRUCTION 09/06/2019 ALEXANDRE MATA MD, Ot M54.9 DORSALGIA, UNSPECIFIED 09/06/2019 ALEXANDRE MATA MD, Ot Z79.89 9 OTHER [facility] (CURRENT) DRUG THERAPY 09/06/2019 ALEXANDRE MATA MD, [...] E78. 00 PURE HYPERCHOLESTEROLEMIA, UNSPECIFIED 09/11/2019 CRAIG KAHNNA MD Ot E83. 42 HYPOMAGNESEMIA 09/11/2019 CRAIG KHANNA MD Ot E87. 6 HYPOKALEMIA 09/11/2019 CRAIG KHANNA MD Ot I10 ESSENTIAL (PRIMARY) HYPERTENSION 09/11/2019 CRAIG KHANNA MD Ot I25. 2 OLD MYOCARDIAL INFARCTION 09/11/2019 CRAIG KHANNA MD A Ot K21. 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 6 HYPOKALEMIA 09/19/2019 CRIAG KHANNA MD Ot I10 ESSENTIAL (PRIMARY) HYPERTENSION 09/19/2019 CRAIG KHANNA MD, Ot I25. 2 OLD MYOCARDIAL INFARCTION 09/19/2019 CRAIG KHANNA MD Ot K21. 9 GASTRO-ESOPHAGEAL REFLUX DISEASE WITHOUT 09/19/2019 CRAIG KHANNA MD Ot T82.191A [facility] COMPL OF CARDIAC PULSE GENERATOR [...] 09/21/2019 ROVENSTINE DO, CHEVY L Ot T82.191A [facility] COMPL OF CARDIAC PULSE GENERATOR [...] R07 .9 CHEST PAIN, UNSPECIFIED 10/03/2019 CONNOR TABLERTCLAUDIA Ot Z77.22 CNTCT W AND EXPSR TO [...] CONTACT WITH OTHER HOT TAP-WATER, INITIA 10/10/2019 ALMIN ADLER MD Ot Z88.5 ALLERGY STATUS TO [...] UNSPECIFIED 10/12/2019 ROSANNE DUNN MD Ot T82.198A [facility] COMPL OF OTHER CARDIAC ELECTRONIC D 10/12/2019 ROSANNE DUNN MD Ot Z79.899 OTHER [facility] (CURRENT) DRUG THERAPY 10/12/2019 ROSANNE DUNN MD [...] UNSPECIFIED 10/12/2019 ROSANNE DUNN MD Ot T82.198A [facility] COMPL OF OTHER CARDIAC ELECTRONIC D 10/12/2019 ROSANNE DUNN MD Ot Z79.899 OTHER [facility] (CURRENT) DRUG THERAPY 10/12/2019 ROSANNE DUNN MD [...] EXPOSURE TO OTHER SPECIFIED FACTORS, SUB 10/15/2019 NEAH ROSE MD Ot Z77. 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 1 [facility] (CURRENT) USE OF NON-STEROIDAL 05/14/2020 NANCIE LINDER [...] OF GROWTH Many NR Bacterial sputum culture [id number] NR Complete blood count (CBC) with automate [...] INFLUENZA A AND B ANTIGENS BY IA [facility] Blood CBC with ordered manual differenti al [...] NR Blood lymphocytes variant/100 leukocytes 6 % [facility] Blood microcytes detection by light microscopy [facility] Influenza virus A and B antigen detectio n - 11/17/19 20:52 FLU RESULT NEGATIVE FOR INFLUENZA A AND B ANTIGENS BY IA [facility] Comprehensive metabolic panel - 11/17/19 20:52 [...] TIVE Urine propoxyphene detection NEGATIVE N EGATIVE Complete blood count (CBC) with automate d white blood cell (WBC) differential - 05/23/20 22:15 Blood leukocytes automated count (number/volume) 6.6 10*3/uL 4.3-11.0 Blood erythrocytes automated count (number/volume) 4.54 10*6/uL 4.35-5.85 Venous blood hemoglobin measurement (mass/volume) 13.7 g/dL 11.5-16.0 Blood hematocrit (volume fraction) 42 % 35-52 Automated erythrocyte mean corpuscular volume 93 [ foz_us] 80-99 Automated erythrocyte mean corpuscular h emoglobin (mass per erythrocyte) 30 pg 25-34 Automated erythrocyte mean corpuscular h emoglobin concentration measurement (mass/volume) 32 g/dL 32-36 Automated erythrocyte distribution width ratio 15. 4 % 10.0- 14.5 Automated blood platelet count (count/volume) 301 10*3/uL 130-400 Automated blood platelet mean volume measurement 9.8 [foz_us] 7.4-10.4 Automated blood neutrophils/100 leukocytes 44 % 42-75 Automated blood lymphocytes/100 leukocytes 46 % 12-44 Blood monocytes/100 leukocytes 7 % 0-12 Automated blood eosinophils/100 leukocytes 2 % 0-10 Automated blood basophils/100 leukocytes 0 % 0-10 Blood neutrophils automated count (number/volume) 2.9 10*3 1.8-7.8 Blood lymphocytes automated count (number/volume) 3.0 10*3 1.0-4.0 Blood monocytes automated count (number/volume) 0. 5 10*3 0.0-1.0 Automated eosinophil count 0.1 10*3/uL 0 .0-0.3 Automated blood basophil count (count/volume) 0.0 10*3/uL 0.0-0.1 Whole blood basic metabolic panel - 06/04 22:15 Serum or plasma sodium measurement (moles/volume) 138 mmol/L 135-145 Serum or plasma potassium measurement (moles/volume) 3.8 mmol/L 3.6-5.0 Serum or plasma chloride measurement (moles/volume) 100 mmol/L 98-107 Carbon dioxide 23 mmol/L 21-32 Serum or plasma anion gap determination (moles/volume) 15 mmol/L 5-14 Serum or plasma urea nitrogen measurement (mass/volume ) 16 mg/dL 7-18 Serum or plasma creatinine measurement (mass/volume) 0.76 mg/dL 0.60-1.30 Serum or plasma urea nitrogen/creatinine mass ratio 21 NRG Serum or plasma creatinine measurement w ith calculation of estimated glomerular filtration rate > NRG Serum or plasma glucose measurement (mass/volume) 200 mg/dL 70-105 Serum or plasma calcium measurement (mass/volume) 10.1 mg/dL 8.5-10.1 Complete urinalysis with reflex to cultu re - 05/23/20 22:50 Urine color determination YELLOW NRG Urine clarity determination CLEAR NR G Urine pH measurement by test strip 6.0 5-9 Specific gravity of urine by test strip >= 1.016-1.022 Urine protein assay by test strip, [...] cou nt by microscopy (number/high power field) [HPF] NRG Automated urine sediment leukocyte count by microscopy (number/high power field) [HPF] NRG Bacteria detection in urine sediment by light microsco py TRACE NRG Squamous epithelial cells detection in u rine sediment by light microscopy 25-50 NRG Crystals detection in urine sediment by light microsco py NONE NRG Casts detection in urine sediment by light microscopy NONE NRG Mucus detection in urine sediment by light microscopy NO NRG Complete urinalysis with reflex to culture NO NRG Complete blood count (CBC) with automate d white blood cell (WBC) differential - 05/25/20 16:25 Blood leukocytes automated count (number/volume) 9.5 10*3/uL 4.3-11.0 Blood erythrocytes automated count (number/volume) 4.91 10*6/uL 4.35-5.85 Venous blood hemoglobin measurement (mass/volume) 14.7 g/dL 11.5-16.0 Blood hematocrit (volume fraction) 46 % 35-52 Automated erythrocyte mean corpuscular volume 93 [ foz_us] 80-99 Automated erythrocyte mean corpuscular h emoglobin (mass per erythrocyte) 30 pg 25-34 Automated erythrocyte mean corpuscular h emoglobin concentration measurement (mass/volume) 32 g/dL 32-36 Automated erythrocyte distribution width ratio 15. 1 % 10.0- 14.5 Automated blood platelet count (count/volume) 360 10*3/uL 130-400 Automated blood platelet mean volume measurement 9.6 [foz_us] 7.4-10.4 Automated blood neutrophils/100 leukocytes 63 [...] 0.0 10*3/uL 0.0-0.1 Comprehensive metabolic panel - 05/25/20 16:25 Serum or plasma sodium measurement (moles/volume) 137 mmol/L 135-145 Serum or plasma potassium measurement (moles/volume) 3.8 mmol/L 3.6-5.0 Serum or plasma chloride measurement (moles/volume) 100 mmol/L 98-107 Carbon dioxide 22 mmol/L 21-32 Serum or plasma anion gap determination (moles/volume) 15 mmol/L 5-14 Serum or plasma urea nitrogen measurement (mass/volume ) 21 mg/dL 7-18 Serum or plasma creatinine measurement (mass/volume) 0.81 mg/dL 0.60-1.30 Serum or plasma urea nitrogen/creatinine mass ratio 26 NRG Serum or plasma creatinine measurement w ith calculation of estimated glomerular filtration rate > NRG Serum or plasma glucose measurement (mass/volume) 142 mg/dL 70-105 Serum or plasma calcium measurement (mass/volume) 9.6 mg/dL 8.5-10.1 Serum or plasma total bilirubin measurement (mass/volu me) 0.3 mg/dL 0.1-1.0 Serum or plasma alkaline phosphatase eugene surement (enzymatic activity/volume) 136 U/L 40-136 Serum or plasma aspartate aminotransfera se measurement (enzymatic activity/volume) 15 U/L 5-34 Serum or plasma alanine aminotransferase measurement (enzymatic activity/volume) 14 U/L 0-55 Serum or plasma protein measurement (mass/volume) 8.0 g/dL 6.4-8.2 Serum or plasma albumin measurement (mass/volume) 4.7 g/dL 3.2-4.5 Serum or plasma amylase measurement (enz ymatic activity/volume) - 05/25/20 16:25 Serum or plasma amylase measurement (enzymatic activit y/volume) 16 U/L 25-125 Lipase - 05/25/20 16:25 Lipase 14 U/L 8-78 Encounters ACCT No. Visit Date/Time Discharge Status Pt. Type Provider Facility Loc./Unit Complaint [id number] 05/08/2020 11:50:00 05/08/2020 23:59:5 9 CLS Outpatient [facility] [id number] 01/09/2020 15:40:00 Document Registration [id number] 07/09/2019 13:00:00 Document Registration [id number] 01/08/2019 11:40:00 Document Registration [id number] 05/23/2020 21:57:00 020 23:38:00 DIS Emergency CLAUDIA RYAN DO [facility] ER FS LOWER BACK PAIN [id number] 05/18/2020 13:52:00 23:59:59 CLS Outpatient STACIEMAURICE BINU TALBERT [facility] RAD FS FX OF [place] L BONE LEFT [id number] 05/06/2020 15:11:00 16:28:00 DIS Outpatient NANCIE LINDER DO [facility] ER FS ARM PAIN [id number] 04/27/2020 17:26:00 18:50:00 DIS Emergency PANCHO DUNCAN, CLAUDIA Case [facility] ER FS FOREARM PAIN AND SWELLI NG [id number] 04/08/2020 19:20:00 20:05:00 DIS Emergency TERESSA LOPEZ DO [facility] ER FS HAND LACERATION/FELL [id number] 04/07/2020 20:22:00 21:03:00 DIS Emergency PANCHO DUNCAN, CLAUDIA Case [facility] ER FS HAND INJ [id number] 02/10/2020 10:30:00 12:26:00 DIS Emergency TERESSA LOPEZ DO [facility] ER FS STROKE SYMPTOMS [id number] 12/11/2019 16:28:00 18:34:00 DIS Emergency ROVENSTINE CHEVY TALBERT [facility] ER FS CHEST TIGHTNESS ,HIGH BLOOD PRESSURE,SOB [id number] 11/17/2019 23:45:00 11:32:00 DIS Inpatient MAXX DUNCAN, SINCERE Portillo [facility] ICU PACEMAKER WENT OFF [id number] 11/03/2019 17:44:00 19:06:00 DIS Emergency NAYELY DUNCAN, LAMIN Fox [facility] ER FS VOMITING,COUGH,SOB [id number] 10/20/2019 21:45:00 23:32:00 DIS Emergency JEAN PAUL LIRIANO MD [facility] ER FS CHEST PAIN/RIGHT ARM PA IN [id number] 10/11/2019 06:00:00 11:49:00 DIS Inpatient SHAUN DUNCAN, ROSANNE Caicedo [facility] CSD CHEST PAIN,NEAR SYNCOPE,DEFRIBRILLATOR FIRING [id number] 10/10/2019 15:11:00 16:00:00 DIS Emergency MILTON DUNCAN, NEHA Mejia [facility] ER FS RT HAND WOUND CHECK [id number] 10/08/2019 18:38:00 20:25:00 DIS Emergency NAYELY DUNCAN, LAMIN Fox [facility] ER FS R HAND BURN [id number] 10/08/2019 02:03:00 03:37:00 DIS Emergency MAYA DUNCAN, KURT Bradford [facility] ER FS HYPENTENSION [id number] 10/07/2019 15:09:00 16:45:00 DIS Emergency MAYA DUNCAN, KURT Bradford [facility] ER FS CHEST PAIN/SOA [id number] 10/05/2019 21:02:00 22:28:00 DIS Emergency JEAN PAUL LIRIANO MD [facility] ER FS CHEST PAIN/SOB [id number] 10/03/2019 20:20:00 22:28:00 DIS Emergency CLAUDIA RYAN DO L [facility] ER FS CHEST PAIN [id number] 09/16/2019 16:26:00 18:14:00 DIS Emergency ROVENSTCHEVY NINO DO [facility] ER FS PACE MAKER ISSU E [id number] 09/11/2019 19:21:00 21:55:00 DIS Emergency CRAIG KHANNA MD [facility] ER FS IRR HEART RATE [id number] 09/08/2019 17:50:00 18:56:00 DIS Emergency MCKENNA SOLANO MD [facility] ER FS BACK PAIN [id number] 09/06/2019 11:14:00 14:16:00 DIS Outpatient ALEXANDRE MATA MD [facility] ENDO ESOPHAGEAL MASS PER CT/ COUGH [id number] 09/02/2019 05:47:00 23:59:59 CLS Outpatient ALEXANDRE MATA MD [facility] PREOP EGD [id number] 08/13/2019 23:45:00 18:08:00 DIS Inpatient CHRIS DUNCAN, MARIAJOSE Gimenez [facility] 4TH ACS1 ELEV TROPONIN, TASHI ST PAIN [id number] 08/07/2019 09:44:00 23:59:59 CLS Preadmit OTHER, UNLISTED [facility] RAD LUMBAR RADICULOPATHY [id number] 07/29/2019 19:22:00 20:38:00 DIS Emergency JEY DUNCAN, CRAIG Ozuna [facility] ER FS SOB,COUGH,CHEST TIGHTNE SS [id number] 07/20/2019 21:47:00 00:08:00 DIS Emergency LAMIN ADLER MD [facility] ER FS CHEST PAIN; SOB [id number] 07/18/2019 20:40:00 00:41:00 DIS Emergency LAMIN ADLER MD [facility] ER FS CHEST PAIN,SOB [id number] 07/16/2019 09:35:00 12:39:00 DIS Emergency ARISTEO COYNE DO [facility] ER FS HIGH BP [id number] 04/21/2019 16:10:00 19:15:00 DIS Emergency MILTON DUNCAN, NEHA Mejia [facility] ER FS CHEST PAIN [id number] 03/07/2019 18:40:00 20:00:00 DIS Emergency ARISTEO COYNE DO [facility] ER FS PAIN [id number] 03/04/2019 21:34:00 04:07:00 DIS Emergency CHARLOTTE GUTHRIE DO [facility] ER FS CHEST PAIN AROUND PACE MAKER [id number] 02/27/2019 19:29:00 23:32:00 DIS Emergency NAYELY DUNCAN, LAMIN Fox [facility] ER FS COUGH,DIZZY, CHEST PAIN , NAUSEA, RT EAR PAIN [id number] 01/10/2019 15:48:00 20:13:00 DIS Outpatient CHARLOTTE GUTHRIE DO [facility] ER FS CHEST PAIN, RT ARM NUMB [id number] 12/15/2018 13:56:00 13:56:00 CAN Preadmit NAYELY DUNCAN, LAMIN [facility] ER FS RT/LT HAND NUMBNESS [id number] 05/25/2020 16:08:[address] Emergency NANCIE LINDER DO [facility] ER FS ABD/BACK PAIN
== END 2020-05-25 17:23 | disposition home or self-care (01) ==
LOC: EDUNIT# 16:06 → ER FS 16:08
DX: R10.31 Right lower quadrant pain (principal); I10 Essential (primary) hypertension; I25.2 Old myocardial infarction; K21.9 Gastro-esophageal reflux disease without esophagitis; G89.29 Other chronic pain; M54.9 Dorsalgia, unspecified; F17.210 Nicotine dependence, cigarettes, uncomplicated; Z79.891 Long term (current) use of opiate analgesic; Z95.810 Presence of automatic (implantable) cardiac defibrillator; Z90.49 Acquired absence of other specified parts of digestive tract; Z88.6 Allergy status to analgesic agent; Z91.040 Latex allergy status; Z82.49 Family history of ischemic heart disease and other diseases of the circulatory system
CPT/HCPCS: 36415; 74176; 80053; 82150; 83605; 83690; 85025; 93005

== ENCOUNTER 2020-07-11 13:54 | Emergency (ER) | payer BC ==
[~2020-07-11] VITALS: Ht 175 cm; Wt 100.0 kg
[~2020-07-11 13:54] MED LIST changes: -HYDR-3812 PO; -PANT40TA3 PO; +PANT40TA52 PO
[2020-07-11 14:01] VITALS: BP 164/95
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
[2020-07-11] MEDS ORDERED: CYCL10TA9 PO ×2 (14:44→14:50)
== END 2020-07-11 14:52 | disposition home or self-care (01) ==
LOC: EDUNIT# 13:54 → ER FS 13:55
DX: S16.1XXA Strain of muscle, fascia and tendon at neck level, initial encounter (principal); I25.2 Old myocardial infarction; I10 Essential (primary) hypertension; K21.9 Gastro-esophageal reflux disease without esophagitis; F17.210 Nicotine dependence, cigarettes, uncomplicated; Z95.810 Presence of automatic (implantable) cardiac defibrillator; Z88.8 Allergy status to other drugs, medicaments and biological substances; Z82.49 Family history of ischemic heart disease and other diseases of the circulatory system; Z91.040 Latex allergy status; V59.9XXA Occupant (driver) (passenger) of pick-up truck or van injured in unspecified traffic accident, initial encounter
CPT/HCPCS: 72125

== ENCOUNTER 2020-09-05 21:59 | Emergency (ER) | payer BC ==
[~2020-09-05] VITALS: Ht 170 cm; Wt 95.0 kg
[~2020-09-05 21:59] MED LIST changes: +AMLO-251 PO; -AMLO10TA7 PO; +CLN.1T PO; -CLON0.1T PO
[2020-09-05] MEDS ORDERED: HYDROcodone/APAP 5 MG/325 MG (LORTAB) TAB PO ONE (22:30)
[2020-09-05] MEDS: NITROGLYCERIN 0.4 MG SL TABS BTL 25'S SL PRN ×2 (22:36→22:43)
[2020-09-05 22:41] LABS: BASOPHILS % (AUTO) 0 % (0-10); EOSINOPHILS # (AUTO) 0.2 10^3/uL (0.0-0.3); EOSINOPHILS % (AUTO) 2 % (0-10); HEMATOCRIT 41 % (35-52); HEMOGLOBIN 13.3 g/dL (11.5-16.0); LYMPHOCYTES # (AUTO) 2.6 10^3/uL (1.0-4.0); LYMPHOCYTES % (AUTO) 32 % (12-44); MEAN CORPUSCULAR HEMOGLOBIN 30 pg (25-34); MEAN CORPUSCULAR HGB CONC 32 g/dL (32-36); MEAN CORPUSCULAR VOLUME 92 fL (80-99); MEAN PLATELET VOLUME 9.9 fL (9.0-12.2); MONOCYTES # (AUTO) 0.4 10^3/uL (0.0-1.0); MONOCYTES % (AUTO) 5 % (0-12); NEUTROPHILS % (AUTO) 61 % (42-75); PLATELET COUNT 274 10^3/uL (130-400); WHITE BLOOD COUNT 8.2 10^3/uL (4.3-11.0)
[2020-09-05 22:50] LABS: ALBUMIN 4.3 GM/DL (3.2-4.5); CHLORIDE 104 MMOL/L (98-107); POTASSIUM 2.9 MMOL/L (3.6-5.0); SODIUM 142 MMOL/L (135-145)
[2020-09-05 22:51] LABS: CALCIUM 8.4 MG/DL (8.5-10.1)
[2020-09-05 22:52] LABS: GLUCOSE 104 MG/DL (70-105)
[2020-09-05 22:53] LABS: INR 0.9 (0.8-1.4); PROTHROMBIN TIME PATIENT 12.3 SEC (12.2-14.7); TOTAL PROTEIN 7.5 GM/DL (6.4-8.2)
[2020-09-05 22:54] LABS: CARBON DIOXIDE 21 MMOL/L (21-32)
[2020-09-05] MEDS ORDERED: NS IV 1000 ML 1,000 ML IV SCH (22:54)
[2020-09-05 22:55] LABS: BILIRUBIN,TOTAL 0.2 MG/DL (0.1-1.0)
[2020-09-05 22:56] LABS: ALKALINE PHOSPHATASE 123 U/L (40-136); GFR ESTIMATED > 60
[2020-09-05 22:57] LABS: BUN/CREATININE RATIO 11
[2020-09-05 22:59] LABS: ALANINE AMINOTRANSFERASE 16 U/L (0-55); MAGNESIUM 1.8 MG/DL (1.6-2.4)
[2020-09-05] MEDS ORDERED: POTASSIUM CL 10MEQ/50ML IVPB 50 ML IV ONE (23:00)
--- NOTE | 2020-09-05 23:39 | ED Chest Pain ---
General Chief Complaint: Lower Extremity Stated Complaint: L FOOT PAIN/SWELLING Nursing Triage Note: patient states TV fell on foot two days ago. Nursing Sepsis Screen: No Definite Risk Source: patient, old records Exam Limitations: no limitations History of Present Illness Date Seen by Provider: Sep 05, 2020 Time Seen by Provider: 22:10 Initial Comments This 50 year old woman presents to the ER with primary complaint of pain in the left ankle after a TV fell on her foot at a local retail store 2 days ago. She has pain with ambulation and weightbearing, especially around the medial malleolus. She also secondarily complains of some chest tightness and she is noted to have tachycardia. She has history of ventricular tachycardia and has a pacemaker/defibrillator. 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 She had a myocardial perfusion study a year ago and a cardiac cath about 18 months ago. No ischemia or obstructive disease was identified on these work-ups. Patient denies any alleviating or exacerbating factors. Review of chart notes that she has a chronic chest pain that is noncardiac in nature. Patient admits to this but states this pain is a little different than her usual chronic pain. Allergies and Home Medications Allergies Coded Allergies: aspirin (Verified Allergy, Unknown, 03/07/19) latex (Verified Allergy, Unknown, 09/16/19) Home Medications Acetaminophen 500 Mg Tablet, 1,000 MG PO Q4H PRN for PAIN-MILD (1-4), (Reported) Albuterol Sulfate 1 Puff Puff, 2 PUFF INH Q4H PRN for SHORTNESS OF BREATH, (Reported) Amlodipine Besylate 10 Mg Tablet, 10 MG PO HS, (Reported) LAST FILLED #90 07-19-19 Clonidine HCl 0.1 Mg Tablet, 0.1 MG PO BID, (Reported) LAST FILLED #180 07-19-19 Cyclobenzaprine HCl 10 Mg Tablet, 10 MG PO BID PRN for MUSCLE SPASMS, (Reported) Cyclobenzaprine HCl 10 Mg Tablet, 10 MG PO Q8H PRN for SPASMS Prescribed by: CHEVY EARLY on 07/11/20 1444 Cyclobenzaprine HCl 10 Mg Tablet, 10 MG PO Q8H PRN for SPASMS Prescribed by: CHEVY EARLY on 07/11/20 1450 Diclofenac Sodium 75 Mg Tablet., 75 MG PO BID Prescribed by: CLAUDIA DELEON on 04/27/20 1846 Diclofenac Sodium 75 Mg Tablet.dr, 75 MG PO BID Prescribed by: CLAUDIA DELEON on 04/27/20 184 Diphenhydramine HCl 25 Mg Capsule, 50 MG PO HS PRN for SLEEP, (Reported) Fluoxetine HCl 20 Mg Capsule, 20 MG PO BID, (Reported) Hydrocodone/Acetaminophen 1 Each Tablet, 1 EACH PO Q4H Prescribed by: NIYAH CANADA on 05/06/20 1621 Lisinopril 20 Mg Tablet, 20 MG PO HS, (Reported) LAST FILLED #90 104- Metoprolol Succinate 50 Mg Tab.er.24h, 50 MG PO BID, (Reported) LAST FILLED #180 10-4-19 Pantoprazole Sodium 40 Mg Tablet.dr, 40 MG PO DAILY, (Reported) Spironolactone 25 Mg Tablet, 25 MG PO DAILY, (Reported) LAST FILLED #90 10-4-19 Sucralfate 1 Gm Tablet, 1 GM PO BID PRN for STOMACH UPSET, (Reported) Patient Home Medication List Home Medication List Reviewed: Yes Review of Systems Review of Systems Constitutional: no symptoms reported EENTM: No Symptoms Reported Respiratory: No Symptoms Reported Cardiovascular: See HPI Gastrointestinal: No Symptoms Reported Genitourinary: No Symptoms Reported Musculoskeletal: see HPI Skin: no symptoms reported Psychiatric/Neurological: No Symptoms Reported Endocrine: No Symptoms Reported Hematologic/Lymphatic: No Symptoms Reported Past Kflzavr-Cbzvmp-Cvbwik Hx Past Med/Social Hx: Reviewed Nursing Past Med/Soc Hx Patient Social History Alcohol Use: Denies Use Recreational Drug Use: No Smoking Status: Current Everyday Smoker Type Used: Cigarettes 2nd Hand Smoke Exposure: Yes Recent Foreign Travel: No Contact w/Someone Who Travel: No Recent Infectious Disease Expo: No Recent Hopitalizations: No Immunizations Up To Date Tetanus Booster (TDap): Unknown Date of Pneumonia Vaccine: Aug 14, 2016 Date of Influenza Vaccine: Jul 15, 2019 Seasonal Allergies Seasonal Allergies: No Past Medical History Surgeries: Yes Defibrillator, Gallbladder, Hysterectomy, Pacemaker, 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 Respiratory: Yes (Tobaccoism) Cardiac: Yes (pacemaker/defib; a-fib, hx of VT) Atrial Fibrillation, Heart Attack, High Cholesterol, Hypertension 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 0oz. 90.188370sd; 32.00 BMI Method:Stated General Appearance: No Apparent Distress, WD/WN HEENT: PERRL/EOMI, Normal ENT Inspection Neck: Normal Inspection Respiratory: Lungs Clear, Normal Breath Sounds, No Accessory Muscle Use Cardiovascular: No Edema, No Murmur, Tachycardia Extremity: Normal Inspection, No Pedal Edema, Other (Tenderness over the bilateral left malleoli, medial greater than lateral) Neurologic/Psychiatric: Alert, Oriented x3, No Motor/Sensory Deficits, Normal Mood/Affect, laundry tub maker II-XII Norm as Tested Skin: Normal Color, Warm/Dry Progress/Results/Core Measures Results/Orders Lab Results Laboratory Tests Test 09/05/20 01:32 09/05/20 22:30 09/06/20 00:28 Range/Units Urine Opiates Screen POSITIVE H NEGATIVE Urine Oxycodone Screen POSITIVE H NEGATIVE Urine Methadone Screen NEGATIVE NEGATIVE Urine Propoxyphene Screen NEGATIVE NEGATIVE Urine Barbiturates Screen NEGATIVE NEGATIVE Ur Tricyclic Antidepressants Screen NEGATIVE NEGATIVE Urine Phencyclidine Screen NEGATIVE NEGATIVE Urine Amphetamines Screen NEGATIVE NEGATIVE Urine Methamphetamines Screen NEGATIVE NEGATIVE Urine Benzodiazepines Screen NEGATIVE NEGATIVE Urine Cocaine Screen NEGATIVE NEGATIVE Urine Cannabinoids Screen NEGATIVE NEGATIVE White Blood Count 8.2 4.3-11.0 10^3/uL Red Blood Count 4.50 3.80-5.11 10^6/uL Hemoglobin 13.3 11.5-16.0 g/dL Hematocrit 41 35-52 % Mean Corpuscular Volume 92 80-99 fL Mean Corpuscular Hemoglobin 30 25-34 pg Mean Corpuscular Hemoglobin Concent 32 32-36 g/dL Red Cell Distribution Width 14.1 10.0-14.5 % Platelet Count 274 130-400 10^3/uL Mean Platelet Volume 9.9 9.0-12.2 fL Immature Granulocyte % (Auto) 0 % Neutrophils (%) (Auto) 61 42-75 % Lymphocytes (%) (Auto) 32 12-44 % Monocytes (%) (Auto) 5 0-12 % Eosinophils (%) (Auto) 2 0-10 % Basophils (%) (Auto) 0 0-10 % Neutrophils # (Auto) 5.0 1.8-7.8 10^3/uL Lymphocytes # (Auto) 2.6 1.0-4.0 10^3/uL Monocytes # (Auto) 0.4 0.0-1.0 10^3/uL Eosinophils # (Auto) 0.2 0.0-0.3 10^3/uL Basophils # (Auto) 0.0 0.0-0.1 10^3/uL Immature Granulocyte # (Auto) 0.0 0.0-0.1 10^3/uL Prothrombin Time 12.3 12.2-14.7 SEC INR Comment 0.9 0.8-1.4 Activated Partial Thromboplast Time 27 24-35 SEC Sodium Level 142 135-145 MMOL/L Potassium Level 2.9 L 3.6-5.0 MMOL/L Chloride Level 104 98-107 MMOL/L Carbon Dioxide Level 21 21-32 MMOL/L Anion Gap 17 H 5-14 MMOL/L Blood Urea Nitrogen 9 7-18 MG/DL Creatinine 0.80 0.60-1.30 MG/DL Estimat Glomerular Filtration Rate > 60 BUN/Creatinine Ratio 11 Glucose Level 104 70-105 MG/DL Calcium Level 8.4 L 8.5-10.1 MG/DL Corrected Calcium 8.2 L 8.5-10.1 MG/DL Magnesium Level 1.8 1.6-2.4 MG/DL Total Bilirubin 0.2 0.1-1.0 MG/DL Aspartate Amino Transf (AST/SGOT) 13 5-34 U/L Alanine Aminotransferase (ALT/SGPT) 16 0-55 U/L Alkaline Phosphatase 123 40-136 U/L Myoglobin 67.4 10.0-92.0 NG/ML Troponin I < 0.028 < 0.028 <0.028 NG/ML B-Type Natriuretic Peptide 67.8 <100.0 PG/ML Total Protein 7.5 6.4-8.2 GM/DL Albumin 4.3 3.2-4.5 GM/DL Free Thyroxine 0.78 0.70-1.48 NG/DL TSH [place] Testing 0.10 L 0.35-4.94 UIU/ML D-Dimer 0.25 0.00-0.49 UG/ML Triglycerides Level 135 <150 MG/DL Cholesterol Level 252 H < 200 MG/DL LDL Cholesterol Direct 202 H 1-129 MG/DL VLDL Cholesterol 27 5-40 MG/DL HDL Cholesterol 54 40-60 MG/DL My Orders Orders - CHEN ALICEA MD Ankle, Left, 3 Views (09/05/20 22:18) Monitor-Rhythm Ecg Trace Only (09/05/20:18) Hydrocodone/Apap 5/325 Tablet (Lortab 5 (09/05/20 22:30) Cbc With Automated Diff (09/05/20:) Magnesium (09/05/20:21) Chest 1 View, Ap/Pa Only (09/05/20:21) Ekg Tracing (09/05/20:21) Comprehensive Metabolic Panel (09/05/20 22:) Myoglobin Serum (09/05/20 22:21) Protime With Inr (09/05/20 22:21) Partial Thromboplastin Time (09/05/20 22:21) O2 (09/05/20 22:21) Ed Iv/Invasive Line Start (09/05/20 22:21) Nitroglycerin 0.4 Mg Btl 25's (Nitrostat (09/05/20 22:30) BNP (09/05/20 22:21) Troponin I (09/05/20 22:30) Potassium Cl 10meq/50ml Ivpb (Kcl 10 Meq (09/05/20 23:00) Ns Iv 1000 Ml (Sodium Chloride 0.9%) (09/05/20 22:54) Troponin I (09/06/20 00:30) Clonidine Tablet (Catapres Tablet) (09/06/20 00:00) Thyroid Analyzer (09/05/20 23:52) Drug Screen Stat (Urine) (09/05/20 23:52) Oxycodone/Apap 5/325mg Tablet (Percocet (09/06/20 00:00) Potassium Chloride (Tablet) (Klor Con Ta (09/06/20 00:15) Potassium Chloride (Tablet) (K Dur Table (09/06/20 00:08) Fibrin Degradation Products (09/06/20 00:17) Lipid Panel (09/06/20 00:30) Free T4 (Free Thyroxine) (09/05/20 22:30) Ketorolac Injection (Toradol Injection) (09/06/20 01:15) Medications Given in ED Current Medications Medications Dose Ordered Sig/Norma Route Start Time Stop Time Status Last Admin Dose Admin Acetaminophen/ Hydrocodone Bitart 1 tab ONCE ONCE PO 09/05/20 22:30 09/05/20 22:31 DC 09/05/20 22:36 1 TAB Clonidine HCl 0.1 mg ONCE ONCE PO 09/06/20 00:00 09/06/20 00:01 DC 09/05/20 23:57 0.1 MG Ketorolac Tromethamine 30 mg ONCE ONCE IVP 09/06/20 01:15 09/06/20 01:16 DC 09/06/20 01:13 30 MG Nitroglycerin 0.4 mg UD PRN SL 09/05/20 22:30 09/06/20 02:01 DC 09/05/20 22:43 0.4 MG Oxycodone/ Acetaminophen 1 tab ONCE ONCE PO 09/06/20 00:00 09/06/20 00:01 DC 09/05/20 23:58 1 TAB Potassium Chloride 40 meq ONCE ONCE PO 09/06/20 00:15 09/06/20 00:16 DC 09/06/20 00:11 40 MEQ Potassium Chloride 50 ml @ 50 mls/hr ONCE ONCE IV 09/05/20 23:00 09/05/20 23:59 DC 09/05/20 23:07 50 MLS/HR Vital Signs/I&O 09/05/20 09/05/20 09/05/20 09/06/20 22:09 22:45 22:52 01:50 Temp 36.6 36.9 Pulse 118 110 108 81 Resp 20 20 B/P (MAP) 206/136 (159) 150/105 127/82 197/116 Pulse Ox 94 93 99 O2 Delivery Room Air Room Air Room Air Blood Pressure Mean: 97 Progress Progress Note : Progress Note X-ray revealed no fracture. Papo wrap was provided and patient declined crutches. Patient's secondary complaint of chest discomfort was evaluated further. She actually has chronic pain but states her pain today feels a little different. She reports her chest pain usually flares up with COPD and coughing. She was offered bronchodilators but declined. EKG was unremarkable. Troponin was negative. This was repeated 2 hours later which would be 4 hours after onset of the pain this evening. Repeat troponin was also negative. Tachycardia improved after IV fluids and treatment of pain. Patient received a hydrocodone followed by a Percocet for her ankle pain. She also received Toradol prior to discharge. Sublingual nitrogen was initially given which briefly improved her blood pressure. Blood pressure rebounded and an extra clonidine 0.1 mg dose was given. Blood pressures remain significantly elevated. Treatment of pain did not seem to impact the hypertension. Patient reports that her blood pressure is often markedly elevated. I reviewed the trends of her vital signs throughout her numerous visits. This is indeed true and she often has very high blood pressures. It was becoming evident that her atypical chest pain and hypertension are chronic in nature and are not likely to be resolved in this emergency room visit. She commits to close follow-up with her flavor tank tender on Monday. Potassium was replaced with 10 mEq IV followed by 40 mEq orally. Drug screen was negative except for opioids we administered. Initial ECG Impression Date: Sep 05, 2020 Initial ECG Impression Time: 22:28 Initial ECG Rate: 109 Initial ECG Rhythm: S.Tach Initial ECG Intervals: Normal Initial ECG Intervals Prolonged QT interval of 550 QTc. Comment Sinus tachycardia with no ST elevation or depression. Diagnostic Imaging Diagonstic Imaging: Xray Plain Films/CT/US/NM/MRI: chest Comments Chest x-ray viewed by me. Report not yet available. Compared with prior. No acute changes appreciated. Diagonstic Imaging: Xray Plain Films/CT/US/NM/MRI: ankle Comments Left ankle x-ray viewed by me and report reviewed. See report below: NAME: DIEGO CHU [facility] REC#: [id number] PT STATUS: REG ER : 02/05/1955 PHYSICIAN: CHEN ALICEA MD ADMIT DATE: 09/05/20/ER Signed Date of Exam:09/05/20 CT HEAD/CERVICAL SPINE WO INDICATION: Status post fall, trauma, pain. EXAMINATION: CT brain and CT cervical spine, 09/05/2020. All CT scans use one or more of the following dose optimizing techniques: automated exposure control, MA and/or KvP adjustment based on patient size and exam type or iterative reconstruction. FINDINGS: CT brain: Multiple axial images of the brain without contrast. There is no evidence for acute hemorrhage or infarct. There is no mass, mass effect, midline shift or hydrocephalus. The paranasal sinuses and mastoid air cells demonstrate no acute abnormality. IMPRESSION: No acute intracranial process. CT cervical spine: Minimal grade 1 anterolisthesis noted at C5-C6, likely degenerative in nature. No compression deformity is appreciated. Lung apices appear clear. Prevertebral soft tissues unremarkable. IMPRESSION: No acute process within the cervical spine. Dictated by: Dictated on workstation # [id number] Dict: 09/05/201917 Trans: 09/05/201933 PJE [id number] Interpreted by: CHAUNCEY PETERSON MD Electronically signed by: CHAUNCEY PETERSON MD 09/05/201933 Departure Impression Primary Impression: Left ankle sprain Qualified Codes: S93.402A - Sprain of unspecified ligament of left ankle, initial encounter Additional Impressions: Essential hypertension Atypical chest pain Hypokalemia Disposition: HOME, SELF-CARE Condition: Improved Departure-Patient Inst. Decision time for Depature: 01:37 Referrals: RICHARD HERMAN MD (PCP/Family) Primary Care Physician Patient Instructions: Ankle Sprain, Chest Pain, High Blood Pressure in Adults Add. Discharge Instructions: Rest, icing in 20-minute intervals, elevation, and compressive wrappings should help with pain and swelling in your ankle. Use Tylenol (acetaminophen) and/or ibuprofen to treat your pain further. Continue taking all of your cardiac medications as previously prescribed. Follow-up with your flavor tank tender as soon as possible on Monday morning. Return to the emergency room with worsening symptoms. All discharge instructions reviewed with patient and/or family. Voiced understanding. CHEN ALICEA MD Sep 05, 2020 23:39
[2020-09-06] MEDS ORDERED: oxyCODONE/APAP 5/325MG (PERCOCET 5) TABLET PO ONE
[2020-09-06] MEDS ORDERED: cloNIDine 0.1 MG (CATAPRES) TAB PO ONE
[2020-09-06] MEDS ORDERED: KCL 20 MEQ TAB (K-DUR) PO ONE (00:08)
[2020-09-06] MEDS ORDERED: KCL 10 MEQ TAB (MICRO K) PO ONE (00:15)
[2020-09-06 00:27] LABS: TSH (THYROID ANALYZER) 0.1 UIU/ML (0.35-4.94)
[2020-09-06 00:47] LABS: TRIGLYCERIDES 135 MG/DL (<150); VLDL CHOLESTEROL 27 MG/DL (5-40)
[2020-09-06 00:52] LABS: CHOLESTEROL 252 MG/DL (< 200)
[2020-09-06 00:53] LABS: HDL CHOLESTEROL 54 MG/DL (40-60)
[2020-09-06 01:00] LABS: FREE T4 (FREE THYROXINE) 0.78 NG/DL (0.70-1.48)
[2020-09-06] MEDS ORDERED: KETOROLAC 30 MG/ML VIAL IVP ONE (01:15)
[2020-09-06 01:50] VITALS: BP 197/116
[2020-09-06 02:19] LABS: AMPHETAMINE SCREEN, URINE NEGATIVE (NEGATIVE); BARBITURATE SCREEN URINE NEGATIVE (NEGATIVE); BENZODIAZEPINES SCREEN URINE NEGATIVE (NEGATIVE); CANNABINOID SCREEN, URINE NEGATIVE (NEGATIVE); COCAINE SCREEN URINE NEGATIVE (NEGATIVE); METHADONE STAT NEGATIVE (NEGATIVE); METHAMPHETAMINE SCREEN URINE S NEGATIVE (NEGATIVE); OPIATE SCREEN URINE POSITIVE (NEGATIVE); OXYCODONE STAT POSITIVE (NEGATIVE); PROPOXYPHENE STAT NEGATIVE (NEGATIVE); TRICYCLIC ANTIDEPRESSANTS SCRE NEGATIVE (NEGATIVE)
--- NOTE | 2020-09-06 06:42 | Diagnostic Imaging Report ---
EXAM: CHEST 1 VIEW, AP/PA ONLY INDICATION: Chest pain. COMPARISON: Chest radiograph 12/11/2019. FINDINGS: Normal heart size and central pulmonary vascularity. AICD. No focal pulmonary opacity. No pleural effusion or pneumothorax. No acute osseous findings. No significant change. IMPRESSION: No acute cardiopulmonary findings. Dictated by: Dictated on workstation # [id number]
--- NOTE | 2020-09-06 06:43 | Diagnostic Imaging Report ---
EXAM: ANKLE, LEFT, 3 VIEWS INDICATION: Left ankle pain. COMPARISON: None. FINDINGS: No fracture or malalignment. Moderate degenerative changes in the left ankle and left mid foot. Plantar and Achilles calcaneal heel spurs. Soft tissue shadows are unremarkable. IMPRESSION: 1. No acute radiographic findings. 2. Moderate degenerative changes in the left ankle and midfoot. Dictated by: Dictated on workstation # [id number]
== END 2020-09-06 01:50 | disposition home or self-care (01) ==
LOC: EDUNIT# 21:59 → ER 22:02
DX: S93.492A Sprain of other ligament of left ankle, initial encounter (principal); I10 Essential (primary) hypertension; R07.89 Other chest pain; G89.29 Other chronic pain; E87.6 Hypokalemia; M54.9 Dorsalgia, unspecified; K21.9 Gastro-esophageal reflux disease without esophagitis; I25.2 Old myocardial infarction; F17.210 Nicotine dependence, cigarettes, uncomplicated; Z82.49 Family history of ischemic heart disease and other diseases of the circulatory system; Z95.810 Presence of automatic (implantable) cardiac defibrillator; Z88.8 Allergy status to other drugs, medicaments and biological substances; Z91.040 Latex allergy status; Z79.891 Long term (current) use of opiate analgesic; W20.8XXA Other cause of strike by thrown, projected or falling object, initial encounter
CPT/HCPCS: 36415; 71045; 73610; 80053; 80061; 80306; 83735; 83874; 83880; 84439; 84443; 84484; 85025; 85379; 85610; 85730; 93005; 93041

== ENCOUNTER 2020-09-28 14:06 | Emergency (ER) | payer BC ==
[2020-09-28] MEDS ORDERED: FAMOTIDINE 20MG/2ML IV (PEPCID) IV STA (14:17)
--- NOTE | 2020-09-28 14:17 | ED Chest Pain ---
General Chief Complaint: Chest Pain Stated Complaint: CHEST PAIN; SOB Source: patient Exam Limitations: no limitations History of Present Illness Date Seen by Provider: Sep 28, 2020 Time Seen by Provider: 14:17 Initial Comments 50-year-old female presents with chest pain. Patient reports she was just sitting there when it "better" patient reports his cast substernal, feels like a elephant sitting on her chest. She has some shortness of breath. Patient reports previous cardiac history can't state exactly what it is. She has a defibrillator pacemaker. Patient also reports that she has a history of COPD, is wheezing. Continues to smoke about 10 cigarettes a day. She denies fever, chills, increased cough, nausea, vomiting, diaphoresis, loss of sense of taste or smell. Patient reports symptoms started just shortly prior to arrival. Allergies and Home Medications Allergies Coded Allergies: aspirin (Verified Allergy, Unknown, 03/07/19) latex (Verified Allergy, Unknown, 09/16/19) Home Medications Acetaminophen 500 Mg Tablet, 1,000 MG PO Q4H PRN for PAIN-MILD (1-4), (Reported) Albuterol Sulfate 1 Puff Puff, 2 PUFF INH Q4H PRN for SHORTNESS OF BREATH, (Reported) Amlodipine Besylate 10 Mg Tablet, 10 MG PO HS, (Reported) LAST FILLED #90 07-19-19 Clonidine HCl 0.1 Mg Tablet, 0.1 MG PO BID, (Reported) LAST FILLED #180 07-19-19 Cyclobenzaprine HCl 10 Mg Tablet, 10 MG PO BID PRN for MUSCLE SPASMS, (Reported) Cyclobenzaprine HCl 10 Mg Tablet, 10 MG PO Q8H PRN for SPASMS Prescribed by: CHEVY EARLY on 07/11/20 1444 Cyclobenzaprine HCl 10 Mg Tablet, 10 MG PO Q8H PRN for SPASMS Prescribed by: CHEVY EARLY on 07/11/20 1450 Diclofenac Sodium 75 Mg Tablet., 75 MG PO BID Prescribed by: CLAUDIA DELEON on 04/27/20 184 Diclofenac Sodium 75 Mg Tablet., 75 MG PO BID Prescribed by: CLAUDIA DELEON on 04/27/20 184 Diphenhydramine HCl 25 Mg Capsule, 50 MG PO HS PRN for SLEEP, (Reported) Doxycycline Hyclate 100 Mg Tablet, 100 MG PO BID Prescribed by: TERESSA LOPEZ on 09/28/20 1718 Fluoxetine HCl 20 Mg Capsule, 20 MG PO BID, (Reported) Hydrocodone/Acetaminophen 1 Each Tablet, 1 EACH PO Q4H Prescribed by: NIYAH CANADA on 05/06/20 1621 Lisinopril 20 Mg Tablet, 20 MG PO HS, (Reported) LAST FILLED #90 07-19-19 Metoprolol Succinate 50 Mg Tab.er.24h, 50 MG PO BID, (Reported) LAST FILLED #180 07-19-19 Pantoprazole Sodium 40 Mg Tablet.dr, 40 MG PO DAILY, (Reported) Prednisone 20 Mg Tab, 40 MG PO DAILY start on 09/29/20 Prescribed by: TERESSA LOPEZ on 09/28/20 171 Spironolactone 25 Mg Tablet, 25 MG PO DAILY, (Reported) LAST FILLED #90 07-19-19 Sucralfate 1 Gm Tablet, 1 GM PO BID PRN for STOMACH UPSET, (Reported) Patient Home Medication List Home Medication List Reviewed: Yes Review of Systems Review of Systems Constitutional: No chills, No fever, No malaise EENTM: No Symptoms Reported Respiratory: Denies Cough; Shortness of Air Cardiovascular: Chest Pain; Denies Edema, Denies Irregular Heart Rate, Denies Lightheadedness, Denies Palpitations, Denies Syncope Gastrointestinal: Denies Abdominal Pain, Denies Diarrhea, Denies Nausea, Denies Vomiting Genitourinary: No Symptoms Reported Musculoskeletal: no symptoms reported Skin: no symptoms reported Psychiatric/Neurological: No Symptoms Reported Endocrine: No Symptoms Reported Past Nstttyo-Gocasw-Aljjdn Hx Past Med/Social Hx: Reviewed Nursing Past Med/Soc Hx Patient Social History Alcohol Use: Denies Use Recreational Drug Use: No Type Used: Cigarettes 2nd Hand Smoke Exposure: Yes Recent Foreign Travel: No Contact w/Someone Who Travel: No Recent Hopitalizations: No Physical Abuse: No Sexual Abuse: No Mistreated: No Fear: No Immunizations Up To Date Tetanus Booster (TDap): Unknown Date of Pneumonia Vaccine: Aug 14, 2016 Date of Influenza Vaccine: Jul 15, 2019 Seasonal Allergies Seasonal Allergies: No Past Medical History Surgeries: Yes Defibrillator, Gallbladder, Hysterectomy, Pacemaker, 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 Respiratory: Yes (Tobaccoism) COPD Cardiac: Yes (pacemaker/defib; a-fib, hx of VT) Atrial Fibrillation, Heart Attack, High Cholesterol, Hypertension 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 0oz. 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 Norm as Tested Skin: Normal Color, Warm/Dry Progress/Results/Core Measures Results/Orders Lab Results Laboratory Tests Test 09/28/20 14:18 09/28/20 14:32 09/28/20 16:31 Range/Units White Blood Count 9.8 4.3-11.0 10^3/uL Red Blood Count 4.38 4.35-5.85 10^6/uL Hemoglobin 13.2 11.5-16.0 G/DL Hematocrit 41 35-52 % Mean Corpuscular Volume 93 80-99 FL Mean Corpuscular Hemoglobin 30 25-34 PG Mean Corpuscular Hemoglobin Concent 33 32-36 G/DL Red Cell Distribution Width 14.5 10.0-14.5 % Platelet Count 280 130-400 10^3/uL Mean Platelet Volume 10.2 7.4-10.4 FL Neutrophils (%) (Auto) 61 42-75 % Lymphocytes (%) (Auto) 31 12-44 % Monocytes (%) (Auto) 6 0-12 % Eosinophils (%) (Auto) 2 0-10 % Basophils (%) (Auto) 3 0-10 % Neutrophils # (Auto) 6.0 1.8-7.8 X 10^3 Lymphocytes # (Auto) 3.0 1.0-4.0 X 10^3 Monocytes # (Auto) 0.6 0.0-1.0 X 10^3 Eosinophils # (Auto) 0.2 0.0-0.3 10^3/uL Basophils # (Auto) 0.0 0.0-0.1 10^3/uL Sodium Level 141 135-145 MMOL/L Potassium Level 3.8 3.6-5.0 MMOL/L Chloride Level 103 98-107 MMOL/L Carbon Dioxide Level 26 21-32 MMOL/L Anion Gap 12 5-14 MMOL/L Blood Urea Nitrogen 16 7-18 MG/DL Creatinine 0.70 0.60-1.30 MG/DL Estimat Glomerular Filtration Rate > 60 BUN/Creatinine Ratio 23 Glucose Level 108 H 70-105 MG/DL Calcium Level 8.9 8.5-10.1 MG/DL Corrected Calcium 8.7 8.5-10.1 MG/DL Magnesium Level 1.8 1.6-2.4 MG/DL Total Bilirubin 0.2 0.1-1.0 MG/DL Aspartate Amino Transf (AST/SGOT) 13 5-34 U/L Alanine Aminotransferase (ALT/SGPT) 14 0-55 U/L Alkaline Phosphatase 169 H 40-136 U/L Myoglobin 36.4 10.0-92.0 NG/ML Troponin I < 0.30 < 0.30 <0.30 NG/ML C-Reactive Protein 1.17 H <0.50 MG/DL Pro-B-Type Natriuretic Peptide 191.0 H <75.0 PG/ML Total Protein 7.2 6.4-8.2 GM/DL Albumin 4.3 3.2-4.5 GM/DL Prothrombin Time 13.4 12.2-14.7 SEC INR Comment 1.0 0.8-1.4 Activated Partial Thromboplast Time 27 24-35 SEC D-Dimer 0.28 0.00-0.49 UG/ML My Orders Orders - LOPEZ,TERESSA L DO Cbc With Automated Diff (09/28/20 14:17) Magnesium (09/28/20 14:17) Chest 1 View Ap/Pa Only (09/28/20 14:17) Ekg Tracing (09/28/20 14:17) Comprehensive Metabolic Panel (09/28/20 14:17) Myoglobin Serum (09/28/20 14:17) Protime With Inr (09/28/20 14:17) Partial Thromboplastin Time (09/28/20 14:17) Monitor-Rhythm Ecg Trace Only (09/28/20 14:17) Lipid Panel (09/29/20 06:00) Ed Iv/Invasive Line Start (09/28/20 14:17) Troponin I Fs (09/28/20 14:17) Probnp Fs (09/28/20 14:17) Famotidine Injection (Pepcid Injection) (09/28/20 14:17) Albuterol/Ipra Inhalation Soln (Duoneb I (09/28/20 14:30) Svn Small Volume Nebulizer (09/28/20 14:17) Fibrin Degradation Products (09/28/20 14:52) Crp Fs (09/28/20 14:52) Ketorolac Injection (Toradol Injection) (09/28/20 14:52) Dexamethasone Injection (Decadron Inje (09/28/20 15:15) Albuterol/Ipra Inhalation Soln (Duoneb I (09/28/20 15:30) Svn Small Volume Nebulizer (09/28/20 15:26) Troponin I Fs (09/28/20 16:01) Ekg Tracing (09/28/20 16:51) Medications Given in ED Current Medications Medications Dose Ordered Sig/Norma Route Start Time Stop Time Status Last Admin Dose Admin Albuterol/ Ipratropium 3 ml ONCE ONCE INH 09/28/20 14:30 09/28/20 14:31 DC 09/28/20 14:26 3 ML Albuterol/ Ipratropium 3 ml ONCE ONCE INH 09/28/20 15:30 09/28/20 15:31 DC 09/28/20 15:34 3 ML Dexamethasone Sodium Phosphate 10 mg ONCE ONCE IV 09/28/20 15:15 09/28/20 15:16 DC 09/28/20 15:34 10 MG Vital Signs/I&O 09/28/20 14:14 Temp 36.4 Pulse 79 Resp 18 B/P (MAP) 137/73 (94) Pulse Ox 95 Progress Progress Note : Time: 17:07 Progress Note Patient's symptoms signally improved following breathing treatments and steroid. Patient wheezing improved. Patient's symptoms likely from COPD. She did admit later that she's been using her inhaler more. Patient had a negative heart catheter approximate 1 year ago, 2 negative EKGs, 2 negative troponins. I will discharge her with 3 days of prednisone, azithromycin. She should follow-up with her primary care provider in 4-5 days. Return to the ER as needed Initial ECG Impression Date: Sep 28, 2020 Initial ECG Impression Time: 14:10 Initial ECG Rhythm: Normal Sinus Initial ECG Intervals QTC 509, pr 203 Comment HR 80, NSR, pt borderline QT,HI, known hx of congenitial prolonged QT syndrome EKG : EKG Time: 16:59 Rate: 76 Rhythm: Normal Sinus Intervals: HI (200), QT (503) ECG Comparisson: Unchanged Comment hr 76, NSR, QTC 503, no acute changes Diagnostic Imaging Diagonstic Imaging: Xray Plain Films/CT/US/NM/MRI: chest Comments [facility], [place] NAME: JENNIFER DICKERSON [facility] REC#: [id number] PT STATUS: REG ER : 1970 PHYSICIAN: TERESSA LOPEZ DO ADMIT DATE: 09/28/20/ER FS Draft Date of Exam:09/28/20 CHEST 1 VIEW AP/PA ONLY INDICATION: Shortness of breath, chest pain. FINDINGS: The lungs are clear. ICD device is unremarkable. No free air beneath the diaphragms. IMPRESSION: No acute-appearing abnormality. Dictated on workstation # [id number] Dict: 09/28/20 1436 Trans: 09/28/20 1454 [id number] [id number] Interpreted by: RAMONA MANRIQUE Electronically signed by: Departure Impression Primary Impression: COPD with exacerbation Disposition: 01 HOME, SELF-CARE Condition: Stable Departure-Patient Inst. Referrals: RICHARD HERMAN MD (PCP/Family) Primary Care Physician Patient Instructions: Chronic Obstructive Pulmonary Disease (COPD) (DC), Exacerbation of COPD (DC) Add. Discharge Instructions: Follow-up with your primary care provider or Monday of this week for recheck of today symptoms Return to the ER as needed All discharge instructions reviewed with patient and/or family. Voiced understanding. Scripts Prednisone (Prednisone) 20 Mg Tab 40 MG PO DAILY, #6 TAB 0 Refills start on 09/29/20 Prov: TERESSA LOPEZ DO 09/28/20 Doxycycline Hyclate (Doxycycline Hyclate) 100 Mg Tablet 100 MG PO BID for 7 Days, #14 TAB 0 Refills Prov: TERESSA LOPEZ DO 09/28/20 TERESSA LOPEZ DO Sep 28, 2020 14:17
[2020-09-28 14:27] LABS: HEMOGLOBIN 13.2 G/DL (11.5-16.0); MEAN CORPUSCULAR HEMOGLOBIN 30 PG (25-34); WHITE BLOOD COUNT 9.8 10^3/uL (4.3-11.0)
[2020-09-28 14:28] LABS: BASOPHILS % (AUTO) 3 % (0-10); EOSINOPHILS # (AUTO) 0.2 10^3/uL (0.0-0.3); EOSINOPHILS % (AUTO) 2 % (0-10); HEMATOCRIT 41 % (35-52); LYMPHOCYTES % (AUTO) 31 % (12-44); MEAN CORPUSCULAR HGB CONC 33 G/DL (32-36); MEAN CORPUSCULAR VOLUME 93 FL (80-99); MEAN PLATELET VOLUME 10.2 FL (7.4-10.4); MONOCYTES # (AUTO) 0.6 X 10^3 (0.0-1.0); MONOCYTES % (AUTO) 6 % (0-12); NEUTROPHILS % (AUTO) 61 % (42-75); PLATELET COUNT 280 10^3/uL (130-400)
[2020-09-28] MEDS ORDERED: RT-ALBUTEROL/IPRATROPIUM 3 ML (DUONEB) VIAL INH ONE ×2 (14:30→15:30)
[2020-09-28 14:48] LABS: ALANINE AMINOTRANSFERASE 14 U/L (0-55); ALKALINE PHOSPHATASE 169 U/L (40-136); BILIRUBIN,TOTAL 0.2 MG/DL (0.1-1.0); BUN/CREATININE RATIO 23; CALCIUM 8.9 MG/DL (8.5-10.1); CARBON DIOXIDE 26 MMOL/L (21-32); CHLORIDE 103 MMOL/L (98-107); GFR ESTIMATED > 60; GLUCOSE 108 MG/DL (70-105); MAGNESIUM 1.8 MG/DL (1.6-2.4); POTASSIUM 3.8 MMOL/L (3.6-5.0); SODIUM 141 MMOL/L (135-145)
[2020-09-28 14:49] LABS: ALBUMIN 4.3 GM/DL (3.2-4.5); TOTAL PROTEIN 7.2 GM/DL (6.4-8.2)
[2020-09-28] MEDS ORDERED: KETOROLAC 30 MG/ML VIAL IVP STA (14:52)
--- NOTE | 2020-09-28 14:54 | Diagnostic Imaging Report ---
INDICATION: Shortness of breath, chest pain. FINDINGS: The lungs are clear. ICD device is unremarkable. No free air beneath the diaphragms. IMPRESSION: No acute-appearing abnormality. Dictated by: Dictated on workstation # [id number]
[2020-09-28 14:59] LABS: PROTHROMBIN TIME PATIENT 13.4 SEC (12.2-14.7)
[2020-09-28] MEDS ORDERED: PRD20T PO ×2 (17:11→17:18)
[2020-09-28] MEDS ORDERED: DOXY100T2 PO ×2 (17:11→17:18)
[2020-09-28 17:17] VITALS: BP 127/80
== END 2020-09-28 17:20 | disposition home or self-care (01) ==
LOC: EDUNIT# 14:06 → ER FS 14:10
DX: J44.1 Chronic obstructive pulmonary disease with (acute) exacerbation (principal); E66.9 Obesity, unspecified; K21.9 Gastro-esophageal reflux disease without esophagitis; I10 Essential (primary) hypertension; G89.29 Other chronic pain; M54.9 Dorsalgia, unspecified; I25.2 Old myocardial infarction; Z68.32 Body mass index [BMI] 32.0-32.9, adult; Z82.49 Family history of ischemic heart disease and other diseases of the circulatory system; Z95.810 Presence of automatic (implantable) cardiac defibrillator; Z77.22 Contact with and (suspected) exposure to environmental tobacco smoke (acute) (chronic); Z91.040 Latex allergy status; Z88.8 Allergy status to other drugs, medicaments and biological substances; Z79.52 Long term (current) use of systemic steroids; Z79.891 Long term (current) use of opiate analgesic
CPT/HCPCS: 36415; 71045; 80053; 83735; 83874; 83880; 84484; 85025; 85379; 85610; 85730; 86141; 93005; 93041

== ENCOUNTER 2020-10-01 21:43 | Emergency (ER) | payer BC ==
[~2020-10-01 21:43] MED LIST changes: +DOXY100T2 PO
[2020-10-01] MEDS ORDERED: oxyCODONE/APAP 5/325MG (PERCOCET 5) TABLET PO STA (22:02)
--- NOTE | 2020-10-01 22:09 | ED Lower Extremity ---
General Stated Complaint: LT FOOT PAIN Source: patient, old records History of Present Illness Date Seen by Provider: Oct 01, 2020 Time Seen by Provider: 21:46 Initial Comments 50 yo female presenting with complains of left foot and ankle pain that has worsened since injury 09/01. She had imaging done when the injury happened down in [facility] that did not show any acute fracture or dislocation. She was given an lalita bandage. She reports it has been swelling more and has a pain shooting up her leg like a heel spur. She denies any new injury. She reports calling Dr. Wilde in the clinic to see about getting CT of her ankle and foot but they have not called her back. She felt the pain was bad enough tonight that she came to the ED to be seen. Allergies and Home Medications Allergies Coded Allergies: aspirin (Verified Allergy, Unknown, 03/07/19) latex (Verified Allergy, Unknown, 09/16/19) Home Medications Acetaminophen 500 Mg Tablet, 1,000 MG PO Q4H PRN for PAIN-MILD (1-4), (Reported) Albuterol Sulfate 1 Puff Puff, 2 PUFF INH Q4H PRN for SHORTNESS OF BREATH, (Reported) Amlodipine Besylate 10 Mg Tablet, 10 MG PO HS, (Reported) LAST FILLED #90 10-4-19 Clonidine HCl 0.1 Mg Tablet, 0.1 MG PO BID, (Reported) LAST FILLED #180 10-4-19 Cyclobenzaprine HCl 10 Mg Tablet, 10 MG PO BID PRN for MUSCLE SPASMS, (Reported) Cyclobenzaprine HCl 10 Mg Tablet, 10 MG PO Q8H PRN for SPASMS Prescribed by: CHEVY EARLY on 07/11/20 1444 Cyclobenzaprine HCl 10 Mg Tablet, 10 MG PO Q8H PRN for SPASMS Prescribed by: CHEVY ZEESTINE on 07/11/20 1450 Diclofenac Sodium 75 Mg Tablet., 75 MG PO BID Prescribed by: CLAUDIA DELEON on 04/27/201845 Diclofenac Sodium 75 Mg Tablet., 75 MG PO BID Prescribed by: CLAUDIA DELEON on 04/27/201846 Diphenhydramine HCl 25 Mg Capsule, 50 MG PO HS PRN for SLEEP, (Reported) Doxycycline Hyclate 100 Mg Tablet, 100 MG PO BID Prescribed by: TERESSA LOPEZ on 09/28/20 1718 Fluoxetine HCl 20 Mg Capsule, 20 MG PO BID, (Reported) Hydrocodone/Acetaminophen 1 Each Tablet, 1 EACH PO Q4H Prescribed by: NIYAH CANADA on 05/06/20 1621 Lisinopril 20 Mg Tablet, 20 MG PO HS, (Reported) LAST FILLED #90 07-19-19 Metoprolol Succinate 50 Mg Tab.er.24h, 50 MG PO BID, (Reported) LAST FILLED #180 4- Oxycodone HCl/Acetaminophen 1 Each Tablet, 1 EACH PO Q6H PRN for PAIN-SEVERE (8- 10) Prescribed by: LAMIN ADLER on 10/01/20 2359 Pantoprazole Sodium 40 Mg Tablet.dr, 40 MG PO DAILY, (Reported) Prednisone 20 Mg Tab, 40 MG PO DAILY start on 09/29/20 Prescribed by: TERESSA LOPEZ on 09/28/20 1718 Spironolactone 25 Mg Tablet, 25 MG PO DAILY, (Reported) LAST FILLED #90 07-19-19 Sucralfate 1 Gm Tablet, 1 GM PO BID PRN for STOMACH UPSET, (Reported) Patient Home Medication List Home Medication List Reviewed: Yes Review of Systems Constitutional: No chills, No fever EENTM: no symptoms reported Respiratory: no symptoms reported Cardiovascular: no symptoms reported Gastrointestinal: no symptoms reported Genitourinary: no symptoms reported Musculoskeletal: see HPI Skin: no symptoms reported Psychiatric/Neurological: No Symptoms Reported Past Qgrqwjj-Efkfli-Ltxdvr Hx Past Med/Social Hx: Reviewed Nursing Past Med/Soc Hx Patient Social History Type Used: Cigarettes 2nd Hand Smoke Exposure: Yes Recent Foreign Travel: No Contact w/Someone Who Travel: No Recent Hopitalizations: No Immunizations Up To Date Tetanus Booster (TDap): Unknown Date of Pneumonia Vaccine: Aug 14, 2016 Date of Influenza Vaccine: Jul 15, 2019 Seasonal Allergies Seasonal Allergies: No Past Medical History Surgeries: Yes Defibrillator, Gallbladder, Hysterectomy, Pacemaker, 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 Respiratory: Yes (Tobaccoism) COPD Cardiac: Yes (pacemaker/defib; a-fib, hx of VT) Atrial Fibrillation, Heart Attack, High Cholesterol, Hypertension 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 0oz. 90.099044cy; 32.00 BMI Method:Stated General Appearance: WD/WN, mild distress Cardiovascular: normal peripheral pulses, regular rate, rhythm Ankles: left ankle pain (medial), left ankle soft tissue tenderness, left ankle swelling (trace amount ) Feet: left foot pain (medial), left foot soft tissue tenderness (medial), left foot swelling (trace medial) Neurologic/Psychiatric: alert, oriented x 3 Skin: normal color, warm/dry Progress/Results/Core Measures Results/Orders My Orders Orders - LAMIN ADLER MD Ct Extremity Lower Left Wo (10/01/20 22:02) Oxycodone/Apap 5/325mg Tablet (Percocet (10/01/20 22:02) Rx-Oxycodone/Apap 5-325 Mg (Rx-Percocet (10/02/20 00:00) Medications Given in ED Current Medications Medications Dose Ordered Sig/Norma Route Start Time Stop Time Status Last Admin Dose Admin Oxycodone/ Acetaminophen 1 ea Q6H PRN PO 10/02/20 00:00 10/02/20 00:04 DC 10/02/20 00:00 1 EA Vital Signs/I&O 10/01/20 10/02/20 21:52 00:05 Temp 36.8 36.8 Pulse 114 114 Resp 18 18 B/P (MAP) 227/126 (159) 227/126 (159) Pulse Ox 98 98 O2 Delivery Room Air Room Air Progress Progress Note #1: Progress Note xrays from initial injury showed bone spurs and degenerative changes but no fracture or dislocation. Will give a single pain pill and CT scan of the ankle/foot. Progress Note #2: Progress Note radiology report shows nondisplaced vertical fracture line down the base of the medial malleolus. Treat with pain meds, crutches, cam boot. Follow up with Ortho. ice and elevate Diagnostic Imaging Diagonstic Imaging: CT Plain Films/CT/US/NM/MRI: leg, ankle Comments there is a vertical fracture line down through the base of the medial malleolus. This is nondisplaced. No talar fracture noted. There is moderate arthritis. Read by radiologist Niyah Astorga M.D. Study read at 2655 and results faxed at [phone]. Reviewed: Reviewed [place] Study Departure Impression Primary Impression: Fracture of medial malleolus, left, closed Qualified Codes: S82.55XA - Nondisplaced fracture of medial malleolus of left tibia, initial encounter for closed fracture Additional Impression: Left ankle pain Qualified Codes: M25.572 - Pain in left ankle and joints of left foot; G89.29 - Other chronic pain Disposition: HOME, SELF-CARE Condition: Stable Departure-Patient Inst. Decision time for Depature: 23:54 Referrals: RICHARD WILDE MD (PCP) Primary Care Physician ESDRAS ALEXANDER MD Patient Instructions: Ankle Fracture ED, How to Use Crutches Add. Discharge Instructions: Keep the boot on at all times and treat it like a cast to give support to your ankle fracture until you see Orthopedics. Use the crutches and weight bear as tolerated with the crutches. Try to ice and elevate your foot to help with pain and swelling. Follow up with Orthopedics next week. If you want to see Dr. Alexander and [place] you can call [phone] to schedule an appointment for next week. Scripts Oxycodone HCl/Acetaminophen (Oxycodone-Acetaminophen 5-325) 1 Each Tablet 1 EACH PO Q6H PRN for PAIN-SEVERE (8-10) MDD 6 for 5 Days, #20 TAB 0 Refills Prov: LAMIN ADLER MD 10/01/20 LAMIN ADLER MD Oct 01, 2020 22:09
[2020-10-01] MEDS ORDERED: OXYC-471 PO (23:59)
[2020-10-02] MEDS ORDERED: RX-OXYCODONE/APAP 5-325 MG #4 TAB PK PO PRN
[2020-10-02 00:05] VITALS: BP 227/126
--- NOTE | 2020-10-02 09:10 | Diagnostic Imaging Report ---
PROCEDURE: CT left lower extremity without contrast. TECHNIQUE: Multiple contiguous axial images were obtained through the left lower extremity without the use of intravenous contrast. Sagittal and coronal reformations were then performed. Auto Exposure Controls were utilized during the CT exam to meet ALARA standards for radiation dose reduction. INDICATION: Foot and ankle pain. No prior studies are available for comparison. There is a vertically oriented fracture line extending through the distal tibia, medial side. This includes the medial malleolus. Fracture line extends into the ankle mortise. No displacement is identified. No abnormal widening of the ankle mortise is identified. The talar dome is smooth. No osteochondral lesion is identified. The distal fibula is intact. The calcaneus is intact. Cuboid and navicular as well as the cuneiforms appear to be intact. There are talonavicular joint degenerative changes. There is a well-corticated osseous density along the dorsum of the talonavicular joint consistent with an ununited osteophyte. There is a large plantar calcaneal spur. Posterior calcaneal spurring is present as well at the Achilles insertion. IMPRESSION: 1. Acute, vertically oriented fracture of the distal tibia, medial side including the medial malleolus. No displacement is detected. 2. Normal alignment at the ankle joint. The talus is intact. Dictated by: Dictated on workstation # [id number]
== END 2020-10-02 00:04 | disposition home or self-care (01) ==
LOC: EDUNIT# 21:43 → ER FS 21:44
DX: S82.52XA Displaced fracture of medial malleolus of left tibia, initial encounter for closed fracture (principal); I10 Essential (primary) hypertension; J44.9 Chronic obstructive pulmonary disease, unspecified; I25.2 Old myocardial infarction; G89.29 Other chronic pain; M54.9 Dorsalgia, unspecified; K21.9 Gastro-esophageal reflux disease without esophagitis; Z88.8 Allergy status to other drugs, medicaments and biological substances; Z91.040 Latex allergy status; Z77.22 Contact with and (suspected) exposure to environmental tobacco smoke (acute) (chronic); Z82.49 Family history of ischemic heart disease and other diseases of the circulatory system; Z95.810 Presence of automatic (implantable) cardiac defibrillator; Z79.52 Long term (current) use of systemic steroids; Z79.891 Long term (current) use of opiate analgesic; X58.XXXA Exposure to other specified factors, initial encounter
CPT/HCPCS: 73700; 99283; L2114

== ENCOUNTER 2020-10-09 20:45 | Emergency (ER) | payer BC ==
[~2020-10-09] VITALS: Ht 170.2 cm; Wt 97.3 kg
[~2020-10-09 20:45] MED LIST changes: +OXYC-471 PO
[2020-10-09] MEDS ORDERED: KETOROLAC 60 MG/2 ML VIAL IM STA (20:59)
--- NOTE | 2020-10-09 20:59 | ED Lower Extremity ---
General Chief Complaint: Lower Extremity Stated Complaint: FALL LEFT FOOT INJURY History of Present Illness Date Seen by Provider: Oct 09, 2020 Time Seen by Provider: 20:56 Initial Comments 50-year-old female presents with left ankle pain. Patient hurt her ankle initially on 09/05/20. Patient initially has a negative x-rays. She presented to the ER condition continue to have pain. On 10/01/[address] scan showed a slight fracture line and the medial malleolus. Patient was placed in a boot at that time. Patient presents today because she "bumped again out of the bathtub" and just can't take the pain anymore. Patient reports she is wanting a walking boot as instructed. No other acute complaints Allergies and Home Medications Allergies Coded Allergies: aspirin (Verified Allergy, Unknown, 03/07/19) latex (Verified Allergy, Unknown, 09/16/19) Home Medications Acetaminophen 500 Mg Tablet, 1,000 MG PO Q4H PRN for PAIN-MILD (1-4), (Reported) Albuterol Sulfate 1 Puff Puff, 2 PUFF INH Q4H PRN for SHORTNESS OF BREATH, (Reported) Amlodipine Besylate 10 Mg Tablet, 10 MG PO HS, (Reported) LAST FILLED #90 104-19 Clonidine HCl 0.1 Mg Tablet, 0.1 MG PO BID, (Reported) LAST FILLED #180 10-4-19 Cyclobenzaprine HCl 10 Mg Tablet, 10 MG PO BID PRN for MUSCLE SPASMS, (Reported) Cyclobenzaprine HCl 10 Mg Tablet, 10 MG PO Q8H PRN for SPASMS Prescribed by: CHEVY EARLY on 07/11/20 1444 Cyclobenzaprine HCl 10 Mg Tablet, 10 MG PO Q8H PRN for SPASMS Prescribed by: CHEVY EARLY on 07/11/20 1450 Diclofenac Sodium 75 Mg Tablet., 75 MG PO BID Prescribed by: CLAUDIA DELEON on 04/27/20 184 Diclofenac Sodium 75 Mg Tablet., 75 MG PO BID Prescribed by: CLAUDIA DELEON on 04/27/20 184 Diphenhydramine HCl 25 Mg Capsule, 50 MG PO HS PRN for SLEEP, (Reported) Doxycycline Hyclate 100 Mg Tablet, 100 MG PO BID Prescribed by: TERESSA LOPEZ on 09/28/20 1718 Fluoxetine HCl 20 Mg Capsule, 20 MG PO BID, (Reported) Hydrocodone/Acetaminophen 1 Each Tablet, 1 EACH PO Q4H Prescribed by: NIYAH CANADA on 05/06/20 1621 Lisinopril 20 Mg Tablet, 20 MG PO HS, (Reported) LAST FILLED #90 07-19-19 Metoprolol Succinate 50 Mg Tab.er.24h, 50 MG PO BID, (Reported) LAST FILLED #180 07-19-19 Oxycodone HCl/Acetaminophen 1 Each Tablet, 1 EACH PO Q6H PRN for PAIN-SEVERE (8- 10) Prescribed by: LAMIN ADLER on 10/01/20 2359 Pantoprazole Sodium 40 Mg Tablet.dr, 40 MG PO DAILY, (Reported) Prednisone 20 Mg Tab, 40 MG PO DAILY start on 09/29/20 Prescribed by: TERESSA LOPEZ on 09/28/20 1718 Spironolactone 25 Mg Tablet, 25 MG PO DAILY, (Reported) LAST FILLED #90 07-19-19 Sucralfate 1 Gm Tablet, 1 GM PO BID PRN for STOMACH UPSET, (Reported) Patient Home Medication List Home Medication List Reviewed: Yes Review of Systems Constitutional: No chills, No fever Respiratory: no symptoms reported Cardiovascular: no symptoms reported Gastrointestinal: no symptoms reported Genitourinary: no symptoms reported Musculoskeletal: see HPI Skin: no symptoms reported Psychiatric/Neurological: No Symptoms Reported Past Hhteydr-Jcnsig-Nbezau Hx Past Med/Social Hx: Reviewed Nursing Past Med/Soc Hx Patient Social History Type Used: Cigarettes 2nd Hand Smoke Exposure: Yes Recent Foreign Travel: No Contact w/Someone Who Travel: No Recent Hopitalizations: No Immunizations Up To Date Tetanus Booster (TDap): Unknown Date of Pneumonia Vaccine: Aug 14, 2016 Date of Influenza Vaccine: Jul 15, 2019 Seasonal Allergies Seasonal Allergies: No Past Medical History Surgeries: Yes Defibrillator, Gallbladder, Hysterectomy, Pacemaker, 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 Respiratory: Yes (Tobaccoism) COPD Cardiac: Yes (pacemaker/defib; a-fib, hx of VT) Atrial Fibrillation, Heart Attack, High Cholesterol, Hypertension 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 0oz. 90.731132py; 32.00 BMI Method:Stated General Appearance: WD/WN, no apparent distress Neck: full range of motion, supple Cardiovascular: normal peripheral pulses, regular rate, rhythm Respiratory: lungs clear, normal breath sounds Hips: bilateral hip non-tender Legs: bilateral leg non-tender Knees: bilateral knee non-tender Ankles: left ankle other (walking boot in place) Neurologic/Psychiatric: alert, oriented x 3 Skin: normal color, warm/dry Progress/Results/Core Measures Results/Orders My Orders Orders - TERESSA LOPEZ DO Ankle 3 View Left (10/09/20 20:59) Ketorolac Injection (Toradol Injection) (10/09/20 20:59) Tramadol Tablet (Ultram Tablet) (10/09/20 21:45) Ortho Glass (10/09/20 21:42) Lortab 5mg Po (10/09/20 21:45) Vital Signs/I&O 10/09/20 20:56 Temp 36.0 Pulse 105 Resp 18 B/P (MAP) 178/122 (140) Pulse Ox 99 O2 Delivery Room Air Diagnostic Imaging Diagonstic Imaging: Xray Plain Films/CT/US/NM/MRI: ankle Comments [facility], [place] NAME: JENNIFER DICKERSON [facility] REC#: [id number] PT STATUS: REG ER : 1970 PHYSICIAN: TERESSA LOPEZ DO ADMIT DATE: 10/09/20/ER FS Draft Date of Exam:10/09/20 ANKLE 3 VIEW LEFT EXAMINATION: Left ankle 3 views. HISTORY: Trauma. COMPARISON: 09/05/2020. FINDINGS: There is a new vertically oriented fracture of the right medial malleolus extending into the ankle joint. There is no displacement. There is overlying soft tissue swelling. Mortise is intact. 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 There is a small heel spur. IMPRESSION: New vertically oriented fracture of the right medial malleolus extending into the ankle joint without displacement. Dictated on workstation # [id number] Dict: 10/09/202125 Trans: 10/09/202132 [id number] Interpreted by: CAMILLA JERNIGAN MD Electronically signed by: Reviewed: Reviewed by Me, Reviewed/Discussed Departure Impression Primary Impression: Fracture of medial malleolus, left, closed Qualified Codes: S82.55XG - Nondisplaced fracture of medial malleolus of left tibia, subsequent encounter for closed fracture with delayed healing Disposition: HOME, SELF-CARE Condition: Stable Departure-Patient Inst. Referrals: RICHARD HERMAN MD (PCP/Family) Primary Care Physician Patient Instructions: Ankle Fracture ED Add. Discharge Instructions: Follow-up with orthopedic surgery next week for reevaluation and probable casting Do not bear weight on left leg Keep left leg elevated All discharge instructions reviewed with patient and/or family. Voiced understanding. Scripts Hydrocodone/Acetaminophen (Hydrocodone-Acetamin 5-325 mg) 1 Each Tablet 1 EACH PO Q8H PRN for PAIN-MODERATE (5-7), #10 TAB Prov: TERESSA LOPEZ DO 10/09/20 TERESSA LOPEZ DO Oct 09, 2020 20:59
--- NOTE | 2020-10-09 21:35 | Diagnostic Imaging Report ---
EXAMINATION: Left ankle 3 views. HISTORY: Trauma. COMPARISON: 09/05/2020. FINDINGS: There is a new vertically oriented fracture of the right medial malleolus extending into the ankle joint. There is no displacement. There is overlying soft tissue swelling. Mortise is intact. 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 There is a small heel spur. IMPRESSION: New vertically oriented fracture of the right medial malleolus extending into the ankle joint without displacement. Dictated by: Dictated on workstation # [id number]
[2020-10-09] MEDS ORDERED: HYDROcodone/APAP 5 MG/325 MG (LORTAB) TAB PO ONE (21:45)
[2020-10-09] MEDS ORDERED: ACHD5005 PO (21:46)
[2020-10-09 22:02] VITALS: BP 178/122
[2020-10-10] MEDS ORDERED: ACHD5005 PO (10:10)
== END 2020-10-09 22:02 | disposition home or self-care (01) ==
LOC: EDUNIT# 20:45 → ER FS 20:50
DX: S82.52XA Displaced fracture of medial malleolus of left tibia, initial encounter for closed fracture (principal); I10 Essential (primary) hypertension; I25.2 Old myocardial infarction; J44.9 Chronic obstructive pulmonary disease, unspecified; K21.9 Gastro-esophageal reflux disease without esophagitis; G89.29 Other chronic pain; M54.9 Dorsalgia, unspecified; Z91.040 Latex allergy status; Z88.8 Allergy status to other drugs, medicaments and biological substances; Z77.22 Contact with and (suspected) exposure to environmental tobacco smoke (acute) (chronic); Z95.810 Presence of automatic (implantable) cardiac defibrillator; Z82.49 Family history of ischemic heart disease and other diseases of the circulatory system; Z79.52 Long term (current) use of systemic steroids; Z79.891 Long term (current) use of opiate analgesic; W18.00XA Striking against unspecified object with subsequent fall, initial encounter
CPT/HCPCS: 29505; 73610

== ENCOUNTER 2020-10-26 11:36 | Emergency (ER) | payer BC ==
[2020-10-26] MEDS ORDERED: HYDROcodone/APAP 5 MG/325 MG (LORTAB) TAB PO ONE (12:30)
--- NOTE | 2020-10-26 12:36 | Diagnostic Imaging Report ---
INDICATION: Fall. Injury. Pain. COMPARISON: None FINDINGS: Multiple radiographic views of the right ankle were obtained. There is comminuted fracture of the distal fibular shaft. There is mild angulation with the apex projecting laterally. Note is also made of nondisplaced longitudinally oriented fracture of the posterior malleolus of the distal tibia. This is best visualized on the lateral view. Tibiotalar joint space is maintained. There is moderate soft tissue swelling. No unexpected radiopaque foreign bodies are seen. IMPRESSION: 1. Acute fractures of the distal right tibia and fibula as described above. Dictated by: Dictated on workstation # [id number]
[2020-10-26] MEDS ORDERED: morphine INJ 10 MG/ML 1ML (SYR OR VIAL) IM STA (12:46)
[2020-10-26] MEDS ORDERED: ONDANSETRON 4 MG (ZOFRAN) ORAL DISSOLVE TAB PO STA (12:46)
--- NOTE | 2020-10-26 13:53 | Diagnostic Imaging Report ---
EXAMINATION: Left ankle, 3 views, at 1:04 PM. INDICATION: Followup fracture. FINDINGS: The prior exam of 10/09/2020 noted a vertically oriented fracture of the medial malleolus of the distal tibia. On this study, the fracture lines are still evident although a small amount of healing callus formation has developed. The main fracture fragments are unchanged in alignment. No other fracture or acute bony abnormality is identified. The ankle mortise is not widened and the talar dome is smooth. There is still mild soft tissue edema over the medial malleolus. IMPRESSION: 1. The fracture of the medial malleolus seen previously is again evident. A small amount of healing callus formation has developed but the fracture lines are still clearly visible. 2. There is no acute bony abnormality noted. Dictated by: Dictated on workstation # [id number]
--- NOTE | 2020-10-26 14:02 | ED Lower Extremity ---
General Chief Complaint: Lower Extremity Stated Complaint: RT ANKLE INJ Nursing Triage Note: Fell about 1 hour prior to arrival and twisted R ankle. Is having swelling and pain to R ankle and foot area. Has a walking boot on left foot due to it being broken. Is seeing an orthopedic doctor in [place]. Nursing Sepsis Screen: No Definite Risk Source: patient History of Present Illness Date Seen by Provider: Oct 26, 2020 Time Seen by Provider: 12:00 Initial Comments Patient is a 50-year-old female who presents with right ankle injury after falling from standing and twisting right ankle. Patient is currently wearing a left orthopedic boot for treatment of a ankle fracture from 2 months ago. Parish noel is scheduled to see orthopedic surgeon tomorrow. Denies other injury or pain complain. Pain is described as moderate severe and patient is unable to weight-bear. Onset: just prior to arrival Pain/Injury Location: right ankle Method of Injury: twisted Modifying Factors: Improves With Immobilization Allergies and Home Medications Allergies Coded Allergies: aspirin (Verified Allergy, Unknown, 03/07/19) latex (Verified Allergy, Unknown, 09/16/19) Home Medications Acetaminophen 500 Mg Tablet, 1,000 MG PO Q4H PRN for PAIN-MILD (1-4), (Reported) Albuterol Sulfate 1 Puff Puff, 2 PUFF INH Q4H PRN for SHORTNESS OF BREATH, (Reported) Amlodipine Besylate 10 Mg Tablet, 10 MG PO HS, (Reported) LAST FILLED #90 104-19 Clonidine HCl 0.1 Mg Tablet, 0.1 MG PO BID, (Reported) LAST FILLED #180 10-4-19 Cyclobenzaprine HCl 10 Mg Tablet, 10 MG PO BID PRN for MUSCLE SPASMS, (Reported) Cyclobenzaprine HCl 10 Mg Tablet, 10 MG PO Q8H PRN for SPASMS Prescribed by: CHEVY EARLY on 07/11/20 1444 Cyclobenzaprine HCl 10 Mg Tablet, 10 MG PO Q8H PRN for SPASMS Prescribed by: CHEVY EARLY on 07/11/20 1450 Diclofenac Sodium 75 Mg Tablet., 75 MG PO BID Prescribed by: CLAUDIA DELEON on 04/27/20 184 Diclofenac Sodium 75 Mg Tablet.dr 75 MG PO BID Prescribed by: CLAUDIA DELEON on 7/13/20 1847 Diphenhydramine HCl 25 Mg Capsule, 50 MG PO HS PRN for SLEEP, (Reported) Doxycycline Hyclate 100 Mg Tablet, 100 MG PO BID Prescribed by: TERESSA LOPEZ on 09/28/20 1718 Fluoxetine HCl 20 Mg Capsule, 20 MG PO BID, (Reported) Hydrocodone/Acetaminophen 1 Each Tablet, 1 EACH PO Q4H Prescribed by: NIYAH CANADA on 05/06/20 1621 Hydrocodone/Acetaminophen 1 Each Tablet, 1 EACH PO Q8H PRN for PAIN-MODERATE (5- 7) Prescribed by: LAMIN ADLER on 10/10/20 1011 Lisinopril 20 Mg Tablet, 20 MG PO HS, (Reported) LAST FILLED #90 10- Metoprolol Succinate 50 Mg Tab.er.24h, 50 MG PO BID, (Reported) LAST FILLED #180 10-4-19 Oxycodone HCl/Acetaminophen 1 Each Tablet, 1 EACH PO Q6H PRN for PAIN-SEVERE (8- 10) Prescribed by: LAMIN ADLER on 10/01/20 2359 Pantoprazole Sodium 40 Mg Tablet.dr, 40 MG PO DAILY, (Reported) Prednisone 20 Mg Tab, 40 MG PO DAILY start on 09/29/20 Prescribed by: TERESSA LOPEZ on 09/28/20 1718 Spironolactone 25 Mg Tablet, 25 MG PO DAILY, (Reported) LAST FILLED #90 10-19 Sucralfate 1 Gm Tablet, 1 GM PO BID PRN for STOMACH UPSET, (Reported) Patient Home Medication List Home Medication List Reviewed: Yes Review of Systems Constitutional: see HPI EENTM: see HPI Cardiovascular: see HPI Gastrointestinal: see HPI Genitourinary: see HPI Musculoskeletal: see HPI Skin: see HPI Psychiatric/Neurological: See HPI All Other Systems Reviewed Negative Unless Noted: Yes Past Ikmqdts-Wmczrw-Odcrir Hx Past Med/Social Hx: Reviewed Nursing Past Med/Soc Hx Patient Social History Alcohol Use: Denies Use Smoking Status: Current Everyday Smoker Type Used: Cigarettes 2nd Hand Smoke Exposure: Yes Recent Infectious Disease Expo: No Recent Hopitalizations: No Immunizations Up To Date Tetanus Booster (TDap): Unknown Date of Pneumonia Vaccine: Aug 14, 2016 Date of Influenza Vaccine: Jul 15, 2019 Seasonal Allergies Seasonal Allergies: No Past Medical History Surgeries: Yes Defibrillator, Gallbladder, Hysterectomy, Pacemaker, 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 Respiratory: Yes (Tobaccoism) COPD Cardiac: Yes (pacemaker/defib; a-fib, hx of VT) Atrial Fibrillation, Heart Attack, High Cholesterol, Hypertension 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 0oz. 90.712196ko; 33.00 BMI Method:Stated General Appearance: moderate distress HEENT: PERRL/EOMI, normal ENT inspection, pharynx normal Neck: full range of motion, supple Cardiovascular: regular rate, rhythm Respiratory: lungs clear Gastrointestinal: non tender, soft Ankles: right ankle bone tenderness, right ankle limited range of motion, right ankle soft tissue tenderness, right ankle swelling Neurologic/Tendon: normal sensation Neurologic/Psychiatric: no motor/sensory deficits, oriented x 3 Skin: normal color Progress/Results/Core Measures Results/Orders My Orders Orders - ARISTEO COYNE DO Ankle 3 View Right (10/26/20 12:10) Hydrocodone/Apap 5/325 Tablet (Lortab 5 (10/26/20 12:30) Morphine Injection (Morphine Injection (10/26/20 12:46) Ondansetron Oral Dissolve Tab (Zofran (10/26/20 12:46) Ankle 3 View Left (10/26/20 12:46) Medications Given in ED Current Medications Medications Dose Ordered Sig/Norma Route Start Time Stop Time Status Last Admin Dose Admin Acetaminophen/ Hydrocodone Bitart 1 tab ONCE ONCE PO 10/26/20 12:30 10/26/20 12:31 DC 10/26/20 12:32 1 TAB Vital Signs/I&O 10/26/20 11:45 Temp 36.9 Pulse 137 Resp 20 B/P (MAP) 101/59 (73) Pulse Ox 96 Blood Pressure Mean: 73 Departure Communication (Admissions) Right ankle: Comminuted nondisplaced bimalleolar fracture per radiology report Is reviewed with the patient's orthopedic surgeon. Okay to allow him to weight- bear on left leg with crutches and follow-up with orthopedic clinic in 2 days. Impression Primary Impression: Ankle fracture, right Disposition: 01 HOME, SELF-CARE Condition: Stable Departure-Patient Inst. Decision time for Depature: 14:01 Referrals: RICHARD HERMAN MD (PCP/Family) Primary Care Physician Patient Instructions: Ankle Fracture Add. Discharge Instructions: Please wear splint and use crutches. Do not weight bear on left leg if you are comfortable or feel unsafe. Follow-up with your orthopedic surgeon in the office on 10/28/20 at 10:30 AM. Take hydrocodone as needed for pain All discharge instructions reviewed with patient and/or family. Voiced understanding. Scripts Hydrocodone/Acetaminophen (Hydrocodone-Acetamin 5-325 mg) 1 Each Tablet 1 EACH PO Q6H, #10 TAB Prov: ARISTEO COYNE DO 10/26/20 ARISTEO COYNE DO Oct 26, 2020 14:02
[2020-10-26] MEDS ORDERED: ACHD5005 PO (14:03)
[2020-10-26 14:14] VITALS: BP 105/62
== END 2020-10-26 14:13 | disposition home or self-care (01) ==
LOC: EDUNIT# 11:36 → ER FS 11:38
DX: S82.844A Nondisplaced bimalleolar fracture of right lower leg, initial encounter for closed fracture (principal); I10 Essential (primary) hypertension; I48.91 Unspecified atrial fibrillation; K21.9 Gastro-esophageal reflux disease without esophagitis; J44.9 Chronic obstructive pulmonary disease, unspecified; G89.29 Other chronic pain; F17.210 Nicotine dependence, cigarettes, uncomplicated; Z88.6 Allergy status to analgesic agent; Z91.040 Latex allergy status; Z95.810 Presence of automatic (implantable) cardiac defibrillator; Z79.52 Long term (current) use of systemic steroids; Z79.891 Long term (current) use of opiate analgesic; W18.39XA Other fall on same level, initial encounter; X50.1XXA Overexertion from prolonged static or awkward postures, initial encounter
CPT/HCPCS: 29505; 73610

== ENCOUNTER 2020-10-27 19:01 | Emergency (ER) | payer BC ==
[~2020-10-27] VITALS: Ht 170.1 cm; Wt 113.9 kg
[2020-10-27 19:12] VITALS: BP 187/87
[2020-10-27] MEDS ORDERED: KETOROLAC 60 MG/2 ML VIAL IM STA (19:15)
--- NOTE | 2020-10-27 19:15 | ED General ---
General Stated Complaint: RT FOOT PAIN History of Present Illness Date Seen by Provider: Oct 27, 2020 Time Seen by Provider: 19:11 Initial Comments 50-year-old female presents for recheck of her right foot. Patient was seen yesterday and was found to have a right ankle fracture. She presents today because it feels a little tingly and she is having pain. Patient has a previously healing left ankle fracture and is in a walking boot. When patient was seen yesterday x-ray of both were obtained. She has an appointment with orthopedic surgeon tomorrow at 10 or 10:30. Patient was given 10 hydrocodone's yesterday but reports that she needs more patient has one left. Patient has no new injury in just wants to have the foot reevaluated. Allergies and Home Medications Allergies Coded Allergies: aspirin (Verified Allergy, Unknown, 03/07/19) latex (Verified Allergy, Unknown, 09/16/19) Home Medications Acetaminophen 500 Mg Tablet, 1,000 MG PO Q4H PRN for PAIN-MILD (1-4), (Reported) Albuterol Sulfate 1 Puff Puff, 2 PUFF INH Q4H PRN for SHORTNESS OF BREATH, (Reported) Amlodipine Besylate 10 Mg Tablet, 10 MG PO HS, (Reported) LAST FILLED #90 10-19 Clonidine HCl 0.1 Mg Tablet, 0.1 MG PO BID, (Reported) LAST FILLED #180 10-4-19 Cyclobenzaprine HCl 10 Mg Tablet, 10 MG PO BID PRN for MUSCLE SPASMS, (Reported) Cyclobenzaprine HCl 10 Mg Tablet, 10 MG PO Q8H PRN for SPASMS Prescribed by: CHEVY EARLY on 07/11/20 1444 Cyclobenzaprine HCl 10 Mg Tablet, 10 MG PO Q8H PRN for SPASMS Prescribed by: CHEVY ZEESTMICA on 07/11/20 1450 Diclofenac Sodium 75 Mg Tablet., 75 MG PO BID Prescribed by: CLAUDIA DELEON on 04/27/201845 Diclofenac Sodium 75 Mg Tablet., 75 MG PO BID Prescribed by: CLAUDIA DELEON on 04/27/201846 Diphenhydramine HCl 25 Mg Capsule, 50 MG PO HS PRN for SLEEP, (Reported) Doxycycline Hyclate 100 Mg Tablet, 100 MG PO BID Prescribed by: TERESSA LOPEZ on 09/28/20 1718 Fluoxetine HCl 20 Mg Capsule, 20 MG PO BID, (Reported) Hydrocodone/Acetaminophen 1 Each Tablet, 1 EACH PO Q4H Prescribed by: NIYAH CANADA on 05/06/20 1621 Hydrocodone/Acetaminophen 1 Each Tablet, 1 EACH PO Q8H PRN for PAIN-MODERATE (5- 7) Prescribed by: LAMIN ADLER on 10/10/20 1011 Hydrocodone/Acetaminophen 1 Each Tablet, 1 EACH PO Q6H Prescribed by: ARISTEO COYNE on 10/26/20 1403 Lisinopril 20 Mg Tablet, 20 MG PO HS, (Reported) LAST FILLED #90 10- Metoprolol Succinate 50 Mg Tab.er.24h, 50 MG PO BID, (Reported) LAST FILLED #180 10-4-19 Oxycodone HCl/Acetaminophen 1 Each Tablet, 1 EACH PO Q6H PRN for PAIN-SEVERE (8- 10) Prescribed by: LAMIN ADLER on 10/01/20 2359 Pantoprazole Sodium 40 Mg Tablet.dr, 40 MG PO DAILY, (Reported) Prednisone 20 Mg Tab, 40 MG PO DAILY start on 09/29/20 Prescribed by: TERESSA LOPEZ on 09/28/20 1718 Spironolactone 25 Mg Tablet, 25 MG PO DAILY, (Reported) LAST FILLED #90 10- Sucralfate 1 Gm Tablet, 1 GM PO BID PRN for STOMACH UPSET, (Reported) Patient Home Medication List Home Medication List Reviewed: Yes Review of Systems Review of Systems Constitutional: see HPI EENTM: no symptoms reported Respiratory: no symptoms reported Cardiovascular: no symptoms reported Gastrointestinal: no symptoms reported Genitourinary: no symptoms reported Musculoskeletal: see HPI Psychiatric/Neurological: No Symptoms Reported Hematologic/Lymphatic: No Symptoms Reported Past Cpaqeqp-Sqpxzy-Rkdhfh Hx Past Med/Social Hx: Reviewed Nursing Past Med/Soc Hx Patient Social History Type Used: Cigarettes 2nd Hand Smoke Exposure: Yes Recent Hopitalizations: No Immunizations Up To Date Tetanus Booster (TDap): Unknown Date of Pneumonia Vaccine: Aug 14, 2016 Date of Influenza Vaccine: Jul 15, 2019 Seasonal Allergies Seasonal Allergies: No Past Medical History Surgeries: Yes Defibrillator, Gallbladder, Hysterectomy, Pacemaker, 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 Respiratory: Yes (Tobaccoism) COPD Cardiac: Yes (pacemaker/defib; a-fib, hx of VT) Atrial Fibrillation, Heart Attack, High Cholesterol, Hypertension 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 0oz. 90.460654te; 33.00 BMI Method:Stated General Appearance: No Apparent Distress HEENT: PERRL/EOMI Neck: Full Range of Motion Respiratory: No Accessory Muscle Use, No Respiratory Distress Cardiovascular: Regular Rate, Rhythm, Normal Peripheral Pulses Extremity: Normal Capillary Refill, Other (left foot in a walking boot, right foot and splint. 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 No signs of compartment syndrome. We did rewrap the splint for calm for. Patient requested more pain medication, however I instructed her that she was given 10 pills at noon yesterday and has used all but one unless and 36 hours. At this time I will not provide her any further narcotic pain medication. I will give her shot of Toradol to help with pain and inflammation and night. She needs to keep her appointment with orthopedic surgery in his [place] scheduled for tomorrow morning Departure Impression Primary Impression: Ankle fracture, right Qualified Codes: S82.891A - Other fracture of right lower leg, initial encounter for closed fracture Disposition: 01 HOME, SELF-CARE Condition: Stable Departure-Patient Inst. Referrals: RICHARD HERMAN MD (PCP/Family) Primary Care Physician Add. Discharge Instructions: Keep right leg elevated when at home, continue weightbearing on left leg and use the crutches You may add some ibuprofen as needed for pain, ice to the right leg/ankle Keep your already scheduled appointment with orthopedic surgeon in the morning TERESSA LOPEZ DO Oct 27, 2020 19:15
== END 2020-10-27 19:29 | disposition home or self-care (01) ==
LOC: EDUNIT# 19:01 → ER FS 19:02
DX: S82.52XD Displaced fracture of medial malleolus of left tibia, subsequent encounter for closed fracture with routine healing (principal); I10 Essential (primary) hypertension; J44.9 Chronic obstructive pulmonary disease, unspecified; I48.91 Unspecified atrial fibrillation; K21.9 Gastro-esophageal reflux disease without esophagitis; G89.29 Other chronic pain; Z88.6 Allergy status to analgesic agent; Z91.040 Latex allergy status; Z95.0 Presence of cardiac pacemaker; Z77.22 Contact with and (suspected) exposure to environmental tobacco smoke (acute) (chronic); Z79.891 Long term (current) use of opiate analgesic; Z79.52 Long term (current) use of systemic steroids; X58.XXXD Exposure to other specified factors, subsequent encounter
CPT/HCPCS: 99284

== ENCOUNTER 2021-02-03 14:44 | Emergency (ER) | payer BC ==
[~2021-02-03] VITALS: Ht 170.2 cm; Wt 104.3 kg
[~2021-02-03 14:44] MED LIST changes: -LISI-552 PO; +LISI20TA26 PO; -OXYC-471 PO; +OXYC1TAB11 PO
[2021-02-03] MEDS ORDERED: fentaNYL INJ 100 MCG/2 ML AMP IVP STA (15:12)
[2021-02-03] MEDS ORDERED: NS IV 1000 ML 1,000 ML IV STA (15:12)
[2021-02-03] MEDS ORDERED: PANTOPRAZOLE 40 MG (PROTONIX) VIAL IV STA (15:12)
[2021-02-03] MEDS ORDERED: ONDANSETRON 4 MG/2 ML (SDV) Z0FRAN IVP STA (15:12)
[2021-02-03] MEDS ORDERED: LABETALOL HCL 20 MG/4 ML VIAL IV STA (15:13)
--- NOTE | 2021-02-03 15:20 | ED General ---
General Chief Complaint: Respiratory Problems Stated Complaint: SOB; RESP CONGESTION; DIZZY; VOMITING Nursing Triage Note: Patient reports she has had a cough "for a while" and began sweating and vomiting during the night last night. She reports some diarrhea two days ago, states she having some trouble breathing and dizziness. Nursing Sepsis Screen: No Definite Risk Source of Information: Patient History of Present Illness Date Seen by Provider: Feb 03, 2021 Time Seen by Provider: 14:47 Initial Comments 50 yo female presenting with complaints of increased cough, nausea, vomiting and diarrhea. She states that nausea and vomiting started last night and the diarrhea was 2 days ago. Over the weekend her was sick with vomiting and diarrhea but they thought it was due to eating something at [employer]. He was f eeling better within 24 hours. She has a history of COPD and thought that the cough and shortness of breath was due to her COPD since she has had a recent cold. She has had subjective fever and chills. She is not coughing up any sputum. She has been taking some [id number] ZzzQuil to help with her symptoms. She states she saw her primary doctor last week but they did not prescribe any medication and told her it was a cold. She denies any burning with urination. She does have abdominal cramping and pain with movement as well as feels dizzy and lightheaded especially with sitting standing. She reports being able to keep down her regular medicines today. Other than this weekend with her being sick with nausea vomiting diarrhea she denies any known ill contact exposures. Timing/Duration: 1-2 Days Severity: Moderate Modifying Factors: worse with Eating, worse with Movement Associated Systoms: Chest Pain, Cough, Diaphoresis, Fever/Chills (subjective); No Headaches; Malaise, Nausea/Vomiting; No Rash, No Seizure; Shortness of Air (chronic but feels worse in last day or two); No Syncope Allergies and Home Medications Allergies Coded Allergies: aspirin (Verified Allergy, Unknown, 03/07/19) latex (Verified Allergy, Unknown, 09/16/19) Home Medications Acetaminophen 500 Mg Tablet, 1,000 MG PO Q4H PRN for PAIN-MILD (1-4), (Reported) Albuterol Sulfate 1 Puff Puff, 2 PUFF INH Q4H PRN for SHORTNESS OF BREATH, (Repo rted) Amlodipine Besylate 10 Mg Tablet, 10 MG PO HS, (Reported) LAST FILLED #90 07-19-19 Clonidine HCl 0.1 Mg Tablet, 0.1 MG PO BID, (Reported) LAST FILLED #180 07-19-19 Codeine Phosphate/Guaifenesin 473 Ml Liquid, 10 ML PO Q8H PRN for COUGH Prescribed by: LAMIN ADLER on 02/03/21 1629 Cyclobenzaprine HCl 10 Mg Tablet, 10 MG PO BID PRN for MUSCLE SPASMS, (Reported) Cyclobenzaprine HCl 10 Mg Tablet, 10 MG PO Q8H PRN for SPASMS Prescribed by: CHEVY EARLY on 07/11/20 1444 Cyclobenzaprine HCl 10 Mg Tablet, 10 MG PO Q8H PRN for SPASMS Prescribed by: CHEVY ZEESTMICA on 07/11/20 1450 Diclofenac Sodium 75 Mg Tablet.dr, 75 MG PO BID Prescribed by: CLAUDIA DELEON on 04/27/20 184 Diclofenac Sodium 75 Mg Tablet.dr, 75 MG PO BID Prescribed by: CLAUDIA DELEON on 04/27/20 1847 Diphenhydramine HCl 25 Mg Capsule, 50 MG PO HS PRN for SLEEP, (Reported) Doxycycline Hyclate 100 Mg Tablet, 100 MG PO BID Prescribed by: TERESSA LOPEZ on 09/28/20 1718 Fluoxetine HCl 20 Mg Capsule, 20 MG PO BID, (Reported) Hydrocodone/Acetaminophen 1 Each Tablet, 1 EACH PO Q4H Prescribed by: NIYAH CANADA on 05/06/20 1621 Hydrocodone/Acetaminophen 1 Each Tablet, 1 EACH PO Q8H PRN for PAIN-MODERATE (5- 7) Prescribed by: LAMIN ALDER on 10/10/20 1011 Hydrocodone/Acetaminophen 1 Each Tablet, 1 EACH PO Q6H Prescribed by: ARISTEO COYNE on 10/26/20 1403 Lisinopril 20 Mg Tablet, 20 MG PO HS, (Reported) LAST FILLED #90 07-19-19 Metoprolol Succinate 50 Mg Tab.er.24h, 50 MG PO BID, (Reported) LAST FILLED #180 10- Ondansetron 4 Mg Tab.rapdis, 4 MG PO Q6H PRN for NAUSEA/VOMITING Prescribed by: LAMIN ADLER on 02/03/21 1628 Oxycodone HCl/Acetaminophen 1 Each Tablet, 1 EACH PO Q6H PRN for PAIN-SEVERE (8- 10) Prescribed by: LAMIN ADLER on 10/01/20 1813 Pantoprazole Sodium 40 Mg Tablet.dr, 40 MG PO DAILY, (Reported) Prednisone 20 Mg Tab, 40 MG PO DAILY start on 09/29/20 Prescribed by: TERESSA LOPEZ on 09/28/20 1718 Spironolactone 25 Mg Tablet, 25 MG PO DAILY, (Reported) LAST FILLED #90 07-19-19 Sucralfate 1 Gm Tablet, 1 GM PO BID PRN for STOMACH UPSET, (Reported) Patient Home Medication List Home Medication List Reviewed: Yes Review of Systems Review of Systems Constitutional: see HPI, chills, diaphoresis, dizziness, fever, malaise EENTM: nose congestion; No blurred vision, No epistaxis Respiratory: see HPI, cough, dyspnea on exertion; No hemoptysis, No orthopnea, No phlegm; short of breath; No stridor; wheezing Cardiovascular: chest pain (9 out of 10 throughout her chest bilaterally); No edema, No palpitations, No syncope Gastrointestinal: see HPI Genitourinary: no symptoms reported Musculoskeletal: no symptoms reported Skin: No rash Psychiatric/Neurological: Anxiety, Paresthesia (bilateral hands and is scheduled to get an EMG to check for carpal tunnel) Past Kqxphha-Mfwyfo-Rukqjx Hx Past Med/Social Hx: Reviewed Nursing Past Med/Soc Hx Patient Social History Type Used: Cigarettes 2nd Hand Smoke Exposure: Yes Recent Infectious Disease Expo: No Recent Hopitalizations: No Immunizations Up To Date Tetanus Booster (TDap): Unknown Date of Pneumonia Vaccine: Aug 14, 2016 Date of Influenza Vaccine: Jul 15, 2019 Seasonal Allergies Seasonal Allergies: No Past Medical History Surgeries: Yes Defibrillator, Gallbladder, Hysterectomy, Pacemaker, 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 Respiratory: Yes (Tobaccoism) COPD Cardiac: Yes (pacemaker/defib; a-fib, hx of VT) Atrial Fibrillation, Heart Attack, High Cholesterol, Hypertension 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 0oz. [id number]; 36.00 BMI Method:Stated General Appearance: No Apparent Distress (appears to not feel well but no acute distress), Obese HEENT: PERRL/EOMI, Pharynx Normal Neck: Full Range of Motion, Normal Inspection, Non Tender, Supple Respiratory: No Accessory Muscle Use, No Respiratory Distress, Decreased Breath Sounds, Other (chest tender to palpation) Cardiovascular: Regular Rate, Rhythm, Normal Peripheral Pulses Gastrointestinal: Normal Bowel Sounds, No Pulsatile Mass, Soft; No Distended, No Guarding, No Rebound; Tenderness (mild diffuse) Rectal: Deferred Extremity: Normal Capillary Refill, No Pedal Edema Neurologic/Psychiatric: Alert, Oriented x3, No Motor/Sensory Deficits, die cutter diamond II- XII Norm as Tested Skin: Normal Color, Warm/Dry Focused Exam Lactate Level 02/03/21 15:15: Lactic Acid Level 1.00 Lactic Acid Level Laboratory Tests Test 02/03/21 15:15 Lactic Acid Level 1.00 MMOL/L (0.50-2.00) Progress/Results/Core Measures Suspected Sepsis Recent Fever Within 48 Hours: No Infection Criteria Present: Suspected New Infection New/Unexplained Altered Menta: No Sepsis Screen: No Definite Risk SIRS Temperature: Pulse: 90 Respiratory Rate: 20 Laboratory Tests 02/03/21 15:15: White Blood Count 5.3 Blood Pressure 193 /101 Mean: 131 02/03/21 15:15: Lactic Acid Level 1.00 Laboratory Tests 02/03/21 15:15: Creatinine 0.59L, INR Comment 0.9, Platelet Count 256, Total Bilirubin 0.3 Results/Orders Lab Results Laboratory Tests Test 02/03/21 15:15 Range/Units White Blood Count 5.3 4.3-11.0 10^3/uL Red Blood Count 5.19 4.35-5.85 10^6/uL Hemoglobin 15.5 11.5-16.0 G/DL Hematocrit 47 35-52 % Mean Corpuscular Volume 91 80-99 FL Mean Corpuscular Hemoglobin 30 25-34 PG Mean Corpuscular Hemoglobin Concent 33 32-36 G/DL Red Cell Distribution Width 14.7 H 10.0-14.5 % Platelet Count 256 130-400 10^3/uL Mean Platelet Volume 10.2 7.4-10.4 FL Neutrophils (%) (Auto) 62 42-75 % Lymphocytes (%) (Auto) 32 12-44 % Monocytes (%) (Auto) 5 0-12 % Eosinophils (%) (Auto) 1 0-10 % Basophils (%) (Auto) 0 0-10 % Neutrophils # (Auto) 3.2 1.8-7.8 X 10^3 Lymphocytes # (Auto) 1.7 1.0-4.0 X 10^3 Monocytes # (Auto) 0.3 0.0-1.0 X 10^3 Eosinophils # (Auto) 0.0 0.0-0.3 10^3/uL Basophils # (Auto) 0.0 0.0-0.1 10^3/uL Prothrombin Time 12.6 12.2-14.7 SEC INR Comment 0.9 0.8-1.4 Activated Partial Thromboplast Time 26 24-35 SEC Sodium Level 139 135-145 MMOL/L Potassium Level 3.4 L 3.6-5.0 MMOL/L Chloride Level 102 98-107 MMOL/L Carbon Dioxide Level 24 21-32 MMOL/L Anion Gap 13 5-14 MMOL/L Blood Urea Nitrogen 12 7-18 MG/DL Creatinine 0.59 L 0.60-1.30 MG/DL Estimat Glomerular Filtration Rate > 60 BUN/Creatinine Ratio 20 Glucose Level 114 H 70-105 MG/DL Lactic Acid Level 1.00 0.50-2.00 MMOL/L Calcium Level 9.1 8.5-10.1 MG/DL Corrected Calcium 8.5-10.1 MG/DL Magnesium Level 1.9 1.6-2.4 MG/DL Total Bilirubin 0.3 0.1-1.0 MG/DL Aspartate Amino Transf (AST/SGOT) 16 5-34 U/L Alanine Aminotransferase (ALT/SGPT) 19 0-55 U/L Alkaline Phosphatase 193 H 40-136 U/L Troponin I < 0.30 <0.30 NG/ML Pro-B-Type Natriuretic Peptide 526.5 H <75.0 PG/ML Total Protein 7.5 6.4-8.2 GM/DL Albumin 4.7 H 3.2-4.5 GM/DL Lipase 12 8-78 U/L My Orders Orders - LAMIN ADLER MD Cbc With Automated Diff (02/03/21 15:10) Magnesium (02/03/21 15:10) Chest 1 View Ap/Pa Only (02/03/21 15:10) Ekg Tracing (02/03/21 15:10) Comprehensive Metabolic Panel (02/03/21 15:10) Protime With Inr (02/03/21 15:10) Partial Thromboplastin Time (02/03/21 15:10) O2 (02/03/21 15:10) Monitor-Rhythm Ecg Trace Only (02/03/21 15:10) Ed Iv/Invasive Line Start (02/03/21 15:10) Lipase (02/03/21 15:10) Troponin I Fs (02/03/21 15:10) Probnp Fs (02/03/21 15:10) Blood Culture (02/03/21 15:10) Lactic Acid Analyzer (02/03/21 15:10) Ua Culture If Indicated (02/03/21 15:10) Ns Iv 1000 Ml (Sodium Chloride 0.9%) (02/03/21 15:12) Ondansetron Injection (Zofran Injectio (02/03/21 15:12) Pantoprazole Injection (Protonix Injecti (02/03/21 15:12) Fentanyl Inj (Sublimaze Injection) (02/03/21 15:12) Labetalol Injection (Normodyne Injection (02/03/21 15:13) Vital Signs/I&O 02/03/21 02/03/21 14:51 16:30 Temp 36.0 Pulse 90 74 Resp 20 18 B/P (MAP) 193/101 (131) 104/75 Pulse Ox 95 96 O2 Delivery Room Air Room Air Capillary Refill : Less Than 3 Seconds Blood Pressure Mean: 131 Progress Note #1: Progress Note obtain basic labs, ECG and CXR. With her elevated blood pressure we will try a dose of labetalol. Also for her blood pressure and complaint of chest pain will place on cardiac monitoring and evaluation advisor and watch her heart rate and rhythm. Initially she is in a sinus rhythm without ectopy. Ordered Zofran for nausea, IV fluids for hydration, fentanyl for complaint of chest pain. Protonix for abdominal pain and n/v. Differential diagnosis would include COPD exacerbation, pneumonia, CHF, coronary artery disease with acute coronary syndrome, myocardial infarction, gastroenteritis, COVID-19, colitis, diverticulitis, bronchitis Progress Note #2: Time: 15:31 Progress Note CBC without acute significant abnormality. WBC count 5.3 without left shift. ECG appears stable from prior tracings with sinus rhythm and borderline QT prolongation. Cardiac monitoring and evaluation advisor sinus rhythm without ectopy. Progress Note #3: Time: 15:50 Progress Note Chest x-ray read out as no acute process by radiology. The chemistry panel does not show any acute significant abnormality to account for her symptoms. Her lactic acid is 1. Her heart rate is in the 70s and sinus rhythm on the telemetry monitoring after labetalol and other medications. Her blood pressure has improved after treatment as well. After getting the fentanyl for pain her oxygen saturation did decrease to around 89-90% due to some somnolence from the narcotic. Progress Note #4: Time: 16:18 Progress Note On recheck with the patient she reports feeling better. She is tolerating oral intake here in the ED. Her blood pressure and vitals look improved. She continues to be in a sinus rhythm on telemetry monitoring. She reports that in the past she has gotten a cough syrup which helped her rest because part of her issue is when she tries to lay down to sleep she starts coughing. Will refill this and send a prescription for Zofran ODT tablets to [facility]. Counseled on follow-up and return precautions. Discussed option of testing for COVID-19 and patient deferred since she was not going to be admitted. She also felt that she had not had any close exposures and would not affect her current treatment so she will hold off on having that test done. ECG Initial ECG Impression Date: Feb 03, 2021 Initial ECG Impression Time: 15:03 Initial ECG Rate: 90 Initial ECG Rhythm: Normal Sinus Initial ECG Comparisson: Unchanged Comment Normal sinus rhythm with a heart rate of 90 bpm. HI interval [address] elevation. Borderline prolonged QT interval at 415 ms with a QTc interval of 508 ms. Appears similar to prior tracings in the system. Diagnostic Imaging Diagonstic Imaging: Xray Plain Films/CT/US/NM/MRI: chest Comments NAME: JENNIFER DICKERSON [facility] REC#: [id number] PT STATUS: REG ER : 1970 PHYSICIAN: LAMIN ADLER MD ADMIT DATE: 02/03/21/ER FS Draft Date of Exam:02/03/21 CHEST 1 VIEW AP/PA ONLY INDICATION: Shortness of breath with chest pain. FINDINGS: The lungs are clear. The pacemaker device is unremarkable. No failure, effusion, or pneumothorax. IMPRESSION: No acute appearing abnormality. Dictated on workstation # [id number] Dict: 02/03/21 1544 Trans: 02/03/21 1547 [id number] Interpreted by: RAMONA MANRIQUE Electronically signed by: Reviewed: Reviewed by Me (and radiologist report) Departure Impression Primary Impression: Nausea vomiting and diarrhea Additional Impressions: Cough in adult patient Shortness of breath Acute viral syndrome Elevated blood pressure reading Disposition: 01 HOME, SELF-CARE Condition: Improved Departure-Patient Inst. Decision time for Depature: 16:31 Referrals: RICHARD HERMAN MD (PCP/Family) Primary Care Physician Patient Instructions: Cough, Adult ED, Diarrhea, Adult ED, Nausea and Vomiting, Adult ED, Upper Respiratory Infection ED, VIRAL SYNDROME Add. Discharge Instructions: Use the nausea medicine to help keep your stomach settled and stay hydrated. make sure to continue taking your regular medicines. Take the cough syrup to help you rest. Continue with your breathing treatments and regular medicines. Check with clinic if not improving or having more problems. All discharge instructions reviewed with patient and/or family. Voiced understanding. Scripts Ondansetron (Ondansetron Odt) 4 Mg Tab.rapdis 4 MG PO Q6H PRN for NAUSEA/VOMITING for 3 Days, #12 TAB 0 Refills Prov: LAMIN ADLER MD 02/03/21 Codeine Phosphate/Guaifenesin (Maxi-Tuss AC Liquid) 473 Ml Liquid 10 ML PO Q8H PRN for COUGH for 5 Days, #150 ML 0 Refills Prov: LAMIN ADLER MD 02/03/21 LAMIN ADLER MD Feb 03, 2021 15:20
[2021-02-03 15:27] LABS: EOSINOPHILS % (AUTO) 1 % (0-10); HEMATOCRIT 47 % (35-52); HEMOGLOBIN 15.5 G/DL (11.5-16.0); LYMPHOCYTES % (AUTO) 32 % (12-44); MEAN CORPUSCULAR HEMOGLOBIN 30 PG (25-34); MEAN CORPUSCULAR HGB CONC 33 G/DL (32-36); MEAN CORPUSCULAR VOLUME 91 FL (80-99); MEAN PLATELET VOLUME 10.2 FL (7.4-10.4); MONOCYTES % (AUTO) 5 % (0-12); NEUTROPHILS % (AUTO) 62 % (42-75); PLATELET COUNT 256 10^3/uL (130-400); WHITE BLOOD COUNT 5.3 10^3/uL (4.3-11.0)
[2021-02-03 15:28] LABS: BASOPHILS % (AUTO) 0 % (0-10); LYMPHOCYTES # (AUTO) 1.7 X 10^3 (1.0-4.0); MONOCYTES # (AUTO) 0.3 X 10^3 (0.0-1.0); NEUTROPHILS # (AUTO) 3.2 X 10^3 (1.8-7.8)
--- NOTE | 2021-02-03 15:47 | Diagnostic Imaging Report ---
INDICATION: Shortness of breath with chest pain. FINDINGS: The lungs are clear. The pacemaker device is unremarkable. No failure, effusion, or pneumothorax. IMPRESSION: No acute appearing abnormality. Dictated by: Dictated on workstation # [id number]
[2021-02-03 15:48] LABS: BUN/CREATININE RATIO 20; CALCIUM 9.1 MG/DL (8.5-10.1); CARBON DIOXIDE 24 MMOL/L (21-32); CHLORIDE 102 MMOL/L (98-107); CREATININE SERUM 0.59 MG/DL (0.60-1.30); GFR ESTIMATED > 60; GLUCOSE 114 MG/DL (70-105); MAGNESIUM 1.9 MG/DL (1.6-2.4); POTASSIUM 3.4 MMOL/L (3.6-5.0); SODIUM 139 MMOL/L (135-145)
[2021-02-03 15:49] LABS: ALANINE AMINOTRANSFERASE 19 U/L (0-55); ALBUMIN 4.7 GM/DL (3.2-4.5); ALKALINE PHOSPHATASE 193 U/L (40-136); BILIRUBIN,TOTAL 0.3 MG/DL (0.1-1.0); LIPASE 12 U/L (8-78); TOTAL PROTEIN 7.5 GM/DL (6.4-8.2)
[2021-02-03 15:53] LABS: INR 0.9 (0.8-1.4); PROTHROMBIN TIME PATIENT 12.6 SEC (12.2-14.7)
[2021-02-03] MEDS ORDERED: ONDA4TAB11 PO (16:28)
[2021-02-03] MEDS ORDERED: [UNRECOGNIZED DRUG - CODE] PO (16:28)
[2021-02-03 16:30] VITALS: BP 104/75
== END 2021-02-03 16:00 | disposition home or self-care (01) ==
LOC: EDUNIT# 14:44 → ER FS 14:48
DX: R11.2 Nausea with vomiting, unspecified (principal); R19.7 Diarrhea, unspecified; R06.02 Shortness of breath; B34.9 Viral infection, unspecified; I10 Essential (primary) hypertension; I25.2 Old myocardial infarction; J44.9 Chronic obstructive pulmonary disease, unspecified; E66.9 Obesity, unspecified; G89.29 Other chronic pain; M54.9 Dorsalgia, unspecified; K21.9 Gastro-esophageal reflux disease without esophagitis; Z68.36 Body mass index [BMI] 36.0-36.9, adult; Z91.040 Latex allergy status; Z88.8 Allergy status to other drugs, medicaments and biological substances; Z77.22 Contact with and (suspected) exposure to environmental tobacco smoke (acute) (chronic); Z79.52 Long term (current) use of systemic steroids; Z79.891 Long term (current) use of opiate analgesic
CPT/HCPCS: 36415; 71045; 80053; 83605; 83690; 83735; 83880; 84484; 85025; 85610; 85730; 87040; 93005; 93041

== ENCOUNTER 2021-03-04 17:15 | Emergency (ER) | payer BC ==
[~2021-03-04] VITALS: Ht 170.2 cm; Wt 108.9 kg
[~2021-03-04 17:15] MED LIST changes: +ONDA4TAB11 PO; +[UNRECOGNIZED DRUG - CODE] PO
[2021-03-04 17:20] VITALS: BP 102/88
[2021-03-04] MEDS ORDERED: IBUP-1780 PO (17:42)
--- NOTE | 2021-03-04 17:43 | ED Lower Extremity ---
General Chief Complaint: Lower Extremity Stated Complaint: LEFT LEG PAIN Nursing Triage Note: PT ARRIVED BY PRIVATE VEHICLE WITH CHIEF COMPLAINT OF LEG PAIN (LEFT). PT WAS ALERT, ORIENTED X 4 AND WHEELED TO OVERFLOW ROOM WHERE HER VITAL SIGNS WERE DONE. PT STATED ABOUT AN HOUR AGO AT HER SON'S HOUSE SHE WAS WALKING AND HEARD A POP AND STATED HER LEG IS STICKING OUT. THERE IS VERY MILD SWELLING IN LEFT KNEE AND NOT MUCH DIFFERENCE COMPARED TO HER RIGHT KNEE. NO OBVIOUS DEFORMITIES. ICE WAS APPLIED AND REPORT WAS GIVEN TO PROVIDER. Nursing Sepsis Screen: No Definite Risk Source: patient History of Present Illness Date Seen by Provider: March 04, 2021 Time Seen by Provider: 17:21 Initial Comments 50-year-old female presents with left knee pain, onset today. Stage she was standing up and felt a pop in her knee, now having some swelling and pain and worse with movement. Denies history of left knee problems. Currently seeing orthopedic surgeon in [facility] for right foot pain. Has taken nothing for pain Allergies and Home Medications Allergies Coded Allergies: aspirin (Verified Allergy, Unknown, 03/07/19) latex (Verified Allergy, Unknown, 09/16/19) Home Medications Acetaminophen 500 Mg Tablet, 1,000 MG PO Q4H PRN for PAIN-MILD (1-4), (Reported) Albuterol Sulfate 1 Puff Puff, 2 PUFF INH Q4H PRN for SHORTNESS OF BREATH, (Reported) Amlodipine Besylate 10 Mg Tablet, 10 MG PO HS, (Reported) LAST FILLED #90 10- Clonidine HCl 0.1 Mg Tablet, 0.1 MG PO BID, (Reported) LAST FILLED #180 104-19 Codeine Phosphate/Guaifenesin 473 Ml Liquid, 10 ML PO Q8H PRN for COUGH Prescribed by: LAIMN ADLER on 02/03/21 1629 Cyclobenzaprine HCl 10 Mg Tablet, 10 MG PO BID PRN for MUSCLE SPASMS, (Reported) Cyclobenzaprine HCl 10 Mg Tablet, 10 MG PO Q8H PRN for SPASMS Prescribed by: CHEVY EARLY on 07/11/20 1444 Cyclobenzaprine HCl 10 Mg Tablet, 10 MG PO Q8H PRN for SPASMS Prescribed by: CHEVY EARLY on 07/11/20 1450 Diclofenac Sodium 75 Mg Tablet.dr, 75 MG PO BID Prescribed by: CLAUDIA DELEON on 04/27/20 1846 Diclofenac Sodium 75 Mg Tablet.dr, 75 MG PO BID Prescribed by: CLAUDIA DELEON on 04/27/20 1847 Diphenhydramine HCl 25 Mg Capsule, 50 MG PO HS PRN for SLEEP, (Reported) Doxycycline Hyclate 100 Mg Tablet, 100 MG PO BID Prescribed by: TERESSA LOPEZ on 09/28/20 1718 Fluoxetine HCl 20 Mg Capsule, 20 MG PO BID, (Reported) Hydrocodone/Acetaminophen 1 Each Tablet, 1 EACH PO Q4H Prescribed by: NIYAH CANADA on 05/06/20 1621 Hydrocodone/Acetaminophen 1 Each Tablet, 1 EACH PO Q8H PRN for PAIN-MODERATE (5- 7) Prescribed by: LAMIN ADLER on 10/10/20 1011 Hydrocodone/Acetaminophen 1 Each Tablet, 1 EACH PO Q6H Prescribed by: ARISTEO COYNE on 10/26/20 1403 Ibuprofen 800 Mg Tablet, 800 MG PO Q8H PRN for PAIN Prescribed by: CHEVY EARLY on 03/04/21 1742 Lisinopril 20 Mg Tablet, 20 MG PO HS, (Reported) LAST FILLED #90 10-4-19 Metoprolol Succinate 50 Mg Tab.er.24h, 50 MG PO BID, (Reported) LAST FILLED #180 10-4-19 Ondansetron 4 Mg Tab.rapdis, 4 MG PO Q6H PRN for NAUSEA/VOMITING Prescribed by: LAMIN ADLER on 02/03/21 1628 Oxycodone HCl/Acetaminophen 1 Each Tablet, 1 EACH PO Q6H PRN for PAIN-SEVERE (8- 10) Prescribed by: LAMIN ADLER on 10/01/20 2359 Pantoprazole Sodium 40 Mg Tablet.dr, 40 MG PO DAILY, (Reported) Prednisone 20 Mg Tab, 40 MG PO DAILY start on 09/29/20 Prescribed by: TERESSA LOPEZ on 09/28/20 1718 Spironolactone 25 Mg Tablet, 25 MG PO DAILY, (Reported) LAST FILLED #90 10-4-19 Sucralfate 1 Gm Tablet, 1 GM PO BID PRN for STOMACH UPSET, (Reported) Patient Home Medication List Home Medication List Reviewed: Yes Review of Systems Constitutional: no symptoms reported; No fever, No malaise, No weakness Respiratory: no symptoms reported; No cough, No short of breath Cardiovascular: No chest pain, No palpitations Gastrointestinal: no symptoms reported Musculoskeletal: see HPI; No back pain; joint pain Past Tayjrge-Kihndr-Agwnlc Hx Past Med/Social Hx: Reviewed Nursing Past Med/Soc Hx Patient Social History Alcohol Use: Denies Use Type Used: Cigarettes 2nd Hand Smoke Exposure: Yes Recent Infectious Disease Expo: No Recent Hopitalizations: No Immunizations Up To Date Tetanus Booster (TDap): Unknown Date of Pneumonia Vaccine: Aug 14, 2016 Date of Influenza Vaccine: Jul 15, 2019 Seasonal Allergies Seasonal Allergies: No Past Medical History Surgeries: Yes (Cardiac defibrillator/pacemaker) Defibrillator, Gallbladder, Hysterectomy, Pacemaker, 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 Respiratory: Yes (Tobaccoism) COPD Cardiac: Yes (pacemaker/defib; a-fib, hx of VT, heart failure) Atrial Fibrillation, Heart Attack, High Cholesterol, Hypertension 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 0oz. 90.961727pv; 37.00 BMI Method:Stated General Appearance: WD/WN, no apparent distress Legs: bilateral leg non-tender, bilateral leg normal inspection, bilateral leg normal range of motion Knees: left knee joint effusion (small medical joint line), left knee pain, left knee swelling Neurologic/Tendon: normal sensation, normal motor functions, normal tendon functions, responds to pain Neurologic/Psychiatric: no motor/sensory deficits, alert, normal mood/affect Skin: normal color, warm/dry left knee- medial joint line tenderness w small effusion ...suspicious for Med. meniscal tear Progress/Results/Core Measures Results/Orders Vital Signs/I&O 03/04/21 17:20 Temp 36.2 Pulse 128 Resp 18 B/P (MAP) 102/88 (93) Pulse Ox 99 O2 Delivery Room Air Blood Pressure Mean: 93 Departure Impression Primary Impression: Internal derangement of left knee Disposition: HOME, SELF-CARE Condition: Stable Departure-Patient Inst. Decision time for Depature: 17:42 Referrals: RICHARD HERMAN MD (PCP/Family) Primary Care Physician Patient Instructions: Internal Derangement of the Knee (DC) Add. Discharge Instructions: Follow-up with your orthopedic surgeon in [facility] in 1 week. All discharge instructions reviewed with patient and/or family. Voiced understanding. Scripts Ibuprofen (Ibuprofen) 800 Mg Tablet 800 MG PO Q8H PRN for PAIN, #30 TAB 0 Refills Prov: CHEVY EARLY DO 03/04/21 CHEVY EARLY DO March 04, 2021 17:43
== END 2021-03-04 17:45 | disposition home or self-care (01) ==
LOC: EDUNIT# 17:15 → ER FS 17:16
DX: M23.92 Unspecified internal derangement of left knee (principal); I11.0 Hypertensive heart disease with heart failure; I50.9 Heart failure, unspecified; J44.9 Chronic obstructive pulmonary disease, unspecified; I48.91 Unspecified atrial fibrillation; K21.9 Gastro-esophageal reflux disease without esophagitis; G89.29 Other chronic pain; M54.9 Dorsalgia, unspecified; F17.210 Nicotine dependence, cigarettes, uncomplicated; Z95.810 Presence of automatic (implantable) cardiac defibrillator; Z79.52 Long term (current) use of systemic steroids; Z79.891 Long term (current) use of opiate analgesic; Z79.899 Other long term (current) drug therapy
CPT/HCPCS: 99283

== ENCOUNTER 2021-04-15 21:18 | Emergency (ER) | payer BC ==
[~2021-04-15] VITALS: Ht 167.7 cm; Wt 108.9 kg
[~2021-04-15 21:18] MED LIST changes: +DICL100G13 TOP; -DICL100G31 TOP; +IBUP-1780 PO
--- NOTE | 2021-04-15 21:22 | ED General ---
General Stated Complaint: CHEST PAIN,SOB History of Present Illness Date Seen by Provider: Apr 15, 2021 Time Seen by Provider: 21:21 Initial Comments Patient presenting to the emergency department for evaluation of shortness of breath and chest pain. The shortness of breath has been going on at least for the past several days that she has had increased nonproductive cough and has been using her nebulizers more often than every 4 hours. She has a history of COPD and continues to smoke cigarettes but does not require oxygen. She says that the chest pain started approximately 30 minutes prior to arrival as a tightness in the center of her chest that does not radiate cause her nausea vomiting or diaphoresis. She does have cardiac history requiring pacemaker and defibrillator placement however it appears that she had an MPI that was negative in 2019 and a heart catheterization in February 2021 that showed no stenosis. She has never required stents and has had 2 heart catheterizations in the past. She does have a history of high cholesterol and hypertension takes medications but she denies any history of diabetes. She coughs frequently but is in no acute di stress with normal vital signs other than hypertension and tachycardia noted. Allergies and Home Medications Allergies Coded Allergies: aspirin (Verified Allergy, Unknown, 03/07/19) latex (Verified Allergy, Unknown, 09/16/19) Home Medications Acetaminophen 500 Mg Tablet, 1,000 MG PO Q4H PRN for PAIN-MILD (1-4), (Reported) Albuterol Sulfate 1 Puff Puff, 2 PUFF INH Q4H PRN for SHORTNESS OF BREATH, (Reported) Amlodipine Besylate 10 Mg Tablet, 10 MG PO HS, (Reported) LAST FILLED #90 07-19-19 Azithromycin 250 Mg Tablet, 250 MG PO UD TAKE 2 TABLETS ON DAY ONE THEN TAKE 1 TABLET DAILY FOR FOUR MORE DAYS Prescribed by: MAKENNA DÍAZ on 04/15/212357 Clonidine HCl 0.1 Mg Tablet, 0.1 MG PO BID, (Reported) LAST FILLED #180 07-19-19 Diphenhydramine HCl 25 Mg Capsule, 50 MG PO HS PRN for SLEEP, (Reported) Fluoxetine HCl 20 Mg Capsule, 20 MG PO BID, (Reported) Hydrocodone/Acetaminophen 1 Each Tablet, 1 TAB PO Q4H PRN for PAIN-MODERATE (5- 7) Prescribed by: MAKENNA DÍAZ on 04/15/212357 Lisinopril 20 Mg Tablet, 20 MG PO HS, (Reported) LAST FILLED #90 07-19-19 Metoprolol Succinate 50 Mg Tab.er.24h, 50 MG PO BID, (Reported) LAST FILLED #180 07-19-19 Pantoprazole Sodium 40 Mg Tablet.dr, 40 MG PO DAILY, (Reported) Prednisone 20 Mg Tab, 40 MG PO DAILY Prescribed by: MAKENNA DÍAZ on 04/15/21 8472 Spironolactone 25 Mg Tablet, 25 MG PO DAILY, (Reported) LAST FILLED #90 07-19-19 Sucralfate 1 Gm Tablet, 1 GM PO BID PRN for STOMACH UPSET, (Reported) Patient Home Medication List Home Medication List Reviewed: Yes Review of Systems Review of Systems Constitutional: no symptoms reported EENTM: no symptoms reported Respiratory: cough, short of breath Cardiovascular: chest pain Gastrointestinal: no symptoms reported Genitourinary: no symptoms reported Musculoskeletal: no symptoms reported Skin: no symptoms reported Psychiatric/Neurological: No Symptoms Reported All Other Systems Reviewed Negative Unless Noted: Yes Past Qehsbsi-Rxddho-Czcdjd Hx Immunizations Up To Date Tetanus Booster (TDap): Unknown Seasonal Allergies Seasonal Allergies: No Past Medical History Surgeries: Yes (Cardiac defibrillator/pacemaker) Defibrillator, Gallbladder, Hysterectomy, Pacemaker, 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 Respiratory: Yes (Tobaccoism) COPD Cardiac: Yes (pacemaker/defib; a-fib, hx of VT, heart failure) Atrial Fibrillation, Heart Attack, High Cholesterol, Hypertension Neurological: No SAP BW ARCHITECT History: Hysterectomy, 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 Genitourinary: No Gastrointestinal: Yes (Esophageal Mass) Gastroesophageal Reflux, Hiatal Hernia Musculoskeletal: Yes (ruptured disks) Chronic Back Pain Endocrine: No HEENT: No Cancer: No Psychosocial: No Integumentary: No Blood Disorders: No Family Medical History Heart Disease Physical Exam Vital Signs Vital Signs - First Documented 04/15/21 21:20 Temp 36.8 Pulse 114 Resp 24 B/P (MAP) 155/130 (138) Pulse Ox 96 O2 Delivery Room Air Capillary Refill : Height, Weight, BMI Height: 5'7.00" Weight: 200lbs. 0oz. 90.416243ob; 37.00 BMI Method:Stated General Appearance: No Apparent Distress, Chronically ill HEENT: PERRL/EOMI Neck: Supple Respiratory: No Respiratory Distress, Decreased Breath Sounds, Expiration, Inspiration, Wheezing Cardiovascular: No Edema, Tachycardia Gastrointestinal: Non Tender, Soft Extremity: Normal Capillary Refill, No Pedal Edema Neurologic/Psychiatric: Alert, Oriented x3 Skin: Warm/Dry Progress/Results/Core Measures Suspected Sepsis SIRS Temperature: Pulse: Respiratory Rate: Laboratory Tests 04/15/21 21:28: White Blood Count 10.3 Blood Pressure / Mean: Laboratory Tests 04/15/21 21:28: Creatinine 0.73, INR Comment 0.9, Platelet Count 246, Total Bilirubin 0.2 Results/Orders Lab Results Laboratory Tests Test 04/15/21 21:28 04/15/21 21:55 04/15/21 23:20 Range/Units White Blood Count 10.3 4.3-11.0 10^3/uL Red Blood Count 4.82 4.35-5.85 10^6/uL Hemoglobin 14.6 11.5-16.0 G/DL Hematocrit 45 35-52 % Mean Corpuscular Volume 93 80-99 FL Mean Corpuscular Hemoglobin 30 25-34 PG Mean Corpuscular Hemoglobin Concent 33 32-36 G/DL Red Cell Distribution Width 14.0 10.0-14.5 % Platelet Count 246 130-400 10^3/uL Mean Platelet Volume 10.8 H 7.4-10.4 FL Immature Granulocyte % (Auto) 0 % Neutrophils (%) (Auto) 58 42-75 % Lymphocytes (%) (Auto) 34 12-44 % Monocytes (%) (Auto) 5 0-12 % Eosinophils (%) (Auto) 2 0-10 % Basophils (%) (Auto) 0 0-10 % Neutrophils # (Auto) 6.0 1.8-7.8 X 10^3 Lymphocytes # (Auto) 3.5 1.0-4.0 X 10^3 Monocytes # (Auto) 0.6 0.0-1.0 X 10^3 Eosinophils # (Auto) 0.2 0.0-0.3 10^3/uL Basophils # (Auto) 0.0 0.0-0.1 10^3/uL Immature Granulocyte # (Auto) 0.0 0.0-0.1 10^3/uL Prothrombin Time 11.9 L 12.2-14.7 SEC INR Comment 0.9 0.8-1.4 Activated Partial Thromboplast Time 26 24-35 SEC Sodium Level 142 135-145 MMOL/L Potassium Level 3.6 3.6-5.0 MMOL/L Chloride Level 104 98-107 MMOL/L Carbon Dioxide Level 24 21-32 MMOL/L Anion Gap 14 5-14 MMOL/L Blood Urea Nitrogen 12 7-18 MG/DL Creatinine 0.73 0.60-1.30 MG/DL Estimat Glomerular Filtration Rate > 60 BUN/Creatinine Ratio 16 Glucose Level 207 H 70-105 MG/DL Calcium Level 9.3 8.5-10.1 MG/DL Corrected Calcium 9.1 8.5-10.1 MG/DL Total Bilirubin 0.2 0.1-1.0 MG/DL Aspartate Amino Transf (AST/SGOT) 11 5-34 U/L Alanine Aminotransferase (ALT/SGPT) 14 0-55 U/L Alkaline Phosphatase 185 H 40-136 U/L Troponin I < 0.30 < 0.30 <0.30 NG/ML Pro-B-Type Natriuretic Peptide 484.6 H <75.0 PG/ML Total Protein 7.1 6.4-8.2 GM/DL Albumin 4.3 3.2-4.5 GM/DL My Orders Orders - MAKENNA DÍAZ DO Iv/Invasive Line Insertion .IV start (04/15/21 21:22) Cbc With Automated Diff (04/15/21 21:22) Comprehensive Metabolic Panel (04/15/21 21:22) Chest 1 View Ap/Pa Only (04/15/21 21:22) Ekg Tracing (04/15/21 21:22) Partial Thromboplastin Time (04/15/21 21:22) Probnp Fs (04/15/21 21:22) Protime With Inr (04/15/21 21:22) Troponin I Fs (04/15/21 21:22) Methylprednisolone Sod Succ (Solu-Medrol (04/15/21 21:30) Morphine Injection (Morphine Injection (04/15/21 21:29) Ondansetron Injection (Zofran Injectio (04/15/21 21:30) Albuterol/Ipra Inhalation Soln (Duoneb I (04/15/21 21:30) Svn Small Volume Nebulizer (04/15/21 21:29) Coronavirus Sars-Cov-2 So 2018 (04/15/21 21:30) Albuterol Pre-Mix Nebs (Rt) (Proventil (04/15/21 22:45) Svn Small Volume Nebulizer (04/15/21 22:41) Hydrocodone/Apap 5/325 Tablet (Lortab 5 (04/15/21 22:45) Troponin I Fs (04/15/21 22:41) Medications Given in ED Current Medications Medications Dose Ordered Sig/Norma Route Start Time Stop Time Status Last Admin Dose Admin Acetaminophen/ Hydrocodone Bitart 2 ea ONCE ONCE PO 04/15/21 22:45 04/15/21 22:46 DC 04/15/21 22:47 2 EA Albuterol Sulfate 5 mg ONCE ONCE INH 04/15/21 22:45 04/15/21 22:46 DC 04/15/21 22:46 5 MG Albuterol/ Ipratropium 3 ml ONCE ONCE INH 04/15/21 21:30 04/15/21 21:31 DC 04/15/21 21:46 3 ML Methylprednisolone Sodium Succinate 125 mg ONCE ONCE IM 04/15/21 21:30 04/15/21 21:31 DC 04/15/21 21:46 125 MG Ondansetron HCl 4 mg ONCE ONCE IVP 04/15/21 21:30 04/15/21 21:31 DC 04/15/21 21:47 4 MG Vital Signs/I&O 04/15/21 04/15/21 04/15/21 21:20 21:20 22:47 Temp 36.8 36.8 Pulse 114 Resp 24 B/P (MAP) 155/130 (138) Pulse Ox 96 O2 Delivery Room Air Room Air Capillary Refill : Progress Note : Progress Note Patient's chest tightness improved with breathing treatments Solu-Medrol and morphine. Her BNP is at its baseline and her troponin is negative and her EKG shows no signs of ischemia. She says she feels better and would like to try to go home I will go ahead and draw a second troponin to ensure it is not trending upwards and give her additional medications including more breathing treatments as she does still have wheezing although her aeration is improved. Patient's second troponin came back as well as and her symptoms continue to improve and she feels much better and is asking to go home. Her heart score is equal to 4 based off risk factors age and EKG. I told her that this puts her at higher risk for adverse coronary event and that admission the hospital would be warranted. Using shared decision making she said she would like to go home and be treated for COPD exacerbation and follow-up with her primary care provider as an outpatient. 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 I told her to use her nebulizers every 4 hours and I will prescribe her prednisone Suches and Zithromax. I told her to follow with her primary care provider as soon as possible preferably within the next 72 hours and she can come back to the emergency department anytime with worsening pain shortness of breath or other general concerns. Patient aware and agreeable with plan for discharge and verbalized understanding of above instructions. Departure Impression Primary Impression: Chest pain at rest Additional Impression: COPD with exacerbation Disposition: HOME, SELF-CARE Condition: Stable Departure-Patient Inst. Referrals: RICHARD HERMAN MD (PCP/Family) Primary Care Physician Patient Instructions: Chronic Obstructive Pulmonary Disease (COPD), Including Emphysema Scripts Azithromycin (Azithromycin) 250 Mg Tablet 250 MG PO UD, #6 TAB TAKE 2 TABLETS ON DAY ONE THEN TAKE 1 TABLET DAILY FOR FOUR MORE DAYS Prov: MAKENNA DÍAZ DO 04/15/21 Prednisone (Prednisone) 20 Mg Tab 40 MG PO DAILY, #8 TAB 0 Refills Prov: MAKENNA DÍAZ DO 04/15/21 Hydrocodone/Acetaminophen (Hydrocodone-Acetamin 5-325 mg) 1 Each Tablet 1 TAB PO Q4H PRN for PAIN-MODERATE (5-7), #14 TAB Prov: MAKENNA DÍAZ DO 04/15/21 MAKENNA DÍAZ DO Apr 15, 2021 21:21
[2021-04-15] MEDS ORDERED: morphine INJ 10 MG/ML 1ML (SYR OR VIAL) IVP STA (21:29)
[2021-04-15] MEDS ORDERED: methylPREDNISolone 125 MG (Solu-MEDROL) VIAL IM ONE (21:30)
[2021-04-15] MEDS ORDERED: RT-ALBUTEROL/IPRATROPIUM 3 ML (DUONEB) VIAL INH ONE (21:30)
[2021-04-15] MEDS ORDERED: ONDANSETRON 4 MG/2 ML (SDV) Z0FRAN IVP ONE (21:30)
--- NOTE | 2021-04-15 21:45 | Diagnostic Imaging Report ---
INDICATION: Shortness of breath and chest pain. EXAMINATION: A single view chest from 04/15/2021. COMPARISON: 02/03/2021 FINDINGS: There is a left-sided pacemaker stable from previous with the heart unremarkable. Pulmonary vasculature normal. Lungs and pleural spaces clear. IMPRESSION: 1. No acute cardiopulmonary process. Dictated by: Dictated on workstation # [id number]
[2021-04-15 21:46] LABS: WHITE BLOOD COUNT 10.3 10^3/uL (4.3-11.0)
[2021-04-15 21:47] LABS: HEMATOCRIT 45 % (35-52); HEMOGLOBIN 14.6 G/DL (11.5-16.0); LYMPHOCYTES % (AUTO) 34 % (12-44); MEAN CORPUSCULAR HEMOGLOBIN 30 PG (25-34); MEAN CORPUSCULAR HGB CONC 33 G/DL (32-36); MEAN CORPUSCULAR VOLUME 93 FL (80-99); MEAN PLATELET VOLUME 10.8 FL (7.4-10.4); MONOCYTES % (AUTO) 5 % (0-12); NEUTROPHILS % (AUTO) 58 % (42-75); PLATELET COUNT 246 10^3/uL (130-400)
[2021-04-15 21:48] LABS: BASOPHILS % (AUTO) 0 % (0-10); EOSINOPHILS # (AUTO) 0.2 10^3/uL (0.0-0.3); EOSINOPHILS % (AUTO) 2 % (0-10); LYMPHOCYTES # (AUTO) 3.5 X 10^3 (1.0-4.0); MONOCYTES # (AUTO) 0.6 X 10^3 (0.0-1.0)
[2021-04-15 21:51] LABS: INR 0.9 (0.8-1.4); PROTHROMBIN TIME PATIENT 11.9 SEC (12.2-14.7)
[2021-04-15 22:15] LABS: CARBON DIOXIDE 24 MMOL/L (21-32); CHLORIDE 104 MMOL/L (98-107); POTASSIUM 3.6 MMOL/L (3.6-5.0); SODIUM 142 MMOL/L (135-145)
[2021-04-15 22:16] LABS: ALANINE AMINOTRANSFERASE 14 U/L (0-55); ALKALINE PHOSPHATASE 185 U/L (40-136); BILIRUBIN,TOTAL 0.2 MG/DL (0.1-1.0); BUN/CREATININE RATIO 16; CALCIUM 9.3 MG/DL (8.5-10.1); CREATININE SERUM 0.73 MG/DL (0.60-1.30); GFR ESTIMATED > 60; GLUCOSE 207 MG/DL (70-105); TOTAL PROTEIN 7.1 GM/DL (6.4-8.2)
[2021-04-15 22:17] LABS: ALBUMIN 4.3 GM/DL (3.2-4.5)
[2021-04-15] MEDS ORDERED: MIRT-69 (22:29)
[2021-04-15] MEDS ORDERED: GABA-490 (22:29)
[2021-04-15] MEDS ORDERED: HYDROcodone/APAP 5 MG/325 MG (LORTAB) TAB PO ONE (22:45)
[2021-04-15] MEDS ORDERED: RT-ALBUTEROL SULF 2.5 MG/3 ML PRE-MIX VIAL INH ONE (22:45)
[2021-04-15] MEDS ORDERED: ACHD5005 PO (23:58)
[2021-04-15] MEDS ORDERED: AZIT250T12 PO (23:58)
[2021-04-15] MEDS ORDERED: PRD20T PO (23:58)
[2021-04-16 00:15] VITALS: BP 157/86
== END 2021-04-16 00:15 | disposition home or self-care (01) ==
LOC: EDUNIT# 21:18 → ER FS 21:19
DX: R07.9 Chest pain, unspecified (principal); J44.1 Chronic obstructive pulmonary disease with (acute) exacerbation; I10 Essential (primary) hypertension; I25.2 Old myocardial infarction; K21.9 Gastro-esophageal reflux disease without esophagitis; G89.29 Other chronic pain; M54.9 Dorsalgia, unspecified; Z20.822 Contact with and (suspected) exposure to COVID-19; Z79.899 Other long term (current) drug therapy; Z79.891 Long term (current) use of opiate analgesic
CPT/HCPCS: 36415; 71045; 80053; 83880; 84484; 85025; 85610; 85730; 87635; 87636; 93005

== ENCOUNTER 2021-05-16 20:01 | Emergency (ER) | payer BC ==
[~2021-05-16] VITALS: Ht 170.1 cm; Wt 105.9 kg
[~2021-05-16 20:01] MED LIST changes: +AZIT250T12 PO; +GABA-490; +MIRT-69
[2021-05-16 20:34] LABS: BASOPHILS % (AUTO) 0 % (0-10); EOSINOPHILS % (AUTO) 1 % (0-10); HEMATOCRIT 47 % (35-52); LYMPHOCYTES % (AUTO) 34 % (12-44); MEAN CORPUSCULAR HEMOGLOBIN 31 PG (25-34); MEAN CORPUSCULAR HGB CONC 34 G/DL (32-36); MEAN CORPUSCULAR VOLUME 90 FL (80-99); MEAN PLATELET VOLUME 10.7 FL (7.4-10.4); MONOCYTES % (AUTO) 7 % (0-12); NEUTROPHILS % (AUTO) 57 % (42-75); PLATELET COUNT 260 10^3/uL (130-400); WHITE BLOOD COUNT 10.7 10^3/uL (4.3-11.0)
[2021-05-16 20:35] LABS: BASOPHILS # (AUTO) 0.1 10^3/uL (0.0-0.1); EOSINOPHILS # (AUTO) 0.1 10^3/uL (0.0-0.3); LYMPHOCYTES # (AUTO) 3.7 X 10^3 (1.0-4.0); MONOCYTES # (AUTO) 0.8 X 10^3 (0.0-1.0)
[2021-05-16 20:39] LABS: INR 0.9 (0.8-1.4); PROTHROMBIN TIME PATIENT 12.6 SEC (12.2-14.7)
[2021-05-16 20:55] LABS: ALBUMIN 4.5 GM/DL (3.2-4.5); BILIRUBIN,TOTAL 0.3 MG/DL (0.1-1.0); CALCIUM 9.4 MG/DL (8.5-10.1); CREATININE SERUM 0.72 MG/DL (0.60-1.30); POTASSIUM 2.9 MMOL/L (3.6-5.0); TOTAL PROTEIN 7.6 GM/DL (6.4-8.2)
--- NOTE | 2021-05-16 21:12 | Diagnostic Imaging Report ---
INDICATION: Chest pain x 1 hour. TECHNIQUE: Single view chest 8:29 p.m. CORRELATION STUDY: 04/15/2021. FINDINGS: Left-sided AICD, stable. Heart size and mediastinum are unchanged. The lungs are clear with no consolidating infiltrate. There is no significant effusion or pneumothorax. IMPRESSION: Generally stable appearance of portable chest. Dictated by: Dictated on workstation # [id number]
--- NOTE | 2021-05-16 21:58 | ED General ---
General Chief Complaint: Cardiac/General Problems Stated Complaint: HEADACHE/CHEST PAIN Nursing Triage Note: PT IN PER POV WITH C/O CHEST PAIN X1 HOUR AGO AND A HEADACHE. REPORTS THAT SHE THOUGHT IT WAS A MIGRAINE. STATES SHE HAS NOT HAD HER BP MEDS YET TODAY. DENIES CP AT THIS TIME. Source of Information: Patient History of Present Illness Date Seen by Provider: May 16, 2021 Time Seen by Provider: 21:51 Initial Comments 51-year-old female presenting with complaints of headache in the frontal and top of her head x3 days and chest pain for the last hour prior to arrival. She states the chest pain is more sharp in nature and seems to be related to coughing. She also has elevated blood pressure. She had thought that she was having a migraine but taking medications at home were not helping the headache. She has not taken her blood pressure medicines for tonight yet. She has multiple blood pressure medications as her blood pressure is very hard to control and very labile. She has no nausea, vomiting, sweating, vision change, abdominal pain, burning with urination, shortness of breath. She has been coughing for several weeks. She denies any fever or chills. Associated Systoms: Chest Pain, Cough; No Diaphoresis, No Fever/Chills; Headaches, Loss of Appetite, Malaise; No Nausea/Vomiting, No Rash, No Seizure, No Shortness of Air, No Syncope Allergies and Home Medications Allergies Coded Allergies: aspirin (Verified Allergy, Unknown, 03/07/19) latex (Verified Allergy, Unknown, 09/16/19) Home Medications Acetaminophen 500 Mg Tablet, 1,000 MG PO Q4H PRN for PAIN-MILD (1-4), (Reported) Albuterol Sulfate 1 Puff Puff, 2 PUFF INH Q4H PRN for SHORTNESS OF BREATH, (Reported) Amlodipine Besylate 10 Mg Tablet, 10 MG PO HS, (Reported) LAST FILLED #90 07-19-19 Azithromycin 250 Mg Tablet, 250 MG PO UD TAKE 2 TABLETS ON DAY ONE THEN TAKE 1 TABLET DAILY FOR FOUR MORE DAYS Prescribed by: MAKENNA DÍAZ on 04/15/21 7447 Clonidine HCl 0.1 Mg Tablet, 0.1 MG PO BID, (Reported) LAST FILLED #180 07-19-19 Codeine Phosphate/Guaifenesin 473 Ml Liquid, 10 ML PO TID PRN for COUGH Prescribed by: LAMIN ADLER on 05/16/21 2327 Diphenhydramine HCl 25 Mg Capsule, 50 MG PO HS PRN for SLEEP, (Reported) Fluoxetine HCl 20 Mg Capsule, 20 MG PO BID, (Reported) Hydrocodone/Acetaminophen 1 Each Tablet, 1 TAB PO Q4H PRN for PAIN-MODERATE (5- 7) Prescribed by: MAKENNA DÍAZ on 04/15/21 235 Lisinopril 20 Mg Tablet, 20 MG PO HS, (Reported) LAST FILLED #90 07-19-19 Metoprolol Succinate 50 Mg Tab.er.24h, 50 MG PO BID, (Reported) LAST FILLED #180 07-19-19 Pantoprazole Sodium 40 Mg Tablet.dr, 40 MG PO DAILY, (Reported) Prednisone 20 Mg Tab, 40 MG PO DAILY Prescribed by: MAKENNA DÍAZ on 04/15/212357 Spironolactone 25 Mg Tablet, 25 MG PO DAILY, (Reported) LAST FILLED #90 07-19-19 Sucralfate 1 Gm Tablet, 1 GM PO BID PRN for STOMACH UPSET, (Reported) Patient Home Medication List Home Medication List Reviewed: Yes Review of Systems Review of Systems Constitutional: No chills, No diaphoresis, No dizziness, No fever; malaise EENTM: No epistaxis, No nose congestion Respiratory: see HPI Cardiovascular: see HPI Gastrointestinal: see HPI Genitourinary: no symptoms reported Musculoskeletal: no symptoms reported Skin: no symptoms reported Psychiatric/Neurological: Anxiety, Headache; Denies Numbness, Denies Weakness Past Pdeprgb-Lqrrzf-Vucoet Hx Patient Social History Tobacco Use?: Yes Tobacco type used: Cigarettes Smoking Status: Current Everyday Smoker Smokeless Tobacco Frequency: Unknown if Ever Used Use of E-Cig and/or Vaping dev: No Use of E-Cig and/or Vaping Edi: Unknown if Ever Used Substance use?: No Alcohol Use?: No Pt feels they are or have been: No Immunizations Up To Date Tetanus Booster (TDap): Unknown Seasonal Allergies Seasonal Allergies: No Past Medical History Surgeries: Yes (Cardiac defibrillator/pacemaker) Defibrillator, Gallbladder, Hysterectomy, Pacemaker, 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 Respiratory: Yes (Tobaccoism) COPD Cardiac: Yes (pacemaker/defib; a-fib, hx of VT, heart failure) Atrial Fibrillation, Heart Attack, High Cholesterol, Hypertension 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 0oz. 90.426747en; 36.00 BMI Method:Stated General Appearance: Anxious, Chronically ill, Mild Distress HEENT: PERRL/EOMI, Pharynx Normal Neck: Full Range of Motion, Normal Inspection, Non Tender, Supple Respiratory: No Accessory Muscle Use, No Respiratory Distress, Decreased Breath Sounds, Other (Tender to palpation of chest wall) Cardiovascular: Normal Peripheral Pulses, Tachycardia Gastrointestinal: Normal Bowel Sounds, No Pulsatile Mass, Non Tender, Soft Rectal: Deferred Extremity: Normal Capillary Refill, Normal Inspection, No Pedal Edema Neurologic/Psychiatric: Alert, Oriented x3 Skin: Normal Color, Warm/Dry Progress/Results/Core Measures Suspected Sepsis SIRS Temperature: Pulse: 115 Respiratory Rate: 16 Laboratory Tests 05/16/21 20:17: White Blood Count 10.7 Blood Pressure 199 /115 Mean: 140 Laboratory Tests 05/16/21 20:17: Creatinine 0.72, INR Comment 0.9, Platelet Count 260, Total Bilirubin 0.3 Results/Orders Lab Results Laboratory Tests Test 05/16/21 20:17 05/16/21 22:48 Range/Units White Blood Count 10.7 4.3-11.0 10^3/uL Red Blood Count 5.22 4.35-5.85 10^6/uL Hemoglobin 16.0 11.5-16.0 G/DL Hematocrit 47 35-52 % Mean Corpuscular Volume 90 80-99 FL Mean Corpuscular Hemoglobin 31 25-34 PG Mean Corpuscular Hemoglobin Concent 34 32-36 G/DL Red Cell Distribution Width 13.4 10.0-14.5 % Platelet Count 260 130-400 10^3/uL Mean Platelet Volume 10.7 H 7.4-10.4 FL Immature Granulocyte % (Auto) 0 % Neutrophils (%) (Auto) 57 42-75 % Lymphocytes (%) (Auto) 34 12-44 % Monocytes (%) (Auto) 7 0-12 % Eosinophils (%) (Auto) 1 0-10 % Basophils (%) (Auto) 0 0-10 % Neutrophils # (Auto) 6.0 1.8-7.8 X 10^3 Lymphocytes # (Auto) 3.7 1.0-4.0 X 10^3 Monocytes # (Auto) 0.8 0.0-1.0 X 10^3 Eosinophils # (Auto) 0.1 0.0-0.3 10^3/uL Basophils # (Auto) 0.1 0.0-0.1 10^3/uL Immature Granulocyte # (Auto) 0.0 0.0-0.1 10^3/uL Prothrombin Time 12.6 12.2-14.7 SEC INR Comment 0.9 0.8-1.4 Activated Partial Thromboplast Time 28 24-35 SEC Sodium Level 139 135-145 MMOL/L Potassium Level 2.9 L 3.6-5.0 MMOL/L Chloride Level 100 98-107 MMOL/L Carbon Dioxide Level 27 21-32 MMOL/L Anion Gap 12 5-14 MMOL/L Blood Urea Nitrogen 14 7-18 MG/DL Creatinine 0.72 0.60-1.30 MG/DL Estimat Glomerular Filtration Rate 85 BUN/Creatinine Ratio 19 Glucose Level 105 70-105 MG/DL Calcium Level 9.4 8.5-10.1 MG/DL Corrected Calcium 9.0 8.5-10.1 MG/DL Total Bilirubin 0.3 0.1-1.0 MG/DL Aspartate Amino Transf (AST/SGOT) 15 5-34 U/L Alanine Aminotransferase (ALT/SGPT) 21 0-55 U/L Alkaline Phosphatase 171 H 40-136 U/L Troponin I < 0.30 < 0.30 <0.30 NG/ML Total Protein 7.6 6.4-8.2 GM/DL Albumin 4.5 3.2-4.5 GM/DL My Orders Orders - LAMIN ADLER MD Ekg Tracing (05/16/21 20:31) Continuous Ekg Monitoring (05/16/21 20:31) Troponin I Fs (05/16/21 20:31) Cbc With Automated Diff (05/16/21 20:31) Chest 1 View Ap/Pa Only (05/16/21 20:32) Protime With Inr (05/16/21 20:36) Partial Thromboplastin Time (05/16/21 20:36) Comprehensive Metabolic Panel (05/16/21 20:52) Troponin I Fs (05/16/21 22:01) Labetalol Injection (Normodyne Injection (05/16/21 22:10) Fentanyl Inj (Sublimaze Injection) (05/16/21 22:10) Ondansetron Injection (Zofran Injectio (05/16/21 22:10) Pantoprazole Injection (Protonix Injecti (05/16/21 22:10) Ketorolac Injection (Toradol Injection) (05/16/21 22:10) Diphenhydramine Injection (Benadryl Inje (05/16/21 22:10) Diphenhydramine Injection (Benadryl Inje (05/16/21 23:19) Fentanyl Inj (Sublimaze Injection) (05/16/21 23:19) Vital Signs/I&O 05/16/21 05/16/21 05/16/21 05/16/21 20:05 20:05 21:33 23:41 Temp 36.7 36.5 36.5 Pulse 115 106 84 Resp 16 27 22 B/P (MAP) 199/115 (143) 190/115 (140) 149/96 (140) Pulse Ox 100 96 96 O2 Delivery Room Air Room Air Room Air Room Air Capillary Refill : Less Than 3 Seconds Blood Pressure Mean: 140 Progress Note #1: Progress Note Patient discussed with me on arrival and initial labs and testing ordered based off of chest pain orders. No acute ischemic changes on EKG. Chest x-ray did not demonstrate any acute infiltrate or edema or effusion. Her initial labs were all stable without acute significant abnormality. Her potassium was slightly low. Troponin was 0. Will try medication to help with blood pressure, general pain, cough, migraine type headache, seasonal allergy type symptoms. Progress Note #2: Progress Note After fentanyl, Benadryl, labetalol, Toradol, Protonix, Zofran per symptoms were improved and blood pressure was improved. Her repeat troponin was still 0. Counseled on follow-up and return precautions. Will repeat Benadryl and fentanyl prior to discharge and encouraged to take her blood pressure medicine when she gets home. Patient requested refill of cough medicine she got in January as it had helped with her breathing and coughing. Since the chest x-ray did not demonstrate any acute infiltrate or effusion we will try the cough syrup and have her check back with the clinic ECG Initial ECG Impression Date: May 16, 2021 Initial ECG Impression Time: 20:07 Initial ECG Rate: 115 Initial ECG Rhythm: S.Tach Initial ECG Comparisson: Unchanged Comment Sinus tachycardia with a heart rate of 115 bpm. NV interval 170 ms. Borderline prolonged QT interval of 354 ms with a QTc interval of 486 ms. There is no acute ST elevation. This appears similar to prior tracings in the system. Diagnostic Imaging Diagonstic Imaging: Xray Plain Films/CT/US/NM/MRI: chest Comments [facility]. [place], [place] NAME: JENNIFER DICKERSON [facility] REC#: [id number] PT STATUS: REG ER : 1970 PHYSICIAN: LAMIN ADLER MD ADMIT DATE: 05/16/21/ER FS Draft Date of Exam:05/16/21 CHEST 1 VIEW AP/PA ONLY INDICATION: Chest pain x 1 hour. TECHNIQUE: Single view chest 8:29 p.m. CORRELATION STUDY: 04/15/2021. FINDINGS: Left-sided AICD, stable. Heart size and mediastinum are unchanged. The lungs are clear with no consolidating infiltrate. There is no significant effusion or pneumothorax. IMPRESSION: Generally stable appearance of portable chest. Dictated on workstation # [id number] Dict: 05/16/212104 Trans: 05/16/212110 [facility] [id number] Interpreted by: SAI REYNOLDS DO Electronically signed by: Departure Impression Primary Impression: Labile essential hypertension Additional Impressions: Frontal headache Cough in adult Non-cardiac chest pain Hypokalemia Disposition: HOME, SELF-CARE Condition: Improved Departure-Patient Inst. Decision time for Depature: 23:27 Referrals: RICHARD HERMAN MD (PCP/Family) Primary Care Physician Patient Instructions: Cough, Adult ED, Headache, Adult ED, High Blood Pressure ED, Hypokalemia (DC) Add. Discharge Instructions: Take your blood pressure meds when you get home Rest in a cool dark room Try the cough medicine to help with your coughing and chest pain from cough. Follow up with clinic for continued headache and trouble with blood pressure. Increase the potassium rich foods in your diet to help bring up your potassium level All discharge instructions reviewed with patient and/or family. Voiced understanding. Scripts Codeine Phosphate/Guaifenesin (Maxi-Tuss AC Liquid) 473 Ml Liquid 10 ML PO TID PRN for COUGH for 5 Days, #150 ML 0 Refills Prov: LAMIN ADLER MD 05/16/21 LAMIN ADLER MD May 16, 2021 21:58
[2021-05-16] MEDS ORDERED: PANTOPRAZOLE 40 MG (PROTONIX) VIAL IV STA (22:10)
[2021-05-16] MEDS ORDERED: LABETALOL HCL 20 MG/4 ML VIAL IV STA (22:10)
[2021-05-16] MEDS ORDERED: ONDANSETRON 4 MG/2 ML (SDV) Z0FRAN IVP STA (22:10)
[2021-05-16] MEDS ORDERED: fentaNYL INJ 100 MCG/2 ML AMP IVP STA ×2 (22:10→23:19)
[2021-05-16] MEDS ORDERED: KETOROLAC 30 MG/ML VIAL IVP STA (22:10)
[2021-05-16] MEDS ORDERED: diphenhydrAMINE 50 MG/ML INJ (BENADRYL) IVP STA ×2 (22:10→23:19)
[2021-05-16] MEDS ORDERED: [UNRECOGNIZED DRUG - CODE] PO (23:26)
[2021-05-16 23:41] VITALS: BP 149/96
== END 2021-05-16 23:41 | disposition home or self-care (01) ==
LOC: EDUNIT# 20:01 → ER FS 20:05
DX: I11.0 Hypertensive heart disease with heart failure (principal); R51.9 Headache, unspecified; R05 Cough; R07.89 Other chest pain; E87.6 Hypokalemia; J44.9 Chronic obstructive pulmonary disease, unspecified; I25.2 Old myocardial infarction; I50.9 Heart failure, unspecified; K21.9 Gastro-esophageal reflux disease without esophagitis; G89.29 Other chronic pain; M54.9 Dorsalgia, unspecified; F17.210 Nicotine dependence, cigarettes, uncomplicated; Z95.810 Presence of automatic (implantable) cardiac defibrillator; Z79.52 Long term (current) use of systemic steroids; Z79.891 Long term (current) use of opiate analgesic; Z79.899 Other long term (current) drug therapy
CPT/HCPCS: 36415; 71045; 80053; 84484; 85025; 85610; 85730; 93005

== ENCOUNTER 2021-06-11 20:26 | Emergency (ER) | payer BC ==
[~2021-06-11] VITALS: Ht 170.1 cm; Wt 105.7 kg
[2021-06-11] MEDS ORDERED: LORazepam INJ 2 MG/ML (ATIVAN) VIAL IVP STA (20:39)
[2021-06-11] MEDS ORDERED: LABETALOL HCL 20 MG/4 ML VIAL IV STA (20:39)
[2021-06-11] MEDS ORDERED: PANTOPRAZOLE 40 MG (PROTONIX) VIAL IV STA (20:39)
[2021-06-11] MEDS ORDERED: diphenhydrAMINE 50 MG/ML INJ (BENADRYL) IVP STA ×2 (20:39→22:41)
[2021-06-11] MEDS ORDERED: fentaNYL INJ 100 MCG/2 ML AMP IVP STA ×2 (20:39→22:41)
--- NOTE | 2021-06-11 20:47 | ED Chest Pain ---
General Stated Complaint: CHEST PAIN Source: patient, old records History of Present Illness Date Seen by Provider: Jun 11, 2021 Time Seen by Provider: 20:28 Initial Comments 51-year-old female presenting with complaints of 3 days of chest pain and pressure. She states it was worse tonight so she came to the ED. She has been sweating a lot in the last couple days. She denies anything making her chest pain better or worse. She denies being out of any medications. She is very anxious and tearful. She has elevated blood pressure on arrival to the ED. She denies any nausea or vomiting. She denies fever, chills, pain with urination, change in bowels. She has had some mild cough and shortness of breath. This has been a chronic issue for her. Timing/Duration: 2-3 days Severity/Quality: severe, pressure Location: substernal Radiation: no radiation Activities at Onset: none Prior CP/Workup: angina, cardiac cath, echocardiography ASA po SOCIAL SCIENCE MANAGER: No NTG SL SOCIAL SCIENCE MANAGER: No Associated Symptoms: No abdominal pain, No back pain; diaphoresis; No dizziness, No edema; fatigue; No fever/chills; headache; No heartburn, No nausea/vomiting, No rash; shortness of breath (chronic) Allergies and Home Medications Allergies Coded Allergies: aspirin (Verified Allergy, Unknown, 03/07/19) latex (Verified Allergy, Unknown, 09/16/19) Home Medications Acetaminophen 500 Mg Tablet, 1,000 MG PO Q4H PRN for PAIN-MILD (1-4), (Reported) Albuterol Sulfate 1 Puff Puff, 2 PUFF INH Q4H PRN for SHORTNESS OF BREATH, (Reported) Amlodipine Besylate 10 Mg Tablet, 10 MG PO HS, (Reported) LAST FILLED #90 07-19-19 Azithromycin 250 Mg Tablet, 250 MG PO UD TAKE 2 TABLETS ON DAY ONE THEN TAKE 1 TABLET DAILY FOR FOUR MORE DAYS Prescribed by: MAKENNA DÍAZ on 04/15/21 5613 Clonidine HCl 0.1 Mg Tablet, 0.1 MG PO BID, (Reported) LAST FILLED #180 07-19-19 Codeine Phosphate/Guaifenesin 473 Ml Liquid, 10 ML PO TID PRN for COUGH Prescribed by: LAMIN ADLER on 06/11/21 7401 Diphenhydramine HCl 25 Mg Capsule, 50 MG PO HS PRN for SLEEP, (Reported) Fluoxetine HCl 20 Mg Capsule, 20 MG PO BID, (Reported) Hydrocodone/Acetaminophen 1 Each Tablet, 1 TAB PO Q4H PRN for PAIN-MODERATE (5- 7) Prescribed by: MAKENNA DÍAZ on 04/15/212357 Lisinopril 20 Mg Tablet, 20 MG PO HS, (Reported) LAST FILLED #90 07-19-19 Metoprolol Succinate 50 Mg Tab.er.24h, 50 MG PO BID, (Reported) LAST FILLED #180 07-19-19 Pantoprazole Sodium 40 Mg Tablet.dr, 40 MG PO DAILY, (Reported) Prednisone 20 Mg Tab, 40 MG PO DAILY Prescribed by: MAKENNA DÍAZ on 04/15/212357 Spironolactone 25 Mg Tablet, 25 MG PO DAILY, (Reported) LAST FILLED #90 07-19-19 Sucralfate 1 Gm Tablet, 1 GM PO BID PRN for STOMACH UPSET, (Reported) Patient Home Medication List Home Medication List Reviewed: Yes Review of Systems Review of Systems Constitutional: see HPI EENTM: No Symptoms Reported Respiratory: See HPI Cardiovascular: See HPI Gastrointestinal: Denies Nausea, Denies Vomiting Genitourinary: No Symptoms Reported Musculoskeletal: no symptoms reported Skin: No rash Psychiatric/Neurological: Anxiety Endocrine: Excessive Sweating, Flushing Past Fgahykr-Hskmmj-Ltmakx Hx Immunizations Up To Date Tetanus Booster (TDap): Unknown Seasonal Allergies Seasonal Allergies: No Past Medical History Surgeries: Yes (Cardiac defibrillator/pacemaker) Defibrillator, Gallbladder, Hysterectomy, Pacemaker, 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 Respiratory: Yes (Tobaccoism) COPD Cardiac: Yes (pacemaker/defib; a-fib, hx of VT, heart failure) Atrial Fibrillation, Heart Attack, High Cholesterol, Hypertension Neurological: No 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 0oz. 90.640863ub; 36.00 BMI Method:Stated General Appearance: Anxious, Moderate Distress (tearful), Obese HEENT: PERRL/EOMI, Pharynx Normal Neck: Full Range of Motion, Normal Inspection, Non Tender, Supple Respiratory: Chest Non Tender, No Accessory Muscle Use, No Respiratory Distress, Decreased Breath Sounds Cardiovascular: Regular Rate, Rhythm, Normal Peripheral Pulses Gastrointestinal: Normal Bowel Sounds, No Pulsatile Mass, Non Tender, Soft Rectal: Deferred Extremity: Normal Capillary Refill, Normal Inspection, No Pedal Edema Neurologic/Psychiatric: Alert, Oriented x3, geographic analyst II-XII Norm as Tested Skin: Normal Color, Warm/Dry Images 1 - pressure and heaviness in chest Progress/Results/Core Measures Results/Orders Lab Results Laboratory Tests Test 06/11/21 20:56 06/11/21 21:51 Range/Units White Blood Count 9.7 4.3-11.0 10^3/uL Red Blood Count 5.29 H 3.80-5.11 10^6/uL Hemoglobin 16.2 H 11.5-16.0 g/dL Hematocrit 48 35-52 % Mean Corpuscular Volume 92 80-99 fL Mean Corpuscular Hemoglobin 31 25-34 pg Mean Corpuscular Hemoglobin Concent 34 32-36 g/dL Red Cell Distribution Width 14.9 H 10.0-14.5 % Platelet Count 294 130-400 10^3/uL Mean Platelet Volume 10.4 9.0-12.2 fL Immature Granulocyte % (Auto) 0 % Neutrophils (%) (Auto) 63 42-75 % Lymphocytes (%) (Auto) 29 12-44 % Monocytes (%) (Auto) 6 0-12 % Eosinophils (%) (Auto) 2 0-10 % Basophils (%) (Auto) 0 0-10 % Neutrophils # (Auto) 6.1 1.8-7.8 X 10^3 Lymphocytes # (Auto) 2.9 1.0-4.0 X 10^3 Monocytes # (Auto) 0.6 0.0-1.0 X 10^3 Eosinophils # (Auto) 0.2 0.0-0.3 10^3/uL Basophils # (Auto) 0.0 0.0-0.1 10^3/uL Immature Granulocyte # (Auto) 0.0 0.0-0.1 10^3/uL Prothrombin Time 12.4 12.2-14.7 SEC INR Comment 0.9 0.8-1.4 Activated Partial Thromboplast Time 26 24-35 SEC Sodium Level 135 141 135-145 MMOL/L Potassium Level 6.7 *H 4.2 3.6-5.0 MMOL/L Chloride Level 102 106 98-107 MMOL/L Carbon Dioxide Level 22 23 21-32 MMOL/L Anion Gap 11 12 5-14 MMOL/L Blood Urea Nitrogen 18 20 H 7-18 MG/DL Creatinine 0.70 0.79 0.60-1.30 MG/DL Estimat Glomerular Filtration Rate 88 76 BUN/Creatinine Ratio 26 25 Glucose Level 138 H 132 H 70-105 MG/DL Calcium Level 9.3 9.6 8.5-10.1 MG/DL Corrected Calcium 9.1 8.5-10.1 MG/DL Magnesium Level 2.0 1.6-2.4 MG/DL Total Bilirubin 0.3 0.1-1.0 MG/DL Aspartate Amino Transf (AST/SGOT) 39 H 5-34 U/L Alanine Aminotransferase (ALT/SGPT) 16 0-55 U/L Alkaline Phosphatase 168 H 40-136 U/L Troponin I 0.30 <0.30 NG/ML Pro-B-Type Natriuretic Peptide 1993.0 H <75.0 PG/ML Total Protein 7.9 6.4-8.2 GM/DL Albumin 4.2 3.2-4.5 GM/DL Lipase 26 8-78 U/L My Orders Orders - LAMIN ADLER MD Cbc With Automated Diff (06/11/21 20:31) Magnesium (06/11/21 20:31) Chest 1 View Ap/Pa Only (06/11/21 20:31) Ekg Tracing (06/11/21 20:31) Comprehensive Metabolic Panel (06/11/21 20:31) Protime With Inr (06/11/21 20:31) Partial Thromboplastin Time (06/11/21 20:31) O2 (06/11/21 20:31) Monitor-Rhythm Ecg Trace Only (06/11/21 20:31) Ed Iv/Invasive Line Start (06/11/21 20:31) Lipase (06/11/21 20:31) Troponin I Fs (06/11/21 20:31) Probnp Fs (06/11/21 20:31) Fentanyl Inj (Sublimaze Injection) (06/11/21 20:39) Labetalol Injection (Normodyne Injection (06/11/21 20:39) Pantoprazole Injection (Protonix Injecti (06/11/21 20:39) Diphenhydramine Injection (Benadryl Inje (06/11/21 20:39) Lorazepam Injection (Ativan Injection) (06/11/21 20:39) Basic Metabolic Panel (06/11/21 21:43) Albuterol/Ipra Inhalation Soln (Duoneb I (06/11/21 21:43) Svn Small Volume Nebulizer (06/11/21 21:43) Fentanyl Inj (Sublimaze Injection) (06/11/21 22:41) Diphenhydramine Injection (Benadryl Inje (06/11/21 22:41) Vital Signs/I&O 06/11/21 06/11/21 20:29 20:29 Temp 37.0 Pulse 97 Resp 15 B/P (MAP) 247/142 (177) Pulse Ox 96 O2 Delivery Room Air Room Air Progress Progress Note #1: Progress Note Check labs, ECG,CXR, cardiac enzymes. Fentanyl for pain, Benadryl for itching from fentanyl, ativan for anxiety, protonix for possible GI component to pain. Pt refused aspirin stating she is allergic and can not take it as it causes her to have a heart attack. Labetalol for pressure. Differential diagnosis anxiety, myocardial infarction, hypertensive urgency, heart failure with exacerbation, non-compliance with meds Progress Note #2: Progress Note labs show stable CBC without acute elevation of WBC. Chest xray shows poor inspiratory effort and large amount of gas in stomach and atelectasis right lung base . Chemistry without acute significant abnormality but did have elevated potassium of 6.3. Will recheck to see if might be hemolysis as she has always been low before and has normal renal function tonight. Troponin is negative at <0.3. She is more calm and feeling better with blood pressure down to 150/99. She is having wheezing with her breathing and is due for breathing treatment so will give Duoneb here while repeating the chem 7 to check potassium. Since she has negative Troponin after pain for 3 days this is not consistent with myocardial infarction. The heaviness and pressure on her chest is likely due to some COPD on top of uncontrolled hypertension. She is also asking about getting more cough syrup with codeine in it like was prescribed by my at beginning of month when she was here for similar symptoms. She states Dr. Wilde, her PCP, will not prescribe it for her because it is a narcotic. I told her we will try the breathing treatment and recheck the potassium but that the ED would not be refilling the codeine cough syrup as she likely needs adjustment of meds and treatment for COPD and HTN instead of a narcotic cough syrup. Progress Note #3: Progress Note recheck of chemistry shows potassium is normal at 4.2. Doing better after breat cate treatment as well. Will discharge to home and see about having her follow up with cardiology sooner if more problems/concerns. She reports she has appt to see pcp and cards in 2 weeks. Will discharge with a script for 5 days of cough syrup to help with chest wall pain from cough, repeat benadryl and another 50 mcg of fentanyl prior to discharge to help her rest at home. Initial ECG Impression Date: Jun 11, 2021 Initial ECG Impression Time: 20:31 Initial ECG Rate: 96 Initial ECG Rhythm: Normal Sinus Initial ECG Comparisson: Unchanged Comment Normal sinus rhythm with a heart rate of 96 bpm. [place] interval 182 ms. QT interval 374 ms with a QTc interval 473 ms. There is no acute ST elevation. Appears similar to prior tracings in the system. Diagnostic Imaging Diagonstic Imaging: Xray Plain Films/CT/US/NM/MRI: chest Comments [facility]. [place], [place] NAME: JENNIFER DICKERSON [facility] REC#: [id number] PT STATUS: REG ER : 1970 PHYSICIAN: LAMIN ADLER MD ADMIT DATE: 06/11/21/ER FS Draft Date of Exam:06/11/21 CHEST 1 VIEW AP/PA ONLY INDICATION: Chest pain x 3 days. TECHNIQUE: Single view chest 8:44 PM. CORRELATION STUDY: 05/16/2021. FINDINGS: Left-sided AICD, stable. Heart size and mediastinum appear unchanged. Vasculature is stable. Suggestion of slight increased markings developing at the right lung base. May reflect atelectasis and/or infiltrate. Elevated left diaphragm with gas distention of the stomach. IMPRESSION: 1. New density at the right lung base could be reflective of mild edema versus infiltrate and/or atelectasis. 2. Elevated left diaphragm with gas distention of the stomach. Dictated on workstation # [id number] Dict: 06/11/212116 Trans: 06/11/212132 PJE [id number] Interpreted by: SAI REYNOLDS DO Electronically signed by: Reviewed: Reviewed by Me Departure Impression Primary Impression: Hypertension Qualified Codes: I10 - Essential (primary) hypertension Additional Impressions: Chest pain in adult Anxiety COPD with exacerbation Disposition: HOME, SELF-CARE Condition: Improved Departure-Patient Inst. Decision time for Depature: 22:45 Referrals: RICHARD WILDE MD (PCP) Primary Care Physician Patient Instructions: High Blood Pressure ED, Anxiety, Adult ED, Chest Pain, Ad ult ED, Controlling Your Blood Pressure Through Lifestyle Add. Discharge Instructions: Continue on your medicine for blood pressure and breathing. Call Cardiology and Dr. Wilde about follow up to see if they want to have you be seen sooner than 2 weeks or adjust any medicine before you are seen. Scripts Codeine Phosphate/Guaifenesin (Maxi-Tuss AC Liquid) 473 Ml Liquid 10 ML PO TID PRN for COUGH for 5 Days, #150 ML 0 Refills Prov: LAMIN ADLER MD 06/11/21 LAMIN ADLER MD Jun 11, 2021 20:47
[2021-06-11 21:13] LABS: HEMATOCRIT 48 % (35-52); HEMOGLOBIN 16.2 g/dL (11.5-16.0); MEAN CORPUSCULAR HEMOGLOBIN 31 pg (25-34); MEAN CORPUSCULAR VOLUME 92 fL (80-99); WHITE BLOOD COUNT 9.7 10^3/uL (4.3-11.0)
[2021-06-11 21:14] LABS: BASOPHILS % (AUTO) 0 % (0-10); EOSINOPHILS # (AUTO) 0.2 10^3/uL (0.0-0.3); EOSINOPHILS % (AUTO) 2 % (0-10); LYMPHOCYTES # (AUTO) 2.9 X 10^3 (1.0-4.0); LYMPHOCYTES % (AUTO) 29 % (12-44); MEAN CORPUSCULAR HGB CONC 34 g/dL (32-36); MEAN PLATELET VOLUME 10.4 fL (9.0-12.2); MONOCYTES # (AUTO) 0.6 X 10^3 (0.0-1.0); MONOCYTES % (AUTO) 6 % (0-12); NEUTROPHILS # (AUTO) 6.1 X 10^3 (1.8-7.8); NEUTROPHILS % (AUTO) 63 % (42-75); PLATELET COUNT 294 10^3/uL (130-400)
[2021-06-11 21:15] LABS: INR 0.9 (0.8-1.4); PROTHROMBIN TIME PATIENT 12.4 SEC (12.2-14.7)
[2021-06-11 21:26] LABS: BILIRUBIN,TOTAL 0.3 MG/DL (0.1-1.0); CALCIUM 9.3 MG/DL (8.5-10.1); CREATININE SERUM 0.7 MG/DL (0.60-1.30); TOTAL PROTEIN 7.9 GM/DL (6.4-8.2)
[2021-06-11 21:27] LABS: ALBUMIN 4.2 GM/DL (3.2-4.5)
--- NOTE | 2021-06-11 21:33 | Diagnostic Imaging Report ---
INDICATION: Chest pain x 3 days. TECHNIQUE: Single view chest 8:44 PM. CORRELATION STUDY: 05/16/2021. FINDINGS: Left-sided AICD, stable. Heart size and mediastinum appear unchanged. Vasculature is stable. Suggestion of slight increased markings developing at the right lung base. May reflect atelectasis and/or infiltrate. Elevated left diaphragm with gas distention of the stomach. IMPRESSION: 1. New density at the right lung base could be reflective of mild edema versus infiltrate and/or atelectasis. 2. Elevated left diaphragm with gas distention of the stomach. Dictated by: Dictated on workstation # [id number]
[2021-06-11] MEDS ORDERED: RT-ALBUTEROL/IPRATROPIUM 3 ML (DUONEB) VIAL INH STA (21:43)
[2021-06-11 21:52] LABS: POTASSIUM 6.7 MMOL/L (3.6-5.0)
[2021-06-11 22:14] LABS: CALCIUM 9.6 MG/DL (8.5-10.1); CREATININE SERUM 0.79 MG/DL (0.60-1.30); POTASSIUM 4.2 MMOL/L (3.6-5.0)
[2021-06-11] MEDS ORDERED: [UNRECOGNIZED DRUG - CODE] PO (22:44)
[2021-06-11 22:50] VITALS: BP 155/100
[2021-06-12] MEDS ORDERED: FURO-125 PO (20:25)
== END 2021-06-11 22:50 | disposition home or self-care (01) ==
LOC: EDUNIT# 20:26 → ER FS 20:27
DX: I11.0 Hypertensive heart disease with heart failure (principal); I50.9 Heart failure, unspecified; J44.1 Chronic obstructive pulmonary disease with (acute) exacerbation; F41.9 Anxiety disorder, unspecified; I48.91 Unspecified atrial fibrillation; I25.2 Old myocardial infarction; K21.9 Gastro-esophageal reflux disease without esophagitis; G89.29 Other chronic pain; M54.9 Dorsalgia, unspecified; E66.9 Obesity, unspecified; Z68.36 Body mass index [BMI] 36.0-36.9, adult; Z95.810 Presence of automatic (implantable) cardiac defibrillator; Z79.52 Long term (current) use of systemic steroids; Z79.891 Long term (current) use of opiate analgesic; Z79.899 Other long term (current) drug therapy
CPT/HCPCS: 36415; 71045; 80048; 80053; 83690; 83735; 83880; 84484; 85025; 85610; 85730; 93041

== ENCOUNTER 2021-06-12 17:39 | Emergency (ER) | payer BC ==
[~2021-06-12] VITALS: Ht 170 cm; Wt 108.0 kg
[~2021-06-12 17:39] MED LIST changes: -GABA-490; +GABA-490 PO; +GFCD10B PO; -GUAI473L29 PO; -MIRT-69; +MIRT-69 PO
--- NOTE | 2021-06-12 17:57 | ED Respiratory ---
General Chief Complaint: Respiratory Problems History of Present Illness Date Seen by Provider: Jun 12, 2021 Time Seen by Provider: 17:57 Initial Comments 51-year-old female presents with shortness of breath. Patient reports that earlier today she developed significant shortness of breath. Patient has a history of COPD uses inhalers along with a remote history of being on diuretics. Patient was seen last night for similar symptoms with chest pain. Patient had a negative evaluation last night. EMS reports they gave her 2 DuoNeb's in route which helped system improved significantly. She reports low oxygen level when they arrived. She denies any fevers or chills. Allergies and Home Medications Allergies Coded Allergies: aspirin (Verified Allergy, Unknown, 03/07/19) latex (Verified Allergy, Unknown, 09/16/19) Home Medications Acetaminophen 500 Mg Tablet, 1,000 MG PO Q4H PRN for PAIN-MILD (1-4), (Reported) Albuterol Sulfate 1 Puff Puff, 2 PUFF INH Q4H PRN for SHORTNESS OF BREATH, (Reported) Amlodipine Besylate 10 Mg Tablet, 10 MG PO HS, (Reported) LAST FILLED #90 07-19- Azithromycin 250 Mg Tablet, 250 MG PO UD TAKE 2 TABLETS ON DAY ONE THEN TAKE 1 TABLET DAILY FOR FOUR MORE DAYS Prescribed by: MAKENNA DÍAZ on 04/15/212357 Clonidine HCl 0.1 Mg Tablet, 0.1 MG PO BID, (Reported) LAST FILLED #180 07-19- Codeine Phosphate/Guaifenesin 473 Ml Liquid, 10 ML PO TID PRN for COUGH Prescribed by: LAMIN ADLER on 06/11/212243 Diphenhydramine HCl 25 Mg Capsule, 50 MG PO HS PRN for SLEEP, (Reported) Fluoxetine HCl 20 Mg Capsule, 20 MG PO BID, (Reported) Furosemide 20 Mg Tablet, 20 MG PO DAILY Prescribed by: TERESSA LOPEZ on 06/12/212024 Hydrocodone/Acetaminophen 1 Each Tablet, 1 TAB PO Q4H PRN for PAIN-MODERATE (5- 7) Prescribed by: MAKENNA DÍAZ on 04/15/212357 Lisinopril 20 Mg Tablet, 20 MG PO HS, (Reported) LAST FILLED #90 104- Metoprolol Succinate 50 Mg Tab.er.24h, 50 MG PO BID, (Reported) LAST FILLED #180 10-4-19 Pantoprazole Sodium 40 Mg Tablet.dr, 40 MG PO DAILY, (Reported) Prednisone 20 Mg Tab, 40 MG PO DAILY Prescribed by: MAKENNA DÍAZ on 04/15/21 7803 Spironolactone 25 Mg Tablet, 25 MG PO DAILY, (Reported) LAST FILLED #90 07-19-19 Sucralfate 1 Gm Tablet, 1 GM PO BID PRN for STOMACH UPSET, (Reported) Patient Home Medication List Home Medication List Reviewed: Yes Review of Systems Review of Systems Constitutional: No chills, No fever Respiratory: cough, short of breath Cardiovascular: chest pain; No palpitations, No syncope Gastrointestinal: abdominal pain; No nausea, No vomiting Genitourinary: no symptoms reported Musculoskeletal: no symptoms reported Skin: no symptoms reported Psychiatric/Neurological: No Symptoms Reported Hematologic/Lymphatic: No Symptoms Reported Immunological/Allergic: no symptoms reported Past Lnjxroe-Cfkcop-Rwlmlo Hx Immunizations Up To Date Tetanus Booster (TDap): Unknown Seasonal Allergies Seasonal Allergies: No Past Medical History Surgery/Hospitalization HX: chest pain, cardiac history Surgeries: Yes (Cardiac defibrillator/pacemaker) Defibrillator, Gallbladder, Hysterectomy, Pacemaker, 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 Respiratory: Yes (Tobaccoism) COPD Cardiac: Yes (pacemaker/defib; a-fib, hx of VT, heart failure) Atrial Fibrillation, Heart Attack, High Cholesterol, Hypertension 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 0oz. 90.350455up; 36.00 BMI Method:Stated General Appearance: no apparent distress HEENT: normal ENT inspection Neck: full range of motion, supple, normal inspection Respiratory: lungs clear, decreased breath sounds (Mild diffuse) Cardiovascular: normal peripheral pulses, regular rate, rhythm Gastrointestinal: non tender, soft Neurologic/Psychiatric: alert, normal mood/affect, oriented x 3 Skin: normal color, warm/dry Progress/Results/Core Measures Suspected Sepsis SIRS Temperature: Pulse: Respiratory Rate: Laboratory Tests 06/12/21 18:17: White Blood Count 8.7 Blood Pressure / Mean: Laboratory Tests 06/12/21 18:17: Creatinine 0.69, Platelet Count 230, Total Bilirubin 0.3 Results/Orders Lab Results Laboratory Tests Test 06/12/21 18:17 Range/Units White Blood Count 8.7 4.3-11.0 10^3/uL Red Blood Count 5.04 3.80-5.11 10^6/uL Hemoglobin 15.3 11.5-16.0 g/dL Hematocrit 46 35-52 % Mean Corpuscular Volume 92 80-99 fL Mean Corpuscular Hemoglobin 30 25-34 pg Mean Corpuscular Hemoglobin Concent 33 32-36 g/dL Red Cell Distribution Width 14.2 10.0-14.5 % Platelet Count 230 130-400 10^3/uL Mean Platelet Volume 10.3 9.0-12.2 fL Immature Granulocyte % (Auto) 0 % Neutrophils (%) (Auto) 68 42-75 % Lymphocytes (%) (Auto) 26 12-44 % Monocytes (%) (Auto) 4 0-12 % Eosinophils (%) (Auto) 1 0-10 % Basophils (%) (Auto) 0 0-10 % Neutrophils # (Auto) 6.0 1.8-7.8 X 10^3 Lymphocytes # (Auto) 2.3 1.0-4.0 X 10^3 Monocytes # (Auto) 0.3 0.0-1.0 X 10^3 Eosinophils # (Auto) 0.1 0.0-0.3 10^3/uL Basophils # (Auto) 0.0 0.0-0.1 10^3/uL Immature Granulocyte # (Auto) 0.0 0.0-0.1 10^3/uL Sodium Level 141 135-145 MMOL/L Potassium Level 3.8 3.6-5.0 MMOL/L Chloride Level 106 98-107 MMOL/L Carbon Dioxide Level 22 21-32 MMOL/L Anion Gap 13 5-14 MMOL/L Blood Urea Nitrogen 17 7-18 MG/DL Creatinine 0.69 0.60-1.30 MG/DL Estimat Glomerular Filtration Rate 89 BUN/Creatinine Ratio 25 Glucose Level 137 H 70-105 MG/DL Calcium Level 8.2 L 8.5-10.1 MG/DL Corrected Calcium 8.2 L 8.5-10.1 MG/DL Total Bilirubin 0.3 0.1-1.0 MG/DL Aspartate Amino Transf (AST/SGOT) 25 5-34 U/L Alanine Aminotransferase (ALT/SGPT) 17 0-55 U/L Alkaline Phosphatase 163 H 40-136 U/L Troponin I < 0.30 <0.30 NG/ML Total Protein 6.7 6.4-8.2 GM/DL Albumin 4.0 3.2-4.5 GM/DL My Orders Orders - TERESSA LOPEZ DO Comprehensive Metabolic Panel (06/12/21 18:08) Chest Pa/Lat (2 View) (06/12/21 18:08) Methylprednisolone Sod Succ (Solu-Medrol (06/12/21 18:08) Cbc With Automated Diff (06/12/21 18:16) Cbc No Diff (06/12/21 18:57) Cbc With Automated Diff (06/12/21 18:57) Troponin I Fs (06/12/21 18:57) Ketorolac Injection (Toradol Injection) (06/12/21 18:57) Ekg Tracing (06/12/21 19:24) Ekg Tracing (06/12/21 19:25) Furosemide Tablet (Lasix Tablet) (06/12/21 20:00) Medications Given in ED Current Medications Medications Dose Ordered Sig/Norma Route Start Time Stop Time Status Last Admin Dose Admin Furosemide 40 mg ONCE ONCE PO 06/12/21 20:00 06/12/21 20:01 DC 06/12/21 20:27 40 MG Vital Signs/I&O 06/12/21 06/12/21 17:40 20:28 Temp 36.0 Pulse 102 108 Resp 21 20 B/P (MAP) 140/78 (98) 162/84 (98) Pulse Ox 93 95 O2 Delivery Room Air Room Air Capillary Refill : Progress Note : Progress Note Patient with what appears to be a mixed COPD/acute pulmonary edema/failure picture. Patient reports she used to be on diuretics in the past but they took her off of them. Patient is x-ray shows some mild increased edema. Patient with a negative EKG that is unchanged from yesterday with a negative troponin. Patient should follow-up with her primary care provider on Monday when he is in the office. Patient stable and discharged home ECG Initial ECG Impression Date: Jun 12, 2021 Initial ECG Impression Time: 18:51 Initial ECG Rhythm: S.Tach Initial ECG Impression: Nonspecific Changes Comment Patient moving so difficult EKG, EKG was repeated EKG : EKG Time: 19:04 Rhythm: S.Tach ECG Comparisson: Unchanged (from ekg 06/11/212030) ECG Impression: Nonspecific Changes Diagnostic Imaging Comments Date of Exam:06/12/21 CHEST PA/LAT (2 VIEW) INDICATION: Shortness of air. TECHNIQUE: Two view chest 6:36 PM CORRELATION STUDY: 11/03/2019 FINDINGS: Left-sided unipolar AICD, stable. Heart size and mediastinum are unchanged. Vasculature, however, is slightly more prominent from prior. Additionally, slightly more prominent interstitial markings. No consolidating infiltrate. Visualized osseous structures are unremarkable. IMPRESSION: 1. Stable heart size. However, vasculature and interstitial prominence appears increased from prior does suggest component of early fluid overload or failure. Follow-up imaging if clinically warranted. Dictated on workstation # [id number] Departure Impression Primary Impression: Pulmonary edema Qualified Codes: J81.0 - Acute pulmonary edema Additional Impression: COPD (chronic obstructive pulmonary disease) Qualified Codes: J44.1 - Chronic obstructive pulmonary disease with (acute) exacerbation Disposition: HOME, SELF-CARE Condition: Stable Departure-Patient Inst. Referrals: RICHARD HERMAN MD (PCP/Family) Primary Care Physician Patient Instructions: Heart Failure ED, COPD Exacerbation, Adult ED Add. Discharge Instructions: Follow-up with your primary care provider on Monday for recheck of your symptoms Use your inhaler every 4 hours for 24 hours while awake then as needed Take Lasix for the next 3 to 4 days Return to the ER with worsening shortness of breath or any other concerns All discharge instructions reviewed with patient and/or family. Voiced understanding. Scripts Furosemide (Lasix) 20 Mg Tablet 20 MG PO DAILY, #5 TAB Prov: TERESSA LOPEZ DO 06/12/21 TERESSA LOPEZ DO Jun 12, 2021 17:57
[2021-06-12] MEDS ORDERED: methylPREDNISolone 125 MG (Solu-MEDROL) VIAL IV STA (18:08)
[2021-06-12 18:22] LABS: BASOPHILS % (AUTO) 0 % (0-10); EOSINOPHILS # (AUTO) 0.1 10^3/uL (0.0-0.3); EOSINOPHILS % (AUTO) 1 % (0-10); HEMATOCRIT 46 % (35-52); HEMOGLOBIN 15.3 g/dL (11.5-16.0); LYMPHOCYTES # (AUTO) 2.3 X 10^3 (1.0-4.0); LYMPHOCYTES % (AUTO) 26 % (12-44); MEAN CORPUSCULAR HEMOGLOBIN 30 pg (25-34); MEAN CORPUSCULAR HGB CONC 33 g/dL (32-36); MEAN CORPUSCULAR VOLUME 92 fL (80-99); MEAN PLATELET VOLUME 10.3 fL (9.0-12.2); MONOCYTES # (AUTO) 0.3 X 10^3 (0.0-1.0); MONOCYTES % (AUTO) 4 % (0-12); NEUTROPHILS % (AUTO) 68 % (42-75); PLATELET COUNT 230 10^3/uL (130-400); WHITE BLOOD COUNT 8.7 10^3/uL (4.3-11.0)
[2021-06-12 18:39] LABS: BILIRUBIN,TOTAL 0.3 MG/DL (0.1-1.0); CALCIUM 8.2 MG/DL (8.5-10.1); CREATININE SERUM 0.69 MG/DL (0.60-1.30); POTASSIUM 3.8 MMOL/L (3.6-5.0); TOTAL PROTEIN 6.7 GM/DL (6.4-8.2)
[2021-06-12] MEDS ORDERED: KETOROLAC 30 MG/ML VIAL IVP STA (18:57)
--- NOTE | 2021-06-12 19:09 | Diagnostic Imaging Report ---
INDICATION: Shortness of air. TECHNIQUE: Two view chest 6:36 PM CORRELATION STUDY: 11/03/2019 FINDINGS: Left-sided unipolar AICD, stable. Heart size and mediastinum are unchanged. Vasculature, however, is slightly more prominent from prior. Additionally, slightly more prominent interstitial markings. No consolidating infiltrate. Visualized osseous structures are unremarkable. IMPRESSION: 1. Stable heart size. However, vasculature and interstitial prominence appears increased from prior does suggest component of early fluid overload or failure. Follow-up imaging if clinically warranted. Dictated by: Dictated on workstation # [id number]
[2021-06-12] MEDS ORDERED: FUROSEMIDE 20 MG (LASIX) TAB PO ONE (20:00)
[2021-06-12] MEDS ORDERED: FURO-125 PO (20:25)
[2021-06-12 20:28] VITALS: BP 162/84
== END 2021-06-12 20:28 | disposition home or self-care (01) ==
LOC: EDUNIT# 17:39 → ER FS 17:42
DX: J81.1 Chronic pulmonary edema (principal); J44.9 Chronic obstructive pulmonary disease, unspecified; I25.2 Old myocardial infarction; I11.0 Hypertensive heart disease with heart failure; I50.9 Heart failure, unspecified; K21.9 Gastro-esophageal reflux disease without esophagitis; G89.29 Other chronic pain; M54.9 Dorsalgia, unspecified; Z95.810 Presence of automatic (implantable) cardiac defibrillator; Z79.891 Long term (current) use of opiate analgesic; Z79.899 Other long term (current) drug therapy
CPT/HCPCS: 36415; 71046; 80053; 84484; 85025; 93005

== ENCOUNTER 2021-06-15 16:04 | Inpatient (IN) | payer BC ==
[~2021-06-15] VITALS: Ht 170.1 cm; Wt 104.3 kg
[~2021-06-15 16:04] MED LIST changes: +FURO-125 PO
[2021-06-15 16:24] LABS: BASOPHILS # (AUTO) 0.1 10^3/uL (0.0-0.1); BASOPHILS % (AUTO) 1 % (0-10); EOSINOPHILS # (AUTO) 0.2 10^3/uL (0.0-0.3); EOSINOPHILS % (AUTO) 2 % (0-10); HEMATOCRIT 52 % (35-52); HEMOGLOBIN 17.2 g/dL (11.5-16.0); LYMPHOCYTES # (AUTO) 4.2 X 10^3 (1.0-4.0); LYMPHOCYTES % (AUTO) 33 % (12-44); MEAN CORPUSCULAR HEMOGLOBIN 31 pg (25-34); MEAN CORPUSCULAR HGB CONC 33 g/dL (32-36); MEAN CORPUSCULAR VOLUME 93 fL (80-99); MEAN PLATELET VOLUME 10.8 fL (9.0-12.2); MONOCYTES # (AUTO) 0.6 X 10^3 (0.0-1.0); MONOCYTES % (AUTO) 5 % (0-12); NEUTROPHILS # (AUTO) 7.4 X 10^3 (1.8-7.8); NEUTROPHILS % (AUTO) 59 % (42-75); PLATELET COUNT 333 10^3/uL (130-400); WHITE BLOOD COUNT 12.5 10^3/uL (4.3-11.0)
--- NOTE | 2021-06-15 16:26 | ED Chest Pain ---
General Chief Complaint: Chest Pain Stated Complaint: CHEST PAIN Source: patient History of Present Illness Date Seen by Provider: Jun 15, 2021 Time Seen by Provider: 16:07 Initial Comments 51 yo female presents to the ED again with complaint of continued chest pain that has been going on for the last few weeks. She was seen on June 11, June 12 and was not having STEMI or elevation of troponin on either visit despite continued chest pains for several hours every day. She reports the pain will get better occasionally with a breathing treatment but otherwise it is almost always present. She was to follow up in clinic today with pcp but they told her they could not see her until Monday and if she was getting worse to go to ED. Thus she came back again to the ED for continued complaint of chest pressure for the last few weeks. She did show some pulmonary edema on CXR with recent ED visit. She continues to smoke cigarettes despite knowing of her heart disease and pulmonary disease. No nausea/vomiting, no increase in cough from baseline, no swelling in legs. Today her pressure and symptoms have been constan t since about 10 am. Severity/Quality: severe, pressure Location: central Radiation: no radiation Prior CP/Workup: angina, cardiac cath, echocardiography ASA po COMMUNITY LIAISON: No NTG SL COMMUNITY LIAISON: No Associated Symptoms: No abdominal pain, No back pain, No diaphoresis, No edema, No fatigue, No fever/chills, No headache, No heartburn, No nausea/vomiting, No rash; shortness of breath; No swelling/lump in chest, No syncope Allergies and Home Medications Allergies Coded Allergies: aspirin (Verified Allergy, Unknown, 03/07/19) latex (Verified Allergy, Unknown, 09/16/19) Home Medications Acetaminophen 500 Mg Tablet, 1,000 MG PO Q4H PRN for PAIN-MILD (1-4), (Reported) Albuterol Sulfate 1 Puff Puff, 2 PUFF INH Q4H PRN for SHORTNESS OF BREATH, (Reported) Amlodipine Besylate 10 Mg Tablet, 10 MG PO HS, (Reported) LAST FILLED #90 07-19-19 Azithromycin 250 Mg Tablet, 250 MG PO UD TAKE 2 TABLETS ON DAY ONE THEN TAKE 1 TABLET DAILY FOR FOUR MORE DAYS Prescribed by: MAKENNA DÍAZ on 04/15/21 Clonidine HCl 0.1 Mg Tablet, 0.1 MG PO BID, (Reported) LAST FILLED #180 07-19-19 Codeine Phosphate/Guaifenesin 473 Ml Liquid, 10 ML PO TID PRN for COUGH Prescribed by: LAMIN ADLER on 06/11/212243 Diphenhydramine HCl 25 Mg Capsule, 50 MG PO HS PRN for SLEEP, (Reported) Fluoxetine HCl 20 Mg Capsule, 20 MG PO BID, (Reported) Furosemide 20 Mg Tablet, 20 MG PO DAILY Prescribed by: TERESSA LOPEZ on 06/12/212024 Hydrocodone/Acetaminophen 1 Each Tablet, 1 TAB PO Q4H PRN for PAIN-MODERATE (5- 7) Prescribed by: MAKENNA DÍAZ on 04/15/21 235 Lisinopril 20 Mg Tablet, 20 MG PO HS, (Reported) LAST FILLED #90 10-4- Metoprolol Succinate 50 Mg Tab.er.24h, 50 MG PO BID, (Reported) LAST FILLED #180 10-4- Pantoprazole Sodium 40 Mg Tablet.dr, 40 MG PO DAILY, (Reported) Prednisone 20 Mg Tab, 40 MG PO DAILY Prescribed by: MAKENNA DÍAZ on 04/15/212357 Spironolactone 25 Mg Tablet, 25 MG PO DAILY, (Reported) LAST FILLED #90 10-4-19 Sucralfate 1 Gm Tablet, 1 GM PO BID PRN for STOMACH UPSET, (Reported) Patient Home Medication List Home Medication List Reviewed: Yes Review of Systems Review of Systems Constitutional: see HPI EENTM: See HPI Respiratory: See HPI Cardiovascular: See HPI Gastrointestinal: See HPI Genitourinary: No Symptoms Reported Musculoskeletal: no symptoms reported Skin: no symptoms reported Psychiatric/Neurological: Anxiety Past Swzmusv-Omtndp-Fhnsxd Hx Patient Social History Tobacco Use?: Yes Tobacco type used: Cigarettes Smoking Status: Current Everyday Smoker Use of E-Cig and/or Vaping dev: No Substance use?: No Alcohol Use?: No Pt feels they are or have been: No Immunizations Up To Date Tetanus Booster (TDap): Unknown Seasonal Allergies Seasonal Allergies: No Past Medical History Surgery/Hospitalization HX: chest pain, cardiac history Surgeries: Yes (Cardiac defibrillator/pacemaker) Defibrillator, Gallbladder, Hysterectomy, Pacemaker, 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 Respiratory: Yes (Tobaccoism) COPD Cardiac: Yes (pacemaker/defib; a-fib, hx of VT, heart failure) Atrial Fibrillation, Heart Attack, High Cholesterol, Hypertension Neurological: No MANAGER WATER History: Hysterectomy, 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 Genitourinary: No Gastrointestinal: Yes (Esophageal Mass) Gastroesophageal Reflux, Hiatal Hernia Musculoskeletal: Yes (ruptured disks) Chronic Back Pain Endocrine: No HEENT: No Cancer: No Psychosocial: No Integumentary: No Blood Disorders: No Family Medical History Heart Disease Physical Exam Vital Signs Vital Signs - First Documented 06/15/21 16:10 Temp 36.6 Pulse 107 Resp 20 B/P (MAP) 115/73 (87) Pulse Ox 95 O2 Delivery Room Air Capillary Refill : Height, Weight, BMI Height: 5'7.00" Weight: 200lbs. 0oz. 90.075977an; 37.00 BMI Method:Stated General Appearance: Anxious, Obese HEENT: PERRL/EOMI, Pharynx Normal Neck: Full Range of Motion, Normal Inspection, Non Tender, Supple Respiratory: Chest Non Tender, No Accessory Muscle Use, No Respiratory Distress, Decreased Breath Sounds Cardiovascular: Regular Rate, Rhythm, Normal Peripheral Pulses Gastrointestinal: Normal Bowel Sounds, No Pulsatile Mass, Non Tender, Soft Rectal: Deferred Extremity: Normal Capillary Refill, Normal Inspection, No Pedal Edema Neurologic/Psychiatric: Alert, Oriented x3 Skin: Normal Color, Warm/Dry Progress/Results/Core Measures Results/Orders Lab Results Laboratory Tests Test 06/15/21 16:15 Range/Units White Blood Count 12.5 H 4.3-11.0 10^3/uL Red Blood Count 5.60 H 3.80-5.11 10^6/uL Hemoglobin 17.2 H 11.5-16.0 g/dL Hematocrit 52 35-52 % Mean Corpuscular Volume 93 80-99 fL Mean Corpuscular Hemoglobin 31 25-34 pg Mean Corpuscular Hemoglobin Concent 33 32-36 g/dL Red Cell Distribution Width 14.5 10.0-14.5 % Platelet Count 333 130-400 10^3/uL Mean Platelet Volume 10.8 9.0-12.2 fL Immature Granulocyte % (Auto) 1 % Neutrophils (%) (Auto) 59 42-75 % Lymphocytes (%) (Auto) 33 12-44 % Monocytes (%) (Auto) 5 0-12 % Eosinophils (%) (Auto) 2 0-10 % Basophils (%) (Auto) 1 0-10 % Neutrophils # (Auto) 7.4 1.8-7.8 X 10^3 Lymphocytes # (Auto) 4.2 H 1.0-4.0 X 10^3 Monocytes # (Auto) 0.6 0.0-1.0 X 10^3 Eosinophils # (Auto) 0.2 0.0-0.3 10^3/uL Basophils # (Auto) 0.1 0.0-0.1 10^3/uL Immature Granulocyte # (Auto) 0.1 0.0-0.1 10^3/uL Neutrophils % (Manual) 61 % Lymphocytes % (Manual) 15 % Monocytes % (Manual) 5 % Eosinophils % (Manual) 1 % Atypical Lymphocytes 18 % Platelet Estimate Poikilocytosis SLIGHT Anisocytosis SLIGHT Microcytosis SLIGHT Stomatocytes SLIGHT Crenated Cell SLIGHT Prothrombin Time 12.6 12.2-14.7 SEC INR Comment 0.9 0.8-1.4 Activated Partial Thromboplast Time 25 24-35 SEC Sodium Level 139 135-145 MMOL/L Potassium Level 4.0 3.6-5.0 MMOL/L Chloride Level 98 98-107 MMOL/L Carbon Dioxide Level 24 21-32 MMOL/L Anion Gap 17 H 5-14 MMOL/L Blood Urea Nitrogen 35 H 7-18 MG/DL Creatinine 1.60 H 0.60-1.30 MG/DL Estimat Glomerular Filtration Rate 34 BUN/Creatinine Ratio 22 Glucose Level 96 70-105 MG/DL Calcium Level 9.5 8.5-10.1 MG/DL Corrected Calcium 9.1 8.5-10.1 MG/DL Magnesium Level 1.8 1.6-2.4 MG/DL Total Bilirubin 0.4 0.1-1.0 MG/DL Aspartate Amino Transf (AST/SGOT) 33 5-34 U/L Alanine Aminotransferase (ALT/SGPT) 22 0-55 U/L Alkaline Phosphatase 182 H 40-136 U/L Troponin I 0.64 *H <0.30 NG/ML Pro-B-Type Natriuretic Peptide 1008.0 H <75.0 PG/ML Total Protein 8.1 6.4-8.2 GM/DL Albumin 4.5 3.2-4.5 GM/DL Lipase 14 8-78 U/L My Orders Orders - LAMIN ADLER MD Cbc With Automated Diff (06/15/21 16:12) Magnesium (06/15/21 16:12) Ekg Tracing (06/15/21 16:12) Comprehensive Metabolic Panel (06/15/21 16:12) Protime With Inr (06/15/21 16:12) Partial Thromboplastin Time (06/15/21 16:12) O2 (06/15/21 16:12) Monitor-Rhythm Ecg Trace Only (06/15/21 16:12) Ed Iv/Invasive Line Start (06/15/21 16:12) Lipase (06/15/21 16:12) Chest Pa/Lat (2 View) (06/15/21 16:12) Probnp Fs (06/15/21 16:12) Troponin I Fs (06/15/21 16:12) Manual Differential (06/15/21 16:15) Ketorolac Injection (Toradol Injection) (06/15/21 16:36) Dexamethasone Injection (Decadron Inje (06/15/21 16:36) Nitroglycerin Ointment (Nitrobid Ointme (06/15/21 17:02) Fentanyl Inj (Sublimaze Injection) (06/15/21 17:02) Enoxaparin Injection (Lovenox Injection) (06/15/21 17:02) Clopidogrel Tablet (Plavix Tablet) (06/15/21 17:17) Vital Signs/I&O 06/15/21 16:10 Temp 36.6 Pulse 107 Resp 20 B/P (MAP) 115/73 (87) Pulse Ox 95 O2 Delivery Room Air Progress Progress Note #1: Progress Note Will again check labs and CXR with ECG to see if there is any change from recent testing. Will not give aspirin since pt reports allergy. Differential diagnosis includes COPD exacerbation, acute coronary syndrome, myocardial infarction, CHF, pneumonia, GERD with esophageal spasm, anxiety Progress Note #2: Progress Note CXR clear of pulmonary edema or infiltrate today. ECG stable from prior tracings but now has some lateral T wave flattening compared to prior tracings. Try Torad ol and steroid as she had June 12. Progress Note #3: Progress Note CBC with mild elevation of WBC count to 12.5. Coags normal. Chemistry with acute mild renal insufficiency since she has been on Furosemide recently. Nitroglycerin 1 inch to help with pressure. Fentanyl for pain. Repeat ECG since she reports pain worse. Troponin slightly elevated to 0.69 whereas it had been negative and <0.3 on all prior visits this weekend. Repeat ECG with sinus rhythm 98 beats per minute. T waves improved from initial tracing. Call to [facility] since she follows with Dr. Rodriguez for Cardiology. [place] at the transfer center advised they do not have any beds available for cardiac transfer for Non Stemi. Pt advised and she states she is ok with going to [facility]. 1710 d/w Dr. Naylor from cardiology and he advised to give aspirin, Plavix 300 mg, lovenox and transfer. I told him the patient reports an allergy to aspirin so it had not been given. She states it made her heart stop and gave her a heart attack. 171 d/w Dr. Dumont for [facility] and she accepted pt to go to cardiac step down bed with cardiology consult. Will give Fentanyl for pain since pt reports Morphine does not help her pain and just makes her itch and nauseated. Advised Nursing supervisor hospitality [facility] of need for bed placement. 1730 pt reports improved pain and symptoms after treatment. BP improved with treatment as well. Pt now on phone yelling at her to get back to the ED with her phone salon manager and personal effects she wanted to take with her as the ambulance is taking her emergently to [place]. She seemed to be more interested in talking to him on the phone and making sure she had personal belongings and phone salon manager to take to [place], than about having pain or being told that she had possible new heart damage. Initial ECG Impression Date: Jun 15, 2021 Initial ECG Impression Time: 16:12 Initial ECG Rate: 101 Initial ECG Rhythm: S.Tach Initial ECG Comparisson: Changed (lateral T wave flattening compared to prior tracings) Comment Sinus tachycardia with a heart rate of 101 bpm. Biatrial enlargement. CA interval 177 ms. Some T wave flattening in the lateral leads. Prolonged QT interval of 396 ms and QTc interval [address] elevation. Appears similar to prior tracings in the system other than the T wave flattening in the lateral leads appears to be new EKG : EKG Time: 17:08 Rate: 98 Rhythm: Normal Sinus ECG Comparisson: Changed (improved T waves in lateral leads) Comment Sinus rhythm with a heart rate of 98 bpm. CA interval 168 ms. Findings for LVH. No acute ST elevation. Flattened T waves were seen on prior tracing resolved now. QT interval 356 ms with a QTc interval 455 ms. Diagnostic Imaging Diagonstic Imaging: Xray Plain Films/CT/US/NM/MRI: chest Comments NAME: JENNIFER DICKERSON [facility] REC#: [id number] PT STATUS: REG ER : 1970 PHYSICIAN: LAMIN ADLER MD ADMIT DATE: 06/15/21/ER FS Draft Date of Exam:06/15/21 CHEST PA/LAT (2 VIEW) EXAMINATION: Chest 2 views. HISTORY: Chest pain and shortness of breath. COMPARISON: 06/12/2021 FINDINGS: The lungs are clear without edema or pneumonia. No pleural effusion or pneumothorax. Heart size is normal. Left subclavian pacemaker is present. IMPRESSION: 1. Clear lungs. Dictated on workstation # [id number] Dict: 06/15/21 1626 Trans: 06/15/21 1627 [facility] [id number] Interpreted by: CAMILLA JERNIGAN MD Electronically signed by: Reviewed: Reviewed by Me Departure Communication (Admissions) Time/Spoke to Admitting Phy: 17:14 Dr. Dumont advised of patient and Dr. Naylor aware of patient for Consult Time/Spoke to Consulting Phy: 17:10 d/w Dr. Naylor and he recommends aspirin, plavix 300 mg, and lovenox and transfer. I informed him that pt states she is allergic to aspirin and it made her heart stop and caused heart attack previously. Impression Primary Impression: Non-ST elevated myocardial infarction (non-STEMI) Additional Impressions: Chest pressure Acute renal insufficiency Tobacco abuse Disposition: 30 STILL A PATIENT Condition: Critical Admissions Decision to Admit Reason: Admit from ER (General) Decision to Admit/Date: Jun 15, 2021 Time/Decision to Admit Time: 17:14 Departure-Patient Inst. Referrals: RICHARD HERMAN MD (PCP/Family) Primary Care Physician LAMIN ADLER MD Jun 15, 2021 16:26
[2021-06-15 16:36] LABS: INR 0.9 (0.8-1.4); PROTHROMBIN TIME PATIENT 12.6 SEC (12.2-14.7)
[2021-06-15] MEDS ORDERED: KETOROLAC 60 MG/2 ML VIAL IM STA (16:36)
[2021-06-15 16:49] LABS: ATYPICAL LYMPHOCYTES 18 %; EOSINOPHILS % (MANUAL) 1 %; LYMPHOCYTES % (MANUAL) 15 %; MONOCYTES % (MANUAL) 5 %; NEUTROPHILS % (MANUAL) 61 %
[2021-06-15 16:50] LABS: ANISOCYTOSIS SLIGHT; MICROCYTOSIS SLIGHT; POIKILOCYTOSIS SLIGHT; STOMATOCYTES SLIGHT
[2021-06-15 16:51] LABS: CRENATED RBC SLIGHT
[2021-06-15 16:55] LABS: ALBUMIN 4.5 GM/DL (3.2-4.5); BILIRUBIN,TOTAL 0.4 MG/DL (0.1-1.0); CALCIUM 9.5 MG/DL (8.5-10.1); CREATININE SERUM 1.6 MG/DL (0.60-1.30); MAGNESIUM 1.8 MG/DL (1.6-2.4); TOTAL PROTEIN 8.1 GM/DL (6.4-8.2)
[2021-06-15] MEDS ORDERED: NITROGLYCERIN 2% OINT 1 GM UNIT DOSE PACKET TOP STA (17:02)
[2021-06-15] MEDS ORDERED: fentaNYL INJ 100 MCG/2 ML AMP IVP STA (17:02)
[2021-06-15] MEDS ORDERED: ENOXAPARIN 100 MG/1 ML (LOVENOX) SYR SC STA (17:02)
[2021-06-15] MEDS ORDERED: CLOPIDOGREL 300 MG (PLAVIX) TABLET PO STA (17:17)
[2021-06-15] MEDS ORDERED: ONDANSETRON 4 MG/2 ML (SDV) Z0FRAN IVP PRN (19:00)
[2021-06-15 20:00] VITALS: BP 92/76
[2021-06-15] MEDS: NS IV 1000 ML 1,000 ML IV SCH ×2 (20:09→23:45)
[2021-06-15] MEDS: fentaNYL INJ 100 MCG/2 ML AMP IVP PRN ×2 (20:09→23:19)
[2021-06-15] MEDS ORDERED: LIDOCAINE 1% INJ 20 ML 20 ML VIAL INJ ONE (21:22)
[2021-06-15] MEDS ORDERED: HEParin (CATH LAB) 1,000 ML IV ONE (21:23)
[2021-06-15] MEDS ORDERED: VERAPAMIL 5 MG/2 ML (CALAN) VIAL IV ONE (21:25)
[2021-06-15] MEDS ORDERED: NS IV 1000 ML 1,000 ML IV ONE (21:25)
[2021-06-15] MEDS ORDERED: NITRO DRIP 25000 MCG/D5W 250 ML IV ONE (21:25)
--- NOTE | 2021-06-15 21:25 | Consultation-Cardiology ---
HPI-Cardiology Cardiology Consultation Date of Consultation 06/15/21 Date of Admission Time Seen by Provider: 21:20 Indication: Non-ST TX HPI 51-year-old lady with history of ICD, history of cardiac catheterization reported to have small vessel disease in 2019 done in [place]. Has been having chest pain on and off for the past few months, she was seen in the emergency room on June 11 and June 12, work-up was negative at that time. Patient continued to have recurrent chest pain for several hours every day, reporting that she did not have any relieving factor, persistent pain with laying down or standing up or moving. Went to her primary care physician office and then she was sent to the emergency room. In the ER she was noted to have mild elevation in troponin. Continue to have chest pain feeling like of pressure on her chest persistent. Her second troponin became more elevated. On my evaluation, she was having active chest pain, no shortness of breath. Laying down comfortably in bed. Saying that she is feeling an elephant on her chest Home Medications & Allergies Allergies: Coded Allergies: aspirin (Verified Allergy, Unknown, 03/07/19) latex (Verified Allergy, Unknown, 09/16/19) Home Medication List Reviewed: Yes HMD-Taqwqi-Qbpiec Hx Patient Social History Smoking Status: Current Everyday Smoker Type Used: Cigarettes 2nd Hand Smoke Exposure: Yes Recent Hopitalizations: No Have you traveled recently?: No Alcohol Use?: No Immunizations Up To Date Tetanus Booster (TDap): Unknown Date of Pneumonia Vaccine: Aug 14, 2016 Date of Influenza Vaccine: Jul 15, 2019 Past Medical History Discussed below Family Medical History Significant Family History: Heart Disease Family Medical Hx Grandmother has history of arrhythmia Review of Systems-General Review of Systems Constitutional: see HPI EENTM: see HPI, no symptoms reported Respiratory: see HPI; No cough; dyspnea on exertion; No hemoptysis, No orthopnea, No phlegm, No short of breath, No stridor, No wheezing, No other Cardiovascular: see HPI, chest pain; No edema, No Hx of Intervention, No palpitations, No syncope, No vascular heart diseas, No other Gastrointestinal: no symptoms reported, see HPI Genitourinary: no symptoms reported, see HPI Musculoskeletal: no symptoms reported, see HPI Skin: no symptoms reported, see HPI Psychiatric/Neurological: See HPI, Anxiety Reviewed Test Results Reviewed Test Results Lab Laboratory Tests Test 06/15/21 16:15 06/15/21 19:54 Range/Units White Blood Count 12.5 H 4.3-11.0 10^3/uL Red Blood Count 5.60 H 3.80-5.11 10^6/uL Hemoglobin 17.2 H 11.5-16.0 g/dL Hematocrit 52 35-52 % Mean Corpuscular Volume 93 80-99 fL Mean Corpuscular Hemoglobin 31 25-34 pg Mean Corpuscular Hemoglobin Concent 33 32-36 g/dL Red Cell Distribution Width 14.5 10.0-14.5 % Platelet Count 333 130-400 10^3/uL Mean Platelet Volume 10.8 9.0-12.2 fL Immature Granulocyte % (Auto) 1 % Neutrophils (%) (Auto) 59 42-75 % Lymphocytes (%) (Auto) 33 12-44 % Monocytes (%) (Auto) 5 0-12 % Eosinophils (%) (Auto) 2 0-10 % Basophils (%) (Auto) 1 0-10 % Neutrophils # (Auto) 7.4 1.8-7.8 X 10^3 Lymphocytes # (Auto) 4.2 H 1.0-4.0 X 10^3 Monocytes # (Auto) 0.6 0.0-1.0 X 10^3 Eosinophils # (Auto) 0.2 0.0-0.3 10^3/uL Basophils # (Auto) 0.1 0.0-0.1 10^3/uL Immature Granulocyte # (Auto) 0.1 0.0-0.1 10^3/uL Neutrophils % (Manual) 61 % Lymphocytes % (Manual) 15 % Monocytes % (Manual) 5 % Eosinophils % (Manual) 1 % Atypical Lymphocytes 18 % Platelet Estimate Poikilocytosis SLIGHT Anisocytosis SLIGHT Microcytosis SLIGHT Stomatocytes SLIGHT Crenated Cell SLIGHT Prothrombin Time 12.6 12.2-14.7 SEC INR Comment 0.9 0.8-1.4 Activated Partial Thromboplast Time 25 24-35 SEC Sodium Level 139 135-145 MMOL/L Potassium Level 4.0 3.6-5.0 MMOL/L Chloride Level 98 98-107 MMOL/L Carbon Dioxide Level 24 21-32 MMOL/L Anion Gap 17 H 5-14 MMOL/L Blood Urea Nitrogen 35 H 7-18 MG/DL Creatinine 1.60 H 0.60-1.30 MG/DL Estimat Glomerular Filtration Rate 34 BUN/Creatinine Ratio 22 Glucose Level 96 70-105 MG/DL Calcium Level 9.5 8.5-10.1 MG/DL Corrected Calcium 9.1 8.5-10.1 MG/DL Magnesium Level 1.8 1.6-2.4 MG/DL Total Bilirubin 0.4 0.1-1.0 MG/DL Aspartate Amino Transf (AST/SGOT) 33 5-34 U/L Alanine Aminotransferase (ALT/SGPT) 22 0-55 U/L Alkaline Phosphatase 182 H 40-136 U/L Troponin I 0.64 *H 1.414 *H <0.028 NG/ML Pro-B-Type Natriuretic Peptide 1008.0 H <75.0 PG/ML Total Protein 8.1 6.4-8.2 GM/DL Albumin 4.5 3.2-4.5 GM/DL Lipase 14 8-78 U/L Myoglobin 1268.8 H 10.0-92.0 NG/ML Physical Exam Physical Exam Vital Signs Vital Signs - First Documented 06/15/21 06/15/21 16:10 20:00 Temp 36.6 Pulse 107 Resp 20 B/P (MAP) 115/73 (87) Pulse Ox 95 O2 Delivery Room Air O2 Flow Rate 2.00 Capillary Refill : Less Than 3 Seconds Height, Weight, BMI Height: 5'7.00" Weight: 200lbs. 0oz. 90.660599gm; 36.04 BMI Method:Stated General Appearance: Anxious, Obese Eyes: Bilateral Eye Normal Inspection, Bilateral Eye PERRL, Bilateral Eye EOMI HEENT: PERRL/EOMI, Pharynx Normal Neck: Full Range of Motion, Normal Inspection, Non Tender, Supple Respiratory: Chest Non Tender, No Accessory Muscle Use, No Respiratory Distress, Decreased Breath Sounds Cardiovascular: Regular Rate, Rhythm, Normal Peripheral Pulses Gastrointestinal: Normal Bowel Sounds, No Pulsatile Mass, Non Tender, Soft Rectal: Deferred Back: Normal Inspection, No CVA Tenderness, No Vertebral Tenderness Extremity: Normal Capillary Refill, Normal Inspection, No Pedal Edema Neurologic/Psychiatric: Alert, Oriented x3 Skin: Normal Color, Warm/Dry Lymphatic: No Adenopathy A/P-Cardiology Admission Diagnosis Non-ST elevation myocardial infarction Hypertension Hyperlipidemia ICD Assessment/Plan Non-ST elevation myocardial infarction, initial EKG showed some biphasic T waves in the anterior leads, currently her EKG is back to normal, had significant elevation in troponin. Having active chest pain feeling an elephant on her chest, I will proceed with emergency cardiac catheterization possible PTCA Hypertension, restart home medication monitor blood pressure Hyperlipidemia Tobaccoism History of ICD implant, managed by Dr. Conn Family history of arrhythmia Clinical Quality Measures AMI/AHF: ASA po Prior to arrival: DEWEY Cyr MD Jun 15, 2021 21:25
--- NOTE | 2021-06-15 21:26 | Conscious Sedation/ASA ---
Conscious Sedation Pre-Proced Time 21:25 ASA Score 3 For ASA 3 and 4: Consider anesthesia and medical clearance. Also, for patients with a history of failed moderate sedation consider anesthesia. Airway Lungs Heart ASA score ASA 1: a normal healthy patient ASA 2: a patient with a mild systemic disease (mid diabetes, controlled hypertension, obesity x ASA 3: a patient with a severe systemic disease that limits activity (angina, COPD, prior Myocardial infarction) ASA 4: a patient with an incapacitating disease that is a constant threat to life (CHF, renal failure) ASA 5: a moribund patient not expected to survive 24 hrs. (ruptured aneurysm) ASA 6: a declared brain- patient whose organs are being harvested. For emergent operations, add the letter E after the classification Mallampati Classification Grade 3 Sedation Plan Analgesia, Amnesia, Plan communicated to team members, Discussed options with patient/fam, Discussed risks with patient/fam The patient is an appropriate candidate to undergo the planned procedure, sedation, and anesthesia. The patient immediately re-assessed prior to indication. DEWEY CASTILLO MD Jun 15, 2021 21:26
[2021-06-15] MEDS ORDERED: fentaNYL INJ 100 MCG/2 ML AMP ONE (21:52)
[2021-06-15] MEDS ORDERED: MIDAZOLAM 5 MG/5 ML (VERSED) VIAL ONE (21:53)
[2021-06-15] MEDS ORDERED: HEParin 1000 UNIT/ML (10ML VIAL) FOR BOLUS ONE (21:53)
[2021-06-15] MEDS ORDERED: CLOPIDOGREL 300 MG (PLAVIX) TABLET PO ONE (22:16)
[2021-06-15] MEDS ORDERED: ASPIRIN 325 MG (5 GR) TABLET ONE (22:16)
--- NOTE | 2021-06-15 22:25 | Cardiac Cath Report ---
Cardiac Cath Report Physician (s)/Fern Picker (s) Physician DEWEY CASTILLO MD Pre-Procedure Diagnosis Pre-Procedure Diagnosis: Acute myocardial infarction Post-Procedure Note Procedure Start Date: Jun 15, 2021 Name of Procedure: Left heart catheterization Left ventriculogram Emergency stenting of the right coronary artery Findings/Procedure Note PROCEDURE NOTE: 51-year-old lady with history of mild coronary artery disease per cardiac catheterization done in [place] 2 years ago, has been coming to the emergency room for recurrent chest pain for the past 3 days, reporting chest pain for the past few months. Cardiac enzymes has been negative. Today the pain was worse, came into the emergency room and noted to have elevated troponin, second troponin was more significantly elevated and she was having significant chest pain. We decided to proceed with emergency cardiac catheterization possible PTCA. After explaining the procedure to the patient, all pros and cons were explained, all questions were answered. The patient signed the consent and then she was placed on the cardiac catheterization laboratory. Groin was prepped SL fashion local anesthesia was used. Sheath placed in the right femoral artery, Ami right and left catheter were advanced to the right and left coronary system, angiogram was done, Ami right was advanced to the left ventricular cavity and left ventriculogram was done. Then I decided to proceed with percutaneous intervention. Patient received 100 mg of Lovenox at 5 PM. I gave her 5000 units of heparin, FIR guide was advanced to the right coronary artery and BMW wire was advanced and parked distally, patient has severe stenosis in the distal right coronary artery/subtotal occlusion, predilatation with 3 x 15 balloon showed the thrombus in the distal right coronary artery. I proceeded with stenting using Letty 3 x 23 mm balloon, expanded to 3.2 mm. Then proximal to the stent there was an area that appeared initially borderline, appeared to be more significant after the stent deployment I decided to cover it with a second stent using Letty 3.5 x 12 mm overlapping with the previous stent expanded to 3.7 mm with excellent results. At the end of the procedure the sheath was removed. Closure device was deployed FINDINGS: Hemodynamics LV 121/33, end-diastolic pressure of 33 Aorta 109/71 mean of 88 ANATOMY: Left Main has mild disease nonobstructive disease Left Anterior Descending is slightly tortuous with mild disease nonobstructive disease Left Circumflex has mild disease nonobstructive disease Right Coronary Artery is dominant artery with moderate stenosis noted diffusely, 2 area of severe stenosis distally, prior to the bifurcation there is subtotal occlusion with a thrombus. Successful balloon angioplasty and deployment of 2 overlapping stent distally Letty 3 x 23 mm and proximally Letty 3.5 x 12 mm, expanded proximally to 3.7 and distally 3.2 mm. Excellent results. LV Gram was done with a small amount of contrast showing normal left ventricular size with normal contractility estimate ejection fraction 60% CONCLUSION: 1. Non-ST elevation myocardial infarction with severe stenosis/subtotal occlusion in the distal right coronary artery successful stenting using 2 overlapping stent distally Letty 3 x 23 mm and proximal to it 3.5 x 12 mm overlapping expanded proximally to 3.7 and distally to 3.2 mm with excellent results. Moderate disease in the mid right coronary artery 2. Mild to moderate disease in the left main, LAD and circumflex artery 3. Left ventricular hypertrophy with normal systolic function ejection fraction 60%, elevated left ventricular end-diastolic pressure due to diastolic dysfunction DISCUSSION AND RECOMMENDATION: Patient has significant respiratory variation of her pressure noted during the procedure, she is loaded with aspirin and Plavix, initially reported allergy to aspirin and on further investigation it appeared that she had a seroma at the pacemaker site and she was told to hold aspirin at that point, no rash or purpura or hives were reported. I will continue with aspirin and Plavix at this time, evaluate lipid profile, educated on smoking cessation Anesthesia Type: Conscious Sedation Estimated blood loss (mL): 20 ml Contrast Amount: 80 ml Total Radiation Dose: 1099 mGy Post-Procedure Diagnosis Post-operative diagnosis: Non-ST elevation myocardial infarction Coronary artery disease Hypertension Hyperlipidemia DEWEY CASTILLO MD Jun 15, 2021 22:25
[2021-06-15 22:30] VITALS: BP 86/73
[2021-06-15] MEDS ORDERED: PATIENT MAY USE OWN MEDS, ALL PO SCH (22:30)
[2021-06-15 22:45] VITALS: BP 93/76
[2021-06-15 23:00] VITALS: BP 94/50
[2021-06-15 23:15] VITALS: BP 107/70
[2021-06-15 23:30] VITALS: BP_SYST 115; BP_SYST 97; BP_DIAS 76; BP_DIAS 84
[2021-06-15] MEDS: PANTOPRAZOLE 40 MG (PROTONIX) TAB PO SCH (23:45)
[2021-06-15] MEDS ORDERED: RT-ALBUTEROL SULF 2.5 MG/3 ML PRE-MIX VIAL INH PRN (23:45)
[2021-06-16] VITALS (9 sets, daily range): BP systolic 78–124; BP diastolic 60–79
[2021-06-16] MEDS: fentaNYL INJ 100 MCG/2 ML AMP IVP PRN ×4 (01:43→04:52)
[2021-06-16 05:54] LABS: HEMATOCRIT 44 % (35-52); HEMOGLOBIN 13.8 g/dL (11.5-16.0); MEAN CORPUSCULAR HEMOGLOBIN 30 pg (25-34); MEAN CORPUSCULAR HGB CONC 32 g/dL (32-36); MEAN CORPUSCULAR VOLUME 96 fL (80-99); PLATELET COUNT 265 10^3/uL (130-400); WHITE BLOOD COUNT 8.4 10^3/uL (4.3-11.0)
[2021-06-16 06:04] LABS: POTASSIUM 3.5 MMOL/L (3.6-5.0)
[2021-06-16 06:05] LABS: ALBUMIN 3.8 GM/DL (3.2-4.5)
[2021-06-16 06:06] LABS: CALCIUM 9.1 MG/DL (8.5-10.1)
[2021-06-16 06:07] LABS: TOTAL PROTEIN 6.7 GM/DL (6.4-8.2)
[2021-06-16 06:09] LABS: BILIRUBIN,TOTAL 0.3 MG/DL (0.1-1.0)
[2021-06-16 06:11] LABS: CREATININE SERUM 1.71 MG/DL (0.60-1.30)
[2021-06-16] MEDS ORDERED: ACETAMINOPHEN 325 MG TABLET ONE (08:58)
[2021-06-16] MEDS ORDERED: CLOPIDOGREL 75 MG (PLAVIX) TABLET PO SCH (09:00)
[2021-06-16] MEDS ORDERED: ASPIRIN E.C. 81 MG (ECOTRIN) TAB PO SCH (09:00)
[2021-06-16] MEDS: PANTOPRAZOLE 40 MG (PROTONIX) TAB PO SCH (09:00)
[2021-06-16] MEDS: ACETAMINOPHEN 325 MG TABLET PO PRN ×2 (09:01→14:30)
[2021-06-16] MEDS ORDERED: RT-ALBUINH INH (09:38)
[2021-06-16] MEDS ORDERED: GUAI-813 PO (09:38)
[2021-06-16] MEDS ORDERED: GABA300C PO (09:38)
[2021-06-16] MEDS ORDERED: CYCL10TA9 PO (09:38)
[2021-06-16] MEDS ORDERED: FURO20TA4 PO (09:38)
[2021-06-16] MEDS ORDERED: NAPR220T66 PO (09:39)
[2021-06-16] MEDS ORDERED: ALBU2.5V4 NEB (09:39)
--- NOTE | 2021-06-16 09:47 | History & Physical ---
YAYA WALKER 06/16/21 0947: HPI History of Present Illness: 51y/o F with Hx of HTN, HLD, a-fib with ICD, and COPD admitted due to CP. States that she had been having sharp CP intermittently for the past several weeks and was seen by the ED on 06/11 and 06/12 with negative cardiac workups. States that she saw her PCP and was told to come to the ER if her Sx's worsened. Then, starting yesterday at about 10am she developed a constant centralized chest pressure which worsened with exertion. Reports associated SOB and sweating. Pt had a heart cath done in 2018 in [place] which showed small vessel dz. Source: patient Date seen by provider: Jun 16, 2021 Time Seen by Provider: 09:30 Attending Physician Venessa Rainey MD PCP John Wilde MD Consult Date of Admission Jun 15, 2021 at 18:30 Home Medications Home Medications Reviewed patient Home Medication Reconciliation performed by pharmacy medication reconciliations design technician and/or nursing. Patients Allergies have been reviewed. Allergies Coded Allergies: aspirin (Verified Allergy, Unknown, 03/07/19) latex (Verified Allergy, Unknown, 09/16/19) [id number] Hx Patient Social History Smoking Status: Current Everyday Smoker (1/2ppd) 2nd Hand Smoke Exposure: Yes Recent Hopitalizations: No Alcohol Use?: No Tobacco type used: Cigarettes Have you traveled recently?: No Immunizations Up To Date Tetanus Booster (TDap): Unknown Date of Pneumonia Vaccine: Aug 14, 2016 Date of Influenza Vaccine: Jul 15, 2019 Past Medical History PMHx: HTN HLD Heart disease- pacemaker and debrillator in place SurgHx: Pacemaker/defibrillator placement Hysterectomy Cholecystectomy Esophageal biopsy/EGD- Dr. Reeder Jul 2019 Family Medical History Significant Family History: Heart Disease (grandma with afib) Review of Systems ([facility]) Constitutional: No chills; diaphoresis; No fever EENTM: No blurred vision, No double vision, No eye pain, No epistaxis Respiratory: cough (chronic), short of breath Cardiovascular: chest pain; No syncope Gastrointestinal: No abdominal pain, No nausea, No vomiting Genitourinary: No incontinence Musculoskeletal: No joint swelling, No muscle twitching Skin: No change in color, No dryness Psychiatric/Neurological: Denies Headache, Denies Numbness Reviewed Test Results Reviewed Test Results Lab WBC 8.4 Hgb 13.9 Na 136 K 3.5 Cl 102 CO2 20 BUN 37 Cr 1.71 Troponin 1.814 Lipids elevated PT/INR nml Radiology CXR: no acute findings Physical Exam-([facility]) Physical Exam Vital Signs VS - Last 72 Hours, by Label 06/15/21 06/15/21 06/15/21 06/15/21 16:10 19:00 20:00 20:00 Temp 36.6 36.0 Pulse 107 84 84 Resp 20 16 B/P (MAP) 115/73 (87) 92/76 (81) Pulse Ox 95 90 O2 Delivery Room Air Nasal Cannula Nasal Cannula O2 Flow Rate 2.00 2.00 06/15/21 06/15/21 06/15/21 06/15/21 21:52 22:30 22:45 23:00 Pulse 90 88 Resp 16 22 B/P (MAP) 86/73 (77) 93/76 (82) 94/50 (65) Pulse Ox 95 94 O2 Delivery Nasal Cannula Nasal Cannula Nasal Cannula O2 Flow Rate 2.00 2.00 2.00 06/15/21 06/15/21 06/15/21 06/15/21 23:12 23:15 23:30 23:30 Temp 36.0 Pulse 87 85 84 Resp 15 24 B/P (MAP) 107/70 (82) 115/84 (94) Pulse Ox 93 92 94 O2 Delivery Nasal Cannula Nasal Cannula Nasal Cannula O2 Flow Rate 2.00 2.00 2.00 FiO2 24 06/16/21 06/16/21 06/16/21 06/16/21 00:00 00:30 01:00 01:00 Pulse 79 79 77 77 Resp 12 11 11 B/P (MAP) 87/76 (80) 87/76 (80) 78/60 (66) Pulse Ox 91 91 93 O2 Delivery Nasal Cannula Nasal Cannula Nasal Cannula O2 Flow Rate 3.00 3.00 3.00 06/16/21 06/16/21 06/16/21 06/16/21 01:30 02:00 03:00 04:00 Pulse 79 90 95 84 Resp 9 17 18 12 B/P (MAP) 86/75 (79) 117/78 (91) 124/79 (94) 98/76 (83) Pulse Ox 93 97 93 95 O2 Delivery Nasal Cannula Nasal Cannula Nasal Cannula Nasal Cannula O2 Flow Rate 3.00 3.00 3.00 3.00 06/16/21 06/16/21 06/16/21 06/16/21 04:00 04:37 06:45 07:42 Temp 35.3 Pulse 75 81 Resp 16 B/P (MAP) 81/63 (69) Pulse Ox 96 94 O2 Delivery Nasal Cannula Nasal Cannula O2 Flow Rate 2.00 4.00 3.00 Capillary Refill : Less Than 3 Seconds General Appearance: WD/WN, no apparent distress, other (nasal canula in place) HEENT: PERRL/EOMI; No scleral icterus (R), No scleral icterus (L) Neck: full range of motion, supple Respiratory: chest non-tender, lungs clear, normal breath sounds, no accessory muscle use Cardiovascular: regular rate, rhythm, no gallop Gastrointestinal: non tender, soft Back: normal inspection Extremities: normal inspection Neurologic/Psychiatric: no motor/sensory deficits, alert, normal mood/affect, oriented x 3 Skin: normal color, warm/dry Assessment/Plan Assessment/Plan Admission Dx NSTEMI (1) NSTEMI (non-ST elevation myocardial infarction) Status: Resolved Assessment & Plan: Cardiology consulted, appreciate recs Cath done showing distal RCA obstruction, stented Continue lovenox Trend troponin 0.64 > 1.414 > 1.814 BNP 1008 Replace K+ Statin started today (2) Acute renal insufficiency Status: Acute Assessment & Plan: Continue IVF (3) Nicotine dependence, cigarettes, uncomplicated Status: Chronic Assessment & Plan: Discussed smoking cessation, pt working on cutting down and quitting (4) Essential hypertension Status: Chronic Assessment & Plan: Resume home meds (5) HLD (hyperlipidemia) Status: Chronic Assessment & Plan: Start statin Clinical Quality Measures AMI/AHF: ASA po Prior to arrival: No VENESSA RAINEY MD 06/16/21 1619: Home Medications Allergies Coded Allergies: aspirin (Verified Allergy, Unknown, 03/07/19) latex (Verified Allergy, Unknown, 09/16/19) [id number] Hx Past Medical History HTN CAD Review of Systems ([facility]) Constitutional: No chills; diaphoresis; No fever EENTM: no symptoms reported Respiratory: cough (chronic); No dyspnea on exertion; short of breath Cardiovascular: chest pain (Now resolved after cath); No edema, No palpitations Gastrointestinal: no symptoms reported Genitourinary: no symptoms reported; No dysuria, No frequency, No hematuria Musculoskeletal: no symptoms reported Skin: no symptoms reported Psychiatric/Neurological: No Symptoms Reported Reviewed Test Results Reviewed Test Results Lab Laboratory Tests Test 06/15/21 19:54 06/16/21 05:30 Range/Units Myoglobin 1268.8 H 10.0-92.0 NG/ML Troponin I 1.414 *H 1.814 *H <0.028 NG/ML White Blood Count 8.4 4.3-11.0 10^3/uL Red Blood Count 4.55 3.80-5.11 10^6/uL Hemoglobin 13.8 11.5-16.0 g/dL Hematocrit 44 35-52 % Mean Corpuscular Volume 96 80-99 fL Mean Corpuscular Hemoglobin 30 25-34 pg Mean Corpuscular Hemoglobin Concent 32 32-36 g/dL Red Cell Distribution Width 14.1 10.0-14.5 % Platelet Count 265 130-400 10^3/uL Mean Platelet Volume 11.0 9.0-12.2 fL Sodium Level 136 135-145 MMOL/L Potassium Level 3.5 L 3.6-5.0 MMOL/L Chloride Level 102 98-107 MMOL/L Carbon Dioxide Level 20 L 21-32 MMOL/L Anion Gap 14 5-14 MMOL/L Blood Urea Nitrogen 37 H 7-18 MG/DL Creatinine 1.71 H 0.60-1.30 MG/DL Estimat Glomerular Filtration Rate 31 BUN/Creatinine Ratio 22 Glucose Level 157 H 70-105 MG/DL Calcium Level 9.1 8.5-10.1 MG/DL Corrected Calcium 9.3 8.5-10.1 MG/DL Total Bilirubin 0.3 0.1-1.0 MG/DL Aspartate Amino Transf (AST/SGOT) 21 5-34 U/L Alanine Aminotransferase (ALT/SGPT) 23 0-55 U/L Alkaline Phosphatase 134 40-136 U/L Total Protein 6.7 6.4-8.2 GM/DL Albumin 3.8 3.2-4.5 GM/DL Triglycerides Level 335 H <150 MG/DL Cholesterol Level 272 H < 200 MG/DL LDL Cholesterol Direct 212 H 1-129 MG/DL VLDL Cholesterol 67 H 5-40 MG/DL HDL Cholesterol 41 40-60 MG/DL Physical Exam-(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 I reviewed and verified all information documented by the medical student and made modifications to such information, when appropriate. I personally performed the physical exam and medical decision making. Venessa Rainey, Jun 16, 2021,16:19 See D/c Summary YAYA WALKER Jun 16, 2021 09:47 VENESSA RAINEY MD Jun 16, 2021 16:19
[2021-06-16] MEDS: NS IV 1000 ML 1,000 ML IV SCH ×3 (12:48→12:56)
[2021-06-16] MEDS ORDERED: ATOR80TA76 PO (12:53)
[2021-06-16] MEDS ORDERED: MTP25TSR PO (12:53)
[2021-06-16] MEDS ORDERED: CLOP75TA28 PO (12:53)
--- NOTE | 2021-06-16 12:54 | Discharge Inst-Post CATH ---
Discharge Inst-CATH/EP Problems Reviewed?: Yes Post Cardiac Cath/EP D/C Inst Follow Up/Plan Appointment with Dr. Chaudhry in 1 to 2 weeks <b>CARDIAC CATH/EP PROCEDURE DISCHARGE INSTRUCTIONS</b> ACTIVITY * Go Home directly and rest. * Limit activity of the leg (or wrist if it was used) for 7 days including aerobics, swimming, jogging, bicycling, etc. * Restrict stair-climbing for 7 days if possible, if not, climb up with your non-cath leg, then bring together on the same step. * Avoid lifting, pushing, pulling or excessive movement of the affected extremity for 7 days. * Customary sexual activity may be resumed after 2 days-use caution not to use a position that strains or causes pain to the affected extremity. * No driving for 24 hours. * NO SMOKING. * Avoid straining for bowel movements for 7 days. * Gentle walking on level ground is allowed. * Returning to work will depend on the type of procedure and the results. Your doctor will discuss this with you. CALL YOUR DOCTOR FOR ANY OF THE FOLLOWING: *If bleeding from the puncture site occurs- Apply gentle pressure to site with clean cloth and call your doctor or EMS. * If a knot or lump forms under the skin, increases in size, or causes pain. * If bruising appears to be worsening or moving further down your leg instead of disappearing. * Temperature above 101 F. CARE OF YOUR GROIN INCISION; * Bruising or purple discoloration of the skin near the puncture site is common. * You may shower only, no bathtub bathing for 5 days. Be careful to avoid slipping as your leg may feel stiff. * If a closure device was used on your femoral artery, please see the attached guide regarding care of the device and your leg. * Leave dressing on FOR 24 hours. CARE OF YOUR WRIST INCISION; * Bruising or purple discoloration of the skin near the puncture site is common. * You may shower. * DO NOT submerge wrist. * Leave dressing on FOR 24 hours. DEWEY CASTILLO MD Jun 16, 2021 12:53
--- NOTE | 2021-06-16 12:58 | Cardiology Progress Note ---
Subjective Date Seen by Provider: Jun 16, 2021 Time Seen by Provider: 12:55 Subjective/Events-last exam Patient continued to complain of chest pain but reported that feeling is better overall, does not feel an elephant of her chest but she is having the chronic chest pain that she has and she is having significant groin pain and back pain and joint pain. Review of Systems General: No Chills, No Night Sweats, No Fatigue, No Malaise, No Appetite, No Other HEENT: No Head Aches, No Visual Changes, No Eye Pain, No Ear Pain, No Dysphasia, No Sinus Congestion, No Post Nasal Drip, No Sore Throat, No Other Pulmonary: No Dyspnea, No Cough, No Pleuritic Chest Pain, No Other Cardiovascular: Chest Pain; No: Palpitations, Orthopnea, Paroxysmal Noc. Dyspnea, Edema, Lt Headedness, Other Objective-Cardiology Exam Last Set of Vital Signs Vital Signs 06/15/21 06/16/21 23:30 11:52 Temp 36.7 Pulse 87 Resp 21 B/P (MAP) 121/74 (90) Pulse Ox 97 O2 Delivery Nasal Cannula O2 Flow Rate 3.00 FiO2 24 I&O Intake and Output 06/16/21 00:00 Intake Total 300 ml Balance 300 ml Intake Oral 300 ml # Voids 1 Daily Weight Change No General: Alert, Oriented X3, Cooperative HEENT: Atraumatic, PERRLA Neck: Supple, No JVD, No Thyromegaly Lungs: Clear to Auscultation, Normal Air Movement Heart: Regular Rate, Normal S1, Normal S2, No Murmurs Abdomen: Normal Bowel Sounds, Soft, No Tenderness, No Hepatosplenomegaly, No Masses Extremities: No Clubbing, No Cyanosis, No Edema, Normal Pulses, No Tenderness/Swelling Skin: No Rashes, No Breakdown, No Significant Lesion Neuro: Normal Gait, Normal Speech, Strength at 5/5 X4 Ext, Normal Tone, Sensation Intact Psych/Mental Status: Mental Status NL, Mood NL Results Lab Laboratory Tests 06/15/21 16:15 06/16/21 05:30 A/P-Cardiology Admission Diagnosis Non-ST elevation myocardial infarction Hypertension Hyperlipidemia ICD Assessment/Plan Non-ST elevation myocardial infarction, status post cardiac catheterization with stenting of the right coronary artery using 2 overlapping stents. Coronary artery disease, cardiac catheterization done on June 15, 2021 and stenting to the distal right coronary artery with deployment of Letty 3 x 23 overlapping by 3.5 x 12 expanded to 3.7 proximally and 3.2 distally with excellent results, had moderate disease in the proximal right coronary artery moderate disease in the mid LAD otherwise mild to moderate disease. EKG returned to baseline Multiple pain complaints including chest pain, groin pain, back pain, joint pain, constantly requesting fentanyl or hydrocodone for her pain. Discussed the long-term management and the pain management need with Dr. Dumont Hypertension, better control at this time, educated about compliance with medication Hyperlipidemia, started with Lipitor 80 mg daily Tobaccoism, educated about smoking cessation History of ICD implant, managed by Dr. Conn Family history of arrhythmia DEWEY CASTILLO MD Jun 16, 2021 12:58
[2021-06-16] MEDS ORDERED: diphenhydrAMINE 25 MG TAB (BENADRYL) PO PRN (15:45)
[2021-06-16] MEDS ORDERED: diphenhydrAMINE 25 MG TAB (BENADRYL) PO ONE (16:10)
--- NOTE | 2021-06-16 16:15 | Discharge Summary ---
Diagnosis/Chief Complaint Date of Admission Jun 15, 2021 at 18:30 Date of Discharge 06/16/21 Admission Diagnosis Admission Diagnosis See problem list Discharge Diagnosis See below Problems/Diagnosis: (1) NSTEMI (non-ST elevation myocardial infarction) Assessment & Plan: Cardiology consulted, appreciate recs Cath done showing distal RCA obstruction, stented Continue lovenox Trend troponin 0.64 > 1.414 > 1.814 BNP 1008 Replace K+ Statin started today - Cath by Dr Naylor, Stented last night, Statin, BB, Will have close f/u with PCP and Cardiology Status: Resolved Resolution Date/Time: 08/15/19 @ 15:28 (2) Acute renal insufficiency Assessment & Plan: Continue IVF - Push PO hydration Status: Acute (3) Nicotine dependence, cigarettes, uncomplicated Assessment & Plan: Discussed smoking cessation, pt working on cutting down and quitting - Encouraged Cessation Status: Chronic (4) Essential hypertension Assessment & Plan: Resume home meds Status: Chronic (5) HLD (hyperlipidemia) Assessment & Plan: Start statin Status: Chronic Chief Complaint/HPI Chief Complaint/HPI 51y/o F with Hx of HTN, HLD, a-fib with ICD, and COPD admitted due to CP. States that she had been having sharp CP intermittently for the past several weeks and was seen by the ED on 06/11 and 06/12 with negative cardiac workups. States that she saw her PCP and was told to come to the ER if her Sx's worsened. Then, starting yesterday at about 10am she developed a constant centralized chest pressure which worsened with exertion. Reports associated SOB and sweating. Pt had a heart cath done in 2019 in [place] which showed small vessel dz. Discharge Summary-Simple/Stand Procedures Cardiac Cath 06/[address] Naylor Cardiology Discharge Physical Examination Allergies: Coded Allergies: aspirin (Verified Allergy, Unknown, 03/07/19) latex (Verified Allergy, Unknown, 09/16/19) Vitals & I&Os Vital Sign - Last 12Hours Date Time Temp Pulse Resp B/P (MAP) Pulse Ox O2 Delivery O2 Flow Rate FiO2 06/16/21 12:51 83 06/16/21 11:52 36.7 21 121/74 (90) 97 Nasal Cannula 3.00 06/15/21 23:30 24 Intake and Output 06/16/21 00:00 Intake Total 300 ml Balance 300 ml General Appearance: Alert, Oriented X3, Cooperative, No Acute Distress HEENT: Mucous Memb Moist/[place] Respiratory: Clear to Auscultation, Normal Air Movement Cardiovascular: Regular Rate, No Murmurs Abdominal: Normal Bowel Sounds, Soft, No Tenderness, No Masses Extremities: Other (Mild ttp around cath site, no mass or bleeding) Skin: No Rashes Neuro: Normal Speech, Strength at 5/5 X4 Ext, Sensation Intact, Cranial Nerves 3-12 NL Psych/Mental Status: Mental Status NL, Mood NL Hospital Course Was the Problem List Reviewed?: Yes See final discharge diagnosis. Radiology Reviewed CXR: no acute findings Discussion & Recommendations 51 yo F that presented with chest pain and found to have NSTEMI. 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 Will have close f.u with PCP and Cardiology. Discharge Condition at discharge Stable Instructions to patient/family Please see electronic discharge instructions given to patient. Discharge Medications Reviewed and agree with Discharge Medication list on patient's Discharge In struction sheet Clinical Quality Measures AMI/AHF: ASA po Prior to arrival: No Copy Copies To 1: John BOLANOS HOLLY R MD Jun 16, 2021 16:15
--- NOTE | 2021-06-16 16:21 | Discharge Summary ---
Discharge [facility] Reconcile Patient Problems Problems Reviewed?: Yes Discharge Medications New, Converted or Re-Newed RX: Transmitted to Pharmacy New Medications: Atorvastatin Calcium (Atorvastatin Calcium) 80 Mg Tablet 80 MG PO HS, #30 TAB 4 Refills Clopidogrel Bisulfate (Clopidogrel) 75 Mg Tablet 75 MG PO DAILY, #30 TAB 4 Refills Metoprolol Succinate (Metoprolol Succinate) 25 Mg Tab.er.24h 25 MG PO DAILY, #30 TAB 3 Refills Continued Medications: Albuterol Sulfate (Proventil Hfa) 6.7 Gm Hfa.aer.ad 2 PUFF INH Q6H PRN for SHORTNESS OF BREATH, EA Albuterol Sulfate (Albuterol Sulfate) 2.5 Mg/3 Ml Vial.neb 3 ML NEB Q6H PRN for SHORTNESS OF BREATH, ML Amlodipine Besylate (Amlodipine Besylate) 10 Mg Tablet 10 MG PO HS, TAB LAST FILLED 01-11-2021 #90/90DS Clonidine HCl (Clonidine HCl) 0.1 Mg Tablet 0.1 MG PO BID, TAB LAST FILLED 01-11-2021 #180/90 DAY SUPPLY Cyclobenzaprine HCl (Cyclobenzaprine HCl) 10 Mg Tablet 10 MG PO BID, TAB Diphenhydramine HCl (Benadryl) 25 Mg Capsule 50 MG PO HS PRN for SLEEP, CAP Fluoxetine HCl (Fluoxetine HCl) 20 Mg Capsule 20 MG PO BID, CAP Furosemide (Furosemide) 20 Mg Tablet 20 MG PO DAILY, TAB FILLED A 5 DAY SUPPLY ON 06-13-2021 Gabapentin (Gabapentin) 400 Mg Capsule 400 MG PO TID, CAP TAKES 400MG +300MG TO EQUAL 700MG Gabapentin (Neurontin) 300 Mg Capsule 300 MG PO TID, CAP TAKES 400MG +300MG TO EQUAL 700MG Guaifenesin/Codeine Phosphate (Virtussin AC Liquid) 118 Ml Liquid 10 ML PO TID PRN for COUGH, ML Lisinopril (Lisinopril) 20 Mg Tablet 20 MG PO HS, TAB LAST FILLED 01-11-2021 #90/90DS Mirtazapine (Mirtazapine) 30 Mg Tablet 30 MG PO HS, TAB LAST FILLED 04-12-2021 #30/30 DAY SUPPLY Discontinued Medications: Naproxen Sodium (Aleve) 220 Mg Tablet 220-440 MG PO BID PRN for PAIN-MILD (1-4), TAB Spironolactone (Spironolactone) 25 Mg Tablet 25 MG PO DAILY, TAB LAST FILLED 01-11-2021 #90/90DS Patient Instructions Goal/Follow Up Appt: - F.u PCP 1-2 weeks - Alicia with Cardiology 2 weeks Activity & Diet Discharge Diet: Cardiac Diet Activity as Tolerated: Yes VENESSA RAINEY MD Jun 16, 2021 16:21
== END 2021-06-16 19:20 | disposition home or self-care (01) | DRG 247 ==
LOC: EDUNIT# 16:04 → ER FS 16:06 → CSD 18:30
PROVIDERS: ADMIT Family Medicine; ATTEND Family Medicine
PROC: 027035Z Dilation of Coronary Artery, One Artery with Two Drug-eluting Intraluminal Devices, Percutaneous Approach (ICD-10-PCS; principal; 2021-06-15)
PROC: 4A023N7 Measurement of Cardiac Sampling and Pressure, Left Heart, Percutaneous Approach (ICD-10-PCS; 2021-06-15)
PROC: B2111ZZ Fluoroscopy of Multiple Coronary Arteries using Low Osmolar Contrast (ICD-10-PCS; 2021-06-15)
PROC: B2151ZZ Fluoroscopy of Left Heart using Low Osmolar Contrast (ICD-10-PCS; 2021-06-15)
DX: I21.4 Non-ST elevation (NSTEMI) myocardial infarction (principal); I25.10 Atherosclerotic heart disease of native coronary artery without angina pectoris; N28.9 Disorder of kidney and ureter, unspecified; I48.91 Unspecified atrial fibrillation; I10 Essential (primary) hypertension; F17.210 Nicotine dependence, cigarettes, uncomplicated; E78.5 Hyperlipidemia, unspecified; E78.00 Pure hypercholesterolemia, unspecified; J44.9 Chronic obstructive pulmonary disease, unspecified; K21.9 Gastro-esophageal reflux disease without esophagitis; K44.9 Diaphragmatic hernia without obstruction or gangrene; M54.9 Dorsalgia, unspecified; Z79.52 Long term (current) use of systemic steroids; Z88.6 Allergy status to analgesic agent; Z91.040 Latex allergy status; Z95.810 Presence of automatic (implantable) cardiac defibrillator
CPT/HCPCS: 36415; 71046; 80053; 80061; 83690; 83735; 83874; 83880; 84484; 85007; 85027; 85347; 85610; 85730; 93005; 93041; 93306; 93458; 94640

== ENCOUNTER 2021-09-05 15:04 | Emergency (ER) | payer SELFPAY ==
[~2021-09-05] VITALS: Ht 170 cm; Wt 103.0 kg
[~2021-09-05 15:04] MED LIST changes: +ALBU2.5V4 NEB; +ATOR80TA76 PO; +CLOP75TA28 PO; +FURO20TA4 PO; +GABA300C PO; +GUAI-813 PO; +MTP25TSR PO; +NAPR220T66 PO
--- NOTE | 2021-09-05 15:10 | ED Cough/URI ---
General Stated Complaint: COUGH Source: patient Exam Limitations: no limitations History of Present Illness Date Seen by Provider: Sep 05, 2021 Time Seen by Provider: 15:05 Initial Comments 51yoF with PMH of COPD, CAD with stenting, afib s/p pacemaker coming in due to a cough and wheezing. This has been going on for 9 days now. Cough is slightly productive. The cough is severe, constant, nothing seems to make it better or worse. Feels somewhat similar to a COPD exacerbation for her. Has been using her breathing treatments regularly with the most recent one about an hour ago which does seem to help some. Her main complaint is the cough keeps her up at night. She is not particularly feeling more short of breath. She does wear 2 L oxygen as needed and has not needed it today. Otherwise denying any chest pain, nausea, vomiting, diarrhea, abdominal pain, fever, chills, weakness, numbness, or any other concerns. She has never had Covid and is not vaccinated. Allergies and Home Medications Allergies Coded Allergies: aspirin (Verified Allergy, Unknown, 03/07/19) latex (Verified Allergy, Unknown, 09/16/19) Patient Home Medication List Home Medication List Reviewed: Yes Albuterol Sulfate (Proventil Hfa) 6.7 Gm Hfa.aer.ad, 2 PUFF INH Q6H PRN for SHORTNESS OF BREATH, (Reported) Entered as Reported by: RADHA HUANG on 06/16/21 0938 Albuterol Sulfate (Albuterol Sulfate) 2.5 Mg/3 Ml Vial.neb, 3 ML NEB Q6H PRN for SHORTNESS OF BREATH, (Reported) Entered as Reported by: RADHA HUANG on 06/16/21 0939 Amlodipine Besylate (Amlodipine Besylate) 10 Mg Tablet, 10 MG PO HS, (Reported) Entered as Reported by: JAMES FRIAS on 08/14/19 1051 Atorvastatin Calcium (Atorvastatin Calcium) 80 Mg Tablet, 80 MG PO HS Prescribed by: DEWEY CASTILLO on 06/16/21 1253 Clonidine HCl (Clonidine HCl) 0.1 Mg Tablet, 0.1 MG PO BID, (Reported) Entered as Reported by: JAMES FRIAS on 08/14/19 1051 Clopidogrel Bisulfate (Clopidogrel) 75 Mg Tablet, 75 MG PO DAILY Prescribed by: DEWEY CASTILLO on 06/16/21 1253 Cyclobenzaprine HCl (Cyclobenzaprine HCl) 10 Mg Tablet, 10 MG PO BID, (Reported) Entered as Reported by: RADHA HUANG on 06/16/21 09 Diphenhydramine HCl (Benadryl) 25 Mg Capsule, 50 MG PO HS PRN for SLEEP, (Reported) Entered as Reported by: JAMES FRIAS on 08/14/19 1054 Doxycycline Hyclate (Doxycycline Hyclate) 100 Mg Tablet, 100 MG PO BID Prescribed by: JOSÉ MIGUEL SCHULZ on 09/05/21 152 Fluoxetine HCl (Fluoxetine HCl) 20 Mg Capsule, 20 MG PO BID, (Reported) Entered as Reported by: JAMES FRIAS on 08/14/19 105 Furosemide (Furosemide) 20 Mg Tablet, 20 MG PO DAILY, (Reported) Entered as Reported by: RADHA HUANG on 06/16/21 09 Gabapentin (Gabapentin) 400 Mg Capsule, 400 MG PO TID, (Reported) Entered as Reported by: ILYA PABLO on 04/15/212228 Gabapentin (Neurontin) 300 Mg Capsule, 300 MG PO TID, (Reported) Entered as Reported by: RADHA HUANG on 06/16/21 09 Guaifenesin/Codeine Phosphate (Virtussin AC Liquid) 118 Ml Liquid, 10 ML PO TID PRN for COUGH Prescribed by: JOSÉ MIGUEL SCHULZ on 09/05/21 152 Lisinopril (Lisinopril) 20 Mg Tablet, 20 MG PO HS, (Reported) Entered as Reported by: JAMES FRIAS on 08/14/19 105 Metoprolol Succinate (Metoprolol Succinate) 25 Mg Tab.er.24h, 25 MG PO DAILY Prescribed by: DEWEY CASTILLO on 06/16/21 1253 Mirtazapine (Mirtazapine) 30 Mg Tablet, 30 MG PO HS, (Reported) Entered as Reported by: ILYA PABLO on 04/15/212228 Prednisone (Prednisone) 20 Mg Tab, 40 MG PO DAILY Prescribed by: JOSÉ MIGUEL SCHULZ on 09/05/21 1525 Review of Systems Review of Systems Constitutional: No chills, No fever Respiratory: cough Cardiovascular: No chest pain Gastrointestinal: No abdominal pain, No diarrhea, No nausea, No vomiting Genitourinary: no symptoms reported Musculoskeletal: no symptoms reported Skin: no symptoms reported Psychiatric/Neurological: No Symptoms Reported Hematologic/Lymphatic: No Symptoms Reported Immunological/Allergic: no symptoms reported All Other Systems Reviewed Negative Unless Noted: Yes Past Mmjsncm-Lpwayb-Akwmng Hx Immunizations Up To Date Tetanus Booster (TDap): Unknown Seasonal Allergies Seasonal Allergies: No Past Medical History Surgery/Hospitalization HX: chest pain, cardiac history Surgeries: Yes (Cardiac defibrillator/pacemaker) Defibrillator, Gallbladder, Hysterectomy, Pacemaker, 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 Respiratory: Yes (Tobaccoism) COPD Cardiac: Yes (pacemaker/defib; a-fib, hx of VT, heart failure) Atrial Fibrillation, Heart Attack, High Cholesterol, Hypertension Neurological: No [employer] History: Hysterectomy, 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 Genitourinary: No Gastrointestinal: Yes (Esophageal Mass) Gastroesophageal Reflux, Hiatal Hernia Musculoskeletal: Yes (ruptured disks) Chronic Back Pain Endocrine: No HEENT: No Cancer: No Psychosocial: No Integumentary: No Blood Disorders: No Family Medical History Heart Disease Physical Exam Vital Signs - First Documented 09/05/21 15:17 Temp 36.4 Pulse 115 Resp 20 B/P (MAP) 192/130 (150) Pulse Ox 97 O2 Delivery Room Air Capillary Refill : Height: 5'7.00" Weight: 200lbs. 0oz. [id number]; 36.04 BMI Method:Stated General Appearance: WD/WN, no apparent distress Eyes: Bilateral Eye Normal Inspection HEENT: PERRL/EOMI, normal ENT inspection, pharynx normal Neck: non-tender, full range of motion, supple, normal inspection Respiratory: chest non-tender, no respiratory distress, no accessory muscle use, wheezing Cardiovascular: regular rate, rhythm, no edema, no murmur Gastrointestinal: normal bowel sounds, non tender, soft; No distended, No guarding Extremities: normal range of motion, non-tender, normal inspection, no pedal edema, no calf tenderness, normal capillary refill Neurologic/Psychiatric: no motor/sensory deficits, alert, normal mood/affect Skin: normal color, warm/dry Lymphatic: no adenopathy Progress/Results/Core Measures Suspected Sepsis SIRS Temperature: Pulse: Respiratory Rate: Blood Pressure / Mean: Results/Orders My Orders Orders - JOSÉ MIGUEL SCHULZ MD Doxycycline Hyclate Tablet (Vibramycin T (09/05/21 15:18) Prednisone Tablet (Deltasone Tablet) (09/05/21 15:30) Chest Pa/Lat (2 View) (09/05/21 15:18) Medications Given in ED Current Medications Medications Dose Ordered Sig/Norma Route Start Time Stop Time Status Last Admin Dose Admin Prednisone 40 mg ONCE ONCE PO 09/05/21 15:30 09/05/21 15:31 DC 09/05/21 15:32 40 MG Vital Signs/I&O 09/05/21 09/05/21 15:17 15:30 Temp 36.4 36.4 Pulse 115 115 Resp 20 20 B/P (MAP) 192/130 (150) 192/130 Pulse Ox 97 97 O2 Delivery Room Air Room Air Capillary Refill : Progress Note : Progress Note 51-year-old female with above history coming in due to worsening productive cough and wheezing in the setting of known COPD. ABCs were intact and vitals were stable on presentation. Despite her being on room air, and often needing 2 L oxygen, her oxygen saturation was 96%. Lungs were wheezing in all castillo. She had just given herself a breathing treatment prior to arrival. Clinically she does have a COPD exacerbation that is more mild. We will give her steroids as well as antibiotics. Chest x-ray ordered to assess for any focal pneumonia versus pneumothorax versus some other etiology. Chest x-ray without any acute findings on my interpretation. I believe she is stable for discharge with outpatient follow-up. She was sent home with strict return precautions Diagnostic Imaging Diagonstic Imaging: Xray Plain Films/CT/US/NM/MRI: chest Comments X-ray chest ordered and interpreted by me showing no pneumonia, pneumothorax, and pacemaker is in good placement. Overall appears similar to her prior chest xray from May of this year. [facility], [place] NAME: JENNIFER DICKERSON Ammy [facility] REC#: [id number] PT STATUS: REG ER : 1970 PHYSICIAN: JOSÉ MIGUEL SCHULZ MD ADMIT DATE: 09/05/21/ER FS Draft Date of Exam:09/05/21 CHEST PA/LAT (2 VIEW) EXAMINATION: PA and lateral chest. COMPARISON: Prior study from June 15, 2021. INDICATION: Cough and wheezing. FINDINGS: There is eventration of the diaphragms unchanged from prior examination. There is no new alveolar consolidation evident or findings of an effusion. There is no pneumothorax. Heart size and mediastinal contours appear stable. An implantable cardiac defibrillator device is present. IMPRESSION: Stable radiographic appearance of the chest. No new or acute cardiopulmonary process evident. Dictated on workstation # [id number] Dict: 09/05/21 1530 Trans: 09/05/21 1535 [facility] [id number] Interpreted by: NADYA ANTONIO MD Electronically signed by: Departure Impression Primary Impression: COPD with exacerbation Disposition: HOME, SELF-CARE Condition: Stable Departure-Patient Inst. Referrals: RICHARD HERMAN MD (PCP/Family) Primary Care Physician Patient Instructions: COPD Exacerbation, Adult ED Add. Discharge Instructions: You were seen in the emergency department for your worsening cough that is keeping up at night. I am concerned this is more of a COPD exacerbation. I have sent steroids as well as antibiotics to your pharmacy. If you begin feeling more short of breath or have any concerns then please come back to the ER Scripts Doxycycline Hyclate (Doxycycline Hyclate) 100 Mg Tablet 100 MG PO BID for 7 Days, #14 TAB 0 Refills Prov: JOSÉ MIGUEL SCHULZ MD 09/05/21 Prednisone (Prednisone) 20 Mg Tab 40 MG PO DAILY for 4 Days, #8 TAB Prov: JOSÉ MIGUEL SCHULZ MD 09/05/21 Guaifenesin/Codeine Phosphate (Virtussin AC Liquid) 118 Ml Liquid 10 ML PO TID PRN for COUGH for 7 Days, #118 ML Prov: JOSÉ MIGUEL SCHULZ MD 09/05/21 JOSÉ MIGUEL SCHULZ MD Sep 05, 2021 15:10
[2021-09-05] MEDS ORDERED: DOXYCYCLINE 100 MG (VIBRAMYCIN) TABLET PO STA (15:18)
[2021-09-05] MEDS ORDERED: DOXY100T2 PO (15:25)
[2021-09-05] MEDS ORDERED: PRD20T PO (15:25)
[2021-09-05] MEDS ORDERED: GUAI-813 PO (15:25)
[2021-09-05 15:30] VITALS: BP 192/130
[2021-09-05] MEDS ORDERED: predniSONE 20 MG TAB PO ONE (15:30)
--- NOTE | 2021-09-05 15:35 | Diagnostic Imaging Report ---
EXAMINATION: PA and lateral chest. COMPARISON: Prior study from June 15, 2021. INDICATION: Cough and wheezing. FINDINGS: There is eventration of the diaphragms unchanged from prior examination. There is no new alveolar consolidation evident or findings of an effusion. There is no pneumothorax. Heart size and mediastinal contours appear stable. An implantable cardiac defibrillator device is present. IMPRESSION: Stable radiographic appearance of the chest. No new or acute cardiopulmonary process evident. Dictated by: Dictated on workstation # [id number]
== END 2021-09-05 15:30 | disposition home or self-care (01) ==
LOC: EDUNIT# 15:04 → ER FS 15:05
DX: J44.1 Chronic obstructive pulmonary disease with (acute) exacerbation (principal); I11.0 Hypertensive heart disease with heart failure; I50.9 Heart failure, unspecified; I25.2 Old myocardial infarction; E78.00 Pure hypercholesterolemia, unspecified; I48.91 Unspecified atrial fibrillation; Z95.810 Presence of automatic (implantable) cardiac defibrillator; Z79.01 Long term (current) use of anticoagulants; Z79.899 Other long term (current) drug therapy
CPT/HCPCS: 71046

== ENCOUNTER 2021-09-24 01:59 | Inpatient (IN) | payer BC ==
[~2021-09-24] VITALS: Ht 170 cm; Wt 96.4 kg
[~2021-09-24 01:59] MED LIST changes: +CYCL10TA25 PO; -CYCL10TA9 PO; -FLUO20CA46 PO; +FLUO20CA48 PO
[2021-09-24] MEDS ORDERED: KETOROLAC 30 MG/ML VIAL IVP ONE (02:30)
[2021-09-24] MEDS ORDERED: PIPERACILLIN SODIUM/TAZOBACTAM 4.5 GM in NS (IVPB) 100 ML IV ONE (02:30)
[2021-09-24 02:54] LABS: WHITE BLOOD COUNT 5.4 10^3/uL (4.3-11.0)
[2021-09-24 02:55] LABS: BASOPHILS % (AUTO) 0 % (0-10); EOSINOPHILS % (AUTO) 0 % (0-10); HEMATOCRIT 45 % (35-52); HEMOGLOBIN 14.6 g/dL (11.5-16.0); LYMPHOCYTES # (AUTO) 0.8 X 10^3 (1.0-4.0); LYMPHOCYTES % (AUTO) 16 % (12-44); MEAN CORPUSCULAR HEMOGLOBIN 30 pg (25-34); MEAN CORPUSCULAR HGB CONC 33 g/dL (32-36); MEAN CORPUSCULAR VOLUME 91 fL (80-99); MEAN PLATELET VOLUME 11.1 fL (9.0-12.2); MONOCYTES # (AUTO) 0.3 X 10^3 (0.0-1.0); MONOCYTES % (AUTO) 6 % (0-12); NEUTROPHILS # (AUTO) 4.2 X 10^3 (1.8-7.8); NEUTROPHILS % (AUTO) 78 % (42-75); PLATELET COUNT 156 10^3/uL (130-400)
[2021-09-24 03:10] LABS: BUN/CREATININE RATIO 16; CARBON DIOXIDE 28 MMOL/L (21-32); CHLORIDE 99 MMOL/L (98-107); CREATININE SERUM 0.73 MG/DL (0.60-1.30); GFR ESTIMATED 84; POTASSIUM 3.1 MMOL/L (3.6-5.0); SODIUM 141 MMOL/L (135-145)
[2021-09-24 03:11] LABS: ALANINE AMINOTRANSFERASE 20 U/L (0-55); ALBUMIN 3.7 GM/DL (3.2-4.5); ALKALINE PHOSPHATASE 158 U/L (40-136); BILIRUBIN,TOTAL 0.5 MG/DL (0.1-1.0); GLUCOSE 149 MG/DL (70-105); TOTAL PROTEIN 7.7 GM/DL (6.4-8.2)
[2021-09-24] MEDS ORDERED: NS 100 ML (IVPB) BAG IV ONE (03:15)
[2021-09-24] MEDS ORDERED: CATHETER FLUSH 10 ML SYR IV PRN (03:15)
[2021-09-24] MEDS ORDERED: HOLD METFORMIN - RECEIVED CONTRAST 20 ML VIAL IV SCH (03:15)
[2021-09-24] MEDS ORDERED: IOHEXOL 350 MG/ML 100 ML (OMNIPAQUE 350) VIAL IV ONE (03:15)
[2021-09-24 03:39] LABS: ABG PCO2 47 MMHG (35-45); ABG PH 7.46 (7.37-7.43)
[2021-09-24 03:40] LABS: ABG BASE EXCESS 8.4 MMOL/L (-2.5-2.5); ABG OXYGEN SATURATION 73 % (94-100); ABG TCO2 34.8 MMOL/L (21.0-31.0); INSPIRED O2 6 L; VENTILATOR NO
[2021-09-24 03:42] LABS: ABG PO2 36 MMHG (79-93); ALLENS TEST YES-POS; PATIENT TEMP 38.1
--- NOTE | 2021-09-24 04:24 | Diagnostic Imaging Report ---
EXAMINATION: CT angiography of the chest. TECHNIQUE: Contrast enhanced thin section helical images were obtained through the chest with intravenous contrast timed for the optimal opacification of the arterial structures per CTA protocol. Post-processing, reconstructions and interpretation of angiographic images of the vessels was performed. 3D MIP reconstructions were performed and reviewed. All CT scans use one or more of the following dose optimizing techniques: automated exposure control, MA and/or KvP adjustment based on a patient size and exam type, or iterative reconstruction. HISTORY: Short of breath, Covid-19 COMPARISON: 10/08/2019 FINDINGS: There is no pulmonary embolism. There is mild to moderate Covid-19 pneumonia with groundglass in both lungs. No pleural effusion. No pneumothorax. There is no axillary or supraclavicular lymphadenopathy. There is no mediastinal lymphadenopathy. There is a 3.5 x 1.6 cm rounded possibly submucosal mass in the upper 3rd of the esophagus unchanged from 02/27/2019. Pacemaker is present. Heart size is normal. There are no coronary artery calcifications. No pericardial effusion. Aorta is normal in caliber. Limited views of the upper abdomen show changes of cholecystectomy. There are no suspicious osseus lesions. IMPRESSION: 1. No pulmonary embolism. 2. [id number] Covid-19 pneumonia. 3. Unchanged likely submucosal mass in the upper 3rd of the esophagus. 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 If the patient has not previously been evaluated with endoscopy then this is recommended. Dictated by: Dictated on workstation # [id number]
--- NOTE | 2021-09-24 04:41 | Diagnostic Imaging Report ---
EXAMINATION: Chest 1 view HISTORY: Short of breath COMPARISON: 06/11/2021 FINDINGS: There are [id number] bilateral airspace opacities. No pleural effusion or pneumothorax. Heart size is normal for technique. Left subclavian pacemaker is present. IMPRESSION: 1. [id number] bilateral airspace opacities consistent with Covid-19 pneumonia. Dictated by: Dictated on workstation # [id number]
[2021-09-24] MEDS ORDERED: morphine INJ 10 MG/ML 1ML (SYR OR VIAL) IVP STA (05:54)
[2021-09-24] MEDS ORDERED: NS IV 1000 ML 1,000 ML IV SCH (06:00)
--- NOTE | 2021-09-24 06:42 | ED Respiratory ---
General Chief Complaint: Respiratory Problems Stated Complaint: SOB;COVID+ Nursing Triage Note: PT REPORTS TESTING POSITIVE FOR COVID ON 09/16/21. INCREASED SOA TODAY AND INCREASED O2 NEED FROM BASELINE 2L. C/O HEADACHE AND GENERAL PAIN 07/25. EMS ADMINISTERED 125MG SOLUMEDROL IV AND ALBUTEROL BREATHING TX ENROUTE. Source: patient, EMS Exam Limitations: no limitations History of Present Illness Date Seen by Provider: Sep 24, 2021 Time Seen by Provider: 02:00 Initial Comments Patient is a 51-year-old female with history of COPDsupplemental O2 dependent who presents with progressive shortness of breath over the past 2 days with increased oxygen requirement at baseline. Patient complains of headache, generalized pain for the past 2 days. She complains of chest pain pain with deep breathing. She is currently residing in a hotel. EMS was contacted and noted patient with mild respiratory distress. Patient administered Solu-Medrol and given albuterol breathing treatment in route to the hospital and placed on 5 L of oxygen. Patient does report symptomatic improvement. Denies fever chills, leg pain swelling. No history of CAD, PE or CHF. No other acute symptoms or complaints peer patient is currently in between homes which is why she has been living in a hotel. Timing/Duration: getting worse Severity: moderate Modifying Factors: Improves With Other Associated Symptoms: other Allergies and Home Medications Allergies Coded Allergies: aspirin (Verified Allergy, Unknown, 03/07/19) latex (Verified Allergy, Unknown, 09/16/19) Patient Home Medication List Home Medication List Reviewed: Yes Albuterol Sulfate (Proventil Hfa) 6.7 Gm Hfa.aer.ad, 2 PUFF INH Q6H PRN for SHORTNESS OF BREATH, (Reported) Entered as Reported by: RADHA HUANG on 06/16/21 0938 Albuterol Sulfate (Albuterol Sulfate) 2.5 Mg/3 Ml Vial.neb, 3 ML NEB Q6H PRN for SHORTNESS OF BREATH, (Reported) Entered as Reported by: RADHA HUANG on 06/16/21 0939 Amlodipine Besylate (Amlodipine Besylate) 10 Mg Tablet, 10 MG PO HS, (Reported) Entered as Reported by: JAMES FRIAS on 08/14/19 1051 Atorvastatin Calcium (Atorvastatin Calcium) 80 Mg Tablet, 80 MG PO HS Prescribed by: DEWEY CASTILLO on 06/16/21 1253 Clonidine HCl (Clonidine HCl) 0.1 Mg Tablet, 0.1 MG PO BID, (Reported) Entered as Reported by: JAMES FRIAS on 08/14/19 105 Clopidogrel Bisulfate (Clopidogrel) 75 Mg Tablet, 75 MG PO DAILY Prescribed by: DEWEY CASTILLO on 06/16/21 1253 Cyclobenzaprine HCl (Cyclobenzaprine HCl) 10 Mg Tablet, 10 MG PO BID, (Reported) Entered as Reported by: RADHA HUANG on 06/16/21 0938 Diphenhydramine HCl (Benadryl) 25 Mg Capsule, 50 MG PO HS PRN for SLEEP, (Reported) Entered as Reported by: JAMES FRIAS on 08/14/19 105 Doxycycline Hyclate (Doxycycline Hyclate) 100 Mg Tablet, 100 MG PO BID Prescribed by: JOSÉ MIGUEL SCHULZ on 09/05/21 1525 Fluoxetine HCl (Fluoxetine HCl) 20 Mg Capsule, 20 MG PO BID, (Reported) Entered as Reported by: JAMES FRIAS on 08/14/19 105 Furosemide (Furosemide) 20 Mg Tablet, 20 MG PO DAILY, (Reported) Entered as Reported by: RADHA HUANG on 06/16/21 09 Gabapentin (Gabapentin) 400 Mg Capsule, 400 MG PO TID, (Reported) Entered as Reported by: ILYA PABLO on 04/15/21 2229 Gabapentin (Neurontin) 300 Mg Capsule, 300 MG PO TID, (Reported) Entered as Reported by: RADHA HUANG on 06/16/21 09 Guaifenesin/Codeine Phosphate (Virtussin AC Liquid) 118 Ml Liquid, 10 ML PO TID PRN for COUGH Prescribed by: JOSÉ MIGUEL SCHULZ on 09/05/21 1526 Lisinopril (Lisinopril) 20 Mg Tablet, 20 MG PO HS, (Reported) Entered as Reported by: JAMES FRIAS on 08/14/19 105 Metoprolol Succinate (Metoprolol Succinate) 25 Mg Tab.er.24h, 25 MG PO DAILY Prescribed by: DEWEY CASTILLO on 06/16/21 1253 Mirtazapine (Mirtazapine) 30 Mg Tablet, 30 MG PO HS, (Reported) Entered as Reported by: ILYA PABLO on 04/15/21 2229 Prednisone (Prednisone) 20 Mg Tab, 40 MG PO DAILY Prescribed by: JOSÉ MIGUEL SCHULZ on 09/05/21 1525 Review of Systems Review of Systems Constitutional: see HPI EENTM: no symptoms reported Respiratory: see HPI Cardiovascular: see HPI Gastrointestinal: see HPI Genitourinary: see HPI Musculoskeletal: see HPI Skin: see HPI Psychiatric/Neurological: See HPI Hematologic/Lymphatic: See HPI Immunological/Allergic: see HPI Past Cudxxlx-Duzwnm-Cwsbds Hx Patient Social History Tobacco Use?: Yes Tobacco type used: Cigarettes Smoking Status: Current Everyday Smoker Substance use?: No Alcohol Use?: No Pt feels they are or have been: No Immunizations Up To Date Tetanus Booster (TDap): Unknown Seasonal Allergies Seasonal Allergies: No Past Medical History Surgery/Hospitalization HX: chest pain, cardiac history Surgeries: Yes (Cardiac defibrillator/pacemaker) Defibrillator, Gallbladder, Hysterectomy, Pacemaker, 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 Respiratory: Yes (Tobaccoism) COPD Cardiac: Yes (pacemaker/defib; a-fib, hx of VT, heart failure) Atrial Fibrillation, Heart Attack, High Cholesterol, Hypertension Neurological: No [employer]IMENT[employer] History: Hysterectomy, 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 Genitourinary: No Gastrointestinal: Yes (Esophageal Mass) Gastroesophageal Reflux, Hiatal Hernia Musculoskeletal: Yes (ruptured disks) Chronic Back Pain Endocrine: No HEENT: No Cancer: No Psychosocial: No Integumentary: No Blood Disorders: No Family Medical History Heart Disease Physical Exam Vital Signs - First Documented Capillary Refill : Less Than 3 Seconds Height: 5'7.00" Weight: 200lbs. 0oz. [id number]; 36.00 BMI Method:Stated General Appearance: mild distress Eyes: Bilateral Eye Normal Inspection, Bilateral Eye PERRL, Bilateral Eye EOMI HEENT: PERRL/EOMI, pharynx normal Neck: full range of motion, supple Respiratory: decreased breath sounds, rhonchi Cardiovascular: normal peripheral pulses Gastrointestinal: non tender, soft Neurologic/Psychiatric: alert, oriented x 3 Focused Exam Sepsis Stage: Ruled Out Lactate Level 09/24/21 02:05: Lactic Acid Level 1.39 Lactic Acid Level Laboratory Tests Test 09/24/21 02:05 Lactic Acid Level 1.39 MMOL/L (0.50-2.00) Progress/Results/Core Measures Suspected Sepsis Recent Fever Within 48 Hours: Yes Infection Criteria Present: Documented Infection New/Unexplained Altered Menta: No SIRS Temperature: Pulse: 114 Respiratory Rate: 24 Laboratory Tests 09/24/21 02:05: White Blood Count 5.4 Blood Pressure 135 /96 Mean: 97 09/24/21 02:05: Lactic Acid Level 1.39 Laboratory Tests 09/24/21 02:05: Creatinine 0.73, Platelet Count 156, Total Bilirubin 0.5 Results/Orders Lab Results Laboratory Tests Test 09/24/21 02:05 09/24/21 03:30 Range/Units White Blood Count 5.4 4.3-11.0 10^3/uL Red Blood Count 4.93 3.80-5.11 10^6/uL Hemoglobin 14.6 11.5-16.0 g/dL Hematocrit 45 35-52 % Mean Corpuscular Volume 91 80-99 fL Mean Corpuscular Hemoglobin 30 25-34 pg Mean Corpuscular Hemoglobin Concent 33 32-36 g/dL Red Cell Distribution Width 14.7 H 10.0-14.5 % Platelet Count 156 130-400 10^3/uL Mean Platelet Volume 11.1 9.0-12.2 fL Immature Granulocyte % (Auto) 1 % Neutrophils (%) (Auto) 78 H 42-75 % Lymphocytes (%) (Auto) 16 12-44 % Monocytes (%) (Auto) 6 0-12 % Eosinophils (%) (Auto) 0 0-10 % Basophils (%) (Auto) 0 0-10 % Neutrophils # (Auto) 4.2 1.8-7.8 X 10^3 Lymphocytes # (Auto) 0.8 L 1.0-4.0 X 10^3 Monocytes # (Auto) 0.3 0.0-1.0 X 10^3 Eosinophils # (Auto) 0.0 0.0-0.3 10^3/uL Basophils # (Auto) 0.0 0.0-0.1 10^3/uL Immature Granulocyte # (Auto) 0.0 0.0-0.1 10^3/uL Sodium Level 141 135-145 MMOL/L Potassium Level 3.1 L 3.6-5.0 MMOL/L Chloride Level 99 98-107 MMOL/L Carbon Dioxide Level 28 21-32 MMOL/L Anion Gap 14 5-14 MMOL/L Blood Urea Nitrogen 12 7-18 MG/DL Creatinine 0.73 0.60-1.30 MG/DL Estimat Glomerular Filtration Rate 84 BUN/Creatinine Ratio 16 Glucose Level 149 H 70-105 MG/DL Lactic Acid Level 1.39 0.50-2.00 MMOL/L Calcium Level 9.0 8.5-10.1 MG/DL Corrected Calcium 9.2 8.5-10.1 MG/DL Total Bilirubin 0.5 0.1-1.0 MG/DL Aspartate Amino Transf (AST/SGOT) 30 5-34 U/L Alanine Aminotransferase (ALT/SGPT) 20 0-55 U/L Alkaline Phosphatase 158 H 40-136 U/L Troponin I < 0.30 <0.30 NG/ML Pro-B-Type Natriuretic Peptide 125.6 H <75.0 PG/ML Total Protein 7.7 6.4-8.2 GM/DL Albumin 3.7 3.2-4.5 GM/DL Blood Gas Puncture Site LF RADIAL Blood Gas Patient Temperature 38.1 Arterial Blood pH 7.46 H 7.37-7.43 Arterial Blood Partial Pressure CO2 47 H 35-45 MMHG Arterial Blood Partial Pressure O2 36 *L 79-93 MMHG Arterial Blood HCO3 33 H 23-27 MMOL/L Arterial Blood Total CO2 34.8 H 21.0-31.0 MMOL/L Arterial Blood Oxygen Saturation 73 L 94-100 % Arterial Blood Base Excess 8.4 H -2.5-2.5 MMOL/L Andry Test YES-POS Blood Gas Ventilator Setting NO Blood Gas Inspired Oxygen 6 L My Orders Orders - ARISTEO COYNE DO Cbc With Automated Diff (09/24/21 02:17) Comprehensive Metabolic Panel (09/24/21 02:17) Troponin I Fs (09/24/21 02:17) Probnp Fs (09/24/21 02:17) Chest 1 View Ap/Pa Only (09/24/21 02:17) Ekg-Prn For Chest Pain Or Rhyt (09/24/21 02:17) Blood Culture (09/24/21 02:17) Lactic Acid Analyzer (09/24/21 02:17) Arterial Blood Gas (09/24/21 02:17) Ua Culture If Indicated (09/24/21 02:17) Urine Bedside (09/24/21 02:17) Ct Angio Chest W (09/24/21 02:17) Dexamethasone Injection (Decadron Inje (09/24/21 02:30) Piperacillin Sodium/Tazobactam (Zosyn Vi (09/24/21 02:30) Ketorolac Injection (Toradol Injection) (09/24/21 02:30) Iohexol Injection (Omnipaque 350 Mg/Ml 1 (09/24/21 03:15) Received Contrast (Hold Metformin- Contr (09/24/21 03:15) Sodium Chloride Flush (Catheter Flush Sy (09/24/21 03:15) Ns (Ivpb) (Sodium Chloride 0.9% Ivpb Bag (09/24/21 03:15) Blood Culture (09/24/21 03:00) Morphine Injection (Morphine Injection (09/24/21 05:54) Ns Iv 1000 Ml (Sodium Chloride 0.9%) (09/24/21 06:00) Potassium Chloride (Tablet) (K Dur Table (09/24/21 06:45) Medications Given in ED Current Medications Medications Dose Ordered Sig/Norma Route Start Time Stop Time Status Last Admin Dose Admin Dexamethasone Sodium Phosphate 10 mg ONCE ONCE IV 09/24/21 02:30 09/24/21 02:31 DC 09/24/21 03:12 10 MG Iohexol 100 ml ONCE ONCE IV 09/24/21 03:15 09/24/21 03:16 DC 09/24/21 04:01 100 ML Ketorolac Tromethamine 30 mg ONCE ONCE IVP 09/24/21 02:30 09/24/21 02:31 DC 09/24/21 03:12 30 MG Piperacillin Sod/ Tazobactam Sod 4.5 gm/Sodium Chloride 100 ml @ 200 mls/hr ONCE ONCE IV 09/24/21 02:30 09/24/21 02:59 DC 09/24/21 03:12 200 MLS/HR Sodium Chloride 10 ml NEEDED PRN IV 09/24/21 03:15 09/24/21 04:02 10 ML Sodium Chloride 100 ml ONCE ONCE IV 09/24/21 03:15 09/24/21 03:16 DC 09/24/21 04:02 80 ML Vital Signs/I&O 09/24/21 09/24/21 09/24/21 09/24/21 02:02 02:02 02:02 02:30 Temp 38.1 38.1 Pulse 114 114 112 Resp 24 28 B/P (MAP) 135/96 135/96 (109) 146/102 Pulse Ox 91 92 91 O2 Delivery Nasal Cannula Nasal Cannula Nasal Cannula Nasal Cannula O2 Flow Rate 6.00 2.00 6.00 6.00 09/24/21 09/24/21 09/24/21 09/24/21 03:00 04:00 05:00 06:23 Pulse 109 103 101 91 Resp 22 B/P (MAP) 164/94 148/93 147/97 135/79 Pulse Ox 90 92 93 91 O2 Delivery Nasal Cannula Nasal Cannula Nasal Cannula Nasal Cannula O2 Flow Rate 6.00 6.00 6.00 6.00 Capillary Refill : Less Than 3 Seconds Blood Pressure Mean: 97 Departure Communication (Admissions) Chest x-ray: Bilateral airway opacities consistent with Covid pneumonia. CTA chest: No pulmonary embolus, bilateral airway opacities consistent with Covid pneumonia Patient with Covid pneumonia with increased oxygen requirement/utilization with sleeping. Patient requires up to 5 L of oxygen by nasal cannula to maintain saturation greater than 90%. She is not in overt distress and vital signs are otherwise stable. CTA negative for PE but suggestive of Covid pneumonia. IV Decadron Zosyn given. Potassium replaced. Dr. Dumont to the [facility] hospitalist service Impression Primary Impression: Acute and chronic respiratory failure with hypoxia Additional Impressions: Pneumonia due to COVID-19 virus Hypokalemia Disposition: ADMITTED INPATIENT Condition: Stable/Unchanged Admissions Decision to Admit Reason: Admit from ER (General) Decision to Admit/Date: Sep 24, 2021 Time/Decision to Admit Time: 06:00 Transfer Method of Transfer: EMS Departure-Patient Inst. Referrals: RICHARD HERMAN MD (PCP/Family) Primary Care Physician ARISTEO COYNE DO Sep 24, 2021 06:42
[2021-09-24] MEDS ORDERED: KCL 20 MEQ TAB (K-DUR) PO ONE (06:45)
[2021-09-24] MEDS: NS IV 1000 ML 1,000 ML IV SCH (10:01)
[2021-09-24] MEDS: PIPERACILLIN/TAZO 4.5 GM/NS 100 ML IV SCH ×4 (10:01→17:40)
[2021-09-24] MEDS ORDERED: FLU QUADRIvalent (3YOA+) 60 mcg/0.5 ml 2021-22(AFLURIA) IM ONE (10:15)
[2021-09-24 11:23] VITALS: BP 125/80
[2021-09-24] MEDS ORDERED: MIRT-69 PO (13:36)
[2021-09-24] MEDS ORDERED: FLUO40CA PO (13:36)
[2021-09-24] MEDS ORDERED: CLOP75TA28 PO (13:37)
[2021-09-24] MEDS ORDERED: ATOR80TA76 PO (13:37)
[2021-09-24] MEDS ORDERED: MTP25TSR PO (13:38)
[2021-09-24] MEDS ORDERED: ACET-2267 PO (13:39)
[2021-09-24 16:00] VITALS: BP 129/81
--- NOTE | 2021-09-24 17:15 | History & Physical ---
HPI History of Present Illness: 51 yo F with baseline oxygen dependence that tested positive for Covid on 09/16. She is unvaccinated and did not receive the infusion. Patient normally requires 2L continuously and in the last 2 days she has been requiring more oxygen. She has had some decreased exercise tolerance due to the shortness of breath. States that she has not had any fever in the last couple days. Decreased appetite. No known sick contacts. Source: patient Exam Limitations: no limitations Date seen by provider: Sep 24, 2021 Time Seen by Provider: 12:45 Attending Physician Venessa Dumont MD PCP John Wilde MD Consult Date of Admission Sep 24, 2021 at 08:38 Home Medications Home Medications Reviewed patient Home Medication Reconciliation performed by pharmacy medication reconciliations senior telecommunications technician and/or nursing. Patients Allergies have been reviewed. Allergies Coded Allergies: aspirin (Verified Allergy, Unknown, 03/07/19) latex (Verified Allergy, Unknown, 09/16/19) ADG-Wmivbv-Zavmzj Hx Patient Social History Smoking Status: Current Everyday Smoker 2nd Hand Smoke Exposure: Yes Recent Hopitalizations: No Alcohol Use?: No Tobacco type used: Cigarettes Have you traveled recently?: No Immunizations Up To Date Tetanus Booster (TDap): Unknown Influenza Vaccine Up-to-Date: No; Not Current Second COVID19 Vaccination Sergio: NOT VACCINATED Third COVID19 Vaccination Date: NOT VACCINATED Past Medical History HTN CAD COPD with 2L oxygen requirement Family Medical History Significant Family History: Heart Disease Review of Systems ([facility]) Constitutional: No chills, No fever; malaise, weakness EENTM: no symptoms reported Respiratory: cough, dyspnea on exertion, short of breath Cardiovascular: no symptoms reported; No chest pain, No edema, No palpitations Gastrointestinal: No abdominal pain, No constipation, No diarrhea; loss of appetite Genitourinary: no symptoms reported; No dysuria, No frequency, No hematuria : No Musculoskeletal: back pain; No joint pain, No muscle pain Skin: no symptoms reported Psychiatric/Neurological: No Symptoms Reported Reviewed Test Results Reviewed Test Results Lab Laboratory Tests Test 09/24/21 02:05 09/24/21 03:30 Range/Units White Blood Count 5.4 4.3-11.0 10^3/uL Red Blood Count 4.93 3.80-5.11 10^6/uL Hemoglobin 14.6 11.5-16.0 g/dL Hematocrit 45 35-52 % Mean Corpuscular Volume 91 80-99 fL Mean Corpuscular Hemoglobin 30 25-34 pg Mean Corpuscular Hemoglobin Concent 33 32-36 g/dL Red Cell Distribution Width 14.7 H 10.0-14.5 % Platelet Count 156 130-400 10^3/uL Mean Platelet Volume 11.1 9.0-12.2 fL Immature Granulocyte % (Auto) 1 % Neutrophils (%) (Auto) 78 H 42-75 % Lymphocytes (%) (Auto) 16 12-44 % Monocytes (%) (Auto) 6 0-12 % Eosinophils (%) (Auto) 0 0-10 % Basophils (%) (Auto) 0 0-10 % Neutrophils # (Auto) 4.2 1.8-7.8 X 10^3 Lymphocytes # (Auto) 0.8 L 1.0-4.0 X 10^3 Monocytes # (Auto) 0.3 0.0-1.0 X 10^3 Eosinophils # (Auto) 0.0 0.0-0.3 10^3/uL Basophils # (Auto) 0.0 0.0-0.1 10^3/uL Immature Granulocyte # (Auto) 0.0 0.0-0.1 10^3/uL Sodium Level 141 135-145 MMOL/L Potassium Level 3.1 L 3.6-5.0 MMOL/L Chloride Level 99 98-107 MMOL/L Carbon Dioxide Level 28 21-32 MMOL/L Anion Gap 14 5-14 MMOL/L Blood Urea Nitrogen 12 7-18 MG/DL Creatinine 0.73 0.60-1.30 MG/DL Estimat Glomerular Filtration Rate 84 BUN/Creatinine Ratio 16 Glucose Level 149 H 70-105 MG/DL Lactic Acid Level 1.39 0.50-2.00 MMOL/L Calcium Level 9.0 8.5-10.1 MG/DL Corrected Calcium 9.2 8.5-10.1 MG/DL Total Bilirubin 0.5 0.1-1.0 MG/DL Aspartate Amino Transf (AST/SGOT) 30 5-34 U/L Alanine Aminotransferase (ALT/SGPT) 20 0-55 U/L Alkaline Phosphatase 158 H 40-136 U/L Troponin I < 0.30 <0.30 NG/ML Pro-B-Type Natriuretic Peptide 125.6 H <75.0 PG/ML Total Protein 7.7 6.4-8.2 GM/DL Albumin 3.7 3.2-4.5 GM/DL Blood Gas Puncture Site LF RADIAL Blood Gas Patient Temperature 38.1 Arterial Blood pH 7.46 H 7.37-7.43 Arterial Blood Partial Pressure CO2 47 H 35-45 MMHG Arterial Blood Partial Pressure O2 36 *L 79-93 MMHG Arterial Blood HCO3 33 H 23-27 MMOL/L Arterial Blood Total CO2 34.8 H 21.0-31.0 MMOL/L Arterial Blood Oxygen Saturation 73 L 94-100 % Arterial Blood Base Excess 8.4 H -2.5-2.5 MMOL/L Andry Test YES-POS Blood Gas Ventilator Setting NO Blood Gas Inspired Oxygen 6 L Physical Exam-([facility]C) Physical Exam Vital Signs VS - Last 72 Hours, by Label 09/24/21 09/24/21 09/24/21 09/24/21 02:02 02:02 02:02 02:30 Temp 38.1 38.1 Pulse 114 114 112 Resp 24 28 B/P (MAP) 135/96 135/96 (109) 146/102 Pulse Ox 91 92 91 O2 Delivery Nasal Cannula Nasal Cannula Nasal Cannula Nasal Cannula O2 Flow Rate 6.00 2.00 6.00 6.00 09/24/21 09/24/21 09/24/21 09/24/21 03:00 04:00 05:00 06:23 Pulse 109 103 101 91 Resp 22 B/P (MAP) 164/94 148/93 147/97 135/79 Pulse Ox 90 92 93 91 O2 Delivery Nasal Cannula Nasal Cannula Nasal Cannula Nasal Cannula O2 Flow Rate 6.00 6.00 6.00 6.00 09/24/21 09/24/21 09/24/21 09/24/21 08:59 11:23 13:49 13:50 Temp 36.6 Pulse 91 Resp 20 B/P (MAP) 125/80 (95) Pulse Ox 90 88 91 O2 Delivery High Flow N/C High Flow N/C High Flow N/C Vapotherm O2 Flow Rate 6.00 10.00 10.00 40.00 FiO2 70 Capillary Refill : Less Than 3 Seconds General Appearance: WD/WN, mild distress (with activity) HEENT: PERRL/EOMI Neck: non-tender, full range of motion, supple Respiratory: chest non-tender, no respiratory distress, no accessory muscle use, wheezing, expiration Cardiovascular: normal peripheral pulses, regular rate, rhythm, no murmur Gastrointestinal: normal bowel sounds, non tender, soft Back: no CVA tenderness, no vertebral tenderness Extremities: normal range of motion, non-tender, normal inspection, no pedal edema, no calf tenderness, normal capillary refill Neurologic/Psychiatric: insurance job titles II-XII nml as tested, no motor/sensory deficits, alert, normal mood/affect, oriented x 3 Skin: normal color, warm/dry Lymphatic: no adenopathy Assessment/Plan Assessment/Plan Admission Status: Inpatient Order (span 2 midnights) Reason for Inpatient Admission: Increase oxygen requirement and high risk for decompensation (1) Pneumonia due to COVID-19 virus Status: Acute Assessment & Plan: - Steroids, Zosyn, MAT protocol, will titrate oxygen as tolerated (2) Acute and chronic respiratory failure with hypoxia Status: Acute (3) COPD with exacerbation Status: Acute (4) Essential hypertension Status: Chronic Assessment & Plan: - Restarted home meds (5) Hypokalemia Status: Acute Assessment & Plan: - Replaced in ER, repeat BMP in AM with Mag level VENESSA DUMONT MD Sep 24, 2021 17:15
[2021-09-24] MEDS: ACETAMINOPHEN 500 MG TAB (TYLENOL) PO PRN (17:42)
[2021-09-24 19:26] VITALS: BP 128/83
[2021-09-24] MEDS ORDERED: NON-FORMULARY MEDICATION 1 EA EA (Mirtazapine 30 MG) PO SCH (21:00)
[2021-09-24] MEDS ORDERED: NON-FORMULARY MEDICATION 1 EA EA (Fluoxetine HCl 40 MG) PO SCH (21:00)
[2021-09-24] MEDS ORDERED: RX-CYCLOBENZAPRINE 10 MG (FLEXERIL) TAB PPK#3 PO SCH (21:00)
[2021-09-24] MEDS: MIRTAZAPINE 15 MG (REMERON) TAB PO SCH (21:37)
[2021-09-24] MEDS: GABAPENTIN 300 MG (NEURONTIN) CAP PO SCH (21:37)
[2021-09-24] MEDS: CLOPIDOGREL 75 MG (PLAVIX) TABLET PO SCH (21:37)
[2021-09-24] MEDS: FLUoxetine HCL 20 MG (PROzac) CAP PO SCH (21:38)
[2021-09-24] MEDS: GABAPENTIN 400 MG (NEURONTIN) CAP PO SCH (21:38)
[2021-09-24] MEDS: IBUPROFEN TABLET 200 MG TAB PO PRN (21:49)
[2021-09-24] MEDS: RT-ALBUTEROL HFA 8.5 GM INHALER IH SCH ×2 (22:13)
[2021-09-24 23:20] VITALS: BP 133/75
[2021-09-25] MEDS: PIPERACILLIN/TAZO 4.5 GM/NS 100 ML IV SCH ×6 (04:55→20:49)
[2021-09-25 04:58] VITALS: BP 136/87
[2021-09-25 06:22] LABS: BASOPHILS % (AUTO) 0 % (0-10); EOSINOPHILS % (AUTO) 0 % (0-10); HEMATOCRIT 42 % (35-52); HEMOGLOBIN 13.2 g/dL (11.5-16.0); LYMPHOCYTES # (AUTO) 0.6 10^3/uL (1.0-4.0); LYMPHOCYTES % (AUTO) 7 % (12-44); MEAN CORPUSCULAR HEMOGLOBIN 29 pg (25-34); MEAN CORPUSCULAR HGB CONC 31 g/dL (32-36); MEAN CORPUSCULAR VOLUME 94 fL (80-99); MEAN PLATELET VOLUME 11.1 fL (9.0-12.2); MONOCYTES # (AUTO) 0.4 10^3/uL (0.0-1.0); MONOCYTES % (AUTO) 5 % (0-12); NEUTROPHILS # (AUTO) 7.8 10^3/uL (1.8-7.8); NEUTROPHILS % (AUTO) 88 % (42-75); PLATELET COUNT 171 10^3/uL (130-400); WHITE BLOOD COUNT 8.9 10^3/uL (4.3-11.0)
[2021-09-25 06:35] LABS: ALBUMIN 3.3 GM/DL (3.2-4.5); POTASSIUM 3.5 MMOL/L (3.6-5.0)
[2021-09-25 06:36] LABS: CALCIUM 8.5 MG/DL (8.5-10.1)
[2021-09-25 06:37] LABS: TOTAL PROTEIN 6.6 GM/DL (6.4-8.2)
[2021-09-25 06:39] LABS: BILIRUBIN,TOTAL 0.4 MG/DL (0.1-1.0)
[2021-09-25 06:41] LABS: CREATININE SERUM 0.84 MG/DL (0.60-1.30)
[2021-09-25 06:44] LABS: MAGNESIUM 2.2 MG/DL (1.6-2.4)
[2021-09-25 07:24] VITALS: BP 137/82
[2021-09-25] MEDS: UMECLIDINIUM BROMIDE (INCRUSE ELLIPTA) 7'S IH SCH (07:38)
[2021-09-25] MEDS: RT-ALBUTEROL HFA 8.5 GM INHALER IH SCH ×3 (07:38→22:50)
[2021-09-25] MEDS: GABAPENTIN 400 MG (NEURONTIN) CAP PO SCH ×3 (09:19→20:50)
[2021-09-25] MEDS: FLUoxetine HCL 20 MG (PROzac) CAP PO SCH ×2 (09:19→20:50)
[2021-09-25] MEDS: GABAPENTIN 300 MG (NEURONTIN) CAP PO SCH ×3 (09:19→20:50)
[2021-09-25] MEDS: NS IV 1000 ML 1,000 ML IV SCH (09:20)
[2021-09-25 12:20] VITALS: BP 141/84
--- NOTE | 2021-09-25 13:42 | Progress Note - Hospitalist ---
Subjective HPI/CC On Admission Date Seen by Provider: Sep 25, 2021 Time Seen by Provider: 10:00 Patient denies shortness of breath at rest and extremely fatigued reporting chest pain with coughing. She reports that she has received codeine with cough syrup in the emergency room which has been of more benefit than anything else from a pain and cough standpoint. She denies any problems with the medication. Cough is nonproductive. Focused Exam Lactate Level 09/24/21 02:05: Lactic Acid Level 1.39 Objective Exam Vital Signs Vital Signs Date Time Temp Pulse Resp B/P (MAP) Pulse Ox O2 Delivery O2 Flow Rate FiO2 09/25/21 12:20 35.6 87 20 141/84 (103) 93 Vapotherm 35.00 75.00 09/25/21 08:00 75 Capillary Refill : Less Than 3 Seconds General Appearance: No Apparent Distress, Obese Respiratory: No Accessory Muscle Use, Other (Tachypneic with coarse bilateral breath sounds no wheezing few basilar fine sounding rales.) Cardiovascular: Regular Rate, Rhythm, No Edema, No Gallop, No JVD, No Murmur, Normal Peripheral Pulses Extremity: Normal Capillary Refill, Normal Inspection, Normal Range of Motion, Non Tender, No Calf Tenderness, No Pedal Edema Results/Procedures Lab Laboratory Tests 09/25/21 06:00 Patient resulted labs reviewed. Assessment/Plan Assessment and Plan Assess & Plan/Chief Complaint Assessment/Plan Admission Status: Inpatient Order (span 2 midnights) Reason for Inpatient Admission: Increase oxygen requirement and high risk for decompensation (1) Pneumonia due to COVID-19 virus Status: Acute Assessment & Plan: - Steroids, Zosyn, MAT protocol, will titrate oxygen as tolerated 09/25: Requiring high flow oxygenation with stable oxygen saturations overnight no further decompensation although status still tenuous. Continue above. (2) Acute and chronic respiratory failure with hypoxia Status: Acute (3) COPD with exacerbation Status: Acute (4) Essential hypertension Status: Chronic Assessment & Plan: - Restarted home meds (5) Hypokalemia Status: Acute Assessment & Plan: - Replaced in ER, repeat BMP in AM with [facility] level Critical Care Critically Ill Patient NEHA STEPHENS MD Sep 25, 2021 13:42
[2021-09-25 15:19] VITALS: BP 139/83
[2021-09-25] MEDS: PROMETHAZINE/ CODEINE SYRUP 5 ML UDC PO PRN ×2 (15:24→21:01)
[2021-09-25 20:00] VITALS: BP 129/70
[2021-09-25] MEDS: MIRTAZAPINE 15 MG (REMERON) TAB PO SCH (20:50)
[2021-09-25] MEDS: CLOPIDOGREL 75 MG (PLAVIX) TABLET PO SCH (20:50)
[2021-09-25 23:20] VITALS: BP 137/82
[2021-09-26] MEDS: ACETAMINOPHEN 500 MG TAB (TYLENOL) PO PRN ×2 (00:16→09:46)
[2021-09-26] MEDS: PIPERACILLIN/TAZO 4.5 GM/NS 100 ML IV SCH ×6 (03:39→20:20)
[2021-09-26 03:40] VITALS: BP 122/86
[2021-09-26 07:29] VITALS: BP 151/87
[2021-09-26] MEDS: UMECLIDINIUM BROMIDE (INCRUSE ELLIPTA) 7'S IH SCH (07:31)
[2021-09-26] MEDS: RT-ALBUTEROL HFA 8.5 GM INHALER IH SCH ×3 (07:31→21:51)
[2021-09-26] MEDS: GABAPENTIN 300 MG (NEURONTIN) CAP PO SCH ×3 (08:49→20:19)
[2021-09-26] MEDS: GABAPENTIN 400 MG (NEURONTIN) CAP PO SCH ×3 (08:49→20:25)
[2021-09-26] MEDS: NS IV 1000 ML 1,000 ML IV SCH (08:50)
[2021-09-26] MEDS: FLUoxetine HCL 20 MG (PROzac) CAP PO SCH ×2 (08:50→20:25)
[2021-09-26] MEDS: PROMETHAZINE/ CODEINE SYRUP 5 ML UDC PO PRN ×4 (08:57→23:11)
[2021-09-26] MEDS: IBUPROFEN TABLET 200 MG TAB PO PRN ×2 (08:57→20:19)
[2021-09-26 11:16] VITALS: BP 128/86
--- NOTE | 2021-09-26 12:24 | Progress Note - Hospitalist ---
Subjective HPI/CC On Admission Date Seen by Provider: Sep 26, 2021 Time Seen by Provider: 11:46 Patient denies shortness of breath at rest and extremely fatigued reporting chest pain with coughing. She reports that she has received codeine with cough syrup in the emergency room which has been of more benefit than anything else from a pain and cough standpoint. She denies any problems with the medication. Cough is nonproductive. Subjective/Events-last exam Patient complains of mild headache aggravated by cough better since initiation of codeine. She asked for something stronger but was told there would be no additional narcotics as long as she was on codeine which is what has worked best for her for cough and her bigger issue right now considering that her headache is not severe. No shortness of breath at rest extremely weak but oxygen requirement stable compared to yesterday on Vapotherm. Focused Exam Lactate Level 09/24/21 02:05: Lactic Acid Level 1.39 Objective Exam Vital Signs Vital Signs Date Time Temp Pulse Resp B/P (MAP) Pulse Ox O2 Delivery O2 Flow Rate FiO2 09/26/21 11:16 36.6 79 20 128/86 (100) 92 Vapotherm 35.00 75.00 09/26/21 08:00 75 Capillary Refill : Less Than 3 Seconds General Appearance: No Apparent Distress, Anxious Respiratory: No Accessory Muscle Use, No Respiratory Distress, Other (Fine rales to the mid lung castillo bilaterally no wheezing noted no rhonchi.Unchanged from yesterday) Cardiovascular: Regular Rate, Rhythm, No Murmur Extremity: Normal Inspection, Normal Range of Motion, Non Tender, No Calf Tenderness, No Pedal Edema Results/Procedures Lab Patient resulted labs reviewed. Assessment/Plan Assessment and Plan Assess & Plan/Chief Complaint Assessment/Plan Admission Status: Inpatient Order (span 2 midnights) Reason for Inpatient Admission: Increase oxygen requirement and high risk for decompensation (1) Pneumonia due to COVID-19 virus Status: Acute Assessment & Plan: - Steroids, Zosyn, MAT protocol, will titrate oxygen as tolerated 09/25: Requiring high flow oxygenation with stable oxygen saturations overnight no further decompensation although status still tenuous. Continue above. 09/26 oxygen requirement stable no new problems continue Decadron and Vapotherm. (2) Acute and chronic respiratory failure with hypoxia Status: Acute (3) COPD with exacerbation Status: Acute (4) Essential hypertension Status: Chronic Assessment & Plan: - Restarted home meds (5) Hypokalemia Status: Acute Assessment & Plan: - Replaced in ER, repeat BMP in AM with [facility] level Critical Care Critically Ill Patient NEHA STEPHENS MD Sep 26, 2021 12:24
[2021-09-26 16:06] VITALS: BP 125/82
[2021-09-26 19:45] VITALS: BP 138/84
[2021-09-26] MEDS: CLOPIDOGREL 75 MG (PLAVIX) TABLET PO SCH (20:19)
[2021-09-26] MEDS: MIRTAZAPINE 15 MG (REMERON) TAB PO SCH (20:20)
[2021-09-26 23:06] VITALS: BP 131/79
[2021-09-27] VITALS (8 sets, daily range): BP systolic 122–184; BP diastolic 85–103
[2021-09-27] MEDS: PROMETHAZINE/ CODEINE SYRUP 5 ML UDC PO PRN ×5 (03:37→23:57)
[2021-09-27] MEDS: PIPERACILLIN/TAZO 4.5 GM/NS 100 ML IV SCH ×4 (03:37→13:09)
[2021-09-27 05:36] LABS: BASOPHILS % (AUTO) 0 % (0-10); EOSINOPHILS % (AUTO) 0 % (0-10); HEMATOCRIT 40 % (35-52); HEMOGLOBIN 12.6 g/dL (11.5-16.0); LYMPHOCYTES # (AUTO) 0.6 10^3/uL (1.0-4.0); LYMPHOCYTES % (AUTO) 8 % (12-44); MEAN CORPUSCULAR HEMOGLOBIN 30 pg (25-34); MEAN CORPUSCULAR HGB CONC 31 g/dL (32-36); MEAN CORPUSCULAR VOLUME 95 fL (80-99); MEAN PLATELET VOLUME 10.7 fL (9.0-12.2); MONOCYTES # (AUTO) 0.4 10^3/uL (0.0-1.0); MONOCYTES % (AUTO) 5 % (0-12); NEUTROPHILS # (AUTO) 6.5 10^3/uL (1.8-7.8); NEUTROPHILS % (AUTO) 85 % (42-75); PLATELET COUNT 198 10^3/uL (130-400); WHITE BLOOD COUNT 7.6 10^3/uL (4.3-11.0)
[2021-09-27 05:53] LABS: POTASSIUM 3.4 MMOL/L (3.6-5.0)
[2021-09-27 05:54] LABS: CALCIUM 8.4 MG/DL (8.5-10.1)
[2021-09-27 05:59] LABS: CREATININE SERUM 0.77 MG/DL (0.60-1.30)
[2021-09-27] MEDS: RT-ALBUTEROL HFA 8.5 GM INHALER IH SCH ×3 (06:54→21:50)
[2021-09-27] MEDS ORDERED: KCL 20 MEQ TAB (K-DUR) PO NR (08:00)
[2021-09-27] MEDS: GABAPENTIN 300 MG (NEURONTIN) CAP PO SCH ×3 (09:15→19:57)
[2021-09-27] MEDS: ENOXAPARIN 40 MG/0.4 ML (LOVENOX) SYR SQ SCH (09:15)
[2021-09-27] MEDS: FLUoxetine HCL 20 MG (PROzac) CAP PO SCH ×2 (09:16→19:58)
[2021-09-27] MEDS: GABAPENTIN 400 MG (NEURONTIN) CAP PO SCH ×3 (09:16→19:57)
[2021-09-27] MEDS: UMECLIDINIUM BROMIDE (INCRUSE ELLIPTA) 7'S IH SCH (09:17)
[2021-09-27] MEDS: NS IV 1000 ML 1,000 ML IV SCH (09:17)
[2021-09-27] MEDS: IBUPROFEN TABLET 200 MG TAB PO PRN (11:39)
[2021-09-27] MEDS: ACETAMINOPHEN 500 MG TAB (TYLENOL) PO PRN (11:44)
[2021-09-27] MEDS ORDERED: RT-ALBUTEROL HFA 8.5 GM INHALER IH PRN (15:45)
--- NOTE | 2021-09-27 15:55 | Progress Note ---
Subjective Subjective/Events-last exam Seen at 1045 am. Had need for FiO2 increase from 75% to 100% on vapotherm this morning, is feeling anxious. She states she thinks she would want intubated if needed, but she also wouldn't want to be intubated if she couldn't get off the ventilator, discussed difficulty in predicting for sure and encouraged her to continue considering her goals. Objective Exam Last Set of Vital Signs Vital Signs Date Time Temp Pulse Resp B/P (MAP) Pulse Ox O2 Delivery O2 Flow Rate FiO2 09/27/21 15:35 35.9 94 95 100 09/27/21 15:13 20 123/85 (98) Vapotherm 40.00 100.00 Capillary Refill : Less Than 3 Seconds I&O Intake and Output 09/27/21 00:00 Intake Total 2160 ml Output Total 800 ml Balance 1360 ml Intake Oral 2160 ml Output Urine Total 800 ml # Voids 1 General: Alert, Mild Distress Lungs: Other (ronchi) Heart: Regular Rate, No Murmurs Abdomen: Normal Bowel Sounds, Soft Neuro: Normal Speech Psych/Mental Status: Mood NL Results/Procedures Lab Laboratory Tests 09/27/21 05:10: White Blood Count 7.6, Red Blood Count 4.25, Hemoglobin 12.6, Hematocrit 40, Mean Corpuscular Volume 95, Mean Corpuscular Hemoglobin 30, Mean Corpuscular Hemoglobin Concent 31L, Red Cell Distribution Width 15.0H, Platelet Count 198, Mean Platelet Volume 10.7, Immature Granulocyte % (Auto) 2, Neutrophils (%) (Auto) 85H, Lymphocytes (%) (Auto) 8L, Monocytes (%) (Auto) 5, Eosinophils (%) (Auto) 0, Basophils (%) (Auto) 0, Neutrophils # (Auto) 6.5, Lymphocytes # (Auto) 0.6L, Monocytes # (Auto) 0.4, Eosinophils # (Auto) 0.0, Basophils # (Auto) 0.0, Immature Granulocyte # (Auto) 0.1, Sodium Level 142, Potassium Level 3.4L, Chloride Level 105, Carbon Dioxide Level 25, Anion Gap 12, Blood Urea Nitrogen 26H, Creatinine 0.77, Estimat Glomerular Filtration Rate 79, BUN/Creatinine Ratio 34, Glucose Level 127H, Calcium Level 8.4L Microbiology 09/24/21 Blood Culture - Preliminary, Resulted No growth Assessment/Plan Assessment/Plan (1) Pneumonia due to COVID-19 virus Status: Acute Assessment & Plan: - Steroids, Zosyn, MAT protocol started on admit, elevated D dimer, negative CTA of chest for PE. Symptom onset prior to 09/16, outside window for Remdesevir 09/27- worsening hypoxia, check CRP, consider Actemra if markedly elevated. Continue dexamethasone, d/c zosyn, no clear evidence of bacterial infection. (2) Acute and chronic respiratory failure with hypoxia Status: Acute (3) COPD with exacerbation Status: Acute (4) Essential hypertension Status: Chronic Assessment & Plan: - Restarted home meds (5) Hypokalemia Status: Acute Assessment & Plan: - Replace and follow (6) Esophageal mass Status: Chronic Assessment & Plan: Persistent esophageal mass seen on chest CT, needs EGD if not done prior, will review chart further. (7) DVT prophylaxis Assessment & Plan: Enoxaparin ROSANNE DUNN MD Sep 27, 2021 15:55
[2021-09-27] MEDS ORDERED: TOCILIZUMAB INJECTION (NON-FOR 800 MG in NS (IVPB) 60 ML IV ONE (17:00)
[2021-09-27] MEDS: CLOPIDOGREL 75 MG (PLAVIX) TABLET PO SCH (19:57)
[2021-09-27] MEDS: MIRTAZAPINE 15 MG (REMERON) TAB PO SCH (19:57)
[2021-09-28] MEDS: RT-ALBUTEROL HFA 8.5 GM INHALER IH SCH ×6 (02:41→22:46)
[2021-09-28 04:09] VITALS: BP 155/92
[2021-09-28 06:46] LABS: ALBUMIN 3.1 GM/DL (3.2-4.5); POTASSIUM 3.2 MMOL/L (3.6-5.0)
[2021-09-28 06:47] LABS: CALCIUM 8.1 MG/DL (8.5-10.1)
[2021-09-28 06:50] LABS: BILIRUBIN,TOTAL 0.4 MG/DL (0.1-1.0)
[2021-09-28 06:52] LABS: CREATININE SERUM 0.63 MG/DL (0.60-1.30)
[2021-09-28] MEDS: UMECLIDINIUM BROMIDE (INCRUSE ELLIPTA) 7'S IH SCH (07:15)
[2021-09-28] MEDS: GABAPENTIN 400 MG (NEURONTIN) CAP PO SCH ×3 (08:37→20:12)
[2021-09-28] MEDS: GABAPENTIN 300 MG (NEURONTIN) CAP PO SCH ×3 (08:37→20:12)
[2021-09-28] MEDS: ENOXAPARIN 40 MG/0.4 ML (LOVENOX) SYR SQ SCH (08:37)
[2021-09-28] MEDS: FLUoxetine HCL 20 MG (PROzac) CAP PO SCH ×2 (08:37→20:12)
[2021-09-28] MEDS: NS IV 1000 ML 1,000 ML IV SCH (08:39)
[2021-09-28] MEDS: PROMETHAZINE/ CODEINE SYRUP 5 ML UDC PO PRN ×3 (08:42→20:32)
[2021-09-28] MEDS ORDERED: lisINopril 20 MG (PRINIVIL) TABLET PO NR (10:30)
[2021-09-28 11:25] VITALS: BP 168/103
[2021-09-28] MEDS: POTASSIUM CL 10MEQ/50ML IVPB 50 ML IV SCH ×3 (11:36→14:15)
[2021-09-28 14:08] VITALS: BP 168/103
[2021-09-28 16:00] VITALS: BP 127/84
[2021-09-28 19:17] VITALS: BP 171/99
[2021-09-28] MEDS: MIRTAZAPINE 15 MG (REMERON) TAB PO SCH (20:12)
[2021-09-28] MEDS: CLOPIDOGREL 75 MG (PLAVIX) TABLET PO SCH (20:12)
[2021-09-28] MEDS: ACETAMINOPHEN 500 MG TAB (TYLENOL) PO PRN (20:12)
--- NOTE | 2021-09-28 20:45 | Progress Note ---
Subjective Subjective/Events-last exam Pt seen at 1225 pm. States she is feeling a little better today. Her back hurts from the bed. She used to take hydrocodone, but states her doctor stopped it. Objective Exam Last Set of Vital Signs Vital Signs Date Time Temp Pulse Resp B/P (MAP) Pulse Ox O2 Delivery O2 Flow Rate FiO2 09/28/21 19:22 98 20 98 80.00 09/28/21 19:17 36.0 171/99 (123) NIV Bilevel 09/28/21 10:16 90 Capillary Refill : Less Than 3 Seconds I&O Intake and Output 09/28/21 00:00 Intake Total 6220 ml Output Total 900 ml Balance 5320 ml Intake Oral 1320 ml IV Total 4900 ml Output Urine Total 900 ml # Voids 1 General: Alert, No Acute Distress Lungs: Other (wheezing, ronchi throughout) Heart: Regular Rate, No Murmurs Abdomen: Normal Bowel Sounds, Soft Extremities: No Edema Neuro: Normal Speech Psych/Mental Status: Mood NL Results/Procedures Lab Laboratory Tests 09/28/21 06:13: Sodium Level 144, Potassium Level 3.2L, Chloride Level 105, Carbon Dioxide Level 28, Anion Gap 11, Blood Urea Nitrogen 24H, Creatinine 0.63, Estimat Glomerular Filtration Rate 99, BUN/Creatinine Ratio 38, Glucose Level 89, Calcium Level 8.1L, Corrected Calcium 8.8, Total Bilirubin 0.4, Aspartate Amino Transf (AST/SGOT) 22, Alanine Aminotransferase (ALT/SGPT) 26, Alkaline Phosphatase 130, Total Protein 6.0L, Albumin 3.1L Microbiology 09/24/21 Blood Culture - Preliminary, Resulted No growth Assessment/Plan Assessment/Plan (1) Pneumonia due to COVID-19 virus Status: Acute Assessment & Plan: - Steroids, Zosyn, MAT protocol started on admit, elevated D dimer, negative CTA of chest for PE. Symptom onset prior to 09/16, outside window for Remdesevir 09/27- worsening hypoxia, check CRP, consider Actemra if markedly elevated. Continue dexamethasone, d/c zosyn, no clear evidence of bacterial infection. 09/28- s/p Actemra, continue dexamethasone. FiO2 requirement decreased to 90% this am. (2) Acute and chronic respiratory failure with hypoxia Status: Acute (3) COPD with exacerbation Status: Acute (4) Essential hypertension Status: Chronic Assessment & Plan: - Restarted home meds 09/28 persistently high on metoprolol, add lisinopril (5) Hypokalemia Status: Acute Assessment & Plan: - Replace and follow (6) Esophageal mass Status: Chronic Assessment & Plan: Persistent esophageal mass seen on chest CT, needs EGD if not done prior, will review chart further. (7) DVT prophylaxis Assessment & Plan: Enoxaparin ROSANNE DUNN MD Sep 28, 2021 20:45
[2021-09-29] VITALS (7 sets, daily range): BP systolic 165–204; BP diastolic 98–143
[2021-09-29] MEDS: PROMETHAZINE/ CODEINE SYRUP 5 ML UDC PO PRN ×4 (04:29→20:44)
[2021-09-29] MEDS: RT-ALBUTEROL HFA 8.5 GM INHALER IH SCH ×6 (05:18→22:41)
[2021-09-29 06:02] LABS: HEMATOCRIT 45 % (35-52); HEMOGLOBIN 13.9 g/dL (11.5-16.0); MEAN CORPUSCULAR HEMOGLOBIN 29 pg (25-34); MEAN CORPUSCULAR HGB CONC 31 g/dL (32-36); MEAN CORPUSCULAR VOLUME 95 fL (80-99); MEAN PLATELET VOLUME 10.5 fL (9.0-12.2); PLATELET COUNT 191 10^3/uL (130-400); WHITE BLOOD COUNT 6.4 10^3/uL (4.3-11.0)
[2021-09-29 06:13] LABS: POTASSIUM 3.2 MMOL/L (3.6-5.0)
[2021-09-29 06:15] LABS: CALCIUM 8.1 MG/DL (8.5-10.1)
[2021-09-29 06:19] LABS: CREATININE SERUM 0.67 MG/DL (0.60-1.30)
[2021-09-29] MEDS: POTASSIUM CL 10MEQ/50ML IVPB 50 ML IV SCH ×2 (07:03→08:20)
[2021-09-29] MEDS: UMECLIDINIUM BROMIDE (INCRUSE ELLIPTA) 7'S IH SCH (07:26)
[2021-09-29] MEDS: ENOXAPARIN 40 MG/0.4 ML (LOVENOX) SYR SQ SCH (08:21)
[2021-09-29] MEDS: CYCLOBENZAPRINE 10 MG (FLEXERIL) TAB PO PRN ×2 (08:22→20:44)
[2021-09-29] MEDS: GABAPENTIN 400 MG (NEURONTIN) CAP PO SCH ×3 (08:22→20:44)
[2021-09-29] MEDS: FLUoxetine HCL 20 MG (PROzac) CAP PO SCH ×2 (08:22→20:44)
[2021-09-29] MEDS: ACETAMINOPHEN 500 MG TAB (TYLENOL) PO PRN (08:22)
[2021-09-29] MEDS: GABAPENTIN 300 MG (NEURONTIN) CAP PO SCH ×3 (08:23→20:44)
[2021-09-29] MEDS: NS IV 1000 ML 1,000 ML IV SCH (08:23)
[2021-09-29] MEDS ORDERED: lisINopril 20 MG (PRINIVIL) TABLET PO SCH (09:00)
[2021-09-29] MEDS ORDERED: LOPERAMIDE 2 MG (IMODIUM) TABLET PO PRN (11:15)
--- NOTE | 2021-09-29 11:16 | Progress Note ---
Subjective Subjective/Events-last exam Afebrile, required bipap, states she is feeling okay, does think bipap helped, but it makes her very anxious. Also having some diarrhea and requesting Immodium. Objective Exam Last Set of Vital Signs Vital Signs Date Time Temp Pulse Resp B/P (MAP) Pulse Ox O2 Delivery O2 Flow Rate FiO2 09/29/21 10:55 96 30.00 70 09/29/21 08:00 NIV Bilevel 09/29/21 08:00 36.2 103 22 204/132 (156) Capillary Refill : Less Than 3 Seconds I&O Intake and Output 09/29/21 00:00 Intake Total 1510 ml Output Total 950 ml Balance 560 ml Intake Oral 1310 ml IV Total 200 ml Output Urine Total 950 ml # Bowel Movements 1 General: Alert, Mild Distress Lungs: Other (wheezing and ronchi throughout) Heart: Regular Rate, No Murmurs Abdomen: Normal Bowel Sounds, Soft Extremities: No Edema Psych/Mental Status: Mood NL Results/Procedures Lab Laboratory Tests 09/29/21 05:40: White Blood Count 6.4, Red Blood Count 4.75, Hemoglobin 13.9, Hematocrit 45, Mean Corpuscular Volume 95, Mean Corpuscular Hemoglobin 29, Mean Corpuscular Hemoglobin Concent 31L, Red Cell Distribution Width 14.6H, Platelet Count 191, Mean Platelet Volume 10.5, Sodium Level 145, Potassium Level 3.2L, Chloride Level 105, Carbon Dioxide Level 26, Anion Gap 14, Blood Urea Nitrogen 19H, Creatinine 0.67, Estimat Glomerular Filtration Rate 92, BUN/Creatinine Ratio 28, Glucose Level 114H, Calcium Level 8.1L Microbiology 09/24/21 Blood Culture - Preliminary, Resulted No growth Assessment/Plan Assessment/Plan (1) Pneumonia due to COVID-19 virus Status: Acute Assessment & Plan: - Steroids, Zosyn, MAT protocol started on admit, elevated D dimer, negative CTA of chest for PE. Symptom onset prior to 09/16, outside window for Remdesevir 09/27- worsening hypoxia, check CRP, consider Actemra if markedly elevated. Continue dexamethasone, d/c zosyn, no clear evidence of bacterial infection. 09/28- s/p Actemra, continue dexamethasone. FiO2 requirement decreased to 90% th is am. 09/29- required bipap overnight, continue to use as needed (2) Acute and chronic respiratory failure with hypoxia Status: Acute (3) COPD with exacerbation Status: Acute (4) Essential hypertension Status: Chronic Assessment & Plan: - Restarted home meds 09/28 persistently high on metoprolol, add lisinopril 09/29 increase lisinopril to 40 mg daily (5) Hypokalemia Status: Acute Assessment & Plan: - Replace and follow (6) Esophageal mass Status: Chronic Assessment & Plan: Persistent esophageal mass seen on chest CT, needs EGD if not done prior, will review chart further. (7) DVT prophylaxis Assessment & Plan: Enoxaparin ROSANNE DUNN MD Sep 29, 2021 11:16
[2021-09-29] MEDS ORDERED: KCL 20 MEQ TAB (K-DUR) PO ONE (12:00)
[2021-09-29] MEDS ORDERED: lisINopril 20 MG (PRINIVIL) TABLET PO ONE (12:00)
[2021-09-29] MEDS: LORazepam 0.5 MG (ATIVAN) TABLET PO PRN ×2 (12:28→20:44)
[2021-09-29] MEDS ORDERED: cloNIDine 0.1 MG (CATAPRES) TAB PO ONE ×2 (15:45→18:00)
[2021-09-29] MEDS: MIRTAZAPINE 15 MG (REMERON) TAB PO SCH (20:44)
[2021-09-29] MEDS: CLOPIDOGREL 75 MG (PLAVIX) TABLET PO SCH (20:44)
[2021-09-29] MEDS: IBUPROFEN TABLET 200 MG TAB PO PRN (23:34)
[2021-09-29] MEDS: cloNIDine 0.2 MG (CATAPRES) TAB PO PRN (23:40)
[2021-09-30] VITALS (7 sets, daily range): BP systolic 102–142; BP diastolic 63–88
[2021-09-30] MEDS: RT-ALBUTEROL HFA 8.5 GM INHALER IH SCH ×6 (02:54→23:04)
[2021-09-30 06:00] LABS: HEMATOCRIT 45 % (35-52); HEMOGLOBIN 14.4 g/dL (11.5-16.0); MEAN CORPUSCULAR HEMOGLOBIN 29 pg (25-34); MEAN CORPUSCULAR HGB CONC 32 g/dL (32-36); MEAN CORPUSCULAR VOLUME 92 fL (80-99); MEAN PLATELET VOLUME 10.5 fL (9.0-12.2); PLATELET COUNT 198 10^3/uL (130-400); WHITE BLOOD COUNT 9.7 10^3/uL (4.3-11.0)
[2021-09-30 06:24] LABS: POTASSIUM 3.6 MMOL/L (3.6-5.0)
[2021-09-30 06:25] LABS: CALCIUM 8.2 MG/DL (8.5-10.1)
[2021-09-30 06:29] LABS: CREATININE SERUM 0.64 MG/DL (0.60-1.30)
[2021-09-30] MEDS: UMECLIDINIUM BROMIDE (INCRUSE ELLIPTA) 7'S IH SCH (07:36)
[2021-09-30] MEDS: ENOXAPARIN 40 MG/0.4 ML (LOVENOX) SYR SQ SCH (08:38)
[2021-09-30] MEDS: FLUoxetine HCL 20 MG (PROzac) CAP PO SCH ×2 (08:39→20:51)
[2021-09-30] MEDS: lisINopril 40 MG (PRINIVIL) TABLET PO SCH (08:39)
[2021-09-30] MEDS: GABAPENTIN 300 MG (NEURONTIN) CAP PO SCH ×3 (08:39→20:51)
[2021-09-30] MEDS: GABAPENTIN 400 MG (NEURONTIN) CAP PO SCH ×3 (08:39→20:51)
[2021-09-30] MEDS: PROMETHAZINE/ CODEINE SYRUP 5 ML UDC PO PRN ×2 (08:45→13:49)
[2021-09-30] MEDS: NS IV 1000 ML 1,000 ML IV SCH (10:25)
--- NOTE | 2021-09-30 12:23 | Progress Note ---
Subjective Subjective/Events-last exam Having chest pain with coughing, wondering if she can have morphine. Is breathing easier today and on 55% FiO2 down from 90-100% yesterday Objective Exam Last Set of Vital Signs Vital Signs Date Time Temp Pulse Resp B/P (MAP) Pulse Ox O2 Delivery O2 Flow Rate FiO2 09/30/21 11:11 36.1 88 22 138/82 (100) 92 Vapotherm 25.00 45.00 09/30/21 10:35 45 Capillary Refill : Less Than 3 Seconds I&O Intake and Output 09/30/21 00:00 Intake Total 670 ml Output Total 402 ml Balance 268 ml Intake Oral 670 ml Output Urine Total 402 ml # Voids 1 # Bowel Movements 2 General: Alert, No Acute Distress Lungs: Other (ronchi throughout) Heart: Regular Rate, No Murmurs Abdomen: Normal Bowel Sounds, Soft Neuro: Normal Speech Results/Procedures Lab Laboratory Tests 09/30/21 05:30: White Blood Count 9.7, Red Blood Count 4.90, Hemoglobin 14.4, Hematocrit 45, Mean Corpuscular Volume 92, Mean Corpuscular Hemoglobin 29, Mean Corpuscular Hemoglobin Concent 32, Red Cell Distribution Width 14.3, Platelet Count 198, Mean Platelet Volume 10.5, Sodium Level 143, Potassium Level 3.6, Chloride Level 104, Carbon Dioxide Level 26, Anion Gap 13, Blood Urea Nitrogen 15, Creatinine 0.64, Estimat Glomerular Filtration Rate 97, BUN/Creatinine Ratio 23, Glucose Level 113H, Calcium Level 8.2L Microbiology 09/24/21 Blood Culture - Final, Complete No growth Assessment/Plan Assessment/Plan (1) Pneumonia due to COVID-19 virus Status: Acute Assessment & Plan: - Steroids, Zosyn, MAT protocol started on admit, elevated D dimer, negative CTA of chest for PE. Symptom onset prior to 09/16, outside window for Remdesevir 09/27- worsening hypoxia, check CRP, consider Actemra if markedly elevated. Continue dexamethasone, d/c zosyn, no clear evidence of bacterial infection. 09/28- s/p Actemra, continue dexamethasone. FiO2 requirement decreased to 90% this am. 09/29- required bipap overnight, continue to use as needed 09/30- seems to be improving some, tolerating lower FiO2 today, continue to wean as tolerated, remains on dexamethasone and s/p Actemra. (2) Acute and chronic respiratory failure with hypoxia Status: Acute (3) COPD with exacerbation Status: Acute (4) Essential hypertension Status: Chronic Assessment & Plan: - Restarted home meds 09/28 persistently high on metoprolol, add lisinopril 09/29 increase lisinopril to 40 mg daily 09/30 increase home metoprolol to 50 mg daily, continue lisinopril 40 (5) Hypokalemia Status: Acute Assessment & Plan: - Replace and follow (6) Esophageal mass Status: Chronic Assessment & Plan: Persistent esophageal mass seen on chest CT, needs EGD if not done prior, will review chart further. (7) DVT prophylaxis Assessment & Plan: Enoxaparin ROSANNE DUNN MD Sep 30, 2021 12:23
[2021-09-30] MEDS: KETOROLAC 15 MG/ML VIAL IVP PRN ×2 (13:49→20:52)
[2021-09-30] MEDS: MIRTAZAPINE 15 MG (REMERON) TAB PO SCH (20:51)
[2021-09-30] MEDS: CLOPIDOGREL 75 MG (PLAVIX) TABLET PO SCH (20:51)
[2021-09-30] MEDS: meTOproloL SUCCINATE 50 MG (TOPROL XL) TAB PO SCH (20:52)
[2021-10-01] MEDS: RT-ALBUTEROL HFA 8.5 GM INHALER IH SCH ×6 (03:28→22:11)
[2021-10-01 03:55] VITALS: BP 129/84
[2021-10-01] MEDS: KETOROLAC 15 MG/ML VIAL IVP PRN ×3 (05:36→20:34)
[2021-10-01] MEDS: UMECLIDINIUM BROMIDE (INCRUSE ELLIPTA) 7'S IH SCH (07:34)
[2021-10-01 08:02] VITALS: BP 129/90
[2021-10-01] MEDS: GABAPENTIN 400 MG (NEURONTIN) CAP PO SCH ×3 (09:13→20:33)
[2021-10-01] MEDS: GABAPENTIN 300 MG (NEURONTIN) CAP PO SCH ×3 (09:13→20:33)
[2021-10-01] MEDS: ENOXAPARIN 40 MG/0.4 ML (LOVENOX) SYR SQ SCH (09:13)
[2021-10-01] MEDS: lisINopril 40 MG (PRINIVIL) TABLET PO SCH (09:14)
[2021-10-01] MEDS: FLUoxetine HCL 20 MG (PROzac) CAP PO SCH ×2 (09:14→20:33)
[2021-10-01] MEDS: NS IV 1000 ML 1,000 ML IV SCH (09:16)
[2021-10-01] MEDS: LORazepam 0.5 MG (ATIVAN) TABLET PO PRN ×2 (09:22→17:05)
[2021-10-01 11:43] VITALS: BP 119/76
--- NOTE | 2021-10-01 12:13 | Progress Note ---
Subjective Subjective/Events-last exam Pt states she is feeling pretty well today, starting to wonder when she'll be able to go home. On vapotherm at 25 liters flow and 45% FiO2 at time of my exam. Objective Exam Last Set of Vital Signs Vital Signs Date Time Temp Pulse Resp B/P (MAP) Pulse Ox O2 Delivery O2 Flow Rate FiO2 10/01/21 11:43 37.0 99 18 119/76 (90) 92 High Flow N/C 5.00 10/01/21 11:21 40 Capillary Refill : Less Than 3 Seconds I&O Intake and Output 10/01/21 00:00 Intake Total 1050 ml Output Total 625 ml Balance 425 ml Intake Oral 1050 ml Output Urine Total 625 ml # Voids 2 General: Alert, No Acute Distress Lungs: Other (mildly decreased air movement throughout) Heart: Regular Rate, No Murmurs Psych/Mental Status: Mood NL Results/Procedures Lab Microbiology 09/24/21 Blood Culture - Final, Complete No growth Assessment/Plan Assessment/Plan (1) Pneumonia due to COVID-19 virus Status: Acute Assessment & Plan: - Steroids, Zosyn, MAT protocol started on admit, elevated D dimer, negative CTA of chest for PE. Symptom onset prior to 09/16, outside window for Remdesevir 09/27- worsening hypoxia, check CRP, consider Actemra if markedly elevated. Continue dexamethasone, d/c zosyn, no clear evidence of bacterial infection. 09/28- s/p Actemra, continue dexamethasone. FiO2 requirement decreased to 90% this am. 09/29- required bipap overnight, continue to use as needed 09/30- seems to be improving some, tolerating lower FiO2 today, continue to wean as tolerated, remains on dexamethasone and s/p Actemra. 10/01 continued improvement, weaning oxygen as tolerated. On dexamethasone day 7 (2) Acute and chronic respiratory failure with hypoxia Status: Acute (3) COPD with exacerbation Status: Acute Assessment & Plan: 10/01 Wheezing improved today (4) Essential hypertension Status: Chronic Assessment & Plan: - Restarted home meds 09/28 persistently high on metoprolol, add lisinopril 09/29 increase lisinopril to 40 mg daily 09/30 increase home metoprolol to 50 mg daily, continue lisinopril 40 (5) Hypokalemia Status: Acute Assessment & Plan: - Replace and follow (6) Esophageal mass Status: Chronic Assessment & Plan: Persistent esophageal mass seen on chest CT, needs EGD if not done prior, will review chart further. (7) DVT prophylaxis Assessment & Plan: Enoxaparin ROSANNE DUNN MD Oct 01, 2021 12:12
[2021-10-01] MEDS: PROMETHAZINE/ CODEINE SYRUP 5 ML UDC PO PRN ×2 (13:15→17:05)
[2021-10-01 15:28] VITALS: BP 119/76
[2021-10-01 17:00] VITALS: BP 131/84
[2021-10-01 19:59] VITALS: BP 137/77
[2021-10-01] MEDS: meTOproloL SUCCINATE 50 MG (TOPROL XL) TAB PO SCH (20:33)
[2021-10-01] MEDS: CLOPIDOGREL 75 MG (PLAVIX) TABLET PO SCH (20:33)
[2021-10-01] MEDS: MIRTAZAPINE 15 MG (REMERON) TAB PO SCH (20:33)
[2021-10-02] VITALS (7 sets, daily range): BP systolic 111–136; BP diastolic 72–85
[2021-10-02] MEDS: RT-ALBUTEROL HFA 8.5 GM INHALER IH SCH ×5 (02:57→21:36)
[2021-10-02] MEDS: KETOROLAC 15 MG/ML VIAL IVP PRN ×4 (04:22→23:10)
[2021-10-02 07:30] LABS: HEMATOCRIT 39 % (35-52); HEMOGLOBIN 12.3 g/dL (11.5-16.0); MEAN CORPUSCULAR HEMOGLOBIN 30 pg (25-34); MEAN CORPUSCULAR HGB CONC 32 g/dL (32-36); MEAN CORPUSCULAR VOLUME 93 fL (80-99); MEAN PLATELET VOLUME 10.9 fL (9.0-12.2); PLATELET COUNT 153 10^3/uL (130-400); WHITE BLOOD COUNT 9.4 10^3/uL (4.3-11.0)
[2021-10-02 07:49] LABS: CALCIUM 8.3 MG/DL (8.5-10.1); CREATININE SERUM 0.73 MG/DL (0.60-1.30); POTASSIUM 3.5 MMOL/L (3.6-5.0)
[2021-10-02] MEDS: UMECLIDINIUM BROMIDE (INCRUSE ELLIPTA) 7'S IH SCH (08:08)
--- NOTE | 2021-10-02 08:14 | Progress Note - Hospitalist ---
Subjective HPI/CC On Admission Date Seen by Provider: Oct 02, 2021 Time Seen by Provider: 11:30 Patient denies shortness of breath at rest and extremely fatigued reporting chest pain with coughing. She reports that she has received codeine with cough syrup in the emergency room which has been of more benefit than anything else from a pain and cough standpoint. She denies any problems with the medication. Cough is nonproductive. Subjective/Events-last exam Patient doing well On 5 L high flow improved Bowels are moving Eating and drinking Review of Systems General: Fatigue HEENT: Ear Pain Pulmonary: Dyspnea, Cough Neurological: Weakness Objective Exam Vital Signs Vital Signs Date Time Temp Pulse Resp B/P (MAP) Pulse Ox O2 Delivery O2 Flow Rate FiO2 10/02/21 19:54 36.4 79 24 120/76 (91) 94 High Flow N/C 5.00 10/01/21 15:28 40 Capillary Refill : Less Than 3 Seconds General Appearance: No Apparent Distress, WD/WN, Anxious, Chronically ill Respiratory: Lungs Clear, Normal Breath Sounds Cardiovascular: Regular Rate, Rhythm Neurologic/Psychiatric: Alert, Oriented x3 Results/Procedures Lab Laboratory Tests 10/02/21 07:16 Patient resulted labs reviewed. Assessment/Plan Assessment and Plan Assess & Plan/Chief Complaint Assessment: Acute hypoxic respiratory failure COVID-19 pneumonia Exacerbation COPD Esophageal mass on CT scan? Hypertension Plan: Supportive care Vapotherm Critical Care Critically Ill Patient LIZSHARRI TALBERT Oct 02, 2021 08:13
[2021-10-02] MEDS: FLUoxetine HCL 20 MG (PROzac) CAP PO SCH ×2 (09:22→20:39)
[2021-10-02] MEDS: ENOXAPARIN 40 MG/0.4 ML (LOVENOX) SYR SQ SCH (09:23)
[2021-10-02] MEDS: GABAPENTIN 400 MG (NEURONTIN) CAP PO SCH ×3 (09:23→20:39)
[2021-10-02] MEDS: GABAPENTIN 300 MG (NEURONTIN) CAP PO SCH ×3 (09:23→20:39)
[2021-10-02] MEDS: lisINopril 40 MG (PRINIVIL) TABLET PO SCH (09:24)
[2021-10-02] MEDS: NS IV 1000 ML 1,000 ML IV SCH (11:03)
[2021-10-02] MEDS: PROMETHAZINE/ CODEINE SYRUP 5 ML UDC PO PRN ×3 (11:04→21:45)
[2021-10-02] MEDS: LORazepam 0.5 MG (ATIVAN) TABLET PO PRN ×2 (11:04→21:45)
[2021-10-02] MEDS: MIRTAZAPINE 15 MG (REMERON) TAB PO SCH (20:40)
[2021-10-02] MEDS: CLOPIDOGREL 75 MG (PLAVIX) TABLET PO SCH (20:40)
[2021-10-02] MEDS: meTOproloL SUCCINATE 50 MG (TOPROL XL) TAB PO SCH (20:40)
[2021-10-03] MEDS: RT-ALBUTEROL HFA 8.5 GM INHALER IH SCH ×5 (02:48→21:24)
[2021-10-03 03:38] VITALS: BP 135/84
[2021-10-03] MEDS: KETOROLAC 15 MG/ML VIAL IVP PRN ×4 (05:37→23:37)
[2021-10-03] MEDS: ENOXAPARIN 40 MG/0.4 ML (LOVENOX) SYR SQ SCH (08:21)
[2021-10-03] MEDS: LORazepam 0.5 MG (ATIVAN) TABLET PO PRN ×2 (08:21→16:53)
[2021-10-03] MEDS: UMECLIDINIUM BROMIDE (INCRUSE ELLIPTA) 7'S IH SCH (08:21)
[2021-10-03] MEDS: GABAPENTIN 300 MG (NEURONTIN) CAP PO SCH ×3 (08:22→21:21)
[2021-10-03] MEDS: PROMETHAZINE/ CODEINE SYRUP 5 ML UDC PO PRN ×4 (08:22→21:31)
[2021-10-03] MEDS: FLUoxetine HCL 20 MG (PROzac) CAP PO SCH ×2 (08:22→21:21)
[2021-10-03] MEDS: lisINopril 40 MG (PRINIVIL) TABLET PO SCH (08:22)
[2021-10-03] MEDS: GABAPENTIN 400 MG (NEURONTIN) CAP PO SCH ×3 (08:22→21:21)
[2021-10-03 11:00] VITALS: BP 138/93
--- NOTE | 2021-10-03 12:52 | Progress Note - Hospitalist ---
Subjective HPI/CC On Admission Date Seen by Provider: Oct 03, 2021 Time Seen by Provider: 11:00 Patient denies shortness of breath at rest and extremely fatigued reporting chest pain with coughing. She reports that she has received codeine with cough syrup in the emergency room which has been of more benefit than anything else from a pain and cough standpoint. She denies any problems with the medication. Cough is nonproductive. Subjective/Events-last exam Patient doing very well Oxygen requirement decreasing Now 3 L Having some subtle chest pain from cough will monitor Possible discharge soon Review of Systems General: Fatigue, Malaise Pulmonary: Dyspnea, Cough Objective Exam Vital Signs Vital Signs Date Time Temp Pulse Resp B/P (MAP) Pulse Ox O2 Delivery O2 Flow Rate FiO2 10/04/21 03:47 36.6 87 20 187/73 (111) 90 High Flow N/C 3.00 10/01/21 15:28 40 Capillary Refill : Less Than 3 Seconds General Appearance: No Apparent Distress, WD/WN, Chronically ill Respiratory: No Accessory Muscle Use, No Respiratory Distress, Decreased Breath Sounds Cardiovascular: Regular Rate, Rhythm Neurologic/Psychiatric: Alert, Oriented x3 Results/Procedures Lab Laboratory Tests 10/04/21 04:21 Patient resulted labs reviewed. Assessment/Plan Assessment and Plan Assess & Plan/Chief Complaint Assessment: Acute hypoxic respiratory failure COVID-19 pneumonia Exacerbation COPD Esophageal mass on CT scan? Hypertension CAD Plan: Supportive care Vapotherm 10/03/2021: Wean oxygen Monitor closely Discharge soon Critical Care Critically Ill Patient SHARRI HILL DO Oct 03, 2021 12:52
[2021-10-03 15:40] VITALS: BP 149/80
[2021-10-03 19:57] VITALS: BP 154/84
[2021-10-03] MEDS: CLOPIDOGREL 75 MG (PLAVIX) TABLET PO SCH (21:21)
[2021-10-03] MEDS: meTOproloL SUCCINATE 50 MG (TOPROL XL) TAB PO SCH (21:21)
[2021-10-03] MEDS: MIRTAZAPINE 15 MG (REMERON) TAB PO SCH (21:21)
[2021-10-03 23:24] VITALS: BP 159/90
[2021-10-04] VITALS (22 sets, daily range): BP systolic 97–221; BP diastolic 51–116
[2021-10-04] MEDS: RT-ALBUTEROL HFA 8.5 GM INHALER IH SCH ×6 (02:03→22:23)
[2021-10-04] MEDS: CYCLOBENZAPRINE 10 MG (FLEXERIL) TAB PO PRN (03:54)
[2021-10-04] MEDS: cloNIDine 0.2 MG (CATAPRES) TAB PO PRN (03:54)
[2021-10-04] MEDS: LORazepam 0.5 MG (ATIVAN) TABLET PO PRN ×3 (03:54→20:53)
[2021-10-04] MEDS: PROMETHAZINE/ CODEINE SYRUP 5 ML UDC PO PRN ×3 (04:00→20:44)
[2021-10-04 04:29] LABS: BASOPHILS # (AUTO) 0.1 10^3/uL (0.0-0.1); BASOPHILS % (AUTO) 0 % (0-10); EOSINOPHILS % (AUTO) 0 % (0-10); HEMATOCRIT 46 % (35-52); HEMOGLOBIN 14.4 g/dL (11.5-16.0); LYMPHOCYTES # (AUTO) 4.1 10^3/uL (1.0-4.0); LYMPHOCYTES % (AUTO) 15 % (12-44); MEAN CORPUSCULAR HEMOGLOBIN 29 pg (25-34); MEAN CORPUSCULAR HGB CONC 31 g/dL (32-36); MEAN CORPUSCULAR VOLUME 93 fL (80-99); MONOCYTES # (AUTO) 1.1 10^3/uL (0.0-1.0); MONOCYTES % (AUTO) 4 % (0-12); NEUTROPHILS # (AUTO) 20.6 10^3/uL (1.8-7.8); NEUTROPHILS % (AUTO) 77 % (42-75); PLATELET COUNT 250 10^3/uL (130-400); WHITE BLOOD COUNT 26.8 10^3/uL (4.3-11.0)
[2021-10-04] MEDS ORDERED: ASPIRIN 325 MG (5 GR) TABLET ONE (04:37)
[2021-10-04 04:40] LABS: ALBUMIN 3.9 GM/DL (3.2-4.5)
[2021-10-04] MEDS: NITROGLYCERIN 0.4 MG SL TABS BTL 25'S SL PRN ×2 (04:40→10:54)
[2021-10-04 04:41] LABS: POTASSIUM 4.3 MMOL/L (3.6-5.0)
[2021-10-04 04:42] LABS: CALCIUM 8.8 MG/DL (8.5-10.1)
[2021-10-04 04:45] LABS: BILIRUBIN,TOTAL 0.6 MG/DL (0.1-1.0)
[2021-10-04] MEDS ORDERED: ASPIRIN 325 MG (5 GR) TABLET PO ONE (04:45)
[2021-10-04 04:47] LABS: CREATININE SERUM 0.76 MG/DL (0.60-1.30)
[2021-10-04] MEDS: meTOprolol 5 MG/5 ML (LOPRESSOR) VIAL IV SCH ×5 (05:59→23:43)
[2021-10-04] MEDS ORDERED: ENOXAPARIN 100 MG/1 ML (LOVENOX) SYR SC SCH (06:00)
[2021-10-04 06:01] LABS: BAND NEUTROPHILS 2 %; EOSINOPHILS % (MANUAL) 3 %; LYMPHOCYTES % (MANUAL) 9 %; MONOCYTES % (MANUAL) 1 %; NEUTROPHILS % (MANUAL) 84 %
--- NOTE | 2021-10-04 06:13 | Diagnostic Imaging Report ---
INDICATION: Covid patient. Compared 09/24/2021 FINDINGS: Five lobed infiltrates showed mild generalized progression in severity and density. The heart size is stable. Pacemaker device stable. No pneumothorax. IMPRESSION: Worsened five lobed infiltrates. Dictated by: Dictated on workstation # [id number]
[2021-10-04] MEDS: UMECLIDINIUM BROMIDE (INCRUSE ELLIPTA) 7'S IH SCH (06:14)
[2021-10-04] MEDS ORDERED: MIDAZOLAM 5 MG/5 ML (VERSED) VIAL ONE (06:17)
[2021-10-04] MEDS ORDERED: fentaNYL INJ 100 MCG/2 ML AMP ONE (06:17)
[2021-10-04] MEDS ORDERED: HEParin 1000 UNIT/ML (10ML VIAL) FOR BOLUS ONE (06:48)
[2021-10-04] MEDS ORDERED: NS (IVPB) 250 ML ONE (06:52)
[2021-10-04] MEDS ORDERED: niCARdipine 25 MG/10 ML (CARDENE) AMP IV ONE (06:52)
[2021-10-04] MEDS ORDERED: EPTIFIBATIDE BOLUS 20 ML IV ONE (06:55)
[2021-10-04] MEDS ORDERED: meTOprolol 5 MG/5 ML (LOPRESSOR) VIAL ONE ×2 (07:24→07:25)
[2021-10-04] MEDS ORDERED: CLOPIDOGREL 300 MG (PLAVIX) TABLET PO ONE (07:25)
[2021-10-04] MEDS ORDERED: amLODIPine 5 MG (NORVASC) TAB PO ONE (08:00)
[2021-10-04] MEDS ORDERED: PATIENT MAY USE OWN MEDS, ALL PO SCH (08:15)
[2021-10-04] MEDS ORDERED: FUROSEMIDE 40 MG/4 ML INJ (LASIX) IVP ONE (08:15)
--- NOTE | 2021-10-04 08:31 | Consultation-Cardiology ---
HPI-Cardiology Cardiology Consultation: Date of Consultation 10/04/21 Time Seen by a Provider: 06:30 Date of Admission Attending Physician Cheyanne Khan DO Admitting Physician John Wilde MD Consulting Physician ANDRE GODDARD MD, MA, FACP, FACC, FSCAI, CCDS Physician requesting Card consult: Dr Khan Primary hotel sales manager: Dr Rodriguez Primary sandblaster glass: Dr Conn HPI: Chief Complaint: Chest pain 51 woman admitted with COVID-19 and ac resp failure on 09/24/21 who has been having mild intermittent chest discomfort. This am, the discomfort became quite severe. ECG was nondiagnostic, but troponin was found be significantly elevated. asked us see patient in consult. She was still experiencing chest pain and we recommended card cath and possible ad hoc cor intervention. No palp or syncope. Mild leg swelling Review of Systems-Cardiology Review of Systems Constitutional: malaise, tiredness Eyes: No vision change Ears/Nose/Throat: No ear discharge, No nasal drainage, No recent hearing loss Respiratory: As described under HPI Cardiovascular: As described under HPI Gastrointestinal: No diarrhea, No nausea, No vomiting Genitourinary: No dysuria, No hematuria, No urine frequency changes : No Musculoskeletal: back pain (chronic); No joint pain Skin: No rash, No ulcerations Psychiatric/Neurological: No seizure, No focal weakness, No syncope Hematologic: No bleeding abnormalities OTW-Ncuddw-Xggpsv Hx Patient Social History Smoking Status: Current Everyday Smoker 2nd Hand Smoke Exposure: Yes Have you traveled recently?: No Alcohol Use?: No Pt feels they are or have been: No Tobacco type used: Cigarettes Immunizations Up To Date Tetanus Booster (TDap): Unknown Date of Pneumonia Vaccine: Aug 14, 2016 Date of Influenza Vaccine: Jul 15, 2019 Past Medical History PMH As described under Assessment. Family Medical History Family Medical History: Does not provide fam h/o early CAD or SCD Allergies and Home Medications Allergies Coded Allergies: aspirin (Verified Allergy, Unknown, 03/07/19) latex (Verified Allergy, Unknown, 09/16/19) Patient Home Medication List Home Medication List Reviewed: Yes Acetaminophen (Tylenol Extra Strength) 500 Mg Tablet, 1,000 MG PO Q8H PRN for PAIN-MILD (1-4), (Reported) Entered as Reported by: POLLO BENJAMIN on 09/24/21 0479 Last Action: Continued Albuterol Sulfate (Proventil Hfa) 6.7 Gm Hfa.aer.ad, 2 PUFF INH Q6H PRN for SHORTNESS OF BREATH, (Reported) Entered as Reported by: RADHA HUANG on 06/16/21937 Last Action: Reviewed Albuterol Sulfate (Albuterol Sulfate) 2.5 Mg/3 Ml Vial.neb, 3 ML NEB Q6H PRN for SHORTNESS OF BREATH, (Reported) Entered as Reported by: RADHA HUANG on 06/16/2139 Last Action: Reviewed Atorvastatin Calcium (Atorvastatin Calcium) 80 Mg Tablet, 80 MG PO HS, (Reported) Entered as Reported by: POLLO BENJAMIN on 09/24/211336 Last Action: Reviewed Clopidogrel Bisulfate (Clopidogrel) 75 Mg Tablet, 75 MG PO HS, (Reported) Entered as Reported by: POLLO BENJAMIN on 09/24/211336 Last Action: Continued Cyclobenzaprine HCl (Cyclobenzaprine HCl) 10 Mg Tablet, 10 MG PO BID, (Reported) Entered as Reported by: RADHA HUANG on 06/16/21937 Last Action: Continued Diphenhydramine HCl (Benadryl) 25 Mg Capsule, 50 MG PO HS PRN for SLEEP, (Reported) Entered as Reported by: JAMES FRIAS on 08/14/19 105 Last Action: Reviewed Fluoxetine HCl (Fluoxetine HCl) 40 Mg Capsule, 40 MG PO BID, (Reported) Entered as Reported by: POLLO BENJAMIN on 09/24/211335 Last Action: Converted Gabapentin (Gabapentin) 400 Mg Capsule, 400 MG PO TID, (Reported) Entered as Reported by: ILYA PABLO on 04/15/212228 Last Action: Continued Gabapentin (Neurontin) 300 Mg Capsule, 300 MG PO TID, (Reported) Entered as Reported by: RADHA HUANG on 06/16/21937 Last Action: Continued Metoprolol Succinate (Metoprolol Succinate) 25 Mg Tab.er.24h, 25 MG PO HS, (Reported) Entered as Reported by: POLLO BENJAMIN on 09/24/211337 Last Action: Continued Mirtazapine (Mirtazapine) 30 Mg Tablet, 30 MG PO HS, (Reported) Entered as Reported by: POLLO BENJAMIN on 12/10/21 1336 Last Action: Converted Physical Exam-Cardiology Physical Exam Vital Signs/I&O 10/03/21 10/03/21 10/03/21 10/04/21 20:55 21:24 23:24 02:03 Temp 36.7 Pulse 79 Resp 20 B/P (MAP) 159/90 (113) Pulse Ox 96 96 92 92 O2 Delivery High Flow N/C High Flow N/C High Flow N/C High Flow N/C O2 Flow Rate 2.00 3.00 3.00 3.00 10/04/21 10/04/21 10/04/21 10/04/21 03:43 03:47 06:14 07:53 Temp 36.6 36.6 Pulse 87 87 80 Resp 20 20 23 B/P (MAP) 221/75 (123) 187/73 (111) 173/114 (144) Pulse Ox 90 90 95 92 O2 Delivery High Flow N/C High Flow N/C High Flow N/C High Flow N/C O2 Flow Rate 3.00 3.00 5.00 5.00 10/04/21 08:00 Pulse 80 Resp 23 B/P (MAP) 160/98 (118) Pulse Ox 92 O2 Delivery High Flow N/C O2 Flow Rate 5.00 10/04/21 00:00 Intake Total 1090 ml Balance 1090 ml Capillary Refill : Less Than 3 Seconds Constitutional: AAO x 3, well-developed, well-nourished, other (on oxygen mask) HEENT: EOMI; No xanthelasmas are seen Neck: carotid pulses are 2 + bilaterally Respiratory: No accessory muscle use; other (fair air entry, diminished at the bases) Cardiovascular: regular rate-rhythm, S1 and S2, systolic murmur (soft ARMANDO at card base) Gastrointestinal: No tender; soft; No guarding, No rebound; audible bowel sounds Extremities: No clubbing, No cyanosis, No significant edema Neurologic/Psychiatric: other (moves all limbs equally) Skin: diaphoresis; No rash on exposed areas, No ulcerations on exposed areas Data Review Labs Laboratory Tests 10/04/21 04:21: White Blood Count 26.8H, Red Blood Count 4.92, Hemoglobin 14.4, Hematocrit 46, Mean Corpuscular Volume 93, Mean Corpuscular Hemoglobin 29, Mean Corpuscular He moglobin Concent 31L, Red Cell Distribution Width 14.5, Platelet Count 250, Mean Platelet Volume 11.0, Immature Granulocyte % (Auto) 3, Neutrophils (%) (Auto) 77H, Lymphocytes (%) (Auto) 15, Monocytes (%) (Auto) 4, Eosinophils (%) (Auto) 0, Basophils (%) (Auto) 0, Neutrophils # (Auto) 20.6H, Lymphocytes # (Auto) 4.1H , Monocytes # (Auto) 1.1H, Eosinophils # (Auto) 0.0, Basophils # (Auto) 0.1, Immature Granulocyte # (Auto) 0.8H, Neutrophils % (Manual) 84, Lymphocytes % (Manual) 9, Monocytes % (Manual) 1, Eosinophils % (Manual) 3, Band Neutrophils 2, Sodium Level 139, Potassium Level 4.3, Chloride Level 104, Carbon Dioxide Level 21, Anion Gap 14, Blood Urea Nitrogen 25H, Creatinine 0.76, Estimat Glomerular Filtration Rate 80, BUN/Creatinine Ratio 33, Glucose Level 138H, Calcium Level 8.8, Corrected Calcium 8.9, Total Bilirubin 0.6, Aspartate Amino Transf (AST/SGOT) 27, Alanine Aminotransferase (ALT/SGPT) 62H, Alkaline Phosphatase 134, Troponin I 9.038*H, Total Protein 7.0, Albumin 3.9 Microbiology 09/24/21 Blood Culture - Final, Complete No growth Laboratory Tests 10/04/21 04:21 A/P-Cardiology Assessment/Admission Diagnosis COVID-19 and ac resp failure Ac NSTEMI, treated with primary angioplasty and stenting of the first diag of LAD on 10/04/21 (see below) CAD - Card cath of 03/05/19 (Dr Corey at [facility]): mild CAD, normal systolic function, LVEDP not reported - Card cath in May [address] Naylor: two overlapping Letty 3.0 x 23 stents in mid to distal RCA - Card cath on 10/04/21: LMCA ok, LAD with mild plaques, D1 of LAD with 99% ostial stenosis (treated with Skypoint 2.0 x 12 stent, postdilated with a 2.5 mm non-compliant balloon), mild plaques in the LCx, multiple mild to mod stenoses and a patent stented segment in the mid to distal RCA, RCA dominant, LVEDP 24 mmHg, LVEF approx 50% S/p single chamber ICD [place] in [address] in [place], [place] for nonsu stained polymorphic VT, sinus pauses and prolonged QT. Replaced in Sep [address] Conn - no recent ICD discharge Chronic tobacco use Hyperlipidemia Noncompliance Discussion and Recomendations * DAPT. She reports allergy to aspirin, but on close questioning does not report specific side effects except that had bleeding post device placement that was thought to be due to aspirin at that time * Beta-javon and statin * Continue SAMIRA-inhig * Add amlodipine for better bp control * Advised compliance and to quit smoking * Monitor labs ANDRE GODDARD MD FACP [facility] CCDS Oct 04, 2021 08:31
[2021-10-04] MEDS: NS IV 1000 ML 1,000 ML IV SCH (08:35)
[2021-10-04] MEDS: meTOprolol SUCCINATE 100 MG (TOPROL XL) TAB PO SCH ×2 (08:36→20:44)
[2021-10-04] MEDS: GABAPENTIN 300 MG (NEURONTIN) CAP PO SCH ×3 (08:36→20:44)
[2021-10-04] MEDS: FLUoxetine HCL 20 MG (PROzac) CAP PO SCH ×2 (08:36→20:44)
[2021-10-04] MEDS: lisINopril 40 MG (PRINIVIL) TABLET PO SCH (08:36)
[2021-10-04] MEDS: KETOROLAC 15 MG/ML VIAL IVP PRN ×3 (08:36→23:44)
[2021-10-04] MEDS: GABAPENTIN 400 MG (NEURONTIN) CAP PO SCH ×3 (08:36→20:43)
[2021-10-04] MEDS: amLODIPine 5 MG (NORVASC) TAB PO SCH (08:40)
[2021-10-04] MEDS: ASPIRIN 81 MG CHEW (CHILDREN'S ASA) PO SCH (09:00)
--- NOTE | 2021-10-04 09:18 | Progress Note - Hospitalist ---
Subjective HPI/CC On Admission Date Seen by Provider: Oct 04, 2021 Time Seen by Provider: 10:00 Patient denies shortness of breath at rest and extremely fatigued reporting chest pain with coughing. She reports that she has received codeine with cough syrup in the emergency room which has been of more benefit than anything else from a pain and cough standpoint. She denies any problems with the medication. Cough is nonproductive. Subjective/Events-last exam Pt had an episode of chest pain and was found to have elevated Troponin at 9 taken to pathology laboratory technologist and stent placed at LAD. Plavix was maintained the whole time. Pt reports doing well otherwise. No more chest pain. Review of Systems General: Fatigue, Malaise Cardiovascular: Chest Pain Objective Exam Vital Signs Vital Signs Date Time Temp Pulse Resp B/P (MAP) Pulse Ox O2 Delivery O2 Flow Rate FiO2 10/05/21 03:30 94 High Flow N/C 3.00 10/05/21 03:30 35.9 10/05/21 01:00 59 18 10/04/21 16:37 32 Capillary Refill : Less Than 3 Seconds General Appearance: No Apparent Distress, WD/WN, Anxious, Chronically ill Respiratory: Lungs Clear, Normal Breath Sounds Cardiovascular: Regular Rate, Rhythm Neurologic/Psychiatric: Alert, Oriented x3, No Motor/Sensory Deficits, Normal Mood/Affect Results/Procedures Lab Laboratory Tests 10/05/21 04:05 Patient resulted labs reviewed. Assessment/Plan Assessment and Plan Assess & Plan/Chief Complaint Assessment: Acute hypoxic respiratory failure COVID-19 pneumonia Non-ST elevation CO status post emergent cardiac cath on 10/04/[address] Gautam with stent placed in LAD Exacerbation COPD Esophageal mass on CT scan? Hypertension CAD with previous stents Plan: Supportive care Vapotherm 10/03/2021: Wean oxygen Monitor closely Discharge soon 10/04/2021: Appreciate Dr. Gautam COVID-19 protocol meds Critical Care Critically Ill Patient HILL,SHARRI TALBERT Oct 04, 2021 09:18
--- NOTE | 2021-10-04 10:35 | Tele-ICU Progress Note ---
Subjective Date Seen by a Provider: Oct 04, 2021 Time Seen by a Provider: 10:34 Subjective/Events-last exam (Tele-ICU Physician , Progress Note ) Available chart/ vitals / labs / Images reviewed Video assessment done using teleICU camera, rest of exam as per RN Discussed with RN , EXAM PER RN Events overnight : CP - to laboratory technical specialist Afebrile FiO2 - 10 L I/O = Drips: Pressors: , hemodynamically stable Consultants: michael Hospital course: A/P COVID - 10 days of hospitalization , no PE on cr 09/24 - on steroids -s/p actemra 09/27 -5 L NC - follow - not on AC SINCE ADMISSION - WILL ADRESS WITH PCP ? contraindications ACS - as per cards AECOPD- nebs Elev WBC - ? stress vs steroids vs infection - check PCT , off abx Lines : perip (Central Line Necessity Reviewed) Celaya: OG: Nutrition: Analgesia: Anxiety/ delirium VTE Prophylaxis: Stress Ulcer Prophylaxis: Glycemic Control: Plans in collaboration with bedside consultants and IM MDs. Discussed with RN to reach out if any questions or concerns A total of 30 minutes of critical care time was devoted to this patient today, required to treat and/or prevent further deterioration of critical care condi tion ( as above) . Sepsis Event Evaluation Height, Weight, BMI Height: 5'7.00" Weight: 200lbs. 0oz. 90.839177nq; 34.74 BMI Method:Stated Exam Exam Patient acknowledged, consented, and participated in this virtual visit which was conducted using real time audio/video Vital Signs Date Time Temp Pulse Resp B/P (MAP) Pulse Ox O2 Delivery O2 Flow Rate FiO2 10/04/21 10:00 71 19 120/75 (90) 95 High Flow N/C 5.00 10/04/21 09:00 75 23 127/93 (102) 94 High Flow N/C 5.00 10/04/21 08:45 78 18 141/116 (126) 92 High Flow N/C 5.00 10/04/21 08:30 80 28 145/112 (122) 92 High Flow N/C 5.00 10/04/21 08:15 79 18 164/107 (121) 92 High Flow N/C 5.00 10/04/21 08:15 92 High Flow N/C 10.00 10/04/21 08:00 80 23 160/98 (118) 92 High Flow N/C 5.00 10/04/21 07:53 80 23 173/114 (144) 92 High Flow N/C 5.00 10/04/21 06:14 95 High Flow N/C 5.00 10/04/21 03:47 36.6 87 20 187/73 (111) 90 High Flow N/C 3.00 10/04/21 03:43 36.6 87 20 221/75 (123) 90 High Flow N/C 3.00 10/04/21 02:03 92 High Flow N/C 3.00 10/03/21 23:24 36.7 79 20 159/90 (113) 92 High Flow N/C 3.00 10/03/21 21:24 96 High Flow N/C 3.00 10/03/21 20:55 96 High Flow N/C 2.00 10/03/21 19:57 36.4 78 20 154/84 (107) 90 High Flow N/C 3.00 10/03/21 18:55 92 High Flow N/C 3.00 10/03/21 15:40 36.2 92 22 149/80 (103) 92 High Flow N/C 3.00 10/03/21 14:42 93 High Flow N/C 3.00 10/03/21 11:00 75 20 138/93 (108) 94 High Flow N/C 4.00 I & O 10/04/21 07:00 Intake Total 1740 ml Balance 1740 ml Height & Weight Height: 5'7.00" Weight: 200lbs. 0oz. 90.115782el; 34.74 BMI Method:Stated General Appearance: No Apparent Distress, WD/WN, Chronically ill Respiratory: No Accessory Muscle Use, No Respiratory Distress, Decreased Breath Sounds Cardiovascular: Regular Rate, Rhythm Capillary Refill: Less Than 3 Seconds Gastrointestinal: normal bowel sounds, non tender, soft Extremity: Normal Inspection, Normal Range of Motion, Non Tender, No Calf Tenderness, No Pedal Edema Neurologic/Psychiatric: Alert, Oriented x3 Results Lab Laboratory Tests 10/04/21 04:21 Assessment/Plan Assessment/Plan (Tele-ICU Physician , Progress Note ) Available chart/ vitals / labs / Images reviewed Video assessment done using teleICU camera, rest of exam as per RN Discussed with RN , EXAM PER RN Events overnight : CP - to laboratory technical specialist Afebrile FiO2 - 10 L I/O = Drips: Pressors: , hemodynamically stable Consultants: michael Hospital course: A/P COVID - 10 days of hospitalization , no PE on cr 09/24 - on steroids -s/p actemra 09/27 -5 L NC - follow - not on AC SINCE ADMISSION - WILL ADRESS WITH PCP ? contraindications ACS - as per cards AECOPD- nebs Elev WBC - ? stress vs steroids vs infection - check PCT , off abx Lines : perip (Central Line Necessity Reviewed) Celaya: OG: Nutrition: Analgesia: Anxiety/ delirium VTE Prophylaxis: Stress Ulcer Prophylaxis: Glycemic Control: Plans in collaboration with bedside consultants and IM MDs. Discussed with RN to reach out if any questions or concerns A total of 30 minutes of critical care time was devoted to this patient today, required to treat and/or prevent further deterioration of critical care condition ( as above) . VAISHALI CHARLES MD Oct 04, 2021 10:35
--- NOTE | 2021-10-04 11:48 | CARDIAC CATHETERIZATION ---
DATE OF SERVICE: 10/04/2021 CARDIAC CATHETERIZATION REPORT The patient is a 51-year-old lady who has been hospitalized with COVID pneumonia and acute respiratory failure. She has a history of coronary artery disease. She is a patient of Dr. Naylor. Her last cardiac catheterization was in 05/2021. At that time, she had two stents placed in the distal right coronary artery. These are overlapping Letty 3.0 x 23 mm stents. There is also a history of prior coronary intervention, apparently in 2019, in [place], [place] of which the details are not known. During this hospitalization, earlier today, she developed chest pain and subsequently troponin was elevated, and she continued to have chest pain. Accordingly, urgent cardiac catheterization was carried out after having obtained an informed consent for cardiac catheterization and ad hoc coronary intervention, if needed. DESCRIPTION OF PROCEDURE: She was brought to the cardiac catheterization laboratory. Right groin was prepared and draped in the usual sterile fashion. Lidocaine 1% was infused to local anesthesia. Modified Seldinger technique was used to advance a 6-[place] sheath in right femoral artery. A 6-[place] JL4 catheter for left coronary angiography. A 6-[place] JR4 catheter was used for right coronary angiography. Subsequently, percutaneous intervention was carried out to the diagonal branch of the left anterior descending artery that is described below. Following completion of the percutaneous intervention to the right coronary artery, we used a 6-[place] pigtail catheter for left heart catheterization and left ventricular angiography. The pigtail catheter was then removed, and angiography of the right femoral artery was carried out through the sheath and Mynx was used to achieve hemostasis. PERCUTANEOUS INTERVENTION TO A DIAGONAL BRANCH OF THE LEFT ANTERIOR DESCENDING ARTERY: The first diagonal branch of left anterior descending artery was exhibiting a 99% stenosis with some thrombus. We used a 6-[place] JL4 guide catheter to engage the coronary artery. We advanced a ChoICE floppy wire across the lesion and the tip was placed in the distal vessel. We carried out balloon angioplasty with a 2.0 x 20 mm balloon. Subsequently, because of significant residual stenosis of up to approximately 90% at the ostium, we stented the ostium with a 2.0 x 12 mm stent. This was very carefully positioned such that it covers the ostium, but does not extend into the left anterior descending. We carried out post-dilation with a 2.5 x 15 mm NC [place] balloon. Subsequent angiography reveals no significant residual stenosis at the previous site of 99% stenosis in the ostial first diagonal. Flow throughout the vessel is normal. CORONARY ANGIOGRAPHY: Left main coronary artery is free of significant disease. Left anterior descending artery has diffuse plaque. The first diagonal branch and left anterior descending artery had 99% stenosis following stenting with a Skypoint 2.0 x 12 mm stent, there is no significant residual stenosis. The stent was postdilated with a 2.5 mm noncompliant balloon. The left circumflex artery has mild plaques. Right coronary artery has diffuse mild to moderate disease. There is a patent stented segment in the distal right coronary. The right coronary artery is dominant. LEFT VENTRICULAR ANGIOGRAPHY: Left ventricular angiography was carried out in the right anterior oblique projection. Global left ventricular systolic function appears well preserved. Left ventricular ejection fraction is approximately 50%. HEMODYNAMICS: Left ventricular end-diastolic pressure following coronary angiography was 24 mmHg. There was no significant pressure gradient on pullback across the aortic valve. Ascending aortic pressure was 182/115 with a mean of 148 mmHg. CONCLUSIONS: Coronary artery disease primarily consisting of 99% stenosis in the first diagonal branch of the left anterior descending that was successfully stented with Skypoint 2.0 x 12 mm stent that was postdilated with a 2.5 mm noncompliant balloon. The left anterior descending artery has mild plaques. Left circumflex artery has mild plaques. Right coronary artery has diffuse mild to moderate disease. A distal stented segment of the right coronary artery is patent and does not exhibit significant restenosis. DISCUSSION AND RECOMMENDATIONS: She has been advised to quit smoking immediately and completely. Dual antiplatelet therapy is advised. She has nonspecific intolerance to aspirin. She does not appear to have any true allergy. We have advised the use of low dose aspirin, if tolerated. Plavix is being continued. Therapy with beta-javon and SAMIRA inhibitors is being continued. Job ID: [id number] DocumentID: [id number] Dictated Date: 10/04/2021 08:25:50 Log Rider Date: 10/04/2021 11:48:27 Dictated By: ANDRE GODDARD MD, MA, FACP, FACC,
[2021-10-04] MEDS: MIRTAZAPINE 15 MG (REMERON) TAB PO SCH (20:44)
[2021-10-04] MEDS: ACETAMINOPHEN 500 MG TAB (TYLENOL) PO PRN (20:44)
[2021-10-04] MEDS: CLOPIDOGREL 75 MG (PLAVIX) TABLET PO SCH (20:44)
[2021-10-05] VITALS (14 sets, daily range): BP systolic 94–149; BP diastolic 45–102
[2021-10-05] MEDS: RT-ALBUTEROL HFA 8.5 GM INHALER IH SCH ×3 (02:58→11:00)
[2021-10-05] MEDS: ACETAMINOPHEN 500 MG TAB (TYLENOL) PO PRN ×2 (03:30→11:42)
[2021-10-05] MEDS: PROMETHAZINE/ CODEINE SYRUP 5 ML UDC PO PRN (03:32)
[2021-10-05] MEDS: NS IV 1000 ML 1,000 ML IV SCH (04:20)
[2021-10-05] MEDS: LORazepam 0.5 MG (ATIVAN) TABLET PO PRN (04:28)
[2021-10-05 04:30] LABS: BASOPHILS % (AUTO) 0 % (0-10); EOSINOPHILS % (AUTO) 0 % (0-10); HEMATOCRIT 36 % (35-52); HEMOGLOBIN 11.3 g/dL (11.5-16.0); LYMPHOCYTES # (AUTO) 2.7 10^3/uL (1.0-4.0); LYMPHOCYTES % (AUTO) 13 % (12-44); MEAN CORPUSCULAR HEMOGLOBIN 29 pg (25-34); MEAN CORPUSCULAR HGB CONC 31 g/dL (32-36); MEAN CORPUSCULAR VOLUME 95 fL (80-99); MEAN PLATELET VOLUME 11.1 fL (9.0-12.2); MONOCYTES # (AUTO) 0.9 10^3/uL (0.0-1.0); MONOCYTES % (AUTO) 4 % (0-12); NEUTROPHILS # (AUTO) 16.3 10^3/uL (1.8-7.8); NEUTROPHILS % (AUTO) 81 % (42-75); PLATELET COUNT 173 10^3/uL (130-400); WHITE BLOOD COUNT 20.2 10^3/uL (4.3-11.0)
[2021-10-05 04:49] LABS: ALBUMIN 3.2 GM/DL (3.2-4.5); POTASSIUM 3.6 MMOL/L (3.6-5.0)
[2021-10-05 04:50] LABS: CALCIUM 8.2 MG/DL (8.5-10.1)
[2021-10-05 04:52] LABS: TOTAL PROTEIN 5.6 GM/DL (6.4-8.2)
[2021-10-05 04:53] LABS: BILIRUBIN,TOTAL 0.4 MG/DL (0.1-1.0)
[2021-10-05 04:55] LABS: CREATININE SERUM 0.78 MG/DL (0.60-1.30); PHOSPHORUS 3.8 MG/DL (2.3-4.7)
[2021-10-05 04:58] LABS: MAGNESIUM 1.8 MG/DL (1.6-2.4)
--- NOTE | 2021-10-05 05:42 | Tele-ICU Progress Note ---
Subjective Date Seen by a Provider: Oct 05, 2021 Time Seen by a Provider: 05:41 Sepsis Event Evaluation Height, Weight, BMI Height: 5'7.00" Weight: 200lbs. 0oz. 90.099443ht; 34.74 BMI Method:Stated Exam Exam Patient acknowledged, consented, and participated in this virtual visit which was conducted using real time audio/video Vital Signs Date Time Temp Pulse Resp B/P (MAP) Pulse Ox O2 Delivery O2 Flow Rate FiO2 10/05/21 03:30 94 High Flow N/C 3.00 10/05/21 03:30 35.9 High Flow N/C 3.00 10/05/21 02:58 92 High Flow N/C 3.00 10/05/21 01:00 59 18 112/63 (90) 93 High Flow N/C 3.00 10/05/21 01:00 65 10/05/21 00:00 59 18 115/75 (89) 94 High Flow N/C 3.00 10/04/21 23:40 92 High Flow N/C 3.00 10/04/21 23:35 36.0 68 24 97/54 (68) 94 High Flow N/C 3.00 10/04/21 22:23 94 High Flow N/C 3.00 10/04/21 22:00 68 17 97/53 (62) 92 High Flow N/C 3.00 10/04/21 21:00 72 20 117/70 (85) 95 High Flow N/C 3.00 10/04/21 20:00 71 21 109/64 (81) 93 High Flow N/C 3.00 10/04/21 19:40 93 High Flow N/C 3.00 10/04/21 19:00 36.5 72 20 107/77 (87) 93 High Flow N/C 3.00 10/04/21 19:00 80 10/04/21 18:17 94 High Flow N/C 3.00 10/04/21 18:00 81 25 93 High Flow N/C 5.00 10/04/21 17:00 71 29 118/71 (87) 93 High Flow N/C 5.00 10/04/21 16:37 36.0 67 93 32 10/04/21 16:14 36.0 10/04/21 16:00 70 19 111/71 (84) 93 High Flow N/C 5.00 10/04/21 15:00 63 23 97/51 (66) 93 High Flow N/C 5.00 10/04/21 14:36 93 High Flow N/C 3.00 10/04/21 14:34 95 High Flow N/C 5.00 10/04/21 14:00 75 19 112/62 (79) 95 High Flow N/C 5.00 10/04/21 13:00 89 23 123/85 (98) 93 High Flow N/C 5.00 10/04/21 12:40 88 10/04/21 12:00 92 128/81 (97) 92 High Flow N/C 5.00 10/04/21 11:00 87 34 118/86 (97) 90 High Flow N/C 5.00 10/04/21 10:38 93 High Flow N/C 5.00 10/04/21 10:36 96 High Flow N/C 10.00 10/04/21 10:00 71 19 120/75 (90) 95 High Flow N/C 5.00 10/04/21 09:00 75 23 127/93 (102) 94 High Flow N/C 5.00 10/04/21 08:45 78 18 141/116 (126) 92 High Flow N/C 5.00 10/04/21 08:30 80 28 145/112 (122) 92 High Flow N/C 5.00 10/04/21 08:15 79 18 164/107 (121) 92 High Flow N/C 5.00 10/04/21 08:15 92 High Flow N/C 10.00 10/04/21 08:15 92 High Flow N/C 10.00 10/04/21 08:00 80 23 160/98 (118) 92 High Flow N/C 5.00 10/04/21 07:53 80 23 173/114 (144) 92 High Flow N/C 5.00 10/04/21 06:14 95 High Flow N/C 5.00 I & O 10/05/21 07:00 Intake Total 1080 ml Output Total 850 ml Balance 230 ml Height & Weight Height: 5'7.00" Weight: 200lbs. 0oz. 90.050416lg; 34.74 BMI Method:Stated General Appearance: No Apparent Distress, WD/WN, Anxious, Chronically ill Respiratory: Lungs Clear, Normal Breath Sounds Cardiovascular: Regular Rate, Rhythm Capillary Refill: Less Than 3 Seconds Gastrointestinal: normal bowel sounds, non tender, soft Extremity: Normal Inspection, Normal Range of Motion, Non Tender, No Calf Tenderness, No Pedal Edema Neurologic/Psychiatric: Alert, Oriented x3, No Motor/Sensory Deficits, Normal Mood/Affect Results Lab Laboratory Tests 10/04/21 04:21 10/05/21 04:05 Assessment/Plan Assessment/Plan Increased wbc in the context of decadron and covid; we will check procal ro bacterial co infection BLAS SHIN MD Oct 05, 2021 05:42
[2021-10-05] MEDS: KETOROLAC 15 MG/ML VIAL IVP PRN (05:50)
[2021-10-05] MEDS ORDERED: POTASSIUM CL 10MEQ/50ML IVPB 50 ML IV SCH (06:00)
[2021-10-05] MEDS ORDERED: MAGNESIUM 1 GM/100 ML IVPB 100 ML IV SCH (06:00)
[2021-10-05] MEDS ORDERED: KCL 20 MEQ TAB (K-DUR) PO SCH (06:00)
--- NOTE | 2021-10-05 06:10 | Progress Note - Hospitalist ---
Subjective HPI/CC On Admission Date Seen by Provider: Oct 05, 2021 Time Seen by Provider: 10:00 Patient denies shortness of breath at rest and extremely fatigued reporting chest pain with coughing. She reports that she has received codeine with cough syrup in the emergency room which has been of more benefit than anything else from a pain and cough standpoint. She denies any problems with the medication. Cough is nonproductive. Subjective/Events-last exam Ready for discharge Home O2 evaluation to be done Review of Systems General: Fatigue, Malaise Objective Exam Vital Signs Vital Signs Date Time Temp Pulse Resp B/P (MAP) Pulse Ox O2 Delivery O2 Flow Rate FiO2 10/05/21 14:26 10/05/21 14:00 78 20 94 High Flow N/C 3.00 10/05/21 11:57 36.4 10/04/21 16:37 32 Capillary Refill : Less Than 3 Seconds General Appearance: No Apparent Distress, WD/WN, Chronically ill, Obese Respiratory: No Accessory Muscle Use, No Respiratory Distress, Decreased Breath Sounds Cardiovascular: Regular Rate, Rhythm Neurologic/Psychiatric: Alert, Oriented x3 Results/Procedures Lab Patient resulted labs reviewed. Assessment/Plan Assessment and Plan Assess & Plan/Chief Complaint Assessment: Acute hypoxic respiratory failure COVID-19 pneumonia Non-ST elevation DE status post emergent cardiac cath on 10/04/[address] Gautam with stent placed in LAD Exacerbation COPD Esophageal mass on CT scan? Hypertension CAD with previous stents Plan: Supportive care Vapotherm 10/03/2021: Wean oxygen Monitor closely Discharge soon 10/04/2021: Appreciate Dr. Gautam COVID-19 protocol meds 10/05/2021: Supportive care Discharge Critical Care Critically Ill Patient SHARRI HILL DO Oct 05, 2021 06:10
[2021-10-05] MEDS: meTOprolol 5 MG/5 ML (LOPRESSOR) VIAL IV SCH ×2 (06:11→12:15)
[2021-10-05] MEDS: UMECLIDINIUM BROMIDE (INCRUSE ELLIPTA) 7'S IH SCH (07:10)
[2021-10-05] MEDS ORDERED: KCL 20 MEQ TAB (K-DUR) PO NR (08:00)
[2021-10-05] MEDS: FLUoxetine HCL 20 MG (PROzac) CAP PO SCH (08:38)
[2021-10-05] MEDS: ASPIRIN 81 MG CHEW (CHILDREN'S ASA) PO SCH (08:38)
[2021-10-05] MEDS: GABAPENTIN 300 MG (NEURONTIN) CAP PO SCH ×2 (08:42→13:30)
[2021-10-05] MEDS: meTOprolol SUCCINATE 100 MG (TOPROL XL) TAB PO SCH (08:42)
[2021-10-05] MEDS: lisINopril 40 MG (PRINIVIL) TABLET PO SCH (08:42)
[2021-10-05] MEDS: GABAPENTIN 400 MG (NEURONTIN) CAP PO SCH ×2 (08:42→13:30)
[2021-10-05] MEDS: amLODIPine 5 MG (NORVASC) TAB PO SCH (08:42)
--- NOTE | 2021-10-05 10:12 | Tele-ICU Progress Note ---
Subjective Date Seen by a Provider: Oct 05, 2021 Time Seen by a Provider: 10:12 Sepsis Event Evaluation Height, Weight, BMI Height: 5'7.00" Weight: 200lbs. 0oz. [id number]; 34.74 BMI Method:Stated Exam Exam Patient acknowledged, consented, and participated in this virtual visit which was conducted using real time audio/video Vital Signs Date Time Temp Pulse Resp B/P (MAP) Pulse Ox O2 Delivery O2 Flow Rate FiO2 10/05/21 08:37 96 High Flow N/C 3.00 10/05/21 08:00 36.2 10/05/21 07:13 High Flow N/C 3.00 10/05/21 07:11 93 High Flow N/C 3.00 10/05/21 06:00 65 22 133/86 (102) 92 High Flow N/C 3.00 10/05/21 05:00 64 18 94/45 (62) 93 High Flow N/C 3.00 10/05/21 04:00 67 17 94/56 (70) 93 High Flow N/C 3.00 10/05/21 03:30 94 High Flow N/C 3.00 10/05/21 03:30 35.9 High Flow N/C 3.00 10/05/21 03:00 57 15 128/83 (96) 92 High Flow N/C 3.00 10/05/21 02:58 92 High Flow N/C 3.00 10/05/21 02:00 57 16 110/62 (80) 94 High Flow N/C 3.00 10/05/21 01:00 59 18 112/63 (90) 93 High Flow N/C 3.00 10/05/21 01:00 65 10/05/21 00:00 59 18 115/75 (89) 94 High Flow N/C 3.00 10/04/21 23:40 92 High Flow N/C 3.00 10/04/21 23:35 36.0 68 24 97/54 (68) 94 High Flow N/C 3.00 10/04/21 22:23 94 High Flow N/C 3.00 10/04/21 22:00 68 17 97/53 (62) 92 High Flow N/C 3.00 10/04/21 21:00 72 20 117/70 (85) 95 High Flow N/C 3.00 10/04/21 20:00 71 21 109/64 (81) 93 High Flow N/C 3.00 10/04/21 19:40 93 High Flow N/C 3.00 10/04/21 19:00 36.5 72 20 107/77 (87) 93 High Flow N/C 3.00 10/04/21 19:00 80 10/04/21 18:17 94 High Flow N/C 3.00 10/04/21 18:00 81 25 93 High Flow N/C 5.00 10/04/21 17:00 71 29 118/71 (87) 93 High Flow N/C 5.00 10/04/21 16:37 36.0 67 93 32 10/04/21 16:14 36.0 10/04/21 16:00 70 19 111/71 (84) 93 High Flow N/C 5.00 10/04/21 15:00 63 23 97/51 (66) 93 High Flow N/C 5.00 10/04/21 14:36 93 High Flow N/C 3.00 10/04/21 14:34 95 High Flow N/C 5.00 10/04/21 14:00 75 19 112/62 (79) 95 High Flow N/C 5.00 10/04/21 13:00 89 23 123/85 (98) 93 High Flow N/C 5.00 10/04/21 12:40 88 10/04/21 12:00 92 128/81 (97) 92 High Flow N/C 5.00 10/04/21 11:00 87 34 118/86 (97) 90 High Flow N/C 5.00 10/04/21 10:38 93 High Flow N/C 5.00 10/04/21 10:36 96 High Flow N/C 10.00 I & O 10/05/21 07:00 Intake Total 1330 ml Output Total 850 ml Balance 480 ml Height & Weight Height: 5'7.00" Weight: 200lbs. 0oz. [id number]; 34.74 BMI Method:Stated General Appearance: No Apparent Distress, WD/WN, Anxious, Chronically ill Respiratory: Lungs Clear, Normal Breath Sounds Cardiovascular: Regular Rate, Rhythm Capillary Refill: Less Than 3 Seconds Gastrointestinal: normal bowel sounds, non tender, soft Extremity: Normal Inspection, Normal Range of Motion, Non Tender, No Calf Tenderness, No Pedal Edema Neurologic/Psychiatric: Alert, Oriented x3, No Motor/Sensory Deficits, Normal Mood/Affect Results Lab Laboratory Tests 10/04/21 04:21 10/05/21 04:05 Assessment/Plan Assessment/Plan (Tele-ICU Physician , Progress Note ) Available chart/ vitals / labs / Images reviewed Video assessment done using teleICU camera, rest of exam as per RN Discussed with RN , EXAM PER RN Events overnight : 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 change to PO -s/p actemra 09/27 -5 L NC - follow - as per RN report - on home o2 - was on lovenox proph - now on plavix - follow ACS - as per cards AECOPD- nebs Elev WBC - ? stress vs steroids vs infection - PCT WNL , off abx Lines : perip (Central Line Necessity Reviewed) Celaya: OG: Nutrition: Analgesia: Anxiety/ delirium VTE Prophylaxis: Stress Ulcer Prophylaxis: Glycemic Control: Plans in collaboration with bedside consultants and IM MDs. Discussed with RN to reach out if any questions or concerns A total of 25 minutes of critical care time was devoted to this patient today, required to treat and/or prevent further deterioration of critical care condition ( as above) . VAISHALI CHARLES MD Oct 05, 2021 10:12
[2021-10-05] MEDS ORDERED: AMLO-250 PO (10:49)
[2021-10-05] MEDS ORDERED: ASPI81TA64 PO (10:49)
[2021-10-05] MEDS ORDERED: MTP100TCR PO (10:49)
[2021-10-05] MEDS ORDERED: PROM5SYR PO (10:49)
[2021-10-05] MEDS ORDERED: NITR0.4T42 SL (10:49)
[2021-10-05] MEDS ORDERED: LISI40TA9 PO (10:49)
--- NOTE | 2021-10-05 10:49 | Discharge Summary ---
Discharge Summary Hospital Course Was the Problem List Reviewed?: Yes Problems/Dx: (1) Pneumonia due to COVID-19 virus Status: Acute (2) Essential hypertension Status: Chronic (3) Hypokalemia Status: Acute (4) COPD with exacerbation Status: Acute (5) NSTEMI (non-ST elevation myocardial infarction) Status: Resolved Hospital Course Date of Admission: Sep 24, 2021 at 08:38 Admission Diagnosis : Family Physician/Provider: John Wilde MD Date of Discharge: 10/05/21 Discharge Diagnosis: COVID-19 pneumonia, non-ST elevation AK requiring stent placement after troponin found to be 9, CAD previous stents, COPD oxygen dependent Hospital Course: Hospital Course: Pt had a lengthy hospital course for 12 days when she was admitted for Covid. She completed her IV Decadron and IV antibiotics. She remained on oxygen, she was on 2 liters at home but required 3 liters continuous and 5 liters on exertion. She did have a myocardial infarction that needed a cardiac cath with stent placement by Dr. Gautam. She was doing very well and was stable for DC. Labs and Pending Lab Test: Laboratory Tests 10/05/21 04:05: White Blood Count 20.2H, Red Blood Count 3.84, Hemoglobin 11.3#L, Hematocrit 36, Mean Corpuscular Volume 95, Mean Corpuscular Hemoglobin 29, Mean Corpuscular Hemoglobin Concent 31L, Red Cell Distribution Width 14.8H, Platelet Count 173, Mean Platelet Volume 11.1, Immature Granulocyte % (Auto) 2, Neutrophils (%) (Auto) 81H, Lymphocytes (%) (Auto) 13, Monocytes (%) (Auto) 4, Eosinophils (%) (Auto) 0, Basophils (%) (Auto) 0, Neutrophils # (Auto) 16.3H, Lymphocytes # (Auto) 2.7, Monocytes # (Auto) 0.9, Eosinophils # (Auto) 0.0, Basophils # (Auto) 0.0, Immature Granulocyte # (Auto) 0.3H, Sodium Level 140, Potassium Level 3.6, Chloride Level 104, Carbon Dioxide Level 22, Anion Gap 14, Blood Urea Nitrogen 29H, Creatinine 0.78, Estimat Glomerular Filtration Rate 78, BUN/Creatinine Ratio 37, Glucose Level 139H, Calcium Level 8.2L, Corrected Calcium 8.8, Phosphorus Level 3.8, Magnesium Level 1.8, Total Bilirubin 0.4, Aspartate Amino Transf (AST/SGOT) 18, Alanine Aminotransferase (ALT/SGPT) 40, Alkaline Phosphatase 112, Total Protein 5.6L, Albumin 3.2, Procalcitonin 0.04 Microbiology 10/04/21 Gram Stain - Final, Resulted 10/04/21 Sputum Culture - Preliminary, Resulted Probable Haemophilus 09/24/21 Blood Culture - Final, Complete No growth Home Meds Active Prometh-Codein 6.25-10 mg/5 ml (Promethazine HCl/Codeine) 5 Ml Syrup 5 Ml PO Q6H PRN Children's Aspirin (Aspirin) 81 Mg Tab.chew 81 Mg PO DAILY Lisinopril 40 Mg Tablet 40 Mg PO DAILY Amlodipine Besylate 5 Mg Tablet 5 Mg PO DAILY Metoprolol Succinate 100 Mg Tab.er.24h 100 Mg PO BID Nitroglycerin 0.4 Mg Tab.subl 0 Mg SL NEEDED PRN Reported Tylenol Extra Strength (Acetaminophen) 500 Mg Tablet 1,000 Mg PO Q8H PRN TAKES 2 (500MG) TABLETS Metoprolol Succinate 25 Mg Tab.er.24h 25 Mg PO HS Atorvastatin Calcium 80 Mg Tablet 80 Mg PO HS Clopidogrel (Clopidogrel Bisulfate) 75 Mg Tablet 75 Mg PO HS Mirtazapine 30 Mg Tablet 30 Mg PO HS Fluoxetine HCl 40 Mg Capsule 40 Mg PO BID Albuterol Sulfate 2.5 Mg/3 Ml Vial.neb 3 Ml NEB Q6H PRN Cyclobenzaprine HCl 10 Mg Tablet 10 Mg PO BID Neurontin (Gabapentin) 300 Mg Capsule 300 Mg PO TID TAKES 400MG +300MG TO EQUAL 700MG Proventil Hfa (Albuterol Sulfate) 6.7 Gm Hfa.aer.ad 2 Puff INH Q6H PRN Gabapentin 400 Mg Capsule 400 Mg PO TID TAKES 400MG +300MG TO EQUAL 700MG Benadryl (Diphenhydramine HCl) 25 Mg Capsule 50 Mg PO HS PRN Assessment/Pt Instructions PCP in 2 weeks to follow-up for esophageal mass needs EGD Discharge Planning: <30 minutes discharge planning Discharge Instructions Discharge Diet: No Restrictions Discharge Physical Examination Vital Signs Vital Signs Date Time Temp Pulse Resp B/P (MAP) Pulse Ox O2 Delivery O2 Flow Rate FiO2 10/05/21 08:37 96 High Flow N/C 3.00 10/05/21 08:00 36.2 10/05/21 06:00 65 22 133/86 (102) 10/04/21 16:37 32 General Appearance: No Apparent Distress, WD/WN, Chronically ill Respiratory: Lungs Clear, Normal Breath Sounds Allergies: Coded Allergies: aspirin (Verified Allergy, Unknown, 03/07/19) latex (Verified Allergy, Unknown, 09/16/19) Discharge Summary Date of Admission Sep 24, 2021 at 08:38 Date of Discharge Discharge Date: Oct 05, 2021 Discharge Diagnosis Assessment: Acute hypoxic respiratory failure COVID-19 pneumonia Non-ST elevation AK status post emergent cardiac cath on 10/04/[address] Gautam with stent placed in LAD Exacerbation COPD Esophageal mass on CT scan? Hypertension CAD with previous stents Plan: Supportive care Vapotherm 10/03/2021: Wean oxygen Monitor closely Discharge soon 10/04/2021: Appreciate Dr. Gautam COVID-19 protocol SHARRI Viera DO Oct 05, 2021 10:49
--- NOTE | 2021-10-05 13:50 | Progress Note - Cardiology ---
Cardiology SOAP Progress Note Subjective: Lying in bed No c/o CP Mild right groin tenderness with palpation SOB improving Objective: I&O/Vital Signs 10/05/21 10/05/21 10/05/21 10/05/21 02:00 02:58 03:00 03:30 Temp 35.9 Pulse 57 57 Resp 16 15 B/P (MAP) 110/62 (80) 128/83 (96) Pulse Ox 94 92 92 O2 Delivery High Flow N/C High Flow N/C High Flow N/C High Flow N/C O2 Flow Rate 3.00 3.00 3.00 3.00 10/05/21 10/05/21 10/05/21 10/05/21 03:30 04:00 05:00 06:00 Pulse 67 64 65 Resp 17 18 22 B/P (MAP) 94/56 (70) 94/45 (62) 133/86 (102) Pulse Ox 94 93 93 92 O2 Delivery High Flow N/C High Flow N/C High Flow N/C High Flow N/C O2 Flow Rate 3.00 3.00 3.00 3.00 10/05/21 10/05/21 10/05/21 10/05/21 07:00 07:00 07:11 07:13 Pulse 67 64 Resp 16 B/P (MAP) 116/95 (102) Pulse Ox 93 93 O2 Delivery High Flow N/C High Flow N/C High Flow N/C O2 Flow Rate 3.00 3.00 3.00 10/05/21 10/05/21 10/05/21 10/05/21 08:00 08:00 08:37 09:00 Temp 36.2 Pulse 58 84 Resp 17 15 B/P (MAP) 140/98 (112) 111/72 (85) Pulse Ox 93 96 89 O2 Delivery High Flow N/C High Flow N/C High Flow N/C O2 Flow Rate 3.00 3.00 3.00 10/05/21 10/05/21 10/05/21 10/05/21 10:00 11:00 11:19 11:57 Temp 36.4 Pulse 66 74 Resp 24 15 B/P (MAP) 113/73 (86) 142/96 (111) Pulse Ox 94 90 93 O2 Delivery High Flow N/C High Flow N/C High Flow N/C O2 Flow Rate 3.00 3.00 3.00 10/05/21 12:00 Pulse 75 Resp 23 B/P (MAP) 135/102 (113) Pulse Ox 93 O2 Delivery High Flow N/C O2 Flow Rate 3.00 10/05/21 00:00 Intake Total 1080 ml Output Total 850 ml Balance 230 ml Weight (Pounds): 200 Weight (Ounces): 0 Weight (Calculated Kilograms): 90.534499 Side: right Groin site without hematoma: Yes Condition: DP/PT pulses palpable Bruising: moderated bruising Constitutional: AAO x 3, well-developed, well-nourished, other (on oxygen mask) Respiratory: No accessory muscle use; other (fair air entry, diminished at the bases) Cardiovascular: regular rate-rhythm, S1 and S2, systolic murmur (soft ARMANDO at card base) Gastrointestional: No tender; soft; No guarding, No rebound; audible bowel sounds Extremities: No clubbing, No cyanosis, No significant edema Neurologic/Psychiatric: other (moves all limbs equally) Skin: No rash on exposed areas, No ulcerations on exposed areas Results/Procedures: Labs Laboratory Tests 10/05/21 04:05: White Blood Count 20.2H, Red Blood Count 3.84, Hemoglobin 11.3#L, Hematocrit 36, Mean Corpuscular Volume 95, Mean Corpuscular Hemoglobin 29, Mean Corpuscular Hemoglobin Concent 31L, Red Cell Distribution Width 14.8H, Platelet Count 173, Mean Platelet Volume 11.1, Immature Granulocyte % (Auto) 2, Neutrophils (%) (Auto) 81H, Lymphocytes (%) (Auto) 13, Monocytes (%) (Auto) 4, Eosinophils (%) (Auto) 0, Basophils (%) (Auto) 0, Neutrophils # (Auto) 16.3H, Lymphocytes # (Auto) 2.7, Monocytes # (Auto) 0.9, Eosinophils # (Auto) 0.0, Basophils # (Auto) 0.0, Immature Granulocyte # (Auto) 0.3H, Sodium Level 140, Potassium Level 3.6, Chloride Level 104, Carbon Dioxide Level 22, Anion Gap 14, Blood Urea Nitrogen 29H, Creatinine 0.78, Estimat Glomerular Filtration Rate 78, BUN/Creatinine Ratio 37, Glucose Level 139H, Calcium Level 8.2L, Corrected Calcium 8.8, Phosphorus Level 3.8, Magnesium Level 1.8, Total Bilirubin 0.4, Aspartate Amino Transf (AST/SGOT) 18, Alanine Aminotransferase (ALT/SGPT) 40, Alkaline Phosphatase 112, Total Protein 5.6L, Albumin 3.2, Procalcitonin 0.04 Microbiology 10/04/21 Gram Stain - Final, Resulted 10/04/21 Sputum Culture - Preliminary, Resulted Probable Haemophilus 09/24/21 Blood Culture - Final, Complete No growth Laboratory Tests 10/04/21 04:21 10/05/21 04:05 A/P: Assessment: COVID-19 and ac resp failure Ac NSTEMI, treated with primary angioplasty and stenting of the first diag of LAD on 10/04/21 (see below) CAD - Card cath of 03/05/19 (Dr Corey at [facility]): mild CAD, normal systolic function, LVEDP not reported - Card cath in May [address] Naylor: two overlapping Letty 3.0 x 23 stents in mid to distal RCA - Card cath on 10/04/21: LMCA ok, LAD with mild plaques, D1 of LAD with 99% ostial stenosis (treated with Skypoint 2.0 x 12 stent, postdilated with a 2.5 mm non-compliant balloon), mild plaques in the LCx, multiple mild to mod stenoses and a patent stented segment in the mid to distal RCA, RCA dominant, LVEDP 24 mmHg, LVEF approx 50% S/p single chamber ICD implanted in [address] Conn in [place], [place] for nonsustained polymorphic VT, sinus pauses and prolonged QT. Replaced in Sep [address] Conn - no recent ICD discharge Chronic tobacco use Hyperlipidemia Noncompliance Plan: * Continue DAPT. She reports allergy to aspirin, but on close questioning does not report specific side effects except that had bleeding post device placement that was thought to be due to aspirin at that time * Continue Beta-javon and statin * Continue SAMIRA-inhib * Continue amlodipine * Advised compliance and to quit smoking * Advise f/u appt in 4 weeks JULIO SIBLEY Oct 05, 2021 13:50
--- NOTE | 2021-10-05 14:38 | Physical Therapy Progress Note ---
Therapy Progress Note Order for PT evaluation received. Nurse states patient is getting around on her own and is discharging from the hospital right now. No evaluation done. SAVAGE LAMB PT Oct 05, 2021 14:38
== END 2021-10-05 14:25 | disposition home or self-care (01) | DRG 981 ==
LOC: EDUNIT# 01:59 → ER FS 02:01 → 4TH 08:38 → ICU 10-04 08:26
PROVIDERS: ADMIT Family Medicine; ATTEND Internal Medicine
PROC: 5A0955A Assistance with Respiratory Ventilation, Greater than 96 Consecutive Hours, High Flow/Velocity Cannula (ICD-10-PCS; 2021-09-24)
PROC: 027034Z Dilation of Coronary Artery, One Artery with Drug-eluting Intraluminal Device, Percutaneous Approach (ICD-10-PCS; principal; 2021-10-04)
PROC: 4A023N7 Measurement of Cardiac Sampling and Pressure, Left Heart, Percutaneous Approach (ICD-10-PCS; 2021-10-04)
PROC: B2111ZZ Fluoroscopy of Multiple Coronary Arteries using Low Osmolar Contrast (ICD-10-PCS; 2021-10-04)
PROC: B2151ZZ Fluoroscopy of Left Heart using Low Osmolar Contrast (ICD-10-PCS; 2021-10-04)
DX: U07.1 COVID-19 (principal); J12.82 Pneumonia due to coronavirus disease 2019; J96.21 Acute and chronic respiratory failure with hypoxia; I21.4 Non-ST elevation (NSTEMI) myocardial infarction; J44.0 Chronic obstructive pulmonary disease with (acute) lower respiratory infection; J44.1 Chronic obstructive pulmonary disease with (acute) exacerbation; I25.10 Atherosclerotic heart disease of native coronary artery without angina pectoris; E87.6 Hypokalemia; I10 Essential (primary) hypertension; E78.00 Pure hypercholesterolemia, unspecified; I48.91 Unspecified atrial fibrillation; F17.210 Nicotine dependence, cigarettes, uncomplicated; K22.9 Disease of esophagus, unspecified; R19.7 Diarrhea, unspecified; I25.2 Old myocardial infarction; Z95.810 Presence of automatic (implantable) cardiac defibrillator; Z99.81 Dependence on supplemental oxygen; Z79.52 Long term (current) use of systemic steroids; Z88.6 Allergy status to analgesic agent; Z91.040 Latex allergy status; Z73.0 Burn-out
CPT/HCPCS: 36410; 36415; 71045; 71275; 76937; 80048; 80053; 82805; 83605; 83735; 83880; 84100; 84145; 84484; 85007; 85025; 85027; 86141; 87040; 87070; 87077; 87185; 87205; 93005; 93458; 94640; 94660; 94664; 94760; 94761; 96374; 96375

== ENCOUNTER 2021-10-06 23:13 | Emergency (ER) | payer BC ==
[~2021-10-06] VITALS: Ht 170 cm; Wt 104.0 kg
[~2021-10-06 23:13] MED LIST changes: +AMLO-250 PO; +ASPI81TA64 PO; +FLUO40CA PO; +LISI40TA9 PO; +MTP100TCR PO; +NITR0.4T42 SL; +PROM5SYR PO
[2021-10-06] MEDS ORDERED: FUROSEMIDE 40 MG/4 ML INJ (LASIX) IVP STA (23:36)
[2021-10-06] MEDS ORDERED: morphine INJ 10 MG/ML 1ML (SYR OR VIAL) IVP STA (23:36)
--- NOTE | 2021-10-06 23:44 | ED General ---
General Stated Complaint: SOB;PUI Source of Information: Patient, Old Records History of Present Illness Date Seen by Provider: Oct 06, 2021 Time Seen by Provider: 23:19 Initial Comments 51-year-old female presenting with recurrent increased shortness of breath. She was just discharged from [facility] on 10/05 after having an extended stay in the hospital for Covid pneumonia, COPD, non-STEMI with stent placement. She was doing better and was discharged home on oxygen. She states that tonight she was having increased chest pain and sensation of pleurisy especially on the right side. She was having it while she was in the hospital as well but she felt like it was managed and treated while she was in the hospital. Now that she has been home she was having increased pain and could not get her breathing under control. She was feeling more short of breath this evening. She has a low- grade fever just under 100 F. She immediately is asking for something for pain because "they didn't send me home with anything for my chest pains". Timing/Duration: 4-6 Hours Severity: Severe Modifying Factors: worse with Movement Associated Systoms: Chest Pain (right sided), Cough; No Diaphoresis; Fever/Chills, Headaches, Malaise; No Nausea/Vomiting, No Seizure; Shortness of Air; No Syncope; Weakness Allergies and Home Medications Allergies Coded Allergies: aspirin (Verified Allergy, Unknown, 03/07/19) latex (Verified Allergy, Unknown, 09/16/19) Patient Home Medication List Home Medication List Reviewed: Yes Acetaminophen (Tylenol Extra Strength) 500 Mg Tablet, 1,000 MG PO Q8H PRN for PAIN-MILD (1-4), (Reported) Entered as Reported by: POLLO BENJAMIN on 09/24/21 1339 Albuterol Sulfate (Proventil Hfa) 6.7 Gm Hfa.aer.ad, 2 PUFF INH Q6H PRN for SHORTNESS OF BREATH, (Reported) Entered as Reported by: RADHA HUANG on 06/16/21 0938 Albuterol Sulfate (Albuterol Sulfate) 2.5 Mg/3 Ml Vial.neb, 3 ML NEB Q6H PRN for SHORTNESS OF BREATH, (Reported) Entered as Reported by: RADHA HUANG on 06/16/21 0939 Amlodipine Besylate (Amlodipine Besylate) 5 Mg Tablet, 5 MG PO DAILY Prescribed by: SHARRI HILL on 10/05/21 1049 Aspirin (Children's Aspirin) 81 Mg Tab.chew, 81 MG PO DAILY Prescribed by: SHARRI HILL on 10/05/21 1049 Atorvastatin Calcium (Atorvastatin Calcium) 80 Mg Tablet, 80 MG PO HS, (Reported) Entered as Reported by: POLLO BENJAMIN on 09/24/21 1337 Clopidogrel Bisulfate (Clopidogrel) 75 Mg Tablet, 75 MG PO HS, (Reported) Entered as Reported by: POLLO BENJAMIN on 09/24/21 1337 Cyclobenzaprine HCl (Cyclobenzaprine HCl) 10 Mg Tablet, 10 MG PO BID, (Reported) Entered as Reported by: RADHA HUANG on 06/16/21 0938 Diphenhydramine HCl (Benadryl) 25 Mg Capsule, 50 MG PO HS PRN for SLEEP, (Reported) Entered as Reported by: JAMES FRIAS on 08/14/19 1054 Fluoxetine HCl (Fluoxetine HCl) 40 Mg Capsule, 40 MG PO BID, (Reported) Entered as Reported by: POLLO BENJAMIN on 09/24/21 1336 Gabapentin (Gabapentin) 400 Mg Capsule, 400 MG PO TID, (Reported) Entered as Reported by: ILYA PABLO on 04/15/21 2229 Gabapentin (Neurontin) 300 Mg Capsule, 300 MG PO TID, (Reported) Entered as Reported by: RADHA HUANG on 06/16/21 0938 Hydrocodone/Acetaminophen (Hydrocodone-Acetamin 5-325 mg) 1 Each Tablet, 1 TAB PO Q6H PRN for PAIN-SEVERE (8-10) Prescribed by: LAMIN ADLER on 10/07/21 0211 Lisinopril (Lisinopril) 40 Mg Tablet, 40 MG PO DAILY Prescribed by: SHARRI HILL on 10/05/21 1049 Metoprolol Succinate (Metoprolol Succinate) 100 Mg Tab.er.24h, 100 MG PO BID Prescribed by: SHARRI HLIL on 10/05/21 1049 Mirtazapine (Mirtazapine) 30 Mg Tablet, 30 MG PO HS, (Reported) Entered as Reported by: POLLO BENJAMIN on 09/24/21 1336 Nitroglycerin (Nitroglycerin) 0.4 Mg Tab.subl, 0 MG SL NEEDED PRN for chest pain Prescribed by: SHARRI HILL on 10/05/21 1049 Ondansetron (Ondansetron Odt) 4 Mg Tab.rapdis, 4 MG PO Q6H PRN for NAUSEA/VOMITING Prescribed by: LAMIN ADLER on 10/07/21 0210 Promethazine HCl/Codeine (Prometh-Codein 6.25-10 mg/5 ml) 5 Ml Syrup, 5 ML PO Q6H PRN for COUGH Prescribed by: SHARRI HILL on 10/05/21 1049 Discontinued Medications Metoprolol Succinate (Metoprolol Succinate) 25 Mg Tab.er.24h, 25 MG PO HS, (Reported) Entered as Reported by: POLLO BENJAMIN on 09/24/21 1338 Review of Systems Review of Systems Constitutional: chills, fever, malaise, weakness EENTM: nose congestion Respiratory: cough, dyspnea on exertion, short of breath; No stridor; wheezing Cardiovascular: see HPI, chest pain (right sided pleuritic chest pain); No edema Gastrointestinal: no symptoms reported Genitourinary: no symptoms reported Musculoskeletal: no symptoms reported Skin: No rash Psychiatric/Neurological: Weakness Hematologic/Lymphatic: Blood Clots Past Exouwsd-Klitgb-Btwzyx Hx Immunizations Up To Date Tetanus Booster (TDap): Unknown Second COVID19 Vaccination Sergio: NOT VACCINATED Third COVID19 Vaccination Date: NOT VACCINATED Seasonal Allergies Seasonal Allergies: No Past Medical History Surgery/Hospitalization HX: chest pain, cardiac history, CAD with stents, COPD, Covid Sep 2021 Surgeries: Yes (Cardiac defibrillator/pacemaker) Defibrillator, Gallbladder, Hysterectomy, Pacemaker, 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 Respiratory: Yes (Tobaccoism) COPD Cardiac: Yes (pacemaker/defib; a-fib, hx of VT, heart failure) Atrial Fibrillation, Heart Attack, High Cholesterol, Hypertension Neurological: No 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 0oz. [id number]; 34.74 BMI Method:Stated General Appearance: Anxious, Chronically ill, Moderate Distress (speaking in 2- 4 word sentences) HEENT: PERRL/EOMI, Pharynx Normal, Moist Mucous Membranes Neck: Full Range of Motion, Normal Inspection, Non Tender, Supple Respiratory: Accessory Muscle Use, Decreased Breath Sounds, Respiratory Distress; No Stridor; Wheezing Cardiovascular: Regular Rate, Rhythm, No Edema, Normal Peripheral Pulses Gastrointestinal: Normal Bowel Sounds, No Pulsatile Mass, Non Tender, Soft Rectal: Deferred Extremity: Normal Capillary Refill, Normal Inspection, No Calf Tenderness, No Pedal Edema Neurologic/Psychiatric: Alert, Oriented x3, 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 Norm as Tested Skin: Normal Color, Warm/Dry Focused Exam Lactate Level 10/06/21 23:35: Lactic Acid Level 1.28 Lactic Acid Level Laboratory Tests Test 10/06/21 23:35 Lactic Acid Level 1.28 MMOL/L (0.50-2.00) Progress/Results/Core Measures Suspected Sepsis SIRS Temperature: Pulse: Respiratory Rate: Laboratory Tests 10/06/21 23:35: White Blood Count 22.1H Blood Pressure / Mean: 10/06/21 23:35: Lactic Acid Level 1.28 Laboratory Tests 10/06/21 23:35: Creatinine 0.63, INR Comment 1.0, Platelet Count 289, Total Bilirubin 0.3 Results/Orders Lab Results Laboratory Tests Test 10/06/21 23:35 10/06/21 23:55 10/07/21 01:30 Range/Units White Blood Count 22.1 H 4.3-11.0 10^3/uL Red Blood Count 4.37 3.80-5.11 10^6/uL Hemoglobin 13.2 11.5-16.0 g/dL Hematocrit 42 35-52 % Mean Corpuscular Volume 95 80-99 fL Mean Corpuscular Hemoglobin 30 25-34 pg Mean Corpuscular Hemoglobin Concent 32 32-36 g/dL Red Cell Distribution Width 15.4 H 10.0-14.5 % Platelet Count 289 130-400 10^3/uL Mean Platelet Volume 11.4 9.0-12.2 fL Immature Granulocyte % (Auto) 1 % Neutrophils (%) (Auto) 79 H 42-75 % Lymphocytes (%) (Auto) 14 12-44 % Monocytes (%) (Auto) 5 0-12 % Eosinophils (%) (Auto) 0 0-10 % Basophils (%) (Auto) 0 0-10 % Neutrophils # (Auto) 17.5 H 1.8-7.8 X 10^3 Lymphocytes # (Auto) 3.1 1.0-4.0 X 10^3 Monocytes # (Auto) 1.2 H 0.0-1.0 X 10^3 Eosinophils # (Auto) 0.1 0.0-0.3 10^3/uL Basophils # (Auto) 0.0 0.0-0.1 10^3/uL Immature Granulocyte # (Auto) 0.2 H 0.0-0.1 10^3/uL Neutrophils % (Manual) 77 % Lymphocytes % (Manual) 19 % Monocytes % (Manual) 3 % Eosinophils % (Manual) 1 % Platelet Estimate NORMAL Blood Morphology Comment NORMAL Prothrombin Time 13.2 12.2-14.7 SEC INR Comment 1.0 0.8-1.4 Activated Partial Thromboplast Time 23 L 24-35 SEC D-Dimer 4.94 H 0.00-0.49 UG/ML Sodium Level 141 135-145 MMOL/L Potassium Level 4.2 3.6-5.0 MMOL/L Chloride Level 106 98-107 MMOL/L Carbon Dioxide Level 25 21-32 MMOL/L Anion Gap 10 5-14 MMOL/L Blood Urea Nitrogen 19 H 7-18 MG/DL Creatinine 0.63 0.60-1.30 MG/DL Estimat Glomerular Filtration Rate 99 BUN/Creatinine Ratio 30 Glucose Level 192 H 70-105 MG/DL Lactic Acid Level 1.28 0.50-2.00 MMOL/L Calcium Level 8.9 8.5-10.1 MG/DL Corrected Calcium 9.2 8.5-10.1 MG/DL Total Bilirubin 0.3 0.1-1.0 MG/DL Aspartate Amino Transf (AST/SGOT) 12 5-34 U/L Alanine Aminotransferase (ALT/SGPT) 26 0-55 U/L Alkaline Phosphatase 148 H 40-136 U/L Troponin I 1.23 *H <0.30 NG/ML C-Reactive Protein 2.22 H <0.50 MG/DL Pro-B-Type Natriuretic Peptide 2054.0 H <75.0 PG/ML Total Protein 6.4 6.4-8.2 GM/DL Albumin 3.6 3.2-4.5 GM/DL Blood Gas Puncture Site LT RADIAL Blood Gas Patient Temperature 37.7 Arterial Blood pH 7.36 L 7.37-7.43 Arterial Blood Partial Pressure CO2 52 H 35-45 MMHG Arterial Blood Partial Pressure O2 74 L 79-93 MMHG Arterial Blood HCO3 29 H 23-27 MMOL/L Arterial Blood Total CO2 31.0 21.0-31.0 MMOL/L Arterial Blood Oxygen Saturation 94 94-100 % Arterial Blood Base Excess 3.0 H -2.5-2.5 MMOL/L Andry Test YES-POS Blood Gas Ventilator Setting NO Blood Gas Inspired Oxygen 6L NASAL CANULA Urine Color YELLOW Urine Clarity CLEAR Urine pH 6.0 5-9 Urine Specific [place] 1.015 L 1.016-1.022 Urine Protein NEGATIVE NEGATIVE Urine Glucose (UA) NEGATIVE NEGATIVE Urine Ketones NEGATIVE NEGATIVE Urine Nitrite NEGATIVE NEGATIVE Urine Bilirubin NEGATIVE NEGATIVE Urine Urobilinogen 0.2 < = 1.0 MG/DL Urine Leukocyte Esterase NEGATIVE NEGATIVE Urine RBC (Auto) NEGATIVE NEGATIVE Urine RBC NONE /HPF Urine WBC RARE /HPF Urine Squamous Epithelial Cells 0-2 /HPF Urine Crystals NONE /LPF Urine Bacteria TRACE /HPF Urine Casts PRESENT /LPF Urine Hyaline Casts 2-5 H /LPF Urine Mucus NEGATIVE /LPF Urine Culture Indicated NO Urine Opiates Screen POSITIVE H NEGATIVE Urine Oxycodone Screen NEGATIVE NEGATIVE Urine Methadone Screen NEGATIVE NEGATIVE Urine Propoxyphene Screen NEGATIVE NEGATIVE Urine Barbiturates Screen NEGATIVE NEGATIVE Ur Tricyclic Antidepressants Screen NEGATIVE NEGATIVE Urine Phencyclidine Screen NEGATIVE NEGATIVE Urine Amphetamines Screen NEGATIVE NEGATIVE Urine Methamphetamines Screen NEGATIVE NEGATIVE Urine Benzodiazepines Screen POSITIVE H NEGATIVE Urine Cocaine Screen NEGATIVE NEGATIVE Urine Cannabinoids Screen NEGATIVE NEGATIVE My Orders Orders - LAMIN ADLER MD Monitor-Rhythm Ecg Trace Only (10/06/21 23:33) Ed Iv/Invasive Line Start (10/06/21 23:33) Cbc With Automated Diff (10/06/21 23:33) Comprehensive Metabolic Panel (10/06/21 23:33) Crp Fs (10/06/21 23:33) Troponin I Fs (10/06/21 23:33) Protime With Inr (10/06/21 23:33) Partial Thromboplastin Time (10/06/21 23:33) Ekg Tracing (10/06/21 23:33) Arterial Blood Gas (10/06/21 23:33) Acetaminophen Tablet/Caplet (Tylenol T (10/06/21 23:45) Blood Culture (10/06/21 23:33) Probnp Fs (10/06/21 23:33) Lactic Acid Analyzer (10/06/21 23:33) Ua Culture If Indicated (10/06/21 23:33) Drug Screen Stat (Urine) (10/06/21 23:33) Albuterol Inhaler (Albuterol) (10/06/21 23:45) Furosemide Injection (Lasix Injection) (10/06/21 23:36) Morphine Injection (Morphine Injection (10/06/21 23:36) Fibrin Degradation Products (10/06/21 23:47) Chest 1 View Ap/Pa Only (10/07/21 ) Manual Differential (10/06/21 23:35) Morphine Injection (Morphine Injection (10/07/21 02:06) Ondansetron Injection (Zofran Injectio (10/07/21 02:06) Rx-Hydrocodone/Apap 5-325 Mg (Rx-Vicodin (10/07/21 02:15) Medications Given in ED Current Medications Medications Dose Ordered Sig/Norma Route Start Time Stop Time Status Last Admin Dose Admin Acetaminophen 650 mg ONCE ONCE PO 10/06/21 23:45 10/06/21 23:46 DC 10/07/21 00:00 650 MG Acetaminophen/ Hydrocodone Bitart 1 ea Q6H PRN PO 10/07/21 02:15 10/07/21 02:51 DC 10/07/21 02:15 1 EA Albuterol Sulfate 2 PUFFS inhaled q 2 ho... Q2H PRN IH 10/06/21 23:45 10/07/21 02:51 DC 10/06/21 23:49 8.5 GM Vital Signs/I&O 10/07/21 10/07/21 10/07/21 00:11 00:14 02:45 Temp 37.7 Pulse 98 89 Resp 28 19 B/P (MAP) 163/112 (129) 127/80 Pulse Ox 96 97 O2 Delivery Nasal Cannula Room Air Nasal Cannula O2 Flow Rate 6.00 4.00 5.00 Capillary Refill : Progress Note #1: Progress Note As she was just in the hospital for all of the symptoms well try to repeat blood work including ABG and cardiac enzymes. Check a chest x-ray to look for effusion, heart failure, infiltrate, pneumothorax. Try a dose of Lasix for possible heart failure effusion. Morphine for air hunger and pleuritic chest wall pain. Albuterol inhaler with spacer for shortness of breath Progress Note #2: Progress Note Blood count shows elevated white blood cell count of 22,000. This is just slightly elevated from yesterday when she was discharged. Her lactic acid is not elevated at 1.28. Her troponin is still elevated just over 1 however it was over 9 on the . She has normal Cr. ABG appears stable and has O2 sat in low 90s. She has chronic pulmonary vascular congestion and diffuse patchy infiltrates on her lungs. Her breathing is improved from arrival with getting medicine in the ED. Progress Note #3: Progress Note Patient appears to be breathing comfortably and continues to maintain her oxygen saturations here in the ED. Her pleuritic chest pain was doing better after medication. Her labs appear overall stable with improving troponin. She has continued diffuse patchy infiltrates on her chest x-ray and has poor respiratory effort tonight compared to 2 days ago with her last chest x-ray. Will check with the patient and see if she has medicine she can tolerate for helping with chest wall pain and pleuritic chest pain. Have her continue with treatment from her discharge from [place] done yesterday. Follow-up through cardiology and the clinic for continued concerns and for routine care and follow-up of her recent stent placement for non-STEMI Patient reports that in the past when she has had pain in chest the Hydrocodone and cough syrup are the only medicines that have helped her. She has Phenergan with codeine already prescribed. Will add on Hydrocodone and advised her to increase use of her Incentive spirometer to help increase air movement and to use the narcotic sparingly as it could suppress her respiratory drive and make her not breath as deep or as often which could exacerbate her COPD and Pneumonia from the Covid ECG Initial ECG Impression Date: Oct 06, 2021 Initial ECG Impression Time: 23:46 Initial ECG Rate: 97 Initial ECG Rhythm: Normal Sinus Initial ECG Comparisson: Unchanged Comment Sinus rhythm with a heart rate of 97 bpm. MT interval 150 ms. QT interval 326 ms with a QTc interval 440 ms. Lateral lead minimal ST elevation. Appears similar to prior tracings in the system. Diagnostic Imaging Diagonstic Imaging: Xray Plain Films/CT/US/NM/MRI: chest Comments On my review of her 1 view chest x-ray she has poor inspiratory effort compared to the previous film. She has continued diffuse patchy infiltrates throughout her lungs. Reviewed: Reviewed by Me Departure Impression Primary Impression: Acute and chronic respiratory failure with hypoxia Additional Impressions: Pleuritic chest pain COPD exacerbation Pneumonia due to COVID-19 virus Disposition: HOME, SELF-CARE Condition: Improved Departure-Patient Inst. Decision time for Depature: 02:08 Referrals: RICHARD HERMAN MD (PCP/Family) Primary Care Physician Patient Instructions: COPD Exacerbation, Adult ED, COVID-19 ED, Pleuritic Chest Pain ED Add. Discharge Instructions: Continue on your medicines from discharge when you left the hospital Monday. Follow up with your doctor and the Cardiology doctor about your health. Increase the use of your Incentive Spirometer to at least 3 or 4 times a day to help improve air movement and expanding your lungs. Scripts Ondansetron (Ondansetron Odt) 4 Mg Tab.rapdis 4 MG PO Q6H PRN for NAUSEA/VOMITING for 7 Days, #28 TAB 0 Refills Prov: LAMIN ADLER MD 10/07/21 Hydrocodone/Acetaminophen (Hydrocodone-Acetamin 5-325 mg) 1 Each Tablet 1 TAB PO Q6H PRN for PAIN-SEVERE (8-10) for 5 Days, #20 TAB 0 Refills Prov: LAMIN ADLER MD 10/07/21 LAMIN ADLER MD Oct 06, 2021 23:44
[2021-10-06] MEDS ORDERED: RT-ALBUTEROL HFA 8.5 GM INHALER IH PRN (23:45)
[2021-10-06] MEDS ORDERED: ACETAMINOPHEN 325 MG TABLET PO ONE (23:45)
[2021-10-07 00:11] LABS: PROTHROMBIN TIME PATIENT 13.2 SEC (12.2-14.7)
[2021-10-07 00:12] LABS: HEMATOCRIT 42 % (35-52); HEMOGLOBIN 13.2 g/dL (11.5-16.0); MEAN CORPUSCULAR HEMOGLOBIN 30 pg (25-34); MEAN CORPUSCULAR HGB CONC 32 g/dL (32-36); MEAN CORPUSCULAR VOLUME 95 fL (80-99); MEAN PLATELET VOLUME 11.4 fL (9.0-12.2); PLATELET COUNT 289 10^3/uL (130-400); WHITE BLOOD COUNT 22.1 10^3/uL (4.3-11.0)
[2021-10-07 00:13] LABS: BASOPHILS % (AUTO) 0 % (0-10); EOSINOPHILS # (AUTO) 0.1 10^3/uL (0.0-0.3); EOSINOPHILS % (AUTO) 0 % (0-10); LYMPHOCYTES # (AUTO) 3.1 X 10^3 (1.0-4.0); LYMPHOCYTES % (AUTO) 14 % (12-44); MONOCYTES # (AUTO) 1.2 X 10^3 (0.0-1.0); MONOCYTES % (AUTO) 5 % (0-12); NEUTROPHILS # (AUTO) 17.5 X 10^3 (1.8-7.8); NEUTROPHILS % (AUTO) 79 % (42-75)
[2021-10-07 00:23] LABS: ABG OXYGEN SATURATION 94 % (94-100); ABG PCO2 52 MMHG (35-45); ABG PH 7.36 (7.37-7.43); ABG PO2 74 MMHG (79-93)
[2021-10-07 00:24] LABS: ALLENS TEST YES-POS
[2021-10-07 00:25] LABS: INSPIRED O2 6L NASAL CANULA; PATIENT TEMP 37.7; VENTILATOR NO
[2021-10-07 00:31] LABS: BILIRUBIN,TOTAL 0.3 MG/DL (0.1-1.0); CALCIUM 8.9 MG/DL (8.5-10.1); CREATININE SERUM 0.63 MG/DL (0.60-1.30); POTASSIUM 4.2 MMOL/L (3.6-5.0)
[2021-10-07 00:33] LABS: ALBUMIN 3.6 GM/DL (3.2-4.5); TOTAL PROTEIN 6.4 GM/DL (6.4-8.2)
[2021-10-07 00:42] LABS: EOSINOPHILS % (MANUAL) 1 %; LYMPHOCYTES % (MANUAL) 19 %; MONOCYTES % (MANUAL) 3 %; NEUTROPHILS % (MANUAL) 77 %
[2021-10-07 00:43] LABS: PLATELET ESTIMATE NORMAL; RBC MORPH NORMAL
[2021-10-07 01:41] LABS: BILIRUBIN,URINE NEGATIVE (NEGATIVE); CLARITY,URINE CLEAR; COLOR,URINE YELLOW; GLUCOSE, URINE (UA) NEGATIVE (NEGATIVE); KETONES,URINE NEGATIVE (NEGATIVE); LEUKOCYTE ESTERASE ,URINE NEGATIVE (NEGATIVE); NITRITE,URINE NEGATIVE (NEGATIVE); PROTEIN,URINE NEGATIVE (NEGATIVE)
[2021-10-07 01:52] LABS: BACTERIA,URINE TRACE /HPF; SQUAMOUS EPITHELIAL CELL,UR 0-2 /HPF; WBC,URINE RARE /HPF
[2021-10-07 01:54] LABS: AMPHETAMINE SCREEN, URINE NEGATIVE (NEGATIVE); BARBITURATE SCREEN URINE NEGATIVE (NEGATIVE); BENZODIAZEPINES SCREEN URINE POSITIVE (NEGATIVE); CANNABINOID SCREEN, URINE NEGATIVE (NEGATIVE); COCAINE SCREEN URINE NEGATIVE (NEGATIVE); METHADONE STAT NEGATIVE (NEGATIVE); METHAMPHETAMINE SCREEN URINE S NEGATIVE (NEGATIVE); OPIATE SCREEN URINE POSITIVE (NEGATIVE); OXYCODONE STAT NEGATIVE (NEGATIVE); PROPOXYPHENE STAT NEGATIVE (NEGATIVE); TRICYCLIC ANTIDEPRESSANTS SCRE NEGATIVE (NEGATIVE)
[2021-10-07] MEDS ORDERED: ONDANSETRON 4 MG/2 ML (SDV) Z0FRAN IVP STA (02:06)
[2021-10-07] MEDS ORDERED: morphine INJ 10 MG/ML 1ML (SYR OR VIAL) IVP STA (02:06)
[2021-10-07] MEDS ORDERED: ACHD5005 PO (02:10)
[2021-10-07] MEDS ORDERED: ONDA4TAB11 PO (02:10)
[2021-10-07 02:45] VITALS: BP 127/80
--- NOTE | 2021-10-07 05:28 | Diagnostic Imaging Report ---
INDICATION: Shortness of air recently, released from the hospital. EXAMINATION: Chest 10/07/2021 COMPARISON: 10/04/2021 FINDINGS: Single view chest There is a left-sided pacemaker stable. There is cardiomegaly and pulmonary vascular congestion. Persistent diffuse bilateral infiltrates noted. There are no significant effusions. There is no pneumothorax. IMPRESSION: 1. Persistent diffuse bilateral infiltrates, right worse than left. 2. Pulmonary vascular congestion. Dictated by: Dictated on workstation # [id number]
== END 2021-10-07 02:45 | disposition home or self-care (01) ==
LOC: EDUNIT# 23:13 → ER FS 23:15
DX: U07.1 COVID-19 (principal); J12.82 Pneumonia due to coronavirus disease 2019; J44.1 Chronic obstructive pulmonary disease with (acute) exacerbation; I11.0 Hypertensive heart disease with heart failure; I50.9 Heart failure, unspecified; G89.29 Other chronic pain; M54.9 Dorsalgia, unspecified; I25.2 Old myocardial infarction; E78.00 Pure hypercholesterolemia, unspecified; I48.91 Unspecified atrial fibrillation; Z91.040 Latex allergy status; Z79.82 Long term (current) use of aspirin; Z79.01 Long term (current) use of anticoagulants; Z79.899 Other long term (current) drug therapy
CPT/HCPCS: 36415; 71045; 80053; 80306; 81000; 82805; 83605; 83880; 84484; 85007; 85027; 85379; 85610; 85730; 86141; 87040; 93005; 93041

== ENCOUNTER 2021-10-08 18:04 | Emergency (ER) | payer BC ==
--- NOTE | 2021-10-08 18:16 | ED Chest Pain ---
General Chief Complaint: Code Blue Stated Complaint: CODE BLUE Source: patient History of Present Illness Date Seen by Provider: Oct 08, 2021 Time Seen by Provider: 18:08 Initial Comments Patient is a 51-year-old female who presents in asystole/PEA after unwitnessed [place] cardiac arrest last seen 30 minutes prior to found unresponsive. Patient initially found in asystole with multiple rounds of chest compressions, epinephrine and bicarb performed along with Combitube placement without return of spontaneous circulation. Patient remains in PEA on ED arrival with fixed and dilated pupils and ultrasound findings of PEA. Patient with recent recent Covid and known CAD. History is limited by the patient's clinical condition. History obtained by EMS. Timing/Duration: 1 hour Severity/Quality: other Location: other Radiation: other Activities at Onset: other Prior CP/Workup: other Modifying Factors: improves with other Allergies and Home Medications Allergies Coded Allergies: aspirin (Verified Allergy, Unknown, 03/07/19) latex (Verified Allergy, Unknown, 09/16/19) Patient Home Medication List Home Medication List Reviewed: Yes Acetaminophen (Tylenol Extra Strength) 500 Mg Tablet, 1,000 MG PO Q8H PRN for PAIN-MILD (1-4), (Reported) Entered as Reported by: POLLO BENJAMIN on 09/24/21 1339 Albuterol Sulfate (Proventil Hfa) 6.7 Gm Hfa.aer.ad, 2 PUFF INH Q6H PRN for SHORTNESS OF BREATH, (Reported) Entered as Reported by: RADHA HUANG on 06/16/21 0938 Albuterol Sulfate (Albuterol Sulfate) 2.5 Mg/3 Ml Vial.neb, 3 ML NEB Q6H PRN for SHORTNESS OF BREATH, (Reported) Entered as Reported by: RADHA HUANG on 06/16/21 0939 Amlodipine Besylate (Amlodipine Besylate) 5 Mg Tablet, 5 MG PO DAILY Prescribed by: SHARRI HILL on 10/05/21 1049 Aspirin (Children's Aspirin) 81 Mg Tab.chew, 81 MG PO DAILY Prescribed by: SHARRI HILL on 10/05/21 1049 Atorvastatin Calcium (Atorvastatin Calcium) 80 Mg Tablet, 80 MG PO HS, (Reported) Entered as Reported by: POLLO BENJAMIN on 09/24/21 1337 Clopidogrel Bisulfate (Clopidogrel) 75 Mg Tablet, 75 MG PO HS, (Reported) Entered as Reported by: POLLO BENJAMIN on 09/24/21 1337 Cyclobenzaprine HCl (Cyclobenzaprine HCl) 10 Mg Tablet, 10 MG PO BID, (Reported) Entered as Reported by: RADHA HUANG on 06/16/21 0938 Diphenhydramine HCl (Benadryl) 25 Mg Capsule, 50 MG PO HS PRN for SLEEP, (Reported) Entered as Reported by: JAMES FRIAS on 08/14/19 1054 Fluoxetine HCl (Fluoxetine HCl) 40 Mg Capsule, 40 MG PO BID, (Reported) Entered as Reported by: POLLO BENJAMIN on 09/24/21 1336 Gabapentin (Gabapentin) 400 Mg Capsule, 400 MG PO TID, (Reported) Entered as Reported by: ILYA PABLO on 04/15/21 2229 Gabapentin (Neurontin) 300 Mg Capsule, 300 MG PO TID, (Reported) Entered as Reported by: RADHA HUANG on 06/16/21 0938 Hydrocodone/Acetaminophen (Hydrocodone-Acetamin 5-325 mg) 1 Each Tablet, 1 TAB PO Q6H PRN for PAIN-SEVERE (8-10) Prescribed by: LAMIN ADLER on 10/07/21 0211 Lisinopril (Lisinopril) 40 Mg Tablet, 40 MG PO DAILY Prescribed by: SHARRI HILL on 10/05/21 1049 Metoprolol Succinate (Metoprolol Succinate) 100 Mg Tab.er.24h, 100 MG PO BID Prescribed by: SHARRI HILL on 10/05/21 1049 Mirtazapine (Mirtazapine) 30 Mg Tablet, 30 MG PO HS, (Reported) Entered as Reported by: POLLO BENJAMIN on 09/24/21 1336 Nitroglycerin (Nitroglycerin) 0.4 Mg Tab.subl, 0 MG SL NEEDED PRN for chest pain Prescribed by: SHARRI HILL on 10/05/21 1049 Ondansetron (Ondansetron Odt) 4 Mg Tab.rapdis, 4 MG PO Q6H PRN for NAUSEA/VOMITING Prescribed by: LAMIN ADLER on 10/07/21 0210 Promethazine HCl/Codeine (Prometh-Codein 6.25-10 mg/5 ml) 5 Ml Syrup, 5 ML PO Q6H PRN for COUGH Prescribed by: SHARRI HILL on 10/05/21 1049 Discontinued Medications Metoprolol Succinate (Metoprolol Succinate) 25 Mg Tab.er.24h, 25 MG PO HS, (Reported) Entered as Reported by: POLLO BENJAMIN on 09/24/21 1338 Review of Systems Review of Systems Constitutional: see HPI EENTM: See HPI Respiratory: See HPI Cardiovascular: See HPI Gastrointestinal: See HPI Genitourinary: See HPI Musculoskeletal: see HPI Skin: see HPI Psychiatric/Neurological: See HPI Endocrine: See HPI Hematologic/Lymphatic: See HPI All Other Systems Reviewed Negative Unless Noted: Yes Past Klurpks-Ennxor-Soqmjr Hx Patient Social History Tobacco Use?: Yes Immunizations Up To Date Tetanus Booster (TDap): Unknown First/Initial COVID19 Vaccinat: denies Second COVID19 Vaccination Sergio: NOT VACCINATED Third COVID19 Vaccination Date: NOT VACCINATED Seasonal Allergies Seasonal Allergies: No Past Medical History Surgery/Hospitalization HX: chest pain, cardiac history, CAD with stents, COPD, Covid Sep 2021 Surgeries: Yes (Cardiac defibrillator/pacemaker) Defibrillator, Gallbladder, Hysterectomy, Pacemaker, 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 Respiratory: Yes (Tobaccoism) COPD Cardiac: Yes (pacemaker/defib; a-fib, hx of VT, heart failure) Atrial Fibrillation, Heart Attack, High Cholesterol, Hypertension 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 0oz. 90.286321ok; 35.00 BMI Method:Stated General Appearance: Other (Unresponsive, manual respirations via Combitube) HEENT: Other (Pupils fixed and dilated) Neck: Supple Respiratory: Lungs Clear, Normal Breath Sounds Cardiovascular: Other (absent hear sounds) Gastrointestinal: Soft Neurologic/Psychiatric: Other (Unresponsive, GCS 3) Departure Communication (Admissions) Patient remains in PEA with fixed and dilated pupils. And without demonstrable ejection fraction on bedside ultrasound despite ongoing CPR efforts lasting greater than 30 minutes. Tube placement, chest Compressions and epinephrine continued on ED arrival without response. Patient pronounced at 1807. Patient family members notified. Impression Primary Impression: Cardiac arrest Disposition: 20 Condition: Departure-Patient Inst. Referrals: RICHARD HERMAN MD (PCP/Family) Primary Care Physician ARISTEO COYNE DO Oct 08, 2021 18:16
== END 2021-10-08 22:50 | disposition expired ==
LOC: EDUNIT# 18:04 → ER FS 18:04
DX: I46.9 Cardiac arrest, cause unspecified (principal); J44.9 Chronic obstructive pulmonary disease, unspecified; I25.2 Old myocardial infarction; I11.0 Hypertensive heart disease with heart failure; I50.9 Heart failure, unspecified; I48.91 Unspecified atrial fibrillation; E78.00 Pure hypercholesterolemia, unspecified; G89.29 Other chronic pain; M54.9 Dorsalgia, unspecified; Z72.0 Tobacco use; Z79.82 Long term (current) use of aspirin; Z79.01 Long term (current) use of anticoagulants; Z79.891 Long term (current) use of opiate analgesic; Z79.899 Other long term (current) drug therapy
CPT/HCPCS: 36680